=== PATIENT | female | born 1935 | race Caucasian/White ===

== ENCOUNTER → 2021-06-15 | Outpatient (REF) | payer MEDICARE, MEDICAID, SELFPAY ==
[2021-06-15 08:28] LABS: Absolute Lymphocyte Count 2.11 X10^3/uL (0.83-4.51); Absolute Neutrophil Count 3.4 X10^3/uL (2.0-7.7); Basophil# 0.05 X10^3/uL; Basophil% 0.8 % (0-1); Eosinophil# 0.24 X10^3/uL; Eosinophils% 3.7 % (0-5); Hematocrit 39.2 % (37-47); Hemoglobin 12.1 g/dL (12.0-15.0); Lymphocyte # 2.11 X10^3/ul (0.83-4.51); Lymphocyte % 32.8 % (19-41); Mean Corp Hgb Conc 30.9 g/dL (32-36); Mean Corpuscular Hgb 28.3 pg (27.0-32.0); Mean Corpuscular Volume 91.6 fL (81-99); Mean Platelet Vol. 11.2 fl (6.2-12.0); Monocyte# 0.65 X10^3/uL; Monocyte% 10.1 % (0-10); NRBC Flagged by Analyzer 0 % (0-5); Neutrophil # 3.37 X10^3/uL (2.7-7.7); Neutrophil % 52.3 % (47-70); Platelet Count 278 K/mm3 (150-450); RBC Distribution Width CV 16.3 % (11.6-14.6); Red Blood Count 4.28 M/mm3 (4.2-5.4); White Blood Count 6.4 K/mm3 (4.4-11.0)
[2021-06-15 08:46] LABS: ALB/GLOB Ratio 0.8 RATIO (0.9-2.4); AST(SGOT) 15 U/L (15-37); Alanine Aminotransfer ALT/SGPT 15 U/L (13-56); Albumin, Serum 2.9 g/dL (3.2-5.0); Alkaline Phosphatase 69 U/L (45-117); Anion Gap 7 (5-15); BUN 17 mg/dL (7-18); BUN/Creat Ratio 17.1 RATIO (10-20); Calcium,Total 9.3 mg/dL (8.5-10.1); Chloride 107 mmol/L (98-107); Cholesterol 134 mg/dL (200); EST Glomerular Filtration Rate 56 mL/min (>60); Est Glom Filt Rate - Afr Amer 68 mL/min (>60); Globulin 3.8 g/dL (2.2-4.2); Glucose 69 mg/dL (74-106); High Density Lipoprotein 59 mg/dL; Potassium 4.1 mmol/L (3.5-5.1); Protein, Total 6.7 g/dL (6.4-8.2); Sodium Level 141 mmol/L (136-145); Thyroid Stim Hormone (TSH) 0.33 uIU/mL (0.358-3.74); Triglycerides 80 mg/dL; Very Low Density Lipoprotein 16 mg/dL (5-40)
[2021-06-15 08:49] LABS: Vitamin D,25 Hydroxy 27.2 ng/mL
[2021-06-15 09:23] LABS: Hemoglobin A1c 6.9 % (3.8-5.6)
== END | disposition home or self-care (01) ==
LOC: OLS.SWAL 04:00
PROVIDERS: Visit Provider Internal Medicine
DX: E11.69 Type 2 diabetes mellitus with other specified complication (principal); E11.22 Type 2 diabetes mellitus with diabetic chronic kidney disease; N18.9 Chronic kidney disease, unspecified; E07.9 Disorder of thyroid, unspecified; E55.9 Vitamin D deficiency, unspecified
CPT/HCPCS: 36415; 80053; 80061; 82306; 83036; 83735; 84443; 85025

== ENCOUNTER 2021-08-22 09:51 | Emergency (ER) | payer MEDICARE, MEDICAID, SELFPAY ==
[2021-08-22 09:52] VITALS: BP 230/82; PULSE 59; RESP 14; TEMP 36.2; O2SAT 96; BMI 32.0
[2021-08-22 09:56] VITALS: BP 230/82; PULSE 59; RESP 14; TEMP 36.2; O2SAT 96
[2021-08-22 10:05] VITALS: BP 197/90; PULSE 55; RESP 15; O2SAT 97
--- NOTE | 2021-08-22 10:09 | CT_ITS ---
STUDY: CT BRAIN WITHOUT CONTRAST REASON FOR EXAM: Female, 86 years old. Dizziness. RADIATION DOSAGE (If Supplied By Facility): CTDIvol = ( 44.99 ) mGy, DLP = ( 745.49 ) mGycm TECHNIQUE: Transaxial CT imaging of the brain was performed without administration of intravenous contrast material. Individualized dose optimization techniques were used for this CT. COMPARISON: No relevant priors. FINDINGS: Normal soft tissue structures. Normal calvarium. There is moderate cerebral atrophy with widening of the extra-axial spaces and ventricular dilatation. There are areas of decreased attenuation within the white matter tracts of the supratentorial brain, consistent with microvascular disease changes. Right posterior parietal subcortical low-density lesion without associated mass effect or shift of the midline likely representing old infarct. Small bilateral old lacunar infarcts. Normal brainstem. Normal cerebellum. There is no intracranial hemorrhage. Atherosclerotic calcifications of the cavernous internal carotid arteries. Normal visualized paranasal sinuses. CT/Brain/Head without Contrast IMPRESSION: 1. Chronic involutional changes of the brain. 2. Right posterior parietal low-density lesion without mass effect or shift of midline likely due to old infarct. Correlation with MRI of the brain is recommended to exclude subacute changes or underlying mass. 3. Small bilateral lacunar infarcts in basal ganglia. 4. Otherwise no acute intracranial process. Electronically Signed: David Girard MD at 11:05 EDT ,
--- NOTE | 2021-08-22 10:09 | EKG12_ITS ---
Test Reason : DIZZINESS Blood Pressure : / mmHG Vent. Rate : 047 BPM Atrial Rate : 047 BPM P-R Int : 162 ms QRS Dur : 084 ms QT Int : 484 ms P-R-T Axes : 029 063 009 degrees QTc Int : 428 ms Sinus bradycardia with sinus arrhythmia Otherwise normal ECG Confirmed by SHANNAN FLOYD, RIAN ([id number]), newspaper copy editor PABLO MYLES ([id number]) on 08/25/2021 11:13:03 AM Referred By: NORBERTO Confirmed By:RIAN CAMPBELL MD
--- NOTE | 2021-08-22 10:10 | ED.VIS.STROK ---
HPI History of Present Illness Chief Complaint: Dizziness Informant: patient Onset/Context/Timing Onset: Weeks Context: Gradual Onset Timing: Intermittent Quality and Location: Negative for Right Facial Droop, Left Facial Droop, Right Face Paresthesia, Left Face Parasthesia, Right Arm Parasthesia, Right Leg Parasthesia, Left Leg Parasthesia, Right Arm Weakness, Left Arm Weakness, Right Leg Weakness, Left Leg Weakness, Slurred Speech, Expressive Aphasia and Receptive Aphasia Current Severity: Mild Maximum Severity: Moderate Associated Symptoms Associated Symptoms: Positive for Nausea and Vomiting; Negative for Headache and Chest Pain Narrative Narrative: 86-year-old female from an extended care facility. Has an extensive past medical history of stroke, COPD, diabetes and mild dementia. Reportedly brought in today for dizziness worse with head movement. She had nausea and vomiting today. This may have been going on for several days to significantly longer. Patient states she basically has not felt well since her son of lung cancer 3 months ago. She denies any headache or fall. She denies any chest pain or shortness of breath. She denies any abdominal pain or any fever. Prior similar symptoms: No Recent Illness/Hospitalization: No PFSH PFSH Medical History Carotid artery occlusion Cerebral infarct COPD (chronic obstructive pulmonary disease) Dementia Depression Diabetes GERD (gastroesophageal reflux disease) Hearing loss Kidney disease Obesity Thyroid disease UTI (urinary tract infection) Weakness Home Medications meclizine 25 mg PO TID PRN #20 tab 08/22/21 [Rx Last Taken Unknown] ondansetron 4 mg PO Q8H PRN 3 Days tab 08/22/21 [Rx Last Taken Unknown] Allergy/AdvReac Type Severity Reaction Status Date / Time banana Allergy Hives Verified 08/22/21 09:57 peanut butter Allergy Hives Uncoded 08/22/21 09:57 Social History Smoking Status: Never smoker ROS ROS ED ROS Narrative Room spinning dizziness. Nausea and vomiting. Review of Systems ROS Unobtainable: Denies due to encephalopathy Constitutional Constitutional ED: Denies fever(s) Eyes Eyes: Denies change in vision ENT ENT ED: Denies ear pain Cardiovascular Cardiovascular: Denies chest pain Respiratory/Chest Respiratory/Chest: Denies dyspnea Gastrointestinal Gastrointestinal: Reports nausea and vomiting; Denies abdominal pain or diarrhea Genitourinary Genitourinary ED: Denies dysuria Musculoskeletal Musculoskeletal: Denies myalgias Integumentary Denies rash Neurologic Neurologic: Denies headache(s) Psychiatric Psychiatric: Denies depression Endocrine Endocrinology: Denies polyuria Hematologic/Lymphatic Hematologic/Lymphatic: Denies easy bruising Allergic/Immunologic Allergic/Immunologic ED: Denies urticaria EXAM Physical Exam Narrative Exam Narrative: 86-year-old female no acute distress. Vital signs initially blood pressure 230/82 1 mm no evidence 187/90. She is in no distress. She is holding an emesis bag. H EENT exam pupils are round reactive light. No facial droop. Normal speech. No head trauma. Neck nontender. Lungs clear to auscultation. Heart regular rhythm no murmur. Abdomen soft nontender. Neurologically she is awake. She is alert. She knows she is at the hospital. She is moving all 4 extremities. 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 Dorsi plantarflexion intact. NIH score of 0. Hallpike maneuvers she states it does make her dizziness worse. Ear canals there is no significant wax. Const Vital Signs: 08/22/21 09:52 08/22/21 09:56 08/22/21 10:01 Temperature 97.2 F L 97.2 F L Temperature Source Temporal Temporal Pulse Rate 59 L 59 L Respiratory Rate 14 14 Respiratory Effort Normal Non-Labored Respiratory Pattern Normal Blood Pressure 230/82 H 230/82 H Blood Pressure Mean 131 131 Pulse Ox 96 96 Oxygen Delivery Method Room Air Room Air 08/22/21 10:05 08/22/21 11:03 Temperature 96.9 F L Temperature Source Temporal Pulse Rate 55 L 88 Respiratory Rate 15 17 Respiratory Effort Respiratory Pattern Blood Pressure 197/90 H 153/76 H Blood Pressure Mean 125 101 Pulse Ox 97 92 Oxygen Delivery Method Room Air Nasal Cannula Positive well nourished and well developed; Negative for cachectic, contractures or unkempt General Appearance ED: well developed and NAD; Negative for unkempt, cachectic or contractures Nutritional Appearance: Negative for cachectic HEENT Reports moist mucous membranes atraumatic; Negative for trauma Eyes PERRL and EOMs intact bilaterally General Eye ED: Negative for pale conjunctiva or scleral icterus Neck no lymphadenopathy, supple and no JVD General: Negative for tenderness Chest Wall inspection of chest normal and palpation of chest normal Resp normal respiratory effort and clear to auscultation bilaterally Auscultation: Negative for rales, rhonchi or wheezes Cardio no murmurs Rate: regular rate Rhythm: regular rhythm Heart Sounds: S1 normal and S2 normal GI normal to inspection, nondistended, normoactive bowel sounds, soft to palpation, non-tender, non-distended and no masses Inspection: Negative for abdominal distention Auscultation: normoactive bowel sounds Palpation: Negative for tender, guarding or rebound tenderness present Back/Spine no CVA tenderness General Back: Negative for CVA tenderness Cervical Spine: Negative for cervical spine tenderness Thoracic Spine / Upper Back: Negative for thoracic spinal tenderness Extremity normal to inspection General Extremety ED: Negative for deformity, edema or tenderness General Extremity: Negative for deformity or edema Neuro Sensorium / Orientation: alert, oriented to person and oriented to place Speech: speech normal Motor Exam: strength 5/5 throughout Psych mental status grossly normal Appearance: Negative for unkempt Attitude: No agitated Mood & Affect: depressed; Negative for tearful Skin no wounds Lesions: no lesions Rashes: no rashes STROKE Vital Signs/Narrative: Vital Signs Temp Pulse Resp BP Pulse Ox 08/22/21 11:03 96.9 F L 88 17 153/76 H 92 08/22/21 10:05 55 L 15 197/90 H 97 08/22/21 09:56 97.2 F L 59 L 14 230/82 H 96 08/22/21 09:52 97.2 F L 59 L 14 230/82 H 96 MDM MDM MDM Narrative Medical decision making narrative: 86-year-old female with dizziness may be vertigo. She also has acute on chronic hypertension. She will be treated with Zofran for her nausea. Liter of fluid. Screening labs and CAT scan to be obtained. She will be given Ativan for suspected vertigo. Repeat exams the patient is asleep after being giving the medications both for nausea Zofran and Ativan for the dizziness that we feel is most likely vertigo. She will be reassessed. Currently her pressure is much better 153/76. She is resting comfortably. She will be discharged back to the [facility] after a period of observation. Lab Data Attestation: I reviewed the patient's lab results. Lab results narrative: CBC normal white count 9. H&H 12 and 39. Electrolytes unremarkable gap of 5 normal BUN and creatinine of 12 and 1 glucose 190. Labs: Laboratory Results - last 24 hr 08/22/21 08/22/21 10:20 10:20 WBC 9.2 RBC 4.25 Hgb 12.3 Hct 39.6 MCV 93.2 MCH 28.9 MCHC 31.1 L RDW Std Deviation 48.3 H RDW Coeff of Suzy 14.1 Plt Count 230 MPV 10.7 Immature Gran % (Auto) 0.300 Neut % (Auto) 77.9 H Lymph % (Auto) 14.8 L [place] % (Auto) 5.5 Eos % (Auto) 1.0 Baso % (Auto) 0.5 Absolute Neuts (auto) 7.2 Absolute Lymphs (auto) 1.37 Nucleated RBC % 0 Sodium 142 Potassium 4.1 Chloride 108 H Carbon Dioxide 29.0 Anion Gap 5 BUN 12 Creatinine 1.08 H Estim Creat Clear Calc 30.67 Est GFR (MDRD) Af Amer 62 Est GFR (MDRD) Non-Af 51 L BUN/Creatinine Ratio 11.1 Glucose 190 H Calcium 9.1 Radiography Diagnostic Testing: Clinical Impression(s) from Imaging Studies Brain CT 08/22/21 10:09 IMPRESSION: 1. Chronic involutional changes of the brain. 2. Right posterior parietal low-density lesion without mass effect or shift of midline likely due to old infarct. Correlation with MRI of the brain is recommended to exclude subacute changes or underlying mass. 3. Small bilateral lacunar infarcts in basal ganglia. 4. Otherwise no acute intracranial process. Electronically Signed: David Girard MD at 11:05 EDT , CAT scan shows most likely an old right posterior infarct. Along with other chronic changes. Rhythm Strip Rhythm Strip: Sinus Rhythm Rate: 47 EKG Initial EKG: Attestation: I personally reviewed and interpreted this EKG as follows: Interpretation: Sinus Rhythm and Sinus Bradycardia Comments: Sinus bradycardia rate of 47 no acute signs of LA or ischemia. Stroke Documentation Questions Stroke Team Activated: No Discharge Plan Triage Chief Complaint: Dizziness ED Provider: Ady Prajapati Dx/Rx/DC Orders Clinical Impression: Dizziness, Vertigo, History of stroke, History of essential hypertension Instructions: ED BPV Vertigo Prescriptions: New meclizine 25 mg tablet 25 mg PO TID PRN (Reason: dizziness) Qty: 20 RF: 0 ondansetron 4 mg tablet,disintegrating 4 mg PO Q8H PRN (Reason: nausea and vomiting) 3 Days RF: 0 Primary Care Provider: Billie De Leon Referrals: Billie De Leon MD [Primary Care Provider] - 3-5 Days if not improving Activity Restrictions/Additional Instructions: Dizziness secondary to vertigo. Antivert for the vertigo. Follow-up if not improving. Zofran for nausea. Disposition Disposition: Home, Self Care
[2021-08-22] MEDS: Ondansetron 4 MG/2 ML Vial IV (10:21)
[2021-08-22] MEDS: 0.9% Normal Saline 1,000 ML 1000 ML IV (10:21)
[2021-08-22] MEDS: LORazepam 2 MG/ML Syringe 1 MG IV (10:22)
[2021-08-22 10:32] LABS: Absolute Lymphocyte Count 1.37 X10^3/uL (0.83-4.51); Absolute Neutrophil Count 7.2 X10^3/uL (2.0-7.7); Basophil# 0.05 X10^3/uL; Basophil% 0.5 % (0-1); Eosinophil# 0.09 X10^3/uL; Hematocrit 39.6 % (37-47); Hemoglobin 12.3 g/dL (12.0-15.0); Lymphocyte # 1.37 X10^3/ul (0.83-4.51); Lymphocyte % 14.8 % (19-41); Mean Corp Hgb Conc 31.1 g/dL (32-36); Mean Corpuscular Hgb 28.9 pg (27.0-32.0); Mean Corpuscular Volume 93.2 fL (81-99); Mean Platelet Vol. 10.7 fl (6.2-12.0); Monocyte# 0.51 X10^3/uL; Monocyte% 5.5 % (0-10); NRBC Flagged by Analyzer 0 % (0-5); Neutrophil # 7.19 X10^3/uL (2.7-7.7); Neutrophil % 77.9 % (47-70); Platelet Count 230 K/mm3 (150-450); RBC Distribution Width CV 14.1 % (11.6-14.6); RBC Distribution Width SD 48.3 fl (35.1-43.9); Red Blood Count 4.25 M/mm3 (4.2-5.4); White Blood Count 9.2 K/mm3 (4.4-11.0)
[2021-08-22 10:45] LABS: Anion Gap 5 (5-15); BUN 12 mg/dL (7-18); BUN/Creat Ratio 11.1 RATIO (10-20); Calcium,Total 9.1 mg/dL (8.5-10.1); Chloride 108 mmol/L (98-107); Creatinine, Serum 1.08 mg/dL (0.55-1.02); EST Glomerular Filtration Rate 51 mL/min (>60); Est Glom Filt Rate - Afr Amer 62 mL/min (>60); Estimated Creatinine Clearance 30.67 ml/min; Glucose 190 mg/dL (74-106); Potassium 4.1 mmol/L (3.5-5.1); Sodium Level 142 mmol/L (136-145)
[2021-08-22 11:03] VITALS: BP 153/76; PULSE 88; RESP 17; TEMP 36.1; O2SAT 92
[2021-08-22 12:58] VITALS: BP 145/52; PULSE 73; RESP 17; O2SAT 95
[2021-08-22 14:26] VITALS: PULSE 67; RESP 16
== END 2021-08-22 14:35 | disposition home or self-care (01) ==
PROVIDERS: Emergency Provider Emergency Medicine; PCP Internal Medicine; Visit Provider Emergency Medicine
DX: R42 Dizziness and giddiness (principal); F03.90 Unspecified dementia, unspecified severity, without behavioral disturbance, psychotic disturbance, mood disturbance, and anxiety; J44.9 Chronic obstructive pulmonary disease, unspecified; E11.9 Type 2 diabetes mellitus without complications; Z86.73 Personal history of transient ischemic attack (TIA), and cerebral infarction without residual deficits; K21.9 Gastro-esophageal reflux disease without esophagitis; Z87.440 Personal history of urinary (tract) infections; E66.9 Obesity, unspecified; I10 Essential (primary) hypertension; Z68.32 Body mass index [BMI] 32.0-32.9, adult
CPT/HCPCS: 70450; 80048; 85025; 93005; 96361; 96374; 96375; 99285; J7030; J2405

== ENCOUNTER 2021-10-24 13:27 | Inpatient (IN) | payer MEDICARE, MEDICAID, SELFPAY ==
[2021-10-24 13:28] VITALS: BP 159/53; PULSE 58; RESP 18; TEMP 36.8; O2SAT 94; BMI 34.9
--- NOTE | 2021-10-24 13:36 | ED.VIS.LOWEX ---
HPI History of Present Illness Chief Complaint: Lower Extremity Injury Informant: patient Occured/Mechanism Mechanism/Context: Yes fall Onset/Context/Timing Onset: Today Quality of Pain: Aching and Throbbing Current Severity: Mild Maximum Severity: Moderate Narrative Narrative: Patient presents from [facility] secondary to fall with left foot and ankle injury. She reportedly fell out of bed this morning. When she tried to get her self back up she fell again. She states she is unable to put any weight on her left foot and ankle. She denies any other injury from the fall. Injury occurred nearly 2 hours prior to arrival. [facility] Medical History Carotid artery occlusion Cerebral infarct COPD (chronic obstructive pulmonary disease) Dementia Depression Diabetes GERD (gastroesophageal reflux disease) Hearing loss Kidney disease Obesity Thyroid disease UTI (urinary tract infection) Weakness Home Medications clopidogrel 75 mg PO DAILY 08/22/21 [History Last Taken Unknown] glipizide 2.5 mg PO DAILY 08/22/21 [History Last Taken Unknown] meclizine 25 mg PO TID PRN #20 tab 08/22/21 [Rx Last Taken Unknown] ondansetron 4 mg PO Q8H PRN 3 Days tab 08/22/21 [Rx Last Taken Unknown] atorvastatin 20 mg PO QHS 10/24/21 [History Last Taken Unknown] bisacodyl 10 mg [place] DAILY PRN 10/24/21 [History Last Taken Unknown] ferrous sulfate 325 mg PO BID 10/24/21 [History Last Taken Unknown] fluoxetine 20 mg PO DAILY 10/24/21 [History Last Taken Unknown] insulin glargine 16 unit SUBCUT BREAKFAST 10/24/21 [History Last Taken Unknown] levothyroxine 88 mcg PO DAILY 10/24/21 [History Last Taken Unknown] magnesium hydroxide [Milk of Magnesia] 30 ml PO DAILY PRN 10/24/21 [History Last Taken Unknown] metformin 1,000 mg PO BID 10/24/21 [History Last Taken Unknown] metoclopramide HCl [Reglan] 5 mg PO BID 10/24/21 [History Last Taken Unknown] pantoprazole 40 mg PO DAILY 10/24/21 [History Last Taken Unknown] pioglitazone 30 mg PO DAILY 10/24/21 [History Last Taken Unknown] Allergy/AdvReac Type Severity Reaction Status Date / Time banana Allergy Hives Verified 10/24/21 13:31 peanut butter Allergy Hives Uncoded 10/24/21 13:31 Social History Smoking Status: Former smoker ROS ROS ED Constitutional Constitutional ED: Denies chills or fever(s) Eyes Eyes: Denies change in vision ENT ENT ED: Denies sore throat Cardiovascular Cardiovascular: Denies chest pain Respiratory/Chest Respiratory/Chest: Denies cough or dyspnea Gastrointestinal Gastrointestinal: Denies abdominal pain, nausea or vomiting Musculoskeletal Musculoskeletal: Reports arthralgias; Denies back pain or neck pain Integumentary Denies Abrasions or rash Neurologic Neurologic: Denies headache(s) or paresthesias Psychiatric Psychiatric: Denies anxiety or depression Allergic/Immunologic Allergic/Immunologic ED: Denies urticaria EXAM Physical Exam Const Vital Signs: 10/24/21 13:28 Temperature 98.2 F Temperature Source Oral Pulse Rate 58 L Respiratory Rate 18 Blood Pressure 159/53 H Blood Pressure Mean 88 Pulse Ox 94 Oxygen Delivery Method Room Air Positive well nourished and well developed General Appearance ED: well developed HEENT Reports moist mucous membranes Eyes PERRL Neck full ROM and supple Chest Wall inspection of chest normal and palpation of chest normal Resp normal respiratory effort and clear to auscultation bilaterally Cardio regular rate and regular rhythm GI non-tender Palpation: soft Extremity Extremity Narrative: Tenderness palpation with mild edema over the lateral malleolus of the left ankle. No tenderness at the knee or hip. Strong distal pulses. No abrasions or ecchymoses. Neuro oriented x3 Sensorium / Orientation: alert Psych mental status grossly normal Skin Lesions: no lesions Rashes: no rashes MDM MDM MDM Narrative Medical decision making narrative: Patient sent for x-rays of the left foot and ankle. Lab Data Labs: Laboratory Results - last 24 hr 10/24/21 10/24/21 14:15 14:15 WBC 14.0 H RBC 4.41 Hgb 12.7 Hct 41.4 MCV 93.9 MCH 28.8 MCHC 30.7 L RDW Std Deviation 51.2 H RDW Coeff of Suzy 14.6 Plt Count 279 MPV 10.8 Immature Gran % (Auto) 0.400 Neut % (Auto) 78.6 H Lymph % (Auto) 14.0 L [place] % (Auto) 5.7 Eos % (Auto) 1.0 Baso % (Auto) 0.3 Absolute Neuts (auto) 11.0 H Absolute Lymphs (auto) 1.96 Nucleated RBC % 0 Sodium 139 Potassium 4.2 Chloride 105 Carbon Dioxide 26.0 Anion Gap 8 BUN 27 H Creatinine 1.22 H Estim Creat Clear Calc 27.15 Est GFR (MDRD) Af Amer 54 L Est GFR (MDRD) Non-Af 45 L BUN/Creatinine Ratio 22.1 H Glucose 113 H Calcium 9.3 Radiography Diagnostic Testing: Clinical Impression(s) from Imaging Studies Ankle X-Ray 10/24/21 13:42 IMPRESSION: Trimalleolar fractures with disruption of the tibiotalar joint. Electronically Signed: David Girard MD at 14:28 EDT , Foot X-Ray 10/24/21 13:42 IMPRESSION: Images of the distal tibia and fibula better visualized on the ankle views. No other fractures are seen. Electronically Signed: David Girard MD at 14:30 EDT , Treatment and Re-Evaluation Narrative: Left foot and ankle x-rays reveal a trimalleolar ankle fracture per my interpretation. At that time IV line is established and lab work obtained. Patient given a small dose of morphine for pain control. Ankle was placed in a posterior plus sugar-tong Ortho-Glass splint. Following splint application she has good cap refill in her toes. I spoke with Dr. Francisco for podiatry. He reviewed the patient's images and will see the patient in consult in the emergency room. EKG and chest x-ray will be obtained for preop clearance. In light of the patient's history of COPD, diabetes, reflux, dementia I will speak with hospitalist for admission. Discharge Plan Triage Chief Complaint: Lower Extremity Injury ED Provider: Margarita Jamison Dx/Rx/DC Orders Clinical Impression: Closed trimalleolar fracture of ankle Prescriptions: No Action meclizine 25 mg tablet 25 mg PO TID PRN (Reason: dizziness) Qty: 20 RF: 0 ondansetron 4 mg tablet,disintegrating 4 mg PO Q8H PRN (Reason: nausea and vomiting) 3 Days RF: 0 clopidogrel 75 mg tablet 75 mg PO DAILY RF: 0 glipizide 5 mg tablet 2.5 mg PO DAILY RF: 0 atorvastatin 20 mg Tablet 20 mg PO QHS RF: 0 metoclopramide HCl [Reglan] 5 mg Tablet 5 mg PO BID RF: 0 magnesium hydroxide [Milk of Magnesia] 400 mg/5 mL Suspension 30 ml PO DAILY PRN (Reason: Constipation) RF: 0 bisacodyl 10 mg Suppository 10 mg [place] DAILY PRN (Reason: Constipation) RF: 0 pantoprazole 40 mg Tablet,Delayed Release (Dr/Ec) 40 mg PO DAILY RF: 0 ferrous sulfate 325 mg (65 mg iron) Tablet 325 mg PO BID RF: 0 metformin 1,000 mg Tablet 1,000 mg PO BID RF: 0 pioglitazone 30 mg Tablet 30 mg PO DAILY RF: 0 fluoxetine 20 mg Capsule 20 mg PO DAILY RF: 0 insulin glargine 100 unit/mL Cartridge 16 unit SUBCUT BREAKFAST RF: 0 levothyroxine 88 mcg Capsule 88 mcg PO DAILY RF: 0 Primary Care Provider: Billie De Leon Referrals: Billie De Leon MD [Primary Care Provider] - Disposition Disposition: Acute Care Hospital [facility]
--- NOTE | 2021-10-24 13:42 | RAD_ITS ---
STUDY: X-RAY - LEFT ANKLE REASON FOR EXAM: Female, 86 years old. Injury TECHNIQUE: 3 view(s) of the ankle. COMPARISON: None. FINDINGS: Oblique displaced fracture of the distal fibula. Intra-articular fracture of the posterior distal tibia. Transverse displaced fracture of the medial malleolus. Normal medial and lateral malleoli. Widening and mild lateral subluxation of the tibiotalar joint. Plantar and posterior calcaneal spurs. The visualized subtalar, talonavicular, calcaneocuboid and tarsal articulations are normal. Soft tissue swelling. RAD/Ankle min 3 Views IMPRESSION: Trimalleolar fractures with disruption of the tibiotalar joint. Electronically Signed: David Girard MD at 14:28 EDT ,
--- NOTE | 2021-10-24 13:42 | RAD_ITS ---
STUDY: X-RAY - LEFT FOOT CLINICAL: Female, 86 years old. Injury TECHNIQUE: 3 view(s) of the foot. COMPARISON: None. FINDINGS: Plantar and posterior calcaneal spurs. Normal visualized subtalar, talonavicular, calcaneocuboid, tarsal and tarsometatarsal articulations. Normal metatarsi. Normal metatarsophalangeal joint of the great toe. Normal tibial and fibular sesamoid bones. Normal interphalangeal joint of the great toe. Normal phalanges of the great toe. Normal second through fifth metatarsophalangeal joints. Normal interphalangeal joints and phalanges of the lesser toes. Fractures of the distal tibia and fibula are again seen. Unremarkable soft tissues. RAD/Foot min 3 Views IMPRESSION: Images of the distal tibia and fibula better visualized on the ankle views. No other fractures are seen. Electronically Signed: David Girard MD at 14:30 EDT ,
[2021-10-24] MEDS: Ondansetron 4 MG/2 ML Vial IV (14:16)
[2021-10-24] MEDS: Morphine 2 MG/ML Syringe IV (14:16)
[2021-10-24 14:22] LABS: Absolute Lymphocyte Count 1.96 X10^3/uL (0.83-4.51); Basophil# 0.04 X10^3/uL; Basophil% 0.3 % (0-1); Eosinophil# 0.14 X10^3/uL; Hematocrit 41.4 % (37-47); Hemoglobin 12.7 g/dL (12.0-15.0); Lymphocyte # 1.96 X10^3/ul (0.83-4.51); Mean Corp Hgb Conc 30.7 g/dL (32-36); Mean Corpuscular Hgb 28.8 pg (27.0-32.0); Mean Corpuscular Volume 93.9 fL (81-99); Mean Platelet Vol. 10.8 fl (6.2-12.0); Monocyte% 5.7 % (0-10); NRBC Flagged by Analyzer 0 % (0-5); Neutrophil # 10.97 X10^3/uL (2.7-7.7); Neutrophil % 78.6 % (47-70); Platelet Count 279 K/mm3 (150-450); RBC Distribution Width CV 14.6 % (11.6-14.6); RBC Distribution Width SD 51.2 fl (35.1-43.9); Red Blood Count 4.41 M/mm3 (4.2-5.4)
[2021-10-24 14:36] LABS: Anion Gap 8 (5-15); BUN 27 mg/dL (7-18); BUN/Creat Ratio 22.1 RATIO (10-20); Calcium,Total 9.3 mg/dL (8.5-10.1); Chloride 105 mmol/L (98-107); Creatinine, Serum 1.22 mg/dL (0.55-1.02); EST Glomerular Filtration Rate 45 mL/min (>60); Est Glom Filt Rate - Afr Amer 54 mL/min (>60); Estimated Creatinine Clearance 27.15 ml/min; Glucose 113 mg/dL (74-106); Potassium 4.2 mmol/L (3.5-5.1); Sodium Level 139 mmol/L (136-145)
--- NOTE | 2021-10-24 15:08 | CT_ITS ---
STUDY: CT LEFT ANKLE WITHOUT CONTRAST REASON FOR EXAM: Female, 86 years old. Trimalleolar ankle fracture RADIATION DOSAGE (If Supplied By Facility): CTDIvol = ( 15.35 ) mGy, DLP = ( 395.98 ) mGycm TECHNIQUE: Thin section transaxial imaging of the ankle was obtained, with sagittal and coronal reconstructed images. Individualized dose optimization techniques were used for this CT. COMPARISON: Radiographs of the foot and ankle of the same day. FINDINGS: Displaced fracture of the distal fibula. Adjacent small intra-articular fracture of the anterior distal tibia. Intra-articular slightly displaced fracture of the posterior distal tibia. Comminuted displaced fracture of the medial malleolus. Normal tibiotalar articulation and talar dome. The remainder of the osseous structures appear intact. Plantar and posterior vertebral spurs. Widening of the medial aspect of the tibiotalar joint with minimal medial subluxation of the distal tibia. Mild widening of the medial aspect of the ankle mortise. Normal tarsometatarsal articulations and visualized metatarsi. Diffuse soft tissue swelling. CT/Extremity Lower without Contra IMPRESSION: Fractures of the distal tibia and fibula as described above with disruption of the tibiotalar joint. Electronically Signed: David Girard MD at 15:49 EDT ,
--- NOTE | 2021-10-24 15:11 | EKG12_ITS ---
Test Reason : DYSRYTHMIA Blood Pressure : / mmHG Vent. Rate : 061 BPM Atrial Rate : 061 BPM P-R Int : 158 ms QRS Dur : 080 ms QT Int : 436 ms P-R-T Axes : 058 065 026 degrees QTc Int : 438 ms Sinus rhythm with Premature atrial complexes Otherwise normal ECG Confirmed by LO FLOYD, RAUL ([id number]), science editor JESSIKA LINDSEY ([id number]) on 10/26/2021 12:43:13 PM Referred By: JAMES Confirmed By:RAUL BLANCHARD MD
--- NOTE | 2021-10-24 15:27 | RAD_ITS ---
STUDY: X-RAY CHEST REASON FOR EXAM: Female, 86 years old. Shortness of breath TECHNIQUE: Single AP portable view of the chest. COMPARISON: None. FINDINGS: No focal infiltrate is seen. There is no demonstrated pleural abnormality. There is mild cardiac enlargement. Normal mediastinum and toya. Normal visualized pulmonary arteries. Normal visualized aortic arch and descending thoracic aorta. The osseous structures are grossly intact. There is no demonstrated abnormality of the visualized soft tissue structures of the upper abdomen. RAD/Chest 1 View (Portable) IMPRESSION: 1. Borderline to mild cardiomegaly. 2. No active pulmonary disease. Electronically Signed: David Girard MD at 15:51 EDT ,
--- NOTE | 2021-10-24 15:38 | PCM.HP.STD ---
HPI - General General Date of Admission: 10/24/21 Date of Service: 10/24/21 Chief Complaint: Fall in residential resulting into left ankle injury today HPI Narrative FANG HERNDON, is a 86 F was brought to ED from [facility] after she fell with left foot and ankle injury. As per nursing note, Jose Armando from the bed was not able to get up and required 2 people assist. Complain of left ankle pain and swelling. Unable to put any weight on left foot. Ankle x-ray shows trimalleolar fracture with disruption of tibiotalar joint. Manufacturing Inspector Dr. Francisco is consulted. Chest x-ray shows no active pulmonary disease, mild cardiomegaly. CT lower extremity shows distal tibia fibular fracture with disruption of tibiotalar joint. Patient does not have any recent chest pain, anginal-like symptoms, shortness of breath on exertion, wheezing, dizziness, near-syncope or syncope. She fell down because of loss of balance denies any prodromal symptoms. No loss of consciousness. Denies recent UTI or burning micturition bleeding. No constipation. Had bowel movement today. [facility] Medical History Carotid artery occlusion Cerebral infarct COPD (chronic obstructive pulmonary disease) Dementia Depression Diabetes GERD (gastroesophageal reflux disease) Hearing loss Kidney disease Obesity Thyroid disease UTI (urinary tract infection) Weakness Home Medications clopidogrel 75 mg PO DAILY 08/22/21 [History Last Taken Unknown] glipizide 2.5 mg PO DAILY 08/22/21 [History Last Taken Unknown] meclizine 25 mg PO TID PRN #20 tab 08/22/21 [Rx Last Taken Unknown] ondansetron 4 mg PO Q8H PRN 3 Days tab 08/22/21 [Rx Last Taken Unknown] atorvastatin 20 mg PO QHS 10/24/21 [History Last Taken Unknown] bisacodyl 10 mg [place] DAILY PRN 10/24/21 [History Last Taken Unknown] ferrous sulfate 325 mg PO BID 10/24/21 [History Last Taken Unknown] fluoxetine 20 mg PO DAILY 10/24/21 [History Last Taken Unknown] insulin glargine 16 unit SUBCUT BREAKFAST 10/24/21 [History Last Taken Unknown] levothyroxine 88 mcg PO DAILY 10/24/21 [History Last Taken Unknown] magnesium hydroxide [Milk of Magnesia] 30 ml PO DAILY PRN 10/24/21 [History Last Taken Unknown] metformin 1,000 mg PO BID 10/24/21 [History Last Taken Unknown] metoclopramide HCl [Reglan] 5 mg PO BID 10/24/21 [History Last Taken Unknown] pantoprazole 40 mg PO DAILY 10/24/21 [History Last Taken Unknown] pioglitazone 30 mg PO DAILY 10/24/21 [History Last Taken Unknown] Allergy/AdvReac Type Severity Reaction Status Date / Time banana Allergy Hives Verified 10/24/21 13:31 peanut butter Allergy Hives Uncoded 10/24/21 13:31 Social History Smoking Status: Former smoker ROS ROS Narrative Constitutional: Mild chronic fatigue and weakness. No fever HEENT: Reports systems reviewed and no addt'l complaints, except as documented Respiratory/Chest: Denies chest pain, shortness of breath at rest or with mild exertion Gastrointestinal: Denies coffee ground emesis, hematemesis or vomiting Genitourinary: Denies burning urination or new urinary tract symptoms Musculoskeletal: Ambulates on a walker. Rest as mentioned in HPI Neurologic: Denies seizure-like activity skin: No ulcer. No rash Endocrinology: Hypothyroidism, diabetes mellitus type 2. Blood sugar controlled. Reports systems reviewed and no addt'l complaints, except as documented Hematologic/Lymphatic: Reports systems reviewed and no addt'l complaints, except as documented Psychiatric: Dementia, depression Rest 14 ROS are incomplete/unobtainable because of history of dementia and depression Vital Signs Vital Signs Vital Signs: 10/24/21 13:28 Temperature 98.2 F Temperature Source Oral Pulse Rate 58 L Respiratory Rate 18 Blood Pressure 159/53 H Blood Pressure Mean 88 Pulse Ox 94 Oxygen Delivery Method Room Air Weight Weight: 190 lb 14.725 oz Body Mass Index (BMI) 34.9 Physical Exam Narrative Physical exam General: Alert, Oriented x3, Cooperative HEENT: Atraumatic, PERRLA, EOMI, Normocephalic Oral: Oral mucosa dry. No Gingival or Mucosal Lesions/ Ulcerations Neck: Supple, No JVD, Negative Carotid Bruits Lungs: Air entry diminished in bilateral lung bases. No crepitation/rhonchi Cardiovascular: Regular rate, Regular Rhythm, Normal S1, Normal S2, No murmurs Abdomen: Bowel Sounds Present, Soft, Non Tender, Non-Distended : No renal angle tenderness. No suprapubic tenderness. Extremities: No edema, Capillary Refill Less than 3 Seconds Skin: No rashes, No breakdown Musculoskeletal: Left ankle is Marlon wrapped. Swelling and tenderness over left ankle. Bilateral knee arthritis. Osteoporosis Neurological: Cranial nerves II-XII grossly intact, DTR 2+/4 and Symmetrical, Neuro grossly intact Psych/Mental Status: Normal Affect, Appropriate. Results Lab / Micro Data Result Diagrams: 10/24/21 14:15 10/24/21 14:15 Labs: Laboratory Results - last 24 hr 10/24/21 14:15: WBC 14.0 H, RBC 4.41, Hgb 12.7, Hct 41.4, MCV 93.9, MCH 28.8, MCHC 30.7 L, RDW Std Deviation 51.2 H, RDW Coeff of Suzy 14.6, Plt Count 279, MPV 10.8, Immature Gran % (Auto) 0.400, Neut % (Auto) 78.6 H, Lymph % (Auto) 14.0 L, [place] % (Auto) 5.7, Eos % (Auto) 1.0, Baso % (Auto) 0.3, Absolute Neuts (auto) 11.0 H, Absolute Lymphs (auto) 1.96, Nucleated RBC % 0 10/24/21 14:15: Sodium 139, Potassium 4.2, Chloride 105, Carbon Dioxide 26.0, Anion Gap 8, BUN 27 H, Creatinine 1.22 H, Estim Creat Clear Calc 27.15, Est GFR (MDRD) Af Amer 54 L, Est GFR (MDRD) Non-Af 45 L, BUN/Creatinine Ratio 22.1 H, Glucose 113 H, Calcium 9.3 Radiology Impression Ankle X-Ray 10/24/21 13:42 IMPRESSION: Trimalleolar fractures with disruption of the tibiotalar joint. Electronically Signed: David Girard MD at 14:28 EDT , Foot X-Ray 10/24/21 13:42 IMPRESSION: Images of the distal tibia and fibula better visualized on the ankle views. No other fractures are seen. Electronically Signed: David Girard MD at 14:30 EDT , Assessment & Plan Assessment/Plan (1) Closed trimalleolar fracture of ankle: PLAN: 1. Closed left trimalleolar fracture: CT left ankle individually reviewed and shows closed, comminuted displaced fracture of medial malleolus, displaced fracture of distal fibula, small intra-articular fracture of anterior distal tibia. Disruption of tibiotalar joint. Patient is being admitted on [facility] floor. Plavix is held. Patient is moderate perioperative risk for ankle surgery. Plan for surgery tomorrow by online marketing manager Dr. Francisco. 2. Hypertension: Blood pressure is elevated. Started on lisinopril 5 mg daily. Monitor blood pressure and adjust antihypertensive medications accordingly. Magnesium 1.7. 3. Diabetes mellitus type 2: Glucose in BMP is 113, seems controlled. Accu-Chek insulin is covered with Humalog sliding scale. Hold oral hypoglycemic agents. 4. CKD stage IV: Creatinine is 1.22, BUN 77. Estimated creatinine clearance 77 mill per hour. Monitor BMP daily. 5. History of cerebral infarct, carotid artery occlusion, depression and dementia: Patient lost his son about 6 months ago. He does not have good memory. Continue antidepression medication. 6. Other comorbidities include GERD, hypothyroidism and dyslipidemia: Home medication reconciliation done. On Dulcolax suppository as needed, continued. Continue fluoxetine VTE prophylaxis Heparin 5000 Units twice daily. Hold the night dose before surgery Charges/Coding Visit Charges Inpatient E&M: 62738 Init Hosp L3 Procedures Hospitalists Procedures: 35366 Advncd Care Plan 30 Min
[2021-10-24 15:44] VITALS: BP 177/61; PULSE 62; RESP 18; TEMP 36.8; O2SAT 95
--- NOTE | 2021-10-24 15:50 | ED.RN ---
ATTEMPTED TO TRY TO CALL [facility] ON ADMISSION OF PT. WENT TO [facility]
[2021-10-24 15:59] LABS: Magnesium 1.7 mg/dL (1.6-2.6)
--- NOTE | 2021-10-24 16:29 | CON.PCM_ITS ---
Assessment & Plan Assessment/Plan (1) Closed trimalleolar fracture of ankle: QUALIFIERS: Encounter type: initial encounter Laterality: left Qualified Code(s): S82.852A - Displaced trimalleolar fracture of left lower leg, initial encounter for closed fracture PLAN: Patient examined evaluated, all findings discussed patient detail. Radiographs demonstrate a unstable pronation abduction type ankle fracture to left lower extremity with moderate displacement. CT scan to left lower extremity ordered. Demonstrates displaced trimalleolar ankle fracture with large posterior malleolus fragment. In order to regain function and restore ambulation this patient will require open reduction internal fixation. Skin appears to be intact, edema is well managed, there is mild concerns of for some peripheral arterial disease as patient has history of stroke possible coronary artery disease uncertain. Upon detailed neurovascular examination there are intact pulses, in order to restore function of the limb we will plan for operative management of the fracture on Tuesday of this week. The procedure inherent risks benefits alternative treatments discussed with patient in detail. Due to patient's advanced age and severity of the fracture operative management is required to restore function and prevent any functional decline of the patient due to prolonged nonweightbearing. Patient will be admitted due to unstable gait issue will likely require recovery in the halfway facility. Clopidogrel placed on hold until postprocedure. Patient remain nonweightbearing in her posterior splint until time of operative management. Recommend physical therapy consultation. Recommend case management consultation. Patient receiving oxycodone and morphine as needed for pain control. Patient comfortable at this time no evidence of compartment syndrome or intractable pain. Will continue to follow the patient closely. Surgical management planned for Tuesday of this week. Time is to be determined. HPI Consult Data Date of Consult: 10/24/21 HPI Narrative HPI Narrative: FANG HERNDON, is a 86 F who presents to the ED with a left ankle fracture after falling out of bed at her assisted living facility this morning. Patient noted immediate pain and swelling with inability to bear weight. Patient states that she typically ambulates assisted by a walker, but notes that this is minimal and limited to transfer to the bathroom and kitchen. Patient reports a history of stroke and takes Plavix daily. Patient notes that her pain is well controlled at this time. Patient denies any chest pain calf pain shortness of breath has no other complaints or musculoskeletal pain at this time. Patient denies any neuropraxia or loss in sensation. [facility] Medical History Carotid artery occlusion Cerebral infarct COPD (chronic obstructive pulmonary disease) Dementia Depression Diabetes GERD (gastroesophageal reflux disease) Hearing loss Kidney disease Obesity Thyroid disease UTI (urinary tract infection) Weakness Home Medications clopidogrel 75 mg PO DAILY 08/22/21 [History Last Taken Unknown] glipizide 2.5 mg PO DAILY 08/22/21 [History Last Taken Unknown] meclizine 25 mg PO TID PRN #20 tab 08/22/21 [Rx Last Taken Unknown] ondansetron 4 mg PO Q8H PRN 3 Days tab 08/22/21 [Rx Last Taken Unknown] atorvastatin 20 mg PO QHS 10/24/21 [History Last Taken Unknown] bisacodyl 10 mg [place] DAILY PRN 10/24/21 [History Last Taken Unknown] ferrous sulfate 325 mg PO BID 10/24/21 [History Last Taken Unknown] fluoxetine 20 mg PO DAILY 10/24/21 [History Last Taken Unknown] insulin glargine 16 unit SUBCUT BREAKFAST 10/24/21 [History Last Taken Unknown] levothyroxine 88 mcg PO DAILY 10/24/21 [History Last Taken Unknown] magnesium hydroxide [Milk of Magnesia] 30 ml PO DAILY PRN 10/24/21 [History Last Taken Unknown] metformin 1,000 mg PO BID 10/24/21 [History Last Taken Unknown] metoclopramide HCl [Reglan] 5 mg PO BID 10/24/21 [History Last Taken Unknown] pantoprazole 40 mg PO DAILY 10/24/21 [History Last Taken Unknown] pioglitazone 30 mg PO DAILY 10/24/21 [History Last Taken Unknown] Allergy/AdvReac Type Severity Reaction Status Date / Time banana Allergy Hives Verified 10/24/21 13:31 peanut butter Allergy Hives Uncoded 10/24/21 13:31 Social History Smoking Status: Former smoker ROS Constitutional Constitutional: Denies anorexia, body ache(s) or change in weight Eyes Eyes: Denies blind spots, bloody eye or decreased night vision ENT HEENT: Denies dental pain, foreign body in nose or mouth pain Cardiovascular Cardiovascular: Denies abdominal edema, abdominal pain or chest pain with activity Respiratory/Chest Respiratory/Chest: Denies change in phlegm color, chest congestion or dyspnea on exertion Gastrointestinal Gastrointestinal: Denies belching, bloating or change in bowel habits Physical Exam Narrative Patient is alert oriented to person place and time. Patient seen in bed with intact posterior splint along with sugar-tong. This was removed to eat further evaluate patient's neurovascular status. Vascular: Dorsalis pedis posterior tibial and perforating peroneal pulses biphasic on Doppler examination to left lower extremity. There are some trophic changes to the skin with diminished digital hair growth. Capillary fill time is brisk to lesser digits. +1 pitting edema to left lower extremity perimalleolar region. Neurologic: Light touch protective sensation intact. Patient able to wiggle her digits. Dermatologic: Some ecchymosis to the medial and lateral ankle with associated edema. No evidence of skin tenting or impending skin breakdown. Musculoskeletal: Slight posterior lateral dislocation of left ankle. Left lower extremity strength and range of motion testing deferred due to unstable trimalleolar ankle fracture. Pain limited to ankle, but diffuse in nature. No other musculoskeletal pain at this time. Lab / Micro Data Result Diagrams: 10/24/21 14:15 10/24/21 14:15 Labs: Laboratory Results - last 24 hr 10/24/21 14:15: WBC 14.0 H, RBC 4.41, Hgb 12.7, Hct 41.4, MCV 93.9, MCH 28.8, MCHC 30.7 L, RDW Std Deviation 51.2 H, RDW Coeff of Suzy 14.6, Plt Count 279, MPV 10.8, Immature Gran % (Auto) 0.400, Neut % (Auto) 78.6 H, Lymph % (Auto) 14.0 L, [place] % (Auto) 5.7, Eos % (Auto) 1.0, Baso % (Auto) 0.3, Absolute Neuts (auto) 11.0 H, Absolute Lymphs (auto) 1.96, Nucleated RBC % 0 10/24/21 14:15: Sodium 139, Potassium 4.2, Chloride 105, Carbon Dioxide 26.0, Anion Gap 8, BUN 27 H, Creatinine 1.22 H, Estim Creat Clear Calc 27.15, Est GFR (MDRD) Af Amer 54 L, Est GFR (MDRD) Non-Af 45 L, BUN/Creatinine Ratio 22.1 H, Glucose 113 H, Calcium 9.3 10/24/21 14:15: Magnesium 1.7 Radiology Impression Ankle X-Ray 10/24/21 13:42 IMPRESSION: Trimalleolar fractures with disruption of the tibiotalar joint. Electronically Signed: David Girard MD at 14:28 EDT Reading Location ID and State: [facility] / [place] Tel , Service support , Foot X-Ray 10/24/21 13:42 IMPRESSION: Images of the distal tibia and fibula better visualized on the ankle views. No other fractures are seen. Electronically Signed: David Girard MD at 14:30 EDT Reading Location ID and State: [facility] / [place] Tel , Service support , Lower Extremity CT 10/24/21 15:08 IMPRESSION: Fractures of the distal tibia and fibula as described above with disruption of the tibiotalar joint. Electronically Signed: David Girard MD at 15:49 EDT Reading Location ID and State: [facility] / [place] Tel , Service support , Chest X-Ray 10/24/21 15:27 IMPRESSION: 1. Borderline to mild cardiomegaly. 2. No active pulmonary disease. Electronically Signed: David Girard MD at 15:51 EDT Reading Location ID and State: [facility] / [place] Tel , Service support ,
--- NOTE | 2021-10-24 16:38 | CM.ED ---
FATOU Case Management Note Admitting Diagnosis: Trimallolar Fracture Information Source: Patient Patient currently resides at [facility]. She reports that she has been at [facility] for four months.. since April. Patient said that prior to living at [facility] she resides in an apartment. Patient said that she and her son had lived together but he had of stomach cancer. Next of Kin: Patient said that she has no LNOK as I have outlived them. Patient said that her only child, son, has . Patient said that she has relatives in [place]. Living will and HCPOA- Patient reports she has the Advanced Directives. However, SW did not seen them scanned into the chart. PCP: Patient said that she has no idea who her PCP is. Patient's chart noted that Dr. Billie De Leon is patient's PCP. Specialist: Patient reports she has no specialist Insurance : Patient reports she has [employer]. Patient's chart notes that patient has [employer] and [employer]. RX Insurance: Patient reports [employer] [facility] Lives with: Self Living Arrangements: 1 floor Steps: Patient reports 4 steps ADL's: Patient said that she is independent in her ADL's. Employed: Patient is retired. 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 Alcohol use: Denied Smoking: Denied currently but stated she had smoked when she was younger Safe at Home: Patient said that she felt safe at home until today when she fell. Transportation: Patient reports she does not drive. Patient said that she used to drive. Patient has a shower chair, walker, rails/grab bars. Patient reports no previous SNF or Home Health Care. Patient said that she came to the in 1956 and then her . Patient said that she had one son. DME Needs at Discharge: Unknown Discharge Plan: Undetermined Jess CLEMENTE
[2021-10-24 16:59] VITALS: PULSE 59; BMI 35.1
[2021-10-24 17:50] VITALS: O2SAT 95
[2021-10-24] MEDS: Lactated Ringers 1,000 ML 75 ML IV (20:30)
[2021-10-24] MEDS: Acetaminophen 325 MG Tablet 650 MG PO (20:30)
[2021-10-24] MEDS: Atorvastatin Calcium 20 MG Tablet PO (20:31)
[2021-10-24] MEDS: Lisinopril 5 MG Tablet PO (20:31)
[2021-10-24] MEDS: Heparin Injection (Vial) 5,000 UNIT/ML VIAL 5000 UNIT SC (20:32)
[2021-10-24] MEDS: Insulin Lispro 100 UNIT/ML INSULN.PEN SC (20:48)
[2021-10-24 21:00] VITALS: BP 126/38; PULSE 63; RESP 16; TEMP 37; O2SAT 95
[2021-10-24 21:01] LABS: Bedside Glucose 325 mg/dL (74-106)
[2021-10-25] MEDS: oxyCODONE 5 MG Tablet PO ×4 (00:59→20:15)
[2021-10-25] MEDS: Acetaminophen 325 MG Tablet 650 MG PO ×2 (05:07→20:14)
[2021-10-25] MEDS: Levothyroxine 88 MCG Tablet PO (05:08)
[2021-10-25 05:18] VITALS: BP 135/44; PULSE 61; RESP 16; TEMP 36.6; O2SAT 94
[2021-10-25 05:55] LABS: Absolute Lymphocyte Count 1.75 X10^3/uL (0.83-4.51); Absolute Neutrophil Count 7.2 X10^3/uL (2.0-7.7); Basophil# 0.05 X10^3/uL; Basophil% 0.5 % (0-1); Eosinophil# 0.08 X10^3/uL; Eosinophils% 0.8 % (0-5); Hematocrit 34.7 % (37-47); Hemoglobin 10.9 g/dL (12.0-15.0); Lymphocyte # 1.75 X10^3/ul (0.83-4.51); Lymphocyte % 17.5 % (19-41); Mean Corp Hgb Conc 31.4 g/dL (32-36); Mean Corpuscular Hgb 28.8 pg (27.0-32.0); Mean Corpuscular Volume 91.6 fL (81-99); Mean Platelet Vol. 10.6 fl (6.2-12.0); Monocyte# 0.94 X10^3/uL; Monocyte% 9.4 % (0-10); NRBC Flagged by Analyzer 0 % (0-5); Neutrophil # 7.16 X10^3/uL (2.7-7.7); Neutrophil % 71.5 % (47-70); Platelet Count 227 K/mm3 (150-450); RBC Distribution Width SD 50.4 fl (35.1-43.9); Red Blood Count 3.79 M/mm3 (4.2-5.4)
[2021-10-25 06:55] LABS: Anion Gap 5 (5-15); BUN 31 mg/dL (7-18); BUN/Creat Ratio 31.1 RATIO (10-20); Calcium,Total 8.7 mg/dL (8.5-10.1); Chloride 104 mmol/L (98-107); EST Glomerular Filtration Rate 56 mL/min (>60); Est Glom Filt Rate - Afr Amer 68 mL/min (>60); Glucose 205 mg/dL (74-106); Potassium 4.3 mmol/L (3.5-5.1); Sodium Level 137 mmol/L (136-145); Thyroid Stim Hormone (TSH) 1.17 uIU/mL (0.358-3.74)
[2021-10-25] MEDS: Insulin Lispro 100 UNIT/ML INSULN.PEN SC ×4 (08:05→21:27)
[2021-10-25] MEDS: Insulin Glargine-YFGN 100 UNIT/ML Pen 16 UNIT SC (08:05)
[2021-10-25 09:23] LABS: Hemoglobin A1c 6.9 % (3.8-5.6)
[2021-10-25 10:08] VITALS: BP 106/43; PULSE 56; RESP 16; TEMP 36.1; O2SAT 95
[2021-10-25] MEDS: Pantoprazole Sodium 40 MG Tablet PO (10:11)
[2021-10-25] MEDS: FLUoxetine 20 MG Capsule PO (10:11)
[2021-10-25] MEDS: Heparin Injection (Vial) 5,000 UNIT/ML VIAL 5000 UNIT SC ×2 (10:11→21:27)
[2021-10-25] MEDS: Lisinopril 5 MG Tablet PO (10:11)
[2021-10-25 10:18] LABS: Bedside Glucose 174 mg/dL (74-106)
--- NOTE | 2021-10-25 11:34 | PCM.PN.HOSP ---
Subjective Subjective Follow-up for trimalleolar fracture Complaint of left ankle pain same as yesterday. Objective Data Objective Data Vital Signs: Vital Signs Temp Pulse Resp BP Pulse Ox 97.0 F L 56 L 16 106/43 L 95 10/25/21 10:08 10/25/21 10:08 10/25/21 10:08 10/25/21 10:08 10/25/21 10:08 Oxygen Delivery Method Room Air Weight: 190 lb 14.725 oz Body Mass Index (BMI) 35.1 Intake & Output: Intake and Output for Last 24 Hours 10/23/21 10/24/21 10/25/21 23:59 23:59 23:59 Intake Total 1000 / 1000 Output Total 400 / 400 Balance 600 / 600 Lab / Micro Data Result Diagrams: 10/25/21 05:41 10/25/21 05:41 Labs: Laboratory Results - last 24 hr 10/24/21 14:15: WBC 14.0 H, RBC 4.41, Hgb 12.7, Hct 41.4, MCV 93.9, MCH 28.8, MCHC 30.7 L, RDW Std Deviation 51.2 H, RDW Coeff of Suzy 14.6, Plt Count 279, MPV 10.8, Immature Gran % (Auto) 0.400, Neut % (Auto) 78.6 H, Lymph % (Auto) 14.0 L, [place] % (Auto) 5.7, Eos % (Auto) 1.0, Baso % (Auto) 0.3, Absolute Neuts (auto) 11.0 H, Absolute Lymphs (auto) 1.96, Nucleated RBC % 0 10/24/21 14:15: Sodium 139, Potassium 4.2, Chloride 105, Carbon Dioxide 26.0, Anion Gap 8, BUN 27 H, Creatinine 1.22 H, Estim Creat Clear Calc 27.15, Est GFR (MDRD) Af Amer 54 L, Est GFR (MDRD) Non-Af 45 L, BUN/Creatinine Ratio 22.1 H, Glucose 113 H, Calcium 9.3 10/24/21 14:15: Magnesium 1.7 10/24/21 20:42: POC Glucose 325 H 10/25/21 05:41: WBC 10.0, RBC 3.79 L, Hgb 10.9 L, Hct 34.7 L, MCV 91.6, MCH 28.8, MCHC 31.4 L, RDW Std Deviation 50.4 H, RDW Coeff of Suzy 15.0 H, Plt Count 227, MPV 10.6, Immature Gran % (Auto) 0.300, Neut % (Auto) 71.5 H, Lymph % (Auto) 17.5 L, [place] % (Auto) 9.4, Eos % (Auto) 0.8, Baso % (Auto) 0.5, Absolute Neuts (auto) 7.2, Absolute Lymphs (auto) 1.75, Nucleated RBC % 0 10/25/21 05:41: Sodium 137, Potassium 4.3, Chloride 104, Carbon Dioxide 28.0, Anion Gap 5, BUN 31 H, Creatinine 1.00, Estim Creat Clear Calc 31.60, Est GFR (MDRD) Af Amer 68, Est GFR (MDRD) Non-Af 56 L, BUN/Creatinine Ratio 31.1 H, Glucose 205 H, Calcium 8.7, TSH 1.17 10/25/21 05:41: Hemoglobin A1c 6.9 H 10/25/21 08:01: POC Glucose 174 H Radiography Diagnostic Testing: Radiology Impression Ankle X-Ray 10/24/21 13:42 IMPRESSION: Trimalleolar fractures with disruption of the tibiotalar joint. Electronically Signed: David Girard MD at 14:28 EDT Reading Location ID and State: [facility] / [place] Tel , Service support , Foot X-Ray 10/24/21 13:42 IMPRESSION: Images of the distal tibia and fibula better visualized on the ankle views. No other fractures are seen. Electronically Signed: David Girard MD at 14:30 EDT , Lower Extremity CT 10/24/21 15:08 IMPRESSION: Fractures of the distal tibia and fibula as described above with disruption of the tibiotalar joint. Electronically Signed: David Girard MD at 15:49 EDT , Chest X-Ray 10/24/21 15:27 IMPRESSION: 1. Borderline to mild cardiomegaly. 2. No active pulmonary disease. Electronically Signed: David Girard MD at 15:51 EDT , Physical Exam Narrative Physical exam General: Alert, Oriented x3, Cooperative HEENT: Atraumatic, PERRLA, EOMI, Normocephalic Oral: Oral mucosa dry. No Gingival or Mucosal Lesions/ Ulcerations Neck: Supple, No JVD, Negative Carotid Bruits Lungs: Air entry diminished in bilateral lung bases. No crepitation/rhonchi Cardiovascular: Regular rate, Regular Rhythm, Normal S1, Normal S2, No murmurs Abdomen: Bowel Sounds Present, Soft, Non Tender, Non-Distended : No renal angle tenderness. No suprapubic tenderness. Extremities: No edema, Capillary Refill Less than 3 Seconds Skin: No rashes, No breakdown Musculoskeletal: Left ankle is Marlon wrapped. Swelling and tenderness over left ankle. Bilateral knee arthritis. Osteoporosis Neurological: Cranial nerves II-XII grossly intact, DTR 2+/4 and Symmetrical, Neuro grossly intact Psych/Mental Status: Normal Affect, Appropriate. Dementia Assessment & Plan Assessment/Plan (1) Closed trimalleolar fracture of ankle: QUALIFIERS: Encounter type: initial encounter Laterality: left Qualified Code(s): S82.852A - Displaced trimalleolar fracture of left lower leg, initial encounter for closed fracture PLAN: 1. Closed left trimalleolar fracture: CT left ankle individually reviewed and shows closed, comminuted displaced fracture of medial malleolus, displaced fracture of distal fibula, small intra-articular fracture of anterior distal tibia. Disruption of tibiotalar joint. Patient is being admitted on [facility] floor. Plavix is held. Patient is moderate perioperative risk for ankle surgery. 10/25: CT left lower extremity shows the same. Twelve-lead EKG Plan for surgery tomorrow by caramel cutter machine Dr. Francisco. 2. Hypertension: Blood pressure is elevated. Started on lisinopril 5 mg daily. Monitor blood pressure and adjust antihypertensive medications accordingly. Magnesium 1.7. continue antihypertensive medication with holding parameters. 3. Diabetes mellitus type 2: Glucose in BMP is 113, seems controlled. Accu-Chek insulin is covered with Humalog sliding scale. Hold oral hypoglycemic agents. 10/25: A1c 6.9. Glucose is reasonably well controlled for her age. 4. CKD stage IV: Creatinine is 1.22, BUN 77. Estimated creatinine clearance 77 mill per hour. Monitor BMP daily. 5. History of cerebral infarct, carotid artery occlusion, depression and dementia: Patient lost his son about 6 months ago. He does not have good memory. Continue antidepression medication. 6. Other comorbidities include GERD, hypothyroidism and dyslipidemia: Home medication reconciliation done. On Dulcolax suppository as needed, continued. Continue fluoxetine VTE prophylaxis Heparin 5000 Units twice daily. Hold the night dose before surgery Charges/Coding Visit Charges Inpatient E&M: 77866 Subs Hosp L2
[2021-10-25 11:45] LABS: Bedside Glucose 278 mg/dL (74-106)
--- NOTE | 2021-10-25 12:00 | EKG12_ITS ---
Test Reason : PREOP Blood Pressure : / mmHG Vent. Rate : 060 BPM Atrial Rate : 060 BPM P-R Int : 122 ms QRS Dur : 082 ms QT Int : 416 ms P-R-T Axes : 000 038 011 degrees QTc Int : 416 ms Normal sinus rhythm Normal ECG When compared with ECG of 24-OCT-2021 15:40, MANUAL COMPARISON REQUIRED, DATA IS UNCONFIRMED Confirmed by LO FLOYD, RAUL ([id number]), continuity editor JESSIKA LINDSEY ([id number]) on 10/27/2021 1:13:56 PM Referred By: RENÉ Confirmed By:RAUL BLANCHARD MD
--- NOTE | 2021-10-25 12:20 | ART_ITS ---
Reason For Study: Decreased pedal pulses Procedure A bilateral lower extremity continuous wave Doppler with analog waveform analysis,segmental pressures,and ankle brachial indexes without exercise. Limited exam due to doctor order. Left Segmental Pressures Left brachial= 176mmHg. Left digit = 68 mmHg. The left dorsalis pedis waveforms are monophasic. The left posterior tibial artery waveforms are biphasic. Right Segmental Pressures Right digit = 118 mmHg. The right dorsalis pedis waveforms are biphasic. The right posterior tibial artery waveforms are biphasic. Indices The right digital-brachial index is 0.67. The left digital-brachial index is 0.39. VL/Lower Ext Art Exam w/o Exercis Interpretation Summary Technically limited examination. Patient not able to tolerate calf pressures an d ABIs. Right posterior tibial and dorsalis pedis Doppler waveforms consistent with bip hasic waveforms and moderately severe disease. The right digital brachial index is abnormal at 0.67 Left lower extremity posterior tibial Doppler waveform is biphasic while the do rsal pedis is more severe at monophasic. The left digital brachial index is 0.39 which is abnormal and suggested of a more severe level of occlusive disease. Ordering Physician: Pal Francisco Referring Physician: Billie De Leon Performed By: Yee Tavarez RVT
[2021-10-25 13:33] VITALS: O2SAT 93
--- NOTE | 2021-10-25 15:55 | PCM.PROGNOTE ---
Subjective Subjective This 86-year-old female was seen bedside 1 day status post left ankle fracture when getting out of bed at his assisted living facility. Patient notes that her pain is well controlled and only worsens when she moves or the site is manipulated. Patient denies any fever chills nausea vomiting chest pain calf pain shortness of breath. Patient denies any other issues overnight. Objective Data Objective Data Vital Signs: Vital Signs Temp Pulse Resp BP Pulse Ox 97.0 F L 56 L 16 106/43 L 93 10/25/21 10:08 10/25/21 10:08 10/25/21 10:08 10/25/21 10:08 10/25/21 13:33 Oxygen Delivery Method Room Air Weight: 86.6 kg Body Mass Index (BMI) 35.1 Intake & Output: Intake and Output for Last 24 Hours 10/23/21 10/24/21 10/25/21 23:59 23:59 23:59 Intake Total 1350 / 1350 Output Total 650 / 650 Balance 700 / 700 Lab / Micro Data Result Diagrams: 10/25/21 05:41 10/25/21 05:41 Labs: Laboratory Results - last 24 hr 10/24/21 14:15: Magnesium 1.7 10/24/21 20:42: POC Glucose 325 H 10/25/21 05:41: WBC 10.0, RBC 3.79 L, Hgb 10.9 L, Hct 34.7 L, MCV 91.6, MCH 28.8, MCHC 31.4 L, RDW Std Deviation 50.4 H, RDW Coeff of Suzy 15.0 H, Plt Count 227, MPV 10.6, Immature Gran % (Auto) 0.300, Neut % (Auto) 71.5 H, Lymph % (Auto) 17.5 L, [place] % (Auto) 9.4, Eos % (Auto) 0.8, Baso % (Auto) 0.5, Absolute Neuts (auto) 7.2, Absolute Lymphs (auto) 1.75, Nucleated RBC % 0 10/25/21 05:41: Sodium 137, Potassium 4.3, Chloride 104, Carbon Dioxide 28.0, Anion Gap 5, BUN 31 H, Creatinine 1.00, Estim Creat Clear Calc 31.60, Est GFR (MDRD) Af Amer 68, Est GFR (MDRD) Non-Af 56 L, BUN/Creatinine Ratio 31.1 H, Glucose 205 H, Calcium 8.7, TSH 1.17 10/25/21 05:41: Hemoglobin A1c 6.9 H 10/25/21 08:01: POC Glucose 174 H 10/25/21 11:33: POC Glucose 278 H Physical Exam Narrative Patient is alert oriented to person place and time. Patient seen in bed with intact posterior splint along with sugar-tong. This was removed to eat further evaluate patient's neurovascular status. Vascular: Dorsalis pedis, posterior tibial and perforating peroneal pulses biphasic on Doppler examination to left lower extremity. There are some trophic changes to the skin with diminished digital hair growth. Capillary fill time is brisk to lesser digits. +1 pitting edema to left lower extremity perimalleolar region, this is well controlled. Neurologic: Light touch protective sensation intact. Patient able to wiggle her digits. Dermatologic: Some increased ecchymosis to the medial and lateral ankle with associated edema. No evidence of skin tenting or impending skin breakdown. Musculoskeletal: Slight posterior lateral dislocation of left ankle. Left lower extremity strength and range of motion testing deferred due to unstable trimalleolar ankle fracture. Pain limited to ankle, but diffuse in nature. No other musculoskeletal pain at this time. Assessment & Plan Assessment/Plan (1) Closed trimalleolar fracture of ankle: QUALIFIERS: Encounter type: initial encounter Laterality: left Qualified Code(s): S82.852A - Displaced trimalleolar fracture of left lower leg, initial encounter for closed fracture PLAN: Patient examined evaluated, all findings discussed patient detail. Radiographs demonstrate a unstable pronation abduction type ankle fracture to left lower extremity with moderate displacement. CT scan to left lower extremity ordered. Demonstrates displaced trimalleolar ankle fracture with large posterior malleolus fragment. In order to regain function and restore ambulation this patient will require open reduction internal fixation. Skin appears to be intact, edema is well managed, there is mild concerns of for some peripheral arterial disease as patient has history of stroke possible coronary artery disease uncertain. Upon repeat neurovascular exam today. Pulses remain intact we will plan for surgery tomorrow. The procedure, inherent risks, benefits alternative treatments discussed with patient in detail. Due to patient's advanced age and severity of the fracture operative management is required to restore function and prevent any functional decline of the patient due to prolonged nonweightbearing. Patient will be admitted due to unstable gait issue will likely require recovery in the correction facility. Clopidogrel placed on hold until postprocedure. Patient remain nonweightbearing in her posterior splint until time of operative management. Recommend physical therapy consultation. Recommend case management consultation. Patient receiving oxycodone and morphine as needed for pain control. Patient comfortable at this time no evidence of compartment syndrome or intractable pain. Will continue to follow the patient closely. Surgical management planned for Tuesday of this week. Time is to be determined.
[2021-10-25 16:11] LABS: Bedside Glucose 160 mg/dL (74-106)
[2021-10-25 17:32] VITALS: BP 139/50; PULSE 57; RESP 16; TEMP 37; O2SAT 96
[2021-10-25 20:29] VITALS: BP 162/60; PULSE 65; RESP 16; TEMP 37.3; O2SAT 94
[2021-10-25] MEDS: Atorvastatin Calcium 20 MG Tablet PO (21:27)
--- NOTE | 2021-10-25 21:47 | NURSING ---
pt has hx of dementia and ask the date and year, she was right with the year but states it may, reoriented pt. asked if she knows Seble Smith which is listed as her emergency contact. pt states she is not friends with Seble and haven't seen and spoke to her since she went in the [facility] home and took all her money in her checking account. pt states it was $1200. asked pt if she knows the Dr. who will do Sx on her tomorrow states she forgot his name but understood what kind of sx she will have. RN concern if pt is able to sign consent for sx. pt states she does not have family or other friends.
[2021-10-25 21:51] LABS: Bedside Glucose 224 mg/dL (74-106)
[2021-10-25] MEDS: 0.9% Saline Lock 10 ML Syringe IV (23:42)
[2021-10-25] MEDS: 0.9% Normal Saline 1,000 ML 100 ML IV (23:42)
[2021-10-26] VITALS (11 sets, daily range): BP systolic 136–174; BP diastolic 44–84; PULSE 56–94; RESP 16–18; TEMP 36.5–37.1; O2SAT 84–100; BMI 35.1
[2021-10-26 06:35] LABS: Bedside Glucose 147 mg/dL (74-106)
--- NOTE | 2021-10-26 08:26 | PCM.PN.HOSP ---
Subjective Subjective Pain fairly well controlled. Objective Data Objective Data Vital Signs: Vital Signs Temp Pulse Resp BP Pulse Ox 36.9 C 59 L 18 143/64 H 91 10/26/21 08:12 10/26/21 08:12 10/26/21 08:12 10/26/21 08:12 10/26/21 08:12 Oxygen Delivery Method Room Air Weight: 86.5 kg Body Mass Index (BMI) 35.1 Intake & Output: Intake and Output for Last 24 Hours 10/24/21 10/25/21 10/26/21 23:59 23:59 23:59 Intake Total 1350 / 1350 Output Total 2049 1150 / 1150 Balance -700 / -700 -1150 / -1150 Lab / Micro Data Result Diagrams: 10/25/21 05:41 10/25/21 05:41 Labs: Laboratory Results - last 24 hr 10/25/21 05:41: Hemoglobin A1c 6.9 H 10/25/21 08:01: POC Glucose 174 H 10/25/21 11:33: POC Glucose 278 H 10/25/21 16:02: POC Glucose 160 H 10/25/21 21:23: POC Glucose 224 H 10/26/21 06:32: POC Glucose 147 H Physical Exam Const alert and no apparent distress Resp normal respiratory effort, no retractions, no use of accessory muscles and clear to auscultation bilaterally Cardio regular rate, regular rhythm, S1 normal heart sound and S2 normal heart sound GI normal to inspection, nondistended, normoactive bowel sounds, soft to palpation, non-tender and non-distended Extremity normal to inspection Assessment & Plan Assessment/Plan (1) Closed trimalleolar fracture of ankle: QUALIFIERS: Encounter type: initial encounter Laterality: left Qualified Code(s): S82.852A - Displaced trimalleolar fracture of left lower leg, initial encounter for closed fracture PLAN: 1. Closed left trimalleolar fracture: CT left ankle individually reviewed and shows closed, comminuted displaced fracture of medial malleolus, displaced fracture of distal fibula, small intra-articular fracture of anterior distal tibia. Disruption of tibiotalar joint. Patient is being admitted on [facility] floor. Plavix is held. Patient is moderate perioperative risk for ankle surgery. 10/25: CT left lower extremity shows the same. Twelve-lead EKG Plan for surgery tomorrow by sandblaster paint sprayer Dr. Francisco. 2. Hypertension: Blood pressure is elevated. Started on lisinopril 5 mg daily. Monitor blood pressure and adjust antihypertensive medications accordingly. continue antihypertensive medication with holding parameters. 3. Diabetes mellitus type 2: Glucose in BMP is 113, seems controlled. Accu-Chek insulin is covered with Humalog sliding scale. Hold oral hypoglycemic agents. 10/25: A1c 6.9. Glucose is reasonably well controlled for her age. 10/26: Give 1/2 dose of glargine this AM (8 units) since NPO for surgery. 4. CKD stage IV: stable 5. History of cerebral infarct, carotid artery occlusion, depression and dementia: Patient lost his son about 6 months ago. He does not have good memory. Continue antidepression medication. 6. Other comorbidities include GERD, hypothyroidism and dyslipidemia: Home medication reconciliation done. On Dulcolax suppository as needed, continued. Continue fluoxetine 7. VTE prophylaxis Heparin 5000 Units twice daily. Hold the night dose before surgery Charges/Coding Visit Charges Inpatient E&M: 72722 Subs Hosp L2
[2021-10-26] MEDS: Morphine 2 MG/ML Syringe IV (08:28)
[2021-10-26] MEDS: 0.9% Saline Lock 10 ML Syringe IV (08:30)
--- NOTE | 2021-10-26 08:40 | NURSING ---
in to see pt, inquired as to if pt has POA or guardian, pt states i did until about 3 days ago then i revoked it. It was Ramila, but not anymore. pt A&O x3. Consent obtained.
--- NOTE | 2021-10-26 08:51 | NURSING ---
Yee Valdez CM updated of pt above comments regarding POA
[2021-10-26] MEDS: 0.9% Normal Saline 1,000 ML 100 ML IV ×2 (09:43→15:00)
--- NOTE | 2021-10-26 09:58 | CASEMGMT ---
Social Work Note SW placed a call to Preston at [facility] and left message updating him on pt's admission to [facility]. SW also asked if they had HCPOA/LW documents on file for pt. SW waiting for call back. SW in to speak with pt. Pt is alert and orientated x3. Pt knew she was at the Hospital but couldn't tell this worker the name of the Hospital. SW asked pt about HCPOA/LW. Pt states she has none. Pt states she has never had any HCPOA/LW, states not that she knows of. SW asked pt about a Seble Luis listed on demographics. Pt states she is someone that she wants to not be on her contact list. Pt states that about 6 months ago, she stole everything out of banking account. SW asked pt if she filed a police report and pt states she didn't. SW asked pt if she has had any contact with Seble and pt states she can't get a hold of her. SW asked pt who she would want to be her HCPOA if she cannot make her own decisions and pt states I don't know, I will have to think about that. SW encouraged pt to think about it and this worker will follow up with her after surgery. Pt states understanding. SW also began the conversation of SNF placement as pt will likely need SNF. Patient was provided a list of SNF providers including quality and resource use data and consistent with the patient?s preferred geographic region, medical needs, and insurance network. SW informed pt that this worker will follow up with her after surgery to see how she is doing. Pt states understanding. Plan: TBD. Yee Ceja SUPERSONIC ENGINEER, SURVEYOR
--- NOTE | 2021-10-26 10:34 | NURSING ---
Nurse Diane from [facility] phoned in- states no information on POA/Medical POA for pt and that person named Seble listed on ECF paperwork is only a neighbor who brought pt to ECF facility but not a electronic engineering draftsperson as there is some legal matters between with Seble and pt/pt finances and should not be contacted regarding any of patients information. Yee myers. in to talk with pt and pt states she does NOT want any information given to Seble at all and wants her removed from her demographics. Registration informed of pt request, no contact/next of kin information is listed on demographic sheet.
--- NOTE | 2021-10-26 10:50 | CASEMGMT ---
Addendum entered by Yee Ceja 10/26/21 11:43: FATOU spoke with Raymond DICKENS. If this worker receives HCPOA documents, then pt can write a letter/statement revoking the HCPOA. FATOU placed a call to Preston at [facility]. Preston states he does have POA documents and can fax them to this worker. FATOU informed Preston that pt can write a letter revoking the HCPOA. Original Note: Social Work Note FATOU received call back from Preston at [facility]. Preston states that pt does have POA and it is Seble Luis but Preston states pt gave Seble POA as pt's son and pt had no one else. Preston states he and pt went to the bank the other day and revoked Seble as having access to pt's financial. Preston states that Seble is not involved, [facility] has reached out at least 20 times) and Seble doesn't return phone call and the voicemail is full. Preston states again that pt revoked Seble as POA for the bank and Preston is reaching out to his cooperate office to determine legally how pt can revoke Seble. FATOU updated Preston that pt is going for surgery today and this worker already spoke to pt about likely need SNF at discharge. Preston states if pt wants to go to [facility] pt can. Plan: TBD Yee Ceja CAPPER MACHINE OPERATOR, PHONE BANKER
[2021-10-26 11:36] LABS: Bedside Glucose 151 mg/dL (74-106)
[2021-10-26] MEDS: Insulin Glargine-YFGN 100 UNIT/ML Pen 8 UNIT SC (12:44)
--- NOTE | 2021-10-26 12:47 | CHAPLAIN ---
Type of Pastoral Visit _x__ Initial Visit ___ Follow-up Visit ___ On-call Visit ___ General Patient Visit ___ Spiritual Assessment ___ Family Conference ___ Bereavement ___ Rapid Response ___ Code Blue ___ Other (describe below) Pastoral Care Referral From _x__ Patient ___ Family ___ Nurse ___ Physician ___ Band Sawing Machine Operator ___ Pulley Maintainer ___ Other (describe below) Sacrament/Intervention _x__ Active listening ___ Anointing ___ Taoist ___ Bereavement ___ Communion ___ Monae exploration ___ _x__ Life review _x__ Prayer ___ Reconciliation ___ Sacrament of Sick _x__ Supportive presence ___ Wedding ___ Other (describe below) Pastoral Comments patient to have surgery soon; pt speaks of of her only son just six months ago; pt does not have family support and will rely on strangers for her care; pt concerned about her future; pt welcomes prayer and presence of this global climate change analyst for support today
[2021-10-26] MEDS: Cefazolin 2 GM in 0.9% Normal Saline 100 ML IV (14:20)
--- NOTE | 2021-10-26 14:23 | CASEMGMT ---
Social Work Note SW received documents from Preston at [facility]. However, the documents state that this document does not authorize anyone to make medical and other healthcare decisions for you. Yee Ceja GARMENT FITTER, TECHNICAL SUPPORT MANAGER
--- NOTE | 2021-10-26 14:35 | RAD_ITS ---
CLINICAL HISTORY: ORIF Date: 10/26/2021 2:39 PM Date of : 1935 Images assigned to this order were provided in conjunction with a surgical procedure performed in the operating room/procedural suite. Please see operative report for details. Fluoroscopic images: 17 Fluoroscopic time: 159.5 seconds Cumulative dose: NA, mGym2; 4.56; mGy Postoperative changes of ORIF of the LEFT ankle with lateral plate and screw fixation cannulated screws at the level of the medial malleolus. Refer to procedural note for complete description. Impressions: 1. Fluoroscopic guidance for surgical planning and confirmation Electronically Signed: Carlos Lee MD at 1:29 EDT , RAD/Ankle 2 Views IMPRESSION: undefined
[2021-10-26] MEDS: BACITRACIN/POLYMYXIN B 15 GM Tube 1 APPLIC (16:51)
--- NOTE | 2021-10-26 17:18 | OP.PCM_ITS ---
Problems Associated Problem List Diagnoses (1) Closed trimalleolar fracture of ankle: Report of Operation Date of Procedure: 10/26/21 Pre-Operative Diagnosis: closed trimalleolar ankle fracture, left - displaced Post-Operative Diagnosis: Same Surgery/Procedure Performed:: Open Reduction w/ Internal Fixation Left Trimalleolar ankle fracture Description of Surgical Findings:: Patient suffered trimalleolar ankle fracture on Tuesday10/24/21. PAtient seen in ED. CT/Radiographs confirm displaced fracture. Plan for ORIF to restore funcitn and promote early weightbearing in this [facility] patient made and discussed with patient, patient agreed. Swelling preoperatively well controlled. No skin breakdown. Neurovascular status intact. Patient brought back into operating room and placed comofortably in the supine position with all osseous prominences offloaded to prevent compression neuropraxia. PAtient received a preoperative popliteal block in PACU prior to procedure. PAtient induced under general anesthesia. Well padded left thight tourniquet applied to left lower extremity. Left lower extremity bumped to knock out any external rotation. Left lower extremity scrubbed, prepped and draped using aseptic technique. Once cleared by anesthesia, left lower extremity was elevated and tourniquet was inflated to 275mmHG. TQ was let down prior to incisional closure and was noted to be 77 minutes. The distal fibula was palpated and marked out. A linear incsion was drawn directly over the distal fibula and made from the tip of the fibula down to the level of bone from distal to proximal. All bleeders cauterized, important neurovascular structures protected with blunt retraction. The periosteum was dissected of the fibula, the fracture was identified and cleaned out using a curette. Reduction was performed using lobster clamp with manipulation of foot. Reduction confirm on AP/MORTISE/LATERAL fluoroscopy. Interfragmentary screw unable to be placed due to diminished bone density. An anatomic distal fibular plate was selected (8-hole) and applied to distal fibula, placement confirmed fluoroscopically on multiple planes. Distal fibular locking screws placed x4 using manufacturers guidelines. 3 non-locking 3.0 cortical screws placed to allow conformatio of the plate to distal fibula. An additional 3-[address] along the proximal aspect of the plate. An interfragmentatary cortical screws was placed from the distal portion of the plate across the fracture site acting as an interfragmentary screw. Attention was taken to the medial malleolus which was reduced using a guide pin, ankle manipulation and fluoroscopic imaging, it was pinned in placed, reduction confirmed on multiple views. Attention taken back laterally where the distal fibular syndesmosis was stressed and a tight rope was placed. Upon additional stressing of syndesmosis, it was noted to be stable post tight rope application. Final radiographs taken (AP/MORTISE/LAT), hardware noted to be intact, reduction noted and confirmed. Tourniquet let down, incisional sites flushed. Deep fascia closed laterally with 2-0 vicryl buried interupted. Subcutaneous with 2-0 vicryl buried interupted. Skin closure with hansa performed. foot cleansed and dressed with bacitracin, adaptec, 4x4s, kerlix and well padded posterior splint. Patient tolerated procedure and anesthesia well in apparent satisfactory conditon. PAtient transported to pacu with vital signs stable and vascular status intact to all digits for further monitoring prior to D/C. PAtient well b e transported back to floor. Patient will require SNF for recovery. healthy bleeding noted to incisional sites suggestive of good healing potential. Adequate reduction of fracture noted clinically and radiographically. no complications Posterior malleolus not fixed due to adequate reduction and small size along with stabilized tibiofibular syndesmosis. Surgeon: Pal Francisco machine rough rounder: None (Dalila Ramirez DPM PGYIII) Type of Anesthesia: General Special Medications: popliteal block Specimen's removed: none Drains: none Estimated Blood Loss (mL): <20cc Grafts/Implants Used: 1 anatomic distal fibular plate w/ tight rope and two 4-0 screws medially Complications none Admit VTE Documentation VTE Present on Admission: Yes VTE Mechan Device Prophylaxis: SCD's VTE Pharm Prophylaxis ordered?: Yes
[2021-10-26 17:31] LABS: Bedside Glucose 153 mg/dL (74-106)
[2021-10-26] MEDS: Insulin Lispro 100 UNIT/ML INSULN.PEN SC (21:29)
[2021-10-26] MEDS: Heparin Injection (Vial) 5,000 UNIT/ML VIAL 5000 UNIT SC (21:29)
[2021-10-26] MEDS: Atorvastatin Calcium 20 MG Tablet PO (21:30)
[2021-10-26 21:41] LABS: Bedside Glucose 183 mg/dL (74-106)
[2021-10-27] VITALS (11 sets, daily range): BP systolic 138–209; BP diastolic 61–110; PULSE 73–105; RESP 16–20; TEMP 36.8–37.9; O2SAT 79–98
[2021-10-27] MEDS: 0.9% Normal Saline 1,000 ML 100 ML IV ×3 (01:04→19:26)
[2021-10-27] MEDS: oxyCODONE 5 MG Tablet 10 MG PO ×2 (06:44→13:01)
[2021-10-27] MEDS: Levothyroxine 88 MCG Tablet PO (06:45)
[2021-10-27] MEDS: Insulin Lispro 100 UNIT/ML INSULN.PEN SC ×4 (06:45→22:37)
[2021-10-27 06:56] LABS: Bedside Glucose 230 mg/dL (74-106)
--- NOTE | 2021-10-27 07:10 | PN.HOSP_ITS ---
Subjective Subjective Upset with staff because her ankle was very painful when she was moved, before surgery. Since surgery, feeling much better. Objective Data Objective Data Vital Signs: Vital Signs Temp Pulse Resp BP Pulse Ox 37.2 C 74 18 148/84 H 98 10/27/21 06:31 10/27/21 06:31 10/27/21 06:31 10/27/21 06:31 10/27/21 06:31 Oxygen Flow Rate (L/min) 2 Oxygen Delivery Method Nasal Cannula Weight: 84.8 kg Body Mass Index (BMI) 35.1 Intake & Output: Intake and Output for Last 24 Hours 10/25/21 10/26/21 10/27/21 23:59 23:59 23:59 Intake Total 1350 / 1350 2110 / 2110 1000 / 1000 Output Total 2050 / 0 2350 / 2600 1050 / 1050 Balance -700 / -700 -240 / -490 -50 / -50 Lab / Micro Data Result Diagrams: 10/25/21 05:41 10/25/21 05:41 Labs: Laboratory Results - last 24 hr 10/26/21 11:30: POC Glucose 151 H 10/26/21 17:26: POC Glucose 153 H 10/26/21 21:27: POC Glucose 183 H 10/27/21 06:43: POC Glucose 230 H Radiography Diagnostic Testing: Radiology Impression Extremity Arterial Study 10/25/21 12:20 Interpretation Summary Technically limited examination. Patient not able to tolerate calf pressures and ABIs. Right posterior tibial and dorsalis pedis Doppler waveforms consistent with biphasic waveforms and moderately severe disease. The right digital brachial index is abnormal at 0.67 Left lower extremity posterior tibial Doppler waveform is biphasic while the d orsal pedis is more severe at monophasic. The left digital brachial index is 0.39 which is abnormal and suggested of a more severe level of occlusive disease. Ordering Physician: Pal Francisco Referring Physician: Billie De Leon Performed By: Yee Tvaarez RVT Ankle X-Ray 10/26/21 14:35 IMPRESSION: undefined Physical Exam Const alert and no apparent distress Cardio regular rate, regular rhythm, S1 normal heart sound and S2 normal heart sound GI normal to inspection, nondistended, normoactive bowel sounds, soft to palpation, non-tender and non-distended Extremity Extremity Narrative: left foot and ankle in cast. Assessment & Plan Assessment/Plan (1) Closed trimalleolar fracture of ankle: QUALIFIERS: Encounter type: initial encounter Laterality: left Qualified Code(s): S82.852A - Displaced trimalleolar fracture of left lower leg, initial encounter for closed fracture PLAN: 1. Closed left trimalleolar fracture: * CT left ankle individually reviewed and shows closed, comminuted displaced fracture of medial malleolus, displaced fracture of distal fibula, small intra-articular fracture of anterior distal tibia. Disruption of tibiotalar joint. [facility]. Plavix is held. Patient is moderate perioperative risk for ankle surgery. * 10/25: CT left lower extremity shows the same. Twelve-lead EKG Plan for surgery tomorrow by sales development manager Dr. Francisco. * 10/26: ORIF 2. Hypertension: * Blood pressure is elevated. * Started on lisinopril 5 mg daily. Monitor blood pressure and adjust antihypertensive medications accordingly. continue antihypertensive medication with holding parameters. 3. Diabetes mellitus type 2: * Glucose in BMP is 113, seems controlled. * Accu-Chek insulin is covered with Humalog sliding scale. * Hold oral hypoglycemic agents. * 6/: A1c 6.9. Glucose is reasonably well controlled for her age. * 10/26: Give 1/2 dose of glargine this AM (8 units) since NPO for surgery. 4. CKD stage IV: * stable 5. History of cerebral infarct, carotid artery occlusion, depression and de mentia: Patient lost his son about 6 months ago. He does not have good memory. Continue antidepression medication. 6. Other comorbidities include GERD, hypothyroidism and dyslipidemia: Home medication reconciliation done. On Dulcolax suppository as needed, continued. Continue fluoxetine 7. VTE prophylaxis Heparin 5000 Units twice daily. 8. Disposition: eventually to SNF Charges/Coding Visit Charges Inpatient E&M: 65597 Subs Hosp L2
[2021-10-27] MEDS: FLUoxetine 20 MG Capsule PO (08:23)
[2021-10-27] MEDS: Insulin Glargine-YFGN 100 UNIT/ML Pen 16 UNIT SC (08:23)
[2021-10-27] MEDS: Pantoprazole Sodium 40 MG Tablet PO (08:23)
[2021-10-27] MEDS: Heparin Injection (Vial) 5,000 UNIT/ML VIAL 5000 UNIT SC ×2 (09:58→22:41)
[2021-10-27] MEDS: Lisinopril 5 MG Tablet PO (09:58)
[2021-10-27 11:55] LABS: Bedside Glucose 276 mg/dL (74-106)
--- NOTE | 2021-10-27 12:14 | PN_ITS ---
Subjective Subjective This 86-year-old female was seen bedside 1 day postop from left trimalleolar ankle fracture. Patient notes pain is well controlled at this time. Patient denies any chest pain calf pain shortness of breath. Patient denies any constitutional symptoms. Patient has been voiding urine and passing gas since surgery. No other complaints at this time. Objective Data Objective Data Vital Signs: Vital Signs Temp Pulse Resp BP Pulse Ox 99.1 F 101 H 18 202/82 H 93 10/27/21 09:55 10/27/21 12:02 10/27/21 09:55 10/27/21 12:02 10/27/21 09:55 Oxygen Flow Rate (L/min) 2 Oxygen Delivery Method Room Air Weight: 84.8 kg Body Mass Index (BMI) 35.1 Intake & Output: Intake and Output for Last 24 Hours 10/25/21 10/26/21 10/27/21 23:59 23:59 23:59 Intake Total 1350 / 1350 2110 / 2110 1891.67 / 1891.67 Output Total 0 / 0 2350 / 2600 1050 / 1050 Balance -700 / -700 -240 / -490 841.67 / 841.67 Lab / Micro Data Result Diagrams: 10/25/21 05:41 10/25/21 05:41 Labs: Laboratory Results - last 24 hr 10/26/21 17:26: POC Glucose 153 H 10/26/21 21:27: POC Glucose 183 H 10/27/21 06:43: POC Glucose 230 H 10/27/21 11:42: POC Glucose 276 H Radiography Diagnostic Testing: Radiology Impression Extremity Arterial Study 10/25/21 12:20 Interpretation Summary Technically limited examination. Patient not able to tolerate calf pressures and ABIs. Right posterior tibial and dorsalis pedis Doppler waveforms consistent with biphasic waveforms and moderately severe disease. The right digital brachial index is abnormal at 0.67 Left lower extremity posterior tibial Doppler waveform is biphasic while the dorsal pedis is more severe at monophasic. The left digital brachial index is 0.39 which is abnormal and suggested of a more severe level of occlusive disease. Ordering Physician: Pal Francisco Referring Physician: Billie De Leon Performed By: Yee Tavarez RVT Ankle X-Ray 10/26/21 14:35 IMPRESSION: undefined Physical Exam Narrative Posterior splint left intact to left lower extremity. Actively move her digits on the left lower extremity. Apply fill time is brisk to all digits 1 through 5. Patient able to feel me touch digits 1 through 5. No pain with calf squeeze or palpation of popliteal fossa. Const alert and oriented x3 Assessment & Plan Assessment/Plan (1) Closed trimalleolar fracture of ankle: QUALIFIERS: Encounter type: initial encounter Laterality: left Qualified Code(s): S82.852A - Displaced trimalleolar fracture of left lower leg, initial encounter for closed fracture PLAN: Patient examined and evaluated, all findings cussed with patient in detail. Patient tolerated procedure well yesterday. Recommend recovery in SNF due to nonweightbearing. Patient will remain nonweightbearing posterior splint until follow-up in 1 to 2 weeks at which time we will likely remove hansa and transition her into a Cam walking boot with a walker to expedite functional recovery. Will require DVT prophylaxis but is already taking clopidogrel which may suffice. Will DC once nursing facility has been coordinated.
[2021-10-27] MEDS: amLODIPine 5 MG Tablet PO (13:02)
--- NOTE | 2021-10-27 13:34 | CASEMGMT ---
Social Work Note SW updated that pt will need SNF at discharge. SW in to speak with pt. SW reviewed SNF options with pt. Pt agreeable to [facility]. SW informed pt that this worker will make the referral. FATOU placed a call to Raysa with TCU who will review referral. Plan: SNF pending acceptance and pre-cert Yee Ceja THERMAL CUTTER HAND, DIESEL POWER MECHANIC
[2021-10-27 16:41] LABS: Bedside Glucose 232 mg/dL (74-106)
--- NOTE | 2021-10-27 16:55 | CASEMGMT ---
Addendum entered by Yee Ceja 10/27/21 17:17: Preston at [facility] is aware pt wants TCU and is pending approval. Original Note: Social Work Note FATOU received call from Raysa with TCU stating TCU is able to accept pt and pre-cert will be submitted once PT/OT notes are in from today. FATOU placed a call to Preston at [facility] and updated him that the POA that he faxed to this worker was not the HCPOA so this worker is not able to have pt revoke the POA and that Preston will need to go through is cooperate to see legally how pt can revoke the POA. FATOU updated Preston that pt did have surgery yesterday and pt is going to TCU pending pre-cert. Preston states understanding. Plan: TCU pending pre-cert Yee Ceja SOCIAL SERVICE TECHNICIAN, COSMETOLOGY TEACHER
[2021-10-27] MEDS: Acetaminophen 325 MG Tablet 650 MG PO (18:10)
[2021-10-27] MEDS: hydrALAZINE 20 MG/ML Vial 10 MG IV (20:01)
[2021-10-27] MEDS: Atorvastatin Calcium 20 MG Tablet PO (22:39)
[2021-10-27 22:51] LABS: Bedside Glucose 279 mg/dL (74-106)
[2021-10-28 03:24] VITALS: BP 163/74; PULSE 98; RESP 18; TEMP 36.9; O2SAT 95
[2021-10-28] MEDS: 0.9% Normal Saline 1,000 ML 100 ML IV (05:34)
[2021-10-28] MEDS: Levothyroxine 88 MCG Tablet PO (05:34)
[2021-10-28] MEDS: Insulin Lispro 100 UNIT/ML INSULN.PEN SC ×2 (06:23→11:14)
[2021-10-28 06:30] LABS: Bedside Glucose 207 mg/dL (74-106)
--- NOTE | 2021-10-28 07:42 | PN.HOSP_ITS ---
Subjective Subjective Still with ankle pain. Objective Data Objective Data Vital Signs: Vital Signs Temp Pulse Resp BP Pulse Ox 36.9 C 98 18 163/74 H 95 10/28/21 03:24 10/28/21 03:24 10/28/21 03:24 10/28/21 03:24 10/28/21 03:24 Oxygen Flow Rate (L/min) 3 Oxygen Delivery Method Nasal Cannula Weight: 89.4 kg Body Mass Index (BMI) 35.1 Intake & Output: Intake and Output for Last 24 Hours 10/26/21 10/27/21 10/28/21 23:59 23:59 23:59 Intake Total 2110 / 2110 3236.67 / 3236.67 1000 / 1000 Output Total 2350 / 2600 2950 / 2950 600 / 600 Balance -240 / -490 286.67 / 286.67 400 / 400 Lab / Micro Data Result Diagrams: 10/25/21 05:41 10/25/21 05:41 Labs: Laboratory Results - last 24 hr 10/27/21 11:42: POC Glucose 276 H 10/27/21 16:34: POC Glucose 232 H 10/27/21 22:36: POC Glucose 279 H 10/28/21 06:21: POC Glucose 207 H Physical Exam Const alert and no apparent distress Resp normal respiratory effort, no retractions, no use of accessory muscles and clear to auscultation bilaterally Cardio regular rate, regular rhythm, S1 normal heart sound and S2 normal heart sound GI normal to inspection, nondistended, normoactive bowel sounds, soft to palpation, non-tender and non-distended Extremity Extremity Narrative: left ankle casted. moves digit on LLE. Assessment & Plan Assessment/Plan (1) Closed trimalleolar fracture of ankle: QUALIFIERS: Encounter type: initial encounter Laterality: left Qualified Code(s): S82.852A - Displaced trimalleolar fracture of left lower leg, initial encounter for closed fracture PLAN: 1. Closed left trimalleolar fracture: * CT left ankle individually reviewed and shows closed, comminuted displaced fracture of medial malleolus, displaced fracture of distal fibula, small intra-articular fracture of anterior distal tibia. Disruption of tibiotalar joint. Patient is being admitted on [facility] floor. Plavix is held. Patient is moderate perioperative risk for ankle surgery. * 10/25: CT left lower extremity shows the same. Twelve-lead EKG Plan for surgery tomorrow by quarry supervisor Dr. Francisco. * 10/26: ORIF 2. Hypertension: * Blood pressure is elevated. * Improved * Lisinopril 5 and amlodipine 5. 3. Diabetes mellitus type 2: * Glucose in BMP is 113, seems controlled. * Accu-Chek insulin is covered with Humalog sliding scale. * Hold oral hypoglycemic agents. * 10/25: A1c 6.9. Glucose is reasonably well controlled for her age. * 10/26: Give 1/2 dose of glargine this AM (8 units) since NPO for surgery. 4. CKD stage IV: * stable 5. History of cerebral infarct, carotid artery occlusion, depression and dementia: Patient lost his son about 6 months ago. He does not have good memory. Continue antidepression medication. 6. Other comorbidities include GERD, hypothyroidism and dyslipidemia: Home medication reconciliation done. On Dulcolax suppository as needed, continued. Continue fluoxetine 7. VTE prophylaxis Heparin 5000 Units twice daily. 8. Disposition: to TCU
[2021-10-28 07:56] VITALS: BP 170/56; PULSE 94; RESP 18; TEMP 37.3; O2SAT 96
--- NOTE | 2021-10-28 07:56 | NURSING ---
BP noted, scheduled home BP meds given early.
[2021-10-28] MEDS: Lisinopril 5 MG Tablet PO (08:06)
[2021-10-28] MEDS: Heparin Injection (Vial) 5,000 UNIT/ML VIAL 5000 UNIT SC (08:06)
[2021-10-28] MEDS: Ferrous Sulfate 325 MG Tablet PO (08:06)
[2021-10-28] MEDS: Senna/Docusate Sodium 1 Tablet 2 TABLET PO (08:06)
[2021-10-28] MEDS: amLODIPine 5 MG Tablet PO (08:06)
[2021-10-28] MEDS: Insulin Glargine-YFGN 100 UNIT/ML Pen 16 UNIT SC (08:07)
[2021-10-28 08:29] VITALS: O2SAT 2
--- NOTE | 2021-10-28 08:30 | CASEMGMT ---
Social Work Telephone call from Jessica, Raysa. Patient has been accepted to TCU and is able to admit today. This social media strategist updated medical team on above. Medical team confirms that patient is medically cleared for discharge. Met with patient in room. This social media strategist updated patient on above information. Patient agreeable to plan for patient to discharge to TCU with plan for patient to return to [facility] after strengthening. This social media strategist inquired who this social media strategist should contact in regards to patient discharge plan. Patient request for foundation coordinatorPreston to be contacted. Patient declines for this social media strategist to call any family members. Telephone call to Preston Gant. This social media strategist updated Preston on patient discharge plan and goal to return to [facility]. Telephone call to U, THUAN Duran, SPEEDER HAND. This social media strategist provided handoff of patient goal for discharge. PLAN: TCU, nicole LAROSE, RUN BOAT OPERATOR-S
[2021-10-28 08:57] VITALS: O2SAT 95
--- NOTE | 2021-10-28 09:31 | TREXTCAR_ITS ---
Diet 10/26/21 17:13 Diet: Carbohydrate Controlled Dietary Modifications:: Cardiac / Heart Healthy Is pt able to select menu?: Yes Diet Comments: add yadi with meals Routine Orders/Code Status Code Status: DNRCC-A (no intubation) Wound(s) L FOOT: Wound Type: Surgical Incision Therapies Weight Bearing: Non weight bearing Extremity Affected:: Right Lower Physical Therapy: Eval and Treat Occupational Therapy: Eval and Treat Problem/Diagnosis (1) Closed trimalleolar fracture of ankle: Status: Acute Allergies/Procedures Done in Hospital Allergies banana Allergy (Verified 10/24/21 13:31) Hives peanut butter Allergy (Uncoded 10/24/21 13:31) Hives Type of Care/Length of Stay Estimated LOS: Convalescent Care Less Than 30 days Type of Care Needed: Skilled Rehab Potential: Fair Prognosis: Good Additional Orders/Day of Discharge Day of Discharge: 10/28/21 Dietary and Speech Recommendations Dietitian Recommendations/Changes: Will change diet to 1800 daly Consistent CHO / Cardiac diet Discharge Plan Admission Admit Date/Time: 10/24/21 15:17 Primary Reason for Your Visit: left ankle fracture Attending Provider: Jeremy Aldrich Primary Care Provider: Billie De Leon Consulting Providers: Sulaiman Early ; Pal Francisco Discharge Orders/Prescriptions Prescriptions: New amlodipine 5 mg Tablet 5 mg PO DAILY Qty: 0 RF: 0 insulin lispro [Humalog KwikPen Insulin] 100 unit/mL Insulin Pen See Protocol unit subcut ACHS Qty: 0 RF: 0 lisinopril 5 mg Tablet 5 mg PO DAILY Qty: 0 RF: 0 oxycodone 5 mg Tablet 5 mg PO Q4H PRN PRN (Reason: pain (scale score 7-10)) 3 Days Qty: 12 RF: 0 acetaminophen [Tylenol] 325 mg Tablet 650 mg PO Q6H PRN PRN (Reason: Pain Score 1-10/Temp > 100.7 F) Qty: 0 RF: 0 enoxaparin 40 mg/0.4 mL syringe 40 mg subcut DAILY Qty: 4 RF: 0 Continued meclizine 25 mg tablet 25 mg PO TID PRN (Reason: dizziness) Qty: 20 RF: 0 ondansetron 4 mg tablet,disintegrating 4 mg PO Q8H PRN (Reason: nausea and vomiting) 3 Days RF: 0 clopidogrel 75 mg tablet 75 mg PO DAILY RF: 0 glipizide 5 mg tablet 2.5 mg PO DAILY RF: 0 atorvastatin 20 mg Tablet 20 mg PO QHS RF: 0 metoclopramide HCl [Reglan] 5 mg Tablet 5 mg PO BID RF: 0 magnesium hydroxide [Milk of Magnesia] 400 mg/5 mL Suspension 30 ml PO DAILY PRN (Reason: Constipation) RF: 0 bisacodyl 10 mg Suppository 10 mg [place] DAILY PRN (Reason: Constipation) RF: 0 pantoprazole 40 mg Tablet,Delayed Release (Dr/Ec) 40 mg PO DAILY RF: 0 ferrous sulfate 325 mg (65 mg iron) Tablet 325 mg PO BID RF: 0 metformin 1,000 mg Tablet 1,000 mg PO BID RF: 0 pioglitazone 30 mg Tablet 30 mg PO DAILY RF: 0 fluoxetine 20 mg Capsule 20 mg PO DAILY RF: 0 insulin glargine 100 unit/mL Cartridge 16 unit SUBCUT BREAKFAST RF: 0 levothyroxine 88 mcg Capsule 88 mcg PO DAILY RF: 0 Referrals / Follow Up: Pal Francisco DPM [STAFF PHYSICIAN] - Within 2 Weeks Billie De Leon MD [Primary Care Provider] - Within 1 Month Disposition Disposition (needs filled in before D/C Order can be placed): Group Home Facility
--- NOTE | 2021-10-28 09:39 | DS.PCM_ITS ---
Providers Date of Admission: 10/24/21 Primary Care Physician: Dr. Billie De Leon MD Consultations 10/24/21 16:47 Consult: Podiatry Routine Consulting Provider: Pal Francisco Reason for Consult: LEFT ANKLE FRACTURE EMERGENT Consult: No MD Notified: Yes Date Notified: 10/24/21 Time Notified: 16:47 Method of Notification: ED Physician Initiated Reason For Visit: LEFT FOOT ANKLE INJURY, TRIMALLOLAR FRACTURE Diagnosis Discharge Diagnosis (1) Closed trimalleolar fracture of ankle: Status: Acute Code(s): S82.853A - Displaced trimalleolar fracture of unspecified lower leg, initial encounter for closed fracture Qualifiers: Encounter type: initial encounter Laterality: left Qualified Code(s): S82.852A - Displaced trimalleolar fracture of left lower leg, initial encounter for closed fracture Medications at Discharge Home Medications clopidogrel 75 mg PO DAILY 08/22/21 glipizide 2.5 mg PO DAILY 08/22/21 meclizine 25 mg PO TID PRN #20 tab 08/22/21 ondansetron 4 mg PO Q8H PRN 3 Days tab 08/22/21 atorvastatin 20 mg PO QHS 10/24/21 bisacodyl 10 mg [place] DAILY PRN 10/24/21 ferrous sulfate 325 mg PO BID 10/24/21 fluoxetine 20 mg PO DAILY 10/24/21 insulin glargine 16 unit SUBCUT BREAKFAST 10/24/21 levothyroxine 88 mcg PO DAILY 10/24/21 magnesium hydroxide [Milk of Magnesia] 30 ml PO DAILY PRN 10/24/21 metformin 1,000 mg PO BID 10/24/21 metoclopramide HCl [Reglan] 5 mg PO BID 10/24/21 pantoprazole 40 mg PO DAILY 10/24/21 pioglitazone 30 mg PO DAILY 10/24/21 acetaminophen [Tylenol] 650 mg PO Q6H PRN PRN #0 tab 10/28/21 amlodipine 5 mg PO DAILY #0 tab 10/28/21 enoxaparin 40 mg SUBCUT DAILY #4 ml 10/28/21 insulin lispro [Humalog KwikPen Insulin] See Protocol SUBCUT ACHS #0 ml 10/28/21 lisinopril 5 mg PO DAILY #0 tab 10/28/21 oxycodone 5 mg PO Q4H PRN PRN 3 Days #12 tab 10/28/21 Hospital Course Operations - ( Open Reduction w/ Internal Fixation Left Trimalleolar ankle fracture) Procedures None Summary of Care Provided Minutes Spent on Discharge: 32 Hospital Course: 1. Closed left trimalleolar fracture: CT left ankle individually reviewed and shows closed, comminuted displaced fracture of medial malleolus, displaced fracture of distal fibula, small intra- articular fracture of anterior distal tibia. Disruption of tibiotalar joint. Patient is being admitted on Medr floor. Plavix is held. Patient is moderate perioperative risk for ankle surgery. 10/25: CT left lower extremity shows the same. Twelve-lead EKG Plan for s urgery tomorrow by net web application developer Dr. Francisco. 10/26: ORIF 2. Hypertension: Blood pressure is elevated. Improved Lisinopril 5 and amlodipine 5. 3. Diabetes mellitus type 2: Glucose in BMP is 113, seems controlled. Accu-Chek insulin is covered with Humalog sliding scale. Hold oral hypoglycemic agents. 10/25: A1c 6.9. Glucose is reasonably well controlled for her age. 10/26: Give 1/2 dose of glargine this AM (8 units) since NPO for surgery. 4. CKD stage IV: stable 5. History of cerebral infarct, carotid artery occlusion, depression and dementia: Patient lost his son about 6 months ago. He does not have good memory. Continue antidepression medication. 6. Other comorbidities include GERD, hypothyroidism and dyslipidemia: Home medication reconciliation done. On Dulcolax suppository as needed, continued. Continue fluoxetine 7. VTE prophylaxis lovenox for 4 weeks.. Weight / BMI Weight Weight: 89.4 kg Body Mass Index (BMI) 35.1 ABG / Lab / Microbiology Data Result Diagrams: 10/25/21 05:41 10/25/21 05:41 Laboratory: Laboratory Results - last 24 hr 10/27/21 11:42: POC Glucose 276 H 10/27/21 16:34: POC Glucose 232 H 10/27/21 22:36: POC Glucose 279 H 10/28/21 06:21: POC Glucose 207 H Meaningful Use Info Meaningful Use Diagnoses (Choose all that apply): None applicable Discharge Plan Admission Admit Date/Time: 10/24/21 15:17 Primary Reason for Your Visit: left ankle fracture Attending Provider: Jeremy Aldrich Primary Care Provider: Billie De Leon Consulting Providers: Sulaiman Early ; Pal Francisco Discharge Orders/Prescriptions Prescriptions: New amlodipine 5 mg Tablet 5 mg PO DAILY Qty: 0 RF: 0 insulin lispro [Humalog KwikPen Insulin] 100 unit/mL Insulin Pen See Protocol unit subcut ACHS Qty: 0 RF: 0 lisinopril 5 mg Tablet 5 mg PO DAILY Qty: 0 RF: 0 oxycodone 5 mg Tablet 5 mg PO Q4H PRN PRN (Reason: pain (scale score 7-10)) 3 Days Qty: 12 RF: 0 acetaminophen [Tylenol] 325 mg Tablet 650 mg PO Q6H PRN PRN (Reason: Pain Score 1-10/Temp > 100.7 F) Qty: 0 RF: 0 enoxaparin 40 mg/0.4 mL syringe 40 mg subcut DAILY Qty: 4 RF: 0 Continued meclizine 25 mg tablet 25 mg PO TID PRN (Reason: dizziness) Qty: 20 RF: 0 ondansetron 4 mg tablet,disintegrating 4 mg PO Q8H PRN (Reason: nausea and vomiting) 3 Days RF: 0 clopidogrel 75 mg tablet 75 mg PO DAILY RF: 0 glipizide 5 mg tablet 2.5 mg PO DAILY RF: 0 atorvastatin 20 mg Tablet 20 mg PO QHS RF: 0 metoclopramide HCl [Reglan] 5 mg Tablet 5 mg PO BID RF: 0 magnesium hydroxide [Milk of Magnesia] 400 mg/5 mL Suspension 30 ml PO DAILY PRN (Reason: Constipation) RF: 0 bisacodyl 10 mg Suppository 10 mg AR DAILY PRN (Reason: Constipation) RF: 0 pantoprazole 40 mg Tablet,Delayed Release (Dr/Ec) 40 mg PO DAILY RF: 0 ferrous sulfate 325 mg (65 mg iron) Tablet 325 mg PO BID RF: 0 metformin 1,000 mg Tablet 1,000 mg PO BID RF: 0 pioglitazone 30 mg Tablet 30 mg PO DAILY RF: 0 fluoxetine 20 mg Capsule 20 mg PO DAILY RF: 0 insulin glargine 100 unit/mL Cartridge 16 unit SUBCUT BREAKFAST RF: 0 levothyroxine 88 mcg Capsule 88 mcg PO DAILY RF: 0 Referrals / Follow Up: Tujunga,Pal, DPM [STAFF PHYSICIAN] - Within 2 Weeks Billie De Leon MD [Primary Care Provider] - Within 1 Month Disposition Disposition (needs filled in before D/C Order can be placed): [facility] Facility Charges/Coding Visit Charges Inpatient E&M: 15083 Disch Hosp
[2021-10-28] MEDS: FLUoxetine 20 MG Capsule PO (09:45)
[2021-10-28] MEDS: Pantoprazole Sodium 40 MG Tablet PO (09:45)
--- NOTE | 2021-10-28 10:05 | PHA.DC.MR ---
Pharmacy Service has performed discharge medication reconciliation for this patient. The patient's discharge medication list was reviewed for discrepancies and discrepancies were resolved. Home Medications clopidogrel 75 mg PO DAILY 08/22/21 glipizide 2.5 mg PO DAILY 08/22/21 meclizine 25 mg PO TID PRN #20 tab 08/22/21 ondansetron 4 mg PO Q8H PRN 3 Days tab 08/22/21 atorvastatin 20 mg PO QHS 10/24/21 bisacodyl 10 mg [place] DAILY PRN 10/24/21 ferrous sulfate 325 mg PO BID 10/24/21 fluoxetine 20 mg PO DAILY 10/24/21 insulin glargine 16 unit SUBCUT BREAKFAST 10/24/21 levothyroxine 88 mcg PO DAILY 10/24/21 magnesium hydroxide [Milk of Magnesia] 30 ml PO DAILY PRN 10/24/21 metformin 1,000 mg PO BID 10/24/21 metoclopramide HCl [Reglan] 5 mg PO BID 10/24/21 pantoprazole 40 mg PO DAILY 10/24/21 pioglitazone 30 mg PO DAILY 10/24/21 acetaminophen [Tylenol] 650 mg PO Q6H PRN PRN #0 tab 10/28/21 amlodipine 5 mg PO DAILY #0 tab 10/28/21 enoxaparin 40 mg SUBCUT DAILY #4 ml 10/28/21 insulin lispro [Humalog KwikPen Insulin] See Protocol SUBCUT ACHS #0 ml 10/28/21 lisinopril 5 mg PO DAILY #0 tab 10/28/21 oxycodone 5 mg PO Q4H PRN PRN 3 Days #12 tab 10/28/21
[2021-10-28 11:20] LABS: Bedside Glucose 292 mg/dL (74-106)
--- NOTE | 2021-10-28 12:55 | NURSING ---
dietary called and requested they send up a nonselect tray as patient is a diabetic patient.
[2021-10-28 14:05] VITALS: BP 146/48; PULSE 95; RESP 18; TEMP 37.2; O2SAT 98
--- NOTE | 2021-10-28 14:27 | NURSING ---
attempted to call report to TCU, they will call back
--- NOTE | 2021-10-28 14:55 | NURSING ---
report called to Brice VANESSA on TCU.
--- NOTE | 2021-10-28 15:03 | CHAPLAIN ---
Type of Pastoral Visit ___ Initial Visit _x__ Follow-up Visit ___ On-call Visit ___ General Patient Visit ___ Spiritual Assessment ___ Family Conference ___ Bereavement ___ Rapid Response ___ Code Blue ___ Other (describe below) Pastoral Care Referral From _x__ Patient ___ Family ___ Nurse ___ Physician ___ Senior Librarian ___ International Account Representative ___ Other (describe below) Sacrament/Intervention _x__ Active listening ___ Anointing ___ Taoist ___ Bereavement ___ Communion ___ Monae exploration ___ ___ Life review _x__ Prayer ___ Reconciliation ___ Sacrament of Sick _x__ Supportive presence ___ Wedding ___ Other (describe below) Pastoral Comments patient was eating lunch; pt previously invited this restaurant operations manager for a return visit; pt has no family; pt expresses thankfulness that she can stay in this hospital in the rehab until I can go back to the [place]; casual conversation to give patient support and presence
== END 2021-10-28 15:12 | disposition skilled nursing facility (03) | DRG 493 ==
LOC: ED 15:28 → MS3 15:31
PROVIDERS: Podiatrist; Admitting Provider Internal Medicine; Emergency Provider Emergency Medicine; PCP Internal Medicine
PROC: 0QSH04Z Reposition Left Tibia with Internal Fixation Device, Open Approach (ICD-10-PCS; principal; 2021-10-26 13:10)
DX: S82.852A Displaced trimalleolar fracture of left lower leg, initial encounter for closed fracture (principal); N18.4 Chronic kidney disease, stage 4 (severe); E03.9 Hypothyroidism, unspecified; E11.22 Type 2 diabetes mellitus with diabetic chronic kidney disease; E11.51 Type 2 diabetes mellitus with diabetic peripheral angiopathy without gangrene; J44.9 Chronic obstructive pulmonary disease, unspecified; F03.90 Unspecified dementia, unspecified severity, without behavioral disturbance, psychotic disturbance, mood disturbance, and anxiety; Z79.4 Long term (current) use of insulin; E78.5 Hyperlipidemia, unspecified; I12.9 Hypertensive chronic kidney disease with stage 1 through stage 4 chronic kidney disease, or unspecified chronic kidney disease; W06.XXXA Fall from bed, initial encounter; K21.9 Gastro-esophageal reflux disease without esophagitis; I65.29 Occlusion and stenosis of unspecified carotid artery; Z86.73 Personal history of transient ischemic attack (TIA), and cerebral infarction without residual deficits; Z79.02 Long term (current) use of antithrombotics/antiplatelets; Z87.891 Personal history of nicotine dependence; Z66 Do not resuscitate; F32.A Depression, unspecified; Y92.129 Unspecified place in nursing home as the place of occurrence of the external cause; Z87.440 Personal history of urinary (tract) infections; E66.9 Obesity, unspecified; Z79.899 Other long term (current) drug therapy; Z68.35 Body mass index [BMI] 35.0-35.9, adult
CPT/HCPCS: 36415; 71045; 73600; 73610; 73630; 73700; 76000; 80048; 82962; 83036; 83735; 84443; 85025; 87426; 93005; 93923; 97162; 97166; 97530; 99251; 99285; C1713; J7030; J7120; A4216; G0463; J2405

== ENCOUNTER 2021-10-28 15:20 | Inpatient (IN) | payer MEDICARE, MEDICAID, SELFPAY ==
[2021-10-28 15:28] VITALS: BP 137/65; PULSE 81; RESP 18; TEMP 36.1; O2SAT 98; BMI 33.7
[2021-10-28 16:00] VITALS: BP 137/65; PULSE 81; RESP 18; TEMP 36.1; O2SAT 98
[2021-10-28 16:41] LABS: Bedside Glucose 253 mg/dL (74-106)
[2021-10-28] MEDS: metFORMIN HCl 1,000 MG Tablet 1000 MG PO (18:40)
[2021-10-28] MEDS: Ferrous Sulfate 325 MG Tablet PO (18:41)
--- NOTE | 2021-10-28 21:17 | PCM.HP.STD ---
HPI - General General Date of Admission: 10/28/21 HPI Narrative 10/24/2021 FANG HERNDON, is a 86 Female who presents to [facility] with lower extremity injury. Fall at [facility], fell out of bed, left foot, left ankle injury. Unable to bear weight, left foot, left ankle. X-ray shows left trimalleolar fracture. Morphine given. Left ankle posterior plus sugar tong splint applied. 10/24/2021 Admit to Hospital. Consult Dr. Francisco. Lisinopril 5mg daily for hypertension. 10/25/2021 Left ankle pain. 10/26/2021 Dr. Francisco performed open reduction internal fixation left trimalleolar ankle fracture. 10/27/2021 Left ankle pain better. A1c 6.9 for Diabetes Mellitus II. 10/27/2021 Left ankle pain. Blood pressure improved with lisinopril 5mg daily, Amlodipine 5mg daily. 10/28/2021 Admit to TCU with debility, here for rehabilitation, strengthening, prior to discharge home to [facility]. [facility] Medical History (Updated 10/28/21 @ 21:[address] Hemant Ward MD) Carotid artery occlusion Cerebral infarct COPD (chronic obstructive pulmonary disease) Dementia Depression Diabetes GERD (gastroesophageal reflux disease) Hearing loss Kidney disease Obesity Thyroid disease UTI (urinary tract infection) Weakness Home Medications clopidogrel 75 mg PO DAILY 08/22/21 [History Last Taken Unknown] glipizide 2.5 mg PO DAILY 08/22/21 [History Last Taken Unknown] meclizine 25 mg PO TID PRN #20 tab 08/22/21 [Rx Last Taken Unknown] ondansetron 4 mg PO Q8H PRN 3 Days tab 08/22/21 [Rx Last Taken Unknown] atorvastatin 20 mg PO QHS 10/24/21 [History Last Taken Unknown] bisacodyl 10 mg [place] DAILY PRN 10/24/21 [History Last Taken Unknown] ferrous sulfate 325 mg PO BID 10/24/21 [History Last Taken Unknown] fluoxetine 20 mg PO DAILY 10/24/21 [History Last Taken Unknown] insulin glargine 16 unit SUBCUT BREAKFAST 10/24/21 [History Last Taken Unknown] levothyroxine 88 mcg PO DAILY 10/24/21 [History Last Taken Unknown] magnesium hydroxide [Milk of Magnesia] 30 ml PO DAILY PRN 10/24/21 [History Last Taken Unknown] metformin 1,000 mg PO BID 10/24/21 [History Last Taken Unknown] metoclopramide HCl [Reglan] 5 mg PO BID 10/24/21 [History Last Taken Unknown] pantoprazole 40 mg PO DAILY 10/24/21 [History Last Taken Unknown] pioglitazone 30 mg PO DAILY 10/24/21 [History Last Taken Unknown] acetaminophen [Tylenol] 650 mg PO Q6H PRN PRN #0 tab 10/28/21 [Rx Last Taken Unknown] amlodipine 5 mg PO DAILY 10/28/21 [History Last Taken Unknown] enoxaparin 40 mg SUBCUT DAILY 10/28/21 [History Last Taken Unknown] insulin lispro [Humalog KwikPen Insulin] See Protocol SUBCUT ACHS 10/28/21 [History Last Taken Unknown] lisinopril 5 mg PO DAILY 10/28/21 [History Last Taken Unknown] oxycodone 5 mg PO Q4H PRN PRN 3 Days #12 tab 10/28/21 [Rx Last Taken Unknown] Allergy/AdvReac Type Severity Reaction Status Date / Time banana Allergy Hives Verified 10/24/21 13:31 peanut butter Allergy Hives Uncoded 10/24/21 13:31 Surgical History (Updated 10/28/21 @ 21:[address] Hemant Ward MD) Status post open reduction with internal fixation (ORIF) of fracture of ankle Social History (Updated 10/28/21 @ 21:[address] Hemant Ward MD) household members: none housing: assisted living facility Smoking Status: Former smoker alcohol intake: never substance use type: does not use ROS Constitutional Constitutional: Denies chills, fever(s) or weight gain ENT HEENT: Denies headache(s), nasal congestion or nasal discharge Cardiovascular Cardiovascular: Denies chest pain or palpitations Respiratory/Chest Respiratory/Chest: Denies cough, excessive phlegm production or shortness of breath with exertion Gastrointestinal Gastrointestinal: Denies abdominal pain, nausea or vomiting Genitourinary Genitourinary: Denies dysuria Musculoskeletal Musculoskeletal: Denies joint pain or joint swelling Integumentary Integumentary: Denies rash or wounds Neurologic Neurologic: Denies focal weakness, numbness or tingling Psychiatric Psychiatric: Denies anxiety, auditory hallucinations, depression, homicidal ideation or suicidal ideation Vital Signs Vital Signs Vital Signs: 10/28/21 15:28 10/28/21 16:00 Temperature 96.9 F L 96.9 F L Temperature Source Oral Oral Pulse Rate 81 81 Pulse Rhythm Regular Pulse Strength Normal (2+) Respiratory Rate 18 18 Respiratory Effort Normal Non-Labored Respiratory Depth Normal Respiratory Pattern Normal Blood Pressure 137/65 H 137/65 H Blood Pressure Mean 89 89 Blood Pressure Source Monitor Monitor Blood Pressure Position Supine Semi-Fowlers Blood Pressure Location Right Arm Right Arm Pulse Ox 98 98 Oxygen Delivery Method Nasal Cannula Nasal Cannula Oxygen Flow Rate (L/min) 3 3 Weight Weight: 86.9 kg Body Mass Index (BMI) 33.7 Physical Exam Const alert General Appearance: cooperative HEENT normocephalic Eyes PERRL and EOMs intact bilaterally Neck supple, no JVD and no carotid bruits Resp normal respiratory effort, normal air movement and clear to auscultation bilaterally Cardio regular rate and regular rhythm GI normal to inspection, nondistended, normoactive bowel sounds, non-tender and non-distended Extremity normal capillary refill Extremity Narrative: Left lower extremity splint. General Extremity: Negative for edema Skin no rashes or lesions noted General Skin Exam: no breakdown Psych affect normal Appearance: appropriate Results Lab / Micro Data Labs: Laboratory Results - last 24 hr 10/28/21 16:36: POC Glucose 253 H Assessment & Plan Assessment/Plan (1) Debility: (2) Closed trimalleolar fracture of ankle: QUALIFIERS: Encounter type: initial encounter Laterality: left Qualified Code(s): S82.852A - Displaced trimalleolar fracture of left lower leg, initial encounter for closed fracture (3) Stroke: (4) Diabetes mellitus: (5) Dizziness: (6) Nausea: (7) Hyperlipidemia: (8) Iron deficiency anemia: (9) Depression: (10) Hypothyroidism: (11) Gastroesophageal reflux disease: (12) Chronic obstructive pulmonary disease: (13) Vascular dementia: PLAN: 86 year old female with below past medical history hospitalized for left closed trimalleolar fracture, under ORIF 10/26/[address] Francisco, admitted to TCU with debility, here for rehabilitation, strengthening, prior to discharge home to [facility]. Debility - PT/OT. Cognition - ST. Pain - Tylenol 1000mg q6h prn pain (1-3), Oxycodone 5mg q4h prn pain (4-10). Bowel - senna/colace 1 tablet bid, Dulcolax 10mg pr daily prn. Adult immunization - Administer pneumonia vaccine, covid19 vaccine, flu vaccine as appropriate. DVT prophylaxis - Lovenox 40mg sc daily. Left ankle fracture status post ORIF - Consult Dr. Francisco. Hypertension - Lisinopril 5mg daily, Amlodipine 5mg daily. Hyperlipidemia - Atorvastatin 20mg qhs. Stroke - Plavix 75mg daily. Iron deficiency anemia - Ferrex 150mg daily. Diabetes Mellitus II - Metformin 1000mg bid, Glipizide 2.5mg daily. Hypothyroidism - Levothyroxine 88mcg daily. GERD - Pantoprazole 40mg daily.
[2021-10-28] MEDS: Atorvastatin Calcium 20 MG Tablet PO (21:52)
[2021-10-28] MEDS: Senna/Docusate Sodium 1 Tablet PO (21:55)
[2021-10-28 21:56] LABS: Bedside Glucose 204 mg/dL (74-106)
[2021-10-29 05:29] VITALS: BP 149/65; PULSE 89
[2021-10-29] MEDS: Pantoprazole Sodium 40 MG Tablet PO (05:32)
[2021-10-29] MEDS: amLODIPine 5 MG Tablet PO (05:32)
[2021-10-29] MEDS: Enoxaparin 40 MG/0.4 ML Syringe SC (05:32)
[2021-10-29] MEDS: Lisinopril 5 MG Tablet PO (05:33)
[2021-10-29] MEDS: Senna/Docusate Sodium 1 Tablet PO ×2 (05:35→16:13)
[2021-10-29] MEDS: Clopidogrel Bisulfate 75 MG Tablet PO (05:35)
[2021-10-29] MEDS: Levothyroxine 88 MCG Tablet PO (05:35)
[2021-10-29 05:49] LABS: Absolute Lymphocyte Count 1.35 X10^3/uL (0.83-4.51); Absolute Neutrophil Count 5.7 X10^3/uL (2.0-7.7); Basophil# 0.05 X10^3/uL; Basophil% 0.6 % (0-1); Eosinophil# 0.25 X10^3/uL; Hemoglobin 10.2 g/dL (12.0-15.0); Lymphocyte # 1.35 X10^3/ul (0.83-4.51); Lymphocyte % 16.1 % (19-41); Mean Corp Hgb Conc 31.9 g/dL (32-36); Mean Corpuscular Hgb 28.8 pg (27.0-32.0); Mean Corpuscular Volume 90.4 fL (81-99); Mean Platelet Vol. 10.3 fl (6.2-12.0); Monocyte# 0.98 X10^3/uL; Monocyte% 11.7 % (0-10); NRBC Flagged by Analyzer 0 % (0-5); Neutrophil # 5.71 X10^3/uL (2.7-7.7); Neutrophil % 68.1 % (47-70); Platelet Count 227 K/mm3 (150-450); RBC Distribution Width CV 14.3 % (11.6-14.6); RBC Distribution Width SD 47.7 fl (35.1-43.9); Red Blood Count 3.54 M/mm3 (4.2-5.4); White Blood Count 8.4 K/mm3 (4.4-11.0)
[2021-10-29 06:23] LABS: Anion Gap 3 (5-15); BUN 14 mg/dL (7-18); BUN/Creat Ratio 18.1 RATIO (10-20); Calcium,Total 9.4 mg/dL (8.5-10.1); Chloride 105 mmol/L (98-107); Creatinine, Serum 0.78 mg/dL (0.55-1.02); EST Glomerular Filtration Rate 75 mL/min (>60); Est Glom Filt Rate - Afr Amer 91 mL/min (>60); Estimated Creatinine Clearance 34.64 ml/min; Glucose 214 mg/dL (74-106); Sodium Level 138 mmol/L (136-145)
[2021-10-29 06:26] LABS: Bedside Glucose 225 mg/dL (74-106)
[2021-10-29 06:48] VITALS: O2SAT 93
[2021-10-29] MEDS: Potassium Chloride Oral Tablet 20 MEQ 40 MEQ PO (08:42)
[2021-10-29] MEDS: glipiZIDE 5 MG Tablet 2.5 MG PO (08:42)
[2021-10-29] MEDS: metFORMIN HCl 1,000 MG Tablet 1000 MG PO ×2 (08:43→16:13)
[2021-10-29] MEDS: Iron Polysaccharide Complex 150 MG CAPSULE PO (08:43)
[2021-10-29] MEDS: Tuberculin,Purif.prot.deriv. 50 TU/ML Vial 0.1 ML ID (10:14)
[2021-10-29 10:16] LABS: Bedside Glucose 374 mg/dL (74-106)
[2021-10-29 14:22] VITALS: RESP 16; O2SAT 93
[2021-10-29 16:00] VITALS: BP 114/56; PULSE 68; RESP 16; TEMP 36.8; O2SAT 94
[2021-10-29 16:35] LABS: Bedside Glucose 154 mg/dL (74-106)
--- NOTE | 2021-10-29 16:52 | CASEMGMT ---
Social Work See attached assessment for complete social work assessment. Met with patient in room. Introduced self and administrator social welfare role. Patient agreeable to speak with this administrator social welfare. Patient completed MOLST form with this administrator social welfare and wishes to be a DNRCC. Patient reports to have no family support and reports [facility] Patient plans to return to [facility] and if unable to return to assisted living admit to half-way at [facility]. Social work to continue to follow. Ronald Oliver MSW, CHRISSIE
[2021-10-29] MEDS: Atorvastatin Calcium 20 MG Tablet PO (20:47)
[2021-10-29 21:40] LABS: Bedside Glucose 309 mg/dL (74-106)
[2021-10-30] MEDS: Pantoprazole Sodium 40 MG Tablet PO (05:05)
[2021-10-30] MEDS: amLODIPine 5 MG Tablet PO (05:05)
[2021-10-30] MEDS: Clopidogrel Bisulfate 75 MG Tablet PO (05:05)
[2021-10-30] MEDS: Levothyroxine 88 MCG Tablet PO (05:05)
[2021-10-30] MEDS: Lisinopril 5 MG Tablet PO (05:05)
[2021-10-30] MEDS: Enoxaparin 40 MG/0.4 ML Syringe SC (05:06)
[2021-10-30] MEDS: Senna/Docusate Sodium 1 Tablet PO ×2 (05:06→17:15)
[2021-10-30 06:30] LABS: Bedside Glucose 196 mg/dL (74-106)
[2021-10-30 06:44] VITALS: O2SAT 90
[2021-10-30] MEDS: glipiZIDE 5 MG Tablet 2.5 MG PO (07:58)
[2021-10-30] MEDS: metFORMIN HCl 1,000 MG Tablet 1000 MG PO ×2 (07:58→17:15)
[2021-10-30] MEDS: Potassium Chloride Oral Tablet 20 MEQ PO (07:59)
[2021-10-30] MEDS: Iron Polysaccharide Complex 150 MG CAPSULE PO (08:00)
[2021-10-30 11:06] LABS: Bedside Glucose 263 mg/dL (74-106)
--- NOTE | 2021-10-30 12:22 | CON.PCM_ITS ---
Assessment & Plan Assessment/Plan (1) Status post open reduction with internal fixation (ORIF) of fracture of ankle: PLAN: Patient examined evaluated, all fine discussed with patient in detail Patient is 4 days postop. She is doing well with regards to pain neurovascular status to her digits. Splint was left intact today to avoid any contamination of the surgical site. We will plan to remove the splint and reevaluate the site as well as order radiographs on her next evaluation in 1 week. At that time we may consider early ambulation in a Cam walking boot assisted by a walker due to the patient's geriatric status to prevent any functional decompensation. Continue Lovenox and Plavix for DVT prophylaxis. Will follow up with the patient in 1 week. HPI Consult Data Date of Consult: 10/30/21 HPI Narrative HPI Narrative: FANG HERNDON, is a 86 F who presents to the TCU to 4 days postop from left ankle fracture ORIF. Patient has been nonweightbearing since that time patient denies any constitutional symptoms.. Pain is well controlled and limited to when the patient moves or the site is manipulated. Pain patient denies any chest pain calf pain shortness of breath. Patient has been nonweightbearing with clopidogrel and Lovenox for DVT prophylaxis. No other complaints at this time. [facility] Medical History (Updated 10/28/21 @ 21:[address] Hemant Ward MD) Carotid artery occlusion Cerebral infarct COPD (chronic obstructive pulmonary disease) Dementia Depression Diabetes GERD (gastroesophageal reflux disease) Hearing loss Kidney disease Obesity Thyroid disease UTI (urinary tract infection) Weakness Home Medications clopidogrel 75 mg PO DAILY 08/22/21 [History Last Taken Unknown] glipizide 2.5 mg PO DAILY 08/22/21 [History Last Taken Unknown] meclizine 25 mg PO TID PRN #20 tab 08/22/21 [Rx Last Taken Unknown] ondansetron 4 mg PO Q8H PRN 3 Days tab 08/22/21 [Rx Last Taken Unknown] atorvastatin 20 mg PO QHS 10/24/21 [History Last Taken Unknown] bisacodyl 10 mg [place] DAILY PRN 10/24/21 [History Last Taken Unknown] ferrous sulfate 325 mg PO BID 10/24/21 [History Last Taken Unknown] fluoxetine 20 mg PO DAILY 10/24/21 [History Last Taken Unknown] insulin glargine 16 unit SUBCUT BREAKFAST 10/24/21 [History Last Taken Unknown] levothyroxine 88 mcg PO DAILY 10/24/21 [History Last Taken Unknown] magnesium hydroxide [Milk of Magnesia] 30 ml PO DAILY PRN 10/24/21 [History Last Taken Unknown] metformin 1,000 mg PO BID 10/24/21 [History Last Taken Unknown] metoclopramide HCl [Reglan] 5 mg PO BID 10/24/21 [History Last Taken Unknown] pantoprazole 40 mg PO DAILY 10/24/21 [History Last Taken Unknown] pioglitazone 30 mg PO DAILY 10/24/21 [History Last Taken Unknown] acetaminophen [Tylenol] 650 mg PO Q6H PRN PRN #0 tab 10/28/21 [Rx Last Taken Un known] amlodipine 5 mg PO DAILY 10/28/21 [History Last Taken Unknown] enoxaparin 40 mg SUBCUT DAILY 10/28/21 [History Last Taken Unknown] insulin lispro [Humalog KwikPen Insulin] See Protocol SUBCUT ACHS 10/28/21 [History Last Taken Unknown] lisinopril 5 mg PO DAILY 10/28/21 [History Last Taken Unknown] oxycodone 5 mg PO Q4H PRN PRN 3 Days #12 tab 10/28/21 [Rx Last Taken Unknown] Allergy/AdvReac Type Severity Reaction Status Date / Time banana Allergy Hives Verified 10/24/21 13:31 peanut butter Allergy Hives Uncoded 10/24/21 13:31 Surgical History (Updated 10/28/21 @ 21:[address] Hemant Ward MD) Status post open reduction with internal fixation (ORIF) of fracture of ankle Social History (Updated 10/28/21 @ 21:[address] Hemant Ward MD) household members: none housing: assisted living facility Smoking Status: Former smoker alcohol intake: never substance use type: does not use Physical Exam Narrative Patient AAOx3. Maintaining nonweightbearing status to left lower extremity with intact splint. Splint not removed today. Neurovascular status intact to lesser digits to left lower extremity. Patient able to wiggle her digits without pain or discomfort. No pain with calf squeeze to left lower extremity or palpation of popliteal fossa. Lab / Micro Data Result Diagrams: 10/29/21 05:10 10/29/21 05:10 Labs: Laboratory Results - last 24 hr 10/29/21 16:23: POC Glucose 154 H 10/29/21 21:29: POC Glucose 309 H 10/30/21 06:22: POC Glucose 196 H 10/30/21 10:56: POC Glucose 263 H
[2021-10-30 15:50] VITALS: BP 107/62; PULSE 92; RESP 16; TEMP 36.4; O2SAT 95
[2021-10-30 16:50] LABS: Bedside Glucose 180 mg/dL (74-106)
[2021-10-30] MEDS: Juven (unflavored) Packet 1 PACKET PO (17:15)
[2021-10-30] MEDS: Atorvastatin Calcium 20 MG Tablet PO (19:45)
[2021-10-30 21:51] LABS: Bedside Glucose 261 mg/dL (74-106)
[2021-10-30 23:31] VITALS: PULSE 86; RESP 16; O2SAT 96
--- NOTE | 2021-10-31 02:40 | PCA ---
patient called at 230am stating she fell out of bed. It Consulting Manager and nurses went back and she was standing against her bed. when asked what happened she said she needed to pee and was trying to walk to bathroom
[2021-10-31 03:45] VITALS: BP 150/78; PULSE 90; RESP 20; TEMP 36.6; O2SAT 93
[2021-10-31] MEDS: Enoxaparin 40 MG/0.4 ML Syringe SC (05:18)
[2021-10-31] MEDS: amLODIPine 5 MG Tablet PO (05:19)
[2021-10-31] MEDS: Iron Polysaccharide Complex 150 MG CAPSULE PO (05:19)
[2021-10-31] MEDS: Clopidogrel Bisulfate 75 MG Tablet PO (05:19)
[2021-10-31] MEDS: Pantoprazole Sodium 40 MG Tablet PO (05:19)
[2021-10-31] MEDS: Lisinopril 5 MG Tablet PO (05:19)
[2021-10-31] MEDS: Levothyroxine 88 MCG Tablet PO (05:19)
[2021-10-31 06:20] LABS: Bedside Glucose 286 mg/dL (74-106)
[2021-10-31 07:05] LABS: Anion Gap 6 (5-15); BUN 25 mg/dL (7-18); BUN/Creat Ratio 27.5 RATIO (10-20); Calcium,Total 9.5 mg/dL (8.5-10.1); Chloride 100 mmol/L (98-107); Creatinine, Serum 0.91 mg/dL (0.55-1.02); EST Glomerular Filtration Rate 63 mL/min (>60); Est Glom Filt Rate - Afr Amer 76 mL/min (>60); Estimated Creatinine Clearance 38.07 ml/min; Glucose 300 mg/dL (74-106); Potassium 3.6 mmol/L (3.5-5.1); Sodium Level 135 mmol/L (136-145)
[2021-10-31] MEDS: glipiZIDE 5 MG Tablet 2.5 MG PO (08:52)
[2021-10-31] MEDS: Potassium Chloride Oral Tablet 20 MEQ PO (08:53)
[2021-10-31] MEDS: metFORMIN HCl 1,000 MG Tablet 1000 MG PO ×2 (08:53→16:17)
[2021-10-31] MEDS: Juven (unflavored) Packet 1 PACKET PO ×2 (08:53→16:17)
[2021-10-31 11:01] LABS: Bedside Glucose 330 mg/dL (74-106)
[2021-10-31 15:56] LABS: Bedside Glucose 208 mg/dL (74-106)
[2021-10-31 16:15] VITALS: BP 128/56; PULSE 85; RESP 16; TEMP 36.4; O2SAT 95
[2021-10-31 21:16] LABS: Bedside Glucose 237 mg/dL (74-106)
[2021-10-31] MEDS: Atorvastatin Calcium 20 MG Tablet PO (21:20)
--- NOTE | 2021-11-01 03:45 | NURSING ---
Pt found on floor while completing rounds. Laying on rt side near rt side of bed. Denies any pain or discomfort. Denies hitting head. Vitals obtained and recorded. Pt acknowledges she attempted to get oob without any assistance. Incontinent of loose, brown stool. Tubing to purewick disconnected. Brief wet. Assisted back to bed per 4 staff. Maintained NWB status to E during transfer. magazine grinder loader provided am care. Call light w/ in reach. Will report to oncoming nurse. Call light w/ in reach. Pt instructed to to complete unassisted transfers.
[2021-11-01] MEDS: Iron Polysaccharide Complex 150 MG CAPSULE PO (06:09)
[2021-11-01] MEDS: Lisinopril 5 MG Tablet PO (06:10)
[2021-11-01] MEDS: Levothyroxine 88 MCG Tablet PO (06:10)
[2021-11-01] MEDS: amLODIPine 5 MG Tablet PO (06:10)
[2021-11-01] MEDS: Clopidogrel Bisulfate 75 MG Tablet PO (06:10)
[2021-11-01] MEDS: Pantoprazole Sodium 40 MG Tablet PO (06:10)
[2021-11-01] MEDS: Enoxaparin 40 MG/0.4 ML Syringe SC (06:11)
[2021-11-01 06:16] VITALS: BP 153/61; PULSE 90
[2021-11-01 06:31] LABS: Bedside Glucose 300 mg/dL (74-106)
[2021-11-01] MEDS: Potassium Chloride Oral Tablet 20 MEQ PO (07:59)
[2021-11-01] MEDS: glipiZIDE 5 MG Tablet 2.5 MG PO (08:00)
[2021-11-01] MEDS: metFORMIN HCl 1,000 MG Tablet 1000 MG PO ×2 (08:01→16:41)
[2021-11-01] MEDS: Juven (unflavored) Packet 1 PACKET PO ×2 (08:02→16:42)
[2021-11-01 10:31] VITALS: O2SAT 95
[2021-11-01 11:01] LABS: Bedside Glucose 282 mg/dL (74-106)
[2021-11-01 15:05] VITALS: BP 166/77; PULSE 71; RESP 16; TEMP 36.6; O2SAT 93
[2021-11-01] MEDS: Senna/Docusate Sodium 1 Tablet PO (16:41)
[2021-11-01 16:45] LABS: Bedside Glucose 164 mg/dL (74-106)
[2021-11-01] MEDS: Atorvastatin Calcium 20 MG Tablet PO (20:25)
[2021-11-01 20:30] VITALS: O2SAT 93
--- NOTE | 2021-11-01 21:03 | NURSING ---
Paged Dr. Ward w/ return phone call w/ almost immediate return call. Updated on fall this am. This nurse completed assessment this shift and continues to deny any c/o. Pt without any injuries. No new orders received.
[2021-11-01 22:00] LABS: Bedside Glucose 208 mg/dL (74-106)
[2021-11-02] MEDS: Senna/Docusate Sodium 1 Tablet PO (05:54)
[2021-11-02] MEDS: Levothyroxine 88 MCG Tablet PO (05:54)
[2021-11-02] MEDS: Lisinopril 5 MG Tablet PO (05:54)
[2021-11-02] MEDS: Pantoprazole Sodium 40 MG Tablet PO (05:54)
[2021-11-02] MEDS: Clopidogrel Bisulfate 75 MG Tablet PO (05:54)
[2021-11-02] MEDS: Enoxaparin 40 MG/0.4 ML Syringe SC (05:55)
[2021-11-02] MEDS: Iron Polysaccharide Complex 150 MG CAPSULE PO (05:55)
[2021-11-02] MEDS: amLODIPine 5 MG Tablet PO (05:56)
[2021-11-02 06:00] VITALS: BP 126/72; PULSE 82; O2SAT 97
[2021-11-02 06:30] LABS: Bedside Glucose 226 mg/dL (74-106)
--- NOTE | 2021-11-02 07:38 | NURSING ---
0700Pt found on floor next to bed. Pt states she needed to use bathroom. Purewick still in place.Urine on the floor. Pt stated she hit her head and pointed to back of her head.No lumps noted at that time Neurochecks unchanged. Good hip movement. No distress. BP 187/[address] Ward notified
--- NOTE | 2021-11-02 08:10 | NURSING ---
Addendum entered by Yanely Rosas 11/02/21 10:12: Pt returned from ED at this time. Nurse to Nurse report received from ED nurse and stated they took images of her head, abdomen and pelvis with negative findings, pt medicated with 5mg of oxy IR for pain but pt immediately vomited back up the medication so zofran was administered for nausea, nurse stated that she may need oxy regiven after the zofran calms her nausea. Original Note: Report called to ED, pt transported to ED.
[2021-11-02 10:51] LABS: Bedside Glucose 304 mg/dL (74-106)
--- NOTE | 2021-11-02 11:53 | PCM.PN.DRR ---
TCU RX Drug Regimen Review Subjective: TCU Admission. 86 YOF presented to ER with a lower extremity injury. Admitted to the hospital where ORIF was preformed. Medications added for hypertension. Admitted to TCU with debility for rehabilitation and strengthening. Objective: Allergies banana Allergy (Verified 11/02/21 08:15) Hives peanut butter Allergy (Uncoded 11/02/21 08:15) Hives Current Medications Generic Name Dose Route Start Last Admin Trade Name Freq PRN Reason Stop Dose Admin Acetaminophen 1,000 mg 10/28/21 21:33 Acetaminophen 500 Mg Tablet PO Q6H PRN PRN Pain Score 1-3 Amlodipine Besylate 5 mg 10/29/21 06:00 11/02/21 05:56 Amlodipine 5 Mg Tablet PO 5 mg DAILY ANIYAH Administration Atorvastatin Calcium 20 mg 10/28/21 22:00 11/01/21 20:25 Atorvastatin Calcium 20 Mg Tablet PO 20 mg QHS ANIYAH Administration Bisacodyl 10 mg 10/28/21 15:48 Bisacodyl 10 Mg Suppository RC DAILY PRN Constipation Clopidogrel Bisulfate 75 mg 10/29/21 06:00 11/02/21 05:54 Clopidogrel Bisulfate 75 Mg Tablet PO 75 mg DAILY ANIYAH Administration Enoxaparin Sodium 40 mg 10/29/21 06:00 11/02/21 05:55 Enoxaparin 40 Mg/0.4 Ml Syringe SC 40 mg DAILY ANIYAH Administration Glipizide 2.5 mg 10/29/21 08:00 11/01/21 08:00 Glipizide 5 Mg Tablet PO 2.5 mg DAILYCM ANIYAH Administration L-Arginine/L-Glutamine/Calcium HMB 1 packet 10/30/21 17:00 11/01/21 16:42 Moris (Unflavored) Packet PO 1 packet BIDCM ANIYAH Administration Levothyroxine Sodium 88 mcg 10/29/21 06:00 11/02/21 05:54 Levothyroxine 88 Mcg Tablet PO 88 mcg DAILY ANIYAH Administration Lisinopril 5 mg 10/29/21 06:00 11/02/21 05:54 Lisinopril 5 Mg Tablet PO 5 mg DAILY ANIYAH Administration Metformin HCl 1,000 mg 10/28/21 17:00 11/01/21 16:41 Metformin Hcl 1,000 Mg Tablet PO 1,000 mg BIDCM ANIYAH Administration Oxycodone HCl 5 mg 10/28/21 21:33 Oxycodone 5 Mg Tablet PO Q4H PRN PRN Pain Score 4-10 Pantoprazole Sodium 40 mg 10/29/21 06:00 11/02/21 05:54 Pantoprazole Sodium 40 Mg Tablet PO 40 mg DAILY ANIYAH Administration Polysaccharide Iron Complex 150 mg 10/29/21 06:00 11/02/21 05:55 Iron Polysaccharide Complex 150 Mg Capsule PO 150 mg DAILY ANIYAH Administration Potassium Chloride 20 meq 10/30/21 08:00 11/01/21 07:59 Potassium Chloride Oral Tablet 20 Meq PO 20 meq DAILYCM ANIYAH Administration Senna/Docusate Sodium 1 tablet 10/28/21 21:45 11/02/21 05:54 Senna/Docusate Sodium 1 Tablet PO 1 tablet BID ANIYAH Administration Tuberculin PPD 0.1 ml 11/05/21 10:00 Tuberculin,Purif.Prot.Deriv. 50 Tu/Ml Vial ID 11/05/21 10:01 X1 ONE Problem List (Last Reviewed 11/02/21 @ 08:[address] Margarita Jamison MD) Vascular dementia (Acute) Chronic obstructive pulmonary disease (Chronic) Gastroesophageal reflux disease (Acute) Hypothyroidism (Acute) Depression (Acute) Iron deficiency anemia (Acute) Hyperlipidemia (Acute) Nausea (Acute) Dizziness (Acute) Diabetes mellitus (Acute) Stroke (Acute) Debility (Acute) Status post open reduction with internal fixation (ORIF) of fracture of ankle (Acute) Closed trimalleolar fracture of ankle (Acute) Vital Signs Temp Pulse Resp BP Pulse Ox 97.9 F 82 16 126/72 H 97 11/01/21 15:05 11/02/21 06:00 11/01/21 15:05 11/02/21 06:00 11/02/21 06:00 Oxygen Flow Rate (L/min) 2 Oxygen Delivery Method Room Air Weight: 86.9 kg Body Mass Index (BMI) 33.7 Sodium 135 mmol/L (136-145) L 10/31/21 06:25 Potassium 3.6 mmol/L (3.5-5.1) 10/31/21 06:25 Chloride 100 mmol/L (98-107) 10/31/21 06:25 Carbon Dioxide 29.0 mmol/L (21.0-32.0) 10/31/21 06:25 Anion Gap 6 (5-15) 10/31/21 06:25 BUN 25 mg/dL (7-18) H 10/31/21 06:25 Creatinine 0.91 mg/dL (0.55-1.02) 10/31/21 06:25 Est GFR (MDRD) Af Amer 76 mL/min (>60) 10/31/21 06:25 Est GFR (MDRD) Non-Af 63 mL/min (>60) 10/31/21 06:25 BUN/Creatinine Ratio 27.5 RATIO (10-20) H 10/31/21 06:25 Glucose 300 mg/dL (74-106) H 10/31/21 06:25 Assessment/Plan: 1. Pain: acetaminophen 1000mg PO Q6H PRN pain 1-3 and oxycodone 5mg PO Q4H PRN pain 4-10. Resident has not required any doses. Please continue to monitor for increased pain and PRN usage. 2. Bowel: senna/docusate 1T PO BID and bisacodyl 10mg RC daily PRN constipation. Please continue to monitor for constipation and PRN usage. Resident has not required and bisacodyl doses yet. 3. DVT prophylaxis: enoxaparin 40mg SC daily. Please continue to monitor for S/S of bleeding/DVT, hemoglobin (last 10.2g/dL), platelets (last 227,000) and renal function. 4. Hypertension: lisinopril 5mg PO daily and amlodipine 5mg PO daily. Please continue to monitor BP (last 126/72), potassium (last 3.6mmol/L), renal function, cough and swelling. 5. Hyperlipidemia: atorvastatin 20mg PO QHS. Please continue to monitor lipid panel (last 06/15/21) at least annually and muscle pain. 6. Stroke: clopidogrel 75mg PO daily. Please continue to monitor for S/S of bleeding and stroke. 7. Iron deficiency anemia: Ferrex 150mg PO daily. Please continue to monitor hemoglobin, dark stools and constipation. 8. Diabetes mellitus II: metformin 1000mg PO BIDCM and glipizide 2.5mg PO DAILYCM. Please continue to monitor renal function, hemoglobin A1c (last 6.9% ), glucose (last 304mg/dL), S/S of hypoglycemia and weight gain. 9. Hypothyroidism: levothyroxine 88mcg PO daily. Please continue to monitor for S/S of hypo/hyperthyroidism and TSH (last 10/25/21). 10. GERD: pantoprazole 40mg PO daily. Please continue to monitor for S/S of GERD and diarrhea. 11. Hypokalemia: potassium chloride 20mEq PO DAILYCM. Please continue to monitor potassium levels. Assessment/Plan for indications treated with psychotropic medications: None Medical chart and medication regimen reviewed. The following medication irregularities or issues were identified: None Date of Note:: 11/02/21
[2021-11-02] MEDS: Acetaminophen 500 MG Tablet 1000 MG PO (12:26)
[2021-11-02] MEDS: Potassium Chloride Oral Tablet 20 MEQ PO (12:27)
[2021-11-02] MEDS: glipiZIDE 5 MG Tablet 2.5 MG PO (12:28)
[2021-11-02] MEDS: metFORMIN HCl 1,000 MG Tablet 1000 MG PO ×2 (12:28→18:31)
--- NOTE | 2021-11-02 13:44 | NURSING ---
resident educated on the COVID 19 Vaccine and does not want to receive it.
[2021-11-02] MEDS: Ondansetron ODT 4 MG Tablet PO (15:21)
[2021-11-02 15:52] VITALS: PULSE 83; RESP 20; TEMP 36.2; O2SAT 93
[2021-11-02 16:45] LABS: Bedside Glucose 379 mg/dL (74-106)
[2021-11-02] MEDS: Insulin Lispro 100 UNIT/ML INSULN.PEN SC (18:31)
[2021-11-02] MEDS: Atorvastatin Calcium 20 MG Tablet PO (21:19)
[2021-11-02 22:01] LABS: Bedside Glucose 315 mg/dL (74-106)
[2021-11-02] MEDS: Insulin Lispro 100 UNIT/ML INSULN.PEN 10 UNIT SC (22:36)
--- NOTE | 2021-11-02 23:08 | NURSING ---
Dr. Ed gutierrez d/t blood glucose 315 mg/dL. New order received: 10 units Humalog x1 dose.
[2021-11-03 02:10] VITALS: BP 151/79; PULSE 96; RESP 16; O2SAT 96
--- NOTE | 2021-11-03 02:15 | NURSING ---
While rounding, patient found with yellow-jocelyn color emesis on blankets and gowns. Patient changed and cleaned up. Vitals obtained as noted. Blood glucose 233 mg/dL. Patient able to answer name, , year and place. Patient refuses to take any zofran at this time.
[2021-11-03 02:16] LABS: Bedside Glucose 233 mg/dL (74-106)
[2021-11-03] MEDS: Ondansetron ODT 4 MG Tablet PO ×2 (06:37→18:06)
[2021-11-03] MEDS: Enoxaparin 40 MG/0.4 ML Syringe SC (06:38)
--- NOTE | 2021-11-03 06:40 | NURSING ---
Patient continues to be nauseated. PRN Zofran given per order. Will hold AM meds at this time.
[2021-11-03 06:46] LABS: Bedside Glucose 230 mg/dL (74-106)
[2021-11-03] MEDS: metFORMIN HCl 1,000 MG Tablet 1000 MG PO ×2 (08:01→18:03)
[2021-11-03] MEDS: Pantoprazole Sodium 40 MG Tablet PO (08:01)
[2021-11-03] MEDS: Iron Polysaccharide Complex 150 MG CAPSULE PO (08:01)
[2021-11-03] MEDS: Lisinopril 5 MG Tablet PO (08:01)
[2021-11-03] MEDS: Levothyroxine 88 MCG Tablet PO (08:01)
[2021-11-03] MEDS: Potassium Chloride Oral Tablet 20 MEQ PO (08:01)
[2021-11-03] MEDS: amLODIPine 5 MG Tablet PO (08:01)
[2021-11-03] MEDS: Clopidogrel Bisulfate 75 MG Tablet PO (08:01)
[2021-11-03] MEDS: Senna/Docusate Sodium 1 Tablet PO ×2 (08:01→16:44)
[2021-11-03] MEDS: Juven (unflavored) Packet 1 PACKET PO (08:02)
[2021-11-03] MEDS: glipiZIDE 5 MG Tablet 2.5 MG PO (08:02)
[2021-11-03 08:10] VITALS: BP 161/56; PULSE 97
--- NOTE | 2021-11-03 10:30 | NURSING ---
Pt continuing to have Emesis awaiting Insurance Authorization for CT. Dr. Ward updated on pt's Blood pressure 186/69 and chest pain non-radiating. N.O. for EKG Urinalysis CBC and BMP.
--- NOTE | 2021-11-03 10:34 | EKG12_ITS ---
Test Reason : CP Blood Pressure : / mmHG Vent. Rate : 096 BPM Atrial Rate : 096 BPM P-R Int : 166 ms QRS Dur : 086 ms QT Int : 356 ms P-R-T Axes : 069 050 033 degrees QTc Int : 449 ms Sinus rhythm with Premature atrial complexes Otherwise normal ECG When compared with ECG of 25-OCT-2021 13:17, Premature atrial complexes are now Present Vent. rate has increased BY 36 BPM Confirmed by LO FLOYD, RAUL ([id number]), film editor supervisor JESSIKA LINDSEY ([id number]) on 11/05/2021 12:52:53 PM Referred By: Hemant Ward Confirmed By:RAUL BLANCHARD MD
--- NOTE | 2021-11-03 10:52 | PT ---
Pt very lethargic and delayed when answering questions asked. Pt agreeable to supine LE exercises. When doing exercises she needed frequent cueing to continue with exercises and was very lethargic. Pt c/o chest pain. RN and WASH HOUSE SUPERVISOR called to pt's room. Pt denied any radiating pain in her arms. She stated she just has pain in her chest. Pt's SPO2 was 97% and temp was 97.1. Her BP was 189/67. Pt then became nauseated and had an emesis. Per nursing, pt will have another CT scan today. requested pt also have urine tested due to change in mental status.
--- NOTE | 2021-11-03 11:00 | NURSING ---
Straight Cath completed using sterile technique pt tolerated well. Pt had 500cc of yellow, cloudy, and had odor. Urine Sent to Lab.
[2021-11-03 11:16] LABS: Bedside Glucose 299 mg/dL (74-106)
[2021-11-03 11:52] LABS: Absolute Lymphocyte Count 1.35 X10^3/uL (0.83-4.51); Basophil# 0.04 X10^3/uL; Basophil% 0.2 % (0-1); Eosinophil# 0.01 X10^3/uL; Eosinophils% 0.1 % (0-5); Hematocrit 39.2 % (37-47); Hemoglobin 12.7 g/dL (12.0-15.0); Lymphocyte # 1.35 X10^3/ul (0.83-4.51); Lymphocyte % 8.1 % (19-41); Mean Corp Hgb Conc 32.4 g/dL (32-36); Mean Corpuscular Hgb 28.9 pg (27.0-32.0); Mean Corpuscular Volume 89.3 fL (81-99); Mean Platelet Vol. 10.8 fl (6.2-12.0); Monocyte# 1.06 X10^3/uL; Monocyte% 6.4 % (0-10); NRBC Flagged by Analyzer 0 % (0-5); Neutrophil # 14.04 X10^3/uL (2.7-7.7); Neutrophil % 84.2 % (47-70); Platelet Count 376 K/mm3 (150-450); RBC Distribution Width CV 14.4 % (11.6-14.6); RBC Distribution Width SD 46.6 fl (35.1-43.9); Red Blood Count 4.39 M/mm3 (4.2-5.4); White Blood Count 16.7 K/mm3 (4.4-11.0)
[2021-11-03 12:16] VITALS: BP 167/80; PULSE 94; TEMP 36.1; O2SAT 96
[2021-11-03 12:31] LABS: Anion Gap 7 (5-15); BUN 39 mg/dL (7-18); BUN/Creat Ratio 32.2 RATIO (10-20); Calcium,Total 9.6 mg/dL (8.5-10.1); Chloride 98 mmol/L (98-107); Creatinine, Serum 1.21 mg/dL (0.55-1.02); EST Glomerular Filtration Rate 45 mL/min (>60); Est Glom Filt Rate - Afr Amer 54 mL/min (>60); Estimated Creatinine Clearance 28.63 ml/min; Glucose 343 mg/dL (74-106); Potassium 3.6 mmol/L (3.5-5.1); Sodium Level 134 mmol/L (136-145)
[2021-11-03 12:46] LABS: Mucous, Urine 0 SEEN /hpf (<or=2+)
[2021-11-03 12:48] LABS: Color, Urine Yellow (Yellow); Glucose, Dipstick 1000 mg/dl (Normal); Ketone-Dipstick 15 mg/dl (Negative); Leukocyte Esterase-Dipstick 500 /ul (Negative); Nitrite-Dipstick Negative (Negative); Occult Blood-Urine 50 /ul (Negative); Protein-Dipstick 30 mg/dl (Negative); Specific Gravity, Urine 1.015 (1.002-1.030); Urine Bilirubin Dipstick Negative (Negative); Urine Clarity Cloudy (Clear); Urine Urobilinogen Normal (Normal)
[2021-11-03 12:59] LABS: Bacteria 4+ /hpf (None Seen); Red Blood Cells-Urine 0-5 SEEN /hpf (0-5); Squamous Epithelial Cells - UA 0-5 SEEN /hpf (5-10); White Blood Cells >100 SEEN /hpf (0-5)
--- NOTE | 2021-11-03 13:00 | NURSING ---
Dr. Ward updated on pt's urinalysis. N.O. for Cipro BID for 7 days.
[2021-11-03] MEDS: Insulin Lispro 100 UNIT/ML INSULN.PEN 7 UNIT SC (13:55)
[2021-11-03 14:45] VITALS: BP 148/73; PULSE 99; RESP 16; TEMP 36.3; O2SAT 92
[2021-11-03] MEDS: Ciprofloxacin 250 MG Tablet PO (16:44)
--- NOTE | 2021-11-03 16:50 | CASEMGMT ---
Social Work BIMS and PHQ-9 completed for MDS assessment. Shavon Ballesteros, COMPOUND COATING MACHINE OFFBEARER FORM BLOCK MAKER
[2021-11-03 17:11] LABS: Bedside Glucose 372 mg/dL (74-106)
[2021-11-03] MEDS: Insulin Lispro 100 UNIT/ML INSULN.PEN 10 UNIT SC ×2 (18:02)
[2021-11-03 20:49] VITALS: PULSE 77; RESP 14; O2SAT 94
[2021-11-03] MEDS: Atorvastatin Calcium 20 MG Tablet PO (21:04)
[2021-11-03] MEDS: oxyCODONE 5 MG Tablet PO (21:04)
[2021-11-03 21:45] LABS: Bedside Glucose 196 mg/dL (74-106)
[2021-11-03 23:30] VITALS: BP 152/68; PULSE 99; RESP 16; TEMP 36.2; O2SAT 94
[2021-11-04] VITALS (14 sets, daily range): BP systolic 153–197; BP diastolic 58–76; PULSE 70–99; RESP 17; TEMP 36.2–36.6; O2SAT 95–96
[2021-11-04] MEDS: Enoxaparin 40 MG/0.4 ML Syringe SC (06:29)
[2021-11-04] MEDS: Pantoprazole Sodium 40 MG Tablet PO (06:30)
[2021-11-04] MEDS: Clopidogrel Bisulfate 75 MG Tablet PO (06:30)
[2021-11-04] MEDS: Lisinopril 5 MG Tablet PO (06:30)
[2021-11-04] MEDS: amLODIPine 5 MG Tablet PO (06:30)
[2021-11-04] MEDS: Iron Polysaccharide Complex 150 MG CAPSULE PO (06:30)
[2021-11-04] MEDS: Levothyroxine 88 MCG Tablet PO (06:30)
[2021-11-04] MEDS: Senna/Docusate Sodium 1 Tablet PO ×2 (06:30→17:16)
[2021-11-04 06:31] LABS: Bedside Glucose 248 mg/dL (74-106)
[2021-11-04] MEDS: Ciprofloxacin 250 MG Tablet PO ×2 (06:32→17:16)
--- NOTE | 2021-11-04 07:53 | RAD_ITS ---
STUDY: X-RAY - LUMBAR SPINE REASON FOR EXAM: Female, 86 years old. Low back pain TECHNIQUE: 5 view(s) of the lumbar spine were obtained including oblique views. COMPARISON: None FINDINGS: There is an exaggerated lumbar lordosis. There is no substantial scoliosis. There is a normal alignment of the vertebrae. Mild loss of right of the superior endplate of the L2 vertebrae. There is multi-level degenerative disc disease with multi-level disc space narrowing. Facet joint osteoarthritis. There is atherosclerotic calcification of the abdominal aorta without a demonstrated aneurysm. RAD/L/S Spine Min 4 Views IMPRESSION: Degenerative changes of the spine, as detailed above. Mild loss of height of the superior endplate of the L2 vertebra. Electronically Signed: Ton Rod MD at 10:53 EDT ,
--- NOTE | 2021-11-04 08:45 | NURSING ---
Paged Dr. Francisco to assess surgical wound under dressing per Dr. Lynn nursing communication. Dr. Francisco will be in at noon.
[2021-11-04] MEDS: Insulin Lispro 100 UNIT/ML INSULN.PEN 10 UNIT SC ×3 (08:54→22:02)
[2021-11-04] MEDS: hydrALAZINE 10 MG Tablet PO (08:54)
[2021-11-04] MEDS: metFORMIN HCl 1,000 MG Tablet 1000 MG PO ×2 (08:55→17:15)
[2021-11-04] MEDS: Potassium Chloride Oral Tablet 20 MEQ PO (08:55)
[2021-11-04] MEDS: glipiZIDE 5 MG Tablet 2.5 MG PO (08:55)
[2021-11-04] MEDS: Metoprolol Tartrate 25 MG Tablet 12.5 MG PO ×2 (08:57→17:16)
[2021-11-04] MEDS: 0.9% Normal Saline 1,000 ML 75 ML IV ×2 (09:48→23:27)
[2021-11-04 10:51] LABS: Bedside Glucose 311 mg/dL (74-106)
[2021-11-04] MEDS: oxyCODONE 5 MG Tablet PO (11:13)
--- NOTE | 2021-11-04 12:01 | NURSING ---
Pt Blood pressure 197/74 Pulse 84 SpO2 96% RA. Pt's bladder assessed and pt stated it feels full. Pt Bladder scanned for >999 got pt up to bed side commode and voided a small amount. Pt was incontinent of urine prior to bladder scanning. Dr. Ward updated and N.O. to place indwelling Murry cath. Hydralazine 25mg TID first dose now and IV Rocephin.
--- NOTE | 2021-11-04 12:18 | PN_ITS ---
Subjective Subjective Patient seen then 10 days postop. Patient's pain is well controlled. Patient able to actively move digits without pain. Patient notes only pain with manipulation of the site. No other complaints. Denies constitutional symptoms. Denies chest pain calf pain shortness of breath. Objective Data Objective Data Vital Signs: Vital Signs Temp Pulse Resp BP Pulse Ox 97.1 F L 84 16 197/74 H 96 11/04/21 11:40 11/04/21 11:40 11/03/21 23:30 11/04/21 11:40 11/04/21 11:40 Oxygen Flow Rate (L/min) 2 Oxygen Delivery Method Room Air Weight: 86.9 kg Body Mass Index (BMI) 33.7 Intake & Output: Intake and Output for Last 24 Hours 11/02/21 11/03/21 11/04/21 23:59 23:59 23:59 Intake Total 240 / 240 600 / 600 120 / 120 Output Total 600 / 600 400 / 400 500 / 500 Balance -360 / -360 200 / 200 -380 / -380 Lab / Micro Data Result Diagrams: 11/03/21 11:40 11/03/21 11:40 Labs: Laboratory Results - last 24 hr 11/03/21 11:40: Sodium 134 L, Potassium 3.6, Chloride 98, Carbon Dioxide 29.0, Anion Gap 7, BUN 39 H, Creatinine 1.21 H, Estim Creat Clear Calc 28.63, Est GFR (MDRD) Af Amer 54 L, Est GFR (MDRD) Non-Af 45 L, BUN/Creatinine Ratio 32.2 H, Glucose 343 H, Calcium 9.6 11/03/21 12:36: Urine Color Yellow, Urine Clarity Cloudy, Urine pH 6.0, Ur Specific [place] 1.015, Urine Protein 30 H, Urine Glucose (UA) 1000 H, Urine Ketones 15 H, Urine Occult Blood 50 H, Urine Nitrite Negative, Urine Bilirubin Negative, Urine Urobilinogen Normal, Ur Leukocyte Esterase 500 H, Urine RBC 0-5 SEEN, Urine WBC >100 SEEN, Ur Squamous Epith Cells 0-5 SEEN, Urine Bacteria 4+, Urine Mucus 0 SEEN 11/03/21 16:50: POC Glucose 372 H 11/03/21 21:40: POC Glucose 196 H 11/04/21 06:12: POC Glucose 248 H 11/04/21 10:36: POC Glucose 311 H Micro: Microbiology 11/03/21 12:36 Urine, Catheterized Urine Culture - Preliminary Presumptive E. coli 11/04/21 06:45 Nasal Secretion SARS-CoV-2 Antigen (Rapid) - Final Radiography Diagnostic Testing: Radiology Impression Lumbar Spine X-Ray 11/04/21 07:53 IMPRESSION: Degenerative changes of the spine, as detailed above. Mild loss of height of the superior endplate of the L2 vertebra. Electronically Signed: Ton Rod MD at 10:53 EDT , Physical Exam Narrative Patient AAOx3. Maintaining nonweightbearing status to left lower extremity with intact splint. Splint removed today. Incisional sites to medial lateral ankle are well approximated with intact hansa. No acute signs of infection. Mild ecchymosis noted to the periincisional areas. Edema well controlled, no pain with calf squeeze or palpation of popliteal fossa. This is noted to be bilateral. Neurovascular status intact to lesser digits to left lower extremity. Patient able to wiggle her digits without pain or discomfort. No pain with calf squeeze to left lower extremity or palpation of popliteal fossa. Assessment & Plan Assessment/Plan (1) Status post open reduction with internal fixation (ORIF) of fracture of a nkle: PLAN: Patient examined evaluated, all fine discussed with patient in detail Patient is 10 days postop. She is doing well with regards to pain neurovascular status to her digits. There was some concern for some leukocytosis possibly related to a UTI, but the surgical site was inspected. Upon removal of the dressing there is noted to be some bruising to the periwound incisional areas but no signs of infection or incisional breakdown at this time. Patient has no signs of DVT. Patient will continue nonweightbearing in splint I will follow-up with patient on Tuesday or Tuesday of next week to remove the splint and dressing 1 more time remove the hansa and transition the patient into a Cam walking boot. We will order x- rays for early next week to ensure maintained intraoperative positioning and healing of the fractures. At this time there is no concern for infection at the surgical site or deep venous thrombosis postoperatively. Well-padded posterior splint was applied to left lower extremity.
--- NOTE | 2021-11-04 12:52 | NURSING ---
Billet Inspector Note: Interview and Section F of MDS complete.
[2021-11-04] MEDS: Ceftriaxone 1 GM/50 ML BAG IV (13:03)
[2021-11-04] MEDS: hydrALAZINE 25 MG Tablet PO ×2 (13:06→19:32)
--- NOTE | 2021-11-04 13:42 | CASEMGMT ---
Social Work IDT met with patient for care plan meeting. Discussed patient's progress in PT/OT/ST. Pt has shown a recent overall decline. Pt is NWBS on RLE but Dr simms order a boot for foot. Explained [facility] insurance with [facility] 11/05 and continued stay is not guaranteed. Explained and provided insurance care plan with [facility] 11/11. Pt resides at [facility] and needs to return to [place] to [place]. Inquired about alternative DC plan. Pt agreeable to DC to [facility] if needed. Pt does have [employer] insurance - precert will need obtained. SW to continue to follow for DC planning. Shavon Ballesteros, INSPECTION MACHINE TENDER FLUX MIXER
--- NOTE | 2021-11-04 15:37 | CHAPLAIN ---
Type of Pastoral Visit ___ Initial Visit ___ Follow-up Visit ___ On-call Visit ___ General Patient Visit ___ Spiritual Assessment ___ Family Conference ___ Bereavement ___ Rapid Response ___ Code Blue ___ Other (describe below) Pastoral Care Referral From ___ Patient ___ Family ___ Nurse ___ Physician ___ Peoplesoft Crm Developer ___ Nut Sheller ___ Other (describe below) Sacrament/Intervention ___ Active listening ___ Anointing ___ Yarsanism ___ Bereavement ___ Communion ___ Monae exploration ___ ___ Life review ___ Prayer ___ Reconciliation ___ Sacrament of Sick ___ Supportive presence ___ Wedding ___ Other (describe below) Pastoral Comments two attempts to see patient today; pt was sleeping and later pt was receiving personal care;
[2021-11-04 16:11] LABS: Bedside Glucose 168 mg/dL (74-106)
[2021-11-04] MEDS: Juven (unflavored) Packet 1 PACKET PO (17:16)
--- NOTE | 2021-11-04 17:30 | NURSING ---
Addendum entered by Joaquina Jacques 11/04/21 19:24: Pt's blood pressure rechecked 188/[address] Ward updated N.O. to give 2200 dose of Norvasc and Apresoline now and recheck blood pressure in 1 hour. Original Note: Dr. Ward updated on pt's blood pressure N.O. for Catapres 01mg x1 dose and recheck Blood pressure in 1 hour. Call light within reach.
[2021-11-04] MEDS: cloNIDine HCl 0.1 MG Tablet PO (17:58)
[2021-11-04] MEDS: Bisacodyl 10 MG Suppository RC (19:20)
[2021-11-04] MEDS: amLODIPine 10 MG Tablet PO (19:32)
[2021-11-04] MEDS: Atorvastatin Calcium 20 MG Tablet PO (19:33)
--- NOTE | 2021-11-04 19:37 | NURSING ---
Per Dr. Ward, 2200 medications administered at this time.
[2021-11-04 20:51] LABS: Bedside Glucose 383 mg/dL (74-106)
--- NOTE | 2021-11-04 20:53 | NURSING ---
VS assessed at 2029. BP was 111/45, taken manually. Heart rate was 74. Blood glucose was 383. Dr. Ward updated. One time only additional dose of insulin lispro ordered.
[2021-11-04] MEDS: Insulin Glargine-YFGN 100 UNIT/ML Pen 20 UNIT SC (22:03)
[2021-11-05] VITALS (10 sets, daily range): BP systolic 110–202; BP diastolic 54–86; PULSE 64–90; RESP 16–18; TEMP 35.5; O2SAT 97
[2021-11-05] MEDS: oxyCODONE 5 MG Tablet PO ×2 (04:13→12:56)
[2021-11-05] MEDS: hydrALAZINE 25 MG Tablet PO ×3 (04:55→15:07)
[2021-11-05] MEDS: Metoprolol Tartrate 25 MG Tablet 12.5 MG PO ×2 (04:56→15:05)
[2021-11-05] MEDS: Levothyroxine 88 MCG Tablet PO (04:57)
[2021-11-05] MEDS: Clopidogrel Bisulfate 75 MG Tablet PO (04:57)
[2021-11-05] MEDS: Pantoprazole Sodium 40 MG Tablet PO (04:57)
[2021-11-05] MEDS: Lisinopril 5 MG Tablet PO (04:58)
[2021-11-05] MEDS: Iron Polysaccharide Complex 150 MG CAPSULE PO (04:58)
[2021-11-05] MEDS: Enoxaparin 30 MG/0.3 ML Syringe SC (04:59)
[2021-11-05] MEDS: Ciprofloxacin 250 MG Tablet PO ×2 (04:59→17:38)
[2021-11-05 06:00] LABS: Absolute Lymphocyte Count 2.84 X10^3/uL (0.83-4.51); Absolute Neutrophil Count 6.8 X10^3/uL (2.0-7.7); Basophil# 0.05 X10^3/uL; Basophil% 0.4 % (0-1); Eosinophil# 0.13 X10^3/uL; Eosinophils% 1.1 % (0-5); Hematocrit 32.1 % (37-47); Hemoglobin 10.2 g/dL (12.0-15.0); Lymphocyte # 2.84 X10^3/ul (0.83-4.51); Lymphocyte % 25.1 % (19-41); Mean Corp Hgb Conc 31.8 g/dL (32-36); Mean Corpuscular Hgb 28.7 pg (27.0-32.0); Mean Corpuscular Volume 90.4 fL (81-99); Mean Platelet Vol. 10.4 fl (6.2-12.0); Monocyte# 1.28 X10^3/uL; Monocyte% 11.3 % (0-10); NRBC Flagged by Analyzer 0 % (0-5); Neutrophil % 60.2 % (47-70); Platelet Count 286 K/mm3 (150-450); RBC Distribution Width CV 14.1 % (11.6-14.6); Red Blood Count 3.55 M/mm3 (4.2-5.4); White Blood Count 11.3 K/mm3 (4.4-11.0)
[2021-11-05 06:20] LABS: Bedside Glucose 126 mg/dL (74-106)
[2021-11-05 06:48] LABS: Anion Gap 7 (5-15); BUN 34 mg/dL (7-18); BUN/Creat Ratio 42.4 RATIO (10-20); Calcium,Total 8.1 mg/dL (8.5-10.1); Chloride 104 mmol/L (98-107); EST Glomerular Filtration Rate 72 mL/min (>60); Est Glom Filt Rate - Afr Amer 88 mL/min (>60); Glucose 119 mg/dL (74-106); Potassium 3.3 mmol/L (3.5-5.1); Sodium Level 136 mmol/L (136-145)
[2021-11-05] MEDS: Insulin Lispro 100 UNIT/ML INSULN.PEN 7 UNIT SC ×3 (08:04→17:39)
[2021-11-05] MEDS: Potassium Chloride Oral Tablet 20 MEQ 40 MEQ PO (08:05)
[2021-11-05] MEDS: glipiZIDE 5 MG Tablet 2.5 MG PO (08:05)
[2021-11-05] MEDS: Potassium Chloride Oral Tablet 20 MEQ PO (08:05)
[2021-11-05] MEDS: metFORMIN HCl 1,000 MG Tablet 1000 MG PO ×2 (08:05→17:38)
[2021-11-05] MEDS: Juven (unflavored) Packet 1 PACKET PO ×2 (08:08→17:38)
[2021-11-05 11:15] LABS: Bedside Glucose 231 mg/dL (74-106)
[2021-11-05] MEDS: Tuberculin,Purif.prot.deriv. 50 TU/ML Vial 0.1 ML ID (13:40)
--- NOTE | 2021-11-05 15:01 | NURSING ---
Notified Dr. Ward of patient's current BP, received order to administer Lopressor 12.5mg, Hydralizine 25mg, and Clonidine 0.1mg now, order repeated back, will add order.
[2021-11-05] MEDS: cloNIDine HCl 0.1 MG Tablet PO (15:07)
--- NOTE | 2021-11-05 15:12 | PCA ---
appt. on 11/09, I called to see if she was still required to go to this appt. since the came to see her in the hospital the other day. Left a voicemail, waiting for a return call
--- NOTE | 2021-11-05 15:20 | NURSING ---
Notified patient's person to contact of covid positive employee.
--- NOTE | 2021-11-05 15:44 | CHAPLAIN ---
Type of Pastoral Visit ___ Initial Visit _x__ Follow-up Visit ___ On-call Visit ___ General Patient Visit ___ Spiritual Assessment ___ Family Conference ___ Bereavement ___ Rapid Response ___ Code Blue ___ Other (describe below) Pastoral Care Referral From _x__ Patient ___ Family ___ Nurse ___ Physician ___ Admitting Representative ___ Land Development Project Manager ___ Other (describe below) Sacrament/Intervention _x__ Active listening ___ Anointing ___ Mormon ___ Bereavement ___ Communion ___ Monae exploration ___ ___ Life review _x__ Prayer ___ Reconciliation ___ Sacrament of Sick _x__ Supportive presence ___ Wedding ___ Other (describe below) Pastoral Comments this patient was previously seen in [facility]; pt is lying down in bed with eyes closed; RN enters room at same time to give meds; pt becomes somewhat more alert but keeps eyes closed mostly; reminded pt of presence and she acknowledges it; pt says she would like a prayer; small talk and inquiry about needs or wants; pt says she has no needs but expresses thanks for the visit and time given
[2021-11-05 16:41] LABS: Bedside Glucose 148 mg/dL (74-106)
[2021-11-05] MEDS: Senna/Docusate Sodium 1 Tablet PO (17:38)
[2021-11-05] MEDS: amLODIPine 5 MG Tablet PO (17:39)
[2021-11-05] MEDS: Losartan Potassium 50 MG Tablet PO (17:41)
[2021-11-05 21:16] LABS: Bedside Glucose 316 mg/dL (74-106)
[2021-11-05] MEDS: Atorvastatin Calcium 20 MG Tablet PO (21:53)
[2021-11-05] MEDS: Insulin Glargine-YFGN 100 UNIT/ML Pen 20 UNIT SC (21:53)
[2021-11-05] MEDS: hydrALAZINE 25 MG Tablet 75 MG PO (22:02)
[2021-11-06] MEDS: 0.9% Normal Saline 1,000 ML 75 ML IV (04:07)
[2021-11-06 05:29] VITALS: BP 123/46; PULSE 70
[2021-11-06 05:31] VITALS: BP 123/46; PULSE 70
[2021-11-06] MEDS: Metoprolol Tartrate 25 MG Tablet PO ×3 (05:31→21:45)
[2021-11-06] MEDS: Iron Polysaccharide Complex 150 MG CAPSULE PO (05:31)
[2021-11-06] MEDS: Enoxaparin 40 MG/0.4 ML Syringe SC (05:31)
[2021-11-06] MEDS: amLODIPine 5 MG Tablet PO ×2 (05:31→17:27)
[2021-11-06] MEDS: hydrALAZINE 25 MG Tablet 75 MG PO ×3 (05:31→21:45)
[2021-11-06] MEDS: Losartan Potassium 50 MG Tablet PO ×2 (05:31→17:28)
[2021-11-06] MEDS: Ciprofloxacin 250 MG Tablet PO ×2 (05:31→17:27)
[2021-11-06] MEDS: Senna/Docusate Sodium 1 Tablet PO (05:32)
[2021-11-06] MEDS: Pantoprazole Sodium 40 MG Tablet PO (05:32)
[2021-11-06] MEDS: Clopidogrel Bisulfate 75 MG Tablet PO (05:32)
[2021-11-06] MEDS: Levothyroxine 88 MCG Tablet PO (05:32)
[2021-11-06 06:16] LABS: Bedside Glucose 167 mg/dL (74-106)
[2021-11-06 06:38] LABS: Anion Gap 6 (5-15); BUN 39 mg/dL (7-18); BUN/Creat Ratio 39.4 RATIO (10-20); Calcium,Total 8.7 mg/dL (8.5-10.1); Chloride 104 mmol/L (98-107); Creatinine, Serum 0.99 mg/dL (0.55-1.02); EST Glomerular Filtration Rate 57 mL/min (>60); Est Glom Filt Rate - Afr Amer 69 mL/min (>60); Estimated Creatinine Clearance 34.99 ml/min; Glucose 165 mg/dL (74-106); Potassium 4.1 mmol/L (3.5-5.1); Sodium Level 134 mmol/L (136-145)
[2021-11-06] MEDS: Insulin Lispro 100 UNIT/ML INSULN.PEN 7 UNIT SC ×3 (08:16→17:32)
[2021-11-06] MEDS: metFORMIN HCl 1,000 MG Tablet 1000 MG PO ×2 (08:18→17:29)
[2021-11-06] MEDS: glipiZIDE 5 MG Tablet 2.5 MG PO (08:18)
[2021-11-06] MEDS: Potassium Chloride Oral Tablet 20 MEQ PO (08:18)
[2021-11-06] MEDS: Juven (unflavored) Packet 1 PACKET PO ×2 (08:19→17:26)
[2021-11-06] MEDS: oxyCODONE 5 MG Tablet PO ×2 (10:37→14:38)
[2021-11-06 10:51] VITALS: PULSE 71; RESP 18; O2SAT 99
[2021-11-06 10:55] LABS: Bedside Glucose 176 mg/dL (74-106)
[2021-11-06] MEDS: Insulin Lispro 100 UNIT/ML INSULN.PEN 9 UNIT SC (11:56)
[2021-11-06 13:32] VITALS: BP 136/59; PULSE 74
[2021-11-06 13:44] VITALS: BP 136/59; PULSE 74; RESP 16; TEMP 36.1; O2SAT 96
--- NOTE | 2021-11-06 13:49 | NURSING ---
Addendum entered by Martha Danielson 11/06/21 14:22: lab blood glucose 64. glucagon 1mg given per MD order. pt less lethargic and answering questions approp. c/o LT foot/ankle pain. will administer oxyir. Addendum entered by Martha Danielson 11/06/21 13:58: 1358 rechecked BS via fingerstick 55, will administer glucagon. Original Note: entered room approx 1340 and noted pt diaphoretic and lethargic. blood sugar 41, 8 oz of OJ given. lab notified for blood glucose draw. dr angel updated, new order for glucagon if needed.
[2021-11-06] MEDS: Acetaminophen 500 MG Tablet 1000 MG PO ×2 (14:01→21:42)
[2021-11-06] MEDS: Glucagon 1 MG/ML Syringe IM (14:06)
[2021-11-06 14:14] LABS: Glucose 64 mg/dL (74-106)
[2021-11-06 14:21] LABS: Bedside Glucose 41 mg/dL (74-106)
[2021-11-06 14:21] LABS: Bedside Glucose 55 mg/dL (74-106)
[2021-11-06 14:47] LABS: Bedside Glucose 170 mg/dL (74-106)
--- NOTE | 2021-11-06 15:53 | NURSING ---
pt c/o nausea after oxyir administration. dr angel notified, new order PRN ultram instead and DC oxyir.
[2021-11-06 16:05] LABS: Bedside Glucose 212 mg/dL (74-106)
--- NOTE | 2021-11-06 17:40 | NURSING ---
pt attempted to take 1800 meds and became sick and vomited small amt of liquid yellow fluid. trying to eat pears at this time. will continue to monitor.
--- NOTE | 2021-11-06 18:54 | NURSING ---
During rounding this nurse entered room and found pt standing over bed, RT knee in bed and LT foot up in air. this nurse assisted pt into bed by rolling her onto to bed. pt had pulled peñaloza tubing apart during her self transfer to the bed from chair. urine on floor, cleaned up urine. pt HS care provided in bed by [employer] ACCOUNTS MANAGER. attends changed. incont care provided. alarm in place on bed, call light in reach.
[2021-11-06 19:01] LABS: Bedside Glucose 183 mg/dL (74-106)
[2021-11-06 21:35] LABS: Bedside Glucose 141 mg/dL (74-106)
[2021-11-06 21:45] VITALS: BP 160/54; PULSE 92
[2021-11-06] MEDS: Atorvastatin Calcium 20 MG Tablet PO (21:45)
[2021-11-06] MEDS: Insulin Glargine-YFGN 100 UNIT/ML Pen 20 UNIT SC (21:47)
[2021-11-07] VITALS (9 sets, daily range): BP systolic 119–147; BP diastolic 43–60; PULSE 60–81; RESP 16; TEMP 36.7; O2SAT 98
[2021-11-07] MEDS: Acetaminophen 500 MG Tablet 1000 MG PO (05:36)
[2021-11-07] MEDS: 0.9% Saline Lock 10 ML Syringe IV ×2 (05:36→18:17)
[2021-11-07] MEDS: Enoxaparin 40 MG/0.4 ML Syringe SC (05:37)
[2021-11-07] MEDS: hydrALAZINE 25 MG Tablet 75 MG PO (05:37)
[2021-11-07] MEDS: Ciprofloxacin 250 MG Tablet PO ×2 (05:38→16:35)
[2021-11-07] MEDS: Levothyroxine 88 MCG Tablet PO (05:38)
[2021-11-07] MEDS: amLODIPine 5 MG Tablet PO ×2 (05:38→18:16)
[2021-11-07] MEDS: Pantoprazole Sodium 40 MG Tablet PO (05:38)
[2021-11-07] MEDS: Clopidogrel Bisulfate 75 MG Tablet PO (05:38)
[2021-11-07] MEDS: Losartan Potassium 50 MG Tablet PO ×2 (05:39→18:16)
[2021-11-07] MEDS: Metoprolol Tartrate 25 MG Tablet PO ×3 (05:39→21:21)
[2021-11-07] MEDS: Iron Polysaccharide Complex 150 MG CAPSULE PO (05:39)
[2021-11-07 06:30] LABS: Bedside Glucose 141 mg/dL (74-106)
[2021-11-07] MEDS: Insulin Lispro 100 UNIT/ML INSULN.PEN 7 UNIT SC ×2 (08:10→12:01)
[2021-11-07] MEDS: Juven (unflavored) Packet 1 PACKET PO ×2 (08:10→16:35)
[2021-11-07] MEDS: Potassium Chloride Oral Tablet 20 MEQ PO (08:10)
[2021-11-07] MEDS: metFORMIN HCl 1,000 MG Tablet 1000 MG PO (08:10)
[2021-11-07] MEDS: glipiZIDE 5 MG Tablet 2.5 MG PO (08:10)
[2021-11-07 09:36] LABS: Bedside Glucose 259 mg/dL (74-106)
[2021-11-07 11:16] LABS: Bedside Glucose 244 mg/dL (74-106)
--- NOTE | 2021-11-07 11:57 | NURSING ---
Pt very sleepy this shift easily aroused Dr. Ward updated N.O. to decreased Apresoline to 50 mg tid.
[2021-11-07] MEDS: hydrALAZINE 50 MG Tablet PO (13:46)
[2021-11-07 16:36] LABS: Bedside Glucose 69 mg/dL (74-106)
[2021-11-07] MEDS: Insulin Glargine-YFGN 100 UNIT/ML Pen 20 UNIT SC (21:20)
[2021-11-07] MEDS: Atorvastatin Calcium 20 MG Tablet PO (21:21)
[2021-11-07 21:31] LABS: Bedside Glucose 323 mg/dL (74-106)
[2021-11-08] VITALS (8 sets, daily range): BP systolic 117–157; BP diastolic 41–59; PULSE 47–76; RESP 18; TEMP 35.8; O2SAT 95–100
[2021-11-08 02:01] LABS: Bedside Glucose 102 mg/dL (74-106)
[2021-11-08] MEDS: traMADol 50 MG Tablet PO ×2 (04:30→10:37)
[2021-11-08] MEDS: Enoxaparin 40 MG/0.4 ML Syringe SC (04:31)
[2021-11-08] MEDS: Clopidogrel Bisulfate 75 MG Tablet PO (04:32)
[2021-11-08] MEDS: Iron Polysaccharide Complex 150 MG CAPSULE PO (04:32)
[2021-11-08] MEDS: Ciprofloxacin 250 MG Tablet PO ×2 (04:32→17:15)
[2021-11-08] MEDS: Levothyroxine 88 MCG Tablet PO (04:32)
[2021-11-08] MEDS: Pantoprazole Sodium 40 MG Tablet PO (04:32)
[2021-11-08] MEDS: Metoprolol Tartrate 25 MG Tablet PO ×3 (04:32→21:45)
[2021-11-08] MEDS: amLODIPine 5 MG Tablet PO ×2 (04:32→18:07)
[2021-11-08] MEDS: Losartan Potassium 50 MG Tablet PO ×2 (04:33→18:07)
[2021-11-08] MEDS: hydrALAZINE 50 MG Tablet PO (04:33)
[2021-11-08] MEDS: Nystatin Powder 15gm Bottle 1 APPLIC TOPICAL ×2 (04:43→18:07)
[2021-11-08] MEDS: Menthol/Lanolin/Calamine/Znox 113 GM Tube 1 APPLIC TOPICAL ×2 (04:43→18:07)
[2021-11-08 06:31] LABS: Bedside Glucose 98 mg/dL (74-106)
[2021-11-08] MEDS: metFORMIN HCl 1,000 MG Tablet 1000 MG PO ×2 (07:47→18:07)
[2021-11-08] MEDS: Potassium Chloride Oral Tablet 20 MEQ PO (07:47)
[2021-11-08] MEDS: glipiZIDE 5 MG Tablet 2.5 MG PO (07:47)
[2021-11-08] MEDS: Juven (unflavored) Packet 1 PACKET PO ×2 (07:47→17:15)
[2021-11-08 11:16] LABS: Bedside Glucose 199 mg/dL (74-106)
[2021-11-08] MEDS: Insulin Lispro 100 UNIT/ML INSULN.PEN 7 UNIT SC (12:21)
[2021-11-08] MEDS: hydrALAZINE 50 MG Tablet 75 MG PO (14:34)
[2021-11-08] MEDS: Acetaminophen 500 MG Tablet 1000 MG PO (15:17)
[2021-11-08 16:35] LABS: Bedside Glucose 92 mg/dL (74-106)
--- NOTE | 2021-11-08 17:43 | NURSING ---
Pt Blood Pressure 117/[address] Ward updated and would like Juanita and Jose Armando given and hold Apresoline @2200.
[2021-11-08] MEDS: 0.9% Saline Lock 10 ML Syringe IV (19:18)
[2021-11-08] MEDS: Atorvastatin Calcium 20 MG Tablet PO (21:45)
[2021-11-08 21:46] LABS: Bedside Glucose 213 mg/dL (74-106)
[2021-11-08] MEDS: Insulin Glargine-YFGN 100 UNIT/ML Pen 15 UNIT SC (21:46)
[2021-11-09] VITALS (8 sets, daily range): BP systolic 109–147; BP diastolic 35–51; PULSE 65–76; RESP 14–18; TEMP 36.4; O2SAT 97–98
[2021-11-09] MEDS: Enoxaparin 40 MG/0.4 ML Syringe SC (05:06)
[2021-11-09] MEDS: Clopidogrel Bisulfate 75 MG Tablet PO (05:06)
[2021-11-09] MEDS: Pantoprazole Sodium 40 MG Tablet PO (05:06)
[2021-11-09] MEDS: amLODIPine 5 MG Tablet PO ×2 (05:06→17:31)
[2021-11-09] MEDS: Ciprofloxacin 250 MG Tablet PO ×2 (05:06→17:31)
[2021-11-09] MEDS: Metoprolol Tartrate 25 MG Tablet PO (05:06)
[2021-11-09] MEDS: Losartan Potassium 50 MG Tablet PO ×2 (05:07→17:33)
[2021-11-09] MEDS: Iron Polysaccharide Complex 150 MG CAPSULE PO (05:07)
[2021-11-09] MEDS: hydrALAZINE 50 MG Tablet 75 MG PO (05:07)
[2021-11-09] MEDS: Levothyroxine 88 MCG Tablet PO (05:09)
[2021-11-09] MEDS: 0.9% Saline Lock 10 ML Syringe IV ×2 (05:13→14:52)
[2021-11-09] MEDS: Menthol/Lanolin/Calamine/Znox 113 GM Tube 1 APPLIC TOPICAL ×2 (05:16→17:31)
[2021-11-09] MEDS: Nystatin Powder 15gm Bottle 1 APPLIC TOPICAL ×2 (05:16→17:31)
[2021-11-09 06:21] LABS: Bedside Glucose 159 mg/dL (74-106)
--- NOTE | 2021-11-09 08:00 | NURSING ---
pt off unit for appt
[2021-11-09] MEDS: metFORMIN HCl 1,000 MG Tablet 1000 MG PO ×2 (10:11→17:31)
[2021-11-09] MEDS: Potassium Chloride Oral Tablet 20 MEQ PO (10:11)
[2021-11-09] MEDS: glipiZIDE 5 MG Tablet 2.5 MG PO (10:11)
[2021-11-09] MEDS: Juven (unflavored) Packet 1 PACKET PO ×2 (10:12→17:30)
--- NOTE | 2021-11-09 10:20 | NURSING ---
Pt returned from appt with Dr. Francisco. Per order, hansa were removed to left side of foot/ankle. Xrays will be ordered at hospital. Incisions healed, pressure injury to left heel, offload heels in bed. patient can ambulate with walker and cam boot for transfer purposes. Follow up in 2 weeks.
--- NOTE | 2021-11-09 10:40 | RAD_ITS ---
STUDY: X-RAY - LEFT ANKLE REASON FOR EXAM: Female, 86 years old. left ankle fracture repair TECHNIQUE: 3 view(s) of the ankle. COMPARISON: 10/24/2021 FINDINGS: Healing fracture of the distal fibula after open reduction internal fixation with a lateral plate and screws. Healing fracture of the medial malleolus and tibia after open reduction internal fixation with 2 screws. Evidence of cysts distal syndesmosis stabilization with anchors. Normal tibiotalar articulation and ankle mortise. Normal visualized talus and calcaneus. Small plantar and posterior calcaneal enthesophytes. The visualized subtalar, talonavicular, calcaneocuboid and tarsal articulations are normal. The soft tissue structures are unremarkable. RAD/Ankle min 3 Views IMPRESSION: Healing fractures of the distal fibula and medial malleolus with distal syndesmosis stabilization. Electronically Signed: Carlos Price MD at 11:08 EDT ,
[2021-11-09 11:05] LABS: Bedside Glucose 269 mg/dL (74-106)
[2021-11-09] MEDS: Insulin Lispro 100 UNIT/ML INSULN.PEN 7 UNIT SC ×2 (11:50→17:30)
[2021-11-09 16:10] LABS: Bedside Glucose 144 mg/dL (74-106)
[2021-11-09] MEDS: traMADol 50 MG Tablet PO (20:58)
[2021-11-09] MEDS: Atorvastatin Calcium 20 MG Tablet PO (21:01)
[2021-11-09 21:25] LABS: Bedside Glucose 81 mg/dL (74-106)
[2021-11-09] MEDS: Insulin Glargine-YFGN 100 UNIT/ML Pen 15 UNIT SC (22:07)
[2021-11-09 22:11] LABS: Bedside Glucose 110 mg/dL (74-106)
[2021-11-10] MEDS: 0.9% Saline Lock 10 ML Syringe IV ×3 (05:45→22:51)
[2021-11-10] MEDS: Menthol/Lanolin/Calamine/Znox 113 GM Tube 1 APPLIC TOPICAL ×2 (05:47→17:50)
[2021-11-10] MEDS: Acetaminophen 500 MG Tablet 1000 MG PO (05:47)
[2021-11-10] MEDS: Enoxaparin 40 MG/0.4 ML Syringe SC (05:48)
[2021-11-10 05:49] VITALS: BP 125/42; PULSE 92
[2021-11-10 05:50] VITALS: BP 125/42; PULSE 92
[2021-11-10] MEDS: Levothyroxine 88 MCG Tablet PO (05:50)
[2021-11-10] MEDS: Clopidogrel Bisulfate 75 MG Tablet PO (05:50)
[2021-11-10] MEDS: Pantoprazole Sodium 40 MG Tablet PO (05:50)
[2021-11-10] MEDS: Iron Polysaccharide Complex 150 MG CAPSULE PO (05:50)
[2021-11-10] MEDS: Ciprofloxacin 250 MG Tablet PO ×2 (05:50→17:48)
[2021-11-10] MEDS: Nystatin Powder 15gm Bottle 1 APPLIC TOPICAL ×2 (05:51→17:49)
[2021-11-10 06:46] LABS: Bedside Glucose 190 mg/dL (74-106)
--- NOTE | 2021-11-10 07:43 | NURSING ---
dr angel updated on CT scan showing adrenal adenoma & pts s/sx recently with elevated BP's and sugars. Hydralazine decreased.
[2021-11-10] MEDS: Potassium Chloride Oral Tablet 20 MEQ PO (07:56)
[2021-11-10] MEDS: metFORMIN HCl 1,000 MG Tablet 1000 MG PO ×2 (07:56→17:48)
[2021-11-10] MEDS: glipiZIDE 5 MG Tablet 2.5 MG PO (07:56)
[2021-11-10] MEDS: Juven (unflavored) Packet 1 PACKET PO ×2 (07:56→17:47)
[2021-11-10] MEDS: Insulin Lispro 100 UNIT/ML INSULN.PEN 7 UNIT SC ×2 (07:56→11:37)
--- NOTE | 2021-11-10 10:39 | MDS.RN ---
Information for the mds was obtained from review of the clinical record, interview of resident, staff, and direct observation of residnent's care.
[2021-11-10 10:51] LABS: Bedside Glucose 203 mg/dL (74-106)
[2021-11-10 11:42] VITALS: PULSE 91; RESP 18; O2SAT 97
--- NOTE | 2021-11-10 12:05 | CASEMGMT ---
Addendum entered by Shavon Ballesteros 11/11/21 14:17: [facility] can accept pt when ready for DC. Updated pt. Original Note: Social Work Pt's insurance NRD 11/12. Referred to [facility] for DC plan. Shavon Ballesteros, THUAN BULLARDW
[2021-11-10 13:33] VITALS: BP 123/80; PULSE 88; RESP 18; TEMP 36.6; O2SAT 97
[2021-11-10 14:29] VITALS: PULSE 88
[2021-11-10] MEDS: hydrALAZINE 50 MG Tablet PO (14:29)
[2021-11-10] MEDS: Metoprolol Tartrate 25 MG Tablet PO (14:29)
[2021-11-10 16:41] LABS: Bedside Glucose 88 mg/dL (74-106)
[2021-11-10] MEDS: amLODIPine 5 MG Tablet PO (17:49)
[2021-11-10] MEDS: Losartan Potassium 50 MG Tablet PO (17:49)
[2021-11-10 21:31] LABS: Bedside Glucose 122 mg/dL (74-106)
[2021-11-10 21:35] VITALS: BP 117/41; PULSE 59
[2021-11-10] MEDS: Atorvastatin Calcium 20 MG Tablet PO (21:37)
[2021-11-10] MEDS: Insulin Glargine-YFGN 100 UNIT/ML Pen 15 UNIT SC (21:38)
[2021-11-11] VITALS (8 sets, daily range): BP systolic 126–142; BP diastolic 42–55; PULSE 59–100; RESP 14–16; TEMP 36.3–37; O2SAT 95–96
[2021-11-11] MEDS: Enoxaparin 40 MG/0.4 ML Syringe SC (05:02)
[2021-11-11] MEDS: Senna/Docusate Sodium 1 Tablet PO ×2 (05:02→17:53)
[2021-11-11] MEDS: Levothyroxine 88 MCG Tablet PO (05:02)
[2021-11-11] MEDS: Clopidogrel Bisulfate 75 MG Tablet PO (05:02)
[2021-11-11] MEDS: Iron Polysaccharide Complex 150 MG CAPSULE PO (05:02)
[2021-11-11] MEDS: Pantoprazole Sodium 40 MG Tablet PO (05:02)
[2021-11-11] MEDS: Menthol/Lanolin/Calamine/Znox 113 GM Tube 1 APPLIC TOPICAL ×2 (05:03→17:53)
[2021-11-11] MEDS: Nystatin Powder 15gm Bottle 1 APPLIC TOPICAL ×2 (05:05→17:53)
[2021-11-11 06:25] LABS: Bedside Glucose 266 mg/dL (74-106)
[2021-11-11] MEDS: glipiZIDE 5 MG Tablet 2.5 MG PO (08:14)
[2021-11-11] MEDS: Potassium Chloride Oral Tablet 20 MEQ PO (08:15)
[2021-11-11] MEDS: Juven (unflavored) Packet 1 PACKET PO ×2 (08:15→17:52)
[2021-11-11] MEDS: metFORMIN HCl 1,000 MG Tablet 1000 MG PO ×2 (08:15→17:52)
[2021-11-11] MEDS: Insulin Lispro 100 UNIT/ML INSULN.PEN 7 UNIT SC ×2 (08:15→12:25)
[2021-11-11 10:10] LABS: Bedside Glucose 292 mg/dL (74-106)
[2021-11-11] MEDS: Acetaminophen 500 MG Tablet 1000 MG PO (10:42)
[2021-11-11 11:31] LABS: Bedside Glucose 147 mg/dL (74-106)
--- NOTE | 2021-11-11 14:13 | NURSING ---
Pt updated on Positive Staff member at this time.
--- NOTE | 2021-11-11 14:21 | WOUNDNOTE ---
wound photo: left lateral ankle
--- NOTE | 2021-11-11 14:23 | NURSING ---
Pt very lethargic checked Blood glucose and was 46 pt given orange juice and cookies. Once awoken pt able to drink and eat will recheck BS.
--- NOTE | 2021-11-11 14:23 | WOUNDNOTE ---
wound photo: left heel
[2021-11-11 14:30] LABS: Bedside Glucose 46 mg/dL (74-106)
[2021-11-11] MEDS: hydrALAZINE 50 MG Tablet PO (14:32)
[2021-11-11] MEDS: Metoprolol Tartrate 25 MG Tablet PO (14:32)
[2021-11-11 14:46] LABS: Bedside Glucose 77 mg/dL (74-106)
[2021-11-11 16:46] LABS: Bedside Glucose 137 mg/dL (74-106)
--- NOTE | 2021-11-11 17:10 | NURSING ---
Pt noted to have non-productive cough, fine crackles to bilateral bases of lungs, Temp 99.3 BP 167/68 Pulse still very lethargic. Dr. Ward updated N.O. for Resp. Panel, Covid Swab, Chest X-ray CBC and BMP. Dr. Ward updated on pt's Blood sugar this after noon per Dr. Ward Discontinue Humalog. Orders read back.
[2021-11-11 17:23] LABS: Absolute Lymphocyte Count 2.64 X10^3/uL (0.83-4.51); Absolute Neutrophil Count 8.6 X10^3/uL (2.0-7.7); Basophil# 0.05 X10^3/uL; Basophil% 0.4 % (0-1); Eosinophil# 0.11 X10^3/uL; Eosinophils% 0.9 % (0-5); Hematocrit 34.6 % (37-47); Hemoglobin 10.9 g/dL (12.0-15.0); Lymphocyte # 2.64 X10^3/ul (0.83-4.51); Lymphocyte % 21.5 % (19-41); Mean Corp Hgb Conc 31.5 g/dL (32-36); Mean Corpuscular Hgb 28.6 pg (27.0-32.0); Mean Corpuscular Volume 90.8 fL (81-99); Mean Platelet Vol. 11.2 fl (6.2-12.0); Monocyte# 0.78 X10^3/uL; Monocyte% 6.4 % (0-10); NRBC Flagged by Analyzer 0 % (0-5); Platelet Count 387 K/mm3 (150-450); RBC Distribution Width CV 14.7 % (11.6-14.6); RBC Distribution Width SD 49.5 fl (35.1-43.9); Red Blood Count 3.81 M/mm3 (4.2-5.4); White Blood Count 12.3 K/mm3 (4.4-11.0)
--- NOTE | 2021-11-11 17:25 | RAD_ITS ---
STUDY: X-RAY CHEST REASON FOR EXAM: Female, 86 years old. Cough TECHNIQUE: 2 views COMPARISON: 10/24/2021 FINDINGS: Cardiomediastinal silhouette is unremarkable. Costophrenic angles are sharp. Linear opacities are noted in the left lower lung. Lungs are hyperinflated but otherwise clear The trachea is midline. There is no pneumothorax. The bones are osteopenic. Multilevel thoracic spondylosis is seen.. RAD/Chest PA and Lateral IMPRESSION: Platelike atelectasis versus linear scars in the left lung base. COPD. Electronically Signed: Roberto Simmons MD at 18:01 EDT ,
[2021-11-11] MEDS: Losartan Potassium 50 MG Tablet PO (17:52)
[2021-11-11] MEDS: amLODIPine 5 MG Tablet PO (17:52)
[2021-11-11] MEDS: 0.9% Saline Lock 10 ML Syringe IV (17:56)
[2021-11-11 18:41] LABS: Anion Gap 9 (5-15); BUN 28 mg/dL (7-18); BUN/Creat Ratio 26.7 RATIO (10-20); Calcium,Total 9.4 mg/dL (8.5-10.1); Chloride 104 mmol/L (98-107); Creatinine, Serum 1.05 mg/dL (0.55-1.02); EST Glomerular Filtration Rate 53 mL/min (>60); Est Glom Filt Rate - Afr Amer 64 mL/min (>60); Estimated Creatinine Clearance 32.99 ml/min; Glucose 240 mg/dL (74-106); Potassium 4.6 mmol/L (3.5-5.1); Sodium Level 138 mmol/L (136-145)
[2021-11-11 21:25] LABS: Bedside Glucose 310 mg/dL (74-106)
[2021-11-11] MEDS: Atorvastatin Calcium 20 MG Tablet PO (21:43)
[2021-11-11] MEDS: Insulin Glargine-YFGN 100 UNIT/ML Pen 15 UNIT SC (21:44)
--- NOTE | 2021-11-11 21:51 | NURSING ---
Dr. Ward notified via telephone of chest xray results, negative covid test, and pending respiratory panel. New order received for incentive spirometer.
[2021-11-11] MEDS: traMADol 50 MG Tablet PO (22:09)
[2021-11-12] VITALS (7 sets, daily range): BP systolic 114–141; BP diastolic 42–53; PULSE 60–75; RESP 16; TEMP 36.5; O2SAT 99
[2021-11-12] MEDS: 0.9% Saline Lock 10 ML Syringe IV (05:19)
[2021-11-12] MEDS: Enoxaparin 40 MG/0.4 ML Syringe SC (05:20)
[2021-11-12] MEDS: Clopidogrel Bisulfate 75 MG Tablet PO (05:20)
[2021-11-12] MEDS: Iron Polysaccharide Complex 150 MG CAPSULE PO (05:20)
[2021-11-12] MEDS: Pantoprazole Sodium 40 MG Tablet PO (05:20)
[2021-11-12] MEDS: Levothyroxine 88 MCG Tablet PO (05:20)
[2021-11-12] MEDS: Senna/Docusate Sodium 1 Tablet PO (05:20)
[2021-11-12] MEDS: Metoprolol Tartrate 25 MG Tablet PO (05:26)
[2021-11-12] MEDS: hydrALAZINE 50 MG Tablet PO (05:27)
[2021-11-12] MEDS: Losartan Potassium 50 MG Tablet PO ×2 (05:27→17:34)
[2021-11-12] MEDS: Menthol/Lanolin/Calamine/Znox 113 GM Tube 1 APPLIC TOPICAL ×2 (05:27→17:34)
[2021-11-12] MEDS: Nystatin Powder 15gm Bottle 1 APPLIC TOPICAL ×2 (05:28→17:35)
[2021-11-12] MEDS: amLODIPine 5 MG Tablet PO ×2 (05:28→17:34)
[2021-11-12 05:39] LABS: Absolute Lymphocyte Count 2.98 X10^3/uL (0.83-4.51); Absolute Neutrophil Count 5.6 X10^3/uL (2.0-7.7); Basophil# 0.07 X10^3/uL; Basophil% 0.7 % (0-1); Eosinophil# 0.42 X10^3/uL; Eosinophils% 4.1 % (0-5); Hematocrit 34.7 % (37-47); Hemoglobin 10.8 g/dL (12.0-15.0); Lymphocyte # 2.98 X10^3/ul (0.83-4.51); Lymphocyte % 28.9 % (19-41); Mean Corp Hgb Conc 31.1 g/dL (32-36); Mean Corpuscular Hgb 28.1 pg (27.0-32.0); Mean Corpuscular Volume 90.1 fL (81-99); Mean Platelet Vol. 10.5 fl (6.2-12.0); Monocyte# 1.07 X10^3/uL; Monocyte% 10.4 % (0-10); NRBC Flagged by Analyzer 0 % (0-5); Neutrophil # 5.61 X10^3/uL (2.7-7.7); Neutrophil % 54.4 % (47-70); Platelet Count 387 K/mm3 (150-450); RBC Distribution Width CV 14.8 % (11.6-14.6); RBC Distribution Width SD 48.9 fl (35.1-43.9); Red Blood Count 3.85 M/mm3 (4.2-5.4); White Blood Count 10.3 K/mm3 (4.4-11.0)
[2021-11-12 06:11] LABS: Anion Gap 7 (5-15); BUN 32 mg/dL (7-18); BUN/Creat Ratio 33.6 RATIO (10-20); Calcium,Total 9.3 mg/dL (8.5-10.1); Chloride 103 mmol/L (98-107); Creatinine, Serum 0.95 mg/dL (0.55-1.02); EST Glomerular Filtration Rate 59 mL/min (>60); Est Glom Filt Rate - Afr Amer 72 mL/min (>60); Estimated Creatinine Clearance 36.47 ml/min; Glucose 172 mg/dL (74-106); Potassium 4.2 mmol/L (3.5-5.1); Sodium Level 138 mmol/L (136-145)
[2021-11-12 06:21] LABS: Bedside Glucose 184 mg/dL (74-106)
[2021-11-12] MEDS: metFORMIN HCl 1,000 MG Tablet 1000 MG PO ×2 (08:00→17:34)
[2021-11-12] MEDS: Potassium Chloride Oral Tablet 20 MEQ PO (08:00)
[2021-11-12] MEDS: glipiZIDE 5 MG Tablet 2.5 MG PO (08:01)
[2021-11-12] MEDS: Juven (unflavored) Packet 1 PACKET PO ×2 (08:01→17:34)
[2021-11-12 11:41] LABS: Bedside Glucose 239 mg/dL (74-106)
--- NOTE | 2021-11-12 11:48 | CASEMGMT ---
Social Work Insurance issued LCD 11/14, DC 11/15. Spoke with pt and confirmed DC plans to [facility] under [facility] for usp care. Pt confirmed. Left message with Preston at [facility]. Updated Rosaura at [facility]. PASRR completed. W/C transport scheduled through [facility] for 1300. Plan: DC to [facility], nonskilled, 11/15 THUAN IrahetaW
[2021-11-12] MEDS: Acetaminophen 500 MG Tablet 1000 MG PO (13:23)
[2021-11-12 16:01] LABS: Bedside Glucose 116 mg/dL (74-106)
--- NOTE | 2021-11-12 19:51 | PCM.DC.SUM ---
Providers Date of Admission: 10/28/21 Consultations 10/28/21 17:28 Consult: Podiatry Routine Consulting Provider: Pal Francisco Reason for Consult: s/p ORIF left ankle fracture. EMERGENT Consult: No MD Notified: Yes Date Notified: 10/29/21 Time Notified: 12:57 Method of Notification: Verbal Comments:: Dr. Tran quality control inspector heading for Dr. Francisco 11/10/21 08:16 Consult: Onc/Wound/reconsignment clerk Routine Comment: Reason For Visit: L FOOT & ANKLE INJURY/TRIMALLOLAR FRACTURE Diagnosis Discharge Diagnosis (1) Status post open reduction with internal fixation (ORIF) of fracture of ankle: Status: Acute Code(s): Z98.890 - Other specified postprocedural states; Z87.81 - Personal history of (healed) traumatic fracture Plan 86 year old female with below past medical history hospitalized for left closed trimalleolar fracture, under ORIF 10/26/[address] Francisco, admitted to TCU with debility, here for rehabilitation, strengthening, prior to discharge home to [facility]. Debility - PT/OT. Cognition - ST. Pain - Tylenol 1000mg q6h prn pain (1-3), Oxycodone 5mg q4h prn pain (4-10). Bowel - senna/colace 1 tablet bid, Dulcolax 10mg pr daily prn. Adult immunization - Administer pneumonia vaccine, covid19 vaccine, flu vaccine as appropriate. DVT prophylaxis - Lovenox 40mg sc daily. Left ankle fracture status post ORIF - Consult Dr. Francisco. Hypertension - Lisinopril 5mg daily, Amlodipine 5mg daily. Hyperlipidemia - Atorvastatin 20mg qhs. Stroke - Plavix 75mg daily. Iron deficiency anemia - Ferrex 150mg daily. Diabetes Mellitus II - Metformin 1000mg bid, Glipizide 2.5mg daily. Hypothyroidism - Levothyroxine 88mcg daily. GERD - Pantoprazole 40mg daily. Medications at Discharge Home Medications clopidogrel 75 mg tablet 75 mg PO DAILY Check with primary doctor 08/22/21 glipizide 5 mg tablet 2.5 mg PO DAILY Diabetes 08/22/21 atorvastatin 20 mg tablet 20 mg PO QHS Cholesterol 10/24/21 bisacodyl 10 mg rectal suppository 10 mg CA DAILY PRN Constipation 10/24/21 levothyroxine 88 mcg capsule 88 mcg PO DAILY Thyroid 10/24/21 metformin 1,000 mg tablet 1,000 mg PO BID Diabetes 10/24/21 pantoprazole 40 mg tablet,delayed release 40 mg PO DAILY GERD 10/24/21 lisinopril 5 mg tablet 5 mg PO DAILY BP 10/28/21 acetaminophen 500 mg tablet 1,000 mg PO Q6H PRN PRN Pain Score 1-3 #0 tabs 11/12/21 amlodipine 5 mg tablet 5 mg PO BID #0 tabs 11/12/21 arginine 7 gram-glutam 7 gram-CaHMB 1.5 [id number]-cg-min oral pwd pkt (Moris (with collagen)) 1 packet PO BIDCM #0 ea 11/12/21 hydralazine 50 mg tablet 50 mg PO TID #0 tabs 11/12/21 insulin glargine-yfgn 100 unit/mL (3 mL) subcutaneous pen 15 unit (0.15 mL) subcut QHS #0 mL 11/12/21 losartan 50 mg tablet 50 mg PO BID #0 tabs 11/12/21 menthol 0.44 %-zinc oxide 20.6 % topical ointment (Calmoseptine) 1 applic topical BID #0 grams 11/12/21 metoprolol tartrate 25 mg tablet 25 mg PO TID #0 tabs 11/12/21 nystatin 100,000 unit/gram topical powder (Nyamyc) 1 applic topical BID #0 grams 11/12/21 polysaccharide iron complex 150 mg iron capsule (Ferrex) 150 mg PO DAILY #0 caps 11/12/21 potassium chloride 20 mEq tablet,extended release(part/cryst) (Klor-Con M) 20 meq PO DAILYCM #0 tabs 11/12/21 sennosides 8.6 mg-docusate sodium 50 mg tablet (Stool Softener-Stimulant Laxative) 1 tab PO BID #0 tabs 11/12/21 tramadol 50 mg tablet 50 mg PO Q6H PRN PRN Pain Score 6-10 3 days #12 tabs 11/12/21 Hospital Course Operations - (ORIF left ankle fracture.) Procedures None Summary of Care Provided Minutes Spent on Discharge: 35 Hospital Course: ?86 year old female with below past medical history hospitalized for left closed trimalleolar fracture, under ORIF 10/26/[address] Francisco, admitted to TCU with debility, here for rehabilitation, strengthening, prior to discharge home to [facility]. Resident had difficult to control blood pressure, and glucose. CT abdomen/pelvis showed left adrenal adenoma. Dexamethasone suppression test positive with cortisol level 3.5. Consider repeating DST. 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 Consider treatment with Korlym or referral to Endocrine. Discharge to [facility] 11/15/2021, non-skilled. Physical Exam Const alert General Appearance: cooperative HEENT normocephalic Eyes PERRL and EOMs intact bilaterally Neck supple, no JVD and no carotid bruits Resp normal respiratory effort, normal air movement and clear to auscultation bilaterally Cardio regular rate and regular rhythm GI normal to inspection, nondistended, normoactive bowel sounds, non-tender and non-distended Extremity normal capillary refill General Extremity: Negative for edema Skin no rashes or lesions noted General Skin Exam: no breakdown Psych affect normal Appearance: appropriate Medical Records Data Medical Nutrition Assessment Dietitian: Malnutrition Criteria Met Start: 11/11/21 16:24 Freq: Status: Active Protocol: Document 11/11/21 16:[address] [facility] (Rec: 11/11/21 16:[address] [facility] [id number]) Nutrition Malnutrition Evidence of Malnutrition Exists Yes Malnutrition (moderate): Acute Illness/Injury Evidenced By Suboptimal Energy Intake ( Moderate),Weight Loss (Severe) Intake Problem Inadequate Oral Intake Status Inactive Problem Increased Nutrient Needs (specify) Etiology PROTEIN r/t skin status Signs/Symptoms as evidenced by surgical incision to L ankle and need for Moris bid Status Active Problem Clinical Problem Acute Disease or Injury Related Malnutrition Etiology related to dementia and recent issues w/ UTI and intermittent nausea/vomiting requiring IV fluids making it difficult to consume adequate nutrition to meet est nutritional needs Signs/Symptoms as evidenced by now R-<49% po intake at meals, need for IV fluids until November 06 and 9% wt loss since adm. Currently PO intake appears to be improving at meals. Status Active Problem Altered Nutrient-Related Laboratory Values Etiology related to diabetes Signs/Symptoms as evidenced by fluctuating gluc 64- >300 Status Active Problem Recommendation Dietitian Recommendations/Changes Will continue Consistent CHO/ 1600 daly/ Cardiac w/ 4 oz glucerna shake at meals Will continue Moris to bid w/ medpass and rec discontinue once surgical incision healed. Monitor need for adjustment in diet/supplements pending continued po intake/wt changes Weight / BMI Weight Weight: 79.152 kg Body Mass Index (BMI) 33.7 ABG / Lab / Microbiology Data Result Diagrams: 11/12/21 05:21 11/12/21 05:21 Laboratory: Laboratory Results - last 24 hr 11/11/21 21:16: POC Glucose 310 H 11/12/21 05:21: WBC 10.3, RBC 3.85 L, Hgb 10.8 L, Hct 34.7 L, MCV 90.1, MCH 28.1, MCHC 31.1 L, RDW Std Deviation 48.9 H, RDW Coeff of Suzy 14.8 H, Plt Count 387, MPV 10.5, Immature Gran % (Auto) 1.500 H, Neut % (Auto) 54.4, Lymph % (Auto) 28.9, [place] % (Auto) 10.4 H, Eos % (Auto) 4.1, Baso % (Auto) 0.7, Absolute Neuts (auto) 5.6, Absolute Lymphs (auto) 2.98, Nucleated RBC % 0 11/12/21 05:21: Sodium 138, Potassium 4.2, Chloride 103, Carbon Dioxide 28.0, Anion Gap 7, BUN 32 H, Creatinine 0.95, Estim Creat Clear Calc 36.47, Est GFR (MDRD) Af Amer 72, Est GFR (MDRD) Non-Af 59 L, BUN/Creatinine Ratio 33.6 H, Glucose 172 H, Calcium 9.3 11/12/21 06:12: POC Glucose 184 H 11/12/21 11:21: POC Glucose 239 H 11/12/21 15:51: POC Glucose 116 H Microbiology: Microbiology 11/11/21 18:37 Mucosa - Nasopharyngeal Respiratory Panel (PCR) - Final 11/11/21 18:00 Nasal Secretion SARS-CoV-2 Antigen (Rapid) - Final 11/09/21 10:14 Nasal Secretion SARS-CoV-2 Antigen (Rapid) - Final 11/07/21 18:39 Stool C. difficile DNA Amplification - Final 11/03/21 12:36 Urine, Catheterized Urine Culture - Final Presumptive E. coli 11/04/21 06:45 Nasal Secretion SARS-CoV-2 Antigen (Rapid) - Final D/C Instructions Discharge Diet: No restrictions Discharge Activity: Return to Normal Activity, May Shower and Use Walker Weight Bearing Status: Weight bearing as tolerated Call your doctor if you observe: Fever of 101 or Higher, Inability to urinate, Inability to have a bowel movement, Shortness of breath, Dizziness, Fainting spells, Swelling in the ankles, Chest pain and Uncontrolled pain Additional Instructions: Discharge to [facility] 11/15/2021, non-skilled. Please Follow Up With: Pal Francisco MD When: As scheduled. Meaningful Use Info Meaningful Use Diagnoses (Choose all that apply): None applicable Discharge Plan Admission Admit Date/Time: 10/28/21 15:20 Primary Reason for Your Visit: Debility. Attending Provider: Hemant Ward Chi Consulting Providers: Pal Francisco Instructions Additional Instructions / Restrictions: Discharge to [facility] 11/15/2021, non-skilled. Discharge Orders/Prescriptions Prescriptions: New acetaminophen 500 mg Tablet 1,000 mg PO Q6H PRN PRN (Reason: Pain Score 1-3) Qty: 0 0RF amlodipine 5 mg Tablet 5 mg PO BID Qty: 0 0RF hydralazine 50 mg Tablet 50 mg PO TID Qty: 0 0RF insulin glargine-yfgn 100 unit/mL (3 mL) Insulin Pen 15 unit subcut QHS Qty: 0 0RF polysaccharide iron complex [Ferrex 150] 150 mg iron Capsule 150 mg PO DAILY Qty: 0 0RF losartan 50 mg Tablet 50 mg PO BID Qty: 0 0RF menthol-zinc oxide [Calmoseptine] 0.44-20.6 % Ointment 1 applic topical BID Qty: 0 0RF Protocol: *Topical Application Instructions APPLICATION INSTRUCTIONS: Bilateral Buttock Moris (with collagen) 7-7-1.5 gram Powder In Packet 1 packet PO BIDCM Qty: 0 0RF sennosides-docusate sodium [Stool Softener-Stimulant Laxat] 8.6-50 mg Tablet 1 tab PO BID Qty: 0 0RF potassium chloride [Klor-Con M20] 20 mEq Tablet,Er Particles/Crystals 20 meq PO DAILYCM Qty: 0 0RF nystatin [Nyamyc] 100,000 unit/gram Powder 1 applic topical BID Qty: 0 0RF Protocol: *Topical Application Instructions APPLICATION INSTRUCTIONS: Apply to Groin and under breast metoprolol tartrate 25 mg Tablet 25 mg PO TID Qty: 0 0RF tramadol 50 mg Tablet 50 mg PO Q6H PRN PRN (Reason: Pain Score 6-10) 3 Days Qty: 12 0RF Continued clopidogrel 75 mg tablet 75 mg PO DAILY glipizide 5 mg tablet 2.5 mg PO DAILY atorvastatin 20 mg Tablet 20 mg PO QHS bisacodyl 10 mg Suppository 10 mg CA DAILY PRN (Reason: Constipation) pantoprazole 40 mg Tablet,Delayed Release (Dr/Ec) 40 mg PO DAILY metformin 1,000 mg Tablet 1,000 mg PO BID levothyroxine 88 mcg Capsule 88 mcg PO DAILY lisinopril 5 mg tablet 5 mg PO DAILY Discontinued meclizine 25 mg tablet 25 mg PO TID PRN (Reason: dizziness) Qty: 20 0RF ondansetron 4 mg tablet,disintegrating 4 mg PO Q8H PRN (Reason: nausea and vomiting) 3 Days 0RF metoclopramide HCl [Reglan] 5 mg Tablet 5 mg PO BID magnesium hydroxide [Milk of Magnesia] 400 mg/5 mL Suspension 30 ml PO DAILY PRN (Reason: Constipation) ferrous sulfate 325 mg (65 mg iron) Tablet 325 mg PO BID pioglitazone 30 mg Tablet 30 mg PO DAILY fluoxetine 20 mg Capsule 20 mg PO DAILY insulin glargine 100 unit/mL Cartridge 16 unit SUBCUT BREAKFAST oxycodone 5 mg Tablet 5 mg PO Q4H PRN PRN (Reason: pain (scale score 7-10)) 3 Days Qty: 12 0RF acetaminophen [Tylenol] 325 mg Tablet 650 mg PO Q6H PRN PRN (Reason: Pain Score 1-10/Temp > 100.7 F) Qty: 0 0RF amlodipine 5 mg tablet 5 mg PO DAILY enoxaparin 40 mg/0.4 mL syringe 40 mg subcut DAILY insulin lispro [Humalog KwikPen Insulin] 100 unit/mL insulin pen See Protocol subcut ACHS Protocol: 4. Sliding Scale Insulin High-Med Dosing Condition: 150-199 mg/dl = 2 units Condition: 200-259 mg/dl = 4 units Condition: 260-324 mg/dl = 6 units Condition: 325-374 mg/dl = 8 units Condition: 375-409 mg/dl = 10 units Condition: 410-449 mg/dl = 11 units Condition: Greater than 449 call physician Protocol Text: - Use for Total Daily Dose of Insulin 56-80 units - Patient who are insulin resistant or septic HIGH MEDIUM DOSING ALGORITHM Disposition Disposition (needs filled in before D/C Order can be placed): NonSkilled NH/Intermed Care
--- NOTE | 2021-11-12 20:03 | TREXTCAR_ITS ---
Diet Diet Order/Speech Therapy: 10/28/21 16:00 Diet: Consistent Carb - Calorie Controlled Food consistency:: Regular Liquid Consistency:: Regular/Thin Dietary Modifications:: Cardiac / Heart Healthy Type of Dietary Supplement:: Glucerna Shake Is pt able to select menu?: No Diet Comments: 4 oz w/ meals; ok to puree soups so 'no chunks' per res request How many daily calories?: 1600 calorie Routine Orders/Code Status Code Status: DNRCC Wound(s) Left Ankle: Wound Type: Surgical Incision LEFT HEEL: Wound Type: Pressure Injury Dressing Change: well padded dressing Therapies Weight Bearing: Weight bearing as tolerated Extremity Affected:: Bilateral Lower Physical Therapy: Eval and Treat Occupational Therapy: Eval and Treat Problem/Diagnosis (1) Status post open reduction with internal fixation (ORIF) of fracture of ankle: Status: Acute Code(s): Z98.890 - Other specified postprocedural states; Z87.81 - Personal history of (healed) traumatic fracture Plan 86 year old female with below past medical history hospitalized for left closed trimalleolar fracture, under ORIF 10/26/[address] Francisco, admitted to TCU with debility, here for rehabilitation, strengthening, prior to discharge home to [facility]. * Debility - PT/OT. * Cognition - ST. * Pain - Tylenol 1000mg q6h prn pain (1-3), Oxycodone 5mg q4h prn pain (4-10). * Bowel - senna/colace 1 tablet bid, Dulcolax 10mg pr daily prn. * Adult immunization - Administer pneumonia vaccine, covid19 vaccine, flu vaccine as appropriate. * DVT prophylaxis - Lovenox 40mg sc daily. * Left ankle fracture status post ORIF - Consult Dr. Francisco. * Hypertension - Lisinopril 5mg daily, Amlodipine 5mg daily. * Hyperlipidemia - Atorvastatin 20mg qhs. * Stroke - Plavix 75mg daily. * Iron deficiency anemia - Ferrex 150mg daily. * Diabetes Mellitus II - Metformin 1000mg bid, Glipizide 2.5mg daily. * Hypothyroidism - Levothyroxine 88mcg daily. * GERD - Pantoprazole 40mg daily. Allergies/Procedures Done in Hospital Allergies banana Allergy (Verified 11/02/21 08:15) Hives peanut butter Allergy (Uncoded 11/02/21 08:15) Hives Procedures: - (ORIF left ankle fracture.) Type of Care/Length of Stay Estimated LOS: More Than 30 Days Type of Care Needed: Intermediate Rehab Potential: Poor Prognosis: Poor Additional Orders/Day of Discharge Additional Orders: part B therapies Day of Discharge: 11/15/21 Dietary and Speech Recommendations Dietitian Recommendations/Changes: Will continue Consistent CHO/ 1600 daly/ Cardiac w/ 4 oz glucerna shake at meals Will continue Moris to bid w/ medpass and rec discontinue once surgical incision healed. Monitor need for adjustment in diet/supplements pending continued po intake/wt changes Follow Up Care Please Follow Up With: Pal Francisco MD Discharge Plan Admission Admit Date/Time: 10/28/21 15:20 Primary Reason for Your Visit: Debility. Attending Provider: Hemant Ward [employer] Providers: Pal Francisco Instructions Additional Instructions / Restrictions: Discharge to [facility] 11/15/2021, non-skilled. Discharge Orders/Prescriptions Prescriptions: New acetaminophen 500 mg Tablet 1,000 mg PO Q6H PRN PRN (Reason: Pain Score 1-3) Qty: 0 0RF amlodipine 5 mg Tablet 5 mg PO BID Qty: 0 0RF hydralazine 50 mg Tablet 50 mg PO TID Qty: 0 0RF insulin glargine-yfgn 100 unit/mL (3 mL) Insulin Pen 15 unit subcut QHS Qty: 0 0RF polysaccharide iron complex [Ferrex 150] 150 mg iron Capsule 150 mg PO DAILY Qty: 0 0RF losartan 50 mg Tablet 50 mg PO BID Qty: 0 0RF menthol-zinc oxide [Calmoseptine] 0.44-20.6 % Ointment 1 applic topical BID Qty: 0 0RF Protocol: *Topical Application Instructions APPLICATION INSTRUCTIONS: Bilateral Buttock Moris (with collagen) 7-7-1.5 gram Powder In Packet 1 packet PO BIDCM Qty: 0 0RF sennosides-docusate sodium [Stool Softener-Stimulant Laxat] 8.6-50 mg Tablet 1 tab PO BID Qty: 0 0RF potassium chloride [Klor-Con M20] 20 mEq Tablet,Er Particles/Crystals 20 meq PO DAILYCM Qty: 0 0RF nystatin [Nyamyc] 100,000 unit/gram Powder 1 applic topical BID Qty: 0 0RF Protocol: *Topical Application Instructions APPLICATION INSTRUCTIONS: Apply to Groin and under breast metoprolol tartrate 25 mg Tablet 25 mg PO TID Qty: 0 0RF tramadol 50 mg Tablet 50 mg PO Q6H PRN PRN (Reason: Pain Score 6-10) 3 Days Qty: 12 0RF Continued clopidogrel 75 mg tablet 75 mg PO DAILY glipizide 5 mg tablet 2.5 mg PO DAILY atorvastatin 20 mg Tablet 20 mg PO QHS bisacodyl 10 mg Suppository 10 mg VT DAILY PRN (Reason: Constipation) pantoprazole 40 mg Tablet,Delayed Release (Dr/Ec) 40 mg PO DAILY metformin 1,000 mg Tablet 1,000 mg PO BID levothyroxine 88 mcg Capsule 88 mcg PO DAILY lisinopril 5 mg tablet 5 mg PO DAILY Discontinued meclizine 25 mg tablet 25 mg PO TID PRN (Reason: dizziness) Qty: 20 0RF ondansetron 4 mg tablet,disintegrating 4 mg PO Q8H PRN (Reason: nausea and vomiting) 3 Days 0RF metoclopramide HCl [Reglan] 5 mg Tablet 5 mg PO BID magnesium hydroxide [Milk of Magnesia] 400 mg/5 mL Suspension 30 ml PO DAILY PRN (Reason: Constipation) ferrous sulfate 325 mg (65 mg iron) Tablet 325 mg PO BID pioglitazone 30 mg Tablet 30 mg PO DAILY fluoxetine 20 mg Capsule 20 mg PO DAILY insulin glargine 100 unit/mL Cartridge 16 unit SUBCUT BREAKFAST oxycodone 5 mg Tablet 5 mg PO Q4H PRN PRN (Reason: pain (scale score 7-10)) 3 Days Qty: 12 0RF acetaminophen [Tylenol] 325 mg Tablet 650 mg PO Q6H PRN PRN (Reason: Pain Score 1-10/Temp > 100.7 F) Qty: 0 0RF amlodipine 5 mg tablet 5 mg PO DAILY enoxaparin 40 mg/0.4 mL syringe 40 mg subcut DAILY insulin lispro [Humalog KwikPen Insulin] 100 unit/mL insulin pen See Protocol subcut ACHS Protocol: 4. Sliding Scale Insulin High-Med Dosing Condition: 150-199 mg/dl = 2 units Condition: 200-259 mg/dl = 4 units Condition: 260-324 mg/dl = 6 units Condition: 325-374 mg/dl = 8 units Condition: 375-409 mg/dl = 10 units Condition: 410-449 mg/dl = 11 units Condition: Greater than 449 call physician Protocol Text: - Use for Total Daily Dose of Insulin 56-80 units - Patient who are insulin resistant or septic HIGH MEDIUM DOSING ALGORITHM Disposition Disposition (needs filled in before D/C Order can be placed): NonSkilled NH/Intermed [facility]
[2021-11-12 21:06] LABS: Bedside Glucose 286 mg/dL (74-106)
[2021-11-12] MEDS: Insulin Glargine-YFGN 100 UNIT/ML Pen 15 UNIT SC (21:25)
[2021-11-12] MEDS: Atorvastatin Calcium 20 MG Tablet PO (21:25)
[2021-11-13] VITALS (8 sets, daily range): BP systolic 103–140; BP diastolic 34–59; PULSE 51–76; RESP 16–18; TEMP 36.2; O2SAT 98–99
[2021-11-13] MEDS: Menthol/Lanolin/Calamine/Znox 113 GM Tube 1 APPLIC TOPICAL ×2 (06:11→17:14)
[2021-11-13] MEDS: Nystatin Powder 15gm Bottle 1 APPLIC TOPICAL ×2 (06:11→17:14)
[2021-11-13] MEDS: Levothyroxine 88 MCG Tablet PO (06:12)
[2021-11-13] MEDS: Metoprolol Tartrate 25 MG Tablet PO ×2 (06:12→13:21)
[2021-11-13] MEDS: Enoxaparin 40 MG/0.4 ML Syringe SC (06:12)
[2021-11-13] MEDS: Pantoprazole Sodium 40 MG Tablet PO (06:12)
[2021-11-13] MEDS: Clopidogrel Bisulfate 75 MG Tablet PO (06:12)
[2021-11-13] MEDS: hydrALAZINE 50 MG Tablet PO ×2 (06:12→13:20)
[2021-11-13] MEDS: Iron Polysaccharide Complex 150 MG CAPSULE PO (06:12)
[2021-11-13] MEDS: Senna/Docusate Sodium 1 Tablet PO (06:13)
[2021-11-13] MEDS: 0.9% Saline Lock 10 ML Syringe IV ×2 (06:16→17:16)
[2021-11-13 06:20] LABS: Bedside Glucose 152 mg/dL (74-106)
[2021-11-13] MEDS: metFORMIN HCl 1,000 MG Tablet 1000 MG PO ×2 (08:12→17:13)
[2021-11-13] MEDS: glipiZIDE 5 MG Tablet 2.5 MG PO (08:12)
[2021-11-13] MEDS: Juven (unflavored) Packet 1 PACKET PO ×2 (08:12→17:13)
[2021-11-13] MEDS: Potassium Chloride Oral Tablet 20 MEQ PO (08:12)
[2021-11-13 10:35] LABS: Bedside Glucose 287 mg/dL (74-106)
[2021-11-13] MEDS: Acetaminophen 500 MG Tablet 1000 MG PO (15:25)
[2021-11-13 15:51] LABS: Bedside Glucose 95 mg/dL (74-106)
--- NOTE | 2021-11-13 16:27 | CASEMGMT ---
Social Work Note BIMS and PHQ9 completed for MDS assessment. Yee Ceja SENIOR PRODUCT ANALYST, NETWORKS COMPUTER CONSULTANT
[2021-11-13] MEDS: Insulin Glargine-YFGN 100 UNIT/ML Pen 15 UNIT SC (21:25)
[2021-11-13] MEDS: Atorvastatin Calcium 20 MG Tablet PO (21:26)
[2021-11-13 21:41] LABS: Bedside Glucose 244 mg/dL (74-106)
[2021-11-14] VITALS (8 sets, daily range): BP systolic 132–138; BP diastolic 50–64; PULSE 62–76; RESP 16; TEMP 36.8; O2SAT 96
[2021-11-14] MEDS: Nystatin Powder 15gm Bottle 1 APPLIC TOPICAL ×2 (06:11→18:21)
[2021-11-14] MEDS: Menthol/Lanolin/Calamine/Znox 113 GM Tube 1 APPLIC TOPICAL ×2 (06:11→18:20)
[2021-11-14] MEDS: 0.9% Saline Lock 10 ML Syringe IV (06:12)
[2021-11-14] MEDS: Enoxaparin 40 MG/0.4 ML Syringe SC (06:12)
[2021-11-14] MEDS: Pantoprazole Sodium 40 MG Tablet PO (06:13)
[2021-11-14] MEDS: Levothyroxine 88 MCG Tablet PO (06:13)
[2021-11-14] MEDS: Metoprolol Tartrate 25 MG Tablet PO ×3 (06:13→21:29)
[2021-11-14] MEDS: Clopidogrel Bisulfate 75 MG Tablet PO (06:14)
[2021-11-14] MEDS: hydrALAZINE 50 MG Tablet PO ×3 (06:14→21:26)
[2021-11-14] MEDS: Iron Polysaccharide Complex 150 MG CAPSULE PO (06:14)
[2021-11-14 06:20] LABS: Bedside Glucose 165 mg/dL (74-106)
[2021-11-14] MEDS: metFORMIN HCl 1,000 MG Tablet 1000 MG PO ×2 (08:32→18:22)
[2021-11-14] MEDS: Juven (unflavored) Packet 1 PACKET PO ×2 (08:32→18:20)
[2021-11-14] MEDS: Potassium Chloride Oral Tablet 20 MEQ PO (08:32)
[2021-11-14] MEDS: glipiZIDE 5 MG Tablet 2.5 MG PO (08:32)
[2021-11-14] MEDS: traMADol 50 MG Tablet PO (09:29)
[2021-11-14 10:46] LABS: Bedside Glucose 309 mg/dL (74-106)
[2021-11-14 16:41] LABS: Bedside Glucose 132 mg/dL (74-106)
[2021-11-14 21:11] LABS: Bedside Glucose 358 mg/dL (74-106)
[2021-11-14] MEDS: Atorvastatin Calcium 20 MG Tablet PO (21:26)
[2021-11-14] MEDS: Insulin Glargine-YFGN 100 UNIT/ML Pen 15 UNIT SC (21:30)
[2021-11-15 06:16] LABS: Bedside Glucose 131 mg/dL (74-106)
[2021-11-15 06:24] VITALS: BP 123/62; PULSE 55
[2021-11-15] MEDS: Menthol/Lanolin/Calamine/Znox 113 GM Tube 1 APPLIC TOPICAL (06:24)
[2021-11-15] MEDS: hydrALAZINE 50 MG Tablet PO (06:24)
[2021-11-15] MEDS: Iron Polysaccharide Complex 150 MG CAPSULE PO (06:25)
[2021-11-15 06:26] VITALS: BP 123/62; PULSE 55
[2021-11-15] MEDS: Enoxaparin 40 MG/0.4 ML Syringe SC (06:26)
[2021-11-15] MEDS: Metoprolol Tartrate 25 MG Tablet PO (06:26)
[2021-11-15] MEDS: Senna/Docusate Sodium 1 Tablet PO (06:27)
[2021-11-15] MEDS: Levothyroxine 88 MCG Tablet PO (06:27)
[2021-11-15] MEDS: Pantoprazole Sodium 40 MG Tablet PO (06:27)
[2021-11-15] MEDS: Clopidogrel Bisulfate 75 MG Tablet PO (06:28)
[2021-11-15] MEDS: Nystatin Powder 15gm Bottle 1 APPLIC TOPICAL (06:32)
[2021-11-15 06:35] VITALS: BP 123/62; PULSE 55; RESP 16; TEMP 36.6; O2SAT 95
[2021-11-15 06:36] VITALS: RESP 16; O2SAT 95
[2021-11-15] MEDS: Juven (unflavored) Packet 1 PACKET PO (09:38)
[2021-11-15] MEDS: metFORMIN HCl 1,000 MG Tablet 1000 MG PO (09:38)
[2021-11-15] MEDS: glipiZIDE 5 MG Tablet 2.5 MG PO (09:40)
[2021-11-15] MEDS: amLODIPine 5 MG Tablet PO (09:41)
[2021-11-15] MEDS: Losartan Potassium 50 MG Tablet PO (09:41)
[2021-11-15] MEDS: Potassium Chloride Oral Tablet 20 MEQ PO (09:41)
[2021-11-15 10:50] LABS: Bedside Glucose 253 mg/dL (74-106)
--- NOTE | 2021-11-15 12:58 | NURSING ---
Report called to [facility], spoke with Ivette
[2021-11-15 13:30] VITALS: BP 107/43; PULSE 50; RESP 18; TEMP 36.3; O2SAT 95
== END 2021-11-15 14:30 | disposition intermediate care facility (04) | DRG 560 ==
PROVIDERS: Admitting Provider Family Medicine Geriatric Medicine; Visit Provider Family Medicine Geriatric Medicine
DX: S82.852E Displaced trimalleolar fracture of left lower leg, subsequent encounter for open fracture type I or II with routine healing (principal); E24.9 Cushing's syndrome, unspecified; E11.649 Type 2 diabetes mellitus with hypoglycemia without coma; E11.9 Type 2 diabetes mellitus without complications; D50.9 Iron deficiency anemia, unspecified; D35.02 Benign neoplasm of left adrenal gland; F01.50 Vascular dementia, unspecified severity, without behavioral disturbance, psychotic disturbance, mood disturbance, and anxiety; J44.9 Chronic obstructive pulmonary disease, unspecified; Z79.4 Long term (current) use of insulin; E03.9 Hypothyroidism, unspecified; E78.5 Hyperlipidemia, unspecified; K21.9 Gastro-esophageal reflux disease without esophagitis; I10 Essential (primary) hypertension; W06.XXXD Fall from bed, subsequent encounter; E87.6 Hypokalemia; E66.9 Obesity, unspecified; Z87.891 Personal history of nicotine dependence; Z79.02 Long term (current) use of antithrombotics/antiplatelets; Z79.899 Other long term (current) drug therapy; Z79.890 Hormone replacement therapy; Z68.33 Body mass index [BMI] 33.0-33.9, adult; Z79.01 Long term (current) use of anticoagulants; F32.A Depression, unspecified; Z23 Encounter for immunization
CPT/HCPCS: 36415; 71046; 72110; 73610; 80048; 81001; 82533; 82947; 82962; 85025; 87086; 87088; 87186; 87426; 87493; 87633; 87811; 90732; 92507; 92523; 93005; 97110; 97116; 97162; 97166; 97530; 97535; 97802; G0009; J7030; A4216; J1610

== ENCOUNTER 2021-11-02 08:11 | Emergency (ER) | payer MEDICARE, MEDICAID, SELFPAY ==
[2021-11-02 08:12] VITALS: BP 129/77; PULSE 97; RESP 16; TEMP 36.6; O2SAT 99; BMI 31.8
--- NOTE | 2021-11-02 08:35 | CT_ITS ---
STUDY: CT ABDOMEN AND PELVIS WITHOUT CONTRAST REASON FOR EXAM: Female, 86 years old. Fall, back pain RADIATION DOSAGE (If Supplied By Facility): CTDIvol = ( 10.80 ) mGy, DLP = ( 571.79 ) mGycm TECHNIQUE: Transaxial images were obtained from the dome of the diaphragm to the symphysis pubis without oral contrast, and without intravenous contrast. Sagittal and coronal images were reconstructed. Individualized dose optimization techniques were used for this CT. COMPARISON: None. FINDINGS: Increased linear markings in the lung bases as well as the right middle lobe suggestive of scarring. Coronary artery calcification. Normal liver. Normal gallbladder and extrahepatic biliary system. Normal spleen. Normal pancreas. There is a small, circumscribed, smooth, low attenuation left adrenal mass, consistent with an adrenal adenoma. This measures 1.6 cm. Normal right adrenal gland. Normal right kidney. Normal left kidney. Normal visualized stomach. Normal small intestine. There are multiple colonic diverticula consistent with diverticulosis. The appendix is visualized and appears normal. There is diffuse atherosclerotic calcification of the abdominal aorta and major visceral branches, without a demonstrated aneurysm. Normal inferior vena cava. Normal retroperitoneum. Normal urinary bladder. There is absence of the uterus consistent with a prior hysterectomy. Normal abdominal wall. There are degenerative changes of the visualized lumbar spine. This is worse at the L5-S1 level with central disc herniation. 20% loss of height of the superior endplate of the L2 vertebrae. CT/Abdomen/Pelvis without Cont IMPRESSION: Small left adrenal adenoma. Sigmoid diverticulosis. Electronically Signed: Ton Rod MD at 9:20 EDT ,
--- NOTE | 2021-11-02 08:35 | CT_ITS ---
STUDY: CT BRAIN WITHOUT CONTRAST REASON FOR EXAM: Female, 86 years old. History of fall. Patient on blood thinners. RADIATION DOSAGE (If Supplied By Facility): CTDIvol = ( 44.99 ) mGy, DLP = ( 745.49 ) mGycm TECHNIQUE: Transaxial CT imaging of the brain was performed without administration of intravenous contrast material. Individualized dose optimization techniques were used for this CT. COMPARISON: Comparison is made with prior study dated 08/22/2021. FINDINGS: Normal soft tissue structures. Normal calvarium. There is moderate cerebral atrophy with widening of the extra-axial spaces and ventricular dilatation. There are areas of decreased attenuation within the white matter tracts of the supratentorial brain, consistent with microvascular disease changes. Stable encephalomalacia in the right posterior parietal region in keeping with prior ischemic insult. Stable small bilateral basal ganglia lacunar infarcts. Normal brainstem. Normal cerebellum. There is no intracranial hemorrhage. There are no findings of an acute ischemic infarction. Atherosclerotic calcification of the vertebral arteries and cavernous portions of the internal carotid arteries bilaterally. Normal visualized paranasal sinuses. CT/Brain/Head without Contrast IMPRESSION: Chronic involutional changes of the brain. Stable examination. Electronically Signed: Ton Rod MD at 9:14 EDT ,
--- NOTE | 2021-11-02 08:48 | EDS_ITS ---
HPI History of Present Illness Chief Complaint: Fall Informant: patient and other Onset/Context/Timing Onset: Today Narrative Narrative: Patient fell on the floor this morning in TCU. Patient states that she fell and immediately started calling for help. She denies loss of consciousness. She did reportedly have 1 episode of emesis. She is on Lovenox. She is currently in TCU for rehab following a trimalleolar left ankle fracture. She does have a history of dementia and a history of frequent falls. [facility] Medical History Carotid artery occlusion Cerebral infarct COPD (chronic obstructive pulmonary disease) Dementia Depression Diabetes GERD (gastroesophageal reflux disease) Hearing loss Kidney disease Obesity Thyroid disease UTI (urinary tract infection) Weakness Home Medications clopidogrel 75 mg PO DAILY 08/22/21 [History Last Taken Unknown] glipizide 2.5 mg PO DAILY 08/22/21 [History Last Taken Unknown] meclizine 25 mg PO TID PRN #20 tab 08/22/21 [Rx Last Taken Unknown] ondansetron 4 mg PO Q8H PRN 3 Days tab 08/22/21 [Rx Last Taken Unknown] atorvastatin 20 mg PO QHS 10/24/21 [History Last Taken Unknown] bisacodyl 10 mg NE DAILY PRN 10/24/21 [History Last Taken Unknown] ferrous sulfate 325 mg PO BID 10/24/21 [History Last Taken Unknown] fluoxetine 20 mg PO DAILY 10/24/21 [History Last Taken Unknown] insulin glargine 16 unit SUBCUT BREAKFAST 10/24/21 [History Last Taken Unknown] levothyroxine 88 mcg PO DAILY 10/24/21 [History Last Taken Unknown] magnesium hydroxide [Milk of Magnesia] 30 ml PO DAILY PRN 10/24/21 [History Last Taken Unknown] metformin 1,000 mg PO BID 10/24/21 [History Last Taken Unknown] metoclopramide HCl [Reglan] 5 mg PO BID 10/24/21 [History Last Taken Unknown] pantoprazole 40 mg PO DAILY 10/24/21 [History Last Taken Unknown] pioglitazone 30 mg PO DAILY 10/24/21 [History Last Taken Unknown] acetaminophen [Tylenol] 650 mg PO Q6H PRN PRN #0 tab 10/28/21 [Rx Last Taken Unknown] amlodipine 5 mg PO DAILY 10/28/21 [History Last Taken Unknown] enoxaparin 40 mg SUBCUT DAILY 10/28/21 [History Last Taken Unknown] insulin lispro [Humalog KwikPen Insulin] See Protocol SUBCUT ACHS 10/28/21 [History Last Taken Unknown] lisinopril 5 mg PO DAILY 10/28/21 [History Last Taken Unknown] oxycodone 5 mg PO Q4H PRN PRN 3 Days #12 tab 10/28/21 [Rx Last Taken Unknown] Allergy/AdvReac Type Severity Reaction Status Date / Time banana Allergy Hives Verified 11/02/21 08:15 peanut butter Allergy Hives Uncoded 11/02/21 08:15 Surgical History Status post open reduction with internal fixation (ORIF) of fracture of ankle Social History household members: none housing: assisted living facility Smoking Status: Former smoker alcohol intake: never substance use type: does not use ROS ROS ED Constitutional Constitutional ED: Denies chills or fever(s) Eyes Eyes: Denies change in vision ENT ENT ED: Denies sore throat Cardiovascular Cardiovascular: Denies chest pain Respiratory/Chest Respiratory/Chest: Denies cough or dyspnea Gastrointestinal Gastrointestinal: Reports nausea and vomiting; Denies abdominal pain Genitourinary Genitourinary ED: Denies dysuria Musculoskeletal Musculoskeletal: Reports back pain Integumentary Denies rash Neurologic Neurologic: Denies headache(s) or weakness Allergic/Immunologic Allergic/Immunologic ED: Denies urticaria EXAM Physical Exam Const Vital Signs: 11/02/21 08:12 11/02/21 08:27 Temperature 97.8 F Temperature Source Temporal Pulse Rate 97 Respiratory Rate 16 Respiratory Effort Normal Non-Labored Respiratory Depth Normal Respiratory Pattern Normal Blood Pressure 129/77 H Blood Pressure Mean 94 Pulse Ox 99 Oxygen Delivery Method Room Air Room Air Positive well nourished and well developed General Appearance ED: well developed HEENT Reports moist mucous membranes Eyes EOMs intact bilaterally Neck supple Neck Narrative: No C-spine tenderness Chest Wall inspection of chest normal and palpation of chest normal Resp normal respiratory effort and clear to auscultation bilaterally Cardio regular rate and regular rhythm GI normal to inspection, nondistended, normoactive bowel sounds and non-tender Palpation: soft Back/Spine Back/Spine Narrative: Tenderness in the lumbar paraspinal muscles bilaterally. No ecchymosis or abrasions. Extremity Extremity Narrative: Large bulky splint in place of the left lower extremity. Patient can wiggle toes and has good sensation distally. Neuro Neuro Narrative: No focal neurologic deficits noted. Sensorium / Orientation: alert Skin no rashes or lesions noted MDM MDM MDM Narrative Medical decision making narrative: Patient sent for CT scan of the head and flank. Radiography Diagnostic Testing: Clinical Impression(s) from Imaging Studies Abdomen/Pelvis CT 11/02/21 08:35 IMPRESSION: Small left adrenal adenoma. Sigmoid diverticulosis. Electronically Signed: Ton Rod MD at 9:20 EDT , Brain CT 11/02/21 08:35 IMPRESSION: Chronic involutional changes of the brain. Stable examination. Electronically Signed: Ton Rod MD at 9:14 EDT , Treatment and Re-Evaluation Narrative: CT scan of the head shows chronic involutional changes. CT of the flank reveals some chronic changes. Chronic arthritic changes are noted in the spine. No acute findings noted. Patient will be given a dose of oxycodone here for pain and discharged back to TCU for continued treatment. Discharge Plan Triage Chief Complaint: Fall ED Provider: Margarita Jamison Dx/Rx/DC Orders Clinical Impression: Fall, Closed head injury, Back contusion Instructions: ED Back Contusion, ED Head Injury (Adult) Prescriptions: No Action meclizine 25 mg tablet 25 mg PO TID PRN (Reason: dizziness) Qty: 20 RF: 0 ondansetron 4 mg tablet,disintegrating 4 mg PO Q8H PRN (Reason: nausea and vomiting) 3 Days RF: 0 clopidogrel 75 mg tablet 75 mg PO DAILY RF: 0 glipizide 5 mg tablet 2.5 mg PO DAILY RF: 0 atorvastatin 20 mg Tablet 20 mg PO QHS RF: 0 metoclopramide HCl [Reglan] 5 mg Tablet 5 mg PO BID RF: 0 magnesium hydroxide [Milk of Magnesia] 400 mg/5 mL Suspension 30 ml PO DAILY PRN (Reason: Constipation) RF: 0 bisacodyl 10 mg Suppository 10 mg NE DAILY PRN (Reason: Constipation) RF: 0 pantoprazole 40 mg Tablet,Delayed Release (Dr/Ec) 40 mg PO DAILY RF: 0 ferrous sulfate 325 mg (65 mg iron) Tablet 325 mg PO BID RF: 0 metformin 1,000 mg Tablet 1,000 mg PO BID RF: 0 pioglitazone 30 mg Tablet 30 mg PO DAILY RF: 0 fluoxetine 20 mg Capsule 20 mg PO DAILY RF: 0 insulin glargine 100 unit/mL Cartridge 16 unit SUBCUT BREAKFAST RF: 0 levothyroxine 88 mcg Capsule 88 mcg PO DAILY RF: 0 oxycodone 5 mg Tablet 5 mg PO Q4H PRN PRN (Reason: pain (scale score 7-10)) 3 Days Qty: 12 RF: 0 acetaminophen [Tylenol] 325 mg Tablet 650 mg PO Q6H PRN PRN (Reason: Pain Score 1-10/Temp > 100.7 F) Qty: 0 RF: 0 amlodipine 5 mg tablet 5 mg PO DAILY RF: 0 lisinopril 5 mg tablet 5 mg PO DAILY RF: 0 enoxaparin 40 mg/0.4 mL syringe 40 mg subcut DAILY RF: 0 insulin lispro [Humalog KwikPen Insulin] 100 unit/mL insulin pen See Protocol unit subcut ACHS RF: 0 Primary Care Provider: Care Physician,No Primary Referrals: Care Physician,No Primary [Primary Care Provider] - Disposition Disposition: Home, Self Care
[2021-11-02] MEDS: oxyCODONE 5 MG Tablet PO (09:56)
--- NOTE | 2021-11-02 10:04 | ED.RN ---
Pt given OxyIR pill. Swallowed without difficulty. When leaving the room to go back to TCU pt asked for emesis and vomited. Dr Jamison aware- new order for Zofran placed.
[2021-11-02] MEDS: Ondansetron ODT 4 MG Tablet PO (10:07)
--- NOTE | 2021-11-02 10:11 | ED.RN ---
report called to tcu
== END 2021-11-02 10:12 | disposition home or self-care (01) ==
PROVIDERS: Emergency Provider Emergency Medicine; Visit Provider Emergency Medicine
DX: S09.90XA Unspecified injury of head, initial encounter (principal); F03.90 Unspecified dementia, unspecified severity, without behavioral disturbance, psychotic disturbance, mood disturbance, and anxiety; J44.9 Chronic obstructive pulmonary disease, unspecified; E11.9 Type 2 diabetes mellitus without complications; Z79.4 Long term (current) use of insulin; W19.XXXA Unspecified fall, initial encounter; Y92.230 Patient room in hospital as the place of occurrence of the external cause; S30.0XXA Contusion of lower back and pelvis, initial encounter; Z86.73 Personal history of transient ischemic attack (TIA), and cerebral infarction without residual deficits; K21.9 Gastro-esophageal reflux disease without esophagitis; E66.9 Obesity, unspecified; Z87.440 Personal history of urinary (tract) infections; Z79.899 Other long term (current) drug therapy; S82.852D Displaced trimalleolar fracture of left lower leg, subsequent encounter for closed fracture with routine healing; Z91.81 History of falling; E07.9 Disorder of thyroid, unspecified; Z87.891 Personal history of nicotine dependence; Z68.31 Body mass index [BMI] 31.0-31.9, adult
CPT/HCPCS: 70450; 74176; 99283

== ENCOUNTER → 2021-11-03 | Outpatient (CLI) | payer MEDICARE, MEDICAID, SELFPAY ==
--- NOTE | 2021-11-03 10:36 | CT_ITS ---
STUDY: CT BRAIN WITHOUT CONTRAST REASON FOR EXAM: Female, 86 years old. HEAD INJURY. Nausea and vomiting. RADIATION DOSAGE (If Supplied By Facility): CTDIvol = ( 44.99 ) mGy, DLP = ( 745.49 ) mGycm TECHNIQUE: Transaxial CT imaging of the brain was performed without administration of intravenous contrast material. Individualized dose optimization techniques were used for this CT. COMPARISON: Comparison is made with prior examination dated 11/02/2021. FINDINGS: Normal soft tissue structures. Normal calvarium. There is moderate cerebral atrophy with widening of the extra-axial spaces and ventricular dilatation. There are areas of decreased attenuation within the white matter tracts of the supratentorial brain, consistent with microvascular disease changes. Stable ANCEF malacia in the right posterior parietal lobe. Stable small bilateral lacunar infarcts. Normal basal ganglia and thalami. Normal brainstem. Normal cerebellum. There is no intracranial hemorrhage. There are no findings of an acute ischemic infarction. Atherosclerotic calcification of the vertebral arteries and cavernous portions of the internal carotid arteries bilaterally. Normal visualized paranasal sinuses. CT/Brain/Head without Contrast IMPRESSION: Chronic involutional changes of the brain. Electronically Signed: Ton Rod MD at 12:09 EDT ,
== END | disposition home or self-care (01) ==
LOC: CT 10:33
PROVIDERS: Referring Provider Family Medicine Geriatric Medicine; Visit Provider Family Medicine Geriatric Medicine
DX: R11.2 Nausea with vomiting, unspecified (principal)
CPT/HCPCS: 70450

== ENCOUNTER → 2021-11-16 05:00 | Outpatient (REF) | payer MEDICARE, MEDICAID, SELFPAY ==
[2021-11-16 08:45] LABS: Absolute Lymphocyte Count 2.77 X10^3/uL (0.83-4.51); Absolute Neutrophil Count 6.8 X10^3/uL (2.0-7.7); Basophil# 0.06 X10^3/uL; Basophil% 0.5 % (0-1); Eosinophil# 0.32 X10^3/uL; Eosinophils% 2.9 % (0-5); Hematocrit 33.4 % (37-47); Hemoglobin 10.4 g/dL (12.0-15.0); Lymphocyte # 2.77 X10^3/ul (0.83-4.51); Mean Corp Hgb Conc 31.1 g/dL (32-36); Mean Corpuscular Hgb 28.7 pg (27.0-32.0); Mean Platelet Vol. 11.6 fl (6.2-12.0); Monocyte# 1.01 X10^3/uL; Monocyte% 9.1 % (0-10); NRBC Flagged by Analyzer 0 % (0-5); Neutrophil # 6.84 X10^3/uL (2.7-7.7); Neutrophil % 61.8 % (47-70); Platelet Count 371 K/mm3 (150-450); RBC Distribution Width CV 14.7 % (11.6-14.6); RBC Distribution Width SD 49.8 fl (35.1-43.9); Red Blood Count 3.63 M/mm3 (4.2-5.4); White Blood Count 11.1 K/mm3 (4.4-11.0)
[2021-11-16 08:56] LABS: Vitamin B12 258 pg/mL (211-911); Vitamin D,25 Hydroxy 26.9 ng/mL
[2021-11-16 09:10] LABS: Anion Gap 9 (5-15); BUN 36 mg/dL (7-18); Calcium,Total 9.2 mg/dL (8.5-10.1); Chloride 105 mmol/L (98-107); Creatinine, Serum 0.92 mg/dL (0.55-1.02); EST Glomerular Filtration Rate 62 mL/min (>60); Est Glom Filt Rate - Afr Amer 74 mL/min (>60); Glucose 140 mg/dL (74-106); Magnesium 1.9 mg/dL (1.6-2.6); Potassium 4.1 mmol/L (3.5-5.1); Sodium Level 139 mmol/L (136-145); Thyroid Stim Hormone (TSH) 1.66 uIU/mL (0.358-3.74)
[2021-11-16 09:25] LABS: Hemoglobin A1c 7.5 % (3.8-5.6)
== END ==
LOC: OLS.SW1020 05:00
PROVIDERS: PCP Internal Medicine; Visit Provider Internal Medicine
DX: E11.9 Type 2 diabetes mellitus without complications (principal); E55.9 Vitamin D deficiency, unspecified; R68.89 Other general symptoms and signs
CPT/HCPCS: 36415; 80048; 82306; 82607; 83036; 83735; 84443; 85025

== ENCOUNTER → 2021-11-18 04:00 | Outpatient (REF) | payer MEDICARE, MEDICAID, SELFPAY ==
[2021-11-18 08:10] LABS: Absolute Lymphocyte Count 2.52 X10^3/uL (0.83-4.51); Absolute Neutrophil Count 6.2 X10^3/uL (2.0-7.7); Basophil# 0.05 X10^3/uL; Basophil% 0.5 % (0-1); Eosinophil# 0.36 X10^3/uL; Eosinophils% 3.5 % (0-5); Hematocrit 32.7 % (37-47); Hemoglobin 10.2 g/dL (12.0-15.0); Lymphocyte # 2.52 X10^3/ul (0.83-4.51); Lymphocyte % 24.8 % (19-41); Mean Corp Hgb Conc 31.2 g/dL (32-36); Mean Corpuscular Hgb 28.4 pg (27.0-32.0); Mean Corpuscular Volume 91.1 fL (81-99); Mean Platelet Vol. 11.6 fl (6.2-12.0); Monocyte# 0.95 X10^3/uL; Monocyte% 9.4 % (0-10); NRBC Flagged by Analyzer 0 % (0-5); Neutrophil # 6.19 X10^3/uL (2.7-7.7); Neutrophil % 60.9 % (47-70); Platelet Count 338 K/mm3 (150-450); RBC Distribution Width CV 14.7 % (11.6-14.6); Red Blood Count 3.59 M/mm3 (4.2-5.4); White Blood Count 10.2 K/mm3 (4.4-11.0)
[2021-11-18 08:30] LABS: Anion Gap 8 (5-15); BUN 39 mg/dL (7-18); BUN/Creat Ratio 37.9 RATIO (10-20); Calcium,Total 9.1 mg/dL (8.5-10.1); Chloride 109 mmol/L (98-107); Creatinine, Serum 1.03 mg/dL (0.55-1.02); EST Glomerular Filtration Rate 54 mL/min (>60); Est Glom Filt Rate - Afr Amer 66 mL/min (>60); Glucose 126 mg/dL (74-106); Potassium 4.5 mmol/L (3.5-5.1); Sodium Level 141 mmol/L (136-145)
== END ==
LOC: OLS.SW1020 04:00
PROVIDERS: PCP Internal Medicine; Visit Provider Internal Medicine
DX: D64.9 Anemia, unspecified (principal); E11.9 Type 2 diabetes mellitus without complications; E78.5 Hyperlipidemia, unspecified; E03.9 Hypothyroidism, unspecified; R68.89 Other general symptoms and signs
CPT/HCPCS: 36415; 80048; 85025

== ENCOUNTER → 2021-11-25 05:00 | Outpatient (REF) | payer MEDICARE, MEDICAID, SELFPAY ==
[2021-11-25 08:29] LABS: Absolute Lymphocyte Count 1.63 X10^3/uL (0.83-4.51); Absolute Neutrophil Count 6.5 X10^3/uL (2.0-7.7); Basophil# 0.03 X10^3/uL; Basophil% 0.3 % (0-1); Eosinophils% 4.2 % (0-5); Hematocrit 31.2 % (37-47); Lymphocyte # 1.63 X10^3/ul (0.83-4.51); Lymphocyte % 17.1 % (19-41); Mean Corp Hgb Conc 32.1 g/dL (32-36); Mean Corpuscular Hgb 28.9 pg (27.0-32.0); Mean Corpuscular Volume 90.2 fL (81-99); Monocyte# 0.97 X10^3/uL; Monocyte% 10.2 % (0-10); NRBC Flagged by Analyzer 0 % (0-5); Neutrophil # 6.47 X10^3/uL (2.7-7.7); Neutrophil % 67.7 % (47-70); Platelet Count 261 K/mm3 (150-450); RBC Distribution Width CV 14.2 % (11.6-14.6); RBC Distribution Width SD 46.6 fl (35.1-43.9); Red Blood Count 3.46 M/mm3 (4.2-5.4); White Blood Count 9.6 K/mm3 (4.4-11.0)
[2021-11-25 08:44] LABS: Vitamin D,25 Hydroxy 18.4 ng/mL
[2021-11-25 08:46] LABS: Anion Gap 7 (5-15); BUN 30 mg/dL (7-18); BUN/Creat Ratio 28.6 RATIO (10-20); Calcium,Total 9.2 mg/dL (8.5-10.1); Chloride 108 mmol/L (98-107); Cholesterol 116 mg/dL (200); Creatinine, Serum 1.05 mg/dL (0.55-1.02); EST Glomerular Filtration Rate 53 mL/min (>60); Est Glom Filt Rate - Afr Amer 64 mL/min (>60); Glucose 178 mg/dL (74-106); High Density Lipoprotein 46 mg/dL; Potassium 4.4 mmol/L (3.5-5.1); Sodium Level 137 mmol/L (136-145); Triglycerides 73 mg/dL; Very Low Density Lipoprotein 15 mg/dL (5-40)
== END ==
LOC: OLS.SW1020 05:00
PROVIDERS: PCP Internal Medicine; Visit Provider Internal Medicine
DX: J44.9 Chronic obstructive pulmonary disease, unspecified (principal); E11.9 Type 2 diabetes mellitus without complications; E03.9 Hypothyroidism, unspecified; R68.89 Other general symptoms and signs; E55.9 Vitamin D deficiency, unspecified
CPT/HCPCS: 36415; 80048; 80061; 82306; 85025

== ENCOUNTER → 2021-12-02 | Outpatient (REF) | payer MEDICARE, MEDICAID, SELFPAY ==
[2021-12-02 09:25] LABS: Absolute Lymphocyte Count 2.46 X10^3/uL (0.83-4.51); Absolute Neutrophil Count 7.7 X10^3/uL (2.0-7.7); Basophil# 0.09 X10^3/uL; Basophil% 0.7 % (0-1); Eosinophil# 0.52 X10^3/uL; Eosinophils% 4.2 % (0-5); Hematocrit 32.6 % (37-47); Hemoglobin 10.3 g/dL (12.0-15.0); Lymphocyte # 2.46 X10^3/ul (0.83-4.51); Mean Corp Hgb Conc 31.6 g/dL (32-36); Mean Corpuscular Hgb 28.5 pg (27.0-32.0); Mean Corpuscular Volume 90.1 fL (81-99); Monocyte# 1.12 X10^3/uL; Monocyte% 9.1 % (0-10); NRBC Flagged by Analyzer 0 % (0-5); Neutrophil # 7.74 X10^3/uL (2.7-7.7); Neutrophil % 63.1 % (47-70); Platelet Count 351 K/mm3 (150-450); RBC Distribution Width CV 13.8 % (11.6-14.6); RBC Distribution Width SD 45.3 fl (35.1-43.9); Red Blood Count 3.62 M/mm3 (4.2-5.4); White Blood Count 12.3 K/mm3 (4.4-11.0)
[2021-12-02 09:38] LABS: Anion Gap 5 (5-15); BUN 20 mg/dL (7-18); Calcium,Total 9.9 mg/dL (8.5-10.1); Chloride 110 mmol/L (98-107); Creatinine, Serum 1.05 mg/dL (0.55-1.02); EST Glomerular Filtration Rate 53 mL/min (>60); Est Glom Filt Rate - Afr Amer 64 mL/min (>60); Glucose 236 mg/dL (74-106); Potassium 5.6 mmol/L (3.5-5.1); Sodium Level 137 mmol/L (136-145)
== END ==
LOC: OLS.SW500 07:15
PROVIDERS: PCP Internal Medicine; Visit Provider Internal Medicine
DX: R68.89 Other general symptoms and signs (principal); Z79.899 Other long term (current) drug therapy
CPT/HCPCS: 36415; 80048; 85025

== ENCOUNTER 2021-12-08 09:02 | Outpatient (RCR) | payer MEDICARE, MEDICAID, SELFPAY ==
[2021-12-08 09:29] VITALS: BP 97/41; PULSE 54; TEMP 35.3
--- NOTE | 2021-12-08 09:44 | HP.PCM_ITS ---
History of Present Illness Date of Service: 12/08/21 Progress of Wound: This 86-year old female seen with a left lateral ankle wound and left heel pressure wound 6 weeks out from left ankle ORIF. Patient denies any constitutional symptoms. Patient denies any chest pain calf pain shortness of breath. Patient resides in a senior living facility. Patient notes that she occasionally is ambulating in a cam boot with a walker with physical therapy. Patient notes pain to the wound site denies any new complaints. Patient has a DNR CC CODE STATUS. FORMERLY [facility], [facility]–1983 Medical History Carotid artery occlusion Cerebral infarct COPD (chronic obstructive pulmonary disease) Dementia Depression Diabetes GERD (gastroesophageal reflux disease) Hearing loss Kidney disease Obesity Thyroid disease UTI (urinary tract infection) Weakness Home Medications clopidogrel 75 mg tablet 75 mg PO DAILY Check with primary doctor 08/22/21 [History Last Taken Unknown] glipizide 5 mg tablet 2.5 mg PO DAILY Diabetes 08/22/21 [History Last Taken Unknown] atorvastatin 20 mg tablet 20 mg PO QHS Cholesterol 10/24/21 [History Last Taken Unknown] bisacodyl 10 mg rectal suppository 10 mg AL DAILY PRN Constipation 10/24/21 [History Last Taken Unknown] levothyroxine 88 mcg capsule 88 mcg PO DAILY Thyroid 10/24/21 [History Last Taken Unknown] metformin 1,000 mg tablet 1,000 mg PO BID Diabetes 10/24/21 [History Last Taken Unknown] pantoprazole 40 mg tablet,delayed release 40 mg PO DAILY GERD 10/24/21 [History Last Taken Unknown] lisinopril 5 mg tablet 5 mg PO DAILY BP 10/28/21 [History Last Taken Unknown] acetaminophen 500 mg tablet 1,000 mg PO Q6H PRN PRN Pain Score 1-3 #0 tabs 11/12/21 [Rx Last Taken Unknown] amlodipine 5 mg tablet 5 mg PO BID #0 tabs 11/12/21 [Rx Last Taken Unknown] arginine 7 gram-glutam 7 gram-CaHMB 1.5 [id number]-kfqrq-vj-min oral pwd pkt (Moris (with collagen)) 1 packet PO BIDCM #0 ea 11/12/21 [Rx Last Taken Unknown] hydralazine 50 mg tablet 50 mg PO TID #0 tabs 11/12/21 [Rx Last Taken Unknown] insulin glargine-yfgn 100 unit/mL (3 mL) subcutaneous pen 15 unit (0.15 mL) subcut QHS #0 mL 11/12/21 [Rx Last Taken Unknown] losartan 50 mg tablet 50 mg PO BID #0 tabs 11/12/21 [Rx Last Taken Unknown] menthol 0.44 %-zinc oxide 20.6 % topical ointment (Calmoseptine) 1 applic topical BID #0 grams 11/12/21 [Rx Last Taken Unknown] metoprolol tartrate 25 mg tablet 25 mg PO TID #0 tabs 11/12/21 [Rx Last Taken Unknown] nystatin 100,000 unit/gram topical powder (Nyamyc) 1 applic topical BID #0 grams 11/12/21 [Rx Last Taken Unknown] polysaccharide iron complex 150 mg iron capsule (Ferrex) 150 mg PO DAILY #0 caps 11/12/21 [Rx Last Taken Unknown] potassium chloride 20 mEq tablet,extended release(part/cryst) (Klor-Con M) 20 meq PO DAILYCM #0 tabs 11/12/21 [Rx Last Taken Unknown] sennosides 8.6 mg-docusate sodium 50 mg tablet (Stool Softener-Stimulant Laxative) 1 tab PO BID #0 tabs 11/12/21 [Rx Last Taken Unknown] tramadol 50 mg tablet 50 mg PO Q6H PRN PRN Pain Score 6-10 3 days #12 tabs 11/12/21 [Rx Last Taken Unknown] Allergy/AdvReac Type Severity Reaction Status Date / Time banana Allergy Hives Verified 11/02/21 08:15 peanut butter Allergy Hives Uncoded 11/02/21 08:15 Surgical History Status post open reduction with internal fixation (ORIF) of fracture of ankle Social History household members: none housing: assisted living facility Smoking Status: Former smoker alcohol intake: never substance use type: does not use ROS Constitutional Constitutional: Denies change in weight, chills or headache(s) Eyes Eyes: Denies change in vision, discongugate gaze or double vision ENT HEENT: Denies change in voice, epistaxis or facial pain Cardiovascular Cardiovascular: Denies abdominal edema, abdominal pain or chest pain at rest Respiratory/Chest Respiratory/Chest: Denies change in phlegm color, chest congestion or dyspnea on exertion Gastrointestinal Gastrointestinal: Reports belching; Denies bloating or cramping Vital Signs Vital Signs Vital Signs: 12/08/21 09:29 Temperature 95.5 F L Temperature Source Temporal Pulse Rate 54 L Blood Pressure 97/41 L Blood Pressure Mean 59 Blood Pressure Source Monitor Blood Pressure Position Semi-Fowlers Blood Pressure Location Left Arm Physical Exam Narrative Patient is alert oriented person place and time. Patient was transferred to the bed using two-person lift. Patient was nonambulatory upon examination today. Vascular: Dorsalis pedis posterior tibial pulses monophasic to left lower extremity. Digital hair growth absent. Atrophic skin changes noted. No gross edema. Neurologic: Light touch protective sensation intact to bilateral feet. Dermatologic: Full-thickness ulceration noted to the lateral ankle extending down to the level of hardware this is approximately 2 x 0.5 cm and probes directly to the lateral plate. Mild erythema to this area atrophic skin edges. No other signs of infection no evidence of purulence. Demarcating plantar heel ulceration noted. Musculoskeletal: No gross deformity noted no pain with calf squeeze muscular strength full. Debridement Note Debridement Note Post-Debridement Measurements and Additional Note: Post-Debridement Measurements/Treatment - Nurse 1 - General Ulcer Assessment Start: 12/08/21 09:12 Freq: Status: Active Protocol: .LOWEXT Activity Type Activity Date Activity User E-sign Co-sign Detail Recorded Client Recorded Date Recorded By Document 12/08/21 09:29 KR [id number] 12/08/21 09:31 FILIPE 12/08/21 09:29 - Today's Visit Information Type of service Initial Visit Arrival Mode Wheelchair Patient Identification Verified (Name & Yes ) Vital Signs Temperature (97.8 F-99.1 F) 95.5 F L Temperature Source Temporal Pulse Rate (60-100) 54 L Pulse Location Monitor Blood Pressure (90/60-120/80) 97/41 L Blood Pressure Mean 59 Source Monitor Position Semi-Fowlers Blood Pressure Location Left Arm History Since Last Visit- (Skip if this is Patient's initial visit) Have you changed medications since your No last visit? Any new allergies or adverse reactions No Had a fall/change in ADL's that may No increase risk of falls Signs or symptoms of abuse and/or No neglect since last visit Have you been in the hospital since your No last visit? Has dressing in place as prescribed No Has compression in place as prescribed N/A Has offloadiing in place as prescribed N/A Experienced any changes in pain level or No management Pain Scale: 0-10 Numeric Is Patient Pain Free? Yes WC - Nurse 1 - General Ulcer Measurement Start: 12/08/21 09:12 Freq: Status: Active Protocol: Activity Type Activity Date Activity User E-sign Co-sign Detail Recorded Client Recorded Date Recorded By Document 12/08/21 09:29 FILIPE [id number] 12/08/21 09:31 FILIPE 12/08/21 09:29 Wound Center Nurse 1 #1 Left lateral ankle -Current Size (cm) - Length 1 -Current Size (cm) - Width 0.5 -Current Size (cm) - Depth 0.3 -Total Square Cm 0.5 -Exudate Amt Small -Exudate Type Serosanguineous -Wound Margin Distinct, Outline Attached -Granulation Amt Small (1-33%) -Granulation Quality [place] -Structure Exposed Bone -Texture ([place]-wound Skin Appearance) Assessed, Scarring -Moisture ([place]-wound Skin Appearance) Assessed,Dry/ Scaly -Color ([place]-wound Skin Appearance) Assessed, Erythema -Temperature ([place]-wound Skin No Abnormality Appearance) (Pt Warm) -Tenderness on Palpation ([place]-wound No Skin Appearance) -Ulcer Cleansing Rinsed/ Irrigated with Saline -Foul Odor after Cleansing No -Anesthetic Used 5% Lidocaine Gel Assessment/Plan Assessment/Plan (1) Peripheral vascular disease, unspecified: CODE(S): I73.9 - Peripheral vascular disease, unspecified (2) 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 Radiographs were ordered to evaluate functionality of hardware as well as maintained reduction of the left ankle fracture. Recent vascular studies demonstrated a TBI of 0.39 on the left side with monophasic pulses. I have ordered vascular consult for additional work-up. Patient does have a DNR CC status at this time and her wounds appear to be noninfected infected. At this time her plan will likely be to prevent any infection and keep the patient comfortable and is functional as possible. Left ankle wound was excisionally debrided down to including level of subcutaneous tissue of all nonviable tissue using a 15 blade and pickups. Patient tolerated procedure well. Hemostasis obtained with light compression. Topical anesthesia used. Pre and postdebridement measurements document nursing notes. This wound does extend down the level plates of the wound was cultured at this time. I recommend daily dressing changes to the lateral ankle with antibiotic ointment consisting of Bactroban application and 4 x 4 with paper tape No dressing required to plantar heel wound. Patient's weightbearing status is as follows protected weightbearing in Cam walking boot to left lower extremity assisted by crutches with observation. P atient should continue physical therapy. While patient is not supine in her bed I recommend offloading the left heel wound with a Prevalon or PRAFO boot to prevent any additional deep tissue damage from pressure. Will continue to follow the patient weekly.
== END 2021-12-20 23:59 | disposition home or self-care (01) ==
LOC: WC 09:02
PROVIDERS: PCP Internal Medicine; Referring Provider Podiatrist; Visit Provider Podiatrist
DX: E11.622 Type 2 diabetes mellitus with other skin ulcer (principal); E11.51 Type 2 diabetes mellitus with diabetic peripheral angiopathy without gangrene; L97.324 Non-pressure chronic ulcer of left ankle with necrosis of bone; J44.9 Chronic obstructive pulmonary disease, unspecified; E07.9 Disorder of thyroid, unspecified; F32.A Depression, unspecified; E66.9 Obesity, unspecified; Z79.02 Long term (current) use of antithrombotics/antiplatelets; Z79.4 Long term (current) use of insulin; Z79.899 Other long term (current) drug therapy; Z87.891 Personal history of nicotine dependence; Z86.73 Personal history of transient ischemic attack (TIA), and cerebral infarction without residual deficits
CPT/HCPCS: 11042; 87070; 87075; 87205; 99213; G0463

== ENCOUNTER → 2021-12-15 | Outpatient (REF) | payer MEDICARE, MEDICAID, SELFPAY ==
[2021-12-15 09:03] LABS: Hemoglobin 10.5 g/dL (12.0-15.0); Mean Corp Hgb Conc 31.8 g/dL (32-36); Mean Corpuscular Hgb 28.7 pg (27.0-32.0); Mean Corpuscular Volume 90.2 fL (81-99); Mean Platelet Vol. 10.9 fl (6.2-12.0); Platelet Count 393 K/mm3 (150-450); RBC Distribution Width CV 13.7 % (11.6-14.6); RBC Distribution Width SD 45.1 fl (35.1-43.9); Red Blood Count 3.66 M/mm3 (4.2-5.4); White Blood Count 11.2 K/mm3 (4.4-11.0)
[2021-12-15 09:26] LABS: Anion Gap 7 (5-15); BUN 21 mg/dL (7-18); BUN/Creat Ratio 21.6 RATIO (10-20); Calcium,Total 9.7 mg/dL (8.5-10.1); Chloride 105 mmol/L (98-107); Creatinine, Serum 0.97 mg/dL (0.55-1.02); EST Glomerular Filtration Rate 58 mL/min (>60); Est Glom Filt Rate - Afr Amer 70 mL/min (>60); Glucose 158 mg/dL (74-106); Potassium 4.5 mmol/L (3.5-5.1); Sodium Level 139 mmol/L (136-145)
== END ==
LOC: OLS.SW500 05:00
PROVIDERS: PCP Internal Medicine; Visit Provider Internal Medicine
DX: E11.9 Type 2 diabetes mellitus without complications (principal); I10 Essential (primary) hypertension
CPT/HCPCS: 36415; 80048; 85027

== ENCOUNTER → 2021-12-22 | Outpatient (REF) | payer MEDICARE, MEDICAID, SELFPAY ==
[2021-12-22 09:33] LABS: Absolute Lymphocyte Count 2.73 X10^3/uL (0.83-4.51); Absolute Neutrophil Count 8.2 X10^3/uL (2.0-7.7); Basophil# 0.04 X10^3/uL; Basophil% 0.3 % (0-1); Eosinophil# 0.17 X10^3/uL; Eosinophils% 1.4 % (0-5); Hematocrit 33.1 % (37-47); Lymphocyte # 2.73 X10^3/ul (0.83-4.51); Lymphocyte % 22.6 % (19-41); Mean Corp Hgb Conc 30.2 g/dL (32-36); Mean Corpuscular Hgb 27.9 pg (27.0-32.0); Mean Corpuscular Volume 92.5 fL (81-99); Mean Platelet Vol. 11.1 fl (6.2-12.0); Monocyte# 0.81 X10^3/uL; Monocyte% 6.7 % (0-10); NRBC Flagged by Analyzer 0 % (0-5); Neutrophil # 8.23 X10^3/uL (2.7-7.7); Neutrophil % 68.3 % (47-70); Platelet Count 362 K/mm3 (150-450); RBC Distribution Width CV 14.3 % (11.6-14.6); RBC Distribution Width SD 48.1 fl (35.1-43.9); Red Blood Count 3.58 M/mm3 (4.2-5.4); White Blood Count 12.1 K/mm3 (4.4-11.0)
[2021-12-22 09:58] LABS: Anion Gap 9 (5-15); BUN 31 mg/dL (7-18); BUN/Creat Ratio 18.6 RATIO (10-20); Calcium,Total 9.8 mg/dL (8.5-10.1); Chloride 107 mmol/L (98-107); Creatinine, Serum 1.67 mg/dL (0.55-1.02); EST Glomerular Filtration Rate 31 mL/min (>60); Est Glom Filt Rate - Afr Amer 38 mL/min (>60); Glucose 182 mg/dL (74-106); Potassium 4.9 mmol/L (3.5-5.1); Sodium Level 139 mmol/L (136-145)
== END ==
LOC: OLS.SW500 04:00
PROVIDERS: PCP Internal Medicine; Visit Provider Internal Medicine
DX: I10 Essential (primary) hypertension (principal)
CPT/HCPCS: 36415; 80048; 85025

== ENCOUNTER 2021-12-27 08:46 | Emergency (ER) | payer MEDICARE, MEDICAID, SELFPAY ==
[2021-12-27 08:47] VITALS: BP 106/60; PULSE 74; RESP 18; TEMP 36.6; O2SAT 95; BMI 31.4
--- NOTE | 2021-12-27 09:04 | CT_ITS ---
STUDY: CT CERVICAL SPINE WITHOUT CONTRAST REASON FOR EXAM: Female, 86 years old. unwitnessed fall, contusion to right eye, no LOC. RADIATION DOSAGE (If Supplied By Facility): CTDIvol = ( 17.68 ) mGy, DLP = ( 307.88 ) mGycm TECHNIQUE: High resolution transaxial imaging was performed without contrast material. Sagittal and coronal images were reconstructed. Individualized dose optimization techniques were used for this CT. COMPARISON: None FINDINGS: Normal craniovertebral junction. Normal anterior atlantoaxial articulation. Normal odontoid process. Normal cervical lordosis. The bony structures are demineralized. No visualized acute fracture or compression deformity. No visualized significant central canal stenosis. Multilevel degenerative changes are present. Normal visualized soft tissue structures. CT/Spine Cervical without Contras IMPRESSION: Multilevel degenerative changes, as described above. Electronically Signed: Renzo Cruz MD at 10:35 EDT ,
--- NOTE | 2021-12-27 09:04 | CT_ITS ---
STUDY: CT BRAIN WITHOUT CONTRAST REASON FOR EXAM: Female, 86 years old. Fall injury RADIATION DOSAGE (If Supplied By Facility): CTDIvol = ( 44.99 ) mGy, DLP = ( 711.75 ) mGycm TECHNIQUE: Transaxial CT imaging of the brain was performed without administration of intravenous contrast material. Individualized dose optimization techniques were used for this CT. COMPARISON: NOVEMBER 03, 2021 FINDINGS: Mild to moderate right periorbital and frontal soft tissue swelling is present. No visualized skull fracture or hemorrhagic contusions of the brain parenchyma. Normal calvarium. There is moderate cerebral atrophy with widening of the extra-axial spaces and ventricular dilatation. There are areas of decreased attenuation within the white matter tracts of the supratentorial brain, consistent with microvascular disease changes. Moderate parenchymal loss in the superior aspect of the right parietal lobe is most likely due to an old infarct. Multiple old lacunar infarcts are present in the right basal ganglia. Normal brainstem. Normal cerebellum. There is no intracranial hemorrhage. There are no findings of an acute ischemic infarction. Normal visualized paranasal sinuses. CT/Brain/Head without Contrast IMPRESSION: 1. Mild to moderate right periorbital and frontal soft tissue swelling is present. No visualized skull fracture or hemorrhagic contusions of the brain parenchyma. Electronically Signed: Renzo Cruz MD at 10:49 EDT ,
--- NOTE | 2021-12-27 09:07 | EDS_ITS ---
HPI HPI - Fall History of Present Illness Chief Complaint: Fall Narrative Narrative: Patient presents for an ECF she was try to go the restroom, she tripped and hit her head she has a periorbital contusion on the right. No loss consciousness no neck pain she has no other injury. She is lucid and coherent, she arrives via EMS. [facility] Medical History Carotid artery occlusion Cerebral infarct COPD (chronic obstructive pulmonary disease) Dementia Depression Diabetes GERD (gastroesophageal reflux disease) Hearing loss Hyperlipemia Kidney disease Obesity Thyroid disease UTI (urinary tract infection) Weakness Home Medications clopidogrel 75 mg tablet 75 mg PO DAILY Check with primary doctor 08/22/21 [History Last Taken Unknown] glipizide 5 mg tablet 2.5 mg PO DAILY Diabetes 08/22/21 [History Last Taken Unknown] atorvastatin 20 mg tablet 20 mg PO QHS Cholesterol 10/24/21 [History Last Taken Unknown] bisacodyl 10 mg rectal suppository 10 mg SD DAILY PRN Constipation 10/24/21 [History Last Taken Unknown] levothyroxine 88 mcg capsule 88 mcg PO DAILY Thyroid 10/24/21 [History Last Taken Unknown] metformin 1,000 mg tablet 1,000 mg PO BID Diabetes 10/24/21 [History Last Taken Unknown] pantoprazole 40 mg tablet,delayed release 40 mg PO DAILY GERD 10/24/21 [History Last Taken Unknown] acetaminophen 500 mg tablet 1,000 mg PO Q6H PRN PRN Pain Score 1-3 #0 tabs 11/12/21 [Rx Last Taken Unknown] amlodipine 5 mg tablet 5 mg PO BID #0 tabs 11/12/21 [Rx Last Taken Unknown] hydralazine 50 mg tablet 50 mg PO TID #0 tabs 11/12/21 [Rx Last Taken Unknown] insulin glargine-yfgn 100 unit/mL (3 mL) subcutaneous pen 15 unit (0.15 mL) subcut QHS #0 mL 11/12/21 [Rx Last Taken Unknown] losartan 50 mg tablet 50 mg PO BID #0 tabs 11/12/21 [Rx Last Taken Unknown] metoprolol tartrate 25 mg tablet 25 mg PO TID #0 tabs 11/12/21 [Rx Last Taken Unknown] polysaccharide iron complex 150 mg iron capsule (Ferrex) 150 mg PO DAILY #0 caps 11/12/21 [Rx Last Taken Unknown] sennosides 8.6 mg-docusate sodium 50 mg tablet (Stool Softener-Stimulant Laxative) 1 tab PO BID #0 tabs 11/12/21 [Rx Last Taken Unknown] tramadol 50 mg tablet 50 mg PO Q6H PRN PRN Pain Score 6-10 3 days #12 tabs 11/12/21 [Rx Last Taken Unknown] ascorbic acid (vitamin C) 500 mg tablet (Vitamin C) 500 mg PO DAILY 12/08/21 [History Last Taken Unknown] dextrose 40 % oral gel (Glucose Gel) g PO PRN Hypoglycemia 12/08/21 [History Last Taken Unknown] guaifenesin 50 mg/5 mL oral liquid 100 mg PO Q4H PRN Cough 12/08/21 [History Last Taken Unknown] multivitamin,tx-minerals 1 tab PO DAILY 12/08/21 [History Last Taken Unknown] nystatin 100,000 unit/gram topical powder (Nyamyc) 1 applic topical TID 12/08/21 [History Last Taken Unknown] sodium phosphates 19 gram-7 gram/118 mL enema (Fleet Enema) 118 ml SD DAILY PRN constipation 12/08/21 [History Last Taken Unknown] Allergy/AdvReac Type Severity Reaction Status Date / Time banana Allergy Hives Verified 12/08/21 09:51 peanut Allergy Hives Verified 12/08/21 16:03 Penicillins Allergy Other Verified 12/27/21 08:54 Sulfa (Sulfonamide Allergy Swelling Verified 12/27/21 08:54 Antibiotics) Surgical History Status post open reduction with internal fixation (ORIF) of fracture of ankle Social History household members: none housing: assisted living facility Smoking Status: Former smoker alcohol intake: never substance use type: does not use ROS ROS ED ROS Narrative Social: Lives in [facility], usually uses a cane. Medications: Reviewed and the F paperwork Past medical history: Reviewed in the ECF paperwork she is on Plavix Review of systems General: Head injury but no loss of consciousness HEENT: Supra and periorbital contusion Neck: No neck pain Cardiovascular: Patient denies any chest pain or palpitations Chest wall: No chest wall contusions Respiratory: There is no shortness of breath GI: There is no nausea vomiting diarrhea or abdominal pain, no abdominal wall contusions Skin: No lacerations or abrasions Neurological: Patient has no memory loss, confusion, or any focal weakness Psychiatric: No recent behavioral changes Back: No back pain, no problems with ambulation Musculoskeletal: No extremity injury All other systems are reviewed and normal EXAM Physical Exam Narrative Exam Narrative: Physical exam General: Well nourished, Well developed, No Acute Distress Head: Normocephalic, periorbital contusion Eyes: Conjunctiva not pale, no conjunctivitis, full range of motion of the eyes without any pain ENT: There is a periorbital contusion, full range of motion of the eyes without any pain. Neck: Supple, Nontender, No lymphadenopathy, no C-spine tenderness Cardiovascular: Regular rate, Regular rhythm Respiratory: No distress, CTA bilaterally Abdomen: Soft, Nontender, Nondistended Back: Nontender, Normal Inspection. Negative for: CVA tenderness Extremities: Nontender, No edema, she has a chronic wound left ankle there is no obvious signs of infection Skin: Normal color, No rash Neurological: Alert, Normal Strength, Normal Sensation Psychological: Normal affect Const Vital Signs: 12/27/21 08:47 12/27/21 08:55 12/27/21 11:03 Temperature 97.9 F Temperature Source Oral Pulse Rate 74 64 Respiratory Rate 18 Respiratory Effort Normal Respiratory Depth Normal Respiratory Pattern Normal Blood Pressure 106/60 161/64 H Blood Pressure Mean 75 96 Pulse Ox 95 93 Oxygen Delivery Method Room Air Room Air MDM MDM Radiography Diagnostic Testing: Clinical Impression(s) from Imaging Studies Brain CT 12/27/21 09:04 IMPRESSION: 1. Mild to moderate right periorbital and frontal soft tissue swelling is present. No visualized skull fracture or hemorrhagic contusions of the brain parenchyma. Electronically Signed: Renzo Cruz MD at 10:49 EDT , Cervical Spine CT 12/27/21 09:04 IMPRESSION: Multilevel degenerative changes, as described above. Electronically Signed: Renzo Cruz MD at 10:35 EDT , Treatment and Re-Evaluation Narrative: Patient has a normal work-up. She will be discharged in stable condition back to her [facility] Discharge Plan Triage Chief Complaint: Fall ED Provider: Talha Johnson Dx/Rx/DC Orders Clinical Impression: Fall, Contusion of face, Concussion without loss of consciousness Instructions: After a Concussion, Bruises (Contusions) Prescriptions: No Action clopidogrel 75 mg tablet 75 mg PO DAILY glipizide 5 mg tablet 2.5 mg PO DAILY atorvastatin 20 mg Tablet 20 mg PO QHS bisacodyl 10 mg Suppository 10 mg SD DAILY PRN (Reason: Constipation) pantoprazole 40 mg Tablet,Delayed Release (Dr/Ec) 40 mg PO DAILY metformin 1,000 mg Tablet 1,000 mg PO BID levothyroxine 88 mcg Capsule 88 mcg PO DAILY acetaminophen 500 mg Tablet 1,000 mg PO Q6H PRN PRN (Reason: Pain Score 1-3) Qty: 0 0RF amlodipine 5 mg Tablet 5 mg PO BID Qty: 0 0RF hydralazine 50 mg Tablet 50 mg PO TID Qty: 0 0RF insulin glargine-yfgn 100 unit/mL (3 mL) Insulin Pen 15 unit subcut QHS Qty: 0 0RF polysaccharide iron complex [Ferrex 150] 150 mg iron Capsule 150 mg PO DAILY Qty: 0 0RF losartan 50 mg Tablet 50 mg PO BID Qty: 0 0RF sennosides-docusate sodium [Stool Softener-Stimulant Laxat] 8.6-50 mg Tablet 1 tab PO BID Qty: 0 0RF metoprolol tartrate 25 mg Tablet 25 mg PO TID Qty: 0 0RF tramadol 50 mg Tablet 50 mg PO Q6H PRN PRN (Reason: Pain Score 6-10) 3 Days Qty: 12 0RF dextrose [Glucose Gel] 40 % Gel PO PRN (Reason: Hypoglycemia) Rx Instructions: until symptoms of low blood sugar are controlled ascorbic acid (vitamin C) [Vitamin C] 500 mg Tablet 500 mg PO DAILY Fleet Enema 19-7 gram/118 mL Enema 118 ml SD DAILY PRN (Reason: constipation ) Theragran-M Tablet 1 tab PO DAILY guaifenesin 50 mg/5 mL Liquid 100 mg PO Q4H PRN (Reason: Cough) nystatin [Nyamyc] 100,000 unit/gram powder 1 applic topical TID Protocol: *Topical Application Instructions APPLICATION INSTRUCTIONS: Apply to Groin and under breast Primary Care Provider: Billie De Leon Referrals: Billie De Leon MD [Primary Care Provider] - 2 Days Disposition Disposition: Home, Self Care
[2021-12-27 11:03] VITALS: BP 161/64; PULSE 64; O2SAT 93
== END 2021-12-27 12:41 | disposition home or self-care (01) ==
PROVIDERS: Emergency Provider Emergency Medicine; PCP Internal Medicine; Visit Provider Emergency Medicine
DX: S00.11XA Contusion of right eyelid and periocular area, initial encounter (principal); F03.90 Unspecified dementia, unspecified severity, without behavioral disturbance, psychotic disturbance, mood disturbance, and anxiety; J44.9 Chronic obstructive pulmonary disease, unspecified; E11.9 Type 2 diabetes mellitus without complications; Z79.4 Long term (current) use of insulin; F32.A Depression, unspecified; K21.9 Gastro-esophageal reflux disease without esophagitis; E78.5 Hyperlipidemia, unspecified; Z87.440 Personal history of urinary (tract) infections; E07.9 Disorder of thyroid, unspecified; Z86.73 Personal history of transient ischemic attack (TIA), and cerebral infarction without residual deficits; W01.10XA Fall on same level from slipping, tripping and stumbling with subsequent striking against unspecified object, initial encounter; Z79.899 Other long term (current) drug therapy; Z79.02 Long term (current) use of antithrombotics/antiplatelets; Z87.891 Personal history of nicotine dependence; S06.0X0A Concussion without loss of consciousness, initial encounter
CPT/HCPCS: 70450; 72125; 99285

== ENCOUNTER → 2022-01-11 | Outpatient (REF) | payer MEDICARE, MEDICAID, SELFPAY ==
[2022-01-11 08:47] LABS: Absolute Neutrophil Count 6.5 X10^3/uL (2.0-7.7); Basophil# 0.09 X10^3/uL; Basophil% 0.8 % (0-1); Eosinophil# 0.37 X10^3/uL; Eosinophils% 3.3 % (0-5); Hemoglobin 10.6 g/dL (12.0-15.0); Mean Corp Hgb Conc 31.2 g/dL (32-36); Mean Corpuscular Hgb 27.6 pg (27.0-32.0); Mean Corpuscular Volume 88.5 fL (81-99); Mean Platelet Vol. 10.4 fl (6.2-12.0); Monocyte# 1.02 X10^3/uL; Monocyte% 9.2 % (0-10); NRBC Flagged by Analyzer 0 % (0-5); Neutrophil # 6.51 X10^3/uL (2.7-7.7); Neutrophil % 58.5 % (47-70); Platelet Count 406 K/mm3 (150-450); RBC Distribution Width CV 14.3 % (11.6-14.6); RBC Distribution Width SD 46.2 fl (35.1-43.9); Red Blood Count 3.84 M/mm3 (4.2-5.4); White Blood Count 11.1 K/mm3 (4.4-11.0)
[2022-01-11 09:07] LABS: Anion Gap 6 (5-15); BUN 12 mg/dL (7-18); BUN/Creat Ratio 11.4 RATIO (10-20); Calcium,Total 9.8 mg/dL (8.5-10.1); Chloride 103 mmol/L (98-107); Creatinine, Serum 1.05 mg/dL (0.55-1.02); EST Glomerular Filtration Rate 53 mL/min (>60); Est Glom Filt Rate - Afr Amer 64 mL/min (>60); Glucose 111 mg/dL (74-106); Potassium 3.9 mmol/L (3.5-5.1); Sodium Level 137 mmol/L (136-145)
== END ==
LOC: OLS.SW500 05:00
PROVIDERS: PCP Internal Medicine; Visit Provider Internal Medicine
DX: J44.9 Chronic obstructive pulmonary disease, unspecified (principal); I10 Essential (primary) hypertension
CPT/HCPCS: 36415; 80048; 85025

== ENCOUNTER 2022-01-13 15:19 | Inpatient (IN) | payer MEDICARE, MEDICAID, SELFPAY ==
--- NOTE | 2022-01-13 11:41 | NURSING ---
[address] DR DOYLE DIRECT ADMIT
[2022-01-13 11:58] VITALS: BMI 29.9
[2022-01-13 11:59] VITALS: BP 110/47; PULSE 51; RESP 18; TEMP 36.4; O2SAT 99
--- NOTE | 2022-01-13 12:53 | PCM.HP.STD ---
HPI - General General Date of Admission: 01/13/22 HPI Narrative FANG HERNDON, is a 86 F who presents with a wound and lateral left ankle infection. Patient underwent left ankle fracture ORIF on 11/11/2021. Initially close follow-up was performed and her incision had healed primarily. Patient did develop a pressure ulceration to her left plantar heel during the healing process. Patient was referred to the wound care center and seen on 12/08/2021. It was noted that at that time patient had developed an ulceration to her skin incision site with some drainage and redness to the site. Vascular studies were reviewed and demonstrated poor blood flow. Patient was placed on oral antibiotics referred to vascular surgery for further work-up and patient was to follow-up on a weekly basis. Patient has not been seen since 12/08/2021 by me due to lack of follow-up from her [facility] facility. It was noted that they were having transport issues. Patient was seen in my clinic today and was vomiting in the clinic and per the aid that came with the patient at that time the patient has been vomiting for the past 2-1/2 weeks. Patient was sent over to the hospital upon evaluation of the wound site with increased redness drainage, radiographic changes of bony erosions to the lateral fibula and systemic nausea and vomiting. [facility] Medical History Carotid artery occlusion Cerebral infarct COPD (chronic obstructive pulmonary disease) Dementia Depression Diabetes GERD (gastroesophageal reflux disease) Hearing loss Hyperlipemia Kidney disease Obesity Thyroid disease UTI (urinary tract infection) Weakness Home Medications clopidogrel 75 mg tablet 75 mg PO DAILY Check with primary doctor 08/22/21 [History Last Taken Unknown] atorvastatin 20 mg tablet 20 mg PO QHS Cholesterol 10/24/21 [History Last Taken Unknown] bisacodyl 10 mg rectal suppository 10 mg NM DAILY PRN Constipation 10/24/21 [History Last Taken Unknown] levothyroxine 88 mcg capsule 88 mcg PO DAILY Thyroid 10/24/21 [History Last Taken Unknown] pantoprazole 40 mg tablet,delayed release 40 mg PO DAILY GERD 10/24/21 [History Last Taken Unknown] acetaminophen 500 mg tablet 1,000 mg PO Q6H PRN PRN Pain Score 1-3 #0 tabs 11/12/21 [Rx Last Taken Unknown] amlodipine 5 mg tablet 5 mg PO BID #0 tabs 11/12/21 [Rx Last Taken Unknown] losartan 50 mg tablet 50 mg PO BID #0 tabs 11/12/21 [Rx Last Taken Unknown] polysaccharide iron complex 150 mg iron capsule (Ferrex) 150 mg PO DAILY #0 caps 11/12/21 [Rx Last Taken Unknown] ascorbic acid (vitamin C) 500 mg tablet (Vitamin C) 500 mg PO DAILY 12/08/21 [History Last Taken Unknown] guaifenesin 50 mg/5 mL oral liquid 100 mg PO Q4H PRN Cough 12/08/21 [History Last Taken Unknown] nystatin 100,000 unit/gram topical powder (Nyamyc) 1 applic topical TID 12/08/21 [History Last Taken Unknown] doxycycline monohydrate 100 mg capsule 100 mg PO BID 01/13/22 [History Last Taken Unknown] hydralazine 50 mg tablet 25 mg PO BID 01/13/22 [History Last Taken Unknown] insulin glargine-yfgn 100 unit/mL (3 mL) subcutaneous pen 18 unit subcut QHS 01/13/22 [History Last Taken Unknown] insulin lispro 100 unit/mL subcutaneous pen 5 unit subcut DAILY Check with primary doctor 01/13/22 [History Last Taken Unknown] insulin lispro 100 unit/mL subcutaneous pen See Protocol subcut ACHS 01/13/22 [History Last Taken Unknown] metoprolol tartrate 25 mg tablet 12.5 mg PO BID 01/13/22 [History Last Taken Unknown] sennosides 8.6 mg-docusate sodium 50 mg tablet (Stool Softener-Stimulant Laxative) 1 tab PO Q6H PRN PRN Constipation 01/13/22 [History Last Taken Unknown] tramadol 50 mg tablet 50 mg PO Q8H PRN PRN Pain Score 1-10 01/13/22 [History Last Taken Unknown] Allergy/AdvReac Type Severity Reaction Status Date / Time banana Allergy Hives Verified 12/08/21 09:51 peanut Allergy Hives Verified 12/08/21 16:03 Penicillins Allergy Other Verified 12/27/21 08:54 Sulfa (Sulfonamide Allergy Swelling Verified 12/27/21 08:54 Antibiotics) Surgical History Status post open reduction with internal fixation (ORIF) of fracture of ankle Social History household members: none housing: assisted living facility Smoking Status: Former smoker alcohol intake: never substance use type: does not use ROS Constitutional Constitutional: Denies daytime sleepiness, difficulty sleeping or night sweats Eyes Eyes: Denies blind spots, bloody eye or blurry vision ENT HEENT: Denies dental pain, disequillibrium or halitosis Cardiovascular Cardiovascular: Reports abdominal pain, nausea and pedal edema; Denies claudication Respiratory/Chest Respiratory/Chest: Reports dyspnea on exertion; Denies chest congestion or chest tightness Vital Signs Vital Signs Vital Signs: 01/13/22 11:59 01/13/22 11:58 Temperature 97.6 F L Temperature Source Temporal Pulse Rate 51 L Respiratory Rate 18 Respiratory Effort Normal Respiratory Depth Normal Respiratory Pattern Normal Blood Pressure 110/47 L Blood Pressure Mean 68 Blood Pressure Source Monitor Blood Pressure Position Semi-Fowlers Blood Pressure Location Right Arm Pulse Ox 99 Oxygen Delivery Method Room Air Room Air Weight Weight: 76.657 kg Body Mass Index (BMI) 29.9 Physical Exam Narrative Patient is confused, responsive to verbal and physical stimuli. Patient oriented to person and place. Vascular: Atrophic skin changes noted bilaterally diminished dorsalis pedis posterior tibial pulses. Bitting edema noted to the lateral left ankle. Focal increase in warmth to lateral left ankle. Neurologic: Light touch protective sensation absent to bilateral feet. No evidence of clonus or hyperreflexia. Dermatologic: Full-thickness wound noted to the inferior aspect of the incision down to the level of fibular plate second proximal wound noted along the proximal aspect of the incision this is new. These wounds communicate. Mild purulent drainage from site. Periwound erythema edema and warmth noted. No evidence of fluctuance or crepitus. Dry stable eschar noted to the plantar heel on the left lower extremity. No underlying bogginess fluctuance crepitus, Musculoskeletal: Diffuse pain to left ankle focused over the lateral ankle with guarding to ankle joint range of motion. No pain with calf squeeze or palpation of popliteal fossa. Assessment & Plan Assessment/Plan (1) Non-pressure chronic ulcer of left ankle with fat layer exposed: PLAN: Patient was evaluated in my office. Radiographs were taken hardware was noted to be intact however there is concern for possible Nacho's abscess formation into the fibula at the site of wound formation. No evidence of soft tissue emphysema or abscess. Vital signs reviewed, inflammatory labs basic lab work ordered. Including urinalysis and chest x-ray to rule out any other possible source of infection. Consulted internal medicine for medical management with regards to diabetes. Consulted infectious disease due to left ankle infection. Consulted vascular surgery due to poor healing of the left lateral ankle wound in setting of peripheral arterial disease. Patient was evaluated by them on 12/21/2021 at which time the plan to pursue conservative treatment due to her poor health status and wound improvement noted at that time. Patient was lost to follow-up due to transportation issues from the [facility] facility. This complicated treatment as patient has had a delayed healing wound down to the level of her hardware to the lateral ankle on the left side which is developed infection that is possibly causing systemic illness. Patient was sent to the hospital to receive IV antibiotics and additional work-up to rule out any other sources of possible infection. Wound to the lateral ankle was cultured with a swab cultures. Patient was started on IV vancomycin and clindamycin due to penicillin allergy will defer antibiotic management to infectious disease. Patient will maintain a nonweightbearing status to her left lower extremity. Patient receiving 5000 units of heparin twice daily for DVT prophylaxis. Patient will have SCDs on the right lower extremity. Plan at this time does not include any hardware removal, but goal is to clear any infection with IV antibiotics, then DC back to her nursing facility. Wound currently is dressed with antibiotic ointment DSD and Kerlix. Patient should have heel offloading pads to bilateral heels. (2) Other specified peripheral vascular diseases: (3) Cellulitis and abscess of left lower extremity: (4) Osteomyelitis of left ankle:
[2022-01-13] MEDS: 0.9% Normal Saline 1,000 ML 100 ML IV (13:17)
[2022-01-13] MEDS: 0.9% Saline Lock 10 ML Syringe IV (13:17)
[2022-01-13 13:31] LABS: Absolute Lymphocyte Count 2.38 X10^3/uL (0.83-4.51); Absolute Neutrophil Count 13.4 X10^3/uL (2.0-7.7); Basophil# 0.11 X10^3/uL; Basophil% 0.6 % (0-1); Eosinophil# 0.13 X10^3/uL; Eosinophils% 0.8 % (0-5); Hematocrit 34.7 % (37-47); Hemoglobin 10.8 g/dL (12.0-15.0); Lymphocyte # 2.38 X10^3/ul (0.83-4.51); Lymphocyte % 13.8 % (19-41); Mean Corp Hgb Conc 31.1 g/dL (32-36); Mean Corpuscular Hgb 27.7 pg (27.0-32.0); Mean Platelet Vol. 10.3 fl (6.2-12.0); Monocyte# 0.65 X10^3/uL; Monocyte% 3.8 % (0-10); NRBC Flagged by Analyzer 0 % (0-5); Neutrophil # 13.44 X10^3/uL (2.7-7.7); Platelet Count 474 K/mm3 (150-450); RBC Distribution Width CV 14.5 % (11.6-14.6); RBC Distribution Width SD 46.3 fl (35.1-43.9); White Blood Count 17.2 K/mm3 (4.4-11.0)
[2022-01-13 13:34] LABS: Erythrocyte Sedimentation Rate 98 mm/hr (0-30)
--- NOTE | 2022-01-13 13:37 | WOUNDNOTE ---
wound photo: left lateral ankle
--- NOTE | 2022-01-13 13:38 | WOUNDNOTE ---
wound photo: left heel
--- NOTE | 2022-01-13 13:40 | PCM.PN.HOSP ---
Subjective Subjective Patient is an 86 y/o female with a PMh as outlined who was admitted to the service of podiatry for a wound and left lateral ankle infection. She had had left ankle fracture open reduction and internal fixation on 11/11/2021 and subsequently developed a pressure ulcer on the left plantar heel during the healing process. She had been following up at the wound care when he returns noted that she also had an ulceration to the skin incision site with some drainage and redness. Vascular studies done on outpatient basis showed poor blood flow. She was started on oral antibiotics and was due to follow-up but defaulted as her senior living was having transport issues. She went to see podiatry on 01/13/2022 when she complained of vomiting which have been going on for about 2 and half weeks. Was also noticed that the right side had increased redness and drainage and imaging done showed radiographic changes of bony erosion to the lateral fibula. She was therefore admitted to the podiatry service and hospitalist service consulted for medical management. Objective Data Objective Data Vital Signs: Vital Signs Temp Pulse Resp BP Pulse Ox O2 Del Method 97.6 F L 51 L 18 110/47 L 99 Room Air 01/13/22 11:59 01/13/22 11:59 01/13/22 11:59 01/13/22 11:59 01/13/22 11:59 01/13/22 11:59 Oxygen Delivery Method Room Air Weight: 169 lb Body Mass Index (BMI) 29.9 Lab / Micro Data Result Diagrams: 01/14/22 05:00 01/14/22 05:00 Labs: Laboratory Results - last 24 hr 01/13/22 13:05: WBC 17.2 H, RBC 3.90 L, Hgb 10.8 L, Hct 34.7 L, MCV 89.0, MCH 27.7, MCHC 31.1 L, RDW Std Deviation 46.3 H, RDW Coeff of Suzy 14.5, Plt Count 474 H, MPV 10.3, Immature Gran % (Auto) 3.000 H, Neut % (Auto) 78.0 H, Lymph % (Auto) 13.8 L, [place] % (Auto) 3.8, Eos % (Auto) 0.8, Baso % (Auto) 0.6, Absolute Neuts (auto) 13.4 H, Absolute Lymphs (auto) 2.38, Nucleated RBC % 0, ESR 98 H Physical Exam Const alert and no apparent distress Constitutional Narrative: confused Orientation / Consciousness: confused HEENT head/scalp atraumatic and moist oral mucous membranes Head and Scalp: normocephalic Mouth: oral and palatal mucosa normal Eyes PERRL, EOMs intact bilaterally and conjunctivae normal Neck no lymphadenopathy and supple Resp normal respiratory effort, no retractions, no use of accessory muscles and clear to auscultation bilaterally Cardio regular rate, regular rhythm, S1 normal heart sound, S2 normal heart sound and no murmurs GI normal to inspection, nondistended, normoactive bowel sounds, soft to palpation, non-tender and non-distended Skin Skin Narrative: left foot and ankle bandaged Neuro CN's II-XII intact bilaterally and moves all extremities Neuro Narrative: confused Sensorium / Orientation: awake Psych Psych Narrative: confused Assessment & Plan Assessment/Plan (1) Cellulitis and abscess of left lower extremity: PLAN: Plan #CEllulitis of hte left ankle with chronic ulceration admitted to the service of podiatry management as per podiatry on IV vancomycin and IV cefepime as well as IV clindamycin ID consulted #JARRETT: Cr is 1.54, with baseline being 0.91. Likely pre-renal due to her nausea and vomiting. Hydrate gently with IVF and trend Cr. #Type 2 diabetes mellitus: on lantus 18 units qhs. ISS. Accuchecks ACHS #Hypothyroidism: Synthroid #Hyperlipidemia: On statin #Hypertension: On amlodipine, losartan as well as metoprolol #History of stroke: On Plavix and statin #History of medications anemia: On oral iron supplements. #GERD: on PPI DVT prophylaxis: as per primary team; on heparin Thank you for the courtesy of the consult. Please consult hospitalist team with any questions. Charges/Coding Visit Charges Inpatient E&M: 04866 Subs Hosp L2
[2022-01-13 13:59] LABS: ALB/GLOB Ratio 0.5 RATIO (0.9-2.4); AST(SGOT) 29 U/L (15-37); Alanine Aminotransfer ALT/SGPT 42 U/L (13-56); Albumin, Serum 2.5 g/dL (3.2-5.0); Alkaline Phosphatase 101 U/L (45-117); Anion Gap 5 (5-15); BUN 19 mg/dL (7-18); BUN/Creat Ratio 12.3 RATIO (10-20); Calcium,Total 9.1 mg/dL (8.5-10.1); Chloride 106 mmol/L (98-107); Creatinine, Serum 1.54 mg/dL (0.55-1.02); EST Glomerular Filtration Rate 34 mL/min (>60); Est Glom Filt Rate - Afr Amer 41 mL/min (>60); Estimated Creatinine Clearance 22.49 ml/min; Globulin 5.1 g/dL (2.2-4.2); Glucose 180 mg/dL (74-106); Potassium 4.3 mmol/L (3.5-5.1); Protein, Total 7.6 g/dL (6.4-8.2); Sodium Level 136 mmol/L (136-145)
--- NOTE | 2022-01-13 14:23 | PCM.CONS.GEN ---
Assessment & Plan Assessment/Plan (1) Osteomyelitis of left ankle: PLAN: L ankle osteo with hardware involvement s.p ORIF 10/2021. Cxs of ankle being sent. Pt tolerated cefazolin during OR 10/2021. Will cover empirically with vanc/cefepime. Will follow, thank you (2) Diabetes mellitus: (3) Status post open reduction with internal fixation (ORIF) of fracture of ankle: HPI Consult Data Date of Consult: 01/13/22 HPI Narrative Reason for Consultation: hardware infection HPI Narrative: FANG HERNDON, is a 86 F who had L ankle ORIF 11/11/21 after fracture. Developed ulcer, seen in wound clinic 12/08. Lives at [facility] and was unable followup until this AM, was having n/v, pain in ankle, worsening redness/drainage with purulence. Sent to hospital, admitted by Dr. Francisco. Denies fever or chills. Full ROS performed and neg except as noted above. [facility] Medical History Carotid artery occlusion Cerebral infarct COPD (chronic obstructive pulmonary disease) Dementia Depression Diabetes GERD (gastroesophageal reflux disease) Hearing loss Hyperlipemia Kidney disease Obesity Thyroid disease UTI (urinary tract infection) Weakness Home Medications clopidogrel 75 mg tablet 75 mg PO DAILY Check with primary doctor 08/22/21 [History Last Taken Unknown] atorvastatin 20 mg tablet 20 mg PO QHS Cholesterol 10/24/21 [History Last Taken Unknown] bisacodyl 10 mg rectal suppository 10 mg MT DAILY PRN Constipation 10/24/21 [History Last Taken Unknown] levothyroxine 88 mcg capsule 88 mcg PO DAILY Thyroid 10/24/21 [History Last Taken Unknown] pantoprazole 40 mg tablet,delayed release 40 mg PO DAILY GERD 10/24/21 [History Last Taken Unknown] acetaminophen 500 mg tablet 1,000 mg PO Q6H PRN PRN Pain Score 1-3 #0 tabs 11/12/21 [Rx Last Taken Unknown] amlodipine 5 mg tablet 5 mg PO BID #0 tabs 11/12/21 [Rx Last Taken Unknown] losartan 50 mg tablet 50 mg PO BID #0 tabs 11/12/21 [Rx Last Taken Unknown] polysaccharide iron complex 150 mg iron capsule (Ferrex) 150 mg PO DAILY #0 caps 11/12/21 [Rx Last Taken Unknown] ascorbic acid (vitamin C) 500 mg tablet (Vitamin C) 500 mg PO DAILY 12/08/21 [History Last Taken Unknown] guaifenesin 50 mg/5 mL oral liquid 100 mg PO Q4H PRN Cough 12/08/21 [History Last Taken Unknown] nystatin 100,000 unit/gram topical powder (Nyamyc) 1 applic topical TID 12/08/21 [History Last Taken Unknown] doxycycline monohydrate 100 mg capsule 100 mg PO BID 01/13/22 [History Last Taken Unknown] hydralazine 50 mg tablet 25 mg PO BID 01/13/22 [History Last Taken Unknown] insulin glargine-yfgn 100 unit/mL (3 mL) subcutaneous pen 18 unit subcut QHS 01/13/22 [History Last Taken Unknown] insulin lispro 100 unit/mL subcutaneous pen 5 unit subcut DAILY Check with primary doctor 01/13/22 [History Last Taken Unknown] insulin lispro 100 unit/mL subcutaneous pen See Protocol subcut ACHS 01/13/22 [History Last Taken Unknown] metoprolol tartrate 25 mg tablet 12.5 mg PO BID 01/13/22 [History Last Taken Unknown] sennosides 8.6 mg-docusate sodium 50 mg tablet (Stool Softener-Stimulant Laxative) 1 tab PO Q6H PRN PRN Constipation 01/13/22 [History Last Taken Unknown] tramadol 50 mg tablet 50 mg PO Q8H PRN PRN Pain Score 1-10 01/13/22 [History Last Taken Unknown] Allergy/AdvReac Type Severity Reaction Status Date / Time banana Allergy Hives Verified 12/08/21 09:51 peanut Allergy Hives Verified 12/08/21 16:03 Penicillins Allergy Other Verified 12/27/21 08:54 Sulfa (Sulfonamide Allergy Swelling Verified 12/27/21 08:54 Antibiotics) Surgical History Status post open reduction with internal fixation (ORIF) of fracture of ankle Social History household members: none housing: assisted living facility Smoking Status: Former smoker alcohol intake: never substance use type: does not use Physical Exam Const alert and no apparent distress General Appearance: cooperative HEENT normocephalic and head/scalp atraumatic Eyes PERRL and EOMs intact bilaterally Neck supple and No nodes Resp normal air movement and clear to auscultation bilaterally Cardio regular rate and regular rhythm GI soft to palpation, non-tender and non-distended Extremity General Extremity: edema Skin Skin Narrative: reviewed photos, L lateral ankle exposed hardware Neuro CN's II-XII intact bilaterally Lab / Micro Data Attestation: I reviewed the patient's lab results. Result Diagrams: 01/13/22 13:05 01/13/22 13:05 Labs: Laboratory Results - last 24 hr 01/13/22 13:05: C-React Prot Ext Range Cancelled 01/13/22 13:05: WBC 17.2 H, RBC 3.90 L, Hgb 10.8 L, Hct 34.7 L, MCV 89.0, MCH 27.7, MCHC 31.1 L, RDW Std Deviation 46.3 H, RDW Coeff of Suzy 14.5, Plt Count 474 H, MPV 10.3, Immature Gran % (Auto) 3.000 H, Neut % (Auto) 78.0 H, Lymph % (Auto) 13.8 L, [place] % (Auto) 3.8, Eos % (Auto) 0.8, Baso % (Auto) 0.6, Absolute Neuts (auto) 13.4 H, Absolute Lymphs (auto) 2.38, Nucleated RBC % 0, ESR 98 H 01/13/22 13:05: Sodium 136, Potassium 4.3, Chloride 106, Carbon Dioxide 25.0, Anion Gap 5, BUN 19 H, Creatinine 1.54 H, Estim Creat Clear Calc 22.49, Est GFR (MDRD) Af Amer 41 L, Est GFR (MDRD) Non-Af 34 L, BUN/Creatinine Ratio 12.3, Glucose 180 H, Calcium 9.1, Total Bilirubin 0.30, AST 29, ALT 42, Alkaline Phosphatase 101, C-React Prot Ext Range 28.80 H, Total Protein 7.6, Albumin 2.5 L, Globulin 5.1 H, Albumin/Globulin Ratio 0.5 L
[2022-01-13 15:17] LABS: M R Staph aureus DNA By PCR POSITIVE (Negative); Probe Check PASS; Staph aureus DNA By PCR POSITIVE (Negative)
--- NOTE | 2022-01-13 15:35 | PCM.RX.CS ---
<Ashley Croft - Last Filed: 01/13/22 15:45> Consult Pharmacy has been consulted to manage selected antiobiotic: Vancomycin Suspected Infection: Skin/Soft tissue, Other Labs: Sodium 136 mmol/L (136-145) 01/13/22 13:05 Potassium 4.3 mmol/L (3.5-5.1) 01/13/22 13:05 Chloride 106 mmol/L (98-107) 01/13/22 13:05 Carbon Dioxide 25.0 mmol/L (21.0-32.0) 01/13/22 13:05 Anion Gap 5 (5-15) 01/13/22 13:05 BUN 19 mg/dL (7-18) H 01/13/22 13:05 Creatinine 1.54 mg/dL (0.55-1.02) H 01/13/22 13:05 Est GFR (MDRD) Af Amer 41 mL/min (>60) L 01/13/22 13:05 Est GFR (MDRD) Non-Af 34 mL/min (>60) L 01/13/22 13:05 BUN/Creatinine Ratio 12.3 RATIO (10-20) 01/13/22 13:05 Glucose 180 mg/dL (74-106) H 01/13/22 13:05 Weight used for dosin.657 kg Goal Trough: 10-15 mcg/mL Pharmacy Plan for Drug Dosing: Vancomycin 1250 mg IV x 1 for first dose on 01/13/22 then Vancomycin 500 mg IV q24H per pharmacy dosing protocol. A Vancomycin Trough ordered for 01/14/22 prior to second dose to monitor and adjust dose as needed for patient. Pharmacy Service will continue to monitor and adjust dosing as required. Follow-Up Labs: Trough Vancomycin Labs to be done on [date and time ordered]: 01/14/22 Vancomycin trough 1300 <Lin Alejandro - Last Filed: 01/14/22 08:15> Consult Labs: Sodium 139 mmol/L (136-145) 01/14/22 05:00 Potassium 4.0 mmol/L (3.5-5.1) 01/14/22 05:00 Chloride 109 mmol/L (98-107) H 01/14/22 05:00 Carbon Dioxide 25.0 mmol/L (21.0-32.0) 01/14/22 05:00 Anion Gap 5 (5-15) 01/14/22 05:00 BUN 21 mg/dL (7-18) H 01/14/22 05:00 Creatinine 1.10 mg/dL (0.55-1.02) H 01/14/22 05:00 Est GFR (MDRD) Af Amer 61 mL/min (>60) 01/14/22 05:00 Est GFR (MDRD) Non-Af 50 mL/min (>60) L 01/14/22 05:00 BUN/Creatinine Ratio 19.1 RATIO (10-20) 01/14/22 05:00 Glucose 145 mg/dL (74-106) H 01/14/22 05:00 Pharmacy Plan for Drug Dosing: Continuing current vancomycin dose of 500mg IV Q24hrs. Adjusted trough to 01/15/22 @1300 prior to 3rd total dose per protocol. Pharmacy Service will continue to monitor and adjust dosing as required.
[2022-01-13 16:02] VITALS: BP 125/42; PULSE 52; RESP 18; TEMP 36.7; O2SAT 94
[2022-01-13] MEDS: Insulin Lispro 100 UNIT/ML INSULN.PEN SC ×2 (16:09→21:23)
[2022-01-13 16:55] LABS: Bedside Glucose 392 mg/dL (74-106)
--- NOTE | 2022-01-13 17:48 | RAD_ITS ---
STUDY: X-RAY CHEST REASON FOR EXAM: Female, 86 years old. cough TECHNIQUE: PA and lateral views of the chest. COMPARISON: None. FINDINGS: The lungs are clear and expanded. There is no demonstrated pleural abnormality. Normal size heart. Normal mediastinum and toya. Normal visualized pulmonary arteries. Normal visualized aortic arch and descending thoracic aorta. There are diffuse degenerative changes of the visualized thoracic spine. Normal visualized ribs, clavicles, and shoulders. There is no demonstrated abnormality of the visualized soft tissue structures of the upper abdomen. RAD/Chest PA and Lateral IMPRESSION: Normal x-ray examination of the chest. Electronically Signed: Derrick Coello DO at 23:21 EDT ,
[2022-01-13] MEDS: traMADol 50 MG Tablet PO (18:20)
[2022-01-13 20:04] VITALS: BP 124/67; PULSE 62; RESP 18; TEMP 37.6; O2SAT 96
[2022-01-13 21:22] VITALS: BP 124/67; PULSE 62
[2022-01-13] MEDS: hydrALAZINE 25 MG Tablet PO (21:22)
[2022-01-13] MEDS: Heparin Injection (Vial) 5,000 UNIT/ML VIAL 5000 UNIT SC (21:23)
[2022-01-13] MEDS: Losartan Potassium 50 MG Tablet PO (21:23)
[2022-01-13 21:24] VITALS: BP 124/67; PULSE 62
[2022-01-13] MEDS: Insulin Glargine-YFGN 100 UNIT/ML Pen 18 UNIT SC (21:24)
[2022-01-13] MEDS: Metoprolol Tartrate 25 MG Tablet 12.5 MG PO (21:24)
[2022-01-13] MEDS: Atorvastatin Calcium 20 MG Tablet PO (21:24)
[2022-01-13] MEDS: amLODIPine 5 MG Tablet PO (21:25)
[2022-01-13 22:10] LABS: Bacteria 0 SEEN /hpf (None Seen); Mucous, Urine 0 SEEN /hpf (<or=2+); Red Blood Cells-Urine 0 SEEN /hpf (0-5)
[2022-01-13 22:13] LABS: Color, Urine Yellow (Yellow); Glucose, Dipstick 1000 mg/dl (Normal); Ketone-Dipstick Negative (Negative); Leukocyte Esterase-Dipstick Negative /ul (Negative); Nitrite-Dipstick Negative (Negative); Occult Blood-Urine Negative /ul (Negative); Protein-Dipstick Negative (Negative); Urine Bilirubin Dipstick Negative (Negative); Urine Clarity Clear (Clear); Urine Urobilinogen Normal (Normal)
[2022-01-13 22:23] LABS: Squamous Epithelial Cells - UA 0-5 SEEN /hpf (5-10); White Blood Cells 0-5 SEEN /hpf (0-5)
[2022-01-13 22:45] LABS: Bedside Glucose 311 mg/dL (74-106)
[2022-01-13] MEDS: Acetaminophen 500 MG Tablet 1000 MG PO (23:23)
[2022-01-14] VITALS (7 sets, daily range): BP systolic 98–142; BP diastolic 35–53; PULSE 56–74; RESP 13–16; TEMP 36.6–37.2; O2SAT 94–100
[2022-01-14] MEDS: 0.9% Normal Saline 1,000 ML 100 ML IV (04:31)
[2022-01-14 05:31] LABS: Absolute Lymphocyte Count 3.36 X10^3/uL (0.83-4.51); Absolute Neutrophil Count 5.5 X10^3/uL (2.0-7.7); Basophil# 0.07 X10^3/uL; Basophil% 0.7 % (0-1); Eosinophil# 0.28 X10^3/uL; Eosinophils% 2.8 % (0-5); Hematocrit 27.8 % (37-47); Hemoglobin 8.7 g/dL (12.0-15.0); Lymphocyte # 3.36 X10^3/ul (0.83-4.51); Lymphocyte % 33.2 % (19-41); Mean Corp Hgb Conc 31.3 g/dL (32-36); Mean Corpuscular Hgb 27.7 pg (27.0-32.0); Mean Corpuscular Volume 88.5 fL (81-99); Mean Platelet Vol. 10.4 fl (6.2-12.0); Monocyte# 0.78 X10^3/uL; Monocyte% 7.7 % (0-10); NRBC Flagged by Analyzer 0 % (0-5); Neutrophil # 5.51 X10^3/uL (2.7-7.7); Neutrophil % 54.3 % (47-70); Platelet Count 375 K/mm3 (150-450); RBC Distribution Width CV 14.4 % (11.6-14.6); RBC Distribution Width SD 46.4 fl (35.1-43.9); Red Blood Count 3.14 M/mm3 (4.2-5.4); White Blood Count 10.1 K/mm3 (4.4-11.0)
[2022-01-14 05:56] LABS: Anion Gap 5 (5-15); BUN 21 mg/dL (7-18); BUN/Creat Ratio 19.1 RATIO (10-20); Calcium,Total 8.4 mg/dL (8.5-10.1); Chloride 109 mmol/L (98-107); EST Glomerular Filtration Rate 50 mL/min (>60); Est Glom Filt Rate - Afr Amer 61 mL/min (>60); Estimated Creatinine Clearance 31.49 ml/min; Glucose 145 mg/dL (74-106); Sodium Level 139 mmol/L (136-145)
[2022-01-14] MEDS: Insulin Lispro 100 UNIT/ML INSULN.PEN SC ×5 (06:41→21:46)
[2022-01-14 07:05] LABS: Bedside Glucose 166 mg/dL (74-106)
--- NOTE | 2022-01-14 07:47 | PN_ITS ---
Subjective Subjective Patient was seen this morning for follow up on left ankle. She is resting in bed. No fever, WBC is normal. Objective Data Objective Data Vital Signs: Vital Signs Temp Pulse Resp BP Pulse Ox O2 Del Method 98.9 F 60 13 123/47 H 96 Room Air 01/14/22 02:15 01/14/22 02:15 01/14/22 02:15 01/14/22 02:15 01/14/22 02:15 01/14/22 02:15 Oxygen Delivery Method Room Air Weight: 76.657 kg Body Mass Index (BMI) 29.9 Intake & Output: Intake and Output for Last 24 Hours 01/12/22 01/13/22 01/14/22 23:59 23:59 23:59 Intake Total 1625 / 1825 550 / 550 Output Total 350 / 700 350 / 350 Balance 1275 / 1125 200 / 200 Lab / Micro Data Result Diagrams: 01/14/22 05:00 01/14/22 05:00 Labs: Laboratory Results - last 24 hr 01/13/22 13:00: S.aureus Protein A PCR POSITIVE H, MRSA (PCR) POSITIVE H 01/13/22 13:05: C-React Prot Ext Range Cancelled 01/13/22 13:05: WBC 17.2 H, RBC 3.90 L, Hgb 10.8 L, Hct 34.7 L, MCV 89.0, MCH 27.7, MCHC 31.1 L, RDW Std Deviation 46.3 H, RDW Coeff of Suzy 14.5, Plt Count 474 H, MPV 10.3, Immature Gran % (Auto) 3.000 H, Neut % (Auto) 78.0 H, Lymph % (Auto) 13.8 L, [place] % (Auto) 3.8, Eos % (Auto) 0.8, Baso % (Auto) 0.6, Absolute Neuts (auto) 13.4 H, Absolute Lymphs (auto) 2.38, Nucleated RBC % 0, ESR 98 H 01/13/22 13:05: Sodium 136, Potassium 4.3, Chloride 106, Carbon Dioxide 25.0, Anion Gap 5, BUN 19 H, Creatinine 1.54 H, Estim Creat Clear Calc 22.49, Est GFR (MDRD) Af Amer 41 L, Est GFR (MDRD) Non-Af 34 L, BUN/Creatinine Ratio 12.3, Glucose 180 H, Calcium 9.1, Total Bilirubin 0.30, AST 29, ALT 42, Alkaline Phosphatase 101, C-React Prot Ext Range 28.80 H, Total Protein 7.6, Albumin 2.5 L, Globulin 5.1 H, Albumin/Globulin Ratio 0.5 L 01/13/22 16:06: POC Glucose 392 H 01/13/22 21:18: POC Glucose 311 H 01/13/22 21:52: Urine Color Yellow, Urine Clarity Clear, Urine pH 6.0, Ur Specific [place] 1.020, Urine Protein Negative, Urine Glucose (UA) 1000 H, Urine Ketones Negative, Urine Occult Blood Negative, Urine Nitrite Negative, Urine Bilirubin Negative, Urine Urobilinogen Normal, Ur Leukocyte Esterase Negative, Urine RBC 0 SEEN, Urine WBC 0-5 SEEN, Ur Squamous Epith Cells 0-5 SEEN, Urine Bacteria 0 SEEN, Urine Mucus 0 SEEN 01/14/22 05:00: WBC 10.1, RBC 3.14 L, Hgb 8.7 L, Hct 27.8 L, MCV 88.5, MCH 27.7, MCHC 31.3 L, RDW Std Deviation 46.4 H, RDW Coeff of Suzy 14.4, Plt Count 375, MPV 10.4, Immature Gran % (Auto) 1.300 H, Neut % (Auto) 54.3, Lymph % (Auto) 33.2, [place] % (Auto) 7.7, Eos % (Auto) 2.8, Baso % (Auto) 0.7, Absolute Neuts (auto) 5.5, Absolute Lymphs (auto) 3.36, Nucleated RBC % 0 01/14/22 05:00: Sodium 139, Potassium 4.0, Chloride 109 H, Carbon Dioxide 25.0, Anion Gap 5, BUN 21 H, Creatinine 1.10 H, Estim Creat Clear Calc 31.49, Est GFR (MDRD) Af Amer 61, Est GFR (MDRD) Non-Af 50 L, BUN/Creatinine Ratio 19.1, Glucose 145 H, Calcium 8.4 L 01/14/22 06:40: POC Glucose 166 H Radiography Diagnostic Testing: Radiology Impression Chest X-Ray 01/13/22 17:48 IMPRESSION: Normal x-ray examination of the chest. Electronically Signed: Derrick Coello DO at 23:21 EDT , Physical Exam Const alert and no apparent distress Extremity Extremity Narrative: Lateral left ankle with wound down to plate over the lateral malleolus - there is some surrounding localized cellulitis which is improved, there is no visible abscess, no maloder, no fluctuance, no crepitus - there is a dry heel eschar with no evidence of infection - no evidence of acute ischemia to the left foot or ankle, no evidence of compartment syndrome either, no evidence of dvt. Assessment & Plan Assessment/Plan (1) Osteomyelitis of left ankle: (2) Cellulitis and abscess of left lower extremity: (3) Other specified peripheral vascular diseases: (4) Status post open reduction with internal fixation (ORIF) of fracture of ankle: PLAN: Plan Re-evaluated today. Radiographs were taken yesterday in office - hardware was noted to be intact - will order CT scan for further evaluation.? No evidence of soft tissue emphysema or abscess. Clinically the cellulitis does appear better this morning. The hardware is exposed left ankle. Culture has been obtained - results pending. ID/Dr. Cherry has been consulted - appreciate assistance with case - continue with antibiotic therapy. Consulted vascular surgery due to poor healing of the left lateral ankle wound in setting of peripheral arterial disease.? Patient was evaluated by Dr. Russo on 12/21/2021 at which time the plan to pursue conservative treatment due to her poor health status and wound improvement noted at that time - re-consulted Dr. Russo - however he will not be able to see patient until next week - there is no evidence of acute ischemia at this time. Patient to maintain a nonweightbearing status to her left lower extremity.? Patient receiving 5000 units of heparin twice daily for DVT prophylaxis.? Patient will have SCDs on the right lower extremity. Plan at this time does not include any hardware removal, would like vascular evaluation first, and also attempt antibiotic therapy and more dilligent wound care and offloading (patient failed to follow up as outpatient to receive proper wound care). Wound care left ankle - Luzmaria, gauze, kerlix daily dressing changes. There is a dry eschar to left heel with will be covered with dry gauze. Keep left lateral ankle offloaded at all times. Keep heels offloaded at all times - she has offloaded foam boots to wear.
--- NOTE | 2022-01-14 07:53 | CT_ITS ---
STUDY: CT LEFT ANKLE WITHOUT CONTRAST REASON FOR EXAM: Female, 86 years old. Left ankle pain. Prior ORIF of the trimalleolar fracture. RADIATION DOSAGE (If Supplied By Facility): CTDIvol = ( 15.35 ) mGy, DLP = ( 999.19 ) mGycm TECHNIQUE: Thin section transaxial imaging of the ankle was obtained, with sagittal and coronal reconstructed images. Individualized dose optimization techniques were used for this CT. COMPARISON: Comparison is made with prior study dated 10/24/2021. FINDINGS: The patient is status post open reduction and fixation of the medial malleolar fracture utilizing screw fixation device. There is healing of the fracture. The patient is also status post open reduction and internal fixation of the distal fibular fracture with screw and plate fixation device. Healing fracture of the posterior tibial mild fracture. Normal tibiotalar articulation and talar dome. Normal talus, calcaneus, navicular and cuboid tarsal bones. Normal subtalar, talonavicular and calcaneocuboid articulations. Normal navicular-cuneiform, cuneiform tarsal bones and intercuneiform articulations. Normal tarsometatarsal articulations and visualized metatarsi. Soft tissue swelling. CT/Extremity Lower without Contra IMPRESSION: Status post open reduction internal fixation of the medial malleolar fracture as well as the distal fibular fracture. There is evidence of healing. Soft tissue swelling. Electronically Signed: Ton Rod MD at 8:56 EDT ,
--- NOTE | 2022-01-14 08:22 | NURSING ---
pt to ct scan
[2022-01-14] MEDS: traMADol 50 MG Tablet PO ×2 (08:32→18:20)
[2022-01-14] MEDS: Heparin Injection (Vial) 5,000 UNIT/ML VIAL 5000 UNIT SC ×2 (08:33→21:45)
[2022-01-14] MEDS: Clopidogrel Bisulfate 75 MG Tablet PO (08:33)
[2022-01-14] MEDS: Levothyroxine 88 MCG Tablet PO (08:33)
[2022-01-14] MEDS: Pantoprazole Sodium 40 MG Tablet PO (08:33)
[2022-01-14] MEDS: Iron Polysaccharide Complex 150 MG CAPSULE PO (08:33)
--- NOTE | 2022-01-14 09:06 | CASEMGMT ---
Addendum entered by Virginia Lira 01/14/22 12:13: SW in to met with pt. Introduced self and role at the hospital. Confirmed with pt that she wants to return to the facility she came from. Pt was offered a list of?SNF?providers including quality and resource use data that is consistent with the patient?s preferred geographic region, medical needs, and insurance network but declined.?Pt was unsure of the name of the facility she was at previous to her hospital admittance but she stated she enjoyed the place she was at and does not want to go to a different SNF. LYDIA Snider Addendum entered by Virginia Lira 01/14/22 09:46: Received pc from Rosaura at [facility]. Rosaura apologized and reported that she had given this SW the wrong information. PT is from [facility], senior care. Rosaura stated no precert is needed unless PT/OT and the doctors recommend she return under a skilled level of care. 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 LYDIA Snider Original Note: Social Work SW reached out to Rosaura at [facility] to inform of pt's admit. FATOU shared pt was listed as [facility] and Rosaura shared this was the [place] part of the facility. Rosaura stated not at the office yet and would touch based with Delfino, who runs the [place] part of [facility] to discuss pt admitting to hospital. Rosaura stated I do not not see any reason pt should not be able to return. Plan: Return to [facility], if pt agreeable. LYDIA Snider
--- NOTE | 2022-01-14 10:15 | PCM.PN.ID ---
Physical Exam Narrative Ankle feels about the same, still sore. No fever, no n/v/d. Const alert and no apparent distress Resp normal air movement and clear to auscultation bilaterally Cardio regular rate and regular rhythm GI soft to palpation, non-tender and non-distended Skin Skin Narrative: ankle wrapped ID ID: Route of nutrition/ use of supplements: [] Nutritional Intake: [] IV Site: [] Murry Catheter: [] Assessment & Plan Assessment/Plan (1) Osteomyelitis of left ankle: PLAN: L ankle osteo with hardware involvement s.p ORIF 10/2021. Cxs of ankle pending. Pt tolerated cefazolin during OR 10/2021. Will cont to cover empirically with vanc/cefepime. Will follow (2) Diabetes mellitus: (3) Status post open reduction with internal fixation (ORIF) of fracture of ankle:
[2022-01-14 11:15] LABS: Bedside Glucose 234 mg/dL (74-106)
--- NOTE | 2022-01-14 13:14 | CHAPLAIN ---
Type of Pastoral Visit _x__ Initial Visit ___ Follow-up Visit ___ On-call Visit ___ General Patient Visit ___ Spiritual Assessment ___ Family Conference ___ Bereavement ___ Rapid Response ___ Code Blue ___ Other (describe below) Pastoral Care Referral From _x__ Patient ___ Family ___ Nurse ___ Physician ___ Latin American Studies Professor ___ Director Airport Operations ___ Other (describe below) Sacrament/Intervention _x__ Active listening ___ Anointing ___ Samaritan ___ Bereavement ___ Communion _x__ Monae exploration ___ _x__ Life review _x__ Prayer ___ Reconciliation ___ Sacrament of Sick _x__ Supportive presence ___ Wedding ___ Other (describe below) Pastoral Comments this patient has been seen by this ict customer support officer in previous admissions; pt has no living family; pt is from a SNF and expects to return; pt says that someone has moved all her possessions from her home and has no idea where they have put them but she is okay because 'why do I need those things now, I have nothing in this world'; pt states that she still has God with her and she has no needs except if I could get a watch that would be good; prayer and presence readily welcomed
[2022-01-14] MEDS: Vancomycin IV 500 MG/100 ML BAG 100 MG IV (13:46)
--- NOTE | 2022-01-14 14:35 | PN.HOSP_ITS ---
Subjective Subjective Patient denies any complaints other than left ankle pain that has been ongoing since admission. She denies any chest pain or shortness of breath. She states pain medication is helping take the edge off her pain. She is willing to go back to [facility] at discharge as she is happy there prior to coming to the hospital. Objective Data Objective Data Vital Signs: Vital Signs Temp Pulse Resp BP Pulse Ox O2 Del Method 98.8 F 60 16 134/40 H 100 Room Air 01/14/22 13:54 01/14/22 13:54 01/14/22 13:54 01/14/22 13:54 01/14/22 13:54 01/14/22 13:54 Oxygen Delivery Method Room Air Weight: 76.657 kg Body Mass Index (BMI) 29.9 Intake & Output: Intake and Output for Last 24 Hours 01/12/22 01/13/22 01/14/22 23:59 23:59 23:59 Intake Total 1625 / 1825 1702.49 / 1702.49 Output Total 350 / 700 500 / 500 Balance 1275 / 1125 1202.49 / 1202.49 Medical Nutrition Assessment Dietitian: Malnutrition Criteria Met Start: 01/14/22 14:01 Freq: Status: Active Protocol: Document 01/14/22 14:01 (Rec: 01/14/22 14:01 [id number]) Nutrition Malnutrition Evidence of Malnutrition Exists Yes Malnutrition (severe): Acute Illness/Injury Evidenced By Suboptimal Energy Intake ( Severe),Weight Loss (Severe) Clinical Problem Acute Disease or Injury Related Malnutrition Etiology severe, acute malnutrition related to inadequate energy intake d/t recent surgery, nausea/emesis Signs/Symptoms as evidenced by unintentional wt loss of 28.1#/14% wt loss x 2.5 months; estimated PO intake meeting <50% of estimated energy needs x 2.5 weeks [employer]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 Problem Recommendation Dietitian Recommendations/Changes continue regular diet- will order easy to chew textures, pureed soups per pt request; ensure enlive 120mL 4x/day and Moris BID for additional calories/protein if consumed given malnutrition, delayed wound healing Lab / Micro Data Result Diagrams: 01/14/22 05:00 01/14/22 05:00 Labs: Laboratory Results - last 24 hr 01/13/22 13:00: S.aureus Protein A PCR POSITIVE H, MRSA (PCR) POSITIVE H 01/13/22 16:06: POC Glucose 392 H 01/13/22 21:18: POC Glucose 311 H 01/13/22 21:52: Urine Color Yellow, Urine Clarity Clear, Urine pH 6.0, Ur Specific [place] 1.020, Urine Protein Negative, Urine Glucose (UA) 1000 H, Urine Ketones Negative, Urine Occult Blood Negative, Urine Nitrite Negative, Urine Bilirubin Negative, Urine Urobilinogen Normal, Ur Leukocyte Esterase Negative, Urine RBC 0 SEEN, Urine WBC 0-5 SEEN, Ur Squamous Epith Cells 0-5 SEEN, Urine Bacteria 0 SEEN, Urine Mucus 0 SEEN 01/14/22 05:00: WBC 10.1, RBC 3.14 L, Hgb 8.7 L, Hct 27.8 L, MCV 88.5, MCH 27.7, MCHC 31.3 L, RDW Std Deviation 46.4 H, RDW Coeff of Suzy 14.4, Plt Count 375, MPV 10.4, Immature Gran % (Auto) 1.300 H, Neut % (Auto) 54.3, Lymph % (Auto) 33.2, [place] % (Auto) 7.7, Eos % (Auto) 2.8, Baso % (Auto) 0.7, Absolute Neuts (auto) 5.5, Absolute Lymphs (auto) 3.36, Nucleated RBC % 0 01/14/22 05:00: Sodium 139, Potassium 4.0, Chloride 109 H, Carbon Dioxide 25.0, Anion Gap 5, BUN 21 H, Creatinine 1.10 H, Estim Creat Clear Calc 31.49, Est GFR (MDRD) Af Amer 61, Est GFR (MDRD) Non-Af 50 L, BUN/Creatinine Ratio 19.1, Glucose 145 H, Calcium 8.4 L 01/14/22 06:40: POC Glucose 166 H 01/14/22 10:58: POC Glucose 234 H Micro: Microbiology 01/13/22 Unknown Wound - Ankle Gram Stain - Final 01/13/22 Unknown Wound - Ankle Wound Culture - Preliminary Staphylococcus aureus 01/13/22 13:00 Wound - Ankle Gram Stain - Final 01/13/22 13:00 Wound - Ankle Wound Culture - Preliminary Streptococcus pyogenes Radiography Diagnostic Testing: Radiology Impression Chest X-Ray 01/13/22 17:48 IMPRESSION: Normal x-ray examination of the chest. Electronically Signed: Derrick Coello DO at 23:21 EDT , Lower Extremity CT 01/14/22 07:53 IMPRESSION: Status post open reduction internal fixation of the medial malleolar fracture as well as the distal fibular fracture. There is evidence of healing. Soft tissue swelling. Electronically Signed: Ton Rod MD at 8:56 EDT , Physical Exam Const alert, no apparent distress and well nourished Constitutional Narrative: Elderly white female sitting up in bed eating breakfast watching television, appears comfortable, nontoxic was unable to tell me what hospital she was in but was oriented otherwise HEENT head/scalp atraumatic and moist oral mucous membranes HEENT Narrative: Mallampati 3, no thrush, dentition poor Head and Scalp: normocephalic Resp normal respiratory effort, no retractions, no use of accessory muscles and clear to auscultation bilaterally Auscultation: Negative for crackles, rales, rhonchi or wheezes Cardio regular rate, regular rhythm, S1 normal heart sound, S2 normal heart sound, no murmurs, no rub, no gallops, no clicks and no JVD GI normal to inspection, nondistended, normoactive bowel sounds, soft to palpation and non-tender Extremity no clubbing, cyanosis or edema Extremity Narrative: Left lower extremity with dressing in place, hardware is visible on exam, cultures are pending Neuro oriented x3 Neuro Narrative: Decreased movement left lower extremity secondary to wound but no focal deficits Sensorium / Orientation: awake, alert, oriented to person and oriented to time Speech: speech normal Assessment & Plan Assessment/Plan (1) Osteomyelitis of left ankle: (2) Cellulitis and abscess of left lower extremity: (3) JARRETT (acute kidney injury): PLAN: Plan Osteomyelitis of the left ankle -Cultures are pending -Recent ORIF 2021 -Continue empiric vancomycin and cefepime for now until can narrow antibiotics based on cultures -Wound management per podiatry -CT of the foot and ankle shows no subcu emphysema or abscess present -We will need vascular follow-up -Continue nonweightbearing status -Plan is for vascular evaluation before any surgical decisions are made -Do not anticipate discharge until after vascular is able to see the patient -Wound care is following JARRETT on CKD stage II -Serum creatinine on presentation is greater than 0.3 than baseline -1.54 on admission -Baseline 0.9-1.05 -Trending down -We will continue fluids at a decreased rate for the next 24 hours and likely discontinue tomorrow and follow DM-2 Hemoglobin A1c in October was 7.5 -Continue home Levemir -Restart home lispro -Continue sliding scale as ordered -Continue Accu-Cheks Hypothyroidism -Continue levothyroxine -TSH was 1.66 in October Hypertension -Blood pressure was a bit soft this morning therefore antihypertensives were held -On losartan 50 mg p.o. be ID/hydralazine 25 mg p.o. twice daily the/and amlodipine 5 mg p.o. twice daily at home -Monitor blood pressures and reinitiate as able Hyperlipidemia -Continue atorvastatin Peripheral vascular disease -Continue Plavix GERD -Continue PPI Debility -PT/OT consultation Dementia -Mild memory loss noted on exam Carotid artery disease -Management per vascular surgery DVT prophylaxis -Heparin is ordered CODE STATUS -DNR CCA Charges/Coding Visit Charges Inpatient E&M: 70007 Subs Hosp L2
[2022-01-14] MEDS: Juven (unflavored) Packet 1 PACKET PO (15:59)
[2022-01-14 16:30] LABS: Bedside Glucose 204 mg/dL (74-106)
[2022-01-14] MEDS: 0.9% Normal Saline 1,000 ML 70 ML IV (17:53)
[2022-01-14] MEDS: Acetaminophen 500 MG Tablet 1000 MG PO (21:42)
[2022-01-14] MEDS: hydrALAZINE 25 MG Tablet PO (21:44)
[2022-01-14] MEDS: Atorvastatin Calcium 20 MG Tablet PO (21:44)
[2022-01-14] MEDS: Losartan Potassium 50 MG Tablet PO (21:44)
[2022-01-14] MEDS: Metoprolol Tartrate 25 MG Tablet 12.5 MG PO (21:45)
[2022-01-14] MEDS: amLODIPine 5 MG Tablet PO (21:45)
[2022-01-14] MEDS: Insulin Glargine-YFGN 100 UNIT/ML Pen 18 UNIT SC (21:46)
[2022-01-14 22:15] LABS: Bedside Glucose 207 mg/dL (74-106)
[2022-01-15 02:30] VITALS: BP 144/54; PULSE 57; RESP 14; TEMP 36.8; O2SAT 96
[2022-01-15] MEDS: Levothyroxine 88 MCG Tablet PO (05:18)
[2022-01-15 07:47] LABS: Anion Gap 6 (5-15); BUN 18 mg/dL (7-18); BUN/Creat Ratio 18.7 RATIO (10-20); Calcium,Total 8.8 mg/dL (8.5-10.1); Chloride 107 mmol/L (98-107); Creatinine, Serum 0.96 mg/dL (0.55-1.02); EST Glomerular Filtration Rate 58 mL/min (>60); Est Glom Filt Rate - Afr Amer 71 mL/min (>60); Estimated Creatinine Clearance 36.09 ml/min; Glucose 207 mg/dL (74-106); Potassium 4.3 mmol/L (3.5-5.1); Sodium Level 139 mmol/L (136-145)
[2022-01-15] MEDS: 0.9% Normal Saline 1,000 ML 70 ML IV (07:47)
[2022-01-15] MEDS: Insulin Lispro 100 UNIT/ML INSULN.PEN SC ×6 (07:47→17:16)
[2022-01-15] MEDS: Juven (unflavored) Packet 1 PACKET PO ×2 (07:49→17:16)
[2022-01-15 07:52] VITALS: PULSE 55
[2022-01-15] MEDS: amLODIPine 5 MG Tablet PO (07:52)
[2022-01-15] MEDS: hydrALAZINE 25 MG Tablet PO (07:52)
[2022-01-15] MEDS: Pantoprazole Sodium 40 MG Tablet PO (07:52)
[2022-01-15 07:53] VITALS: PULSE 55
[2022-01-15] MEDS: Metoprolol Tartrate 25 MG Tablet 12.5 MG PO (07:53)
[2022-01-15] MEDS: Losartan Potassium 50 MG Tablet PO (07:53)
[2022-01-15 07:55] LABS: Bedside Glucose 242 mg/dL (74-106)
[2022-01-15] MEDS: Clopidogrel Bisulfate 75 MG Tablet PO (07:57)
[2022-01-15] MEDS: Iron Polysaccharide Complex 150 MG CAPSULE PO (07:57)
[2022-01-15] MEDS: Heparin Injection (Vial) 5,000 UNIT/ML VIAL 5000 UNIT SC (08:01)
[2022-01-15] MEDS: traMADol 50 MG Tablet PO ×2 (08:05→18:43)
[2022-01-15 08:08] VITALS: BP 142/53; PULSE 55; RESP 16; TEMP 37.1; O2SAT 96
--- NOTE | 2022-01-15 09:19 | PCM.PROGNOTE ---
Subjective Subjective Patient was seen this morning for follow up on left ankle. She has no new complaints. She had CT scan yesterday. No fever. Objective Data Objective Data Vital Signs: Vital Signs Temp Pulse Resp BP Pulse Ox O2 Del Method 98.7 F 55 L 16 142/53 H 96 Room Air 01/15/22 08:08 01/15/22 08:08 01/15/22 08:08 01/15/22 08:08 01/15/22 08:08 01/15/22 08:08 Oxygen Delivery Method Room Air Weight: 76.657 kg Body Mass Index (BMI) 29.9 Intake & Output: Intake and Output for Last 24 Hours 01/13/22 01/14/22 01/15/22 23:59 23:59 23:59 Intake Total 1625 / 1825 2715.99 / 3615.99 2223 / 2223 Output Total 350 / 700 1000 / 2250 1950 / 1950 Balance 1275 / 1125 1715.99 / 1365.99 273 / 273 Medical Nutrition Assessment Dietitian: Malnutrition Criteria Met Start: 01/14/22 14:01 Freq: Status: Active Protocol: Document 01/14/22 14:01 (Rec: 01/14/22 14:01 [id number]) Nutrition Malnutrition Evidence of Malnutrition Exists Yes Malnutrition (severe): Acute Illness/Injury Evidenced By Suboptimal Energy Intake ( Severe),Weight Loss (Severe) Clinical Problem Acute Disease or Injury Related Malnutrition Etiology severe, acute malnutrition related to inadequate energy intake d/t recent surgery, nausea/emesis Signs/Symptoms as evidenced by unintentional wt loss of 28.1#/14% wt loss x 2.5 months; estimated PO intake meeting <50% of estimated energy needs x 2.5 weeks 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 Problem Recommendation Dietitian Recommendations/Changes continue regular diet- will order easy to chew textures, pureed soups per pt request; ensure enlive 120mL 4x/day and Moris BID for additional calories/protein if consumed given malnutrition, delayed wound healing Lab / Micro Data Result Diagrams: 01/14/22 05:00 01/15/22 06:10 Labs: Laboratory Results - last 24 hr 01/13/22 13:00: S.aureus Protein A PCR POSITIVE H, MRSA (PCR) POSITIVE H 01/14/22 10:58: POC Glucose 234 H 01/14/22 15:54: POC Glucose 204 H 01/14/22 21:41: POC Glucose 207 H 01/15/22 06:10: Sodium 139, Potassium 4.3, Chloride 107, Carbon Dioxide 26.0, Anion Gap 6, BUN 18, Creatinine 0.96, Estim Creat Clear Calc 36.09, Est GFR (MDRD) Af Amer 71, Est GFR (MDRD) Non-Af 58 L, BUN/Creatinine Ratio 18.7, Glucose 207 H, Calcium 8.8 01/15/22 07:31: POC Glucose 242 H Micro: Microbiology 01/13/22 Unknown Wound - Ankle Gram Stain - Final 01/13/22 Unknown Wound - Ankle Wound Culture - Preliminary Staphylococcus aureus 01/13/22 13:00 Wound - Ankle Gram Stain - Final 01/13/22 13:00 Wound - Ankle Wound Culture - Preliminary Streptococcus pyogenes Physical Exam Narrative Patient is confused, responsive to verbal and physical stimuli. Patient oriented to person and place. There is no evidence of acute ischemia to the left foot or ankle. There is a full-thickness wound noted to the inferior aspect of the incision down to the level of left fibular with less periwound erythema, minimal edema, there is no evidence of fluctuance or crepitus, there is dry stable eschar noted to the plantar heel on the left lower extremity. No underlying bogginess fluctuance crepitus. Musculoskeletal: Diffuse pain to left ankle focused over the lateral ankle with guarding to ankle joint range of motion. No calf pain. Const alert and no apparent distress Assessment & Plan Assessment/Plan (1) Osteomyelitis of left ankle: (2) Cellulitis and abscess of left lower extremity: (3) Other specified peripheral vascular diseases: (4) Status post open reduction with internal fixation (ORIF) of fracture of ankle: PLAN: Plan Re-evaluated today. Radiographs were taken yesterday in office - hardware was noted to be intact - reviewed CT scan results - hardware intact, fractures healing, no evidence of soft tissue emphysema or abscess. Clinically the cellulitis continues to improved. The hardware is exposed left ankle. Culture has been obtained - results pending but so far growing staph aureus and strep. ID/Dr. Cherry has been consulted - appreciate assistance with case - continue with antibiotic therapy. Consulted vascular surgery due to poor healing of the left lateral ankle wound in setting of peripheral arterial disease.? Patient was evaluated by Dr. Russo on 12/21/2021 at which time the plan to pursue conservative treatment due to her poor health status and wound improvement noted at that time - re-consulted Dr. Russo - however he will not be able to see patient until next week - there is no evidence of acute ischemia at this time. Patient to maintain a nonweightbearing status to her left lower extremity.? Patient receiving heparin twice daily for DVT prophylaxis.? Patient will have SCDs on the right lower extremity. Plan at this time does not include any hardware removal, would like vascular evaluation first, and also attempt antibiotic therapy and more diligent wound care and offloading (patient failed to follow up as outpatient to receive proper wound care). Wound care left ankle - Luzmaria, gauze, kerlix daily dressing changes. There is a dry eschar to left heel with will be covered with dry gauze. Keep left lateral ankle offloaded at all times. Keep heels offloaded at all times - she has offloaded foam boots to wear.
--- NOTE | 2022-01-15 10:55 | PN.HOSP_ITS ---
Subjective Subjective No issues overnight. Patient denies any significant pain at this time. She is just finished eating her breakfast without any difficulty. Objective Data Objective Data Vital Signs: Vital Signs Temp Pulse Resp BP Pulse Ox O2 Del Method 98.7 F 55 L 16 142/53 H 96 Room Air 01/15/22 08:08 01/15/22 08:08 01/15/22 08:08 01/15/22 08:08 01/15/22 08:08 01/15/22 08:08 Oxygen Delivery Method Room Air Weight: 76.657 kg Body Mass Index (BMI) 29.9 Intake & Output: Intake and Output for Last 24 Hours 01/13/22 01/14/22 01/15/22 23:59 23:59 23:59 Intake Total 1625 / 1825 2715.99 / 3615.99 2475.83 / 2475.83 Output Total 350 / 700 1000 / 2250 1950 / 1950 Balance 1275 / 1125 1715.99 / 1365.99 525.83 / 525.83 Medical Nutrition Assessment Dietitian: Malnutrition Criteria Met Start: 01/14/22 14:01 Freq: Status: Active Protocol: Document 01/14/22 14:01 (Rec: 01/14/22 14:01 [id number]) Nutrition Malnutrition Evidence of Malnutrition Exists Yes Malnutrition (severe): Acute Illness/Injury Evidenced By Suboptimal Energy Intake ( Severe),Weight Loss (Severe) Clinical Problem Acute Disease or Injury Related Malnutrition Etiology severe, acute malnutrition related to inadequate energy intake d/t recent surgery, nausea/emesis Signs/Symptoms as evidenced by unintentional wt loss of 28.1#/14% wt loss x 2.5 months; estimated PO intake meeting <50% of estimated energy needs x 2.5 weeks 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 Problem Recommendation Dietitian Recommendations/Changes continue regular diet- will order easy to chew textures, pureed soups per pt request; ensure enlive 120mL 4x/day and Moris BID for additional calories/protein if consumed given malnutrition, delayed wound healing Lab / Micro Data Result Diagrams: 01/14/22 05:00 01/15/22 06:10 Labs: Laboratory Results - last 24 hr 01/13/22 13:00: S.aureus Protein A PCR POSITIVE H, MRSA (PCR) POSITIVE H 01/14/22 10:58: POC Glucose 234 H 01/14/22 15:54: POC Glucose 204 H 01/14/22 21:41: POC Glucose 207 H 01/15/22 06:10: Sodium 139, Potassium 4.3, Chloride 107, Carbon Dioxide 26.0, Anion Gap 6, BUN 18, Creatinine 0.96, Estim Creat Clear Calc 36.09, Est GFR (MDRD) Af Amer 71, Est GFR (MDRD) Non-Af 58 L, BUN/Creatinine Ratio 18.7, Glucose 207 H, Calcium 8.8 01/15/22 07:31: POC Glucose 242 H Micro: Microbiology 01/13/22 13:00 Wound - Ankle Gram Stain - Final 01/13/22 13:00 Wound - Ankle Wound Culture - Preliminary Streptococcus pyogenes Staphylococcus aureus 01/13/22 Unknown Wound - Ankle Gram Stain - Final 01/13/22 Unknown Wound - Ankle Wound Culture - Preliminary Staphylococcus aureus Physical Exam Const alert, no apparent distress and well nourished Constitutional Narrative: Elderly white female sitting up in bed eating breakfast watching television, appears comfortable, nontoxic was unable to tell me what hospital she was in but was oriented otherwise Orientation / Consciousness: confused HEENT head/scalp atraumatic and moist oral mucous membranes HEENT Narrative: Mallampati 2, dentition is poor, no thrush Resp normal respiratory effort, no retractions, no use of accessory muscles and clear to auscultation bilaterally Auscultation: Negative for crackles, rales, rhonchi or wheezes Cardio regular rate, regular rhythm, S1 normal heart sound, S2 normal heart sound, no murmurs, no rub, no gallops, no clicks and no JVD GI normal to inspection, nondistended, normoactive bowel sounds, soft to palpation, non-tender and non-distended Extremity no clubbing, cyanosis or edema Extremity Narrative: Pedal pulses are somewhat diminished Neuro oriented x3 and moves all extremities Neuro Narrative: Decreased movement left lower extremity secondary to wound but no focal deficits Sensorium / Orientation: awake, alert, oriented to person and oriented to time Speech: speech normal Psych Psych Narrative: confused Assessment & Plan Assessment/Plan (1) Cellulitis and abscess of left lower extremity: PLAN: Plan Osteomyelitis of the left ankle -Cultures are pending -Recent ORIF 10/2021 -Cultures show staph aureus/group A strep/strep pyogenes -Continue cefepime and vancomycin per ID -Wound care is following -CT of the foot and ankle shows no subcu emphysema or abscess present -We will need vascular follow-up after discharge -Continue nonweightbearing status -Plan is for vascular evaluation before any surgical decisions are made -Likely okay for discharge if infectious disease/podiatry is agreeable -Okay from my standpoint for discharge if the above are amenable -Wound care is following JARRETT on CKD stage II -Serum creatinine on presentation is greater than 0.3 than baseline -1.54 on admission--> normalized at 0.96 today -Baseline 0.9-1.05 -Discontinue IV fluids DM-2 -Hemoglobin A1c in October was 7.5 -Continue home Levemir basal insulin -Continue home lispro bolus insulin -Continue sliding scale as ordered -Continue Accu-Cheks Hypothyroidism -Continue levothyroxine -TSH was 1.66 in October Hypertension -On losartan 50 mg p.o. be ID/hydralazine 25 mg p.o. twice daily the/and amlodipine 5 mg p.o. twice daily at home -Blood pressures up and medicines given Hyperlipidemia -Continue atorvastatin Peripheral vascular disease -Continue Plavix GERD -Continue PPI Debility -PT/OT consultation Dementia -Mild memory loss noted on exam Carotid artery disease -Management per vascular surgery DVT prophylaxis -Heparin is ordered CODE STATUS -DNR CCA Charges/Coding Visit Charges Inpatient E&M: 59479 Subs Hosp L2
[2022-01-15 11:30] LABS: Bedside Glucose 208 mg/dL (74-106)
--- NOTE | 2022-01-15 13:23 | CASEMGMT ---
Social Work It is anticipated pt will return to [facility] on the weekend, pt is from there, snf, intermediate level of care. SW notified d/c shoe lay out planner, she will send updates. Green sheet w/COVID form and transport forms on chart in anticipation of weekend discharge. CHRISSIE Garcia
[2022-01-15] MEDS: Vancomycin IV 500 MG/100 ML BAG 100 MG IV ×2 (13:27→17:21)
--- NOTE | 2022-01-15 13:34 | CASEMGMT ---
Discharge Vending Machine Attendant Leora esqueda assistant teacher primary sent updates via Care Port to [facility]. Leora Mckeon Discharge Vending Machine Attendant
[2022-01-15 13:35] LABS: Vancomycin, Trough Level 8.5 ug/mL (5.0-15.0)
[2022-01-15 13:48] VITALS: BP 127/46; PULSE 49; RESP 16; TEMP 37; O2SAT 98
--- NOTE | 2022-01-15 13:57 | PN.ID_ITS ---
Physical Exam Narrative Feeling better, no fever, no n/v/d. Const alert and no apparent distress Resp normal air movement and clear to auscultation bilaterally Cardio regular rate and regular rhythm GI soft to palpation, non-tender and non-distended Skin Skin Narrative: LLE wrapped ID ID: Route of nutrition/ use of supplements: [] Nutritional Intake: [] IV Site: [] Murry Catheter: [] Assessment & Plan Assessment/Plan (1) Osteomyelitis of left ankle: PLAN: L ankle osteo with hardware involvement s.p ORIF 10/2021. Cxs of ankle with staph aureus and GAS. Pt tolerated cefazolin during OR 10/2021. Will cont to cover empirically with vanc. Will order picc, 6 weeks iv vanc, stop date 02/24 and weekly labs. Plan will be for long course of po suppressive abx once iv is complete. ID followup in 2 weeks. D/w assistant case manager. Will follow (2) Diabetes mellitus: (3) Status post open reduction with internal fixation (ORIF) of fracture of ankle:
--- NOTE | 2022-01-15 13:59 | CASEMGMT ---
Addendum entered by Jacki Sanford 01/15/22 16:08: Pt may be able to return to [facility] today. SW called Rosaura with [facility], she states that pt can return today if she is discharged. CHRISSIE Garcia Original Note: Social Work All information was sent via Care Port to [facility] to update on pt's progress. SW did also send over information regarding IV antibiotics and reviewed w/Rosaura at [facility] on the phone, they are able to manage the IVs as prescribed. SW placed green sheet along w/COVID form and transport forms on the chart in anticipation of weekend discharge. CHRISSIE Garcia
[2022-01-15 16:25] LABS: Bedside Glucose 177 mg/dL (74-106)
--- NOTE | 2022-01-15 17:07 | RAD_ITS ---
INDICATION: picc line placement EXAMINATION/TECHNIQUE: X-RAY - XR Chest 1 View COMPARISON: 01/13/2022 chest x-ray. FINDINGS: LINES/DEVICES: Right-sided PICC line with the tip at the cavoatrial junction. There is no pneumothorax. LUNGS: Symmetric normal lung volumes. No airspace opacity or abnormal interstitial pattern. No nodule or mass. No pleural effusion or pneumothorax. MEDIASTINUM AND CARDIOVASCULAR STRUCTURES: Normal size and contour of the cardiomediastinal silhouette. No evidence of pulmonary vascular congestion. BONES AND SOFT TISSUES: No fracture or focal osseous lesion. Significant bilateral facet arthropathy and cervical spine. Calcifications in the region of the carotid bulbs. RAD/Chest 1 View (Portable) IMPRESSION: 1. No radiographic evidence of acute cardiopulmonary disease. Electronically Signed: Delfino Tim DO at 20:03 EDT ,
--- NOTE | 2022-01-15 17:20 | PCM.TXEXTCAR ---
Diet Diet Order/Speech Therapy: 01/13/22 12:35 Diet: Regular - General Food consistency:: Easy to Chew Liquid Consistency:: Regular/Thin Is pt able to select menu?: Yes Diet Comments: pureed soups per pt request- no teeth or dentures Wound(s) left ankle: Wound Type: Open Surgical Wound Dressing Change: Dry Sterile Dressing (Left ankle - cleanse with normal saline solution, apply narinder with overlying gauze and kerlix - change daily. Keep offloaded at all times.) left heel: Wound Type: Pressure Injury Dressing Change: well padded dressing (Cleanse with normal saline solution. Cover with dry gauze. Keep offloaded at all times.) Suggestions for Active Care Positions to Avoid: Avoid pressure to heels. Keep offloaded at all times with foam boots. Therapies Weight Bearing: Non weight bearing (No weight to left foot.) Problem/Diagnosis (1) Osteomyelitis of left ankle: Status: Acute Code(s): M86.9 - Osteomyelitis, unspecified (2) Diabetes mellitus: Status: Acute Code(s): E11.9 - Type 2 diabetes mellitus without complications (3) Status post open reduction with internal fixation (ORIF) of fracture of ankle: Status: Acute Code(s): Z98.890 - Other specified postprocedural states; Z87.81 - Personal history of (healed) traumatic fracture Plan Re-evaluated today. Radiographs were taken yesterday in office - hardware was noted to be intact - reviewed CT scan results - hardware intact, fractures healing, no evidence of soft tissue emphysema or abscess. Clinically the cellulitis continues to improved. The hardware is exposed left ankle. Culture has been obtained - results pending but so far growing staph aureus and strep. ID/Dr. Cherry has been consulted - appreciate assistance with case - continue with antibiotic therapy. Consulted vascular surgery due to poor healing of the left lateral ankle wound in setting of peripheral arterial disease.? Patient was evaluated by Dr. Russo on 12/21/2021 at which time the plan to pursue conservative treatment due to her poor health status and wound improvement noted at that time - re-consulted Dr. Russo - however he will not be able to see patient until next week - there is no evidence of acute ischemia at this time. Patient to maintain a nonweightbearing status to her left lower extremity.? Patient receiving heparin twice daily for DVT prophylaxis.? Patient will have SCDs on the right lower extremity. Plan at this time does not include any hardware removal, would like vascular evaluation first, and also attempt antibiotic therapy and more diligent wound care and offloading (patient failed to follow up as outpatient to receive proper wound care). Wound care left ankle - Narinder, gauze, kerlix daily dressing changes. There is a dry eschar to left heel with will be covered with dry gauze. Keep left lateral ankle offloaded at all times. Keep heels offloaded at all times - she has offloaded foam boots to wear. Allergies/Procedures Done in Hospital Allergies banana Allergy (Verified 12/08/21 09:51) Hives peanut Allergy (Verified 12/08/21 16:03) Hives PEANUT BUTTER Penicillins Allergy (Verified 12/27/21 08:54) Other Sulfa (Sulfonamide Antibiotics) Allergy (Verified 12/27/21 08:54) Swelling Type of Care/Length of Stay Estimated LOS: More Than 30 Days Type of Care Needed: Intermediate Rehab Potential: Fair Prognosis: Fair Additional Orders/Day of Discharge Day of Discharge: 01/15/22 Dietary and Speech Recommendations Dietitian Recommendations/Changes: continue regular diet- will order easy to chew textures, pureed soups per pt request; ensure enlive 120mL 4x/day and Moris BID for additional calories/protein if consumed given malnutrition, delayed wound healing Follow Up Care Please follow up with your Primary Care Physician in: 1 week, sooner if needed Please Follow Up With: Jeremy Russo MD When: 1 week Please Follow Up With: Mart Barrera DPM When: 1 week, sooner if needed Discharge Plan Admission Admit Date/Time: 01/13/22 15:19 Attending Provider: Pal Francisco Primary Care Provider: Billie De Leon Consulting Providers: Frederic Cherry ; Bertha Langley ; Roula Chavez Discharge Orders/Prescriptions Prescriptions: New vancomycin in dextrose 5 % 500 mg/100 mL Piggyback 500 mg IV Q24H 40 Days Qty: 4000 0RF Rx Instructions: stop date 02/24/22 dx: ankle osteo weekly bmp, cbc, esr, vanc trough. Fax to [phone] Continued clopidogrel 75 mg tablet 75 mg PO DAILY atorvastatin 20 mg Tablet 20 mg PO QHS bisacodyl 10 mg Suppository 10 mg NC DAILY PRN (Reason: Constipation) pantoprazole 40 mg Tablet,Delayed Release (Dr/Ec) 40 mg PO DAILY levothyroxine 88 mcg Capsule 88 mcg PO DAILY acetaminophen 500 mg Tablet 1,000 mg PO Q6H PRN PRN (Reason: Pain Score 1-3) Qty: 0 0RF amlodipine 5 mg Tablet 5 mg PO BID Qty: 0 0RF polysaccharide iron complex [Ferrex 150] 150 mg iron Capsule 150 mg PO DAILY Qty: 0 0RF losartan 50 mg Tablet 50 mg PO BID Qty: 0 0RF ascorbic acid (vitamin C) [Vitamin C] 500 mg Tablet 500 mg PO DAILY guaifenesin 50 mg/5 mL Liquid 100 mg PO Q4H PRN (Reason: Cough) nystatin [Nyamyc] 100,000 unit/gram powder 1 applic topical TID Protocol: *Topical Application Instructions APPLICATION INSTRUCTIONS: Apply to Groin and under breast insulin lispro 100 unit/mL Insulin Pen 5 unit SUBCUT DAILY insulin lispro 100 unit/mL Insulin Pen See Protocol SUBCUT ACHS Protocol: 6. Sliding Scale Insulin Custom Condition: 180-200 Dose/Route: 2 Condition: 201-250 Dose/Route: 3 Condition: 251-300 Dose/Route: 4 Condition: 301-350 Dose/Route: 5 Condition: 351-400 Dose/Route: 6 Condition: 401-450 Dose/Route: 7 Protocol Text: Custom Sliding Scale sennosides-docusate sodium [Stool Softener-Stimulant Laxat] 8.6-50 mg tablet 1 tab PO Q6H PRN PRN (Reason: Constipation) tramadol 50 mg tablet 50 mg PO Q8H PRN PRN (Reason: Pain Score 1-10) hydralazine 50 mg tablet 25 mg PO BID metoprolol tartrate 25 mg tablet 12.5 mg PO BID insulin glargine-yfgn 100 unit/mL (3 mL) insulin pen 18 unit subcut QHS Discontinued doxycycline monohydrate 100 mg Capsule 100 mg PO BID Referrals / Follow Up: Billie De Leon MD [Primary Care Provider] -
--- NOTE | 2022-01-15 17:24 | PCM.DC.SUM ---
Providers Date of Admission: 01/13/22 Date of Discharge: 01/15/22 Primary Care Physician: Dr. Billie De Leon MD Consultations 01/13/22 12:38 Consult: Hospitalist Routine Consulting Provider: Bertha Langley Reason for Consult: Medical management of diabetes EMERGENT Consult: No Notified: Yes Date Notified: 01/13/22 Time Notified: 14:38 Method of Notification: Text Consult: Infectious Disease Routine Consulting Provider: Frederic Cherry Reason for Consult: Left ankle osteomyelitis EMERGENT Consult: No Notified: Yes Date Notified: 01/13/22 Time Notified: 13:02 Method of Notification: Text Consult: Onc/Wound/transplanter orchid Routine Comment: Reason for Consult:: left lateral ankle wound Reason For Visit: OSTEOMYELITIS LEFT ANKLE Diagnosis Discharge Diagnosis (1) Osteomyelitis of left ankle: Status: Acute Code(s): M86.9 - Osteomyelitis, unspecified (2) Diabetes mellitus: Status: Acute Code(s): E11.9 - Type 2 diabetes mellitus without complications (3) Status post open reduction with internal fixation (ORIF) of fracture of ankle: Status: Acute Code(s): Z98.890 - Other specified postprocedural states; Z87.81 - Personal history of (healed) traumatic fracture Plan Re-evaluated today. Radiographs were taken yesterday in office - hardware was noted to be intact - reviewed CT scan results - hardware intact, fractures healing, no evidence of soft tissue emphysema or abscess. Clinically the cellulitis continues to improved. The hardware is exposed left ankle. Culture has been obtained - results pending but so far growing staph aureus and strep. ID/Dr. Cherry has been consulted - appreciate assistance with case - continue with antibiotic therapy. Consulted vascular surgery due to poor healing of the left lateral ankle wound in setting of peripheral arterial disease.? Patient was evaluated by Dr. Russo on 12/21/2021 at which time the plan to pursue conservative treatment due to her poor health status and wound improvement noted at that time - re-consulted Dr. Russo - however he will not be able to see patient until next week - there is no evidence of acute ischemia at this time. Patient to maintain a nonweightbearing status to her left lower extremity.? Patient receiving heparin twice daily for DVT prophylaxis.? Patient will have SCDs on the right lower extremity. Plan at this time does not include any hardware removal, would like vascular evaluation first, and also attempt antibiotic therapy and more diligent wound care and offloading (patient failed to follow up as outpatient to receive proper wound care). Wound care left ankle - Luzmaria, gauze, kerlix daily dressing changes. There is a dry eschar to left heel with will be covered with dry gauze. Keep left lateral ankle offloaded at all times. Keep heels offloaded at all times - she has offloaded foam boots to wear. Medications at Discharge Home Medications clopidogrel 75 mg tablet 75 mg PO DAILY Check with primary doctor 08/22/21 atorvastatin 20 mg tablet 20 mg PO QHS Cholesterol 10/24/21 bisacodyl 10 mg rectal suppository 10 mg [place] DAILY PRN Constipation 10/24/21 levothyroxine 88 mcg capsule 88 mcg PO DAILY Thyroid 10/24/21 pantoprazole 40 mg tablet,delayed release 40 mg PO DAILY GERD 10/24/21 acetaminophen 500 mg tablet 1,000 mg PO Q6H PRN PRN Pain Score 1-3 #0 tabs 11/12/21 amlodipine 5 mg tablet 5 mg PO BID #0 tabs 11/12/21 losartan 50 mg tablet 50 mg PO BID #0 tabs 11/12/21 polysaccharide iron complex 150 mg iron capsule (Ferrex) 150 mg PO DAILY #0 caps 11/12/21 ascorbic acid (vitamin C) 500 mg tablet (Vitamin C) 500 mg PO DAILY 12/08/21 guaifenesin 50 mg/5 mL oral liquid 100 mg PO Q4H PRN Cough 12/08/21 nystatin 100,000 unit/gram topical powder (Nyamyc) 1 applic topical TID 12/08/21 hydralazine 50 mg tablet 25 mg PO BID 01/13/22 insulin glargine-yfgn 100 unit/mL (3 mL) subcutaneous pen 18 unit subcut QHS 01/13/22 insulin lispro 100 unit/mL subcutaneous pen 5 unit subcut DAILY Check with primary doctor 01/13/22 insulin lispro 100 unit/mL subcutaneous pen See Protocol subcut ACHS 01/13/22 metoprolol tartrate 25 mg tablet 12.5 mg PO BID 01/13/22 sennosides 8.6 mg-docusate sodium 50 mg tablet (Stool Softener-Stimulant Laxative) 1 tab PO Q6H PRN PRN Constipation 01/13/22 tramadol 50 mg tablet 50 mg PO Q8H PRN PRN Pain Score 1-10 01/13/22 vancomycin 500 mg/100 mL in dextrose 5 % intravenous piggyback 500 mg IV Q24H 40 days #4,000 mL 01/15/22 Hospital Course Summary of Care Provided Hospital Course: Left ankle infection. CT scan negative for gas or abscess. Patient received IV antibiotics for left ankle hardware infection, along with wound care and significant improvement noted. Patient seen by Dr. Cherry from [place], and patient will need to follow up with vascular, Dr. Russo for further evaluation as outpatient. Medical Records Data Medical Nutrition Assessment Dietitian: Malnutrition Criteria Met Start: 01/14/22 14:01 Freq: Status: Active Protocol: Document 01/14/22 14:01 (Rec: 01/14/22 14:01 [id number]) Nutrition Malnutrition Evidence of Malnutrition Exists Yes Malnutrition (severe): Acute Illness/Injury Evidenced By Suboptimal Energy Intake ( Severe),Weight Loss (Severe) Clinical Problem Acute Disease or Injury Related Malnutrition Etiology severe, acute malnutrition related to inadequate energy intake d/t recent surgery, nausea/emesis Signs/Symptoms as evidenced by unintentional wt loss of 28.1#/14% wt loss x 2.5 months; estimated PO intake meeting <50% of estimated energy needs x 2.5 weeks [employer] Status Active Problem Recommendation Dietitian Recommendations/Changes continue regular diet- will order easy to chew textures, pureed soups per pt request; ensure enlive 120mL 4x/day and Moris BID for additional calories/protein if consumed given malnutrition, delayed wound healing Weight / BMI Weight Weight: 76.657 kg Body Mass Index (BMI) 29.9 ABG / Lab / Microbiology Data Result Diagrams: 01/14/22 05:00 01/15/22 06:10 Laboratory: Laboratory Results - last 24 hr 01/14/22 21:41: POC Glucose 207 H 01/15/22 06:10: Sodium 139, Potassium 4.3, Chloride 107, Carbon Dioxide 26.0, Anion Gap 6, BUN 18, Creatinine 0.96, Estim Creat Clear Calc 36.09, Est GFR (MDRD) Af Amer 71, Est GFR (MDRD) Non-Af 58 L, BUN/Creatinine Ratio 18.7, Glucose 207 H, Calcium 8.8 01/15/22 07:31: POC Glucose 242 H 01/15/22 11:08: POC Glucose 208 H 01/15/22 13:02: Vancomycin Trough 8.5 01/15/22 16:05: POC Glucose 177 H Microbiology: Microbiology 01/13/22 13:00 Wound - Ankle Gram Stain - Final 01/13/22 13:00 Wound - Ankle Wound Culture - Preliminary Streptococcus pyogenes Staphylococcus aureus 01/13/22 13:00 Wound - Ankle Anaerobic Culture - Preliminary No anaerobic bacteria isolated. 01/13/22 Unknown Wound - Ankle Gram Stain - Final 01/13/22 Unknown Wound - Ankle Wound Culture - Preliminary Staphylococcus aureus Streptococcus group A D/C Instructions Please Follow Up With: Jeremy Russo MD Meaningful Use Info Meaningful Use Diagnoses (Choose all that apply): None applicable Discharge Plan Admission Admit Date/Time: 01/13/22 15:19 Attending Provider: Pal Francisco Primary Care Provider: Billie De Leon Consulting Providers: Frederic Cherry ; Bertha Langley ; Roula Chavez Discharge Orders/Prescriptions Prescriptions: New vancomycin in dextrose 5 % 500 mg/100 mL Piggyback 500 mg IV Q24H 40 Days Qty: 4000 0RF Rx Instructions: stop date 02/24/22 dx: ankle osteo weekly bmp, cbc, esr, vanc trough. Fax to [phone] Continued clopidogrel 75 mg tablet 75 mg PO DAILY atorvastatin 20 mg Tablet 20 mg PO QHS bisacodyl 10 mg Suppository 10 mg NE DAILY PRN (Reason: Constipation) pantoprazole 40 mg Tablet,Delayed Release (Dr/Ec) 40 mg PO DAILY levothyroxine 88 mcg Capsule 88 mcg PO DAILY acetaminophen 500 mg Tablet 1,000 mg PO Q6H PRN PRN (Reason: Pain Score 1-3) Qty: 0 0RF amlodipine 5 mg Tablet 5 mg PO BID Qty: 0 0RF polysaccharide iron complex [Ferrex 150] 150 mg iron Capsule 150 mg PO DAILY Qty: 0 0RF losartan 50 mg Tablet 50 mg PO BID Qty: 0 0RF ascorbic acid (vitamin C) [Vitamin C] 500 mg Tablet 500 mg PO DAILY guaifenesin 50 mg/5 mL Liquid 100 mg PO Q4H PRN (Reason: Cough) nystatin [Nyamyc] 100,000 unit/gram powder 1 applic topical TID Protocol: *Topical Application Instructions APPLICATION INSTRUCTIONS: Apply to Groin and under breast insulin lispro 100 unit/mL Insulin Pen 5 unit SUBCUT DAILY insulin lispro 100 unit/mL Insulin Pen See Protocol SUBCUT ACHS Protocol: 6. Sliding Scale Insulin Custom Condition: 180-200 Dose/Route: 2 Condition: 201-250 Dose/Route: 3 Condition: 251-300 Dose/Route: 4 Condition: 301-350 Dose/Route: 5 Condition: 351-400 Dose/Route: 6 Condition: 401-450 Dose/Route: 7 Protocol Text: Custom Sliding Scale sennosides-docusate sodium [Stool Softener-Stimulant Laxat] 8.6-50 mg tablet 1 tab PO Q6H PRN PRN (Reason: Constipation) tramadol 50 mg tablet 50 mg PO Q8H PRN PRN (Reason: Pain Score 1-10) hydralazine 50 mg tablet 25 mg PO BID metoprolol tartrate 25 mg tablet 12.5 mg PO BID insulin glargine-yfgn 100 unit/mL (3 mL) insulin pen 18 unit subcut QHS Discontinued doxycycline monohydrate 100 mg Capsule 100 mg PO BID Referrals / Follow Up: Billie De Leon MD [Primary Care Provider] -
== END 2022-01-15 20:30 | disposition skilled nursing facility (03) | DRG 559 ==
PROVIDERS: Internal Medicine; Admitting Provider Podiatrist; PCP Internal Medicine; Visit Provider Podiatrist
DX: T84.69XA Infection and inflammatory reaction due to internal fixation device of other site, initial encounter (principal); E43 Unspecified severe protein-calorie malnutrition; M86.172 Other acute osteomyelitis, left ankle and foot; L97.322 Non-pressure chronic ulcer of left ankle with fat layer exposed; L02.416 Cutaneous abscess of left lower limb; N17.9 Acute kidney failure, unspecified; L03.116 Cellulitis of left lower limb; E11.22 Type 2 diabetes mellitus with diabetic chronic kidney disease; D64.9 Anemia, unspecified; E11.69 Type 2 diabetes mellitus with other specified complication; E11.51 Type 2 diabetes mellitus with diabetic peripheral angiopathy without gangrene; F03.90 Unspecified dementia, unspecified severity, without behavioral disturbance, psychotic disturbance, mood disturbance, and anxiety; J44.9 Chronic obstructive pulmonary disease, unspecified; Z79.4 Long term (current) use of insulin; E03.9 Hypothyroidism, unspecified; E78.5 Hyperlipidemia, unspecified; K21.9 Gastro-esophageal reflux disease without esophagitis; N18.2 Chronic kidney disease, stage 2 (mild); I12.9 Hypertensive chronic kidney disease with stage 1 through stage 4 chronic kidney disease, or unspecified chronic kidney disease; I65.29 Occlusion and stenosis of unspecified carotid artery; Z86.73 Personal history of transient ischemic attack (TIA), and cerebral infarction without residual deficits; F32.A Depression, unspecified; Z87.440 Personal history of urinary (tract) infections; Z79.899 Other long term (current) drug therapy; Z87.891 Personal history of nicotine dependence; Y83.1 Surgical operation with implant of artificial internal device as the cause of abnormal reaction of the patient, or of later complication, without mention of misadventure at the time of the procedure; Z66 Do not resuscitate; Z68.29 Body mass index [BMI] 29.0-29.9, adult
CPT/HCPCS: 36415; 36569; 71045; 71046; 73700; 80048; 80053; 80202; 81001; 82962; 85025; 85652; 86140; 87070; 87075; 87077; 87186; 87205; 87426; 87640; 97802; J7030; J7050; A4216

== ENCOUNTER → 2022-01-18 | Outpatient (REF) | payer MEDICARE, MEDICAID, SELFPAY ==
[2022-01-18 09:06] LABS: Absolute Lymphocyte Count 2.65 X10^3/uL (0.83-4.51); Absolute Neutrophil Count 5.2 X10^3/uL (2.0-7.7); Basophil# 0.05 X10^3/uL; Basophil% 0.5 % (0-1); Eosinophil# 0.36 X10^3/uL; Eosinophils% 3.9 % (0-5); Hematocrit 33.3 % (37-47); Hemoglobin 10.2 g/dL (12.0-15.0); Lymphocyte # 2.65 X10^3/ul (0.83-4.51); Lymphocyte % 28.6 % (19-41); Mean Corp Hgb Conc 30.6 g/dL (32-36); Mean Corpuscular Hgb 27.4 pg (27.0-32.0); Mean Corpuscular Volume 89.5 fL (81-99); Mean Platelet Vol. 10.6 fl (6.2-12.0); Monocyte# 0.88 X10^3/uL; Monocyte% 9.5 % (0-10); NRBC Flagged by Analyzer 0 % (0-5); Neutrophil # 5.22 X10^3/uL (2.7-7.7); Neutrophil % 56.2 % (47-70); Platelet Count 411 K/mm3 (150-450); RBC Distribution Width CV 14.7 % (11.6-14.6); RBC Distribution Width SD 46.9 fl (35.1-43.9); Red Blood Count 3.72 M/mm3 (4.2-5.4); White Blood Count 9.3 K/mm3 (4.4-11.0)
[2022-01-18 09:19] LABS: Anion Gap 6 (5-15); BUN 12 mg/dL (7-18); BUN/Creat Ratio 12.8 RATIO (10-20); CRP 8.39 mg/L (0.0-3.0); Calcium,Total 9.3 mg/dL (8.5-10.1); Chloride 103 mmol/L (98-107); Creatinine, Serum 0.94 mg/dL (0.55-1.02); EST Glomerular Filtration Rate 61 mL/min (>60); Est Glom Filt Rate - Afr Amer 73 mL/min (>60); Glucose 216 mg/dL (74-106); Potassium 3.7 mmol/L (3.5-5.1); Sodium Level 139 mmol/L (136-145)
[2022-01-18 09:25] LABS: Vancomycin, Trough Level 8.5 ug/mL (5.0-15.0)
[2022-01-18 09:42] LABS: Erythrocyte Sedimentation Rate 52 mm/hr (0-30)
== END ==
LOC: OLS.SW500 05:00
PROVIDERS: PCP Internal Medicine; Visit Provider Internal Medicine
DX: M86.9 Osteomyelitis, unspecified (principal)
CPT/HCPCS: 80048; 80202; 85025; 85652; 86140

== ENCOUNTER → 2022-01-20 | Outpatient (REF) | payer MEDICARE, MEDICAID, SELFPAY ==
[2022-01-20 13:30] LABS: Hematocrit 32.1 % (37-47); Hemoglobin 9.8 g/dL (12.0-15.0); Mean Corp Hgb Conc 30.5 g/dL (32-36); Mean Corpuscular Hgb 27.6 pg (27.0-32.0); Mean Corpuscular Volume 90.4 fL (81-99); Mean Platelet Vol. 10.8 fl (6.2-12.0); Platelet Count 402 K/mm3 (150-450); RBC Distribution Width CV 15.1 % (11.6-14.6); RBC Distribution Width SD 49.8 fl (35.1-43.9); Red Blood Count 3.55 M/mm3 (4.2-5.4); White Blood Count 14.9 K/mm3 (4.4-11.0)
== END ==
LOC: OLS.SW500 13:00
PROVIDERS: PCP Internal Medicine; Visit Provider Internal Medicine
DX: N93.9 Abnormal uterine and vaginal bleeding, unspecified (principal)
CPT/HCPCS: 36415; 85027

== ENCOUNTER 2022-02-10 06:55 | Day surgery (SDC) | payer MEDICARE, MEDICAID, SELFPAY ==
--- NOTE | 2022-02-10 08:07 | HP.PCM_ITS ---
History and Physical Chief Complaint: left ANKLE pain Is patient in pain?: Yes Allergies banana Allergy (Verified 01/26/22 14:32) Hivespeanut Allergy (Verified 01/26/22 14:32) HivesPenicillins Allergy (Verified 01/26/22 14:32) OtherSulfa (Sulfonamide Antibiotics) Allergy (Verified 01/26/22 14:32) Swelling Medications clopidogrel 75 mg tablet 75 mg PO DAILY Check with primary doctor 08/22/21 [History Confirmed 01/26/22] atorvastatin 20 mg tablet 20 mg PO QHS Cholesterol 10/24/21 [History Confirmed 01/26/22] bisacodyl 10 mg rectal suppository 10 mg [place] DAILY PRN Constipation 10/24/21 [History Confirmed 01/26/22] levothyroxine 88 mcg capsule 88 mcg PO DAILY Thyroid 10/24/21 [History Confirmed 01/26/22] pantoprazole 40 mg tablet,delayed release 40 mg PO DAILY GERD 10/24/21 [History Confirmed 01/26/22] acetaminophen 500 mg tablet 1,000 mg PO Q6H PRN PRN Pain Score 1-3 #0 tabs 11/12/21 [Rx Confirmed 01/26/22] amlodipine 5 mg tablet 5 mg PO BID #0 tabs 11/12/21 [Rx Confirmed 01/26/22] losartan 50 mg tablet 50 mg PO BID #0 tabs 11/12/21 [Rx Confirmed 01/26/22] polysaccharide iron complex 150 mg iron capsule (Ferrex) 150 mg PO DAILY #0 caps 11/12/21 [Rx Confirmed 01/26/22] ascorbic acid (vitamin C) 500 mg tablet (Vitamin C) 500 mg PO DAILY 12/08/21 [History Confirmed 01/26/22] guaifenesin 50 mg/5 mL oral liquid 100 mg PO Q4H PRN Cough 12/08/21 [History Confirmed 01/26/22] nystatin 100,000 unit/gram topical powder (Nyamyc) 1 applic topical TID 12/08/21 [History Confirmed 01/26/22] hydralazine 50 mg tablet 25 mg PO BID 01/13/22 [History Confirmed 01/26/22] insulin glargine-yfgn 100 unit/mL (3 mL) subcutaneous pen 18 unit subcut QHS 01/13/22 [History Confirmed 01/26/22] insulin lispro 100 unit/mL subcutaneous pen See Protocol subcut ACHS 01/13/22 [History Confirmed 01/26/22] metoprolol tartrate 25 mg tablet 12.5 mg PO BID 01/13/22 [History Confirmed 01/26/22] sennosides 8.6 mg-docusate sodium 50 mg tablet (Stool Softener-Stimulant Laxative) 1 tab PO Q6H PRN PRN Constipation 01/13/22 [History Confirmed 01/26/22] tramadol 50 mg tablet 50 mg PO Q8H PRN PRN Pain Score 1-10 01/13/22 [History Confirmed 01/26/22] insulin lispro 100 unit/mL subcutaneous pen (Humalog KwikPen (U-100) Insulin) 5 unit (0.05 mL) subcut TIDAC #0 mL 01/15/22 [Rx Confirmed 01/26/22] vancomycin 500 mg/100 mL in dextrose 5 % intravenous piggyback 500 mg IV Q24H 40 days #4,000 mL 01/15/22 [Rx Confirmed 01/26/22] PFSH Medical History? Carotid artery occlusion Cerebral infarct COPD (chronic obstructive pulmonary disease) Dementia Depression Diabetes GERD (gastroesophageal reflux disease) Hearing loss Hyperlipemia Kidney disease Normocytic anemia Obesity Thyroid disease UTI (urinary tract infection) Weakness Surgical History? Status post open reduction with internal fixation (ORIF) of fracture of ankle Social History? household members:? none housing:? assisted living facility Smoking Status:? Former smoker alcohol intake:? never substance use type:? does not use ROS General General: Yes weakness; No weight change, appetite, fatigue, colon cancer or breast cancer HEENT HEENT: No difficulty swallowing, eye injury, eye surgery, swollen glands or hoarseness Endo Endocrine: Yes thyroid disease and diabetes mellitus; No thyroid cancer, Hair loss, heat intolerance or cold intolerance Skin Skin: No rash or changing moles Breast Breast: No left breast lump, right breast lump, nipple discharge, breast pain, abnormal mammogram, abnormal US or breast enlargement Musc Musculoskeletal: No back problems, arthritis, rheumatoid arthritis, gout or joint pain Cardio Cardiovascular: Yes high blood pressure; No murmur, pacemaker, heart disease, atrial fibrillation, heart attack, heart stent, palpitations, shortness of breat with exertion or chest pain Psych Psychiatric: Yes depression; No anxiety or hearing voices Resp Respiratory: No shortness of breath, No sleep apnea, No cough, Yes COPD, No asthma, No emphysema and No wheezing Gastro Gastrointestinal: No abdominal pain, No nausea or vomiting, No diarrhea, No constipation, No blood in stool, Yes acid reflux, No hemorrhoids, No ulcers, No gallbladder problem and No black,tarry stools Conner Hematologic: No blood thinners, No blood disorders, No bleeding, Yes anemia and No blood clots Neuro Neurologic: No system reviewed and no additional complaints, except as documented, No as per HPI, No abnormal gait, No abnormal hearing, No abnormal movements, No abnormal speech, No behavioral changes, No burning sensations, No confusion, No convulsions, No disequilibrium, Yes dizziness, No localized weakness, No frequent falls, No headache(s), No lack of coordination, No loss of vision, Yes memory loss, No numbness, No other visual disturbances, No radicular pain, No restless legs, No sensory deficit, No syncope, No tingling, No tremor(s), Yes weakness and No other Assessment and Plan Assessment and Plan (1) Peripheral vascular disease, unspecified: ?Status:?Chronic ?Plan: -wound worsened with interval infection -will plan angio, possible intervention; may be able to improve regional flow to lateral lower leg/foot Coding Level of Care Code Off vis,est,level 2 Diagnoses Peripheral vascular disease, unspecified? I73.9 Exam Const General: cooperative, healthy appearing, comfortable, no acute distress and well developed Nutritional Appearance: well nourished Orientation: alert, awake and oriented x3 HENMT Head: normocephalic and atraumatic Ears: hearing grossly normal bilaterally Nose: external nose normal Eyes General: appearance normal, both eyes and all related structures EOM: EOM intact bilaterally Neck Neck: normal visual inspection, full ROM and trachea midline Resp Effort & Inspection: normal respiratory effort, able to speak in complete sent ences, symmetric chest movement, no audible wheezes, not labored, no stridor and no use of accessory muscles Auscultation: clear to auscultation bilaterally Cardio Rate: regular rate Rhythm: regular rhythm Heart Sounds: no murmurs Skin General: no rashes or lesions noted and no erythema Wounds: wounds noted (Lateral lower leg- ~ 1cm, fibrinous base) Neuro Cranial Nerves: CN's II-XI intact bilaterally and EOM intact bilaterally Speech: speech normal Extremities Pulses: Absent: Left Dorsalis Pedis Pulse (monophasic doppler) and Left Posterior Tibial Pulse (biphasic doppler) Lower Extremity Edema: None: Bilateral Psych Appearance: grossly normal and well kempt Mental Status: mental status grossly normal Mood: congruent mood Speech and Movement: speech and movement normal Thought Content: normal Judgment: judgment good HPI HPI HPI: FANG HERNDON, is a 86 F who presents to the office today for follow up of LLE wounds. Since last being seen there is a new opening superior to initial wound with cloudy drainage. Initial wound now with less favorable appearance, and interval was admitted to hospital with wound infection. Currently on antibiotics. -plan angio, possible intervention
--- NOTE | 2022-02-10 11:43 | PCM.OPRPT ---
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 Resolved after intervention with no residual stenosis. 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 Surgeon: Jeremy Russo Type of Anesthesia: Sedation,Conscious Estimated Blood Loss (mL): 5 cc Description of Procedure: HPI: Patient is an 86-year-old female with a previous left ankle fracture with hardware placed with delayed healing of the surgical wound and wound infection. She had noninvasive vascular labs which revealed noncompressible vessels and mild to moderate disease to the ankle and then more significant pedal disease. Given her failure to heal her wound and recent infection she is taken now for angiogram with possible intervention to optimize perfusion to aid in wound healing. Description of procedure: Upon obtaining informed consent and verification of correct patient procedure site patient was taken to the [facility] where she was positioned prepped and draped in usual sterile fashion. Timeout was then performed and conscious sedation administered with intermittent Versed and fentanyl. Under ultrasound guidance the right common femoral artery was accessed in a retrograde fashion using micropuncture needle and wire. Through the micropuncture sheath injection femoral angiogram was performed which revealed satisfactory placement no extravasation or dissection. Through the micropuncture sheath Magic wire was advanced abdominal aorta and the micropuncture exchanged out for a short 5 [place] sheath. Omni Flush catheter was then advanced abdominal aorta and a digital subtraction aortogram pelvic angiogram was performed. We then used the Omni Flush catheter and a glide advantage wire to navigate into the contralateral iliac system advancing a catheter into the distal external iliac artery. This position sequential hand-injection subtraction angiography left lower extremity was performed which revealed disease in the SFA popliteal segment. Patient was then heparinized and lasted for 3 minutes and the glide advantage wire was readvanced and selectively navigated into the SFA popliteal artery. A glide catheter was then advanced over the glide advantage wire and a glide advantage exchanged out for an Amplatz wire. The 5 [place] sheath then exchanged out for a 6 [place] Ansell 55 sheath was advanced over the Amplatz wire ultimately advanced into the distal external iliac artery. The glide catheter was then readvanced and the Amplatz exchanged for a glide advantage which was then used to traverse the lesion. Once a glide catheter was brought in the lesion the wire was withdrawn and tissue traction angiography performed via the catheter in the distal popliteal artery confirmed satisfactory placement within the true lumen. The glide advantage was readvanced and the glide catheter withdrawn. So that the lesion was amenable to drug-coated balloon angioplasty so it was predilated with a 4 mm x 80 length angioplasty balloon that was inflated to nominal across the length of the lesion for 3 minutes per inflation. Next a [employer]2 Lutonix paclitaxel coated angioplasty balloon 5 mm x 150 was brought on the field and prepped for manufactures instructions. Is then advanced over the wire in position of the entirety of the length of the lesion and inflated to nominal for 3 minutes then deflated withdrawn. Completion angiography confirmed satisfactory resolution of the lesion with no residual stenosis no extravasation or dissection. Distal runoff was evaluated and preserved three-vessel runoff through the lower leg was observed. This point further no further invention was required so the 6 [place] sheath was exchanged for short 6 [place] sheath and a minx closure device was attempted to be deployed however the balloon ruptured so the sheath and closure device were withdrawn and then a pressure held for 20 minutes. Patient is satisfactory with hemostasis after manual pressure so she was taken the recovery room with anticipated return to her facility after 6 hours of bedrest. Radiographic interpretation: Abdominal aorta normal caliber with moderate diffuse calcified atherosclerosis. Right common iliac artery patent with moderate diffuse calcified atherosclerosis but no stenosis, right external iliac artery patent with moderate diffuse calcified atherosclerosis but no focal stenosis. Left common iliac artery patent with moderate diffuse calcified atherosclerosis but no stenosis, left external iliac artery patent with moderate diffuse calcified atherosclerosis with 1 focal area or significant though less than 50%. Left common femoral artery patent with moderate calcified atherosclerosis but no focal stenosis, left SFA moderate to severe diffuse atherosclerosis with no focal area of stenosis until the distal SFA popliteal transition with is approximately 15 cm long segment of more severe focal disease. Distal aspect of the lesion was near occlusive with greater than 90% stenosis. Mild calcification within the area of severe disease. Mid popliteal artery had minimal diffuse atherosclerosis but no focal stenosis in the tibial vessels were all patent with no focal area of stenosis. The posterior tibial artery was a dominant runoff to the foot and larger caliber. The pedal vasculature appeared to have severe disease with poor visualization of the pedal arch or any the digit vessels. Satisfactory resolution of the SFA popliteal stenosis after intervention. Complications None
== END 2022-02-10 15:06 | disposition skilled nursing facility (03) ==
LOC: CLSP 06:57
PROVIDERS: PCP Internal Medicine; Referring Provider Surgery Trauma Surgery; Visit Provider Surgery Trauma Surgery
DX: E11.51 Type 2 diabetes mellitus with diabetic peripheral angiopathy without gangrene (principal); F03.90 Unspecified dementia, unspecified severity, without behavioral disturbance, psychotic disturbance, mood disturbance, and anxiety; J44.9 Chronic obstructive pulmonary disease, unspecified; I70.212 Atherosclerosis of native arteries of extremities with intermittent claudication, left leg; Z79.4 Long term (current) use of insulin; Z86.73 Personal history of transient ischemic attack (TIA), and cerebral infarction without residual deficits; F32.A Depression, unspecified; K21.9 Gastro-esophageal reflux disease without esophagitis; E78.5 Hyperlipidemia, unspecified; Z87.440 Personal history of urinary (tract) infections; E07.9 Disorder of thyroid, unspecified; Z79.899 Other long term (current) drug therapy; Z87.891 Personal history of nicotine dependence
CPT/HCPCS: 36200; 36245; 37224; 75625; 75710; 76937; 99152; 99153; C1760; C2623; J7040; Q9967; A4216; C1725; C1769; C1887

== ENCOUNTER → 2022-02-15 | Outpatient (REF) | payer MEDICARE, MEDICAID, SELFPAY ==
[2022-02-15 09:06] LABS: Erythrocyte Sedimentation Rate 49 mm/hr (0-30)
[2022-02-15 09:10] LABS: Absolute Lymphocyte Count 2.41 X10^3/uL (0.83-4.51); Absolute Neutrophil Count 4.6 X10^3/uL (2.0-7.7); Basophil# 0.02 X10^3/uL; Basophil% 0.2 % (0-1); Eosinophil# 0.47 X10^3/uL; Eosinophils% 5.6 % (0-5); Hematocrit 32.4 % (37-47); Hemoglobin 10.1 g/dL (12.0-15.0); Lymphocyte # 2.41 X10^3/ul (0.83-4.51); Lymphocyte % 28.6 % (19-41); Mean Corp Hgb Conc 31.2 g/dL (32-36); Mean Corpuscular Volume 89.8 fL (81-99); Mean Platelet Vol. 11.5 fl (6.2-12.0); Monocyte# 0.88 X10^3/uL; Monocyte% 10.4 % (0-10); NRBC Flagged by Analyzer 0 % (0-5); Neutrophil # 4.63 X10^3/uL (2.7-7.7); Neutrophil % 54.8 % (47-70); Platelet Count 272 K/mm3 (150-450); RBC Distribution Width CV 14.6 % (11.6-14.6); Red Blood Count 3.61 M/mm3 (4.2-5.4); White Blood Count 8.4 K/mm3 (4.4-11.0)
[2022-02-15 09:15] LABS: Anion Gap 8 (5-15); BUN 32 mg/dL (7-18); BUN/Creat Ratio 20.6 RATIO (10-20); Calcium,Total 9.3 mg/dL (8.5-10.1); Chloride 102 mmol/L (98-107); Creatinine, Serum 1.55 mg/dL (0.55-1.02); EST Glomerular Filtration Rate 34 mL/min (>60); Est Glom Filt Rate - Afr Amer 41 mL/min (>60); Glucose 172 mg/dL (74-106); Potassium 3.8 mmol/L (3.5-5.1); Sodium Level 139 mmol/L (136-145)
== END ==
LOC: OLS.SW500 04:00
PROVIDERS: PCP Internal Medicine; Referring Provider Internal Medicine; Visit Provider Internal Medicine
DX: M86.9 Osteomyelitis, unspecified (principal); Z79.899 Other long term (current) drug therapy
CPT/HCPCS: 36415; 80048; 85025; 85652; 86140

== ENCOUNTER 2022-02-16 09:42 | Outpatient (RCR) | payer MEDICARE, MEDICAID, SELFPAY ==
[2021-12-21 00:38] VITALS: BP 97/41; PULSE 54; TEMP 35.3
[2022-02-16 09:53] VITALS: BP 122/53; PULSE 64; RESP 16; TEMP 36.2
--- NOTE | 2022-02-16 11:29 | PCM.WC.PN ---
History of Present Illness Date of Service: 02/16/22 Progress of Wound: 87-year-old female seen for follow-up on left lateral ankle ulceration and plantar heel pressure ulceration. Patient denies constitutional symptoms at this time she is receiving IV vancomycin due to a infection to her lateral ankle hardware. Patient has significant arterial disease and was revascularized by Dr. Russo on 02/10/2022. She had significant SFA disease which was opened up and he noted three-vessel runoff to the foot at that time. Patient notes pain limited to the ulceration sites has no other complaints at this time is residing in [facility]. Objective Data Objective Data Vital Signs: Vital Signs Temp Pulse Resp BP O2 Del Method 97.1 F L 64 16 122/53 H Room Air 02/16/22 09:53 02/16/22 09:53 02/16/22 09:53 02/16/22 09:53 02/16/22 09:53 Oxygen Delivery Method Room Air Physical Exam Narrative Neurovascular status unchanged from previous visit. Dermatologic: Full-thickness ulceration noted to the distal lateral left ankle incisional site with exposed hardware. Resolving erythema no evidence of purulent drainage resolving edema no other signs of infection at this time. Full-thickness wound noted to plantar heel with fibronecrotic base. No debridement performed no deep probing undermining or signs of infection to the site. Musculoskeletal rest rectus alignment of the left ankle. Full ankle joint range of motion however painful and guarded. No pain with calf squeeze or palpation of popliteal fossa. Debridement Note Debridement Note Post-Debridement Measurements and Additional Note: Post-Debridement Measurements/Treatment - Nurse 1 - General Ulcer Assessment Start: 02/16/22 09:53 Freq: Status: Active Protocol: TASNEEM Activity Type Activity Date Activity User E-sign Co-sign Detail Recorded Client Recorded Date Recorded By Document 02/16/22 09:53 [id number] 02/16/22 10:04 02/16/22 09:53 - Today's Visit Information Type of service Follow-up Visit (Physician/TRANSMISSION TESTER ) Arrival Mode Wheelchair Transfer Assistance Other Transfer Assist (Other) 2 Patient Identification Verified (Name & Yes ) Patient Requires Transmission-Based No Precautions Vital Signs Temperature (97.8 F-99.1 F) 97.1 F L Temperature Source Temporal Pulse Rate (60-100) 64 Pulse Location Monitor Respiratory Rate (12-18) 16 Respiratory rate source Observation Oxygen Delivery Method Room Air Blood Pressure (90/60-120/80) 122/53 H Blood Pressure Mean (mm Hg) 76 Source Monitor Position Sitting Blood Pressure Location Left Arm History Since Last Visit- (Skip if this is Patient's initial visit) Any new allergies or adverse reactions No Had a fall/change in ADL's that may No increase risk of falls Signs or symptoms of abuse and/or No neglect since last visit Have you been in the hospital since your No last visit? Has dressing in place as prescribed No Has compression in place as prescribed N/A Has offloadiing in place as prescribed No Experienced any changes in pain level or No management Left Footwear Other Footwear (Comment) Right Footwear Other Footwear (Comment) Other Footwear non skid socks Pain Scale: 0-10 Numeric Is Patient Pain Free? Yes WC - Nurse 1 - General Ulcer Measurement Start: 02/16/22 09:53 Freq: Status: Active Protocol: Activity Type Activity Date Activity User E-sign Co-sign Detail Recorded Client Recorded Date Recorded By Document 02/16/22 09:53 MW [id number] 02/16/22 10:04 MW 02/16/22 09:53 Wound Center Nurse 1 #2- L HEEL -Combined with other wound No -Current Size (cm) - Length 1.8 -Current Size (cm) - Width 1.7 -Current Size (cm) - Depth 0.2 -Total Square Cm 3.06 -Date of Last Picture (Recall this 02/16/22 field) -Photo Taken Yes -Epithelialization None Present -Tunneling No -Undermining/Tunneling No -Circular Undermining No -Exudate Amt Medium -Exudate Type Serosanguineous -Wound Margin Distinct, Outline Attached -Granulation Amt None Present (0 %) -Slough/Fibrin Yes -Necrosis Amt Large (67-100%) -Necrotic Tissue Type Eschar -Texture ([place]-wound Skin Appearance) Assessed, Scarring -Moisture ([place]-wound Skin Appearance) Assessed -Color ([place]-wound Skin Appearance) Assessed, Erythema -Temperature ([place]-wound Skin No Abnormality Appearance) (Pt Warm) -Tenderness on Palpation ([place]-wound Yes Skin Appearance) -Ulcer Cleansing Soap and Water -Foul Odor after Cleansing No -Anesthetic Used 5% Lidocaine Gel #1 Left lateral ankle -Combined with other wound No -Current Size (cm) - Length 0.9 -Current Size (cm) - Width 0.5 -Current Size (cm) - Depth 0.3 -Total Square Cm 0.45 -Date of Last Picture (Recall this 02/16/22 field) -Photo Taken Yes -Epithelialization None Present -Tunneling No -Undermining/Tunneling No -Circular Undermining No -Exudate Amt None Present -Wound Margin Distinct, Outline Attached -Granulation Amt None Present (0 %) -Slough/Fibrin No -Texture ([place]-wound Skin Appearance) Assessed -Moisture ([place]-wound Skin Appearance) Assessed -Color ([place]-wound Skin Appearance) Assessed, Erythema -Temperature ([place]-wound Skin No Abnormality Appearance) (Pt Warm) -Tenderness on Palpation ([place]-wound Yes Skin Appearance) -Ulcer Cleansing Soap and Water -Foul Odor after Cleansing No -Anesthetic Used 5% Lidocaine Gel -Wound Comment(s) wound bed is all exposed hardware Lower Limb Edema Present Yes Left Calf (cm) 31.6 Left Ankle (cm) 19.5 - Nurse 2 - General Ulcer CM Notes Start: 02/16/22 09:53 Freq: Status: Active Protocol: Activity Type Activity Date Activity User E-sign Co-sign Detail Recorded Client Recorded Date Recorded By Document 02/16/22 10:18 [id number] 02/16/22 10:22 02/16/22 10:18 Wound Center Nurse 2 #2- L HEEL -Correct Patient No -Correct Side, Site, Position No -Correct Procedure No -Procedure Performed No -Wound/Ulcer Outcome Not Healed #1 Left lateral ankle -Correct Patient No -Correct Side, Site, Position No -Correct Procedure No -Procedure Performed No -Wound/Ulcer Outcome Not Healed Pain Scale: 0-10 Numeric Is Patient Pain Free? Yes - Nurse 3 - General Ulcer D/C NN Start: 02/16/22 09:53 Freq: Status: Active Protocol: Activity Type Activity Date Activity User E-sign Co-sign Detail Recorded Client Recorded Date Recorded By Document 02/16/22 10:36 [facility] [id number] 02/16/22 10:36 [facility] 02/16/22 10:36 Wound Care Nurse 3 #2- L HEEL -Ulcer Cleansing Rinsed/ Irrigated with Saline -Foul Odor after Cleansing No -Primary Dressing Applied Other -Other Dressing HYDROGEL -Primary Dressing Covered/Secured with Dry Gauze & Roll Gauze, Secured with Tape -Other Covering HEEL HAT #1 Left lateral ankle -Ulcer Cleansing Rinsed/ Irrigated with Saline -Foul Odor after Cleansing No -Primary Dressing Applied Promogran Luzmaria Matter -Primary Dressing Covered/Secured with Dry Gauze & Roll Gauze, Secured with Tape -Promogran Luzmaria Matter 1 Treatment Response Procedure Tolerated Well Pain Scale: 0-10 Numeric Is Patient Pain Free? 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 Wounds appear to be improving at this time. Infection resolving. Patient receiving IV vancomycin per infectious disease. Patient can weight-bear in her cam walking boot assisted by walker for transfer purposes. Patient should use PRAFO offloading boot to her left heel to offload the heel while in bed. Patient receiving twice daily dressing changes. We will transition to dressing changes with Luzmaria and Santyl to plantar heel. Along with DSD. Will patient received arterial intervention with three-vessel runoff. Significant improvement in the wounds noted at this time as the superior incisional wound has completely healed and the distal incisional wound has decreased in size. Will progress to with more aggressive debridement as patient tolerates it. Patient will follow up in 1 week.
== END 2022-02-19 23:59 | disposition home or self-care (01) ==
LOC: WC 09:42
PROVIDERS: PCP Internal Medicine; Referring Provider Podiatrist; Visit Provider Podiatrist
DX: L97.324 Non-pressure chronic ulcer of left ankle with necrosis of bone (principal); I73.9 Peripheral vascular disease, unspecified
CPT/HCPCS: 99213; G0463

== ENCOUNTER 2022-02-16 17:22 | Emergency (ER) | payer MEDICARE, MEDICAID, SELFPAY ==
[2022-02-16 17:24] VITALS: BP 131/59; PULSE 86; RESP 16; TEMP 36.3; O2SAT 94; BMI 26.5
--- NOTE | 2022-02-16 18:04 | CT_ITS ---
STUDY: CT BRAIN WITHOUT CONTRAST REASON FOR EXAM: Female, 87 years old. facial droop RADIATION DOSAGE (If Supplied By Facility): CTDIvol = ( 44.99 ) mGy, DLP = ( 796.11 ) mGycm TECHNIQUE: Transaxial CT imaging of the brain was performed without administration of intravenous contrast material. Individualized dose optimization techniques were used for this CT. COMPARISON: No relevant priors. FINDINGS: Normal soft tissue structures. Normal calvarium. Calcific plaquing of cavernous carotids. Moderate atrophy and periventricular white matter ischemic changes. 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 . Normal basal ganglia and thalami. Normal brainstem. Normal cerebellum. There is no intracranial hemorrhage. There are no findings of an acute ischemic infarction. Postsurgical changes of the orbits Normal visualized paranasal sinuses. CT/Brain/Head without Contrast IMPRESSION: Moderate atrophy and periventricular white matter ischemic changes with old right parietal lobe infarct. No acute bleed. If concern for acute infarct MRI recommended Electronically Signed: Mart Blackmon MD at 18:52 EDT ,
--- NOTE | 2022-02-16 18:05 | EX.ED.DYSGE1 ---
HPI History of Present Illness Chief Complaint: General Illness Informant: EMS and SNF Narrative Narrative: EMS reportedly called for low blood sugar and possible stroke. ECF staff states that her blood sugar was 74 which is quite low for her. They felt that she had a right facial droop. They gave her a dose of glucagon and called EMS. On squad arrival they reported no focal stroke findings. Blood sugar on squad report is 109. Patient has baseline dementia and is not able to provide history. When asked if she has any pain she shakes her head no. PFSH PFSH Medical History Carotid artery occlusion Cerebral infarct COPD (chronic obstructive pulmonary disease) Dementia Depression Diabetes GERD (gastroesophageal reflux disease) Hearing loss Hyperlipemia Kidney disease Normocytic anemia Obesity Thyroid disease UTI (urinary tract infection) Weakness Home Medications clopidogrel 75 mg tablet 75 mg PO DAILY Check with primary doctor 08/22/21 [History Last Taken Unknown] atorvastatin 20 mg tablet 20 mg PO QHS Cholesterol 10/24/21 [History Last Taken Unknown] bisacodyl 10 mg rectal suppository 10 mg CO DAILY PRN Constipation 10/24/21 [History Last Taken Unknown] levothyroxine 88 mcg capsule 88 mcg PO DAILY Thyroid 10/24/21 [History Last Taken Unknown] pantoprazole 40 mg tablet,delayed release 40 mg PO DAILY GERD 10/24/21 [History Last Taken Unknown] acetaminophen 500 mg tablet 1,000 mg PO Q6H PRN PRN Pain Score 1-3 #0 tabs 11/12/21 [Rx Last Taken Unknown] losartan 50 mg tablet 50 mg PO BID #0 tabs 11/12/21 [Rx Last Taken Unknown] polysaccharide iron complex 150 mg iron capsule (Ferrex) 150 mg PO DAILY #0 caps 11/12/21 [Rx Last Taken Unknown] ascorbic acid (vitamin C) 500 mg tablet (Vitamin C) 500 mg PO DAILY 12/08/21 [History Last Taken Unknown] guaifenesin 50 mg/5 mL oral liquid 100 mg PO Q4H PRN Cough 12/08/21 [History Last Taken Unknown] nystatin 100,000 unit/gram topical powder (Nyamyc) 1 applic topical TID 12/08/21 [History Last Taken Unknown] hydralazine 50 mg tablet 25 mg PO QHS 01/13/22 [History Last Taken Unknown] insulin glargine-yfgn 100 unit/mL (3 mL) subcutaneous pen 26 unit subcut QHS 01/13/22 [History Last Taken Unknown] insulin lispro 100 unit/mL subcutaneous pen See Protocol subcut ACHS 01/13/22 [History Last Taken Unknown] metoprolol tartrate 25 mg tablet 12.5 mg PO BID 01/13/22 [History Last Taken Unknown] sennosides 8.6 mg-docusate sodium 50 mg tablet (Stool Softener-Stimulant Laxative) 1 tab PO BID 01/13/22 [History Last Taken Unknown] tramadol 50 mg tablet 50 mg PO Q8H PRN PRN Pain Score 1-10 01/13/22 [History Last Taken Unknown] furosemide 20 mg tablet (Lasix) 20 mg PO DAILY 02/16/22 [History Last Taken Unknown] insulin lispro 100 unit/mL subcutaneous pen (Humalog KwikPen (U-100) Insulin) 12 unit subcut TIDAC 02/16/22 [History Last Taken Unknown] vancomycin 500 mg/100 mL in dextrose 5 % intravenous piggyback 750 mg IV Q24H 02/16/22 [History Last Taken Unknown] Allergy/AdvReac Type Severity Reaction Status Date / Time banana Allergy Hives Verified 02/09/22 07:57 peanut Allergy Hives Verified 02/09/22 07:57 Penicillins Allergy Other Verified 02/09/22 07:57 Sulfa (Sulfonamide Allergy Swelling Verified 02/09/22 07:57 Antibiotics) Surgical History Status post open reduction with internal fixation (ORIF) of fracture of ankle Social History household members: none housing: assisted living facility Smoking Status: Former smoker alcohol intake: never substance use type: does not use ROS ROS ED ROS Narrative Patient unable to provide secondary to baseline dementia. EXAM Physical Exam Const Vital Signs: 02/16/22 17:24 02/16/22 17:31 02/16/22 19:38 Temperature 97.3 F L Temperature Source Oral Pulse Rate 86 59 L Respiratory Rate 16 16 Respiratory Pattern Normal Blood Pressure 131/59 H Blood Pressure Mean 83 Pulse Ox 94 99 Oxygen Delivery Method Room Air Room Air 02/16/22 20:41 Temperature Temperature Source Pulse Rate 56 L Respiratory Rate 17 Respiratory Pattern Blood Pressure 153/61 H Blood Pressure Mean 91 Pulse Ox 96 Oxygen Delivery Method Room Air Positive well nourished and well developed General Appearance ED: well developed HEENT Reports normocephalic and head/scalp atraumatic Eyes PERRL and EOMs intact bilaterally Neck supple Chest Wall inspection of chest normal and palpation of chest normal Resp normal respiratory effort and clear to auscultation bilaterally Cardio regular rate and regular rhythm GI normal to inspection, nondistended, normoactive bowel sounds Palpation: soft Extremity Extremity Narrative: Left foot wound wrapped with Kerlix. Neuro Neuro Narrative: Patient able to follow commands such as smiling and raising her eyebrows. Equal hand grasp bilaterally. Sensorium / Orientation: alert MDM MDM MDM Narrative Medical decision making narrative: Lab work obtained along with chest x-ray and head CT. Repeat blood sugar the time my exam reveals a BDT of 200. Lab Data Attestation: I reviewed the patient's lab results. Labs: Laboratory Results - last 24 hr 02/16/22 02/16/22 02/16/22 18:00 18:25 18:25 WBC 22.8 H RBC 4.00 L Hgb 11.2 L Hct 35.9 L MCV 89.8 MCH 28.0 MCHC 31.2 L RDW Std Deviation 47.4 H RDW Coeff of Suzy 14.4 Plt Count 306 MPV 11.2 Immature Gran % (Auto) 0.900 Neut % (Auto) 87.9 H Lymph % (Auto) 5.8 L Hyde % (Auto) 4.6 Eos % (Auto) 0.6 Baso % (Auto) 0.2 Absolute Neuts (auto) 20.0 H Absolute Lymphs (auto) 1.32 Nucleated RBC % 0 Differential Comment SCANNED Sodium 136 Potassium 4.0 Chloride 99 Carbon Dioxide 28.0 Anion Gap 9 BUN 31 H Creatinine 1.55 H Estim Creat Clear Calc 26.77 Est GFR (MDRD) Af Amer 41 L Est GFR (MDRD) Non-Af 34 L BUN/Creatinine Ratio 20.0 Glucose 215 H Calcium 10.0 Urine Color Urine Clarity Urine pH Ur Specific [place] Urine Protein Urine Glucose (UA) Urine Ketones Urine Occult Blood Urine Nitrite Urine Bilirubin Urine Urobilinogen Ur Leukocyte Esterase Urine RBC Urine WBC Ur Squamous Epith Cells Urine Bacteria Urine Mucus POC Glucose 200 H 02/16/22 19:16 WBC RBC Hgb Hct MCV MCH MCHC RDW Std Deviation RDW Coeff of Suzy Plt Count MPV Immature Gran % (Auto) Neut % (Auto) Lymph % (Auto) Hyde % (Auto) Eos % (Auto) Baso % (Auto) Absolute Neuts (auto) Absolute Lymphs (auto) Nucleated RBC % Differential Comment Sodium Potassium Chloride Carbon Dioxide Anion Gap BUN Creatinine Estim Creat Clear Calc Est GFR (MDRD) Af Amer Est GFR (MDRD) Non-Af BUN/Creatinine Ratio Glucose Calcium Urine Color Yellow Urine Clarity Clear Urine pH 5.0 Ur Specific [place] 1.010 Urine Protein Negative Urine Glucose (UA) Normal Urine Ketones Negative Urine Occult Blood Negative Urine Nitrite Negative Urine Bilirubin Negative Urine Urobilinogen Normal Ur Leukocyte Esterase Negative Urine RBC 0 SEEN Urine WBC 0 SEEN Ur Squamous Epith Cells 0 SEEN Urine Bacteria 0 SEEN Urine Mucus 0 SEEN POC Glucose Radiography Chest X-Ray - ED: 1 View, Read by ED Physician, Chronic Changes and No Infiltrates Diagnostic Testing: Clinical Impression(s) from Imaging Studies Brain CT 02/16/22 18:04 IMPRESSION: Moderate atrophy and periventricular white matter ischemic changes with old right parietal lobe infarct. No acute bleed. If concern for acute infarct MRI recommended Electronically Signed: Mart Blackmon MD at 18:52 EDT , Chest X-Ray 02/16/22 18:35 IMPRESSION: No acute cardiopulmonary pathology Electronically Signed: Mart Blackmon MD at 19:00 EDT , Treatment and Re-Evaluation Narrative: CBC reveals a white count of 22.8 with 88% neutrophils. Hemoglobin is 11.2. Chemistry studies reveal a BUN of 31 and a creatinine 1.55. Glucose is 215. Urinalysis obtained in light of the leukocytosis. This reveals no evidence of acute infection. Portable chest x-ray per my interpretation reveals no focal infiltrate. Radiology interpretation is reviewed. Head CT shows chronic changes only. Blood cultures were ordered and patient will be called back if these are positive. long term staff will be advised to have repeat labs drawn to closely watch for leukocytosis. Patient does have a DNR comfort care order signed. At this time I see no evidence of an acute stroke. She will be discharged back to [facility]. Discharge Plan Triage Chief Complaint: General Illness ED Provider: Margarita Jamison Dx/Rx/DC Orders Clinical Impression: Leukocytosis Prescriptions: No Action clopidogrel 75 mg tablet 75 mg PO DAILY atorvastatin 20 mg Tablet 20 mg PO QHS bisacodyl 10 mg Suppository 10 mg CO DAILY PRN (Reason: Constipation) pantoprazole 40 mg Tablet,Delayed Release (Dr/Ec) 40 mg PO DAILY levothyroxine 88 mcg Capsule 88 mcg PO DAILY acetaminophen 500 mg Tablet 1,000 mg PO Q6H PRN PRN (Reason: Pain Score 1-3) Qty: 0 0RF polysaccharide iron complex [Ferrex 150] 150 mg iron Capsule 150 mg PO DAILY Qty: 0 0RF losartan 50 mg Tablet 50 mg PO BID Qty: 0 0RF ascorbic acid (vitamin C) [Vitamin C] 500 mg Tablet 500 mg PO DAILY guaifenesin 50 mg/5 mL Liquid 100 mg PO Q4H PRN (Reason: Cough) nystatin [Nyamyc] 100,000 unit/gram powder 1 applic topical TID Protocol: *Topical Application Instructions APPLICATION INSTRUCTIONS: Apply to Groin and under breast insulin lispro 100 unit/mL Insulin Pen See Protocol SUBCUT ACHS Protocol: 6. Sliding Scale Insulin Custom Condition: 180-200 Dose/Route: 2 Condition: 201-250 Dose/Route: 3 Condition: 251-300 Dose/Route: 4 Condition: 301-350 Dose/Route: 5 Condition: 351-400 Dose/Route: 6 Condition: 401-450 Dose/Route: 7 Protocol Text: Custom Sliding Scale sennosides-docusate sodium [Stool Softener-Stimulant Laxat] 8.6-50 mg tablet 1 tab PO BID tramadol 50 mg tablet 50 mg PO Q8H PRN PRN (Reason: Pain Score 1-10) hydralazine 50 mg tablet 25 mg PO QHS metoprolol tartrate 25 mg tablet 12.5 mg PO BID insulin glargine-yfgn 100 unit/mL (3 mL) insulin pen 26 unit subcut QHS furosemide [Lasix] 20 mg Tablet 20 mg PO DAILY vancomycin in dextrose 5 % 500 mg/100 mL piggyback 750 mg IV Q24H Rx Instructions: stop date 02/24/22 dx: ankle osteo weekly bmp, cbc, esr, vanc trough. Fax to [phone] insulin lispro [Humalog KwikPen Insulin] 100 unit/mL insulin pen 12 unit subcut TIDAC Primary Care Provider: Billie De Leon Referrals: Billie De Leon MD [Primary Care Provider] - 2 Days Activity Restrictions/Additional Instructions: Mrs. Blair white blood cell count is elevated tonight. I do not find a source of infection on her work-up. Her head CT shows no acute changes. Blood cultures have been sent. If these turn positive the facility will receive a call to have patient get for further treatment. Disposition Disposition: [facility] Discharge Location: [facility]
[2022-02-16 18:20] LABS: Bedside Glucose 200 mg/dL (74-106)
--- NOTE | 2022-02-16 18:35 | RAD_ITS ---
STUDY: X-RAY CHEST REASON FOR EXAM: Female, 87 years old. sob TECHNIQUE: AP portable COMPARISON: 01/15/2022 FINDINGS: The lungs are clear and expanded. There is no demonstrated pleural abnormality. Normal size heart. Normal mediastinum and toya. Normal visualized pulmonary arteries. Mildly calcified aortic arch and descending thoracic aorta. PICC line noted on the right with tip in distal superior vena cava Dorsal spine demonstrates degenerative changes. Normal visualized ribs, clavicles, and shoulders. There is no demonstrated abnormality of the visualized soft tissue structures of the upper abdomen. RAD/Chest 1 View (Portable) IMPRESSION: No acute cardiopulmonary pathology Electronically Signed: Mart Blackmon MD at 19:00 EDT ,
[2022-02-16 18:37] LABS: Absolute Lymphocyte Count 1.32 X10^3/uL (0.83-4.51); Basophil# 0.04 X10^3/uL; Basophil% 0.2 % (0-1); Eosinophil# 0.13 X10^3/uL; Eosinophils% 0.6 % (0-5); Hematocrit 35.9 % (37-47); Hemoglobin 11.2 g/dL (12.0-15.0); Lymphocyte # 1.32 X10^3/ul (0.83-4.51); Lymphocyte % 5.8 % (19-41); Mean Corp Hgb Conc 31.2 g/dL (32-36); Mean Corpuscular Volume 89.8 fL (81-99); Mean Platelet Vol. 11.2 fl (6.2-12.0); Monocyte# 1.05 X10^3/uL; Monocyte% 4.6 % (0-10); NRBC Flagged by Analyzer 0 % (0-5); Neutrophil # 20.02 X10^3/uL (2.7-7.7); Neutrophil % 87.9 % (47-70); POSITIVE DIFFERENTIAL YES; Platelet Count 306 K/mm3 (150-450); RBC Distribution Width CV 14.4 % (11.6-14.6); RBC Distribution Width SD 47.4 fl (35.1-43.9); White Blood Count 22.8 K/mm3 (4.4-11.0)
[2022-02-16 18:40] LABS: Differential Indicated SCAN CRITERIA MET
[2022-02-16 18:46] LABS: Anion Gap 9 (5-15); BUN 31 mg/dL (7-18); Chloride 99 mmol/L (98-107); Creatinine, Serum 1.55 mg/dL (0.55-1.02); EST Glomerular Filtration Rate 34 mL/min (>60); Est Glom Filt Rate - Afr Amer 41 mL/min (>60); Estimated Creatinine Clearance 26.77 ml/min; Glucose 215 mg/dL (74-106); Sodium Level 136 mmol/L (136-145)
[2022-02-16 19:20] LABS: Bacteria 0 SEEN /hpf (None Seen); Mucous, Urine 0 SEEN /hpf (<or=2+); Red Blood Cells-Urine 0 SEEN /hpf (0-5); Squamous Epithelial Cells - UA 0 SEEN /hpf (5-10); White Blood Cells 0 SEEN /hpf (0-5)
[2022-02-16 19:25] LABS: Color, Urine Yellow (Yellow); Glucose, Dipstick Normal (Normal); Ketone-Dipstick Negative (Negative); Leukocyte Esterase-Dipstick Negative /ul (Negative); Nitrite-Dipstick Negative (Negative); Occult Blood-Urine Negative /ul (Negative); Protein-Dipstick Negative (Negative); Urine Bilirubin Dipstick Negative (Negative); Urine Clarity Clear (Clear); Urine Urobilinogen Normal (Normal)
[2022-02-16 19:30] LABS: Differential Comment SCANNED
[2022-02-16 19:38] VITALS: PULSE 59; RESP 16; O2SAT 99
[2022-02-16 20:41] VITALS: BP 153/61; PULSE 56; RESP 17; O2SAT 96
[2022-02-16 20:59] VITALS: BP 182/73; PULSE 70; RESP 19; O2SAT 95
--- NOTE | 2022-02-16 21:05 | NURSING ---
report called rocio
[2022-02-16 22:00] VITALS: BP 111/56; PULSE 101; RESP 17; O2SAT 95
[2022-02-16 22:58] VITALS: BP 100/54; PULSE 67; RESP 18; O2SAT 95
== END 2022-02-16 23:07 | disposition skilled nursing facility (03) ==
PROVIDERS: Emergency Provider Emergency Medicine; PCP Internal Medicine; Visit Provider Emergency Medicine
DX: D72.829 Elevated white blood cell count, unspecified (principal); F03.90 Unspecified dementia, unspecified severity, without behavioral disturbance, psychotic disturbance, mood disturbance, and anxiety; J44.9 Chronic obstructive pulmonary disease, unspecified; E11.9 Type 2 diabetes mellitus without complications; Z79.4 Long term (current) use of insulin; Z86.73 Personal history of transient ischemic attack (TIA), and cerebral infarction without residual deficits; F32.A Depression, unspecified; K21.9 Gastro-esophageal reflux disease without esophagitis; E78.5 Hyperlipidemia, unspecified; E07.9 Disorder of thyroid, unspecified; Z87.440 Personal history of urinary (tract) infections; Z79.02 Long term (current) use of antithrombotics/antiplatelets; Z79.899 Other long term (current) drug therapy; Z87.891 Personal history of nicotine dependence; Z66 Do not resuscitate
CPT/HCPCS: 70450; 71045; 80048; 81001; 82962; 85025; 87040; 99213; 99285; G0463

== ENCOUNTER 2022-02-23 10:01 | Emergency (ER) | payer MEDICARE, MEDICAID, SELFPAY ==
[2022-02-23] VITALS (10 sets, daily range): BP systolic 63–139; BP diastolic 44–94; PULSE 60–88; RESP 14–22; TEMP 36.1–36.7; O2SAT 96–100; BMI 28.7
--- NOTE | 2022-02-23 11:35 | RAD_ITS ---
STUDY: X-RAY CHEST REASON FOR EXAM: Female, 87 years old. HYPOTENSION TECHNIQUE: AP and lateral views of the chest. COMPARISON: Comparison is made with prior study dated 02/16/2022. FINDINGS: A right-sided PICC line catheter is in situ. The tip is at the junction of the superior vena cava region. EKG electrodes are seen. The lungs are clear and expanded. There is no demonstrated pleural abnormality. Normal size heart. Normal mediastinum and toya. Normal visualized pulmonary arteries. There is atherosclerotic calcification of the aortic arch with tortuosity. There are diffuse degenerative changes of the visualized thoracic spine. Normal visualized ribs, clavicles, and shoulders. There is no demonstrated abnormality of the visualized soft tissue structures of the upper abdomen. RAD/Chest PA and Lateral IMPRESSION: No acute abnormality is seen. Electronically Signed: Ton Rod MD at 12:06 EDT ,
[2022-02-23 11:44] LABS: Lactic Acid 2.9 mmol/L (0.4-1.9)
--- NOTE | 2022-02-23 11:47 | EKG12_ITS ---
Test Reason : WOUND Blood Pressure : / mmHG Vent. Rate : 060 BPM Atrial Rate : 060 BPM P-R Int : 170 ms QRS Dur : 080 ms QT Int : 420 ms P-R-T Axes : 051 029 021 degrees QTc Int : 420 ms Normal sinus rhythm Normal ECG Confirmed by LO FLOYD, RAUL ([id number]), rewrite editor JESSIKA LINDSEY ([id number]) on 02/25/2022 7:59:32 AM Referred By: RIGOBERTO Confirmed By:RAUL BLANCHARD MD
--- NOTE | 2022-02-23 11:55 | CT_ITS ---
STUDY: CT BRAIN WITHOUT CONTRAST REASON FOR EXAM: Female, 87 years old. Confusion RADIATION DOSAGE (If Supplied By Facility): CTDIvol = ( 44.99 ) mGy, DLP = ( 745.49 ) mGycm TECHNIQUE: Transaxial CT imaging of the brain was performed without administration of intravenous contrast material. Individualized dose optimization techniques were used for this CT. COMPARISON: Comparison is made with prior study dated 02/16/2022. FINDINGS: Normal soft tissue structures. Normal calvarium. There is moderate cerebral atrophy with widening of the extra-axial spaces and ventricular dilatation. There are areas of decreased attenuation within the white matter tracts of the supratentorial brain, consistent with microvascular disease changes. Stable bilateral lacunar infarcts in the basal ganglia. Stable encephalomalacia in the right posterior parietal lobe. Normal brainstem. Normal cerebellum. There is no intracranial hemorrhage. There are no findings of an acute ischemic infarction. Normal visualized paranasal sinuses. CT/Brain/Head without Contrast IMPRESSION: Chronic involutional changes of the brain. Electronically Signed: Ton Rod MD at 12:46 EDT ,
--- NOTE | 2022-02-23 11:55 | EX.ED.DYSGE1 ---
HPI History of Present Illness Chief Complaint: Wound Informant: EMS Narrative Narrative: Limited information at this time. Sent from [facility], no current paperwork. Apparently been dealing with a wound left ankle. This is being managed in outpatient reported possible fever and low blood pressure was sent here. Unclear if she is on any current antibiotics. She is confused with no clear dementia history seen. She does not know why she was sent here. She states been coughing for 4 days. Initial pressure noted to be 63/49 however rechecked without fluids is 113/52. [facility] Medical History (Updated 02/23/22 @ 14:[address] Hai Mendoza, DO) Carotid artery occlusion Cerebral infarct COPD (chronic obstructive pulmonary disease) Dementia Depression Diabetes GERD (gastroesophageal reflux disease) Hearing loss Hyperlipemia Kidney disease Normocytic anemia Obesity Osteomyelitis Osteomyelitis Thyroid disease UTI (urinary tract infection) Weakness Wound of left ankle Home Medications clopidogrel 75 mg tablet 75 mg PO DAILY 08/22/21 [History Last Taken 02/23/22] atorvastatin 20 mg tablet 20 mg PO QHS Cholesterol 10/24/21 [History Last Taken 02/22/22] pantoprazole 40 mg tablet,delayed release 40 mg PO QHS GERD 10/24/21 [History Last Taken 02/22/22] acetaminophen 500 mg tablet 1,000 mg PO Q6H PRN PRN Pain Score 1-3 #0 tabs 11/12/21 [Rx Last Taken 02/20/22] ascorbic acid (vitamin C) 500 mg tablet (Vitamin C) 500 mg PO DAILY 12/08/21 [History Last Taken 02/23/22] nystatin 100,000 unit/gram topical powder (Nyamyc) 1 applic topical TID 12/08/21 [History Last Taken 02/23/22] insulin glargine-yfgn 100 unit/mL (3 mL) subcutaneous pen 26 unit subcut QHS 01/13/22 [History Last Taken 02/22/22] insulin lispro 100 unit/mL subcutaneous pen See Protocol subcut ACHS 01/13/22 [History Last Taken 02/23/22] sennosides 8.6 mg-docusate sodium 50 mg tablet (Stool Softener-Stimulant Laxative) 1 tab PO BID CONSTIPATION 01/13/22 [History Last Taken 02/23/22] tramadol 50 mg tablet 50 mg PO Q8H PRN PRN Pain Score 1-10 01/13/22 [History Last Taken 02/22/22] furosemide 20 mg tablet (Lasix) 20 mg PO DAILY 02/16/22 [History Last Taken 02/23/22] insulin lispro 100 unit/mL subcutaneous pen (Humalog KwikPen (U-100) Insulin) 12 unit subcut TIDAC DM 02/16/22 [History Last Taken 02/23/22] vancomycin 500 mg/100 mL in dextrose 5 % intravenous piggyback 750 mg IV Q24H 02/16/22 [History Last Taken 02/23/22] collagenase clostridium histo. 250 unit/gram topical ointment (Santyl) 1 applic topical QHS LEFT HEEL WOUND 02/23/22 [History Last Taken 02/22/22] dulaglutide 1.5 mg/0.5 mL subcutaneous pen injector (Trulicity) 1.5 mg subcut WE DM 02/23/22 [History Last Taken Unknown] hydralazine 25 mg tablet 25 mg PO BID BP 02/23/22 [History Last Taken 02/20/22] levothyroxine 88 mcg tablet 88 mcg PO DAILY THYROID 02/23/22 [History Last Taken 02/23/22] losartan 50 mg tablet 50 mg PO BID BP 02/23/22 [History Last Taken 02/23/22] multivitamin 1 tab PO DAILY HEALTH MAINTENANCE 02/23/22 [History Last Taken 02/23/22] nutrition tx glu intol,lac-free,soy-fiber 0.06 gram-1.1 kcal/mL liquid (Boost Glucose Control) 237 ml PO BID SUPPLEMENT 02/23/22 [History Last Taken 02/23/22] polysaccharide iron complex 150 mg iron capsule (Ferrex) 150 mg PO DAILY ANEMIA 02/23/22 [History Last Taken 02/23/22] Allergy/AdvReac Type Severity Reaction Status Date / Time banana Allergy Hives Verified 02/23/22 10:03 peanut Allergy Hives Verified 02/23/22 10:03 Penicillins Allergy Other Verified 02/23/22 10:03 Sulfa (Sulfonamide Allergy Swelling Verified 02/23/22 10:03 Antibiotics) Surgical History Status post open reduction with internal fixation (ORIF) of fracture of ankle Social History household members: none housing: assisted living facility Smoking Status: Former smoker alcohol intake: never substance use type: does not use ROS ROS ED Review of Systems ROS Unobtainable: due to mental status Respiratory/Chest Respiratory/Chest: Reports cough EXAM Physical Exam Const Vital Signs: 02/23/22 10:13 02/23/22 10:16 02/23/22 11:52 Temperature 96.9 F L 96.9 F L Temperature Source Temporal Temporal Pulse Rate 75 75 60 Respiratory Rate 16 16 16 Blood Pressure 63/49 L 63/49 L 113/52 L Blood Pressure Mean 53 53 72 Pulse Ox 100 100 98 Oxygen Delivery Method Room Air Room Air 02/23/22 12:06 02/23/22 12:06 02/23/22 12:07 Temperature 98.1 F Temperature Source Oral Pulse Rate 61 Respiratory Rate 14 14 Blood Pressure 104/44 L Blood Pressure Mean 64 Pulse Ox 98 98 97 Oxygen Delivery Method Room Air Room Air Room Air 02/23/22 12:07 02/23/22 12:15 02/23/22 13:01 Temperature 97.8 F Temperature Source Oral Pulse Rate 88 61 Respiratory Rate 19 H 22 H Blood Pressure 108/45 L 134/59 H Blood Pressure Mean 66 84 Pulse Ox 98 96 97 Oxygen Delivery Method Room Air Room Air Room Air 02/23/22 13:54 02/23/22 15:30 Temperature Temperature Source Pulse Rate 81 72 Respiratory Rate 18 20 H Blood Pressure 139/66 H 132/74 H Blood Pressure Mean 90 93 Pulse Ox 97 98 Oxygen Delivery Method Room Air Room Air Positive well nourished and well developed General Appearance ED: well developed and NAD HEENT Reports moist mucous membranes normocephalic and atraumatic Eyes PERRL, EOMs intact bilaterally and conjunctivae normal General Eye ED: Yes normal appearance of both eyes Neck no lymphadenopathy and supple General: Negative for tenderness Chest Wall Chest: Negative for tenderness Resp normal respiratory effort and normal air movement Effort and Inspection: symmetric chest movement; Negative for respiratory distress Cardio regular rate, regular rhythm and no murmurs Peripheral Pulses: pulses 2+ throughout GI normal to inspection, nondistended, normoactive bowel sounds and non-tender Palpation: Negative for guarding or rebound tenderness present Back/Spine no CVA tenderness and no thoracic nor lumbar tenderness Extremity Extremity Narrative: Left lower extremity: Dressing removed from ankle a 1 cm wound lateral malleolus that is open, there is malodorous drainage, noted hardware from a previous ORIF. General Extremety ED: Negative for edema or tenderness General Extremity: Negative for edema Neuro no sensory deficits noted Neuro Narrative: Alert to person and reporting his hospital. Cannot tell me the year. Sensorium / Orientation: awake and alert Skin Skin Narrative: See above MDM MDM MDM Narrative Medical decision making narrative: No clear history on patient from facility and patient unable to tell me anything. With odor to the left ankle wound with drainage. Sepsis work-up was initiated. There is protocol for the lactic acid returned at 2.9. She is given a liter of fluids. Labs White count 9.8 hemoglobin 11.3. Creatinine 1.94. Normal electrolytes. With her cough 2 view chest x-ray reviewed by myself and read by radiology shows no acute process. 3 view left ankle reviewed by myself hardware is intact with no acute findings. CT brain obtained with her possible confusion which returned negative. Nursing evaluation records noting there is dementia in her history from the nursing side. Is likely her baseline. She was given Tylenol. I obtain wound cultures from the site. During work-up I evaluated records noting she had a fracture back in October of this year. Apparently being treated for osteomyelitis of the left ankle seen ID Dr. Morrison as an outpatient. Parent wound cultures and of December was MRSA and strep. Plans for 6 weeks of IV vancomycin through her PICC line. Patient's blood pressure cuff was covering the PICC line right arm which clean dry and intact. Her last dose would be for tomorrow and there is plan for transition to an oral antibiotic for treatment. Her white count at that time was 17 she was actually seen on February 16 white count of 22 for concerns for outpatient strokes which appear to be negative and sent back to facility. She had a leukocytosis unknown origin, however no additional antibiotics, her white count is down to 9.8 today. Clinically stable plan for repeat lactic acid. With patient's history and findings from infectious disease note, I was able to speak with Dr. Cherry, who knows the patient, discussed the initial blood pressure that resolved without treatment, discussed patient's history presentation with sepsis work-up with new swabs and blood cultures. Of note her blood cultures were negative in December. Feels a clinically stable lactic acid improved she can be discharged back to the facility, he he will take care of the oral antibiotic transition at her facility. He discussed long-term care would be constant antibiotics versus hardware removal in the future. From records also note she is a DNR comfort care. Therefore at this time plan will be to [facility] to [facility] to finish her antibiotics and oral antibiotics per infectious disease. 1607: Repeat lactic acid down to 2.1. Is trending down. Blood pressure remained stable. She will be discharged back to her nursing facility for continued outpatient management. Lab Data Attestation: I reviewed the patient's lab results. Labs: Laboratory Results - last 24 hr 02/23/22 02/23/22 02/23/22 10:30 10:30 10:30 WBC 9.8 RBC 4.01 L Hgb 11.3 L Hct 36.4 L MCV 90.8 MCH 28.2 MCHC 31.0 L RDW Std Deviation 48.9 H RDW Coeff of Suzy 14.6 Plt Count 366 MPV 11.1 Immature Gran % (Auto) 0.500 Neut % (Auto) 65.5 Lymph % (Auto) 23.4 [place] % (Auto) 7.5 Eos % (Auto) 2.9 Baso % (Auto) 0.2 Absolute Neuts (auto) 6.4 Absolute Lymphs (auto) 2.30 Nucleated RBC % 0 PT 13.8 INR 1.1 APTT 27.3 Sodium Potassium Chloride Carbon Dioxide Anion Gap BUN Creatinine Estim Creat Clear Calc Est GFR (MDRD) Af Amer Est GFR (MDRD) Non-Af BUN/Creatinine Ratio Glucose Lactic Acid 2.9 H* Calcium Total Bilirubin AST ALT Alkaline Phosphatase Total Protein Albumin Globulin Albumin/Globulin Ratio Urine Color Urine Clarity Urine pH Ur Specific [place] Urine Protein Urine Glucose (UA) Urine Ketones Urine Occult Blood Urine Nitrite Urine Bilirubin Urine Urobilinogen Ur Leukocyte Esterase Urine RBC Urine WBC Ur Squamous Epith Cells Urine Bacteria Urine Mucus 02/23/22 02/23/22 02/23/22 10:30 13:05 15:30 WBC RBC Hgb Hct MCV MCH MCHC RDW Std Deviation RDW Coeff of Suzy Plt Count MPV Immature Gran % (Auto) Neut % (Auto) Lymph % (Auto) [place] % (Auto) Eos % (Auto) Baso % (Auto) Absolute Neuts (auto) Absolute Lymphs (auto) Nucleated RBC % PT INR APTT Sodium 139 Potassium 4.0 Chloride 105 Carbon Dioxide 26.0 Anion Gap 8 BUN 31 H Creatinine 1.94 H Estim Creat Clear Calc 16.77 Est GFR (MDRD) Af Amer 32 L Est GFR (MDRD) Non-Af 26 L BUN/Creatinine Ratio 16.0 Glucose 379 H Lactic Acid 2.1 H* Calcium 9.5 Total Bilirubin 0.30 AST 15 ALT 18 Alkaline Phosphatase 86 Total Protein 7.4 Albumin 3.0 L Globulin 4.4 H Albumin/Globulin Ratio 0.7 L Urine Color Yellow Urine Clarity Sl. Cloudy Urine pH 6.0 Ur Specific [place] 1.010 Urine Protein 15 H Urine Glucose (UA) 100 H Urine Ketones Negative Urine Occult Blood Negative Urine Nitrite Negative Urine Bilirubin Negative Urine Urobilinogen Normal Ur Leukocyte Esterase Negative Urine RBC 0 SEEN Urine WBC 0 SEEN Ur Squamous Epith Cells 0 SEEN Urine Bacteria 0 SEEN Urine Mucus 0 SEEN Radiography Diagnostic Testing: Clinical Impression(s) from Imaging Studies Chest X-Ray 02/23/22 11:35 IMPRESSION: No acute abnormality is seen. Electronically Signed: Ton Rod MD at 12:06 EDT , Brain CT 02/23/22 11:55 IMPRESSION: Chronic involutional changes of the brain. Electronically Signed: Ton Rod MD at 12:46 EDT , Ankle X-Ray 02/23/22 12:45 IMPRESSION: Status post ORIF of the medial malleolus of the distal tibia and distal fibula. The fractures are healed. No significant soft tissue swelling is seen. Electronically Signed: Ton Rod MD at 13:15 EDT , EKG Initial EKG: Attestation: I personally reviewed and interpreted this EKG as follows: Comments: Sinus rate of 60, no ST changes, T wave version leads III and aVF. Discharge Plan Triage Chief Complaint: Wound Other Complaint: General Illness ED Provider: Hai Mendoza Dx/Rx/DC Orders Clinical Impression: Acute on chronic renal insufficiency, Osteomyelitis of left ankle, Dementia, Transient hypotension Instructions: CKD Dc, Osteomyelitis Dc Prescriptions: No Action clopidogrel 75 mg tablet 75 mg PO DAILY atorvastatin 20 mg Tablet 20 mg PO QHS pantoprazole 40 mg Tablet,Delayed Release (Dr/Ec) 40 mg PO QHS acetaminophen 500 mg Tablet 1,000 mg PO Q6H PRN PRN (Reason: Pain Score 1-3) Qty: 0 0RF ascorbic acid (vitamin C) [Vitamin C] 500 mg Tablet 500 mg PO DAILY nystatin [Nyamyc] 100,000 unit/gram powder 1 applic topical TID Protocol: *Topical Application Instructions APPLICATION INSTRUCTIONS: Apply to Groin and under breast insulin lispro 100 unit/mL Insulin Pen See Protocol SUBCUT ACHS Protocol: 6. Sliding Scale Insulin Custom Condition: 180-200 Dose/Route: 2 Condition: 201-250 Dose/Route: 3 Condition: 251-300 Dose/Route: 4 Condition: 301-350 Dose/Route: 5 Condition: 351-400 Dose/Route: 6 Condition: 401-450 Dose/Route: 7 Protocol Text: Custom Sliding Scale sennosides-docusate sodium [Stool Softener-Stimulant Laxat] 8.6-50 mg tablet 1 tab PO BID tramadol 50 mg tablet 50 mg PO Q8H PRN PRN (Reason: Pain Score 1-10) insulin glargine-yfgn 100 unit/mL (3 mL) insulin pen 26 unit subcut QHS furosemide [Lasix] 20 mg Tablet 20 mg PO DAILY vancomycin in dextrose 5 % 500 mg/100 mL piggyback 750 mg IV Q24H Rx Instructions: stop date 02/24/22 dx: ankle osteo weekly bmp, cbc, esr, vanc trough. Fax to [phone] insulin lispro [Humalog KwikPen Insulin] 100 unit/mL insulin pen 12 unit subcut TIDAC multivitamin Tablet 1 tab PO DAILY hydralazine 25 mg tablet 25 mg PO BID levothyroxine 88 mcg tablet 88 mcg PO DAILY Santyl 250 unit/gram Ointment 1 applic TOPICAL QHS Trulicity 1.5 mg/0.5 mL pen injector 1.5 mg SUBCUT WE Boost Glucose Control 0.06-1.1 gram-kcal/mL Liquid 237 ml PO BID losartan 50 mg tablet 50 mg PO BID polysaccharide iron complex [Ferrex 150] 150 mg iron capsule 150 mg PO DAILY Primary Care Provider: Billie De Leon Referrals: Billie De Leon MD [Primary Care Provider] - Frederic Cherry MD [Med Staff - Active Staff] - 3-5 Days Activity Restrictions/Additional Instructions: Current treatment for osteomyelitis of left ankle. You have 1 more day of IV vancomycin. Per Dr. Cherry, he will transition you to oral antibiotics after finishing IV dosing. Creatinine 1.9 up from 1.7 previously. Fluids were given in the ED. Blood pressure stable. You will be managed as an outpatient. Disposition Disposition: Home, Self Care
[2022-02-23 12:06] LABS: Absolute Neutrophil Count 6.4 X10^3/uL (2.0-7.7); Basophil# 0.02 X10^3/uL; Basophil% 0.2 % (0-1); Eosinophil# 0.28 X10^3/uL; Eosinophils% 2.9 % (0-5); Hematocrit 36.4 % (37-47); Hemoglobin 11.3 g/dL (12.0-15.0); Lymphocyte % 23.4 % (19-41); Mean Corpuscular Hgb 28.2 pg (27.0-32.0); Mean Corpuscular Volume 90.8 fL (81-99); Mean Platelet Vol. 11.1 fl (6.2-12.0); Monocyte# 0.74 X10^3/uL; Monocyte% 7.5 % (0-10); NRBC Flagged by Analyzer 0 % (0-5); Neutrophil # 6.42 X10^3/uL (2.7-7.7); Neutrophil % 65.5 % (47-70); Platelet Count 366 K/mm3 (150-450); RBC Distribution Width CV 14.6 % (11.6-14.6); RBC Distribution Width SD 48.9 fl (35.1-43.9); Red Blood Count 4.01 M/mm3 (4.2-5.4); White Blood Count 9.8 K/mm3 (4.4-11.0)
[2022-02-23] MEDS: 0.9% Normal Saline 1,000 ML 50 ML IV (12:08)
[2022-02-23] MEDS: 0.9% Normal Saline 1,000 ML 999 ML IV (12:09)
[2022-02-23] MEDS: Acetaminophen 500 MG Tablet 1000 MG PO (12:11)
[2022-02-23 12:21] LABS: International Normalized Ratio 1.1; Prothrombin Time (Protime)PT. 13.8 SECONDS (11.7-14.9)
[2022-02-23 12:22] LABS: Partial Thromboplast Time 27.3 Seconds (24.1-36.2)
--- NOTE | 2022-02-23 12:45 | RAD_ITS ---
STUDY: X-RAY - LEFT ANKLE REASON FOR EXAM: Female, 87 years old. Possible infection. TECHNIQUE: 3 view(s) of the ankle. COMPARISON: Comparison is made with prior study dated 11/09/2021. FINDINGS: The patient is status post ORIF of the distal fibula utilizing screw and sideplate fixation device. There is also evidence of 2 metallic screws in the medial malleolus. There is good alignment. Normal medial and lateral malleoli. Normal tibiotalar articulation and ankle mortise. Calcaneal spurs. The visualized subtalar, talonavicular, calcaneocuboid and tarsal articulations are normal. Vascular calcification. No significant soft tissue swelling is seen. RAD/Ankle min 3 Views IMPRESSION: Status post ORIF of the medial malleolus of the distal tibia and distal fibula. The fractures are healed. No significant soft tissue swelling is seen. Electronically Signed: Ton Rod MD at 13:15 EDT ,
[2022-02-23 13:08] LABS: ALB/GLOB Ratio 0.7 RATIO (0.9-2.4); AST(SGOT) 15 U/L (15-37); Alanine Aminotransfer ALT/SGPT 18 U/L (13-56); Alkaline Phosphatase 86 U/L (45-117); Anion Gap 8 (5-15); BUN 31 mg/dL (7-18); Calcium,Total 9.5 mg/dL (8.5-10.1); Chloride 105 mmol/L (98-107); Creatinine, Serum 1.94 mg/dL (0.55-1.02); EST Glomerular Filtration Rate 26 mL/min (>60); Est Glom Filt Rate - Afr Amer 32 mL/min (>60); Estimated Creatinine Clearance 16.77 ml/min; Globulin 4.4 g/dL (2.2-4.2); Glucose 379 mg/dL (74-106); Protein, Total 7.4 g/dL (6.4-8.2); Sodium Level 139 mmol/L (136-145)
[2022-02-23 13:12] LABS: Bacteria 0 SEEN /hpf (None Seen); Mucous, Urine 0 SEEN /hpf (<or=2+); Red Blood Cells-Urine 0 SEEN /hpf (0-5); Squamous Epithelial Cells - UA 0 SEEN /hpf (5-10); White Blood Cells 0 SEEN /hpf (0-5)
[2022-02-23 13:19] LABS: Color, Urine Yellow (Yellow); Glucose, Dipstick 100 mg/dl (Normal); Ketone-Dipstick Negative (Negative); Leukocyte Esterase-Dipstick Negative /ul (Negative); Nitrite-Dipstick Negative (Negative); Occult Blood-Urine Negative /ul (Negative); Protein-Dipstick 15 mg/dl (Negative); Urine Bilirubin Dipstick Negative (Negative); Urine Clarity Sl. Cloudy (Clear); Urine Urobilinogen Normal (Normal)
[2022-02-23 14:36] LABS: Reflex Lactate? Y
[2022-02-23 16:06] LABS: Lactic Acid 2.1 mmol/L (0.4-1.9)
--- NOTE | 2022-02-23 16:23 | NURSING ---
SPOKE WITH LISSA FROM [facility] ETA OF 20 MINUTES AT THIS TIME TO GET PT BACK TO [facility]
[2022-02-23 19:31] LABS: Reflex Lactate? Y
== END 2022-02-23 17:26 | disposition home or self-care (01) ==
PROVIDERS: Emergency Provider Emergency Medicine; PCP Internal Medicine; Visit Provider Emergency Medicine
DX: E11.69 Type 2 diabetes mellitus with other specified complication (principal); L97.324 Non-pressure chronic ulcer of left ankle with necrosis of bone; M86.8X7 Other osteomyelitis, ankle and foot; M86.9 Osteomyelitis, unspecified; F03.90 Unspecified dementia, unspecified severity, without behavioral disturbance, psychotic disturbance, mood disturbance, and anxiety; J44.9 Chronic obstructive pulmonary disease, unspecified; E11.22 Type 2 diabetes mellitus with diabetic chronic kidney disease; I73.9 Peripheral vascular disease, unspecified; Z79.4 Long term (current) use of insulin; N28.9 Disorder of kidney and ureter, unspecified; B95.62 Methicillin resistant Staphylococcus aureus infection as the cause of diseases classified elsewhere; E78.5 Hyperlipidemia, unspecified; Z87.891 Personal history of nicotine dependence; R03.1 Nonspecific low blood-pressure reading; S91.002A Unspecified open wound, left ankle, initial encounter; X58.XXXA Exposure to other specified factors, initial encounter; Z79.899 Other long term (current) drug therapy; Z79.02 Long term (current) use of antithrombotics/antiplatelets; Z79.85 Long-term (current) use of injectable non-insulin antidiabetic drugs; E07.9 Disorder of thyroid, unspecified; Z79.890 Hormone replacement therapy; N18.9 Chronic kidney disease, unspecified; B95.5 Unspecified streptococcus as the cause of diseases classified elsewhere; Z66 Do not resuscitate
CPT/HCPCS: 36415; 70450; 71046; 73610; 80053; 81001; 82962; 83605; 85025; 85610; 85730; 87040; 87070; 87075; 87077; 87086; 87088; 87186; 87205; 93005; 94760; 96360; 96361; 99284; A4216

== ENCOUNTER → 2022-02-26 | Outpatient (REF) | payer MEDICARE, MEDICAID, SELFPAY ==
[2022-02-26 10:54] LABS: Absolute Lymphocyte Count 1.95 X10^3/uL (0.83-4.51); Absolute Neutrophil Count 6.2 X10^3/uL (2.0-7.7); Basophil# 0.02 X10^3/uL; Basophil% 0.2 % (0-1); Eosinophil# 0.24 X10^3/uL; Eosinophils% 2.6 % (0-5); Hematocrit 38.6 % (37-47); Hemoglobin 11.5 g/dL (12.0-15.0); Lymphocyte # 1.95 X10^3/ul (0.83-4.51); Lymphocyte % 21.5 % (19-41); Mean Corp Hgb Conc 29.8 g/dL (32-36); Mean Corpuscular Volume 94.1 fL (81-99); Monocyte# 0.61 X10^3/uL; Monocyte% 6.7 % (0-10); NRBC Flagged by Analyzer 0 % (0-5); Neutrophil # 6.22 X10^3/uL (2.7-7.7); Neutrophil % 68.4 % (47-70); Platelet Count 337 K/mm3 (150-450); RBC Distribution Width CV 14.5 % (11.6-14.6); RBC Distribution Width SD 50.4 fl (35.1-43.9); White Blood Count 9.1 K/mm3 (4.4-11.0)
[2022-02-26 11:18] LABS: Anion Gap 9 (5-15); BUN 20 mg/dL (7-18); BUN/Creat Ratio 12.3 RATIO (10-20); Calcium,Total 9.9 mg/dL (8.5-10.1); Chloride 106 mmol/L (98-107); Creatinine, Serum 1.62 mg/dL (0.55-1.02); EST Glomerular Filtration Rate 32 mL/min (>60); Est Glom Filt Rate - Afr Amer 39 mL/min (>60); Glucose 192 mg/dL (74-106); Sodium Level 140 mmol/L (136-145)
== END ==
LOC: OLS.SW500 09:00
PROVIDERS: PCP Internal Medicine; Visit Provider Internal Medicine
DX: M86.172 Other acute osteomyelitis, left ankle and foot (principal)
CPT/HCPCS: 36415; 80048; 85025

== ENCOUNTER 2022-03-16 09:45 | Outpatient (RCR) | payer MEDICARE, MEDICAID, SELFPAY ==
[2022-02-20 00:23] VITALS: BP 122/53; PULSE 64; RESP 16; TEMP 36.2
--- NOTE | 2022-02-23 09:50 | WOUNDNOTE ---
pt came into the wound center extremely lethargic. The pt stated she is too weak to get out of her wheelchair. The pt BP was 76/34 with HR 90. We checked a manual BP as well it and it was 70/42. The pt also stated she was SOB. The pt has three wounds located on her left ankle and heel. The pt also has a picc line in her right upper arm. The pt was sent to the ER.
--- NOTE | 2022-02-23 09:52 | PCM.WC.PN ---
History of Present Illness Date of Service: 02/23/22 Progress of Wound: 87-year-old female presents from group home facility today feeling not well. Patient notes lethargy nausea inability to eat. 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 Patient was recently revascularized per Dr. Russo. She has been on IV antibiotics Ancef for 5 weeks with a stop date of 02/24/2022. She has significant pain to her plantar heel as well as her left lateral ankle. Patient was recently evaluated in the emergency room on 02/16/2022. She had a white count of 22 at that time. Objective Data Objective Data Vital Signs: Vital Signs Temp Pulse Resp BP 97.1 F L 64 16 122/53 H 02/20/22 00:23 02/20/22 00:23 02/20/22 00:23 02/20/22 00:23 Physical Exam Narrative Neurovascular status unchanged from previous visit. Dermatologic: Full-thickness ulceration noted to the distal lateral left ankle incisional site with exposed hardware. Worsened erythema no evidence of purulent drainage resolving edema no other signs of infection at this time. Full-thickness wound noted to plantar heel with fibronecrotic base. No debridement performed no deep probing undermining or signs of infection to the site. Musculoskeletal rest rectus alignment of the left ankle. Full ankle joint range of motion however painful and guarded. No pain with calf squeeze or palpation of popliteal fossa. 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 Blood sugar was taken was noted to be 369. Recent leukocytosis in the emergency room was 22 on 02/16/2022. No other source of infection at that time. Including in the work-up there was a brain CT, chest x-ray, urinalysis all negative for any concerning resolved. Blood cultures were taken and had negative growth after 5 days. Patient has been taking IV antibiotics for PICC line with infectious disease secondary to possible bone infection to the left lateral ankle. Her stop date is noted to be 02/24/2022. Due to concern for sepsis I recommend presentation to the emergency room due to possible worsening of infection to her left ankle. Patient will likely require hospital admission with IV antibiotics. Since the patient had recently underwent revascularization per Dr. Russo we will likely proceed with hardware removal to the left lateral ankle as well as debridement of any nonviable tissue and bone along with tissue cultures to clear any deep infection to prevent any recurrent systemic response. Will follow patient closely during hospital stay. (2) Peripheral vascular disease, unspecified: CODE(S): I73.9 - Peripheral vascular disease, unspecified (3) Osteomyelitis of left ankle: CODE(S): M86.9 - Osteomyelitis, unspecified
[2022-02-23 09:55] LABS: Bedside Glucose 369 mg/dL (74-106)
--- NOTE | 2022-02-23 13:06 | WC ---
Patient arrived via wheelchair to room 6 at the [facility]. She states she doesn't feel well at all. Her BP on arrival was hypotensive. Rechecked BP several time with manual and machine to both side of her arms with readings 70's/30's. Blood sugar was 369. Due to extremely lower BP reading, patient was advised to go to the ER. Spoke to Karlie at [facility] who stated her BP reading this am was 90/50's. Patient didn't eat breakfast so no insulin was given.
[2022-03-09 09:37] VITALS: BP 100/46; PULSE 73; RESP 16; TEMP 35.3
--- NOTE | 2022-03-09 10:00 | PN.PCM_ITS ---
History of Present Illness Date of Service: 03/09/22 Progress of Wound: 87-year-old female presents from [facility] facility today feeling not well. Patient notes lethargy nausea inability to eat. 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 Patient was recently revascularized per Dr. Russo. She has been on IV antibiotics Ancef for 5 weeks with a stop date of 02/24/2022. She has significant pain to her plantar heel as well as her left lateral ankle. Patient was recently evaluated in the emergency room on 02/16/2022. She had a white count of 22 at that time. Objective Data Objective Data Vital Signs: Vital Signs Temp Pulse Resp BP O2 Del Method 95.5 F L 73 16 100/46 L Room Air 03/09/22 09:37 03/09/22 09:37 03/09/22 09:37 03/09/22 09:37 03/09/22 09:37 Oxygen Delivery Method Room Air Physical Exam Narrative Neurovascular status unchanged from previous visit. Dermatologic: Full-thickness ulceration noted to the distal lateral left ankle incisional site with exposed hardware. Worsened erythema no evidence of purulent drainage resolving edema no other signs of infection at this time. Full-thickness wound noted to plantar heel with fibronecrotic base. No debridement performed no deep probing undermining or signs of infection to the site. Musculoskeletal rest rectus alignment of the left ankle. Full ankle joint range of motion however painful and guarded. No pain with calf squeeze or palpation of popliteal fossa. 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 ) Arrival Mode Wheelchair Transfer Assistance Manual Accompanied by caregiver Patient Identification Verified (Name & Yes ) Patient Requires Transmission-Based No Precautions Safety Precautions Fall Prevention Vital Signs Temperature (97.8 F-99.1 F) 95.5 F L Temperature Source Temporal Pulse Rate (60-100) 73 Pulse Location Monitor Respiratory Rate (12-18) 16 Respiratory rate source Observation Oxygen Delivery Method Room Air Blood Pressure (90/60-120/80) 100/46 L Blood Pressure Mean (mm Hg) 64 Source Monitor Position Sitting Blood Pressure Location Right Forearm History Since Last Visit- (Skip if this is Patient's initial visit) Have you changed medications since your No last visit? Any new allergies or adverse reactions No Had a fall/change in ADL's that may No increase risk of falls Signs or symptoms of abuse and/or No neglect since last visit Have you been in the hospital since your No last visit? Has dressing in place as prescribed Yes Has compression in place as prescribed N/A Has offloadiing in place as prescribed Yes Experienced any changes in pain level or No management Left Footwear Removable Cast Walker/Walking Boot Right Footwear Slipper Pain Scale: 0-10 Numeric Is Patient Pain Free? Yes WC - Nurse 1 - General Ulcer Measurement Start: 02/23/22 09:49 Freq: Status: Active Protocol: Activity Type Activity Date Activity User E-sign Co-sign Detail Recorded Client Recorded Date Recorded By Document 03/09/22 09:37 MW [id number] 03/09/22 09:43 MW 03/09/22 09:37 Wound Center Nurse 1 #2- L HEEL -Current Size (cm) - Length 1.0 -Current Size (cm) - Width 1.2 -Current Size (cm) - Depth 0.1 -Total Square Cm 1.20 -Date of Last Picture (Recall this 03/09/22 field) -Photo Taken Yes -Epithelialization None Present -Tunneling No -Undermining/Tunneling No -Circular Undermining No -Exudate Amt Medium -Exudate Type Serosanguineous -Wound Margin Flat & Intact -Granulation Amt Small (1-33%) -Granulation Quality Malin -Slough/Fibrin Yes -Necrosis Amt Medium (34-66%) -Necrotic Tissue Type Adherent Slough -Structure Exposed N/A -Texture ([place]-wound Skin Appearance) Assessed,Callus -Moisture ([place]-wound Skin Appearance) Assessed, Maceration -Color ([place]-wound Skin Appearance) No Abnormality, Assessed -Temperature ([place]-wound Skin No Abnormality Appearance) (Pt Warm) -Tenderness on Palpation ([place]-wound No Skin Appearance) -Ulcer Cleansing Rinsed/ Irrigated with Saline -Foul Odor after Cleansing No -Anesthetic Used 5% Lidocaine Gel #1 Left lateral ankle -Combined with other wound No -Current Size (cm) - Length 1.0 -Current Size (cm) - Width 0.5 -Current Size (cm) - Depth 0.2 -Total Square Cm 0.50 -Date of Last Picture (Recall this 03/09/22 field) -Photo Taken Yes -Epithelialization None Present -Tunneling No -Undermining/Tunneling No -Circular Undermining No -Exudate Amt Medium -Exudate Type Serosanguineous -Wound Margin Distinct, Outline Attached -Granulation Amt None Present (0 %) -Granulation Quality N/A -Slough/Fibrin Yes -Necrosis Amt Large (67-100%) -Necrotic Tissue Type Adherent Slough -Structure Exposed N/A -Texture ([place]-wound Skin Appearance) No Abnormality, Assessed -Moisture ([place]-wound Skin Appearance) Assessed, Maceration -Color ([place]-wound Skin Appearance) No Abnormality, Assessed -Temperature ([place]-wound Skin No Abnormality Appearance) (Pt Warm) -Tenderness on Palpation ([place]-wound Yes Skin Appearance) -Ulcer Cleansing Rinsed/ Irrigated with Saline -Foul Odor after Cleansing No -Anesthetic Used 5% Lidocaine Gel Lower Limb Edema Present No WC - Nurse 2 - General Ulcer CM Notes Start: 02/23/22 09:49 Freq: Status: Active Protocol: Activity Type Activity Date Activity User E-sign Co-sign Detail Recorded Client Recorded Date Recorded By Document 02/24/22 07:38 [id number] 02/24/22 07:38 02/24/22 07:38 Wound Center Nurse 2 #2- L HEEL -Correct Patient No -Correct Side, Site, Position No -Correct Procedure No -Procedure Performed No Pain Scale: 0-10 Numeric Is Patient Pain Free? Yes - Nurse 3 - General Ulcer D/C NN Start: 02/23/22 09:49 Freq: Status: Active Protocol: Activity Type Activity Date Activity User E-sign Co-sign Detail Recorded Client Recorded Date Recorded By Document 02/24/22 07:38 [id number] 02/24/22 07:41 02/24/22 07:38 Is Patient Pain Free? Yes WC - Visit Discharge Discharge Condition Unstable Transportation Private Auto Notes: Patient complained of not feeling well and is very hypotensive BP 70's over 30's. Blood sugar 369. Spoke to a Karlie at [facility] regarding sending patient to the ER due to low BP and patient complaining of not feeling well.
--- NOTE | 2022-03-09 10:57 | PN.PCM_ITS ---
History of Present Illness Date of Service: 03/09/22 Progress of Wound: 87-year-old female [facility] feeling much better today. Denies any constitutional symptoms. Has pain to her plantar left heel and lateral left ankle which is limited to manipulation of the sites. 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 Patient was recently revascularized per Dr. Russo. She has been on IV antibiotics Ancef for 5 weeks with a stop date of 02/24/2022. Objective Data Objective Data Vital Signs: Vital Signs Temp Pulse Resp BP O2 Del Method 95.5 F L 73 16 100/46 L Room Air 03/09/22 09:37 03/09/22 09:37 03/09/22 09:37 03/09/22 09:37 03/09/22 09:37 Oxygen Delivery Method Room Air Physical Exam Narrative Neurovascular status unchanged from previous visit. Dermatologic: Full-thickness ulceration noted to the distal lateral left ankle incisional site with exposed hardware. No purulent drainage slightly resolved erythema edema no other signs of infection. Plantar heel demonstrates mixed fiber granular base. Musculoskeletal rest rectus alignment of the left ankle. Full ankle joint range of motion however painful and guarded. No pain with calf squeeze or palpation of popliteal fossa. Debridement Note Debridement Note Post-Debridement Measurements and Additional Note: Post-Debridement Measurements/Treatment - Nurse 1 - General Ulcer Assessment Start: 02/23/22 09:49 Freq: Status: Active Protocol: .LOWEXT Activity Type Activity Date Activity User E-sign Co-sign Detail Recorded Client Recorded Date Recorded By Document 03/09/22 09:37 [id number] 03/09/22 09:43 03/09/22 09:37 - Today's Visit Information Type of service Follow-up Visit (Physician/[employer] ) Arrival Mode Wheelchair Transfer Assistance Manual Accompanied by caregiver Patient Identification Verified (Name & Yes ) Patient Requires Transmission-Based No Precautions Safety Precautions Fall Prevention Vital Signs Temperature (97.8 F-99.1 F) 95.5 F L Temperature Source Temporal Pulse Rate (60-100) 73 Pulse Location Monitor Respiratory Rate (12-18) 16 Respiratory rate source Observation Oxygen Delivery Method Room Air Blood Pressure (90/60-120/80) 100/46 L Blood Pressure Mean (mm Hg) 64 Source Monitor Position Sitting Blood Pressure Location Right Forearm History Since Last Visit- (Skip if this is Patient's initial visit) Have you changed medications since your No last visit? Any new allergies or adverse reactions No Had a fall/change in ADL's that may No increase risk of falls Signs or symptoms of abuse and/or No neglect since last visit Have you been in the hospital since your No last visit? Has dressing in place as prescribed Yes Has compression in place as prescribed N/A Has offloadiing in place as prescribed Yes Experienced any changes in pain level or No management Left Footwear Removable Cast Walker/Walking Boot Right Footwear Slipper Pain Scale: 0-10 Numeric Is Patient Pain Free? Yes WC - Nurse 1 - General Ulcer Measurement Start: 02/23/22 09:49 Freq: Status: Active Protocol: Activity Type Activity Date Activity User E-sign Co-sign Detail Recorded Client Recorded Date Recorded By Document 03/09/22 09:37 MW [id number] 03/09/22 09:43 MW 03/09/22 09:37 Wound Center Nurse 1 #2- L HEEL -Current Size (cm) - Length 1.0 -Current Size (cm) - Width 1.2 -Current Size (cm) - Depth 0.1 -Total Square Cm 1.20 -Date of Last Picture (Recall this 03/09/22 field) -Photo Taken Yes -Epithelialization None Present -Tunneling No -Undermining/Tunneling No -Circular Undermining No -Exudate Amt Medium -Exudate Type Serosanguineous -Wound Margin Flat & Intact -Granulation Amt Small (1-33%) -Granulation Quality [place] -Slough/Fibrin Yes -Necrosis Amt Medium (34-66%) -Necrotic Tissue Type Adherent Slough -Structure Exposed N/A -Texture ([place]-wound Skin Appearance) Assessed,Callus -Moisture ([place]-wound Skin Appearance) Assessed, Maceration -Color ([place]-wound Skin Appearance) No Abnormality, Assessed -Temperature ([place]-wound Skin No Abnormality Appearance) (Pt Warm) -Tenderness on Palpation ([place]-wound No Skin Appearance) -Ulcer Cleansing Rinsed/ Irrigated with Saline -Foul Odor after Cleansing No -Anesthetic Used 5% Lidocaine Gel #1 Left lateral ankle -Combined with other wound No -Current Size (cm) - Length 1.0 -Current Size (cm) - Width 0.5 -Current Size (cm) - Depth 0.2 -Total Square Cm 0.50 -Date of Last Picture (Recall this 03/09/22 field) -Photo Taken Yes -Epithelialization None Present -Tunneling No -Undermining/Tunneling No -Circular Undermining No -Exudate Amt Medium -Exudate Type Serosanguineous -Wound Margin Distinct, Outline Attached -Granulation Amt None Present (0 %) -Granulation Quality N/A -Slough/Fibrin Yes -Necrosis Amt Large (67-100%) -Necrotic Tissue Type Adherent Slough -Structure Exposed N/A -Texture ([place]-wound Skin Appearance) No Abnormality, Assessed -Moisture ([place]-wound Skin Appearance) Assessed, Maceration -Color ([place]-wound Skin Appearance) No Abnormality, Assessed -Temperature ([place]-wound Skin No Abnormality Appearance) (Pt Warm) -Tenderness on Palpation ([place]-wound Yes Skin Appearance) -Ulcer Cleansing Rinsed/ Irrigated with Saline -Foul Odor after Cleansing No -Anesthetic Used 5% Lidocaine Gel Lower Limb Edema Present No WC - Nurse 2 - General Ulcer CM Notes Start: 02/23/22 09:49 Freq: Status: Active Protocol: Activity Type Activity Date Activity User E-sign Co-sign Detail Recorded Client Recorded Date Recorded By Document 02/24/22 07:38 WILLIAM [id number] 02/24/22 07:38 Document 03/09/22 10:08 [id number] 03/09/22 10:11 02/24/22 03/09/22 07:38 10:08 Wound Center Nurse 2 #2- L HEEL -Time 10:08 -Correct Patient No No -Correct Side, Site, Position No No -Correct Procedure No No -Procedure Performed No No -Offloading Yes -Type of Offloading Surgical Shoe -Debridement - Subq, 1st 20sq cm No #1 Left lateral ankle -Time 10:10 -Correct Patient Yes -Correct Side, Site, Position Yes -Correct Procedure Yes -Procedure Performed Yes -Type of Procedure Debridement -Clinical Debridement Subcutaneous -Tissue Removed Subcutaneous -Post Debridement (cm) - Length 1.1 -Post Debridement (cm) - Width 0.6 -Post Debridement (cm) - Depth 0.3 -Total Square (Post) (cm) 0.66 -Area of Debridement (cm) - Length 1.1 -Area of Debridement (cm) - Width 0.6 -Total Square (Area) (cm) 0.66 -Tunneling No -Undermining/Tunneling No -Circular Undermining No -Wound/Ulcer Outcome Not Healed -Ulcer Cleansing Rinsed/ Irrigated with Saline -Foul Odor after Cleansing No -Bioengineered Tissue No -Bleeding Controlled with Pressure -Treatment Response Procedure Tolerated Well -Offloading No -Debridement - Subq, 1st 20sq cm Yes Pain Scale: 0-10 Numeric Is Patient Pain Free? Yes Yes - Nurse 3 - General Ulcer D/C NN Start: 02/23/22 09:49 Freq: Status: Active Protocol: Activity Type Activity Date Activity User E-sign Co-sign Detail Recorded Client Recorded Date Recorded By Document 02/24/22 07:38 [id number] 02/24/22 07:41 Document 03/09/22 10:17 MW [id number] 03/09/22 10:18 MW 02/24/22 03/09/22 07:38 10:17 Wound Care Nurse 3 #2- L HEEL -Ulcer Cleansing Rinsed/ Irrigated with Saline -Foul Odor after Cleansing No -Negative Pressure Wound Therapy N/A -Other Dressing c.hydrogel -Primary Dressing Covered/Secured with Dry Gauze & Roll Gauze, Secured with Tape -Other Covering abd pad #1 Left lateral ankle -Ulcer Cleansing Rinsed/ Irrigated with Saline -Foul Odor after Cleansing No -Negative Pressure Wound Therapy N/A -Other Dressing c.hydrogel -Primary Dressing Covered/Secured with Dry Gauze & Roll Gauze, Secured with Tape Treatment Response Procedure Tolerated Well Pain Scale: 0-10 Numeric Is Patient Pain Free? Yes Yes Teaching: Wound Center Dressing Your Wound -Person Taught Patient,Primary Caregiver -Teaching Method Discussion -Response to teaching Verbalize understanding WC - Visit Discharge Discharge Condition Unstable Stable Ambulatory Status Wheelchair Transportation [facility] Accompanied by caregiver Medication Reconcilliation completed & No provided to patient/care provider Clinical Summary of Care Provided Yes Notes: Patient complained of not feeling well and is very hypotensive BP 70's over 30's. Blood sugar 369. Spoke to a Karlie at [facility] regarding sending patient to the ER due to low BP and patient complaining of not feeling well. 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 Wound infection to left ankle improved since previous visit. Patient receiving p.o. doxycycline indefinitely. Patient underwent revascularized station surgery mid January [address] Macho braden. We will plan for hardware removal. Today the lateral ankle wound was debrided down to including level of subcutaneous tissue tissue excisionally of all nonviable tissue without incident. Patient tolerated procedure well hemostasis obtained with light compression. Topical anesthesia used. Pre and postdebridement measurements document nursing notes. Due to recurrent infection to the left lateral ankle we will plan for hardware removal. Patient was seen by infectious disease and placed on doxycycline indefinitely. At this time the wound likely will not heal unless source of infection is removed which is the lateral left ankle hardware. We will plan to do this on an outpatient basis with extended recovery. I recommend advanced wound care products such as epi fix for the plantar left heel wound. Patient will be continued to follow weekly in the wound care center. (2) Peripheral vascular disease, unspecified: CODE(S): I73.9 - Peripheral vascular disease, unspecified (3) Osteomyelitis of left ankle: CODE(S): M86.9 - Osteomyelitis, unspecified
[2022-03-16 09:43] VITALS: BP 86/42; PULSE 67; TEMP 35.8
--- NOTE | 2022-03-16 10:13 | PN.PCM_ITS ---
History of Present Illness Date of Service: 03/09/22 Progress of Wound: 87-year-old female [facility] today feeling much better today. Denies any constitutional symptoms. Has pain to her plantar left heel and lateral left ankle which is limited to manipulation of the sites. 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 Patient was recently revascularized per Dr. Russo. She has been on IV antibiotics Ancef for 5 weeks with a stop date of 02/24/2022. Objective Data Objective Data Vital Signs: Vital Signs Temp Pulse Resp BP O2 Del Method 96.5 F L 67 16 86/42 L Room Air 03/16/22 09:43 03/16/22 09:43 03/09/22 09:37 03/16/22 09:43 03/09/22 09:37 Oxygen Delivery Method Room Air Physical Exam Narrative Neurovascular status unchanged from previous visit. Dermatologic: Full-thickness ulceration noted to the distal lateral left ankle incisional site with exposed hardware. No purulent drainage slightly resolved erythema edema no other signs of infection. Plantar heel demonstrates mixed fiber granular base. These wounds appear to be improving this week. Musculoskeletal rest rectus alignment of the left ankle. Full ankle joint range of motion however painful and guarded. No pain with calf squeeze or palpation of popliteal fossa. Debridement Note Debridement Note Post-Debridement Measurements and Additional Note: Post-Debridement Measurements/Treatment - Nurse 1 - General Ulcer Assessment Start: 02/23/22 09:49 Freq: Status: Active Protocol: WC.LOWEXT Activity Type Activity Date Activity User E-sign Co-sign Detail Recorded Client Recorded Date Recorded By Document 03/09/22 09:37 [id number] 03/09/22 09:43 MW Document 03/16/22 09:43 AK [id number] 03/16/22 09:55 AK 03/09/22 03/16/22 09:37 09:43 - Today's Visit Information Type of service Follow-up Visit Follow-up Visit (Physician/CERTIFIED NURSE OPERATING ROOM (Physician/CERTIFIED NURSE OPERATING ROOM ) ) Arrival Mode Wheelchair Ambulatory Transfer Assistance Manual Accompanied by caregiver Patient Identification Verified (Name & Yes Yes ) Patient Requires Transmission-Based No No Precautions Safety Precautions Fall Prevention Vital Signs Temperature (97.8 F-99.1 F) 95.5 F L 96.5 F L Temperature Source Temporal Temporal Pulse Rate (60-100) 73 67 Pulse Location Monitor Monitor Respiratory Rate (12-18) 16 Respiratory rate source Observation Oxygen Delivery Method Room Air Blood Pressure (90/60-120/80) 100/46 L 86/42 L Blood Pressure Mean (mm Hg) 64 56 Source Monitor Monitor Position Sitting Blood Pressure Location Right Forearm History Since Last Visit- (Skip if this is Patient's initial visit) Have you changed medications since your No No last visit? Any new allergies or adverse reactions No No Had a fall/change in ADL's that may No No increase risk of falls Signs or symptoms of abuse and/or No No neglect since last visit Have you been in the hospital since your No No last visit? Has dressing in place as prescribed Yes Yes Has compression in place as prescribed N/A N/A Has offloadiing in place as prescribed Yes N/A Experienced any changes in pain level or No No management Left Footwear Removable Cast Slipper Walker/Walking Boot Right Footwear Slipper Slipper Pain Scale: 0-10 Numeric Is Patient Pain Free? Yes No WC - Nurse 1 - General Ulcer Measurement Start: 02/23/22 09:49 Freq: Status: Active Protocol: Activity Type Activity Date Activity User E-sign Co-sign Detail Recorded Client Recorded Date Recorded By Document 03/09/22 09:37 MW [id number] 03/09/22 09:43 MW Document 03/16/22 09:43 AK [id number] 03/16/22 09:55 AK 03/09/22 03/16/22 09:37 09:43 Wound Center Nurse 1 #2- L HEEL -Combined with other wound No -Current Size (cm) - Length 1.0 0.5 -Current Size (cm) - Width 1.2 0.5 -Current Size (cm) - Depth 0.1 0.1 -Total Square Cm 1.20 0.25 -Date of Last Picture (Recall this 03/09/22 03/16/22 field) -Photo Taken Yes Yes -Epithelialization None Present -Tunneling No No -Undermining/Tunneling No No -Circular Undermining No No -Change in Wound Grade/Stage No -Exudate Amt Medium Small -Exudate Type Serosanguineous Serosanguineous -Wound Margin Flat & Intact Distinct, Outline Attached -Granulation Amt Small (1-33%) None Present (0 %) -Granulation Quality [place] N/A -Slough/Fibrin Yes Yes -Necrosis Amt Medium (34-66%) Large (67-100%) -Necrotic Tissue Type Adherent Slough Adherent Slough -Structure Exposed N/A N/A -Texture ([place]-wound Skin Appearance) Assessed,Callus No Abnormality, Assessed -Moisture ([place]-wound Skin Appearance) Assessed, No Abnormality, Maceration Assessed -Color ([place]-wound Skin Appearance) No Abnormality, No Abnormality, Assessed Assessed -Temperature ([place]-wound Skin No Abnormality No Abnormality Appearance) (Pt Warm) (Pt Warm) -Tenderness on Palpation ([place]-wound No No Skin Appearance) -Ulcer Cleansing Rinsed/ Rinsed/ Irrigated with Irrigated with Saline Saline -Foul Odor after Cleansing No No -Anesthetic Used 5% Lidocaine 5% Lidocaine Gel Gel #1 Left lateral ankle -Combined with other wound No No -Current Size (cm) - Length 1.0 0.5 -Current Size (cm) - Width 0.5 0.8 -Current Size (cm) - Depth 0.2 0.1 -Total Square Cm 0.50 0.40 -Date of Last Picture (Recall this 03/09/22 03/16/22 field) -Photo Taken Yes Yes -Epithelialization None Present -Tunneling No No -Undermining/Tunneling No No -Circular Undermining No No -Change in Wound Grade/Stage No -Exudate Amt Medium None Present -Exudate Type Serosanguineous Serosanguineous -Wound Margin Distinct, Distinct, Outline Outline Attached Attached -Granulation Amt None Present (0 None Present (0 %) %) -Granulation Quality N/A N/A -Slough/Fibrin Yes Yes -Necrosis Amt Large (67-100%) Large (67-100%) -Necrotic Tissue Type Adherent Slough Eschar -Structure Exposed N/A N/A -Texture ([place]-wound Skin Appearance) No Abnormality, No Abnormality, Assessed Assessed -Moisture ([place]-wound Skin Appearance) Assessed, No Abnormality, Maceration Assessed -Color ([place]-wound Skin Appearance) No Abnormality, No Abnormality, Assessed Assessed -Temperature ([place]-wound Skin No Abnormality No Abnormality Appearance) (Pt Warm) (Pt Warm) -Tenderness on Palpation ([place]-wound Yes No Skin Appearance) -Ulcer Cleansing Rinsed/ Rinsed/ Irrigated with Irrigated with Saline Saline -Foul Odor after Cleansing No No -Anesthetic Used 5% Lidocaine 5% Lidocaine Gel Gel Lower Limb Edema Present No WC - Nurse 2 - General Ulcer CM Notes Start: 02/23/22 09:49 Freq: Status: Active Protocol: Activity Type Activity Date Activity User E-sign Co-sign Detail Recorded Client Recorded Date Recorded By Document 02/24/22 07:38 WILLIAM [id number] 02/24/22 07:38 Document 03/09/22 10:08 [id number] 03/09/22 10:11 02/24/22 03/09/22 07:38 10:08 Wound Center Nurse 2 #2- L HEEL -Time 10:08 -Correct Patient No No -Correct Side, Site, Position No No -Correct Procedure No No -Procedure Performed No No -Offloading Yes -Type of Offloading Surgical Shoe -Debridement - Subq, 1st 20sq cm No #1 Left lateral ankle -Time 10:10 -Correct Patient Yes -Correct Side, Site, Position Yes -Correct Procedure Yes -Procedure Performed Yes -Type of Procedure Debridement -Clinical Debridement Subcutaneous -Tissue Removed Subcutaneous -Post Debridement (cm) - Length 1.1 -Post Debridement (cm) - Width 0.6 -Post Debridement (cm) - Depth 0.3 -Total Square (Post) (cm) 0.66 -Area of Debridement (cm) - Length 1.1 -Area of Debridement (cm) - Width 0.6 -Total Square (Area) (cm) 0.66 -Tunneling No -Undermining/Tunneling No -Circular Undermining No -Wound/Ulcer Outcome Not Healed -Ulcer Cleansing Rinsed/ Irrigated with Saline -Foul Odor after Cleansing No -Bioengineered Tissue No -Bleeding Controlled with Pressure -Treatment Response Procedure Tolerated Well -Offloading No -Debridement - Subq, 1st 20sq cm Yes Pain Scale: 0-10 Numeric Is Patient Pain Free? Yes Yes WC - Nurse 3 - General Ulcer D/C NN Start: 02/23/22 09:49 Freq: Status: Active Protocol: Activity Type Activity Date Activity User E-sign Co-sign Detail Recorded Client Recorded Date Recorded By Document 02/24/22 07:38 JF [id number] 02/24/22 07:41 Document 03/09/22 10:17 MW [id number] 03/09/22 10:18 MW 02/24/22 03/09/22 07:38 10:17 Wound Care Nurse 3 #2- L HEEL -Ulcer Cleansing Rinsed/ Irrigated with Saline -Foul Odor after Cleansing No -Negative Pressure Wound Therapy N/A -Other Dressing c.hydrogel -Primary Dressing Covered/Secured with Dry Gauze & Roll Gauze, Secured with Tape -Other Covering abd pad #1 Left lateral ankle -Ulcer Cleansing Rinsed/ Irrigated with Saline -Foul Odor after Cleansing No -Negative Pressure Wound Therapy N/A -Other Dressing c.hydrogel -Primary Dressing Covered/Secured with Dry Gauze & Roll Gauze, Secured with Tape Treatment Response Procedure Tolerated Well Pain Scale: 0-10 Numeric Is Patient Pain Free? Yes Yes Teaching: Wound Center Dressing Your Wound -Person Taught Patient,Primary Caregiver -Teaching Method Discussion -Response to teaching Verbalize understanding WC - Visit Discharge Discharge Condition Unstable Stable Ambulatory Status Wheelchair Transportation [facility] Accompanied by caregiver Medication Reconcilliation completed & No provided to patient/care provider Clinical Summary of Care Provided Yes Notes: Patient complained of not feeling well and is very hypotensive BP 70's over 30's. Blood sugar 369. [facility] regarding sending patient to the ER due to low BP and patient complaining of not feeling well. 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 Any wound infection seems to be resolved at this time. Patient indefinitely on doxycycline p.o. per infectious disease. Patient underwent revascularized station surgery mid January [address] Russo. We have been planning for hardware removal but as the wound is healing we will c onsider discontinuing this. Today the lateral ankle wound was debrided down to including level of subcutaneous tissue tissue excisionally of all nonviable tissue without incident. Patient tolerated procedure well hemostasis obtained with light compression. Topical anesthesia used. Pre and postdebridement measurements document nursing notes. Due to recurrent infection to the left lateral ankle we will plan for hardware removal. Lateral ankle being dressed with hydrogel Adaptic DSD. Plantar heel being addressed just with Santyl DSD. Patient is allowed to bear weight for transfer purposes in her cam walking boot assisted by a walker under observation. We will apply for advanced wound care proximal to patient's plantar heel this is a chronic pressure ulceration which is failed conservative treatment at this point. Patient will be continued to follow weekly in the wound care center. (2) Peripheral vascular disease, unspecified: CODE(S): I73.9 - Peripheral vascular disease, unspecified (3) Osteomyelitis of left ankle: CODE(S): M86.9 - Osteomyelitis, unspecified
== END 2022-03-22 23:59 | disposition home or self-care (01) ==
LOC: WC 09:45
PROVIDERS: PCP Internal Medicine; Referring Provider Podiatrist; Visit Provider Podiatrist
DX: T84.89XA Other specified complication of internal orthopedic prosthetic devices, implants and grafts, initial encounter (principal); E11.51 Type 2 diabetes mellitus with diabetic peripheral angiopathy without gangrene; L97.324 Non-pressure chronic ulcer of left ankle with necrosis of bone; M86.8X7 Other osteomyelitis, ankle and foot; E11.69 Type 2 diabetes mellitus with other specified complication; Z79.4 Long term (current) use of insulin; Z79.02 Long term (current) use of antithrombotics/antiplatelets; Z79.890 Hormone replacement therapy; Z79.899 Other long term (current) drug therapy; Y83.8 Other surgical procedures as the cause of abnormal reaction of the patient, or of later complication, without mention of misadventure at the time of the procedure
CPT/HCPCS: 11042; 82962; 99213; G0463

== ENCOUNTER → 2022-03-24 | Outpatient (CLI) | payer MEDICARE, MEDICAID, SELFPAY ==
[2022-03-24 13:15] LABS: ALB/GLOB Ratio 0.7 RATIO (0.9-2.4); AST(SGOT) 13 U/L (15-37); Alanine Aminotransfer ALT/SGPT 19 U/L (13-56); Albumin, Serum 2.8 g/dL (3.2-5.0); Alkaline Phosphatase 74 U/L (45-117); Anion Gap 6 (5-15); BUN 44 mg/dL (7-18); BUN/Creat Ratio 18.7 RATIO (10-20); Calcium,Total 9.4 mg/dL (8.5-10.1); Chloride 103 mmol/L (98-107); Creatinine, Serum 2.35 mg/dL (0.55-1.02); EST Glomerular Filtration Rate 21 mL/min (>60); Est Glom Filt Rate - Afr Amer 25 mL/min (>60); Glucose 258 mg/dL (74-106); Potassium 4.7 mmol/L (3.5-5.1); Protein, Total 6.8 g/dL (6.4-8.2); Sodium Level 135 mmol/L (136-145)
[2022-03-24 13:22] LABS: Absolute Lymphocyte Count 3.07 X10^3/uL (0.83-4.51); Absolute Neutrophil Count 4.8 X10^3/uL (2.0-7.7); Basophil# 0.01 X10^3/uL; Basophil% 0.1 % (0-1); Eosinophil# 0.25 X10^3/uL; Eosinophils% 2.8 % (0-5); Hematocrit 38.1 % (37-47); Hemoglobin 11.7 g/dL (12.0-15.0); Lymphocyte # 3.07 X10^3/ul (0.83-4.51); Lymphocyte % 34.5 % (19-41); Mean Corp Hgb Conc 30.7 g/dL (32-36); Mean Corpuscular Hgb 28.1 pg (27.0-32.0); Mean Corpuscular Volume 91.4 fL (81-99); Mean Platelet Vol. 12.2 fl (6.2-12.0); Monocyte# 0.77 X10^3/uL; Monocyte% 8.7 % (0-10); NRBC Flagged by Analyzer 0 % (0-5); Neutrophil # 4.78 X10^3/uL (2.7-7.7); Neutrophil % 53.7 % (47-70); Platelet Count 252 K/mm3 (150-450); RBC Distribution Width CV 14.1 % (11.6-14.6); RBC Distribution Width SD 47.6 fl (35.1-43.9); Red Blood Count 4.17 M/mm3 (4.2-5.4); White Blood Count 8.9 K/mm3 (4.4-11.0)
== END | disposition home or self-care (01) ==
LOC: MFPLAB 10:09
PROVIDERS: PCP Internal Medicine; Visit Provider Family Medicine
DX: Z01.818 Encounter for other preprocedural examination (principal)
CPT/HCPCS: 36415; 80053; 85025

== ENCOUNTER 2022-04-06 09:45 | Outpatient (RCR) | payer MEDICARE, MEDICAID, SELFPAY ==
[2022-03-23 00:12] VITALS: BP 86/42; PULSE 67; RESP 16; TEMP 35.8
--- NOTE | 2022-03-23 10:30 | PCM.WC.PN ---
History of Present Illness Date of Service: 03/23/22 Progress of Wound: 87-year-old female presents from senior living facility today feeling much better today. Denies any constitutional symptoms. Has pain to her plantar left heel and lateral left ankle which is limited to manipulation of the sites. 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 Patient was recently revascularized per Dr. Russo. She has been on IV antibiotics Ancef for 5 weeks with a stop date of 02/24/2022. Objective Data Objective Data Vital Signs: Vital Signs Temp Pulse Resp BP 96.5 F L 67 16 86/42 L 03/23/22 00:12 03/23/22 00:12 03/23/22 00:12 03/23/22 00:12 Physical Exam Narrative Neurovascular status unchanged from previous visit. Dermatologic: Full-thickness ulceration noted to the distal lateral left ankle incisional site with exposed hardware. No purulent drainage slightly resolved erythema edema no other signs of infection. Plantar heel demonstrates mixed fiber granular base. These wounds appear to be improving this week. Musculoskeletal rest rectus alignment of the left ankle. Full ankle joint range of motion however painful and guarded. No pain with calf squeeze or palpation of popliteal fossa. 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 Any wound infection seems to be resolved at this time. Patient indefinitely on doxycycline p.o. per infectious disease. Patient underwent revascularized station surgery mid January [address] Russo. We have been planning for hardware removal but as the wound is healing we will consider discontinuing this. Today the lateral ankle wound was debrided down to including level of subcutaneous tissue tissue excisionally of all nonviable tissue without incident. Patient tolerated procedure well hemostasis obtained with light compression. Topical anesthesia used. Pre and postdebridement measurements document nursing notes. Due to recurrent infection to the left lateral ankle we will plan for hardware removal. Lateral ankle being dressed with hydrogel Adaptic DSD. Plantar heel being addressed just with Santyl DSD. Patient is allowed to bear weight for transfer purposes in her cam walking boot assisted by a walker under observation. We will apply for advanced wound care proximal to patient's plantar heel this is a chronic pressure ulceration which is failed conservative treatment at this point. Patient will be continued to follow weekly in the wound care center. Planning to proceed with hardware removal to left ankle. (2) Peripheral vascular disease, unspecified: CODE(S): I73.9 - Peripheral vascular disease, unspecified (3) Osteomyelitis of left ankle: CODE(S): M86.9 - Osteomyelitis, unspecified
[2022-03-23 11:32] VITALS: BP 139/69; PULSE 96; TEMP 36.2
[2022-04-06 09:57] VITALS: BP 98/40; PULSE 54; RESP 16; TEMP 36.1
--- NOTE | 2022-04-06 10:24 | PCM.WC.PN ---
History of Present Illness Date of Service: 04/06/22 Progress of Wound: 87-year-old female presents from care home facility today feeling much better today. Denies any constitutional symptoms. Has pain to her plantar left heel and lateral left ankle which is limited to manipulation of the sites. 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 Patient was recently revascularized per Dr. Russo. She has been on IV antibiotics Ancef for 5 weeks with a stop date of 02/24/2022. Subjective Subjective 87-year-old female presents to clinic for follow-up on left ankle ulceration plantar heel ulceration both improving at this time. Patient is on p.o. doxycycline permanently. Patient denies constitutional symptoms. Patient has wound pain to the wound sites when manipulated. No other complaints. Objective Data Objective Data Vital Signs: Vital Signs Temp Pulse Resp BP O2 Del Method 97 F L 54 L 16 98/40 L Room Air 04/06/22 09:57 04/06/22 09:57 04/06/22 09:57 04/06/22 09:57 04/06/22 09:57 Oxygen Delivery Method Room Air Physical Exam Narrative Neurovascular status unchanged from previous visit. Dermatologic: Full-thickness ulceration noted to the distal lateral left ankle incisional site with exposed hardware. No purulent drainage slightly resolved erythema edema no other signs of infection. Plantar heel demonstrates mixed fiber granular base. These wounds appear to be improving this week. Musculoskeletal rest rectus alignment of the left ankle. Full ankle joint range of motion however painful and guarded. No pain with calf squeeze or palpation of popliteal fossa. Debridement Note Debridement Note Post-Debridement Measurements and Additional Note: Post-Debridement Measurements/Treatment - Nurse 1 - General Ulcer Assessment Start: 03/23/22 10:27 Freq: Status: Active Protocol: LEXY.LOWEXPriti Activity Type Activity Date Activity User E-sign Co-sign Detail Recorded Client Recorded Date Recorded By Document 03/23/22 11:32 AK [id number] 03/23/22 11:35 AK Document 04/06/22 09:57 [facility] [id number] 04/06/22 10:04 BMF 03/23/22 04/06/22 11:32 09:57 - Today's Visit Information Type of service Follow-up Visit Follow-up Visit (Physician/MATHEMATICS INSTRUCTOR (Physician/MATHEMATICS INSTRUCTOR ) ) Arrival Mode Wheelchair Wheelchair Transfer Assistance Other Transfer Assist (Other) 1 stand by Patient Identification Verified (Name & Yes Yes ) Patient Requires Transmission-Based No Precautions Safety Precautions NA Vital Signs Temperature (97.8 F-99.1 F) 97.2 F L 97 F L Temperature Source Temporal Temporal Pulse Rate (60-100) 96 54 L Pulse Location Monitor Monitor Respiratory Rate (12-18) 16 Respiratory rate source Observation Oxygen Delivery Method Room Air Blood Pressure (90/60-120/80) 139/69 H 98/40 L Blood Pressure Mean (mm Hg) 92 59 Source Monitor Monitor Position Sitting Blood Pressure Location Left Forearm Comment per pt her bp is usually low. initial bp here was 98/36 History Since Last Visit- (Skip if this is Patient's initial visit) Have you changed medications since your No No last visit? Any new allergies or adverse reactions No No Had a fall/change in ADL's that may No No increase risk of falls Signs or symptoms of abuse and/or No No neglect since last visit Have you been in the hospital since your No last visit? Has dressing in place as prescribed Yes Yes Has compression in place as prescribed N/A N/A Has offloadiing in place as prescribed N/A N/A Experienced any changes in pain level or No No management Left Footwear Regular Shoe Right Footwear Regular Shoe Pain Scale: 0-10 Numeric Is Patient Pain Free? Yes Yes WC - Nurse 1 - General Ulcer Measurement Start: 03/23/22 10:27 Freq: Status: Active Protocol: Activity Type Activity Date Activity User E-sign Co-sign Detail Recorded Client Recorded Date Recorded By Document 03/23/22 11:32 MS [id number] 03/23/22 11:35 MS Document 04/06/22 09:57 [facility] [id number] 04/06/22 10:04 [facility] 03/23/22 04/06/22 11:32 09:57 Wound Center Nurse 1 #2- L HEEL -Combined with other wound No No -Current Size (cm) - Length 0.8 0.9 -Current Size (cm) - Width 0.8 0.5 -Current Size (cm) - Depth 0.2 0.3 -Total Square Cm 0.64 0.45 -Date of Last Picture (Recall this 03/23/22 04/06/22 field) -Photo Taken Yes Yes -Epithelialization None Present -Tunneling No No -Undermining/Tunneling No No -Circular Undermining No No -Change in Wound Grade/Stage No -Exudate Amt Medium Medium -Exudate Type Serosanguineous Serous -Wound Margin Distinct, Distinct, Outline Outline Attached Attached -Granulation Amt None Present (0 None Present (0 %) %) -Granulation Quality N/A -Slough/Fibrin Yes Yes -Necrosis Amt Small (1-33%) Large (67-100%) -Necrotic Tissue Type Adherent Slough Adherent Slough -Structure Exposed N/A -Texture ([place]-wound Skin Appearance) No Abnormality, Assessed, Assessed Scarring -Moisture ([place]-wound Skin Appearance) No Abnormality, Assessed Assessed -Color ([place]-wound Skin Appearance) No Abnormality, Assessed, Assessed Erythema -Temperature ([place]-wound Skin No Abnormality No Abnormality Appearance) (Pt Warm) (Pt Warm) -Tenderness on Palpation ([place]-wound No Yes Skin Appearance) -Ulcer Cleansing Rinsed/ Rinsed/ Irrigated with Irrigated with Saline Saline -Foul Odor after Cleansing No No -Anesthetic Used 5% Lidocaine 5% Lidocaine Gel Gel #1 Left lateral ankle -Combined with other wound No No -Current Size (cm) - Length 0.4 0.7 -Current Size (cm) - Width 1 0.5 -Current Size (cm) - Depth 0.2 0.2 -Total Square Cm 0.4 0.35 -Date of Last Picture (Recall this 04/06/22 field) -Photo Taken No Yes -Epithelialization None Present -Tunneling No No -Undermining/Tunneling No No -Circular Undermining No No -Change in Wound Grade/Stage No -Exudate Amt Small Medium -Exudate Type Serosanguineous Serosanguineous -Wound Margin Distinct, Distinct, Outline Outline Attached Attached -Granulation Amt Small (1-33%) None Present (0 %) -Granulation Quality N/A -Slough/Fibrin Yes Yes -Necrosis Amt Small (1-33%) Large (67-100%) -Necrotic Tissue Type Adherent Slough Adherent Slough -Structure Exposed N/A Joint -Texture ([place]-wound Skin Appearance) No Abnormality, Assessed, Assessed Scarring -Moisture ([place]-wound Skin Appearance) No Abnormality, Assessed,Dry/ Assessed Scaly -Color ([place]-wound Skin Appearance) No Abnormality, Assessed, Assessed Erythema -Temperature ([place]-wound Skin No Abnormality No Abnormality Appearance) (Pt Warm) (Pt Warm) -Tenderness on Palpation ([place]-wound No Yes Skin Appearance) -Ulcer Cleansing Rinsed/ Rinsed/ Irrigated with Irrigated with Saline Saline -Foul Odor after Cleansing No No -Anesthetic Used 5% Lidocaine 5% Lidocaine Gel Gel -Wound Comment(s) exposed exposed hardware hardware WC - Nurse 2 - General Ulcer CM Notes Start: 03/23/22 10:27 Freq: Status: Active Protocol: Activity Type Activity Date Activity User E-sign Co-sign Detail Recorded Client Recorded Date Recorded By Document 03/23/22 10:30 [id number] 03/23/22 10:33 Document 04/06/22 10:14 [id number] 04/06/22 10:21 03/23/22 04/06/22 10:30 10:14 Wound Center Nurse 2 #2- L HEEL -Time 10:31 10:20 -Correct Patient Yes Yes -Correct Side, Site, Position Yes Yes -Correct Procedure Yes Yes -Procedure Performed Yes Yes -Type of Procedure Debridement Debridement -Clinical Debridement Subcutaneous Subcutaneous -Tissue Removed Subcutaneous Subcutaneous -Post Debridement (cm) - Length 1.1 0.8 -Post Debridement (cm) - Width 1.1 0.5 -Post Debridement (cm) - Depth 0.1 0.2 -Total Square (Post) (cm) 1.21 0.40 -Area of Debridement (cm) - Length 1.1 0.8 -Area of Debridement (cm) - Width 1.1 0.5 -Total Square (Area) (cm) 1.21 0.40 -Tunneling No No -Undermining/Tunneling No No -Circular Undermining No No -Wound/Ulcer Outcome Not Healed Not Healed -Ulcer Cleansing Rinsed/ Rinsed/ Irrigated with Irrigated with Saline Saline -Foul Odor after Cleansing No No -Bioengineered Tissue No No -Bleeding Controlled with Pressure Pressure -Treatment Response Procedure Procedure Tolerated Well Tolerated Well -Offloading No Yes -Type of Offloading Surgical Shoe -Debridement - Subq, 1st 20sq cm Yes Yes #1 Left lateral ankle -Time 10:32 -Correct Patient Yes No -Correct Side, Site, Position Yes No -Correct Procedure Yes No -Procedure Performed Yes No -Type of Procedure Debridement -Clinical Debridement Subcutaneous -Tissue Removed Subcutaneous -Post Debridement (cm) - Length 0.8 -Post Debridement (cm) - Width 0.5 -Post Debridement (cm) - Depth 0.2 -Total Square (Post) (cm) 0.40 -Area of Debridement (cm) - Length 0.8 -Area of Debridement (cm) - Width 0.5 -Total Square (Area) (cm) 0.40 -Tunneling No -Undermining/Tunneling No -Circular Undermining No -Wound/Ulcer Outcome Not Healed Not Healed -Ulcer Cleansing Rinsed/ Irrigated with Saline -Foul Odor after Cleansing No -Bioengineered Tissue No -Bleeding Controlled with Pressure -Treatment Response Procedure Tolerated Well -Offloading No -Debridement - Subq, 1st 20sq cm No No Pain Scale: 0-10 Numeric Is Patient Pain Free? Yes Yes - Nurse 3 - General Ulcer D/C NN Start: 03/23/22 10:27 Freq: Status: Active Protocol: Activity Type Activity Date Activity User E-sign Co-sign Detail Recorded Client Recorded Date Recorded By Document 03/23/22 10:47 [facility] [id number] 03/23/22 10:47 [facility] 03/23/22 10:47 Wound Care Nurse 3 #2- L HEEL -Ulcer Cleansing Rinsed/ Irrigated with Saline -Foul Odor after Cleansing No -Other Dressing HYDROGEL -Primary Dressing Covered/Secured with Dry Gauze & Roll Gauze, Secured with Tape -Other Covering HEEL HAT #1 Left lateral ankle -Ulcer Cleansing Rinsed/ Irrigated with Saline -Foul Odor after Cleansing No -Other Dressing HYDROGEL -Primary Dressing Covered/Secured with Dry Gauze & Roll Gauze, Secured with Tape Treatment Response Procedure Tolerated Well Pain Scale: 0-10 Numeric Is Patient Pain Free? 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 Any wound infection seems to be resolved at this time. Patient indefinitely on doxycycline p.o. per infectious disease. Patient underwent revascularized station surgery mid January [address] Russo. We have been planning for hardware removal but as the wound is healing we will consider discontinuing this. Today the lateral ankle wound was debrided down to including level of subcutaneous tissue tissue excisionally of all nonviable tissue without incident. Patient tolerated procedure well hemostasis obtained with light compression. Topical anesthesia used. Pre and postdebridement measurements document nursing notes. Due to recurrent infection to the left lateral ankle we will plan for hardware removal. Lateral ankle being dressed with hydrogel Adaptic DSD. Plantar heel being addressed just with Santyl DSD. Patient is allowed to bear weight for transfer purposes in her cam walking boot assisted by a walker under observation. Patient will be continued to follow weekly in the wound care center. Planning to proceed with hardware removal to left ankle. Planning for surgical intervention on 04/23/2022 consisting of left ankle hardware removal with primary closure. Left plantar heel wound excisional debridement with application of epi cord graft. All inherent risks benefits and alternative treatments were discussed with patient in great detail. Patient signed consent at this time we will proceed. (2) Peripheral vascular disease, unspecified: CODE(S): I73.9 - Peripheral vascular disease, unspecified (3) Osteomyelitis of left ankle: CODE(S): M86.9 - Osteomyelitis, unspecified
== END 2022-04-21 23:59 | disposition home or self-care (01) ==
LOC: WC 09:45
PROVIDERS: PCP Internal Medicine; Referring Provider Podiatrist; Visit Provider Podiatrist
DX: T84.89XA Other specified complication of internal orthopedic prosthetic devices, implants and grafts, initial encounter (principal); L97.324 Non-pressure chronic ulcer of left ankle with necrosis of bone; L97.429 Non-pressure chronic ulcer of left heel and midfoot with unspecified severity; M86.9 Osteomyelitis, unspecified; I73.9 Peripheral vascular disease, unspecified; Z79.4 Long term (current) use of insulin; Y83.1 Surgical operation with implant of artificial internal device as the cause of abnormal reaction of the patient, or of later complication, without mention of misadventure at the time of the procedure; Z79.899 Other long term (current) drug therapy
CPT/HCPCS: 11042

== ENCOUNTER 2022-04-23 14:28 | Observation (INO) | payer MEDICARE, MEDICAID, SELFPAY ==
[2022-04-23] VITALS (12 sets, daily range): BP systolic 96–140; BP diastolic 35–53; PULSE 56–84; RESP 16–18; TEMP 36.4–37.5; O2SAT 93–100; BMI 29.8
[2022-04-23] MEDS: Lactated Ringers 1,000 ML 15 ML IV ×2 (11:40→14:00)
[2022-04-23] MEDS: Bupivacaine 0.25% 30 ML Vial (13:20)
--- NOTE | 2022-04-23 13:30 | RAD_ITS ---
INDICATION: INFECTION EXAMINATION/TECHNIQUE: X-RAY - LEFT XR Ankle 2 Views 3 VIEWS COMPARISON: None. FINDINGS: 2 intraoperative images obtained during screw fixation of the medial malleolus. RAD/Ankle 2 Views IMPRESSION: Intraoperative images obtained for hardware localization. Electronically Signed: Mendy Hernandez MD at 17:00 EST Reading Location ID and State: [id number] / Tel , Service support ,
[2022-04-23] MEDS: BACITRACIN/POLYMYXIN B 15 GM Tube 1 APPLIC (14:14)
[2022-04-23 14:15] LABS: Bedside Glucose 146 mg/dL (74-106)
--- NOTE | 2022-04-23 14:35 | PCM.OPRPT ---
Report of Operation Date of Procedure: 04/23/22 Pre-Operative Diagnosis: 1. painful retained hardware left ankle 2. Infected left ankle wound 3. Pressure ulceration left plantar heel full-thickness Post-Operative Diagnosis: SAME Surgery/Procedure Performed:: 1. Left ankle hardware removal 2. Left plantar heel wound excisional debridement with surgical graft site preparation 3. Application of skin substitute left plantar heel Description of Surgical Findings:: Patient been doing with a chronic wound to lateral ankle secondary to an infected incisional site with exposed hardware in setting of diabetes with peripheral arterial disease. Patient has been revascularized by vascular surgeon and has been seen by infectious disease and placed on long-term oral doxycycline to prevent any systemic issues with regards to infection. Despite failure of wound healing her underlying fractures did heal and decision was made to remove the potentially infected hardware to allow for lateral incisional healing and return to ambulation. Patient developed a pressure ulceration to the plantar heel during the postoperative course as well plan was for debridement of this today with application of a skin substitute graft. Surgeon: Pal Francisco coconut jelly roller: None (ELEUTERIO BEVERAGE) Type of Anesthesia: General Special Medications: 20 cc half percent Marcaine plain Specimen's removed: Left lateral ankle hardware including plate and screws and tight rope along with free lavage incisional cultures and post lavage incisional cultures of the left ankle Drains: None Estimated Blood Loss (mL): Less than Description of Procedure: Patient was brought back to the operating placed In supine position patient was induced under general anesthesia all osseous prominences were offloaded prevent any compression neuropraxia's. Once due to under general anesthesia left lower extremity was positioned. Well-padded thigh tourniquet was applied left lower extremity this was not used. Preoperatively ankle ring block was performed to the left lateral ankle with local infiltration technique used as well using 20 cc of half percent Marcaine plain. Left lower extremity was then scrubbed prepped draped using typical aseptic manner. Once cleared by anesthesia a lateral incision was made through the skin down to the level of the fibular plate using #15 blade any bleeders were identified cauterized at this time neurovascular structures in this area were protected with blunt retraction. The fibular plate was exposed no devitalized tissue was noted a fibular plate and screws were removed including the tight rope which required dissection along the medial ankle as well. This was confirmed all hardware was removed on fluoroscopic imaging using AP and lateral radiographs. Incisional site was flushed with low-pressure pulse lavage. This was performed using copious mami normal sterile saline prior to doing this. Vaginal cultures from the incisional site were taken. Post lavage swab cultures were taken as well. Plantar left heel wound was also excisionally debrided down to including level of subcutaneous tissue of all nonviable tissue using #15 blade without incident. Predebridement the wound was 1.0 x 1.0 x 0.3 cm. Postdebridement the wound was 1.2 x 1.2 x 0.3 cm with 100% granular base clean skin edges no deep probing or undermining. The surgical site was then carefully prepped for receipt of the skin graft substitute. Skin graft substitute was then applied to the plantar left heel this consisted of a 3 x 5 cm epi cord graft by [employer]. This was moistened with saline soaked 4 x 4's. The entire graft was used no waste. Overlying Adaptic Steri-Strips were applied to the site. The medial and lateral ankle incisions were then closed with simple interrupted buried deep 2-0 Vicryl. Followed by skin closure with hansa. This was dressed with bacitracin Adaptic 4 x 4's Kerlix and a well-padded Blackwell posterior splint. No tourniquet was used throughout the case. Patient tolerated procedure well. Patient was transferred to PACU vital stable and stable vascular status intact all digits for further monitoring prior to discharge. Patient demonstrated healthy bleeding throughout the case. Patient tolerated anesthesia procedure well in apparent satisfactory condition and will be monitored overnight to ensure adequate pain control and no issues. Patient will then be discharged back to her nursing facility and will likely require additional 2 to 4 weeks of nonweightbearing in order to allow for healing of her wounds and incisional sites.
[2022-04-23 16:16] LABS: Bedside Glucose 141 mg/dL (74-106)
[2022-04-23 16:56] LABS: Absolute Lymphocyte Count 2.16 X10^3/uL (0.83-4.51); Absolute Neutrophil Count 5.6 X10^3/uL (2.0-7.7); Basophil# 0.02 X10^3/uL; Basophil% 0.2 % (0-1); Eosinophil# 0.08 X10^3/uL; Eosinophils% 0.9 % (0-5); Hematocrit 33.5 % (37-47); Hemoglobin 10.5 g/dL (12.0-15.0); Lymphocyte # 2.16 X10^3/ul (0.83-4.51); Lymphocyte % 25.4 % (19-41); Mean Corp Hgb Conc 31.3 g/dL (32-36); Mean Corpuscular Hgb 27.7 pg (27.0-32.0); Mean Corpuscular Volume 88.4 fL (81-99); Mean Platelet Vol. 11.6 fl (6.2-12.0); Monocyte# 0.65 X10^3/uL; Monocyte% 7.6 % (0-10); NRBC Flagged by Analyzer 0 % (0-5); Neutrophil # 5.58 X10^3/uL (2.7-7.7); Neutrophil % 65.7 % (47-70); Platelet Count 258 K/mm3 (150-450); RBC Distribution Width CV 14.1 % (11.6-14.6); RBC Distribution Width SD 45.4 fl (35.1-43.9); Red Blood Count 3.79 M/mm3 (4.2-5.4); White Blood Count 8.5 K/mm3 (4.4-11.0)
[2022-04-23 17:33] LABS: ALB/GLOB Ratio 0.8 RATIO (0.9-2.4); AST(SGOT) 10 U/L (15-37); Alanine Aminotransfer ALT/SGPT 14 U/L (13-56); Albumin, Serum 2.7 g/dL (3.2-5.0); Alkaline Phosphatase 64 U/L (45-117); Anion Gap 4 (5-15); BUN 33 mg/dL (7-18); BUN/Creat Ratio 19.3 RATIO (10-20); Calcium,Total 9.6 mg/dL (8.5-10.1); Chloride 109 mmol/L (98-107); Creatinine, Serum 1.71 mg/dL (0.55-1.02); EST Glomerular Filtration Rate 30 mL/min (>60); Est Glom Filt Rate - Afr Amer 37 mL/min (>60); Estimated Creatinine Clearance 19.02 ml/min; Globulin 3.6 g/dL (2.2-4.2); Glucose 149 mg/dL (74-106); Potassium 4.2 mmol/L (3.5-5.1); Protein, Total 6.3 g/dL (6.4-8.2); Sodium Level 142 mmol/L (136-145)
[2022-04-23] MEDS: oxyCODONE 5 MG Tablet PO (18:22)
--- NOTE | 2022-04-23 18:46 | PN.HOSP_ITS ---
Subjective Subjective Patient notes ongoing throbbing aching to her foot currently rating it 3 out of 10 in severity and reports that she was just given a small pain medication otherwise no acute complaints at this time. Patient was originally going to be transition back to her skilled facility but given her underlying dementia and pain control necessity orthopedic surgery decision to admit instead. Patient denies fevers, chills, nausea, emesis, abdominal pain, chest pain or dyspnea. Objective Data Objective Data Vital Signs: Vital Signs Temp Pulse Resp BP Pulse Ox O2 Del Method O2 Flow Rate 98 F 67 18 140/50 H 100 Room Air 2 04/23/22 18:13 04/23/22 18:13 04/23/22 18:13 04/23/22 18:13 04/23/22 18:13 04/23/22 18:13 04/23/22 17:03 Oxygen Flow Rate (L/min) 2 Oxygen Delivery Method Room Air Weight: 163 lb 2.273 oz Body Mass Index (BMI) 29.8 Intake & Output: Intake and Output for Last 24 Hours 04/21/22 04/22/22 04/23/22 23:59 23:59 23:59 Intake Total 1050 / 1050 Balance 1050 / 1050 Lab / Micro Data Result Diagrams: 04/23/22 16:38 04/23/22 16:38 Labs: Laboratory Results - last 24 hr 04/23/22 12:16: POC Glucose 146 H 04/23/22 15:54: POC Glucose 141 H 04/23/22 16:38: WBC 8.5, RBC 3.79 L, Hgb 10.5 L, Hct 33.5 L, MCV 88.4, MCH 27.7, MCHC 31.3 L, RDW Std Deviation 45.4 H, RDW Coeff of Suzy 14.1, Plt Count 258, MPV 11.6, Immature Gran % (Auto) 0.200, Neut % (Auto) 65.7, Lymph % (Auto) 25.4, [place] % (Auto) 7.6, Eos % (Auto) 0.9, Baso % (Auto) 0.2, Absolute Neuts (auto) 5.6, Absolute Lymphs (auto) 2.16, Nucleated RBC % 0 04/23/22 16:38: Sodium 142, Potassium 4.2, Chloride 109 H, Carbon Dioxide 29.0, Anion Gap 4 L, BUN 33 H, Creatinine 1.71 H, Estim Creat Clear Calc 19.02, Est GFR (MDRD) Af Amer 37 L, Est GFR (MDRD) Non-Af 30 L, BUN/Creatinine Ratio 19.3, Glucose 149 H, Calcium 9.6, Total Bilirubin 0.30, AST 10 L, ALT 14, Alkaline Phosphatase 64, Total Protein 6.3 L, Albumin 2.7 L, Globulin 3.6, Albumin/Globulin Ratio 0.8 L Radiography Diagnostic Testing: Radiology Impression Ankle X-Ray 04/23/22 13:30 IMPRESSION: Intraoperative images obtained for hardware localization. Electronically Signed: Mendy Hernandez MD at 17:00 EST Reading Location ID and State: [id number] / Tel , Service support , Physical Exam Narrative Physical Examination: General: Awake, alert, oriented to self, place and some recent events, does have underlying dementia but currently calm and appropriately interactive, notes discomfort and throbbing to her foot status post recent OR. Skin: Normal color, normal turgor, no icterus, no cyanosis except for recent operative intervention left foot with large dressing in place, no drainage HEENT: AT/NC, EOMI, PERRLA, mildly dry MM. Lungs: Mildly diminished, greater bases, appropriate effort, no rales, ronchi or wheezing. Heart: Regular rate and rhythm; no gallop, rub audible. Abdomen: Soft, obese, NTTP, ND, distant BS Extremities: No cyanosis, no clubbing, left foot status post recent operative intervention with large dressing in place, no drainage. Neurological: Patient awake, alert, oriented as noted, cognitive function s uspect currently based intact with reportedly underlying dementia, pupils equally reactive to light and accommodation, cranial nerves grossly normal, moving all 4 extremities although expected limitation left lower extremity given recent MR, strength accordingly moderately to severely globally decreased. Psychiatric: Affect appears mildly fatigued otherwise normal, no acute evidence of depressive or anxiety feelings. 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 Francisco. #1. Infected left ankle wound with retained hardware with concurrent pressure ulceration of the left plantar heel, full-thickness: Failed conservative outpatient interventions, admitted per Podiatry Dr. Francisco, s/p 04/23/22 left ankle hardware removal, left plantar heel wound excisional debridement with surgical graft site preparation and application of skin substitute to the left plantar heel, post-operative pain management, bowel regimen, DVT Prophylaxis, PT/OT/CM per Orthopedic surgery discretion. Note currently surgical deep wound cultures obtained and pending per podiatry. Currently not on antibiotic therapy per review of their current list, we will do for any antibiotic therapy considerations to their service. #2. Chronic Kidney Disease Stage III, unclear subtype: Admission BUN/Cr 33/1.71, baseline renal function appears primarily more recently 1.3-1.5 starting 01/2022 however prior to this had been 0.9-1.0 primarily, repeat BMP in AM. If renal function increases further may need to consider holding nephrotoxic regimen temporarily with further evaluation. #3. Chronic anemia/iron deficiency anemia: Admission hemoglobin 10.8, baseline noted prior 10-11 range, stable, continue to trend, continue iron supplementation. #4. Hypertension complicated by concurrent orthostasis: Continue home regimen including Lasix, losartan, PRN hydralazine. Also on chronic twice daily midodrine which will also be continued. Maintained on fall precautions. #5. Hyperlipidemia: Continue home statin regimen. #6. History CVA with carotid disease: Recommend resumption of Plavix once allowed per orthopedic surgery, continue statin, hypertensive regimen, diabetic regimen with adjustments as noted. #7. Diabetes mellitus type II: Hold oral home regimen, continue home insulin regimen, ADA diet, accu checks w/ ISS. #8. Anxiety and depression: We will continue patient home mirtazapine regimen. #9. Chronic COPD: Not on chronic regimen per review of current list, will have PRN albuterol, HOB, IS parameters. #10. Hypothyroidism: We will continue patient on levothyroxine regimen #11. Obesity: Weight loss and lifestyle changes encouraged. #12. GERD: We will continue patient on PPI. #13. DVT prophylaxis: SCD recommended to at least right lower extremity, chemoprophylaxis per surgery discretion. Charges/Coding Visit Charges Inpatient E&M: 23431 [facility] L3
[2022-04-23] MEDS: 0.9% Normal Saline 1,000 ML 100 ML IV (19:09)
[2022-04-23] MEDS: Insulin Glargine-YFGN 100 UNIT/ML Pen 26 UNIT SC (23:03)
[2022-04-23] MEDS: Acetaminophen 500 MG Tablet PO (23:03)
[2022-04-23] MEDS: Pantoprazole Sodium 40 MG Tablet PO (23:04)
[2022-04-23] MEDS: Nystatin Powder 15gm Bottle 1 APPLIC TOPICAL (23:04)
[2022-04-23] MEDS: Mirtazapine 15 MG Tablet 7.5 MG PO (23:04)
[2022-04-23] MEDS: Midodrine HCl 5 MG Tablet PO (23:04)
[2022-04-23] MEDS: Atorvastatin Calcium 20 MG Tablet PO (23:07)
[2022-04-24 00:55] LABS: Bedside Glucose 176 mg/dL (74-106)
[2022-04-24] MEDS: oxyCODONE 5 MG Tablet PO ×2 (01:11→14:53)
[2022-04-24] MEDS: Levothyroxine 88 MCG Tablet PO (04:28)
[2022-04-24 04:32] VITALS: BP 117/58; PULSE 64; RESP 18; TEMP 36.6; O2SAT 95
[2022-04-24 04:36] VITALS: BP 117/58; PULSE 64; RESP 18; TEMP 36.6; O2SAT 95
[2022-04-24] MEDS: 0.9% Saline Lock 10 ML Syringe IV (04:41)
[2022-04-24] MEDS: Nystatin Powder 15gm Bottle 1 APPLIC TOPICAL ×2 (06:41→13:10)
[2022-04-24] MEDS: Acetaminophen 500 MG Tablet PO ×2 (06:44→14:53)
[2022-04-24 07:29] LABS: Absolute Lymphocyte Count 3.38 X10^3/uL (0.83-4.51); Absolute Neutrophil Count 4.4 X10^3/uL (2.0-7.7); Basophil# 0.02 X10^3/uL; Basophil% 0.2 % (0-1); Eosinophil# 0.19 X10^3/uL; Eosinophils% 2.1 % (0-5); Hematocrit 32.4 % (37-47); Hemoglobin 10.1 g/dL (12.0-15.0); Lymphocyte # 3.38 X10^3/ul (0.83-4.51); Lymphocyte % 37.8 % (19-41); Mean Corp Hgb Conc 31.2 g/dL (32-36); Mean Corpuscular Hgb 28.1 pg (27.0-32.0); Mean Corpuscular Volume 90.3 fL (81-99); Mean Platelet Vol. 11.7 fl (6.2-12.0); Monocyte# 0.91 X10^3/uL; Monocyte% 10.2 % (0-10); NRBC Flagged by Analyzer 0 % (0-5); Neutrophil % 49.4 % (47-70); Platelet Count 214 K/mm3 (150-450); RBC Distribution Width CV 14.1 % (11.6-14.6); RBC Distribution Width SD 46.4 fl (35.1-43.9); Red Blood Count 3.59 M/mm3 (4.2-5.4); White Blood Count 8.9 K/mm3 (4.4-11.0)
[2022-04-24 07:31] VITALS: O2SAT 95
[2022-04-24 08:07] LABS: ALB/GLOB Ratio 0.7 RATIO (0.9-2.4); AST(SGOT) 14 U/L (15-37); Alanine Aminotransfer ALT/SGPT 14 U/L (13-56); Albumin, Serum 2.6 g/dL (3.2-5.0); Alkaline Phosphatase 63 U/L (45-117); Anion Gap 5 (5-15); BUN 29 mg/dL (7-18); BUN/Creat Ratio 18.1 RATIO (10-20); Calcium,Total 9.4 mg/dL (8.5-10.1); Chloride 108 mmol/L (98-107); EST Glomerular Filtration Rate 33 mL/min (>60); Est Glom Filt Rate - Afr Amer 39 mL/min (>60); Estimated Creatinine Clearance 20.33 ml/min; Globulin 3.6 g/dL (2.2-4.2); Glucose 83 mg/dL (74-106); Potassium 4.3 mmol/L (3.5-5.1); Protein, Total 6.2 g/dL (6.4-8.2); Sodium Level 141 mmol/L (136-145)
[2022-04-24 08:23] VITALS: BP 104/38; BP 143/49; PULSE 53; PULSE 54; RESP 16; TEMP 36.6; TEMP 36.8; O2SAT 97; O2SAT 98
[2022-04-24] MEDS: Ascorbic Acid 500 MG Tablet PO (08:37)
[2022-04-24 08:41] LABS: Bedside Glucose 90 mg/dL (74-106)
--- NOTE | 2022-04-24 09:39 | CASEMGMT ---
Addendum entered by Jacki Sanford 04/24/22 10:08: Social Work SW did also speak w/admissions today, confirmed pt can return when ready. CHRISSIE Garcia Addendum entered by Jacki Sanford 04/24/22 10:00: SW sent updates via [facility] to [facility]. CHRISSIE Garcia Original Note: Social Work As per FATOU yesterday, [facility] called community relations director and said pt can return to [facility] today. called admissions person, message left. SW spoke w/pt, she is agreeable to return at discharge, declined list of SNFs in the area. Green sheet will be placed on chart. CHRISSIE Garcia
[2022-04-24] MEDS: Iron Polysaccharide Complex 150 MG CAPSULE PO (10:38)
[2022-04-24] MEDS: Furosemide 20 MG Tablet PO (10:39)
[2022-04-24] MEDS: Midodrine HCl 5 MG Tablet PO (10:39)
[2022-04-24] MEDS: Enoxaparin 40 MG/0.4 ML Syringe SC (10:41)
--- NOTE | 2022-04-24 11:02 | HP.PCM_ITS ---
HPI - General General Date of Admission: 04/23/22 HPI Narrative FANG HERNDON, is a 87 F who presents after a left hardware removal with wound debridement and graft application. Patient denies any constitutional symptoms. Pain is well controlled at [facility] today. Patient voiding urine. Patient passing gas. No other complaints. [facility] Medical History Carotid artery occlusion Cerebral infarct COPD (chronic obstructive pulmonary disease) Dementia Depression Diabetes Former smoker Gastric reflux GERD (gastroesophageal reflux disease) Hearing loss History of heart attack History of renal disease Hyperlipemia Hypertension Kidney disease Normocytic anemia Obesity Osteomyelitis Osteomyelitis Pressure ulcer Thyroid disease UTI (urinary tract infection) Weakness Wound of left ankle Home Medications clopidogrel 75 mg tablet 75 mg PO DAILY 08/22/21 [History Last Taken 02/23/22] atorvastatin 20 mg tablet 20 mg PO QHS Cholesterol 10/24/21 [History Last Taken 02/22/22] pantoprazole 40 mg tablet,delayed release 40 mg PO QHS GERD 10/24/21 [History Last Taken 02/22/22] acetaminophen 500 mg tablet 1,000 mg PO Q6H PRN PRN Pain Score 1-3 #0 tabs 11/12/21 [Rx Last Taken 02/20/22] ascorbic acid (vitamin C) 500 mg tablet (Vitamin C) 500 mg PO DAILY 12/08/21 [History Last Taken 02/23/22] nystatin 100,000 unit/gram topical powder (Nyamyc) 1 applic topical TID 12/08/21 [History Last Taken 02/23/22] insulin glargine-yfgn 100 unit/mL (3 mL) subcutaneous pen 26 unit subcut QHS 01/13/22 [History Last Taken 02/22/22] insulin lispro 100 unit/mL subcutaneous pen See Protocol subcut ACHS 01/13/22 [History Last Taken 02/23/22] sennosides 8.6 mg-docusate sodium 50 mg tablet (Stool Softener-Stimulant Laxative) 1 tab PO BID CONSTIPATION 01/13/22 [History Last Taken 02/23/22] tramadol 50 mg tablet 50 mg PO Q8H PRN PRN Pain Score 1-10 01/13/22 [History Last Taken 02/22/22] furosemide 20 mg tablet (Lasix) 20 mg PO DAILY 02/16/22 [History Last Taken 02/23/22] insulin lispro 100 unit/mL subcutaneous pen (Humalog KwikPen (U-100) Insulin) 10 unit subcut TIDAC DM 02/16/22 [History Last Taken 02/23/22] collagenase clostridium histo. 250 unit/gram topical ointment (Santyl) 1 applic topical QHS LEFT HEEL WOUND 02/23/22 [History Last Taken 02/22/22] levothyroxine 88 mcg tablet 88 mcg PO DAILY THYROID 02/23/22 [History Last Taken 02/23/22] multivitamin 1 tab PO DAILY HEALTH MAINTENANCE 02/23/22 [History Last Taken 02/23/22] polysaccharide iron complex 150 mg iron capsule (Ferrex) 150 mg PO DAILY ANEMIA 02/23/22 [History Last Taken 02/23/22] doxycycline hyclate 100 mg capsule 100 mg PO BID 04/06/22 [History Last Taken Unknown] dulaglutide 1.5 mg/0.5 mL subcutaneous pen injector (Trulicity) 3 mg subcut WE DM 04/06/22 [History Last Taken Unknown] losartan 50 mg tablet 25 mg PO DAILY BP 04/06/22 [History Last Taken Unknown] midodrine 5 mg tablet 5 mg PO BID 04/06/22 [History Last Taken Unknown] Lactobacillus rhamnosus GG 10 billion cell capsule (Culturelle) 1 cap PO DAILY 04/23/22 [History Last Taken Unknown] bisacodyl 10 mg rectal suppository 10 mg TN DAILY PRN Constipation 04/23/22 [History Last Taken Unknown] guaifenesin 100 mg/5 mL oral liquid 200 mg PO Q4H PRN PRN Cough 04/23/22 [History Last Taken Unknown] insulin lispro 100 unit/mL subcutaneous pen (Humalog KwikPen (U-100) Insulin) 5 unit subcut DAILY 04/23/22 [History Last Taken Unknown] mirtazapine 15 mg tablet 7.5 mg PO QHS 04/23/22 [History Last Taken Unknown] Allergy/AdvReac Type Severity Reaction Status Date / Time banana Allergy Hives Verified 04/23/22 12:06 peanut Allergy Hives Verified 04/23/22 12:06 Penicillins Allergy Other Verified 04/23/22 12:06 Sulfa (Sulfonamide Allergy Swelling Verified 12/02/22 12:06 Antibiotics) Surgical History Status post open reduction with internal fixation (ORIF) of fracture of ankle Social History household members: none housing: assisted living facility Smoking Status: Former smoker alcohol intake: never substance use type: does not use ROS Constitutional Constitutional: Denies change in weight, chills or headache(s) Eyes Eyes: Denies dry eyes, erythema or itchy eyes ENT HEENT: Denies bleeding gums, ear pain or lip swelling Cardiovascular Cardiovascular: Reports erythema on extremities; Denies abdominal edema or chest pain at rest Respiratory/Chest Respiratory/Chest: Denies change in phlegm color, dusky skin or inability to speak Gastrointestinal Gastrointestinal: Denies belching, constipation or fecal incontinence Genitourinary Genitourinary: Denies burning urination, difficulty with ejaculations or movement Musculoskeletal Musculoskeletal: Reports numbness; Denies neck pain or radiating pain into limb Integumentary Integumentary: Reports skin pain and skin ulcer; Denies jaundice Vital Signs Vital Signs Vital Signs: 04/23/22 12:07 04/23/22 12:07 04/23/22 14:34 Temperature 97.5 F L 98.2 F Temperature Source Temporal Temporal Pulse Rate 56 L 78 Respiratory Rate 18 18 Respiratory Effort Respiratory Depth Respiratory Pattern Normal Normal Blood Pressure 114/53 L 115/42 L Blood Pressure Mean 73 66 Blood Pressure Source Monitor Monitor Blood Pressure Position Semi-Fowlers Semi-Fowlers Blood Pressure Location Left Arm Left Forearm Baseline BP 114/53 Pulse Ox 97 93 Oxygen Delivery Method Room Air Room Air Oxygen Flow Rate (L/min) 04/23/22 14:45 04/23/22 15:00 04/23/22 15:15 Temperature Temperature Source Pulse Rate 80 75 78 Respiratory Rate 18 16 16 Respiratory Effort Respiratory Depth Respiratory Pattern Blood Pressure 121/49 H 113/49 L 100/46 L Blood Pressure Mean 73 70 64 Blood Pressure Source Monitor Monitor Monitor Blood Pressure Position Semi-Fowlers Semi-Fowlers Supine Blood Pressure Location Left Forearm Left Forearm Left Forearm Baseline BP 114/53 114/53 114/53 Pulse Ox 96 93 100 Oxygen Delivery Method Nasal Cannula Nasal Cannula Nasal Cannula Oxygen Flow Rate (L/min) 3 3 3 04/23/22 15:30 04/23/22 15:45 04/23/22 16:07 Temperature 99.5 F H Temperature Source Temporal Pulse Rate 75 81 84 Respiratory Rate 16 16 16 Respiratory Effort Respiratory Depth Respiratory Pattern Blood Pressure 96/39 L 98/41 L 109/40 L Blood Pressure Mean 58 60 63 Blood Pressure Source Monitor Monitor Monitor Blood Pressure Position Semi-Fowlers Supine Semi-Fowlers Blood Pressure Location Left Forearm Left Forearm Left Forearm Baseline BP 114/53 114/53 114/53 Pulse Ox 99 99 98 Oxygen Delivery Method Nasal Cannula Nasal Cannula Nasal Cannula Oxygen Flow Rate (L/min) 3 3 2 04/23/22 16:36 04/23/22 17:00 04/23/22 17:03 Temperature 97.5 F L 97.5 F L Temperature Source Oral Oral Pulse Rate 72 72 Respiratory Rate 18 18 Respiratory Effort Normal Non-Labored Respiratory Depth Normal Respiratory Pattern Normal Blood Pressure 99/42 L 99/42 L Blood Pressure Mean 61 61 Blood Pressure Source Monitor Blood Pressure Position Semi-Fowlers Blood Pressure Location Right Arm Baseline BP Pulse Ox 96 96 Oxygen Delivery Method Nasal Cannula Nasal Cannula Nasal Cannula Oxygen Flow Rate (L/min) 2 2 2 04/23/22 18:13 04/23/22 22:55 04/23/22 22:55 Temperature 98 F 97.7 F L 97.7 F L Temperature Source Oral Oral Oral Pulse Rate 67 75 75 Respiratory Rate 18 18 18 Respiratory Effort Respiratory Depth Respiratory Pattern Blood Pressure 140/50 H 128/35 H 128/35 H Blood Pressure Mean 80 66 66 Blood Pressure Source Monitor Monitor Blood Pressure Position Semi-Fowlers Semi-Fowlers Blood Pressure Location Left Arm Left Arm Baseline BP Pulse Ox 100 95 95 Oxygen Delivery Method Room Air Room Air Room Air Oxygen Flow Rate (L/min) 2 04/23/22 23:00 04/24/22 04:32 04/24/22 04:36 Temperature 97.9 F 97.9 F Temperature Source Oral Oral Pulse Rate 64 64 Respiratory Rate 18 18 Respiratory Effort Normal Non-Labored Respiratory Depth Respiratory Pattern Blood Pressure 117/58 L 117/58 L Blood Pressure Mean 77 77 Blood Pressure Source Monitor Blood Pressure Position Semi-Fowlers Blood Pressure Location Left Arm Baseline BP Pulse Ox 95 95 Oxygen Delivery Method Room Air Room Air Room Air Oxygen Flow Rate (L/min) 2 04/24/22 07:31 04/24/22 08:23 04/24/22 08:32 Temperature 98.3 F Temperature Source Oral Pulse Rate 53 L Respiratory Rate 16 Respiratory Effort Normal Non-Labored Respiratory Depth Normal Respiratory Pattern Normal Blood Pressure 104/38 L Blood Pressure Mean 60 Blood Pressure Source Monitor Blood Pressure Position Semi-Fowlers Blood Pressure Location Left Arm Baseline BP Pulse Ox 95 97 Oxygen Delivery Method Room Air Room Air Room Air Oxygen Flow Rate (L/min) Weight Weight: 74 kg Body Mass Index (BMI) 29.8 Physical Exam Narrative Patient AAOx3 today. Patient nonweightbearing to left lower extremity. Neurovascular status unchanged from previous visit. Large posterior splint noted to left foot and ankle this was left intact. Patient able to actively move digits no pain with calf squeeze or palpation popliteal fossa. No strikethrough drainage noted to the dressing. Results Lab / Micro Data Result Diagrams: 04/24/22 06:30 04/24/22 06:30 Labs: Laboratory Results - last 24 hr 04/23/22 12:16: POC Glucose 146 H 04/23/22 15:54: POC Glucose 141 H 04/23/22 16:38: WBC 8.5, RBC 3.79 L, Hgb 10.5 L, Hct 33.5 L, MCV 88.4, MCH 27.7, MCHC 31.3 L, RDW Std Deviation 45.4 H, RDW Coeff of Suzy 14.1, Plt Count 258, MPV 11.6, Immature Gran % (Auto) 0.200, Neut % (Auto) 65.7, Lymph % (Auto) 25.4, [place] % (Auto) 7.6, Eos % (Auto) 0.9, Baso % (Auto) 0.2, Absolute Neuts (auto) 5.6, Absolute Lymphs (auto) 2.16, Nucleated RBC % 0 04/23/22 16:38: Sodium 142, Potassium 4.2, Chloride 109 H, Carbon Dioxide 29.0, Anion Gap 4 L, BUN 33 H, Creatinine 1.71 H, Estim Creat Clear Calc 19.02, Est GFR (MDRD) Af Amer 37 L, Est GFR (MDRD) Non-Af 30 L, BUN/Creatinine Ratio 19.3, Glucose 149 H, Calcium 9.6, Total Bilirubin 0.30, AST 10 L, ALT 14, Alkaline Phosphatase 64, Total Protein 6.3 L, Albumin 2.7 L, Globulin 3.6, Albumin/Globulin Ratio 0.8 L 04/23/22 23:00: POC Glucose 176 H 04/24/22 06:30: WBC 8.9, RBC 3.59 L, Hgb 10.1 L, Hct 32.4 L, MCV 90.3, MCH 28.1, MCHC 31.2 L, RDW Std Deviation 46.4 H, RDW Coeff of Suzy 14.1, Plt Count 214, MPV 11.7, Immature Gran % (Auto) 0.300, Neut % (Auto) 49.4, Lymph % (Auto) 37.8, [place] % (Auto) 10.2 H, Eos % (Auto) 2.1, Baso % (Auto) 0.2, Absolute Neuts (auto) 4.4, Absolute Lymphs (auto) 3.38, Nucleated RBC % 0 04/24/22 06:30: Sodium 141, Potassium 4.3, Chloride 108 H, Carbon Dioxide 28.0, Anion Gap 5, BUN 29 H, Creatinine 1.60 H, Estim Creat Clear Calc 20.33, Est GFR (MDRD) Af Amer 39 L, Est GFR (MDRD) Non-Af 33 L, BUN/Creatinine Ratio 18.1, Glucose 83, Calcium 9.4, Total Bilirubin 0.40, AST 14 L, ALT 14, Alkaline Phosphatase 63, Total Protein 6.2 L, Albumin 2.6 L, Globulin 3.6, Albumin/Globulin Ratio 0.7 L 04/24/22 08:21: POC Glucose 90 Micro: Microbiology 04/23/22 13:54 Tissue - Ankle Wound Culture - Preliminary No growth-Final to follow 04/23/22 13:48 Tissue - Ankle Wound Culture - Preliminary Gram positive organism Radiology Impression Ankle X-Ray 04/23/22 13:30 IMPRESSION: Intraoperative images obtained for hardware localization. 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 Due to chronic wound and exposed hardware to left lateral ankle patient has been receiving p.o. doxycycline per infectious disease recommendation. Yesterday on 04/23/2022 removed any potentially infected hardware flush the site with copious amounts normal sterile saline pre and post lavage cultures and debrided the wounds to the plantar heel and left ankle closed the incision and applied an overlying skin substitute graft to assist wound healing. Today patient has a large posterior splint with sufficient heel cushioning to offload ulcer sites and stabilize the surgical site. She will keep this intact until follow-up in approximately 1 week. Patient will maintain nonweightbearing to the left lower extremity. Patient is taking clopidogrel we will continue this for DVT prophylaxis and observe closely for signs of DVT. Patient should take Tylenol for pain as her symptoms are minimal at this time. She should continue to elevate the left lower extremity, but avoid ice to left lower extremity Patient will discharge back to [facility]. Patient had some hypotension today we will defer. Will see patient in 1 week for redressing. 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
[2022-04-24 12:05] LABS: Bedside Glucose 176 mg/dL (74-106)
--- NOTE | 2022-04-24 13:22 | PN.HOSP_ITS ---
Subjective Subjective Follow-up for the infected wound with hardware Objective Data Objective Data Vital Signs: Vital Signs Temp Pulse Resp BP Pulse Ox O2 Del Method O2 Flow Rate 98.3 F 53 L 16 104/38 L 97 Room Air 2 04/24/22 08:23 04/24/22 08:23 04/24/22 08:23 04/24/22 08:23 04/24/22 08:23 04/24/22 08:32 04/24/22 04:36 Oxygen Flow Rate (L/min) 2 Oxygen Delivery Method Room Air Weight: 163 lb 2.273 oz Body Mass Index (BMI) 29.8 Intake & Output: Intake and Output for Last 24 Hours 04/22/22 04/23/22 04/24/22 23:59 23:59 23:59 Intake Total 1125.25 / 1125.25 1146.67 / 1146.67 Output Total 575 / 575 Balance 1125.25 / 950.25 571.67 / 571.67 Lab / Micro Data Result Diagrams: 04/24/22 06:30 04/24/22 06:30 Labs: Laboratory Results - last 24 hr 04/23/22 12:16: POC Glucose 146 H 04/23/22 15:54: POC Glucose 141 H 04/23/22 16:38: WBC 8.5, RBC 3.79 L, Hgb 10.5 L, Hct 33.5 L, MCV 88.4, MCH 27.7, MCHC 31.3 L, RDW Std Deviation 45.4 H, RDW Coeff of Suzy 14.1, Plt Count 258, MPV 11.6, Immature Gran % (Auto) 0.200, Neut % (Auto) 65.7, Lymph % (Auto) 25.4, [place] % (Auto) 7.6, Eos % (Auto) 0.9, Baso % (Auto) 0.2, Absolute Neuts (auto) 5.6, Absolute Lymphs (auto) 2.16, Nucleated RBC % 0 04/23/22 16:38: Sodium 142, Potassium 4.2, Chloride 109 H, Carbon Dioxide 29.0, Anion Gap 4 L, BUN 33 H, Creatinine 1.71 H, Estim Creat Clear Calc 19.02, Est GFR (MDRD) Af Amer 37 L, Est GFR (MDRD) Non-Af 30 L, BUN/Creatinine Ratio 19.3, Glucose 149 H, Calcium 9.6, Total Bilirubin 0.30, AST 10 L, ALT 14, Alkaline Phosphatase 64, Total Protein 6.3 L, Albumin 2.7 L, Globulin 3.6, Albumin/Globulin Ratio 0.8 L 04/23/22 23:00: POC Glucose 176 H 04/24/22 06:30: WBC 8.9, RBC 3.59 L, Hgb 10.1 L, Hct 32.4 L, MCV 90.3, MCH 28.1, MCHC 31.2 L, RDW Std Deviation 46.4 H, RDW Coeff of Suzy 14.1, Plt Count 214, MPV 11.7, Immature Gran % (Auto) 0.300, Neut % (Auto) 49.4, Lymph % (Auto) 37.8, [place] % (Auto) 10.2 H, Eos % (Auto) 2.1, Baso % (Auto) 0.2, Absolute Neuts (auto) 4.4, Absolute Lymphs (auto) 3.38, Nucleated RBC % 0 04/24/22 06:30: Sodium 141, Potassium 4.3, Chloride 108 H, Carbon Dioxide 28.0, Anion Gap 5, BUN 29 H, Creatinine 1.60 H, Estim Creat Clear Calc 20.33, Est GFR (MDRD) Af Amer 39 L, Est GFR (MDRD) Non-Af 33 L, BUN/Creatinine Ratio 18.1, Glucose 83, Calcium 9.4, Total Bilirubin 0.40, AST 14 L, ALT 14, Alkaline Phosphatase 63, Total Protein 6.2 L, Albumin 2.6 L, Globulin 3.6, Albumin/Globulin Ratio 0.7 L 04/24/22 08:21: POC Glucose 90 04/24/22 11:47: POC Glucose 176 H Micro: Microbiology 04/23/22 13:54 Tissue - Ankle Gram Stain - Final 04/23/22 13:54 Tissue - Ankle Wound Culture - Preliminary No growth-Final to follow 04/23/22 13:48 Tissue - Ankle Gram Stain - Final 04/23/22 13:48 Tissue - Ankle Wound Culture - Preliminary Gram positive organism Radiography Diagnostic Testing: Radiology Impression Ankle X-Ray 04/23/22 13:30 IMPRESSION: Intraoperative images obtained for hardware localization. Electronically Signed: Mendy Hernandez MD at 17:00 EST , Physical Exam Narrative Physical exam Patient denies any prior cardiac or lung disease. Has diabetes mellitus type 2. Pain is controlled. General: Alert, Oriented x3, Cooperative HEENT: Atraumatic, PERRLA, EOMI, Normocephalic Oral: No Gingival or Mucosal Lesions/ Ulcerations Neck: Supple, No JVD, Negative Carotid Bruits Lungs: Air entry equal in bilateral lung bases. No crepitation/rhonchi Cardiovascular: Regular rate, Regular Rhythm, Normal S1, Normal S2, No murmurs Abdomen: Bowel Sounds Present, Soft, Non Tender, Non-Distended : No renal angle tenderness. No suprapubic tenderness. Extremities: No edema, Capillary Refill Less than 3 Seconds Skin: Left lower leg is dressing with Marlon wrap bandage. Left posterior splint. Status post left leg hardware removal with wound debridement and graft application. Musculoskeletal: No Tenderness to Palpation of Joints or Extremities Neurological: Cranial nerves II-XII grossly intact, DTR 2+/4 and Symmetrical, Neuro grossly intact Psych/Mental Status: Normal Affect, Appropriate. 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 Francisco. #1. Infected left ankle wound with retained hardware with concurrent pressure ulceration of the left plantar heel, full-thickness: Failed conservative outpatient interventions, was admitted by Dr. Francisco after elective surgery. Patient had painful retained hardware left ankle, infected left ankle wound with pressure ulceration full-thickness. On 04/23/2022, left ankle hardware removal, left plantar heel wound excisional debridement of surgical graft and application of skin substitute left plantar heel was performed. Patient not on antibiotics. Prelim wound culture shows rare gram-positive organism. ID Consult. Patient having no fever or leukocytosis.Patient started on doxycycline 100 mg p.o. twice daily which she was taking before #2. Chronic Kidney Disease Stage IIIb, : Admission BUN/Cr 33/1.71, baseline renal function appears primarily more recently 1.3-1.5. Today 1.6. On baseline #3. Chronic anemia/iron deficiency anemia: Admission hemoglobin 10.8, baseline noted prior 10-11 range, stable, continue iron supplementation. #4. Hypertension complicated by concurrent orthostasis: Continue home regimen including Lasix, losartan, PRN hydralazine. Also on chronic twice daily midodrine which will also be continued. Maintained on fall precautions. #5. Hyperlipidemia: Continue home statin regimen. #6. History CVA with carotid disease: Recommend resumption of Plavix once allowed per orthopedic surgery, continue statin, hypertensive regimen, diabetic regimen with adjustments as noted. #7. Diabetes mellitus type II: Hold oral home regimen, continue home insulin regimen, ADA diet, accu checks w/ ISS. #8. Anxiety and depression: We will continue patient home mirtazapine regimen. #9. Chronic COPD: Not on chronic regimen per review of current list, will have PRN albuterol, HOB, IS parameters. #10. Hypothyroidism: We will continue patient on levothyroxine regimen #11. Obesity: Weight loss and lifestyle changes encouraged. #12. GERD: We will continue patient on PPI. #13. DVT prophylaxis: SCD on enoxaparin 30 mg daily adjusted to creatinine clearance Patient is DNR CC. Charges/Coding Visit Charges OBSV E&M: 95123 Subsequent observation care L2
[2022-04-24 15:02] VITALS: BP 143/49; PULSE 54; RESP 16; TEMP 36.6; O2SAT 98
--- NOTE | 2022-04-24 15:25 | NURSING ---
REPORT CALLED TO [facility]
== END 2022-04-24 15:35 | disposition skilled nursing facility (03) ==
LOC: MS3 04-24 08:30 → SDC 04-26 11:17
PROVIDERS: Family Medicine; Admitting Provider Podiatrist; PCP Internal Medicine; Referring Provider Podiatrist; Visit Provider Podiatrist
PROC: (CPT 20680; principal; 2022-04-23 12:45)
DX: T84.7XXA Infection and inflammatory reaction due to other internal orthopedic prosthetic devices, implants and grafts, initial encounter (principal); L89.524 Pressure ulcer of left ankle, stage 4; E11.51 Type 2 diabetes mellitus with diabetic peripheral angiopathy without gangrene; T84.84XA Pain due to internal orthopedic prosthetic devices, implants and grafts, initial encounter; F03.90 Unspecified dementia, unspecified severity, without behavioral disturbance, psychotic disturbance, mood disturbance, and anxiety; J44.9 Chronic obstructive pulmonary disease, unspecified; E11.22 Type 2 diabetes mellitus with diabetic chronic kidney disease; Z79.4 Long term (current) use of insulin; N18.32 Chronic kidney disease, stage 3b; Z87.891 Personal history of nicotine dependence; E78.5 Hyperlipidemia, unspecified; D50.9 Iron deficiency anemia, unspecified; Z79.02 Long term (current) use of antithrombotics/antiplatelets; I12.9 Hypertensive chronic kidney disease with stage 1 through stage 4 chronic kidney disease, or unspecified chronic kidney disease; Z79.899 Other long term (current) drug therapy; I25.10 Atherosclerotic heart disease of native coronary artery without angina pectoris; K21.9 Gastro-esophageal reflux disease without esophagitis; E03.9 Hypothyroidism, unspecified
CPT/HCPCS: 20680; 15002; 15271; 00400; 36415; 73600; 76000; 80053; 82962; 85025; 87070; 87075; 87077; 87205; 87426; 96360; 96361; 96372; 97162; 97165; 99218; J7030; J7120; A4216; G0378; J2405

== ENCOUNTER → 2022-04-26 | Outpatient (REF) | payer MEDICARE, MEDICAID, SELFPAY ==
[2022-04-26 08:39] LABS: Hematocrit 32.9 % (37-47); Hemoglobin 10.3 g/dL (12.0-15.0); Mean Corp Hgb Conc 31.3 g/dL (32-36); Mean Corpuscular Hgb 27.5 pg (27.0-32.0); Mean Corpuscular Volume 87.7 fL (81-99); Mean Platelet Vol. 12.1 fl (6.2-12.0); Platelet Count 251 K/mm3 (150-450); RBC Distribution Width CV 14.1 % (11.6-14.6); RBC Distribution Width SD 44.7 fl (35.1-43.9); Red Blood Count 3.75 M/mm3 (4.2-5.4); White Blood Count 7.4 K/mm3 (4.4-11.0)
[2022-04-26 08:59] LABS: Anion Gap 4 (5-15); BUN 25 mg/dL (7-18); BUN/Creat Ratio 19.2 RATIO (10-20); Calcium,Total 9.5 mg/dL (8.5-10.1); Chloride 107 mmol/L (98-107); EST Glomerular Filtration Rate 41 mL/min (>60); Est Glom Filt Rate - Afr Amer 50 mL/min (>60); Glucose 89 mg/dL (74-106); Potassium 3.9 mmol/L (3.5-5.1); Sodium Level 142 mmol/L (136-145)
== END ==
LOC: OLS.SW 04:00
PROVIDERS: PCP Internal Medicine; Referring Provider Internal Medicine; Visit Provider Internal Medicine
DX: M86.172 Other acute osteomyelitis, left ankle and foot (principal)
CPT/HCPCS: 36415; 80048; 85027

== ENCOUNTER 2022-05-18 11:00 | Outpatient (RCR) | payer MEDICARE, MEDICAID, SELFPAY ==
[2022-04-22 00:13] VITALS: BP 98/40; PULSE 54; RESP 16; TEMP 36.1
[2022-04-27 10:04] VITALS: BP 97/48; PULSE 82; RESP 20; TEMP 36.5
--- NOTE | 2022-04-27 10:28 | PN.PCM_ITS ---
History of Present Illness Date of Service: 04/27/22 Progress of Wound: 87-year-old female presents to clinic 4 days status post left ankle hardware removal with wound debridement and application of epi cord graft. Patient denies constitutional symptoms. Pain is well controlled. No signs of DVT. No other complaints. Objective Data Objective Data Vital Signs: Vital Signs Temp Pulse Resp BP 97.7 F L 82 20 H 97/48 L 04/27/22 10:04 04/27/22 10:04 04/27/22 10:04 04/27/22 10:04 Physical Exam Narrative Neurovascular status unchanged at this time. Well approximated skin incision the medial ankle with intact hansa. Well approximated lateral ankle incision with distal wound with noted intact stapled epi cord graft. Healed plantar heel wound. No signs of infection. Some breakdown along the distal incision 3 hansa were removed due to this issue. No pain with calf squeeze. Debridement Note Debridement Note Post-Debridement Measurements and Additional Note: Post-Debridement Measurements/Treatment - Nurse 1 - General Ulcer Assessment Start: 04/27/22 10:04 Freq: Status: Active Protocol: TASNEEM Activity Type Activity Date Activity User E-sign Co-sign Detail Recorded Client Recorded Date Recorded By Document 04/27/22 10:04 [id number] 04/27/22 10:13 DL 04/27/22 10:04 - Today's Visit Information Type of service Follow-up Visit (Physician/[employer] ) Arrival Mode Wheelchair Transfer Assistance Manual Transfer Assist (Other) x2 Patient Identification Verified (Name & Yes ) Patient Requires Transmission-Based No Precautions Finger Stick Blood Sugar(mg/dl) (if pt unsure indicated): Blood Sugar Stated by Patient Vital Signs Temperature (97.8 F-99.1 F) 97.7 F L Temperature Source Temporal Pulse Rate (60-100) 82 Pulse Location Monitor Respiratory Rate (12-18) 20 H Respiratory rate source Observation Blood Pressure (90/60-120/80) 97/48 L Blood Pressure Mean (mm Hg) 64 Source Monitor Comment Post op, hansa intact History Since Last Visit- (Skip if this is Patient's initial visit) Have you changed medications since your No last visit? Any new allergies or adverse reactions No Had a fall/change in ADL's that may No increase risk of falls Signs or symptoms of abuse and/or No neglect since last visit Have you been in the hospital since your Yes last visit? Has dressing in place as prescribed Yes Has compression in place as prescribed Yes Has offloadiing in place as prescribed Yes Experienced any changes in pain level or No management Left Footwear Removable Cast Walker/Walking Boot Pain Scale: 0-10 Numeric Is Patient Pain Free? Yes WC - Nurse 1 - General Ulcer Measurement Start: 04/27/22 10:04 Freq: Status: Active Protocol: Activity Type Activity Date Activity User E-sign Co-sign Detail Recorded Client Recorded Date Recorded By Document 04/27/22 10:04 DL [id number] 04/27/22 10:13 DL 04/27/22 10:04 Wound Center Nurse 1 #3 L Ant ankle/ post op -Current Size (cm) - Length 0.1 -Current Size (cm) - Width 0.1 -Current Size (cm) - Depth 0.1 -Total Square Cm 0.01 -Photo Taken Yes -Exudate Amt None Present -Wound Margin Flat & Intact -Granulation Amt Large (67-100%) -Granulation Quality [place] -Necrosis Amt None Present (0 %) -Structure Exposed Fat Layer Exposed -Texture ([place]-wound Skin Appearance) Localized Edema ,Scarring -Moisture ([place]-wound Skin Appearance) No Abnormality -Color ([place]-wound Skin Appearance) No Abnormality -Temperature ([place]-wound Skin No Abnormality Appearance) (Pt Warm) -Tenderness on Palpation ([place]-wound No Skin Appearance) -Ulcer Cleansing Soap and Water -Wound Comment(s) Post op incision, hansa intact #2- L HEEL - post op -Current Size (cm) - Length 0.1 -Current Size (cm) - Width 0.1 -Current Size (cm) - Depth 0.1 -Total Square Cm 0.01 -Photo Taken Yes -Exudate Amt Small -Exudate Type Serosanguineous -Wound Margin Distinct, Outline Attached -Granulation Amt Large (67-100%) -Granulation Quality [place] -Necrosis Amt None Present (0 %) -Structure Exposed N/A -Texture ([place]-wound Skin Appearance) Localized Edema ,Scarring -Moisture ([place]-wound Skin Appearance) No Abnormality -Color ([place]-wound Skin Appearance) No Abnormality -Temperature ([place]-wound Skin No Abnormality Appearance) (Pt Warm) -Tenderness on Palpation ([place]-wound No Skin Appearance) -Ulcer Cleansing Soap and Water -Foul Odor after Cleansing No #1 Left lateral ankle- post op -Current Size (cm) - Length 0.1 -Current Size (cm) - Width 0.1 -Current Size (cm) - Depth 0.1 -Total Square Cm 0.01 -Photo Taken Yes -Exudate Amt None Present -Wound Margin Flat & Intact -Granulation Amt Large (67-100%) -Granulation Quality [place] -Necrosis Amt None Present (0 %) -Structure Exposed N/A -Texture ([place]-wound Skin Appearance) Localized Edema ,Scarring -Moisture ([place]-wound Skin Appearance) No Abnormality -Color ([place]-wound Skin Appearance) No Abnormality -Temperature ([place]wound Skin No Abnormality Appearance) (Pt Warm) -Tenderness on Palpation ([place]-wound No Skin Appearance) -Ulcer Cleansing Soap and Water -Foul Odor after Cleansing No -Wound Comment(s) hansa intact Assessment/Plan Assessment/Plan (1) 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 Patient 4 days postop. Cultures growing corynebacterium, patient on long-term doxycycline. Radiographs reordered today. Incision medial ankle healing well. Incision lateral ankle demonstrates some breakdown distally. Plantar heel wound healed at this time. Both incisions dressed with Betadine paint and Adaptic as well as a dry sterile dressing without compression. Patient will remain nonweightbearing to left lower extremity. Patient taking clopidogrel for DVT prophylaxis. We will observe closely for signs of DVT. Patient will follow up in 1 week we will consider staple removal at that time. (2) Peripheral vascular disease, unspecified: CODE(S): I73.9 - Peripheral vascular disease, unspecified (3) Osteomyelitis of left ankle: CODE(S): M86.9 - Osteomyelitis, unspecified
[2022-05-04 09:40] VITALS: BP 92/45; PULSE 53; RESP 16; TEMP 35.5
--- NOTE | 2022-05-04 10:09 | PCM.WC.PN ---
History of Present Illness Date of Service: 05/04/22 Progress of Wound: 87-year-old female presents to clinic 4 days status post left ankle hardware removal with wound debridement and application of epi cord graft. Patient denies constitutional symptoms. Pain is well controlled. No signs of DVT. No other complaints. Objective Data Objective Data Vital Signs: Vital Signs Temp Pulse Resp BP O2 Del Method 96 F L 53 L 16 92/45 L Room Air 05/04/22 09:40 05/04/22 09:40 05/04/22 09:40 05/04/22 09:40 05/04/22 09:40 Oxygen Delivery Method Room Air Physical Exam Narrative Neurovascular status unchanged at this time. Well approximated skin incision the medial ankle with intact hansa. Well approximated lateral ankle incision with distal wound with noted intact stapled epi cord graft. Healed plantar heel wound. No signs of infection. Some breakdown along the distal incision 3 hansa were removed due to this issue. No pain with calf squeeze. Debridement Note Debridement Note Post-Debridement Measurements and Additional Note: Post-Debridement Measurements/Treatment - Nurse 1 - General Ulcer Assessment Start: 04/27/22 10:04 Freq: Status: Active Protocol: LEXY.LOWEXT Activity Type Activity Date Activity User E-sign Co-sign Detail Recorded Client Recorded Date Recorded By Document 04/27/22 10:04 [id number] 04/27/22 10:13 DL Document 05/04/22 09:40 [facility] [id number] 05/04/22 09:52 [facility] 04/27/22 05/04/22 10:04 09:40 - Today's Visit Information Type of service Follow-up Visit Follow-up Visit (Physician/INVESTMENT SALES ASSISTANT (Physician/INVESTMENT SALES ASSISTANT ) ) Arrival Mode Wheelchair Wheelchair Transfer Assistance Manual Other Transfer Assist (Other) x2 1 Patient Identification Verified (Name & Yes Yes ) Patient Requires Transmission-Based No No Precautions Finger Stick Blood Sugar(mg/dl) (if pt unsure indicated): Blood Sugar Stated by Patient Vital Signs Temperature (97.8 F-99.1 F) 97.7 F L 96 F L Temperature Source Temporal Temporal Pulse Rate (60-100) 82 53 L Pulse Location Monitor Monitor Respiratory Rate (12-18) 20 H 16 Respiratory rate source Observation Observation Oxygen Delivery Method Room Air Blood Pressure (90/60-120/80) 97/48 L 92/45 L Blood Pressure Mean (mm Hg) 64 60 Source Monitor Monitor Position Sitting Blood Pressure Location Left Forearm Comment Post op, PT BP OFTEN LOW hansa intact @ VISITS, WILL UPDATE MD AND CM History Since Last Visit- (Skip if this is Patient's initial visit) Have you changed medications since your No No last visit? Any new allergies or adverse reactions No No Had a fall/change in ADL's that may No No increase risk of falls Signs or symptoms of abuse and/or No No neglect since last visit Have you been in the hospital since your Yes No last visit? Has dressing in place as prescribed Yes Yes Has compression in place as prescribed Yes N/A Has offloadiing in place as prescribed Yes Yes Experienced any changes in pain level or No management Left Footwear Removable Cast Other Footwear Walker/Walking (Comment) Boot Right Footwear Regular Shoe Other Footwear DRSG TO LLE Pain Scale: 0-10 Numeric Is Patient Pain Free? Yes Yes WC - Nurse 1 - General Ulcer Measurement Start: 04/27/22 10:04 Freq: Status: Active Protocol: Activity Type Activity Date Activity User E-sign Co-sign Detail Recorded Client Recorded Date Recorded By Document 04/27/22 10:04 DL [id number] 04/27/22 10:13 DL Document 05/04/22 09:40 [facility] [id number] 05/04/22 09:52 [facility] 04/27/22 05/04/22 10:04 09:40 Wound Center Nurse 1 #2- L HEEL - post op -Current Size (cm) - Length 0.1 -Current Size (cm) - Width 0.1 -Current Size (cm) - Depth 0.1 -Total Square Cm 0.01 -Photo Taken Yes -Exudate Amt Small -Exudate Type Serosanguineous -Wound Margin Distinct, Outline Attached -Granulation Amt Large (67-100%) -Granulation Quality [place] -Necrosis Amt None Present (0 %) -Structure Exposed N/A -Texture ([place]-wound Skin Appearance) Localized Edema ,Scarring -Moisture ([place]-wound Skin Appearance) No Abnormality -Color ([place]-wound Skin Appearance) No Abnormality -Temperature ([place]-wound Skin No Abnormality Appearance) (Pt Warm) -Tenderness on Palpation ([place]-wound No Skin Appearance) -Ulcer Cleansing Soap and Water -Foul Odor after Cleansing No #3 L Ant ankle/ post op -Combined with other wound No -Current Size (cm) - Length 0.1 0.1 -Current Size (cm) - Width 0.1 0.1 -Current Size (cm) - Depth 0.1 0.1 -Total Square Cm 0.01 0.01 -Date of Last Picture (Recall this 05/04/22 field) -Photo Taken Yes Yes -Exudate Amt None Present Small -Exudate Type Sanguineous -Wound Margin Flat & Intact -Granulation Amt Large (67-100%) -Granulation Quality [place] -Necrosis Amt None Present (0 %) -Structure Exposed Fat Layer Exposed -Texture ([place]-wound Skin Appearance) Localized Edema Assessed ,Scarring -Moisture ([place]-wound Skin Appearance) No Abnormality Assessed -Color ([place]-wound Skin Appearance) No Abnormality Assessed -Temperature ([place]-wound Skin No Abnormality Appearance) (Pt Warm) -Tenderness on Palpation ([place]-wound No Skin Appearance) -Ulcer Cleansing Soap and Water -Wound Comment(s) Post op HANSA PRESENT incision, hansa intact #1 Left lateral ankle- post op -Combined with other wound No -Current Size (cm) - Length 0.1 0.1 -Current Size (cm) - Width 0.1 0.1 -Current Size (cm) - Depth 0.1 0.1 -Total Square Cm 0.01 0.01 -Date of Last Picture (Recall this 05/04/22 field) -Photo Taken Yes Yes -Tunneling No -Undermining/Tunneling No -Circular Undermining No -Exudate Amt None Present Small -Exudate Type Serosanguineous -Wound Margin Flat & Intact -Granulation Amt Large (67-100%) -Granulation Quality [place] -Necrosis Amt None Present (0 %) -Structure Exposed N/A -Texture ([place]-wound Skin Appearance) Localized Edema Assessed ,Scarring -Moisture ([place]-wound Skin Appearance) No Abnormality Assessed -Color ([place]-wound Skin Appearance) No Abnormality Assessed -Temperature ([place]-wound Skin No Abnormality No Abnormality Appearance) (Pt Warm) (Pt Warm) -Tenderness on Palpation ([place]-wound No Yes Skin Appearance) -Ulcer Cleansing Soap and Water Soap and Water -Foul Odor after Cleansing No No -Wound Comment(s) hansa intact HANSA PRESENT WC - Nurse 2 - General Ulcer CM Notes Start: 04/27/22 10:04 Freq: Status: Active Protocol: Activity Type Activity Date Activity User E-sign Co-sign Detail Recorded Client Recorded Date Recorded By Document 04/27/22 10:20 WILLIAM [id number] 04/27/22 10:44 WILLIAM 04/27/22 10:20 Wound Center Nurse 2 #2- L HEEL - post op -Correct Patient No -Correct Side, Site, Position No -Correct Procedure No -Procedure Performed No -Post Debridement (cm) - Length 0 -Post Debridement (cm) - Width 0 -Post Debridement (cm) - Depth 0 -Total Square (Post) (cm) 0 -Area of Debridement (cm) - Length 0 -Area of Debridement (cm) - Width 0 -Total Square (Area) (cm) 0 -Wound/Ulcer Outcome Healed- Epithelialized #3 L Ant ankle/ post op -Correct Patient No -Correct Side, Site, Position No -Correct Procedure No -Procedure Performed No -Wound/Ulcer Outcome Not Healed #1 Left lateral ankle- post op -Correct Patient No -Correct Side, Site, Position No -Correct Procedure No -Procedure Performed No -Wound/Ulcer Outcome Not Healed Pain Scale: 0-10 Numeric Is Patient Pain Free? 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 Patient 11 days post op. incisions and wounds healing well. Radiographs within normal limits Both incisions dressed with Betadine paint and Adaptic as well as a dry sterile dressing without compression. Patient will remain nonweightbearing to left lower extremity. Patient taking clopidogrel for DVT prophylaxis. Duplex ultrasound ordered to rule out DVT. Patient will follow up in 1 week we will consider staple removal at that time. (2) Peripheral vascular disease, unspecified: CODE(S): I73.9 - Peripheral vascular disease, unspecified (3) Osteomyelitis of left ankle: CODE(S): M86.9 - Osteomyelitis, unspecified
[2022-05-18 10:41] VITALS: BP 112/52; PULSE 52; RESP 16; TEMP 35.7
--- NOTE | 2022-05-18 11:34 | PN.PCM_ITS ---
History of Present Illness Date of Service: 05/18/22 Progress of Wound: 87-year-old female presents to clinic 2-1/2 weeks status post left ankle hardware removal with wound debridement and application of epi cord graft. Patient denies constitutional symptoms. Pain is well controlled. No signs of DVT. No other complaints. Objective Data Objective Data Vital Signs: Vital Signs Temp Pulse Resp BP O2 Del Method 96.3 F L 52 L 16 112/52 L Room Air 05/18/22 10:41 05/18/22 10:41 05/18/22 10:41 05/18/22 10:41 05/18/22 10:41 Oxygen Delivery Method Room Air Physical Exam Narrative Neurovascular status unchanged. Upon staple removal medial incision healed upon staple removal on the lateral incision the proximal portion is completely healed with significant improvement upon removal of epi cord. At the distal aspect of the incisional site where there was a wound previously that exposed hardware underneath. At this time there is a healthy granular base with a small focal ulceration to the site which was debrided pre and postdebridement measurements document nursing notes no signs of infection. Debridement Note Debridement Note Post-Debridement Measurements and Additional Note: Post-Debridement Measurements/Treatment - Nurse 1 - General Ulcer Assessment Start: 04/27/22 10:04 Freq: Status: Active Protocol: TASNEEM Activity Type Activity Date Activity User E-sign Co-sign Detail Recorded Client Recorded Date Recorded By Document 04/27/22 10:04 [id number] 04/27/22 10:13 DL Document 05/04/22 09:40 [facility] [id number] 05/04/22 09:52 [facility] Document 05/18/22 10:41 DL [id number] 05/18/22 10:45 DL 04/27/22 05/04/22 05/18/22 10:04 09:40 10:41 - Today's Visit Information Type of service Follow-up Visit Follow-up Visit Follow-up Visit (Physician/SUPERVISOR TELLERS (Physician/SUPERVISOR TELLERS (Physician/SUPERVISOR TELLERS ) ) ) Arrival Mode Wheelchair Wheelchair Wheelchair Transfer Assistance Manual Other Other Transfer Assist (Other) x2 1 stand by Patient Identification Verified (Name & Yes Yes Yes ) Patient Requires Transmission-Based No No No Precautions Finger Stick Blood Sugar(mg/dl) (if pt unsure indicated): Blood Sugar Stated by Patient Vital Signs Temperature (97.8 F-99.1 F) 97.7 F L 96 F L 96.3 F L Temperature Source Temporal Temporal Temporal Pulse Rate (60-100) 82 53 L 52 L Pulse Location Monitor Monitor Monitor Respiratory Rate (12-18) 20 H 16 16 Respiratory rate source Observation Observation Observation Oxygen Delivery Method Room Air Room Air Blood Pressure (90/60-120/80) 97/48 L 92/45 L 112/52 L Blood Pressure Mean (mm Hg) 64 60 72 Source Monitor Monitor Monitor Position Sitting Sitting Blood Pressure Location Left Forearm Left Forearm Comment Post op, PT BP OFTEN LOW leonela intact @ VISITS, WILL UPDATE MD AND CM History Since Last Visit- (Skip if this is Patient's initial visit) Have you changed medications since your No No No last visit? Any new allergies or adverse reactions No No No Had a fall/change in ADL's that may No No No increase risk of falls Signs or symptoms of abuse and/or No No No neglect since last visit Have you been in the hospital since your Yes No No last visit? Has dressing in place as prescribed Yes Yes Yes Has compression in place as prescribed Yes N/A N/A Has offloadiing in place as prescribed Yes Yes Yes Experienced any changes in pain level or No No management Left Footwear Removable Cast Other Footwear Slipper Walker/Walking (Comment) Boot Right Footwear Regular Shoe Slipper Other Footwear DRSG TO LLE Pain Scale: 0-10 Numeric Is Patient Pain Free? Yes Yes Yes WC - Nurse 1 - General Ulcer Measurement Start: 04/27/22 10:04 Freq: Status: Active Protocol: Activity Type Activity Date Activity User E-sign Co-sign Detail Recorded Client Recorded Date Recorded By Document 04/27/22 10:04 DL [id number] 04/27/22 10:13 DL Document 05/04/22 09:40 BM [id number] 05/04/22 09:52 BMF Document 05/18/22 10:41 DL [id number] 05/18/22 10:45 DL 04/27/22 05/04/22 05/18/22 10:04 09:40 10:41 Wound Center Nurse 1 #3 L Ant ankle/ post op -Combined with other wound No No -Current Size (cm) - Length 0.1 0.1 0.1 -Current Size (cm) - Width 0.1 0.1 0.1 -Current Size (cm) - Depth 0.1 0.1 0.1 -Total Square Cm 0.01 0.01 0.01 -Date of Last Picture (Recall this 05/04/22 05/18/22 field) -Photo Taken Yes Yes Yes -Exudate Amt None Present Small None Present -Exudate Type Sanguineous -Wound Margin Flat & Intact -Granulation Amt Large (67-100%) -Granulation Quality [place] -Necrosis Amt None Present (0 %) -Structure Exposed Fat Layer Exposed -Texture ([place]-wound Skin Appearance) Localized Edema Assessed Assessed ,Scarring -Moisture ([place]-wound Skin Appearance) No Abnormality Assessed Assessed -Color ([place]-wound Skin Appearance) No Abnormality Assessed Assessed -Temperature ([place]wound Skin No Abnormality No Abnormality Appearance) (Pt Warm) (Pt Warm) -Tenderness on Palpation ([place]-wound No No Skin Appearance) -Ulcer Cleansing Soap and Water Soap and Water -Foul Odor after Cleansing No -Wound Comment(s) Post op LEONELA PRESENT leonela intact incision, leonela intact #2- L HEEL - post op -Current Size (cm) - Length 0.1 -Current Size (cm) - Width 0.1 -Current Size (cm) - Depth 0.1 -Total Square Cm 0.01 -Photo Taken Yes -Exudate Amt Small -Exudate Type Serosanguineous -Wound Margin Distinct, Outline Attached -Granulation Amt Large (67-100%) -Granulation Quality [place] -Necrosis Amt None Present (0 %) -Structure Exposed N/A -Texture ([place]-wound Skin Appearance) Localized Edema ,Scarring -Moisture ([place]-wound Skin Appearance) No Abnormality -Color ([place]-wound Skin Appearance) No Abnormality -Temperature ([place]-wound Skin No Abnormality Appearance) (Pt Warm) -Tenderness on Palpation ([place]-wound No Skin Appearance) -Ulcer Cleansing Soap and Water -Foul Odor after Cleansing No #1 Left lateral ankle- post op -Combined with other wound No No -Current Size (cm) - Length 0.1 0.1 0.1 -Current Size (cm) - Width 0.1 0.1 0.1 -Current Size (cm) - Depth 0.1 0.1 0.1 -Total Square Cm 0.01 0.01 0.01 -Date of Last Picture (Recall this 05/04/22 05/18/22 field) -Photo Taken Yes Yes Yes -Tunneling No -Undermining/Tunneling No -Circular Undermining No -Exudate Amt None Present Small None Present -Exudate Type Serosanguineous -Wound Margin Flat & Intact -Granulation Amt Large (67-100%) -Granulation Quality [place] -Necrosis Amt None Present (0 %) -Structure Exposed N/A -Texture ([place]-wound Skin Appearance) Localized Edema Assessed Assessed ,Scarring -Moisture ([place]-wound Skin Appearance) No Abnormality Assessed Assessed -Color ([place]-wound Skin Appearance) No Abnormality Assessed Assessed -Temperature ([place]-wound Skin No Abnormality No Abnormality No Abnormality Appearance) (Pt Warm) (Pt Warm) (Pt Warm) -Tenderness on Palpation ([place]-wound No Yes No Skin Appearance) -Ulcer Cleansing Soap and Water Soap and Water Soap and Water -Foul Odor after Cleansing No No No -Wound Comment(s) leonela intact LEONELA PRESENT leonela intact WC - Nurse 2 - General Ulcer CM Notes Start: 04/27/22 10:04 Freq: Status: Active Protocol: Activity Type Activity Date Activity User E-sign Co-sign Detail Recorded Client Recorded Date Recorded By Document 04/27/22 10:20 [id number] 04/27/22 10:44 Document 05/18/22 11:24 [id number] 05/18/22 11:31 04/27/22 05/18/22 10:20 11:24 Wound Center Nurse 2 #3 L Ant ankle/ post op -Correct Patient No No -Correct Side, Site, Position No No -Correct Procedure No No -Procedure Performed No No -Post Debridement (cm) - Length 0 -Post Debridement (cm) - Width 0 -Post Debridement (cm) - Depth 0 -Total Square (Post) (cm) 0 -Area of Debridement (cm) - Length 0 -Area of Debridement (cm) - Width 0 -Total Square (Area) (cm) 0 -Wound/Ulcer Outcome Not Healed Healed- Epithelialized #2- L HEEL - post op -Correct Patient No -Correct Side, Site, Position No -Correct Procedure No -Procedure Performed No -Post Debridement (cm) - Length 0 -Post Debridement (cm) - Width 0 -Post Debridement (cm) - Depth 0 -Total Square (Post) (cm) 0 -Area of Debridement (cm) - Length 0 -Area of Debridement (cm) - Width 0 -Total Square (Area) (cm) 0 -Wound/Ulcer Outcome Healed- Epithelialized #1 Left lateral ankle- post op -Time 11:28 -Correct Patient No Yes -Correct Side, Site, Position No Yes -Correct Procedure No Yes -Procedure Performed No Yes -Type of Procedure Debridement -Clinical Debridement Subcutaneous -Tissue Removed Subcutaneous -Post Debridement (cm) - Length 0.9 -Post Debridement (cm) - Width 0.3 -Post Debridement (cm) - Depth 0.2 -Total Square (Post) (cm) 0.27 -Area of Debridement (cm) - Length 0.9 -Area of Debridement (cm) - Width 0.3 -Total Square (Area) (cm) 0.27 -Tunneling No -Undermining/Tunneling No -Circular Undermining No -Wound/Ulcer Outcome Not Healed Not Healed -Ulcer Cleansing Rinsed/ Irrigated with Saline -Foul Odor after Cleansing No -Bioengineered Tissue Yes -Type of Bioengineered Tissue Epifix 18mm Disc -Expiration Date 01/21/27 -Product Lot Number [id number] -Percent Used 100 -Lot number of Saline Used [id number] -Bleeding Controlled with Pressure -Treatment Response Procedure Tolerated Well -Offloading No -Assistive Device(s) Wheelchair -Debridement - Subq, 1st 20sq cm No -Apply Skin Sub - 1st 25 sq cm - Legs 1 -Epifix 18mm Disc 3 Pain Scale: 0-10 Numeric Is Patient Pain Free? Yes Yes WC - Nurse 3 - General Ulcer D/C NN Start: 04/27/22 10:04 Freq: Status: Active Protocol: Activity Type Activity Date Activity User E-sign Co-sign Detail Recorded Client Recorded Date Recorded By Document 05/04/22 10:16 MW [id number] 05/04/22 10:17 MW 05/04/22 10:16 Wound Care Nurse 3 #3 L Ant ankle/ post op -Primary Dressing Applied NonAdherent Contact Layer -Other Dressing betadine -Primary Dressing Covered/Secured with Dry Gauze & Roll Gauze, Secured with Tape #1 Left lateral ankle- post op -Ulcer Cleansing Rinsed/ Irrigated with Saline -Foul Odor after Cleansing No -Negative Pressure Wound Therapy N/A -Other Dressing betadine -Primary Dressing Covered/Secured with Dry Gauze & Roll Gauze, Secured with Tape Treatment Response Procedure Tolerated Well Pain Scale: 0-10 Numeric Is Patient Pain Free? 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 Patient 2.5 weeks post op. Medial incision healed. Proximal lateral incision healed. Focal ulceration noted to the distal aspect of the incisional site with a granular base. This was excisionally debrided down to including level of subcutaneous tissue using a dermal curette 3 mm of all nonviable tissue. Healthy bleeding noted hemostasis obtained with light compression. Topical anesthesia was used. Oral consent was obtained. Postdebridement measurements document nursing notes. An 18 mm epi fix graft was applied to the site the entire graft was used no waste. This was stabilized with overlying wound veil and quarter inch Steri- Strips. An overlying dry sterile dressing with single-layer Tubigrip was applied this can be kept intact until follow-up in 1 week. Patient should continue offloading her heel using either Prevalon boot or heel float while in the supine position in bed to prevent any pressure ulcerations to the heel. Patient can ambulate assisted by walker under supervision with a cam boot to left lower extremity. We are awaiting duplex ultrasound results from the alf facility. Follow-up in 1 week. (2) Peripheral vascular disease, unspecified: CODE(S): I73.9 - Peripheral vascular disease, unspecified (3) Osteomyelitis of left ankle: CODE(S): M86.9 - Osteomyelitis, unspecified
== END 2022-05-22 23:59 | disposition home or self-care (01) ==
LOC: WC 11:00
PROVIDERS: PCP Internal Medicine; Referring Provider Podiatrist; Visit Provider Podiatrist
DX: M86.9 Osteomyelitis, unspecified (principal); L97.324 Non-pressure chronic ulcer of left ankle with necrosis of bone; I73.9 Peripheral vascular disease, unspecified; Z79.4 Long term (current) use of insulin; Z79.02 Long term (current) use of antithrombotics/antiplatelets; Z79.890 Hormone replacement therapy; Z79.899 Other long term (current) drug therapy
CPT/HCPCS: 15271; 99213; Q4186; G0463

== ENCOUNTER → 2022-05-21 | Outpatient (REF) | payer MEDICARE, MEDICAID, SELFPAY ==
[2022-05-21 11:43] LABS: Absolute Lymphocyte Count 3.44 X10^3/uL (0.83-4.51); Absolute Neutrophil Count 4.6 X10^3/uL (2.0-7.7); Basophil# 0.01 X10^3/uL; Basophil% 0.1 % (0-1); Eosinophil# 0.34 X10^3/uL; Eosinophils% 3.7 % (0-5); Hematocrit 33.9 % (37-47); Hemoglobin 10.9 g/dL (12.0-15.0); Lymphocyte # 3.44 X10^3/ul (0.83-4.51); Mean Corp Hgb Conc 32.2 g/dL (32-36); Mean Corpuscular Hgb 28.8 pg (27.0-32.0); Mean Corpuscular Volume 89.4 fL (81-99); Mean Platelet Vol. 11.7 fl (6.2-12.0); Monocyte# 0.86 X10^3/uL; Monocyte% 9.3 % (0-10); NRBC Flagged by Analyzer 0 % (0-5); Neutrophil # 4.61 X10^3/uL (2.7-7.7); Neutrophil % 49.6 % (47-70); Platelet Count 230 K/mm3 (150-450); RBC Distribution Width CV 14.2 % (11.6-14.6); RBC Distribution Width SD 46.5 fl (35.1-43.9); Red Blood Count 3.79 M/mm3 (4.2-5.4); White Blood Count 9.3 K/mm3 (4.4-11.0)
[2022-05-21 12:02] LABS: Anion Gap 3 (5-15); BUN 30 mg/dL (7-18); BUN/Creat Ratio 23.4 RATIO (10-20); CRP < 2.90 mg/L (0.0-3.0); Calcium,Total 9.4 mg/dL (8.5-10.1); Chloride 106 mmol/L (98-107); Creatinine, Serum 1.28 mg/dL (0.55-1.02); EST Glomerular Filtration Rate 42 mL/min (>60); Est Glom Filt Rate - Afr Amer 51 mL/min (>60); Glucose 132 mg/dL (74-106); Potassium 3.7 mmol/L (3.5-5.1); Sodium Level 139 mmol/L (136-145)
== END ==
LOC: OLS.SW 11:00
PROVIDERS: PCP Internal Medicine; Visit Provider Internal Medicine
DX: M86.172 Other acute osteomyelitis, left ankle and foot (principal)
CPT/HCPCS: 36415; 80048; 85025; 86140

== ENCOUNTER → 2022-05-27 | Outpatient (REF) | payer MEDICARE, MEDICAID, SELFPAY ==
[2022-05-27 10:16] LABS: CRP < 2.90 mg/L (0.0-3.0)
== END ==
LOC: OLS.SW 05:00
PROVIDERS: PCP Internal Medicine; Visit Provider Internal Medicine
DX: M79.10 Myalgia, unspecified site
CPT/HCPCS: 36415; 84550; 86140

== ENCOUNTER → 2022-05-31 | Outpatient (REF) | payer MEDICARE, MEDICAID, SELFPAY ==
[2022-05-31 10:23] LABS: Absolute Lymphocyte Count 3.32 X10^3/uL (0.83-4.51); Absolute Neutrophil Count 4.1 X10^3/uL (2.0-7.7); Basophil# 0.02 X10^3/uL; Basophil% 0.2 % (0-1); Eosinophil# 0.28 X10^3/uL; Eosinophils% 3.3 % (0-5); Hematocrit 36.4 % (37-47); Hemoglobin 11.7 g/dL (12.0-15.0); Lymphocyte # 3.32 X10^3/ul (0.83-4.51); Lymphocyte % 39.3 % (19-41); Mean Corp Hgb Conc 32.1 g/dL (32-36); Mean Corpuscular Hgb 28.5 pg (27.0-32.0); Mean Corpuscular Volume 88.8 fL (81-99); Mean Platelet Vol. 12.1 fl (6.2-12.0); Monocyte# 0.74 X10^3/uL; Monocyte% 8.8 % (0-10); NRBC Flagged by Analyzer 0 % (0-5); Neutrophil # 4.07 X10^3/uL (2.7-7.7); Neutrophil % 48.2 % (47-70); Platelet Count 237 K/mm3 (150-450); RBC Distribution Width CV 14.4 % (11.6-14.6); RBC Distribution Width SD 46.5 fl (35.1-43.9); White Blood Count 8.5 K/mm3 (4.4-11.0)
[2022-05-31 10:53] LABS: Anion Gap 10 (5-15); BUN 31 mg/dL (7-18); BUN/Creat Ratio 21.4 RATIO (10-20); CRP < 2.90 mg/L (0.0-3.0); Calcium,Total 9.5 mg/dL (8.5-10.1); Chloride 103 mmol/L (98-107); Creatinine, Serum 1.45 mg/dL (0.55-1.02); EST Glomerular Filtration Rate 37 mL/min (>60); Est Glom Filt Rate - Afr Amer 44 mL/min (>60); Glucose 191 mg/dL (74-106); Potassium 4.1 mmol/L (3.5-5.1); Sodium Level 139 mmol/L (136-145)
== END ==
LOC: OLS.SW 05:00
PROVIDERS: PCP Internal Medicine; Visit Provider Internal Medicine
DX: I10 Essential (primary) hypertension (principal)
CPT/HCPCS: 36415; 80048; 85025; 86140

== ENCOUNTER 2022-06-01 10:20 | Outpatient (RCR) | payer MEDICARE, MEDICAID, SELFPAY ==
[2022-05-23 00:13] VITALS: BP 112/52; PULSE 52; RESP 16; TEMP 35.7
[2022-06-01 10:29] VITALS: BP 125/41; PULSE 56; RESP 22; TEMP 35.8
--- NOTE | 2022-06-01 11:16 | PN.PCM_ITS ---
History of Present Illness Date of Service: 06/01/22 Progress of Wound: 87-year-old female presents to clinic 1 month s/p left ankle hardware removal with wound debridement and application of graft. Denies pain/constitutionals today. No signs of DVT. Objective Data Objective Data Vital Signs: Vital Signs Temp Pulse Resp BP 96.4 F L 56 L 22 H 125/41 H 06/01/22 10:29 06/01/22 10:29 06/01/22 10:29 06/01/22 10:29 Physical Exam Narrative Patient AOx3. Neurovascular status unchanged. Wounds to left lateral incision healed as well as plantar heel. No signs of DVT. Debridement Note Debridement Note Post-Debridement Measurements and Additional Note: Post-Debridement Measurements/Treatment WC - Nurse 1 - General Ulcer Assessment Start: 06/01/22 10:24 Freq: Status: Active Protocol: LEXY.KOURTNEY Activity Type Activity Date Activity User E-sign Co-sign Detail Recorded Client Recorded Date Recorded By Document 06/01/22 10:29 DL [id number] 06/01/22 10:41 DL 06/01/22 10:29 WC - Today's Visit Information Type of service Follow-up Visit (Physician/GEOPHYSICS SCIENTIST ) Arrival Mode Wheelchair Transfer Assistance Manual Transfer Assist (Other) x1 Patient Identification Verified (Name & Yes ) Patient Requires Transmission-Based No Precautions Vital Signs Temperature (97.8 F-99.1 F) 96.4 F L Temperature Source Temporal Pulse Rate (60-100) 56 L Pulse Location Monitor Respiratory Rate (12-18) 22 H Respiratory rate source Observation Blood Pressure (90/60-120/80) 125/41 H Blood Pressure Mean (mm Hg) 69 Source Monitor History Since Last Visit- (Skip if this is Patient's initial visit) Have you changed medications since your No last visit? Any new allergies or adverse reactions No Had a fall/change in ADL's that may No increase risk of falls Signs or symptoms of abuse and/or No neglect since last visit Have you been in the hospital since your No last visit? Has dressing in place as prescribed Yes Has compression in place as prescribed No Has offloadiing in place as prescribed No Experienced any changes in pain level or No management Left Footwear Slipper Right Footwear Slipper Pain Scale: 0-10 Numeric Is Patient Pain Free? Yes - Nurse 1 - General Ulcer Measurement Start: 06/01/22 10:24 Freq: Status: Active Protocol: Activity Type Activity Date Activity User E-sign Co-sign Detail Recorded Client Recorded Date Recorded By Document 06/01/22 10:29 DL [id number] 06/01/22 10:41 DL 06/01/22 10:29 Wound Center Nurse 1 #2- L HEEL -Current Size (cm) - Length 0.1 -Current Size (cm) - Width 0.1 -Current Size (cm) - Depth 0.1 -Total Square Cm 0.01 -Photo Taken Yes -Exudate Amt None Present -Wound Margin Thickened -Granulation Amt Large (67-100%) -Granulation Quality [place] -Necrosis Amt None Present (0 %) -Structure Exposed Fat Layer Exposed -Texture ([place]-wound Skin Appearance) Scarring -Moisture ([place]-wound Skin Appearance) Dry/Scaly -Color ([place]-wound Skin Appearance) No Abnormality -Temperature ([place]-wound Skin No Abnormality Appearance) (Pt Warm) -Tenderness on Palpation ([place]-wound No Skin Appearance) -Ulcer Cleansing Soap and Water -Foul Odor after Cleansing No -Anesthetic Used 5% Lidocaine Gel #1 Left lateral ankle -Current Size (cm) - Length 0.1 -Current Size (cm) - Width 0.1 -Current Size (cm) - Depth 0.1 -Total Square Cm 0.01 -Photo Taken Yes -Exudate Amt None Present -Wound Margin Flat & Intact -Granulation Amt Large (67-100%) -Granulation Quality [place] -Necrosis Amt None Present (0 %) -Structure Exposed N/A -Texture ([place]-wound Skin Appearance) Scarring -Moisture ([place]-wound Skin Appearance) No Abnormality -Color ([place]-wound Skin Appearance) No Abnormality -Temperature ([place]-wound Skin No Abnormality Appearance) (Pt Warm) -Ulcer Cleansing Soap and Water -Foul Odor after Cleansing No Left Calf (cm) 28.1 Left Ankle (cm) 18.3 Assessment/Plan Assessment/Plan (1) 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 Wounds healed at this time. Patient able to ambulate in normal shoe gear assisted by walker under supervision. Continue physical therapy at nursing facility. Will follow up with patient in 1 month in my private office and reorder x-rays. Patient should continue offloading heel while laying supine in bed to prevent any additional pressure ulcerations. (2) Peripheral vascular disease, unspecified: CODE(S): I73.9 - Peripheral vascular disease, unspecified
== END 2022-06-01 15:52 | disposition home or self-care (01) ==
LOC: WC 10:20
PROVIDERS: PCP Internal Medicine; Referring Provider Podiatrist; Visit Provider Podiatrist
DX: Z09 Encounter for follow-up examination after completed treatment for conditions other than malignant neoplasm (principal); I73.9 Peripheral vascular disease, unspecified; Z79.4 Long term (current) use of insulin; Z79.02 Long term (current) use of antithrombotics/antiplatelets; Z79.890 Hormone replacement therapy; Z79.899 Other long term (current) drug therapy
CPT/HCPCS: 99213; G0463

== ENCOUNTER → 2022-06-02 | Outpatient (CLI) | payer MEDICARE, MEDICAID, SELFPAY ==
--- NOTE | 2022-06-02 13:09 | ADUL_ITS ---
Reason For Study: s/p Lt SFA/Popliteal angioplasty Left Velocities Ext Iliac Artery, dist = 83 cm./sec. Common Femoral Artery, mid = 142 cm./sec. Lt SFA prox pre stenosis: 82cm/s Lt SFA prox stenosis: 374cm/s Lt SFA prox post stenosis: 102cm/s. Supf. Femoral Artery, mid = 68 cm./sec. Supf. Femoral Artery, dist = 53 cm./sec. Profunda Femoral Artery = 100 cm./sec. Popliteal Artery, mid = 59 cm./sec. Ant.Tibial Artery, prox = 32 cm./sec. Ant Tibial Artery, mid = 27 cm./sec. Ant. Tibial Artery, distal = 27 cm./sec. Post. Tibial Artery, prox = 46 cm./sec. Post Tibial Artery, mid = 36 cm./sec. Post Tibial Artery, dist. = 52 cm./sec. Peroneal Artery,dist. = 14 cm./sec. No flow noted Lt PeroA prox/mid. Procedure Exam performed in department. VL/US Art Duplex Unilat Lower Ext Interpretation Summary Left superficial femoral artery with >50% stenosis within the proximal segment. Otherwise not focal stenosis identified Ordering Physician: Jeremy Russo Referring Physician: Billie De Leon Performed By: Lin Delacruz, VALDOCS, RVT
--- NOTE | 2022-06-02 13:09 | ART_ITS ---
Reason For Study: PAD, s/p Lt SFA/Eladio angioplasty Procedure A bilateral lower extremity continuous wave Doppler with analog waveform analysis and ankle brachial indexes. Left Segmental Pressures Left brachial= 142mmHg. Left posterior tibial artery = 118mmHg. Left dorsalis pedis artery = 81mmHg. Left digit = 29 mmHg. Right Segmental Pressures Right brachial= 134mmHg. Right posterior tibial artery = 84mmHg. Right dorsalis pedis artery = 66mmHg. Right digit = 44 mmHg. Indices The right ankle brachial index by the posterior tibial artery is 0.59. The right ankle brachial index by the dorsalis pedis is 0.46. The right digital-brachial index is 0.31. The left ankle brachial index by the posterior tibial artery is 0.83. The left ankle brachial index by the dorsalis pedis is 0.57. The left digital-brachial index is 0.20. VL/Ankle Brachial Index Interpretation Summary Right DAVION 0.59, severe arterial insufficiency. Doppler/PVR waveforms of the rig ht ankle moderately diminished. Left DAVION 0.83, moderate arterial insufficieny. Doppler/PVR waveforms of the lef t ankle moderately diminished Ordering Physician: Jolanta Morgan Referring Physician: Billie De Leon Performed By: Lin Delacruz RDCS/RVT
== END | disposition home or self-care (01) ==
LOC: CVS 13:08
PROVIDERS: PCP Internal Medicine; Visit Provider Internal Medicine
DX: Z48.812 Encounter for surgical aftercare following surgery on the circulatory system (principal); I73.9 Peripheral vascular disease, unspecified
CPT/HCPCS: 93922; 93926

== ENCOUNTER → 2022-06-07 | Outpatient (REF) | payer MEDICARE, MEDICAID, SELFPAY ==
[2022-06-07 09:22] LABS: Absolute Lymphocyte Count 3.87 X10^3/uL (0.83-4.51); Absolute Neutrophil Count 3.6 X10^3/uL (2.0-7.7); Basophil# 0.01 X10^3/uL; Basophil% 0.1 % (0-1); Eosinophil# 0.31 X10^3/uL; Eosinophils% 3.6 % (0-5); Hematocrit 36.2 % (37-47); Hemoglobin 11.2 g/dL (12.0-15.0); Lymphocyte # 3.87 X10^3/ul (0.83-4.51); Lymphocyte % 45.2 % (19-41); Mean Corp Hgb Conc 30.9 g/dL (32-36); Mean Corpuscular Hgb 27.8 pg (27.0-32.0); Mean Corpuscular Volume 89.8 fL (81-99); Mean Platelet Vol. 12.1 fl (6.2-12.0); Monocyte# 0.79 X10^3/uL; Monocyte% 9.2 % (0-10); NRBC Flagged by Analyzer 0 % (0-5); Neutrophil # 3.55 X10^3/uL (2.7-7.7); Neutrophil % 41.5 % (47-70); Platelet Count 226 K/mm3 (150-450); RBC Distribution Width CV 14.5 % (11.6-14.6); RBC Distribution Width SD 47.5 fl (35.1-43.9); Red Blood Count 4.03 M/mm3 (4.2-5.4); White Blood Count 8.6 K/mm3 (4.4-11.0)
[2022-06-07 10:13] LABS: Anion Gap 10 (5-15); BUN 44 mg/dL (7-18); BUN/Creat Ratio 28.8 RATIO (10-20); CRP < 2.90 mg/L (0.0-3.0); Calcium,Total 9.3 mg/dL (8.5-10.1); Chloride 104 mmol/L (98-107); Creatinine, Serum 1.53 mg/dL (0.55-1.02); EST Glomerular Filtration Rate 34 mL/min (>60); Est Glom Filt Rate - Afr Amer 42 mL/min (>60); Glucose 139 mg/dL (74-106); Sodium Level 141 mmol/L (136-145)
== END ==
LOC: OLS.SW 05:00
PROVIDERS: PCP Internal Medicine; Visit Provider Internal Medicine
DX: E11.9 Type 2 diabetes mellitus without complications (principal); I10 Essential (primary) hypertension
CPT/HCPCS: 36415; 80048; 85025; 86140

== ENCOUNTER → 2022-06-14 | Outpatient (REF) | payer MEDICARE, MEDICAID, SELFPAY ==
[2022-06-14 08:36] LABS: Absolute Lymphocyte Count 3.24 X10^3/uL (0.83-4.51); Absolute Neutrophil Count 3.8 X10^3/uL (2.0-7.7); Basophil# 0.02 X10^3/uL; Basophil% 0.2 % (0-1); Eosinophil# 0.32 X10^3/uL; Eosinophils% 3.9 % (0-5); Hematocrit 35.5 % (37-47); Hemoglobin 11.3 g/dL (12.0-15.0); Lymphocyte # 3.24 X10^3/ul (0.83-4.51); Lymphocyte % 39.4 % (19-41); Mean Corp Hgb Conc 31.8 g/dL (32-36); Mean Corpuscular Hgb 28.1 pg (27.0-32.0); Mean Corpuscular Volume 88.3 fL (81-99); Mean Platelet Vol. 12.2 fl (6.2-12.0); Monocyte% 9.7 % (0-10); NRBC Flagged by Analyzer 0 % (0-5); Neutrophil # 3.81 X10^3/uL (2.7-7.7); Neutrophil % 46.4 % (47-70); Platelet Count 225 K/mm3 (150-450); RBC Distribution Width CV 14.2 % (11.6-14.6); RBC Distribution Width SD 45.9 fl (35.1-43.9); Red Blood Count 4.02 M/mm3 (4.2-5.4); White Blood Count 8.2 K/mm3 (4.4-11.0)
[2022-06-14 09:09] LABS: Anion Gap 7 (5-15); BUN 24 mg/dL (7-18); BUN/Creat Ratio 19.4 RATIO (10-20); CRP 4.51 mg/L (0.0-3.0); Calcium,Total 9.6 mg/dL (8.5-10.1); Chloride 107 mmol/L (98-107); Creatinine, Serum 1.24 mg/dL (0.55-1.02); EST Glomerular Filtration Rate 44 mL/min (>60); Est Glom Filt Rate - Afr Amer 53 mL/min (>60); Glucose 119 mg/dL (74-106); Sodium Level 140 mmol/L (136-145)
== END ==
LOC: OLS.SW 05:00
PROVIDERS: PCP Internal Medicine; Visit Provider Internal Medicine
DX: I10 Essential (primary) hypertension (principal)
CPT/HCPCS: 36415; 80048; 85025; 86140

== ENCOUNTER → 2022-06-21 | Outpatient (REF) | payer MEDICARE, MEDICAID, SELFPAY ==
[2022-06-21 09:52] LABS: Absolute Lymphocyte Count 3.07 X10^3/uL (0.83-4.51); Absolute Neutrophil Count 3.5 X10^3/uL (2.0-7.7); Basophil# 0.01 X10^3/uL; Basophil% 0.1 % (0-1); Eosinophil# 0.27 X10^3/uL; Eosinophils% 3.6 % (0-5); Hematocrit 36.1 % (37-47); Hemoglobin 11.5 g/dL (12.0-15.0); Lymphocyte # 3.07 X10^3/ul (0.83-4.51); Lymphocyte % 40.6 % (19-41); Mean Corp Hgb Conc 31.9 g/dL (32-36); Mean Corpuscular Hgb 28.3 pg (27.0-32.0); Mean Corpuscular Volume 88.7 fL (81-99); Mean Platelet Vol. 12.1 fl (6.2-12.0); Monocyte# 0.74 X10^3/uL; Monocyte% 9.8 % (0-10); NRBC Flagged by Analyzer 0 % (0-5); Neutrophil # 3.45 X10^3/uL (2.7-7.7); Neutrophil % 45.5 % (47-70); Platelet Count 230 K/mm3 (150-450); RBC Distribution Width CV 14.4 % (11.6-14.6); RBC Distribution Width SD 46.6 fl (35.1-43.9); Red Blood Count 4.07 M/mm3 (4.2-5.4); White Blood Count 7.6 K/mm3 (4.4-11.0)
[2022-06-21 09:59] LABS: Anion Gap 7 (5-15); BUN 29 mg/dL (7-18); CRP 3.97 mg/L (0.0-3.0); Calcium,Total 9.2 mg/dL (8.5-10.1); Chloride 107 mmol/L (98-107); Creatinine, Serum 1.32 mg/dL (0.55-1.02); EST Glomerular Filtration Rate 41 mL/min (>60); Est Glom Filt Rate - Afr Amer 49 mL/min (>60); Glucose 243 mg/dL (74-106); Potassium 4.1 mmol/L (3.5-5.1); Sodium Level 140 mmol/L (136-145)
== END ==
LOC: OLS.SW 05:00
PROVIDERS: PCP Internal Medicine; Visit Provider Internal Medicine
DX: E11.9 Type 2 diabetes mellitus without complications (principal); I10 Essential (primary) hypertension
CPT/HCPCS: 36415; 80048; 85025; 86140

== ENCOUNTER → 2022-06-28 | Outpatient (REF) | payer MEDICARE, MEDICAID, SELFPAY ==
[2022-06-28 08:40] LABS: Absolute Lymphocyte Count 3.19 X10^3/uL (0.83-4.51); Basophil# 0.01 X10^3/uL; Basophil% 0.1 % (0-1); Eosinophil# 0.21 X10^3/uL; Eosinophils% 2.6 % (0-5); Hematocrit 37.8 % (37-47); Hemoglobin 12.1 g/dL (12.0-15.0); Lymphocyte # 3.19 X10^3/ul (0.83-4.51); Lymphocyte % 39.1 % (19-41); Mean Corpuscular Hgb 28.2 pg (27.0-32.0); Mean Corpuscular Volume 88.1 fL (81-99); Mean Platelet Vol. 11.9 fl (6.2-12.0); Monocyte# 0.76 X10^3/uL; Monocyte% 9.3 % (0-10); NRBC Flagged by Analyzer 0 % (0-5); Neutrophil # 3.96 X10^3/uL (2.7-7.7); Neutrophil % 48.5 % (47-70); Platelet Count 243 K/mm3 (150-450); RBC Distribution Width CV 14.3 % (11.6-14.6); RBC Distribution Width SD 46.2 fl (35.1-43.9); Red Blood Count 4.29 M/mm3 (4.2-5.4); White Blood Count 8.2 K/mm3 (4.4-11.0)
[2022-06-28 08:54] LABS: Hemoglobin A1c 6.4 % (3.8-5.6)
[2022-06-28 09:06] LABS: AST(SGOT) 24 U/L (15-37); Alanine Aminotransfer ALT/SGPT 25 U/L (13-56); Albumin, Serum 2.9 g/dL (3.2-5.0); Alkaline Phosphatase 75 U/L (45-117); Anion Gap 9 (5-15); BUN 21 mg/dL (7-18); BUN/Creat Ratio 18.8 RATIO (10-20); Bilirubin, Direct 0.09 mg/dL (0.00-0.30); CRP 6.17 mg/L (0.0-3.0); Calcium,Total 9.3 mg/dL (8.5-10.1); Chloride 110 mmol/L (98-107); Cholesterol 126 mg/dL (200); Creatinine, Serum 1.12 mg/dL (0.55-1.02); EST Glomerular Filtration Rate 49 mL/min (>60); Est Glom Filt Rate - Afr Amer 59 mL/min (>60); Globulin 3.9 g/dL (2.2-4.2); Glucose 132 mg/dL (74-106); High Density Lipoprotein 44 mg/dL; Potassium 3.5 mmol/L (3.5-5.1); Protein, Total 6.8 g/dL (6.4-8.2); Sodium Level 144 mmol/L (136-145); Triglycerides 126 mg/dL; Very Low Density Lipoprotein 25 mg/dL (5-40)
== END ==
LOC: OLS.SW 04:00
PROVIDERS: PCP Internal Medicine; Referring Provider Internal Medicine; Visit Provider Internal Medicine
DX: E11.9 Type 2 diabetes mellitus without complications (principal)
CPT/HCPCS: 36415; 80048; 80061; 80076; 83036; 85025; 86140

== ENCOUNTER → 2022-07-05 | Outpatient (REF) | payer MEDICARE, MEDICAID, SELFPAY ==
[2022-07-05 08:55] LABS: Absolute Lymphocyte Count 3.48 X10^3/uL (0.83-4.51); Absolute Neutrophil Count 4.2 X10^3/uL (2.0-7.7); Basophil# 0.02 X10^3/uL; Basophil% 0.2 % (0-1); Eosinophil# 0.31 X10^3/uL; Eosinophils% 3.5 % (0-5); Hematocrit 36.1 % (37-47); Hemoglobin 11.3 g/dL (12.0-15.0); Lymphocyte # 3.48 X10^3/ul (0.83-4.51); Lymphocyte % 39.4 % (19-41); Mean Corp Hgb Conc 31.3 g/dL (32-36); Mean Corpuscular Hgb 28.5 pg (27.0-32.0); Mean Corpuscular Volume 91.2 fL (81-99); Mean Platelet Vol. 11.5 fl (6.2-12.0); Monocyte# 0.82 X10^3/uL; Monocyte% 9.3 % (0-10); NRBC Flagged by Analyzer 0 % (0-5); Neutrophil # 4.17 X10^3/uL (2.7-7.7); Neutrophil % 47.3 % (47-70); Platelet Count 224 K/mm3 (150-450); Red Blood Count 3.96 M/mm3 (4.2-5.4); White Blood Count 8.8 K/mm3 (4.4-11.0)
[2022-07-05 09:11] LABS: Anion Gap 8 (5-15); BUN 27 mg/dL (7-18); BUN/Creat Ratio 22.7 RATIO (10-20); CRP < 2.90 mg/L (0.0-3.0); Calcium,Total 9.2 mg/dL (8.5-10.1); Chloride 105 mmol/L (98-107); Creatinine, Serum 1.19 mg/dL (0.55-1.02); EST Glomerular Filtration Rate 46 mL/min (>60); Est Glom Filt Rate - Afr Amer 55 mL/min (>60); Glucose 92 mg/dL (74-106); Potassium 3.7 mmol/L (3.5-5.1); Sodium Level 141 mmol/L (136-145)
== END ==
LOC: OLS.SW 04:00
PROVIDERS: PCP Internal Medicine; Referring Provider Internal Medicine; Visit Provider Internal Medicine
DX: E11.9 Type 2 diabetes mellitus without complications (principal); I10 Essential (primary) hypertension
CPT/HCPCS: 36415; 80048; 85025; 86140

== ENCOUNTER → 2022-07-12 | Outpatient (REF) | payer MEDICARE, MEDICAID, SELFPAY ==
[2022-07-12 08:17] LABS: Absolute Lymphocyte Count 2.94 X10^3/uL (0.83-4.51); Absolute Neutrophil Count 5.9 X10^3/uL (2.0-7.7); Basophil# 0.01 X10^3/uL; Basophil% 0.1 % (0-1); Eosinophil# 0.21 X10^3/uL; Eosinophils% 2.1 % (0-5); Hematocrit 36.2 % (37-47); Hemoglobin 11.5 g/dL (12.0-15.0); Lymphocyte # 2.94 X10^3/ul (0.83-4.51); Lymphocyte % 29.9 % (19-41); Mean Corp Hgb Conc 31.8 g/dL (32-36); Mean Corpuscular Hgb 28.6 pg (27.0-32.0); Mean Platelet Vol. 12.1 fl (6.2-12.0); Monocyte# 0.77 X10^3/uL; Monocyte% 7.8 % (0-10); NRBC Flagged by Analyzer 0 % (0-5); Neutrophil # 5.85 X10^3/uL (2.7-7.7); Neutrophil % 59.7 % (47-70); Platelet Count 258 K/mm3 (150-450); RBC Distribution Width SD 46.3 fl (35.1-43.9); Red Blood Count 4.02 M/mm3 (4.2-5.4); White Blood Count 9.8 K/mm3 (4.4-11.0)
[2022-07-12 09:19] LABS: Anion Gap 6 (5-15); BUN 18 mg/dL (7-18); BUN/Creat Ratio 17.8 RATIO (10-20); CRP 4.55 mg/L (0.0-3.0); Calcium,Total 9.3 mg/dL (8.5-10.1); Chloride 109 mmol/L (98-107); Creatinine, Serum 1.01 mg/dL (0.55-1.02); EST Glomerular Filtration Rate 55 mL/min (>60); Est Glom Filt Rate - Afr Amer 67 mL/min (>60); Glucose 139 mg/dL (74-106); Potassium 3.8 mmol/L (3.5-5.1); Sodium Level 143 mmol/L (136-145)
== END ==
LOC: OLS.SW 05:55
PROVIDERS: PCP Internal Medicine; Referring Provider Internal Medicine; Visit Provider Internal Medicine
DX: M86.172 Other acute osteomyelitis, left ankle and foot (principal); I10 Essential (primary) hypertension
CPT/HCPCS: 36415; 80048; 85025; 86140

== ENCOUNTER → 2022-07-19 | Outpatient (REF) | payer MEDICARE, MEDICAID, SELFPAY ==
[2022-07-19 07:24] LABS: Absolute Lymphocyte Count 3.39 X10^3/uL (0.83-4.51); Absolute Neutrophil Count 3.4 X10^3/uL (2.0-7.7); Basophil# 0.02 X10^3/uL; Basophil% 0.3 % (0-1); Eosinophils% 3.8 % (0-5); Hematocrit 36.2 % (37-47); Hemoglobin 11.3 g/dL (12.0-15.0); Lymphocyte # 3.39 X10^3/ul (0.83-4.51); Lymphocyte % 43.1 % (19-41); Mean Corp Hgb Conc 31.2 g/dL (32-36); Mean Corpuscular Hgb 28.7 pg (27.0-32.0); Mean Corpuscular Volume 91.9 fL (81-99); Mean Platelet Vol. 11.5 fl (6.2-12.0); Monocyte# 0.75 X10^3/uL; Monocyte% 9.5 % (0-10); NRBC Flagged by Analyzer 0 % (0-5); Neutrophil % 43.2 % (47-70); Platelet Count 248 K/mm3 (150-450); RBC Distribution Width CV 14.1 % (11.6-14.6); RBC Distribution Width SD 47.7 fl (35.1-43.9); Red Blood Count 3.94 M/mm3 (4.2-5.4); White Blood Count 7.9 K/mm3 (4.4-11.0)
[2022-07-19 08:07] LABS: Anion Gap 6 (5-15); BUN 20 mg/dL (7-18); BUN/Creat Ratio 18.2 RATIO (10-20); CRP < 2.90 mg/L (0.0-3.0); Chloride 107 mmol/L (98-107); EST Glomerular Filtration Rate 50 mL/min (>60); Est Glom Filt Rate - Afr Amer 61 mL/min (>60); Glucose 95 mg/dL (74-106); Potassium 3.9 mmol/L (3.5-5.1); Sodium Level 140 mmol/L (136-145)
== END ==
LOC: OLS.SW 05:00
PROVIDERS: PCP Internal Medicine; Referring Provider Internal Medicine; Visit Provider Internal Medicine
DX: E11.9 Type 2 diabetes mellitus without complications (principal); I10 Essential (primary) hypertension
CPT/HCPCS: 36415; 80048; 85025; 86140

== ENCOUNTER → 2022-07-26 | Outpatient (REF) | payer MEDICARE, MEDICAID, SELFPAY ==
[2022-07-26 08:57] LABS: Absolute Lymphocyte Count 3.01 X10^3/uL (0.83-4.51); Absolute Neutrophil Count 4.9 X10^3/uL (2.0-7.7); Basophil# 0.02 X10^3/uL; Basophil% 0.2 % (0-1); Eosinophil# 0.31 X10^3/uL; Eosinophils% 3.3 % (0-5); Hematocrit 37.4 % (37-47); Hemoglobin 11.6 g/dL (12.0-15.0); Lymphocyte # 3.01 X10^3/ul (0.83-4.51); Lymphocyte % 32.5 % (19-41); Mean Corpuscular Hgb 28.6 pg (27.0-32.0); Mean Corpuscular Volume 92.3 fL (81-99); Monocyte# 1.01 X10^3/uL; Monocyte% 10.9 % (0-10); NRBC Flagged by Analyzer 0 % (0-5); Neutrophil # 4.88 X10^3/uL (2.7-7.7); Neutrophil % 52.8 % (47-70); Platelet Count 228 K/mm3 (150-450); RBC Distribution Width CV 13.8 % (11.6-14.6); Red Blood Count 4.05 M/mm3 (4.2-5.4); White Blood Count 9.3 K/mm3 (4.4-11.0)
[2022-07-26 09:22] LABS: Anion Gap 8 (5-15); BUN 27 mg/dL (7-18); BUN/Creat Ratio 22.5 RATIO (10-20); Calcium,Total 9.5 mg/dL (8.5-10.1); Chloride 100 mmol/L (98-107); EST Glomerular Filtration Rate 45 mL/min (>60); Est Glom Filt Rate - Afr Amer 55 mL/min (>60); Glucose 111 mg/dL (74-106); Potassium 4.2 mmol/L (3.5-5.1); Sodium Level 136 mmol/L (136-145)
== END ==
LOC: OLS.SW 04:00
PROVIDERS: PCP Internal Medicine; Referring Provider Internal Medicine; Visit Provider Internal Medicine
DX: I10 Essential (primary) hypertension (principal)
CPT/HCPCS: 36415; 80048; 85025; 86140

== ENCOUNTER → 2022-08-02 | Outpatient (REF) | payer MEDICARE, MEDICAID, SELFPAY ==
[2022-08-02 07:59] LABS: Absolute Lymphocyte Count 2.79 X10^3/uL (0.83-4.51); Absolute Neutrophil Count 7.3 X10^3/uL (2.0-7.7); Basophil# 0.03 X10^3/uL; Basophil% 0.3 % (0-1); Eosinophils% 2.6 % (0-5); Hematocrit 34.2 % (37-47); Hemoglobin 10.7 g/dL (12.0-15.0); Lymphocyte # 2.79 X10^3/ul (0.83-4.51); Lymphocyte % 24.1 % (19-41); Mean Corp Hgb Conc 31.3 g/dL (32-36); Mean Corpuscular Hgb 28.7 pg (27.0-32.0); Mean Corpuscular Volume 91.7 fL (81-99); Monocyte# 1.06 X10^3/uL; Monocyte% 9.2 % (0-10); NRBC Flagged by Analyzer 0 % (0-5); Neutrophil # 7.33 X10^3/uL (2.7-7.7); Neutrophil % 63.4 % (47-70); Platelet Count 226 K/mm3 (150-450); RBC Distribution Width CV 13.4 % (11.6-14.6); RBC Distribution Width SD 45.5 fl (35.1-43.9); Red Blood Count 3.73 M/mm3 (4.2-5.4); White Blood Count 11.6 K/mm3 (4.4-11.0)
[2022-08-02 08:12] LABS: Anion Gap 7 (5-15); BUN 20 mg/dL (7-18); BUN/Creat Ratio 19.8 RATIO (10-20); Calcium,Total 8.9 mg/dL (8.5-10.1); Chloride 102 mmol/L (98-107); Creatinine, Serum 1.01 mg/dL (0.55-1.02); EST Glomerular Filtration Rate 55 mL/min (>60); Est Glom Filt Rate - Afr Amer 67 mL/min (>60); Glucose 190 mg/dL (74-106); Potassium 3.9 mmol/L (3.5-5.1); Sodium Level 136 mmol/L (136-145)
== END ==
LOC: OLS.SW 05:00
PROVIDERS: PCP Internal Medicine; Visit Provider Internal Medicine
DX: A49.9 Bacterial infection, unspecified (principal); I10 Essential (primary) hypertension
CPT/HCPCS: 36415; 80048; 85025; 86140

== ENCOUNTER → 2022-08-09 | Outpatient (REF) | payer MEDICARE, MEDICAID, SELFPAY ==
[2022-08-09 08:44] LABS: Absolute Lymphocyte Count 2.65 X10^3/uL (0.83-4.51); Basophil# 0.03 X10^3/uL; Basophil% 0.2 % (0-1); Eosinophil# 0.08 X10^3/uL; Eosinophils% 0.5 % (0-5); Hematocrit 36.4 % (37-47); Hemoglobin 11.9 g/dL (12.0-15.0); Lymphocyte # 2.65 X10^3/ul (0.83-4.51); Lymphocyte % 15.4 % (19-41); Mean Corp Hgb Conc 32.7 g/dL (32-36); Mean Corpuscular Volume 88.8 fL (81-99); Mean Platelet Vol. 11.2 fl (6.2-12.0); Monocyte# 1.42 X10^3/uL; Monocyte% 8.2 % (0-10); NRBC Flagged by Analyzer 0 % (0-5); Neutrophil # 12.98 X10^3/uL (2.7-7.7); Neutrophil % 75.1 % (47-70); Platelet Count 297 K/mm3 (150-450); RBC Distribution Width CV 13.3 % (11.6-14.6); RBC Distribution Width SD 43.5 fl (35.1-43.9); White Blood Count 17.3 K/mm3 (4.4-11.0)
[2022-08-09 08:45] LABS: Anion Gap 7 (5-15); BUN 23 mg/dL (7-18); BUN/Creat Ratio 20.7 RATIO (10-20); Calcium,Total 9.5 mg/dL (8.5-10.1); Chloride 103 mmol/L (98-107); Creatinine, Serum 1.11 mg/dL (0.55-1.02); EST Glomerular Filtration Rate 50 mL/min (>60); Est Glom Filt Rate - Afr Amer 60 mL/min (>60); Glucose 136 mg/dL (74-106); Potassium 3.6 mmol/L (3.5-5.1); Sodium Level 138 mmol/L (136-145)
== END ==
LOC: OLS.SW 05:00
PROVIDERS: PCP Internal Medicine; Visit Provider Internal Medicine
DX: M86.9 Osteomyelitis, unspecified (principal)
CPT/HCPCS: 36415; 80048; 85025; 86140

== ENCOUNTER → 2022-08-13 | Outpatient (REF) | payer MEDICARE, MEDICAID, SELFPAY ==
[2022-08-13 08:57] LABS: Color, Urine Yellow (Yellow); Glucose, Dipstick Normal (Normal); Ketone-Dipstick Negative (Negative); Leukocyte Esterase-Dipstick 500 /ul (Negative); Nitrite-Dipstick Negative (Negative); Occult Blood-Urine 10 /ul (Negative); Protein-Dipstick 15 mg/dl (Negative); Urine Bilirubin Dipstick Negative (Negative); Urine Clarity Cloudy (Clear); Urine Urobilinogen Normal (Normal)
== END ==
LOC: OLS.SW 06:05
PROVIDERS: PCP Internal Medicine; Visit Provider Internal Medicine
DX: D72.829 Elevated white blood cell count, unspecified (principal); J44.9 Chronic obstructive pulmonary disease, unspecified; Z79.899 Other long term (current) drug therapy
CPT/HCPCS: 36415; 81002; 87040; 87077; 87086; 87088; 87186

== ENCOUNTER → 2022-08-16 | Outpatient (REF) | payer MEDICARE, MEDICAID, SELFPAY ==
[2022-08-16 08:59] LABS: Absolute Lymphocyte Count 2.65 X10^3/uL (0.83-4.51); Absolute Neutrophil Count 7.5 X10^3/uL (2.0-7.7); Basophil# 0.02 X10^3/uL; Basophil% 0.2 % (0-1); Eosinophil# 0.31 X10^3/uL; Eosinophils% 2.7 % (0-5); Hematocrit 34.4 % (37-47); Hemoglobin 10.9 g/dL (12.0-15.0); Lymphocyte # 2.65 X10^3/ul (0.83-4.51); Mean Corp Hgb Conc 31.7 g/dL (32-36); Mean Corpuscular Hgb 28.6 pg (27.0-32.0); Mean Corpuscular Volume 90.3 fL (81-99); Mean Platelet Vol. 11.6 fl (6.2-12.0); Monocyte# 0.99 X10^3/uL; Monocyte% 8.6 % (0-10); NRBC Flagged by Analyzer 0 % (0-5); Neutrophil # 7.48 X10^3/uL (2.7-7.7); Platelet Count 314 K/mm3 (150-450); RBC Distribution Width CV 13.5 % (11.6-14.6); RBC Distribution Width SD 44.9 fl (35.1-43.9); Red Blood Count 3.81 M/mm3 (4.2-5.4); White Blood Count 11.5 K/mm3 (4.4-11.0)
[2022-08-16 09:20] LABS: Anion Gap 4 (5-15); BUN 22 mg/dL (7-18); BUN/Creat Ratio 21.2 RATIO (10-20); Calcium,Total 9.3 mg/dL (8.5-10.1); Chloride 102 mmol/L (98-107); Creatinine, Serum 1.04 mg/dL (0.55-1.02); EST Glomerular Filtration Rate 54 mL/min (>60); Est Glom Filt Rate - Afr Amer 65 mL/min (>60); Glucose 175 mg/dL (74-106); Sodium Level 135 mmol/L (136-145)
== END ==
LOC: OLS.SW 05:00
PROVIDERS: PCP Internal Medicine; Visit Provider Internal Medicine
DX: A49.9 Bacterial infection, unspecified (principal); I10 Essential (primary) hypertension
CPT/HCPCS: 36415; 80048; 85025; 86140

== ENCOUNTER → 2022-08-23 | Outpatient (REF) | payer MEDICARE, MEDICAID, SELFPAY ==
[2022-08-23 09:01] LABS: Absolute Lymphocyte Count 2.75 X10^3/uL (0.83-4.51); Absolute Neutrophil Count 4.7 X10^3/uL (2.0-7.7); Basophil# 0.02 X10^3/uL; Basophil% 0.2 % (0-1); Eosinophil# 0.32 X10^3/uL; Eosinophils% 3.7 % (0-5); Hematocrit 37.5 % (37-47); Hemoglobin 11.9 g/dL (12.0-15.0); Lymphocyte # 2.75 X10^3/ul (0.83-4.51); Lymphocyte % 31.8 % (19-41); Mean Corp Hgb Conc 31.7 g/dL (32-36); Mean Corpuscular Hgb 28.5 pg (27.0-32.0); Mean Corpuscular Volume 89.9 fL (81-99); Mean Platelet Vol. 11.4 fl (6.2-12.0); Monocyte# 0.87 X10^3/uL; Monocyte% 10.1 % (0-10); NRBC Flagged by Analyzer 0 % (0-5); Neutrophil # 4.65 X10^3/uL (2.7-7.7); Neutrophil % 53.7 % (47-70); Platelet Count 280 K/mm3 (150-450); RBC Distribution Width CV 13.5 % (11.6-14.6); RBC Distribution Width SD 44.3 fl (35.1-43.9); Red Blood Count 4.17 M/mm3 (4.2-5.4); White Blood Count 8.7 K/mm3 (4.4-11.0)
[2022-08-23 09:17] LABS: Anion Gap 4 (5-15); BUN 18 mg/dL (7-18); BUN/Creat Ratio 17.6 RATIO (10-20); CRP 6.72 mg/L (0.0-3.0); Calcium,Total 9.7 mg/dL (8.5-10.1); Chloride 104 mmol/L (98-107); Creatinine, Serum 1.02 mg/dL (0.55-1.02); EST Glomerular Filtration Rate 55 mL/min (>60); Est Glom Filt Rate - Afr Amer 66 mL/min (>60); Glucose 99 mg/dL (74-106); Potassium 4.2 mmol/L (3.5-5.1); Sodium Level 135 mmol/L (136-145)
== END | disposition home or self-care (01) ==
LOC: OLS.SW 05:00
PROVIDERS: PCP Internal Medicine; Visit Provider Internal Medicine
DX: I10 Essential (primary) hypertension (principal)
CPT/HCPCS: 36415; 80048; 85025; 86140

== ENCOUNTER → 2022-08-30 | Outpatient (REF) | payer MEDICARE, MEDICAID, SELFPAY ==
[2022-08-30 07:43] LABS: Absolute Neutrophil Count 4.1 X10^3/uL (2.0-7.7); Basophil# 0.01 X10^3/uL; Basophil% 0.1 % (0-1); Eosinophils% 3.7 % (0-5); Hematocrit 36.7 % (37-47); Hemoglobin 11.6 g/dL (12.0-15.0); Lymphocyte % 36.2 % (19-41); Mean Corp Hgb Conc 31.6 g/dL (32-36); Mean Corpuscular Hgb 28.2 pg (27.0-32.0); Mean Corpuscular Volume 89.3 fL (81-99); Mean Platelet Vol. 11.6 fl (6.2-12.0); Monocyte% 8.7 % (0-10); NRBC Flagged by Analyzer 0 % (0-5); Neutrophil # 4.08 X10^3/uL (2.7-7.7); Neutrophil % 51.1 % (47-70); Platelet Count 231 K/mm3 (150-450); RBC Distribution Width CV 13.4 % (11.6-14.6); Red Blood Count 4.11 M/mm3 (4.2-5.4)
[2022-08-30 07:54] LABS: Anion Gap 4 (5-15); BUN 21 mg/dL (7-18); CRP 3.77 mg/L (0.0-3.0); Calcium,Total 9.4 mg/dL (8.5-10.1); Chloride 104 mmol/L (98-107); EST Glomerular Filtration Rate 56 mL/min (>60); Est Glom Filt Rate - Afr Amer 68 mL/min (>60); Glucose 106 mg/dL (74-106); Sodium Level 137 mmol/L (136-145)
== END | disposition home or self-care (01) ==
LOC: OLS.SW 05:00
PROVIDERS: PCP Internal Medicine; Visit Provider Internal Medicine
DX: A49.9 Bacterial infection, unspecified (principal); I10 Essential (primary) hypertension
CPT/HCPCS: 36415; 80048; 85025; 86140

== ENCOUNTER → 2022-09-06 | Outpatient (REF) | payer MEDICARE, MEDICAID, SELFPAY ==
[2022-09-06 08:46] LABS: Absolute Lymphocyte Count 2.82 X10^3/uL (0.83-4.51); Absolute Neutrophil Count 4.4 X10^3/uL (2.0-7.7); Basophil# 0.02 X10^3/uL; Basophil% 0.2 % (0-1); Eosinophils% 3.6 % (0-5); Hematocrit 38.3 % (37-47); Lymphocyte # 2.82 X10^3/ul (0.83-4.51); Lymphocyte % 34.1 % (19-41); Mean Corp Hgb Conc 31.3 g/dL (32-36); Mean Corpuscular Volume 89.5 fL (81-99); Mean Platelet Vol. 11.7 fl (6.2-12.0); Monocyte# 0.71 X10^3/uL; Monocyte% 8.6 % (0-10); NRBC Flagged by Analyzer 0 % (0-5); Neutrophil # 4.39 X10^3/uL (2.7-7.7); Neutrophil % 53.1 % (47-70); Platelet Count 238 K/mm3 (150-450); RBC Distribution Width CV 13.6 % (11.6-14.6); RBC Distribution Width SD 44.3 fl (35.1-43.9); Red Blood Count 4.28 M/mm3 (4.2-5.4); White Blood Count 8.3 K/mm3 (4.4-11.0)
[2022-09-06 09:10] LABS: Anion Gap 5 (5-15); BUN 19 mg/dL (7-18); BUN/Creat Ratio 18.8 RATIO (10-20); Calcium,Total 9.7 mg/dL (8.5-10.1); Chloride 105 mmol/L (98-107); Creatinine, Serum 1.01 mg/dL (0.55-1.02); EST Glomerular Filtration Rate 55 mL/min (>60); Est Glom Filt Rate - Afr Amer 67 mL/min (>60); Glucose 135 mg/dL (74-106); Potassium 4.1 mmol/L (3.5-5.1); Sodium Level 137 mmol/L (136-145)
== END ==
LOC: OLS.SW 04:00
PROVIDERS: PCP Internal Medicine; Referring Provider Internal Medicine; Visit Provider Internal Medicine
DX: N18.30 Chronic kidney disease, stage 3 unspecified (principal)
CPT/HCPCS: 36415; 80048; 85025; 86140

== ENCOUNTER → 2022-09-13 | Outpatient (REF) | payer MEDICARE, MEDICAID, SELFPAY ==
[2022-09-13 08:55] LABS: Absolute Lymphocyte Count 3.14 X10^3/uL (0.83-4.51); Absolute Neutrophil Count 6.1 X10^3/uL (2.0-7.7); Basophil# 0.04 X10^3/uL; Basophil% 0.4 % (0-1); Eosinophil# 0.24 X10^3/uL; Eosinophils% 2.3 % (0-5); Hematocrit 37.4 % (37-47); Hemoglobin 11.6 g/dL (12.0-15.0); Lymphocyte # 3.14 X10^3/ul (0.83-4.51); Mean Corpuscular Hgb 26.7 pg (27.0-32.0); Mean Platelet Vol. 11.3 fl (6.2-12.0); Monocyte# 0.89 X10^3/uL; Monocyte% 8.5 % (0-10); NRBC Flagged by Analyzer 0 % (0-5); Neutrophil # 6.11 X10^3/uL (2.7-7.7); Neutrophil % 58.3 % (47-70); Platelet Count 280 K/mm3 (150-450); RBC Distribution Width CV 15.5 % (11.6-14.6); RBC Distribution Width SD 48.6 fl (35.1-43.9); Red Blood Count 4.35 M/mm3 (4.2-5.4); White Blood Count 10.5 K/mm3 (4.4-11.0)
[2022-09-13 09:25] LABS: Anion Gap 6 (5-15); BUN 18 mg/dL (7-18); BUN/Creat Ratio 18.1 RATIO (10-20); CRP 6.16 mg/L (0.0-3.0); Calcium,Total 9.4 mg/dL (8.5-10.1); Chloride 105 mmol/L (98-107); Creatinine, Serum 0.99 mg/dL (0.55-1.02); EST Glomerular Filtration Rate 56 mL/min (>60); Est Glom Filt Rate - Afr Amer 68 mL/min (>60); Glucose 86 mg/dL (74-106); Potassium 4.3 mmol/L (3.5-5.1); Sodium Level 132 mmol/L (136-145)
== END ==
LOC: OLS.SW 05:00
PROVIDERS: PCP Internal Medicine; Visit Provider Internal Medicine
DX: A49.9 Bacterial infection, unspecified (principal); I10 Essential (primary) hypertension
CPT/HCPCS: 36415; 80048; 85025; 86140

== ENCOUNTER → 2022-09-20 | Outpatient (REF) | payer MEDICARE, MEDICAID, SELFPAY ==
[2022-09-20 09:30] LABS: Absolute Lymphocyte Count 3.02 X10^3/uL (0.83-4.51); Absolute Neutrophil Count 5.5 X10^3/uL (2.0-7.7); Basophil# 0.02 X10^3/uL; Basophil% 0.2 % (0-1); Eosinophil# 0.35 X10^3/uL; Eosinophils% 3.6 % (0-5); Hematocrit 39.7 % (37-47); Hemoglobin 12.4 g/dL (12.0-15.0); Lymphocyte # 3.02 X10^3/ul (0.83-4.51); Lymphocyte % 31.1 % (19-41); Mean Corp Hgb Conc 31.2 g/dL (32-36); Mean Corpuscular Hgb 28.2 pg (27.0-32.0); Mean Corpuscular Volume 90.2 fL (81-99); Mean Platelet Vol. 11.3 fl (6.2-12.0); Monocyte# 0.84 X10^3/uL; Monocyte% 8.6 % (0-10); NRBC Flagged by Analyzer 0 % (0-5); Neutrophil # 5.45 X10^3/uL (2.7-7.7); Neutrophil % 56.1 % (47-70); Platelet Count 278 K/mm3 (150-450); RBC Distribution Width CV 13.3 % (11.6-14.6); RBC Distribution Width SD 44.2 fl (35.1-43.9); White Blood Count 9.7 K/mm3 (4.4-11.0)
[2022-09-20 09:47] LABS: Anion Gap 6 (5-15); BUN 20 mg/dL (7-18); BUN/Creat Ratio 19.4 RATIO (10-20); CRP 6.78 mg/L (0.0-3.0); Calcium,Total 9.5 mg/dL (8.5-10.1); Chloride 104 mmol/L (98-107); Creatinine, Serum 1.03 mg/dL (0.55-1.02); EST Glomerular Filtration Rate 54 mL/min (>60); Est Glom Filt Rate - Afr Amer 65 mL/min (>60); Glucose 118 mg/dL (74-106); Sodium Level 139 mmol/L (136-145)
== END ==
LOC: OLS.SW 04:00
PROVIDERS: PCP Internal Medicine; Referring Provider Internal Medicine; Visit Provider Internal Medicine
DX: I10 Essential (primary) hypertension (principal)
CPT/HCPCS: 36415; 80048; 85025; 86140

== ENCOUNTER → 2022-09-27 | Outpatient (REF) | payer MEDICARE, MEDICAID, SELFPAY ==
[2022-09-27 09:29] LABS: Absolute Lymphocyte Count 3.51 X10^3/uL (0.83-4.51); Absolute Neutrophil Count 5.3 X10^3/uL (2.0-7.7); Basophil# 0.03 X10^3/uL; Basophil% 0.3 % (0-1); Hematocrit 38.6 % (37-47); Hemoglobin 12.2 g/dL (12.0-15.0); Lymphocyte # 3.51 X10^3/ul (0.83-4.51); Lymphocyte % 34.6 % (19-41); Mean Corp Hgb Conc 31.6 g/dL (32-36); Mean Corpuscular Volume 88.7 fL (81-99); Mean Platelet Vol. 11.5 fl (6.2-12.0); Monocyte# 0.98 X10^3/uL; Monocyte% 9.7 % (0-10); NRBC Flagged by Analyzer 0 % (0-5); Neutrophil # 5.29 X10^3/uL (2.7-7.7); Neutrophil % 52.1 % (47-70); Platelet Count 284 K/mm3 (150-450); RBC Distribution Width CV 13.3 % (11.6-14.6); RBC Distribution Width SD 43.5 fl (35.1-43.9); Red Blood Count 4.35 M/mm3 (4.2-5.4); White Blood Count 10.1 K/mm3 (4.4-11.0)
[2022-09-27 09:41] LABS: Anion Gap 3 (5-15); BUN 16 mg/dL (7-18); BUN/Creat Ratio 17.7 RATIO (10-20); CRP 7.75 mg/L (0.0-3.0); Calcium,Total 9.5 mg/dL (8.5-10.1); Chloride 104 mmol/L (98-107); EST Glomerular Filtration Rate 63 mL/min (>60); Est Glom Filt Rate - Afr Amer 76 mL/min (>60); Glucose 74 mg/dL (74-106); Potassium 3.7 mmol/L (3.5-5.1); Sodium Level 136 mmol/L (136-145)
== END ==
LOC: OLS.SW 05:00
PROVIDERS: PCP Internal Medicine; Visit Provider Internal Medicine
DX: N17.9 Acute kidney failure, unspecified (principal); I10 Essential (primary) hypertension
CPT/HCPCS: 36415; 80048; 85025; 86140

== ENCOUNTER → 2022-10-04 | Outpatient (REF) | payer MEDICARE, MEDICAID, SELFPAY ==
[2022-10-04 09:28] LABS: Absolute Lymphocyte Count 2.72 X10^3/uL (0.83-4.51); Absolute Neutrophil Count 5.7 X10^3/uL (2.0-7.7); Basophil# 0.02 X10^3/uL; Basophil% 0.2 % (0-1); Eosinophil# 0.23 X10^3/uL; Eosinophils% 2.5 % (0-5); Hematocrit 38.3 % (37-47); Hemoglobin 12.3 g/dL (12.0-15.0); Lymphocyte # 2.72 X10^3/ul (0.83-4.51); Lymphocyte % 29.3 % (19-41); Mean Corp Hgb Conc 32.1 g/dL (32-36); Mean Corpuscular Hgb 28.3 pg (27.0-32.0); Mean Corpuscular Volume 88.2 fL (81-99); Mean Platelet Vol. 11.5 fl (6.2-12.0); Monocyte# 0.64 X10^3/uL; Monocyte% 6.9 % (0-10); NRBC Flagged by Analyzer 0 % (0-5); Neutrophil # 5.65 X10^3/uL (2.7-7.7); Neutrophil % 60.9 % (47-70); Platelet Count 250 K/mm3 (150-450); RBC Distribution Width CV 13.2 % (11.6-14.6); RBC Distribution Width SD 43.3 fl (35.1-43.9); Red Blood Count 4.34 M/mm3 (4.2-5.4); White Blood Count 9.3 K/mm3 (4.4-11.0)
[2022-10-04 09:31] LABS: Hemoglobin A1c 7.1 % (3.8-5.6)
[2022-10-04 09:40] LABS: Anion Gap 8 (5-15); BUN 15 mg/dL (7-18); BUN/Creat Ratio 16.9 RATIO (10-20); CRP 3.67 mg/L (0.0-3.0); Calcium,Total 9.3 mg/dL (8.5-10.1); Chloride 103 mmol/L (98-107); Creatinine, Serum 0.89 mg/dL (0.55-1.02); EST Glomerular Filtration Rate 64 mL/min (>60); Est Glom Filt Rate - Afr Amer 78 mL/min (>60); Glucose 154 mg/dL (74-106); Potassium 4.5 mmol/L (3.5-5.1); Sodium Level 140 mmol/L (136-145)
== END ==
LOC: OLS.SW 05:00
PROVIDERS: PCP Internal Medicine; Visit Provider Internal Medicine
DX: E11.9 Type 2 diabetes mellitus without complications (principal); I10 Essential (primary) hypertension
CPT/HCPCS: 36415; 80048; 83036; 85025; 86140

== ENCOUNTER → 2022-10-27 05:00 | Outpatient (REF) | payer MEDICARE, MEDICAID, SELFPAY ==
[2022-10-27 09:55] LABS: T4 Total, Thyroxin 14.5 ug/dL (4.8-13.9); Thyroid Stim Hormone (TSH) 1.73 uIU/mL (0.358-3.74)
== END ==
LOC: OLS.SW 05:00
PROVIDERS: PCP Internal Medicine; Visit Provider Internal Medicine
DX: E03.9 Hypothyroidism, unspecified (principal)
CPT/HCPCS: 36415; 84436; 84443

== ENCOUNTER → 2023-01-04 07:20 | Outpatient (REF) | payer MEDICARE, MEDICAID, SELFPAY ==
[2023-01-04 09:16] LABS: BNP,B-Type NATRIURETIC PEPTIDE 435.4 pg/mL (0-100)
[2023-01-04 12:25] LABS: Hematocrit 40.8 % (37-47); Hemoglobin 13.1 g/dL (12.0-15.0); Mean Corp Hgb Conc 32.1 g/dL (32-36); Mean Corpuscular Hgb 27.9 pg (27.0-32.0); Mean Platelet Vol. 12.1 fl (6.2-12.0); Platelet Count 292 K/mm3 (150-450); RBC Distribution Width CV 14.8 % (11.6-14.6); Red Blood Count 4.69 M/mm3 (4.2-5.4); White Blood Count 21.7 K/mm3 (4.4-11.0)
== END ==
LOC: OLS.SW 07:20
PROVIDERS: PCP Internal Medicine; Visit Provider Internal Medicine
DX: E11.9 Type 2 diabetes mellitus without complications (principal)
CPT/HCPCS: 36415; 83880; 85027

== ENCOUNTER → 2023-01-05 | Outpatient (CLI) | payer MEDICARE, MEDICAID, SELFPAY ==
--- NOTE | 2023-01-05 09:18 | ADUL_ITS ---
Reason For Study: HX LLE Angioplasty Left Velocities Ext Iliac Artery, dist = 67.8 cm./sec. Common Femoral Artery, mid = 94.8 cm./sec. Lt SFA Prox (bifurcation) = 173.4 cm/sec. Lt SFA prox pre stenosis: 49cm/s Lt SFA prox stenosis: 329.7cm/s Lt SFA prox post stenosis: 59.2cm/s. Supf. Femoral Artery, mid = 58.1 cm./sec. Supf. Femoral Artery, dist = 68 cm./sec. Profunda Femoral Artery = 67.4 cm./sec. Popliteal Artery, prox = 30.7 cm./sec. Popliteal Artery, dist = 39.5 cm./sec. Ant.Tibial Artery, prox = 28.4 cm./sec. Ant Tibial Artery, mid = 18.4 cm./sec. Ant. Tibial Artery, distal = 19.9 cm./sec. Post. Tibial Artery, prox = 30.7 cm./sec. Post Tibial Artery, mid = 30.5 cm./sec. Post Tibial Artery, dist. = 37.6 cm./sec. Peroneal Artery, prox = 22.7 cm/sec Peroneal Artery, mid = 15.6 cm/sec Peroneal Artery,dist. = 7.0 cm./sec. /US Art Duplex Unilat Lower Ext Interpretation Summary Left SFA with >50% stenosis. Dampened waveforms distal to stenosis. Ordering Physician: Jolanta Morgan Referring Physician: Billie De Leon Performed By: Preston Green RVT
--- NOTE | 2023-01-05 09:18 | ART_ITS ---
Reason For Study: HX LLE Angioplasty Procedure A bilateral lower extremity continuous wave Doppler with analog waveform analysis and ankle brachial indexes. Left Segmental Pressures Left brachial= 175mmHg. Left posterior tibial artery = 157mmHg. Left dorsalis pedis artery = 123mmHg. Left digit = 84 mmHg. The left posterior tibial artery waveforms are biphasic. The left dorsalis pedis waveforms are biphasic. Right Segmental Pressures Right brachial= 167mmHg. Right posterior tibial artery = 96mmHg. Right dorsalis pedis artery = 94mmHg. Right digit = 61 mmHg. The right posterior tibial artery waveforms are biphasic. The right dorsalis pedis waveforms are monophasic. Indices The right ankle brachial index by the posterior tibial artery is 0.55. The right ankle brachial index by the dorsalis pedis is 0.54. The right digital-brachial index is 0.35. The left ankle brachial index by the posterior tibial artery is 0.90. The left ankle brachial index by the dorsalis pedis is 0.70. The left digital-brachial index is 0.48. VL/Ankle Brachial Index Interpretation Summary Right DAVION 0.55, severe arterial insufficiency. Doppler/PVR waveforms of the rig ht ankle severely diminished at rest. Left DAVION 0.9, mild arterial insufficiency. Doppler/PVR waveforms of the left an kle mildly diminished at rest. Ordering Physician: Jolanta Morgan Referring Physician: Billie De Leon Performed By: Preston Green RVT
== END | disposition home or self-care (01) ==
LOC: CVS 09:16
PROVIDERS: PCP Internal Medicine; Referring Provider Physician Assistant; Visit Provider Physician Assistant
DX: Z48.812 Encounter for surgical aftercare following surgery on the circulatory system (principal); I70.25 Atherosclerosis of native arteries of other extremities with ulceration
CPT/HCPCS: 93922; 93926

== ENCOUNTER 2023-01-07 12:07 | Emergency (ER) | payer MEDICARE, MEDICAID, SELFPAY ==
[2023-01-07 12:08] VITALS: BP 182/74; PULSE 89; RESP 16; TEMP 36.4; O2SAT 96; BMI 29.2
--- NOTE | 2023-01-07 12:32 | EDS_ITS ---
HPI History of Present Illness Chief Complaint: Nausea/Vomiting Informant: patient Narrative Narrative: 87-year-old female from [facility] presenting to the emergency room with nausea vomiting right lower quadrant abdominal pain. Patient states that she has had nausea vomiting over the past couple days. She does not recall exactly when her abdominal pain started but points to the right lower quadrant. She states that she has been taking her medications but has not had anything to eat today. Per assisted paperwork she received IV fluids through a PICC line yesterday and today as well as IV Rocephin which presumably was for urine infection based on the UA from 05 January. The urine culture is not yet resulted. Prior UTI/urine culture earlier this year demonstrate E. coli. Sensitivities were reviewed. Yesterday she had blood work drawn that showed a white count of 13 and a potassium of 2.8. Patient states she has been [facility] for 1 month but is not exactly sure why she is there. Per nursing report, I was informed that the patient had a blood pressure today of 112 systolic and an elevated heart rate. PFSH PFSH Medical History Carotid artery occlusion Cerebral infarct COPD (chronic obstructive pulmonary disease) Dementia Depression Diabetes Former smoker Gastric reflux GERD (gastroesophageal reflux disease) Hearing loss History of heart attack History of renal disease Hyperlipemia Hypertension Kidney disease Normocytic anemia Obesity Osteomyelitis Osteomyelitis Pressure ulcer Thyroid disease UTI (urinary tract infection) Weakness Wound of left ankle Home Medications clopidogrel 75 mg tablet 75 mg PO DAILY 08/22/21 [History Last Taken 02/23/22] atorvastatin 20 mg tablet 20 mg PO QHS Cholesterol 10/24/21 [History Last Taken 02/22/22] pantoprazole 40 mg tablet,delayed release 40 mg PO QHS GERD 10/24/21 [History Last Taken 02/22/22] acetaminophen 500 mg tablet 1,000 mg (2 x 500 mg) PO Q6H PRN PRN Pain Score 1-3 #0 tabs 11/12/21 [Rx Last Taken 02/20/22] ascorbic acid (vitamin C) 500 mg tablet (Vitamin C) 500 mg PO DAILY 12/08/21 [History Last Taken 02/23/22] nystatin 100,000 unit/gram topical powder (Nyamyc) 1 applic topical TID 12/08/21 [History Last Taken 02/23/22] insulin glargine-yfgn 100 unit/mL (3 mL) subcutaneous pen 26 unit subcut QHS [History Last Taken 02/22/22] insulin lispro 100 unit/mL subcutaneous pen See Protocol subcut ACHS 01/13/22 [History Last Taken 02/23/22] sennosides 8.6 mg-docusate sodium 50 mg tablet (Stool Softener-Stimulant Laxative) 1 tab PO BID CONSTIPATION 01/13/22 [History Last Taken 02/23/22] tramadol 50 mg tablet 50 mg PO Q8H PRN PRN Pain Score 1-10 01/13/22 [History Last Taken 02/22/22] furosemide 20 mg tablet (Lasix) 20 mg PO DAILY 02/16/22 [History Last Taken 02/23/22] insulin lispro 100 unit/mL subcutaneous pen (Humalog KwikPen (U-100) Insulin) 10 unit subcut TIDAC DM 02/16/22 [History Last Taken 02/23/22] collagenase clostridium histo. 250 unit/gram topical ointment (Santyl) 1 applic topical QHS LEFT HEEL WOUND 02/23/22 [History Last Taken 02/22/22] levothyroxine 88 mcg tablet 88 mcg PO DAILY THYROID 02/23/22 [History Last Taken 02/23/22] multivitamin 1 tab PO DAILY HEALTH MAINTENANCE 02/23/22 [History Last Taken 02/23/22] polysaccharide iron complex 150 mg iron capsule (Ferrex) 150 mg PO DAILY ANEMIA 02/23/22 [History Last Taken 02/23/22] dulaglutide 1.5 mg/0.5 mL subcutaneous pen injector (Trulicity) 3 mg subcut WE DM 04/06/22 [History Last Taken Unknown] losartan 50 mg tablet 25 mg PO DAILY BP 04/06/22 [History Last Taken Unknown] midodrine 5 mg tablet 5 mg PO BID 04/06/22 [History Last Taken Unknown] bisacodyl 10 mg rectal suppository 10 mg ND DAILY PRN Constipation 04/23/22 [History Last Taken Unknown] guaifenesin 100 mg/5 mL oral liquid 200 mg PO Q4H PRN PRN Cough 04/23/22 [History Last Taken Unknown] insulin lispro 100 unit/mL subcutaneous pen (Humalog KwikPen (U-100) Insulin) 5 unit subcut DAILY 04/23/22 [History Last Taken Unknown] potassium chloride 40 mEq/15 mL oral liquid 40 meq (15 mL) PO DAILY 5 days #75 mL 01/07/23 [Rx Last Taken Unknown] Allergy/AdvReac Type Severity Reaction Status Date / Time banana Allergy Hives Verified 01/07/23 12:08 peanut Allergy Hives Verified 01/07/23 12:08 Penicillins Allergy Other Verified 01/07/23 12:08 Sulfa (Sulfonamide Allergy Swelling Verified 01/07/23 12:08 Antibiotics) Surgical History Status post open reduction with internal fixation (ORIF) of fracture of ankle Social History household members: none housing: assisted living facility Smoking Status: Former smoker alcohol intake: never substance use type: does not use ROS ROS ED Constitutional Constitutional ED: Reports other Details: Generalized weakness ; Denies chills or weight loss Eyes Eyes: Reports other; Denies change in vision or diplopia ENT ENT ED: Denies ear pain, rhinorrhea or sore throat Cardiovascular Cardiovascular: Denies chest pain, orthopnea, palpitations or racing heartbeat Respiratory/Chest Respiratory/Chest: Denies cough, dyspnea or orthopnea Gastrointestinal Gastrointestinal: Reports abdominal pain, nausea and vomiting; Denies diarrhea Genitourinary Genitourinary ED: Denies dysuria, hematuria or urinary frequency Musculoskeletal Musculoskeletal: Denies arthralgias or myalgias Integumentary Denies abscess or rash Neurologic Neurologic: Denies headache(s) or weakness Psychiatric Psychiatric: Denies anxiety, depression, suicidal ideation or suicidal thoughts Endocrine Endocrinology: Denies polydipsia, polyphagia or polyuria Allergic/Immunologic Allergic/Immunologic ED: Denies mouth swelling, tongue swelling or urticaria EXAM Physical Exam Const Vital Signs: 01/07/23 12:08 01/07/23 14:07 01/07/23 14:27 Temperature 97.6 F L Temperature Source Temporal Pulse Rate 89 95 93 Respiratory Rate 16 12 12 Blood Pressure 182/74 H 186/66 H 187/73 H Blood Pressure Mean 110 106 111 Pulse Ox 96 98 97 Oxygen Delivery Method Room Air Room Air 01/07/23 15:10 Temperature Temperature Source Pulse Rate 94 Respiratory Rate 16 Blood Pressure 146/68 H Blood Pressure Mean Pulse Ox 98 Oxygen Delivery Method Positive well nourished, well developed and obese General Appearance ED: well developed Nutritional Appearance: obese HEENT Reports normocephalic, head/scalp atraumatic and moist mucous membranes Eyes PERRL and EOMs intact bilaterally Neck no lymphadenopathy, supple and no JVD Resp normal respiratory effort and clear to auscultation bilaterally Cardio regular rate, regular rhythm and no murmurs GI non-distended Inspection: Negative for abdominal distention Auscultation: normoactive bowel sounds Palpation: soft and tender RLQ; Negative for guarding Back/Spine no CVA tenderness and normal ROM Extremity normal to inspection General Extremety ED: Negative for edema General Extremity: Negative for edema Neuro oriented x3 and CN's II-XII intact bilaterally Sensorium / Orientation: alert Motor Exam: strength 5/5 throughout Psych mental status grossly normal Mood & Affect: Negative for depressed or tearful Skin no rashes or lesions noted and no wounds MDM MDM MDM Narrative Medical decision making narrative: White count is elevated at 15.6. Potassium low at 3 BUN of 28 with creatinine 1.05. Urinalysis overtly infected now nitrate and leukocyte Estrace positive. Urine culture obtained again. Lactic acid is normal at 0.9. She is not tachycardic she is not hypotensive. She is alert and oriented x2. Which appears to be her baseline per assisted. CT abdomen pelvis demonstrates distended gallbladder however on my examination she has no right upper quadrant tenderness. I put the ultrasound on her abdomen and identified the gallbladder pushed on it and it is not tender. Her tenderness is in the right lower quadrant and is mild at best without any guarding or rebound. She has been vivek erating p.o. fluids and we administered oral potassium which she was able to keep down. We administered a dose of IV Rocephin. Patient was able to have a urination although she was incontinent. She did not appear to have a distended bladder after voiding. At this point patient I believe can be treated at the assisted. She has a PICC line and can receive artificial hydration as well as IV antibiotics. Oral potassium can be replaced. I am not seeing a definitive reason for the patient to require admission into the hospital. We are not yet at 24 hours of antibiotics. Patient may require repeat visits to the ED should she worsen. Lab Data Attestation: I reviewed the patient's lab results. Labs: Laboratory Results - last 24 hr 01/07/23 01/07/23 01/07/23 12:40 12:50 13:37 WBC 15.6 H RBC 4.82 Hgb 13.7 Hct 41.5 MCV 86.1 MCH 28.4 MCHC 33.0 RDW Std Deviation 44.6 H RDW Coeff of Suzy 14.1 Plt Count 295 MPV 11.2 Immature Gran % (Auto) 1.300 H Neut % (Auto) 77.5 H Lymph % (Auto) 15.2 L [place] % (Auto) 5.3 Eos % (Auto) 0.4 Baso % (Auto) 0.3 Absolute Neuts (auto) 12.1 H Absolute Lymphs (auto) 2.37 Nucleated RBC % 0 Sodium 132 L Potassium 3.0 L Chloride 95 L Carbon Dioxide 30.0 Anion Gap 7 BUN 28 H Creatinine 1.05 H Estim Creat Clear Calc 30.98 Est GFR (MDRD) Af Amer 64 Est GFR (MDRD) Non-Af 53 L BUN/Creatinine Ratio 26.7 H Glucose 127 H Lactic Acid 0.9 Calcium 9.1 Total Bilirubin 0.90 Direct Bilirubin 0.54 H AST 38 H ALT 116 H Alkaline Phosphatase 151 H Total Protein 6.9 Albumin 3.0 L Globulin 3.9 Lipase 28 Urine Color Yellow Urine Clarity Sl. Cloudy Urine pH 6.0 Ur Specific [place] 1.010 Urine Protein Negative Urine Glucose (UA) Normal Urine Ketones Negative Urine Occult Blood 50 H Urine Nitrite Positive H Urine Bilirubin Negative Urine Urobilinogen Normal Ur Leukocyte Esterase 500 H Urine RBC 0-5 SEEN Urine WBC 25-50 SEEN Ur Squamous Epith Cells 0-5 SEEN Urine Bacteria 2+ Urine Mucus 0 SEEN Radiography Diagnostic Testing: Clinical Impression(s) from Imaging Studies Abdomen/Pelvis CT 01/07/23 13:31 IMPRESSION: Distention of the gallbladder with dilatation of the common bile duct. No definite calculus is seen within the gallbladder lumen. Tiny amount of air in the anterior aspect of the urinary bladder. Sigmoid diverticulosis. Electronically Signed: Ton Rod MD at 14:17 EDT , Discharge Plan Triage Chief Complaint: Nausea/Vomiting ED Provider: Pal Knox Dx/Rx/DC Orders Clinical Impression: Acute UTI, Vomiting, Acute hypokalemia, Essential hypertension Instructions: Hypertension Dc, Hypokalemia Dc, ED Vomiting (Adult) Prescriptions: New potassium chloride 40 mEq/15 mL liquid 40 meq PO DAILY 5 Days Qty: 75 0RF No Action midodrine 5 mg tablet 5 mg PO BID Rx Instructions: one tab by mouth every morning and at bedtime for hypotension hold BP>130/90 clopidogrel 75 mg tablet 75 mg PO DAILY atorvastatin 20 mg Tablet 20 mg PO QHS pantoprazole 40 mg Tablet,Delayed Release (Dr/Ec) 40 mg PO QHS acetaminophen 500 mg Tablet 1,000 mg PO Q6H PRN PRN (Reason: Pain Score 1-3) Qty: 0 0RF ascorbic acid (vitamin C) [Vitamin C] 500 mg Tablet 500 mg PO DAILY nystatin [Nyamyc] 100,000 unit/gram powder 1 applic topical TID Protocol: *Topical Application Instructions APPLICATION INSTRUCTIONS: Apply to Groin and under breast insulin lispro 100 unit/mL Insulin Pen See Protocol SUBCUT ACHS Protocol: 6. Sliding Scale Insulin Custom Condition: 180-200 Dose/Route: 2 Condition: 201-250 Dose/Route: 3 Condition: 251-300 Dose/Route: 4 Condition: 301-350 Dose/Route: 5 Condition: 351-400 Dose/Route: 6 Condition: 401-450 Dose/Route: 7 Protocol Text: Custom Sliding Scale sennosides-docusate sodium [Stool Softener-Stimulant Laxat] 8.6-50 mg tablet 1 tab PO BID tramadol 50 mg tablet 50 mg PO Q8H PRN PRN (Reason: Pain Score 1-10) insulin glargine-yfgn 100 unit/mL (3 mL) insulin pen 26 unit subcut QHS furosemide [Lasix] 20 mg Tablet 20 mg PO DAILY insulin lispro [Humalog KwikPen Insulin] 100 unit/mL insulin pen 10 unit subcut TIDAC multivitamin Tablet 1 tab PO DAILY levothyroxine 88 mcg tablet 88 mcg PO DAILY Santyl 250 unit/gram Ointment 1 applic TOPICAL QHS polysaccharide iron complex [Ferrex 150] 150 mg iron capsule 150 mg PO DAILY Trulicity 1.5 mg/0.5 mL pen injector 3 mg SUBCUT WE Rx Instructions: EVERY TUESDAY losartan 50 mg tablet 25 mg PO DAILY guaifenesin 100 mg/5 mL Liquid 200 mg PO Q4H PRN PRN (Reason: Cough) bisacodyl 10 mg Suppository 10 mg ND DAILY PRN (Reason: Constipation) insulin lispro [Humalog KwikPen Insulin] 100 unit/mL insulin pen 5 unit SUBCUT DAILY Primary Care Provider: Billie De Leon Referrals: Billie De Leon MD [Primary Care Provider] - Activity Restrictions/Additional Instructions: Urine culture has not yet been returned. I would continue Rocephin antibiotics as previously prescribed Potassium supplementation as prescribed Continued IV hydration. At this time her gallbladder is nontender and does not appear acutely infected. She does not appear to have sepsis. She has been tolerating p.o. here in the department. Disposition Disposition: Home, Self Care
[2023-01-07] MEDS: Ondansetron 4 MG/2 ML Vial IV (12:41)
[2023-01-07 12:49] LABS: Absolute Lymphocyte Count 2.37 X10^3/uL (0.83-4.51); Absolute Neutrophil Count 12.1 X10^3/uL (2.0-7.7); Basophil# 0.05 X10^3/uL; Basophil% 0.3 % (0-1); Eosinophil# 0.06 X10^3/uL; Eosinophils% 0.4 % (0-5); Hematocrit 41.5 % (37-47); Hemoglobin 13.7 g/dL (12.0-15.0); Lymphocyte # 2.37 X10^3/ul (0.83-4.51); Lymphocyte % 15.2 % (19-41); Mean Corpuscular Hgb 28.4 pg (27.0-32.0); Mean Corpuscular Volume 86.1 fL (81-99); Mean Platelet Vol. 11.2 fl (6.2-12.0); Monocyte# 0.82 X10^3/uL; Monocyte% 5.3 % (0-10); NRBC Flagged by Analyzer 0 % (0-5); Neutrophil # 12.09 X10^3/uL (2.7-7.7); Neutrophil % 77.5 % (47-70); Platelet Count 295 K/mm3 (150-450); RBC Distribution Width CV 14.1 % (11.6-14.6); RBC Distribution Width SD 44.6 fl (35.1-43.9); Red Blood Count 4.82 M/mm3 (4.2-5.4); White Blood Count 15.6 K/mm3 (4.4-11.0)
[2023-01-07 12:55] LABS: Mucous, Urine 0 SEEN /hpf (<or=2+)
[2023-01-07 12:59] LABS: Color, Urine Yellow (Yellow); Glucose, Dipstick Normal (Normal); Ketone-Dipstick Negative (Negative); Leukocyte Esterase-Dipstick 500 /ul (Negative); Nitrite-Dipstick Positive (Negative); Occult Blood-Urine 50 /ul (Negative); Protein-Dipstick Negative (Negative); Urine Bilirubin Dipstick Negative (Negative); Urine Clarity Sl. Cloudy (Clear); Urine Urobilinogen Normal (Normal)
[2023-01-07 13:10] LABS: Bacteria 2+ /hpf (None Seen); Red Blood Cells-Urine 0-5 SEEN /hpf (0-5); Squamous Epithelial Cells - UA 0-5 SEEN /hpf (5-10); White Blood Cells 25-50 SEEN /hpf (0-5)
[2023-01-07 13:25] LABS: AST(SGOT) 38 U/L (15-37); Alanine Aminotransfer ALT/SGPT 116 U/L (13-56); Alkaline Phosphatase 151 U/L (45-117); Anion Gap 7 (5-15); BUN 28 mg/dL (7-18); BUN/Creat Ratio 26.7 RATIO (10-20); Bilirubin, Direct 0.54 mg/dL (0.00-0.30); Calcium,Total 9.1 mg/dL (8.5-10.1); Chloride 95 mmol/L (98-107); Creatinine, Serum 1.05 mg/dL (0.55-1.02); EST Glomerular Filtration Rate 53 mL/min (>60); Est Glom Filt Rate - Afr Amer 64 mL/min (>60); Estimated Creatinine Clearance 30.98 ml/min; Globulin 3.9 g/dL (2.2-4.2); Glucose 127 mg/dL (74-106); Lipase 28 U/L (13-75); Protein, Total 6.9 g/dL (6.4-8.2); Sodium Level 132 mmol/L (136-145)
--- NOTE | 2023-01-07 13:31 | CT_ITS ---
STUDY: CT ABDOMEN AND PELVIS WITH CONTRAST REASON FOR EXAM: Female, 87 years old. Abdominal pain RADIATION DOSAGE (If Supplied By Facility): CTDIvol = ( 11.55 ) mGy, DLP = ( 833.44 ) mGycm TECHNIQUE: Transaxial images were obtained from the dome of the diaphragm to the symphysis pubis without oral contrast. IV 75mL Isovue-300 was administered. Sagittal and coronal images were reconstructed. Individualized dose optimization techniques were used for this CT. COMPARISON: Comparison is made with prior study dated November 02, 2021. FINDINGS: Minimal right basilar atelectasis and/or infiltrate. Coronary artery calcification. There is decreased attenuation of the liver consistent with steatosis. There is distention of the gallbladder. The common bile duct is dilated measuring 1.1 cm in its distal portion. Normal spleen. There is diffuse atrophy of the pancreas. There is a small, circumscribed, smooth, low attenuation left adrenal mass, consistent with an adrenal adenoma. This is unchanged. Normal right adrenal gland. Normal right kidney. Normal left kidney. Normal visualized stomach. Normal small intestine. There are multiple colonic diverticula consistent with diverticulosis. There is non-visualization of the appendix. There is atherosclerotic calcification of the abdominal aorta and its major visceral branches, without a demonstrated aneurysm. Normal inferior vena cava. Normal retroperitoneum. A tiny amount of air is seen along the anterior aspect of the urinary bladder. This may represent recent manipulation with Murry catheter. If not, a colovesical fistula should be ruled out. There is absence of the uterus consistent with a prior hysterectomy. Normal abdominal wall. 50% loss of height of the L2 vertebrae. Spur formation at the L1-L2 and L5-S1 levels. CT/Abdomen/Pelvis W IV Cont ONLY IMPRESSION: Distention of the gallbladder with dilatation of the common bile duct. No definite calculus is seen within the gallbladder lumen. Tiny amount of air in the anterior aspect of the urinary bladder. Sigmoid diverticulosis. Electronically Signed: Ton Rod MD at 14:17 EDT ,
[2023-01-07 14:07] VITALS: BP 186/66; PULSE 95; RESP 12; O2SAT 98
[2023-01-07] MEDS: Potassium Chloride Oral Soln 20 MEQ/15 ML UDC 40 MEQ PO (14:07)
[2023-01-07] MEDS: Ceftriaxone 1 GM/50 ML BAG IV (14:08)
[2023-01-07 14:18] LABS: Lactic Acid 0.9 mmol/L (0.4-1.9)
[2023-01-07 14:27] VITALS: BP 187/73; PULSE 93; RESP 12; O2SAT 97
[2023-01-07] MEDS: hydrALAZINE 20 MG/ML Vial 10 MG IV (14:49)
[2023-01-07 15:10] VITALS: BP 146/68; PULSE 94; RESP 16; O2SAT 98
[2023-01-07 16:11] VITALS: BP 149/49
--- NOTE | 2023-01-07 16:13 | ED.RN ---
Eveline Grande called and report given.
== END 2023-01-07 16:30 | disposition home or self-care (01) ==
PROVIDERS: Emergency Provider Emergency Medicine; PCP Internal Medicine; Visit Provider Emergency Medicine
DX: N39.0 Urinary tract infection, site not specified (principal); J44.9 Chronic obstructive pulmonary disease, unspecified; E11.9 Type 2 diabetes mellitus without complications; Z79.4 Long term (current) use of insulin; R11.2 Nausea with vomiting, unspecified; E78.5 Hyperlipidemia, unspecified; E87.6 Hypokalemia; I10 Essential (primary) hypertension; Z87.891 Personal history of nicotine dependence; Z79.02 Long term (current) use of antithrombotics/antiplatelets; Z79.899 Other long term (current) drug therapy; K21.9 Gastro-esophageal reflux disease without esophagitis; E07.9 Disorder of thyroid, unspecified; Z79.85 Long-term (current) use of injectable non-insulin antidiabetic drugs
CPT/HCPCS: 74177; 80048; 80076; 81001; 83605; 83690; 85025; 87077; 87086; 87088; 87186; 96365; 96375; 99285; J7030; P9612; Q9967; A4216; J2405

== ENCOUNTER → 2023-02-07 | Outpatient (REF) | payer MEDICARE, MEDICAID, SELFPAY ==
[2023-02-07 07:41] LABS: Hemoglobin 11.9 g/dL (12.0-15.0); Mean Corp Hgb Conc 31.3 g/dL (32-36); Mean Corpuscular Hgb 28.9 pg (27.0-32.0); Mean Corpuscular Volume 92.2 fL (81-99); Mean Platelet Vol. 11.3 fl (6.2-12.0); Platelet Count 351 K/mm3 (150-450); RBC Distribution Width CV 14.4 % (11.6-14.6); RBC Distribution Width SD 48.8 fl (35.1-43.9); Red Blood Count 4.12 M/mm3 (4.2-5.4)
[2023-02-07 08:28] LABS: ALB/GLOB Ratio 0.8 RATIO (0.9-2.4); AST(SGOT) 11 U/L (15-37); Alanine Aminotransfer ALT/SGPT 17 U/L (13-56); Albumin, Serum 2.9 g/dL (3.2-5.0); Alkaline Phosphatase 68 U/L (45-117); Anion Gap 8 (5-15); BUN 17 mg/dL (7-18); BUN/Creat Ratio 15.3 RATIO (10-20); Calcium,Total 9.5 mg/dL (8.5-10.1); Chloride 103 mmol/L (98-107); Creatinine, Serum 1.11 mg/dL (0.55-1.02); EST Glomerular Filtration Rate 50 mL/min (>60); Est Glom Filt Rate - Afr Amer 60 mL/min (>60); Globulin 3.7 g/dL (2.2-4.2); Glucose 153 mg/dL (74-106); Potassium 3.7 mmol/L (3.5-5.1); Protein, Total 6.6 g/dL (6.4-8.2); Sodium Level 136 mmol/L (136-145)
== END ==
LOC: OLS.SW 05:00
PROVIDERS: PCP Internal Medicine; Visit Provider Internal Medicine
DX: E11.9 Type 2 diabetes mellitus without complications (principal); I10 Essential (primary) hypertension
CPT/HCPCS: 36415; 80053; 85027

== ENCOUNTER → 2023-03-10 | Outpatient (REF) | payer MEDICARE, MEDICAID, SELFPAY ==
[2023-03-10 10:48] LABS: T4 Total, Thyroxin 13.2 ug/dL (4.8-13.9); Thyroid Stim Hormone (TSH) 0.12 uIU/mL (0.358-3.74)
== END ==
LOC: OLS.SW 05:00
PROVIDERS: PCP Internal Medicine; Visit Provider Internal Medicine
DX: E03.9 Hypothyroidism, unspecified (principal)
CPT/HCPCS: 36415; 84436; 84443

== ENCOUNTER → 2023-04-06 | Outpatient (REF) | payer MEDICARE, MEDICAID, SELFPAY ==
[2023-04-06 10:40] LABS: Hematocrit 36.4 % (37-47); Hemoglobin 11.4 g/dL (12.0-15.0); Mean Corp Hgb Conc 31.3 g/dL (32-36); Mean Corpuscular Volume 92.6 fL (81-99); Mean Platelet Vol. 11.9 fl (6.2-12.0); Platelet Count 288 K/mm3 (150-450); RBC Distribution Width CV 13.1 % (11.6-14.6); RBC Distribution Width SD 44.5 fl (35.1-43.9); Red Blood Count 3.93 M/mm3 (4.2-5.4); White Blood Count 8.5 K/mm3 (4.4-11.0)
[2023-04-06 11:11] LABS: ALB/GLOB Ratio 0.8 RATIO (0.9-2.4); AST(SGOT) 20 U/L (15-37); Alanine Aminotransfer ALT/SGPT 24 U/L (13-56); Albumin, Serum 2.9 g/dL (3.2-5.0); Alkaline Phosphatase 60 U/L (45-117); Anion Gap 7 (5-15); BUN 26 mg/dL (7-18); Calcium,Total 9.1 mg/dL (8.5-10.1); Chloride 102 mmol/L (98-107); Creatinine, Serum 1.18 mg/dL (0.55-1.02); EST Glomerular Filtration Rate 46 mL/min (>60); Est Glom Filt Rate - Afr Amer 56 mL/min (>60); Globulin 3.7 g/dL (2.2-4.2); Glucose 68 mg/dL (74-106); Potassium 3.9 mmol/L (3.5-5.1); Protein, Total 6.6 g/dL (6.4-8.2); Sodium Level 140 mmol/L (136-145)
== END ==
LOC: OLS.SW 05:00
PROVIDERS: PCP Internal Medicine; Visit Provider Internal Medicine
DX: D64.9 Anemia, unspecified (principal); E11.22 Type 2 diabetes mellitus with diabetic chronic kidney disease; I12.9 Hypertensive chronic kidney disease with stage 1 through stage 4 chronic kidney disease, or unspecified chronic kidney disease; N18.9 Chronic kidney disease, unspecified
CPT/HCPCS: 36415; 80053; 84134; 85027

== ENCOUNTER 2023-04-08 10:25 | Emergency (ER) | payer MEDICARE, MEDICAID, SELFPAY ==
[2023-04-08 10:27] VITALS: BP 209/101; PULSE 94; RESP 21; TEMP 35.4; O2SAT 93; BMI 28.4
[2023-04-08 10:34] VITALS: BP 178/85; PULSE 68; RESP 21; O2SAT 95
--- NOTE | 2023-04-08 10:37 | CT_ITS ---
INDICATION: Mental Status Change EXAMINATION: CT BRAIN - CT Head or Brain W/O Contrast Injection TECHNIQUE: Multiple axial images were obtained of the head without intravenous contrast. A radiation dose optimization technique was used for this scan. IV Contrast dosage and agent: None. RADIATION DOSAGE (If Supplied By Facility): CTDIvol = ( 44.99 ) mGy, DLP = ( 745.49 ) mGycm COMPARISON: February 23, 2022 FINDINGS: BRAIN PARENCHYMA: No intra- or extra-axial hemorrhage. There is stable encephalomalacia within the right parietal lobe system with an old infarct. There are foci of low attenuation within the white matter of the cerebral hemispheres, a nonspecific finding most commonly reflecting small vessel ischemia. There are stable low-attenuation foci within the thalami suggestive of old lacunar infarcts. No evidence of acute infarct. No intracranial mass or mass effect. There is preservation of the kulkarni/white matter interface. Posterior fossa structures are unremarkable. CSF SPACES: Appropriate for age. No hydrocephalus. Basal cisterns are patent. CALVARIUM, SKULL BASE, PARANASAL SINUSES AND MASTOID AIR CELLS: Clear. No discrete lytic or blastic abnormalities. ORBITS: Both globes, extraocular muscles, optic nerves and retrobulbar fat appear unremarkable. ASPECTS Score for Acute Strokes: 10 CT/Brain/Head without Contrast IMPRESSION: Stable examination demonstrating no acute intracranial process. Electronically Signed: Mansi Martinez MD at 12:09 EST ,
--- NOTE | 2023-04-08 10:38 | CT_ITS ---
STUDY: CT ABDOMEN AND PELVIS WITH CONTRAST - URINARY TRACT REASON FOR EXAM: Female, 88 years old. Nausea and Vomiting RADIATION DOSAGE (If Supplied By Facility): CTDIvol = ( 18.27 ) mGy, DLP = ( 1013.12 ) mGycm TECHNIQUE: IV 100mL Isovue-300 was administered. Transaxial images were obtained from the dome of the diaphragm to the symphysis pubis subsequent to intravenous contrast administration. Multiplanar coronal and sagittal images were reformatted. Individualized Dose Optimization Techniques Were Used For This CT. COMPARISON: November 02, 2021 and January 07, 2023 FINDINGS: There is minimal dependent consolidation within the lower lobes. There are coronary artery calcifications. Normal liver. The gallbladder is within normal limits. There is mild dilatation of the common bile duct that is less pronounced than the prior examination. Normal spleen. Normal pancreas. Normal bilateral adrenal glands. Normal visualized stomach. Normal small intestine. There are multiple colonic diverticula consistent with diverticulosis. There is non-visualization of the appendix. There is diffuse atherosclerotic calcification of the abdominal aorta, without a demonstrated aneurysm. No retroperitoneal adenopathy. There is right-sided hydronephrosis secondary to a 2 mm calculus within the distal ureter. There is a 4.1 x 2.0 x 3.1 cm complex left renal cyst that contains a solid component. Normal urinary bladder. Normal abdominal wall. There are diffuse degenerative changes of the visualized lumbar spine. There is a stable L2 superior endplate compression deformity. CT/Abdomen/Pelvis W IV Cont ONLY IMPRESSION: Right-sided hydronephrosis secondary to a 2 mm calculus within the distal ureter. 4.1 x 2.0 x 3.17 mm complex left renal lesion recommend MRI with contrast for further characterization for cannot exclude a malignancy. Atherosclerosis. Colonic diverticulosis. Electronically Signed: Mansi Martinez MD at 12:23 EST ,
--- NOTE | 2023-04-08 10:38 | EKG12_ITS ---
Test Reason : UNRESPONSIVE Blood Pressure : / mmHG Vent. Rate : 091 BPM Atrial Rate : 100 BPM P-R Int : 000 ms QRS Dur : 088 ms QT Int : 392 ms P-R-T Axes : 088 053 005 degrees QTc Int : 482 ms Critical Test Result: AV Block Sinus rhythm with 2nd degree A-V block (Mobitz I) Possible Inferior infarct , age undetermined Abnormal ECG Confirmed by LO FLOYD, RAUL ([id number]), pictures editor JESSIKA LINDSEY ([id number]) on 04/13/2023 12:22:26 PM Referred By: MAI Confirmed By:RAUL BLANCHARD MD
--- NOTE | 2023-04-08 10:45 | EX.ED.DYSGE1 ---
HPI History of Present Illness Chief Complaint: Alt LOC Narrative Narrative: 88-year-old female presents from [facility] with altered level of consciousness. It was reported that she was having nausea and vomiting. Upon arrival to the ED, her history and physical is limited as she will only stare off into space, and is nonverbal. She will only respond to painful stimuli with moaning. However, she will blink to visual threat. [facility] reports that she experienced nausea and vomiting throughout the night. PFSH PFS Medical History Carotid artery occlusion Cerebral infarct COPD (chronic obstructive pulmonary disease) Dementia Depression Diabetes Former smoker Gastric reflux GERD (gastroesophageal reflux disease) Hearing loss History of heart attack History of renal disease Hyperlipemia Hypertension Kidney disease Normocytic anemia Obesity Osteomyelitis Osteomyelitis Pressure ulcer Thyroid disease UTI (urinary tract infection) Weakness Wound of left ankle Home Medications clopidogrel 75 mg tablet 75 mg PO DAILY 08/22/21 [History Last Taken 04/07/23] pantoprazole 40 mg tablet,delayed release 40 mg PO QHS GERD 10/24/21 [History Last Taken 04/07/23] acetaminophen 500 mg tablet 1,000 mg (2 x 500 mg) PO Q6H PRN PRN Pain Score 1-3 #0 tabs 11/12/21 [Rx Last Taken 02/20/22] ascorbic acid (vitamin C) 500 mg tablet (Vitamin C) 500 mg PO DAILY 12/08/21 [History Last Taken 04/07/23] nystatin 100,000 unit/gram topical powder (Nyamyc) 1 applic topical TID 12/08/21 [History Last Taken 04/08/23] insulin glargine-yfgn 100 unit/mL (3 mL) subcutaneous pen 15 unit subcut QHS 01/13/22 [History Last Taken 04/07/23] sennosides 8.6 mg-docusate sodium 50 mg tablet (Stool Softener-Stimulant Laxative) 1 tab PO BID CONSTIPATION 01/13/22 [History Last Taken 04/07/23] tramadol 50 mg tablet 50 mg PO Q12H PRN Pain Score 1-10 01/13/22 [History Last Taken 04/07/23] furosemide 20 mg tablet (Lasix) 20 mg PO MOWEFR 02/16/22 [History Last Taken 04/06/23] collagenase clostridium histo. 250 unit/gram topical ointment (Santyl) 1 applic topical QHS LEFT HEEL WOUND 02/23/22 [History Last Taken 02/22/22] levothyroxine 88 mcg tablet 75 mcg PO DAILY THYROID 02/23/22 [History Last Taken 04/08/23] multivitamin 1 tab PO DAILY HEALTH MAINTENANCE 02/23/22 [History Last Taken 04/07/23] polysaccharide iron complex 150 mg iron capsule (Ferrex) 150 mg PO DAILY ANEMIA 02/23/22 [History Last Taken 04/07/23] dulaglutide 1.5 mg/0.5 mL subcutaneous pen injector (Trulicity) 3 mg subcut WE DM 04/06/22 [History Last Taken 04/06/23] losartan 50 mg tablet 25 mg PO DAILY BP 04/06/22 [History Last Taken 04/07/23] midodrine 5 mg tablet 5 mg PO BID 04/06/22 [History Last Taken 04/07/23] bisacodyl 10 mg rectal suppository 10 mg TN DAILY PRN Constipation 04/23/22 [History Last Taken Unknown] guaifenesin 100 mg/5 mL oral liquid 200 mg PO Q4H PRN PRN Cough 04/23/22 [History Last Taken Unknown] metformin 500 mg tablet 500 mg PO BID 04/08/23 [History Last Taken 04/07/23] mirtazapine 7.5 mg tablet 7.5 mg PO QHS 04/08/23 [History Last Taken 04/07/23] Allergy/AdvReac Type Severity Reaction Status Date / Time banana Allergy Hives Verified 01/07/23 12:08 peanut Allergy Hives Verified 01/07/23 12:08 Penicillins Allergy Other Verified 01/07/23 12:08 Sulfa (Sulfonamide Allergy Swelling Verified 01/07/23 12:08 Antibiotics) Surgical History Status post open reduction with internal fixation (ORIF) of fracture of ankle Social History household members: none housing: assisted living facility Smoking Status: Former smoker alcohol intake: never substance use type: does not use ROS ROS ED Review of Systems ROS Unobtainable: due to mental status EXAM Physical Exam Narrative Exam Narrative: Afebrile. Vital signs noted. HEENT: Normocephalic. Atraumatic. PERRL, EOMI. Neck soft and supple. No point tenderness or step off. Cardiovascular: Regular rate and rhythm. No murmurs, rubs, or gallops appreciated. Respiratory: Intermittent tachypnea. Lungs clear to auscultation bilaterally. Gastrointestinal: Abdomen soft, nontender, with normoactive bowel sounds. No rebound or guarding. Neurological: Awake. Alert. 6 daring off into space. Blinks to visual threat bilaterally. Nonfocal, nonlateralizing. Skin: No rash. Normal color. No pallor. Musculoskeletal: No pedal edema. Full range of motion extremities. Const Vital Signs: 04/08/23 10:27 04/08/23 10:34 04/08/23 11:27 Temperature 95.7 F L 97.2 F L Temperature Source Temporal Temporal Pulse Rate 94 68 109 H Respiratory Rate 21 H 21 H 21 H Blood Pressure 209/101 H 178/85 H 173/82 H Blood Pressure Mean 137 116 112 Pulse Ox 93 95 99 Oxygen Delivery Method Nasal Cannula Nasal Cannula Oxygen Flow Rate (L/min) 4 4 MDM MDM MDM Narrative Medical decision making narrative: In the differential diagnosis is hypertensive intracranial hemorrhage versus encephalopathy. She may have an occult urinary tract infection and sepsis as well. However, she is afebrile here, and not tachycardic. Comprehensive work-up was pursued. She does have elevated white count of 11.5, hemoglobin normal at 12.8, hematocrit 40.6, platelet count 297, glucose is appropriately elevated to 47 with a normal anion gap of 9, BUN is slightly elevated at 23 with a normal creatinine of 1.0. Lipase is normal at 20, I do not suspect pancreatitis for her vomiting. Urinalysis is negative for infection but there are 50-100 RBCs. I do not feel antibiotics are indicated. Her lactic acid is elevated at 3.1 which I think is nonspecific. She is not meeting sepsis criteria as her white count is not above 12. CT of the brain was obtained and radiology report reviewed which shows no acute hemorrhage. Chest x-ray in 1 view interpreted by myself shows no evidence of pneumonia. No pneumothorax. I reviewed the radiology report which confirms my independent interpretation. It does comment on possible pulmonary nodule. CT of the abdomen pelvis shows a 2 mm ureteral stone with hydronephrosis on the right, with a renal mass on the left. Through further inspection of her halfway documentation, patient is a DO NOT RESUSCITATE Comfort Care only. She was medicated with morphine and ondansetron for her right ureteral stone. I did discuss the patient with her power of machine featheredger and reducer, Mrs. Yesica Smith, who agrees that her DNR comfort care only status should be kept intact and she should be returned to the long-term facility. Additionally, she is a hospice patient. She will be discharged in stable condition. History & Record Review Discussion w/independent historian: EMS personnel Additional record(s) reviewed:: Prior ED visit, Prior labs and Other ([facility] records.) Lab Data Attestation: I reviewed the patient's lab results. Labs: Laboratory Results - last 24 hr 04/08/23 04/08/23 04/08/23 10:10 10:57 12:14 WBC 11.5 H RBC 4.48 Hgb 12.8 Hct 40.6 MCV 90.6 MCH 28.6 MCHC 31.5 L RDW Std Deviation 42.9 RDW Coeff of Suzy 13.1 Plt Count 297 MPV 12.0 Immature Gran % (Auto) 0.500 Neut % (Auto) 62.3 Lymph % (Auto) 33.2 Johnson % (Auto) 3.4 Eos % (Auto) 0.3 Baso % (Auto) 0.3 Absolute Neuts (auto) 7.2 Absolute Lymphs (auto) 3.82 Nucleated RBC % 0 Sodium 140 Potassium 3.4 L Chloride 103 Carbon Dioxide 28.0 Anion Gap 9 BUN 23 H Creatinine 1.05 H Estim Creat Clear Calc 30.42 Est GFR (MDRD) Af Amer 64 Est GFR (MDRD) Non-Af 53 L BUN/Creatinine Ratio 21.9 H Glucose 247 H Lactic Acid Cancelled Calcium 10.1 Total Bilirubin 0.30 AST 15 ALT 23 Alkaline Phosphatase 72 Ammonia < 10.0 L Total Protein 7.5 Albumin 3.3 Globulin 4.2 Albumin/Globulin Ratio 0.8 L Lipase 20 Urine Color Yellow Urine Clarity Clear Urine pH 7.0 Ur Specific [place] 1.010 Urine Protein 15 H Urine Glucose (UA) 250 H Urine Ketones 5 H Urine Occult Blood 150 H Urine Nitrite Negative Urine Bilirubin Negative Urine Urobilinogen Normal Ur Leukocyte Esterase Negative Urine RBC 50-100 SEEN Urine WBC 0-5 SEEN Ur Squamous Epith Cells 0 SEEN Urine Bacteria 0 SEEN Urine Mucus 0 SEEN 04/08/23 12:33 WBC RBC Hgb Hct MCV MCH MCHC RDW Std Deviation RDW Coeff of Suzy Plt Count MPV Immature Gran % (Auto) Neut % (Auto) Lymph % (Auto) Johnson % (Auto) Eos % (Auto) Baso % (Auto) Absolute Neuts (auto) Absolute Lymphs (auto) Nucleated RBC % Sodium Potassium Chloride Carbon Dioxide Anion Gap BUN Creatinine Estim Creat Clear Calc Est GFR (MDRD) Af Amer Est GFR (MDRD) Non-Af BUN/Creatinine Ratio Glucose Lactic Acid 3.1 H* Calcium Total Bilirubin AST ALT Alkaline Phosphatase Ammonia Total Protein Albumin Globulin Albumin/Globulin Ratio Lipase Urine Color Urine Clarity Urine pH Ur Specific [place] Urine Protein Urine Glucose (UA) Urine Ketones Urine Occult Blood Urine Nitrite Urine Bilirubin Urine Urobilinogen Ur Leukocyte Esterase Urine RBC Urine WBC Ur Squamous Epith Cells Urine Bacteria Urine Mucus Radiography Diagnostic Testing: Clinical Impression(s) from Imaging Studies Brain CT 04/08/23 10:37 IMPRESSION: Stable examination demonstrating no acute intracranial process. Electronically Signed: Mansi Martinez MD at 12:09 EST , Abdomen/Pelvis CT 04/08/23 10:38 IMPRESSION: Right-sided hydronephrosis secondary to a 2 mm calculus within the distal ureter. 4.1 x 2.0 x 3.17 mm complex left renal lesion recommend MRI with contrast for further characterization for cannot exclude a malignancy. Atherosclerosis. Colonic diverticulosis. Electronically Signed: Mansi Martinez MD at 12:23 EST , Chest X-Ray 04/08/23 11:05 IMPRESSION: Indeterminate nodular opacity within the right infrahilar region which may be secondary to a confluence of shadows, consider PA and lateral images for further characterization. Electronically Signed: Mansi Martinez MD at 11:25 EST , Discharge Plan Triage Chief Complaint: Alt LOC Other Complaint: Nausea/Vomiting ED Provider: Jose A Amaya Dx/Rx/DC Orders Clinical Impression: Renal mass, Ureteral calculus, Change in mental status, Do not resuscitate, Lactic acidosis Prescriptions: No Action midodrine 5 mg tablet 5 mg PO BID Rx Instructions: one tab by mouth every morning and at bedtime for hypotension hold BP>130/90 clopidogrel 75 mg tablet 75 mg PO DAILY pantoprazole 40 mg Tablet,Delayed Release (Dr/Ec) 40 mg PO QHS acetaminophen 500 mg Tablet 1,000 mg PO Q6H PRN PRN (Reason: Pain Score 1-3) Qty: 0 0RF ascorbic acid (vitamin C) [Vitamin C] 500 mg Tablet 500 mg PO DAILY nystatin [Nyamyc] 100,000 unit/gram powder 1 applic topical TID Protocol: *Topical Application Instructions APPLICATION INSTRUCTIONS: Apply to Groin and under breast sennosides-docusate sodium [Stool Softener-Stimulant Laxat] 8.6-50 mg tablet 1 tab PO BID tramadol 50 mg tablet 50 mg PO Q12H PRN (Reason: Pain Score 1-10) insulin glargine-yfgn 100 unit/mL (3 mL) insulin pen 15 unit subcut QHS furosemide [Lasix] 20 mg Tablet 20 mg PO MOWEFR multivitamin Tablet 1 tab PO DAILY levothyroxine 88 mcg tablet 75 mcg PO DAILY Santyl 250 unit/gram Ointment 1 applic TOPICAL QHS polysaccharide iron complex [Ferrex 150] 150 mg iron capsule 150 mg PO DAILY Trulicity 1.5 mg/0.5 mL pen injector 3 mg SUBCUT WE Rx Instructions: EVERY TUESDAY losartan 50 mg tablet 25 mg PO DAILY guaifenesin 100 mg/5 mL Liquid 200 mg PO Q4H PRN PRN (Reason: Cough) bisacodyl 10 mg Suppository 10 mg TN DAILY PRN (Reason: Constipation) mirtazapine 7.5 mg tablet 7.5 mg PO QHS metformin 500 mg tablet 500 mg PO BID Primary Care Provider: Billie De Leon Referrals: Billie De Leon MD [Primary Care Provider] - As soon as possible Disposition Disposition: Long-Term Facility Discharge Location: [facility]
[2023-04-08] MEDS: Ondansetron 4 MG/2 ML Vial IV ×2 (11:01→13:10)
[2023-04-08] MEDS: 0.9% Normal Saline (1000mL) 1,000 ML 1000 ML IV (11:01)
--- NOTE | 2023-04-08 11:05 | RAD_ITS ---
INDICATION: Coronary artery disease EXAMINATION/TECHNIQUE: X-RAY - XR Chest 1 View COMPARISON: January 15February 16 and February 23, 2022 FINDINGS: LINES/DEVICES: None. LUNGS: No consolidation, edema or effusion. No pneumothorax. MEDIASTINUM AND CARDIOVASCULAR STRUCTURES: Cardiac silhouette not enlarged. There is a nodular opacity within the right infrahilar region. BONES AND SOFT TISSUES: Unremarkable. RAD/Chest 1 View (Portable) IMPRESSION: Indeterminate nodular opacity within the right infrahilar region which may be secondary to a confluence of shadows, consider PA and lateral images for further characterization. Electronically Signed: Mansi Martinez MD at 11:25 EST ,
[2023-04-08 11:06] LABS: Absolute Lymphocyte Count 3.82 X10^3/uL (0.83-4.51); Absolute Neutrophil Count 7.2 X10^3/uL (2.0-7.7); Basophil# 0.04 X10^3/uL; Basophil% 0.3 % (0-1); Eosinophil# 0.04 X10^3/uL; Eosinophils% 0.3 % (0-5); Hematocrit 40.6 % (37-47); Hemoglobin 12.8 g/dL (12.0-15.0); Lymphocyte # 3.82 X10^3/ul (0.83-4.51); Lymphocyte % 33.2 % (19-41); Mean Corp Hgb Conc 31.5 g/dL (32-36); Mean Corpuscular Hgb 28.6 pg (27.0-32.0); Mean Corpuscular Volume 90.6 fL (81-99); Monocyte# 0.39 X10^3/uL; Monocyte% 3.4 % (0-10); NRBC Flagged by Analyzer 0 % (0-5); Neutrophil # 7.15 X10^3/uL (2.7-7.7); Neutrophil % 62.3 % (47-70); Platelet Count 297 K/mm3 (150-450); RBC Distribution Width CV 13.1 % (11.6-14.6); RBC Distribution Width SD 42.9 fl (35.1-43.9); Red Blood Count 4.48 M/mm3 (4.2-5.4); White Blood Count 11.5 K/mm3 (4.4-11.0)
[2023-04-08 11:22] LABS: ALB/GLOB Ratio 0.8 RATIO (0.9-2.4); AST(SGOT) 15 U/L (15-37); Alanine Aminotransfer ALT/SGPT 23 U/L (13-56); Albumin, Serum 3.3 g/dL (3.2-5.0); Alkaline Phosphatase 72 U/L (45-117); Anion Gap 9 (5-15); BUN 23 mg/dL (7-18); BUN/Creat Ratio 21.9 RATIO (10-20); Calcium,Total 10.1 mg/dL (8.5-10.1); Chloride 103 mmol/L (98-107); Creatinine, Serum 1.05 mg/dL (0.55-1.02); EST Glomerular Filtration Rate 53 mL/min (>60); Est Glom Filt Rate - Afr Amer 64 mL/min (>60); Estimated Creatinine Clearance 30.42 ml/min; Globulin 4.2 g/dL (2.2-4.2); Glucose 247 mg/dL (74-106); Lipase 20 U/L (13-75); Potassium 3.4 mmol/L (3.5-5.1); Protein, Total 7.5 g/dL (6.4-8.2); Sodium Level 140 mmol/L (136-145)
[2023-04-08 11:27] VITALS: BP 173/82; PULSE 109; RESP 21; TEMP 36.2; O2SAT 99
--- NOTE | 2023-04-08 11:40 | NURSING ---
LACTIC ACID TOO SHORT. THEY ARE REPRINTING THE LAB
[2023-04-08 11:41] LABS: Ammonia < 10.0 umol/L (11-32)
[2023-04-08 12:22] LABS: Bacteria 0 SEEN /hpf (None Seen); Mucous, Urine 0 SEEN /hpf (<or=2+); Squamous Epithelial Cells - UA 0 SEEN /hpf (5-10)
[2023-04-08 12:43] LABS: Color, Urine Yellow (Yellow); Glucose, Dipstick 250 mg/dl (Normal); Ketone-Dipstick 5 mg/dl (Negative); Leukocyte Esterase-Dipstick Negative /ul (Negative); Nitrite-Dipstick Negative (Negative); Occult Blood-Urine 150 /ul (Negative); Protein-Dipstick 15 mg/dl (Negative); Urine Bilirubin Dipstick Negative (Negative); Urine Clarity Clear (Clear); Urine Urobilinogen Normal (Normal)
[2023-04-08 12:56] LABS: Red Blood Cells-Urine 50-100 SEEN /hpf (0-5); White Blood Cells 0-5 SEEN /hpf (0-5)
[2023-04-08] MEDS: Morphine 4 MG/ML Syringe IV (13:10)
== END 2023-04-08 14:24 ==
PROVIDERS: Emergency Provider Emergency Medicine; PCP Internal Medicine; Visit Provider Emergency Medicine
DX: N13.2 Hydronephrosis with renal and ureteral calculous obstruction (principal); J44.9 Chronic obstructive pulmonary disease, unspecified; E11.9 Type 2 diabetes mellitus without complications; Z79.4 Long term (current) use of insulin; Z87.891 Personal history of nicotine dependence; E78.5 Hyperlipidemia, unspecified; N28.89 Other specified disorders of kidney and ureter; I10 Essential (primary) hypertension; Z79.02 Long term (current) use of antithrombotics/antiplatelets; K21.9 Gastro-esophageal reflux disease without esophagitis; Z79.899 Other long term (current) drug therapy; Z79.85 Long-term (current) use of injectable non-insulin antidiabetic drugs; Z79.84 Long term (current) use of oral hypoglycemic drugs; R41.82 Altered mental status, unspecified; E87.20 Acidosis, unspecified
CPT/HCPCS: 51702; 70450; 71045; 74177; 80053; 81001; 82140; 83690; 85025; 93005; 96374; 96375; 96376; 99285; J7030; Q9967; A4216; J2405

== ENCOUNTER → 2023-04-18 | Outpatient (REF) | payer MEDICARE, MEDICAID, SELFPAY ==
[2023-04-18 08:28] LABS: Absolute Lymphocyte Count 1.92 X10^3/uL (0.83-4.51); Basophil# 0.02 X10^3/uL; Basophil% 0.3 % (0-1); Eosinophil# 0.26 X10^3/uL; Eosinophils% 3.6 % (0-5); Hematocrit 32.7 % (37-47); Hemoglobin 10.3 g/dL (12.0-15.0); Lymphocyte # 1.92 X10^3/ul (0.83-4.51); Lymphocyte % 26.8 % (19-41); Mean Corp Hgb Conc 31.5 g/dL (32-36); Mean Corpuscular Hgb 28.4 pg (27.0-32.0); Mean Corpuscular Volume 90.1 fL (81-99); Mean Platelet Vol. 10.6 fl (6.2-12.0); Monocyte# 0.82 X10^3/uL; Monocyte% 11.5 % (0-10); NRBC Flagged by Analyzer 0 % (0-5); Neutrophil # 3.99 X10^3/uL (2.7-7.7); Neutrophil % 55.7 % (47-70); Platelet Count 296 K/mm3 (150-450); RBC Distribution Width CV 13.2 % (11.6-14.6); RBC Distribution Width SD 44.1 fl (35.1-43.9); Red Blood Count 3.63 M/mm3 (4.2-5.4); White Blood Count 7.2 K/mm3 (4.4-11.0)
[2023-04-18 09:05] LABS: Anion Gap 7 (5-15); BUN 14 mg/dL (7-18); BUN/Creat Ratio 10.9 RATIO (10-20); Calcium,Total 8.9 mg/dL (8.5-10.1); Chloride 105 mmol/L (98-107); Creatinine, Serum 1.29 mg/dL (0.55-1.02); EST Glomerular Filtration Rate 42 mL/min (>60); Est Glom Filt Rate - Afr Amer 50 mL/min (>60); Glucose 96 mg/dL (74-106); Magnesium 1.6 mg/dL (1.6-2.6); Potassium 3.5 mmol/L (3.5-5.1); Sodium Level 138 mmol/L (136-145)
== END ==
LOC: OLS.SW 05:00
PROVIDERS: PCP Internal Medicine; Visit Provider Internal Medicine
DX: E11.9 Type 2 diabetes mellitus without complications (principal); I10 Essential (primary) hypertension
CPT/HCPCS: 36415; 80048; 83735; 85025

== ENCOUNTER 2023-04-21 12:25 | Inpatient (IN) | payer MEDICARE, MEDICAID, SELFPAY ==
[2023-04-21] VITALS (10 sets, daily range): BP systolic 94–174; BP diastolic 54–78; PULSE 64–100; RESP 14–20; TEMP 36.4–36.9; O2SAT 91–100; BMI 27.9; BMI 27.3
--- NOTE | 2023-04-21 12:32 | CT_ITS ---
STUDY: CT BRAIN WITHOUT CONTRAST REASON FOR EXAM: Female, 88 years old. Altered LOC RADIATION DOSAGE (If Supplied By Facility): CTDIvol = ( 44.99 ) mGy, DLP = ( 779.24 ) mGycm TECHNIQUE: Transaxial CT imaging of the brain was performed without administration of intravenous contrast material. Individualized dose optimization techniques were used for this CT. COMPARISON: Comparison is made with prior study April 08, 2023. FINDINGS: Normal soft tissue structures. Normal calvarium. There is moderate cerebral atrophy with widening of the extra-axial spaces and ventricular dilatation. There are areas of decreased attenuation within the white matter tracts of the supratentorial brain, consistent with microvascular disease changes. Stable encephalomalacia in the left posterior parietal occipital lobes. Old lacunar infarcts in the basal ganglia. Normal brainstem. Normal cerebellum. There is no intracranial hemorrhage. There are no findings of an acute ischemic infarction. Normal visualized paranasal sinuses. CT/Brain/Head without Contrast IMPRESSION: Chronic involutional changes of the brain. Electronically Signed: Ton Rdo MD at 14:10 EST ,
--- NOTE | 2023-04-21 12:32 | EKG12_ITS ---
Test Reason : Blood Pressure : / mmHG Vent. Rate : 094 BPM Atrial Rate : 094 BPM P-R Int : 208 ms QRS Dur : 084 ms QT Int : 370 ms P-R-T Axes : 079 077 036 degrees QTc Int : 462 ms Normal sinus rhythm with sinus arrhythmia Normal ECG Confirmed by LO FLOYD, RAUL ([id number]), editorial clerk PABLO MYLES ([id number]) on 04/22/2023 9:30:14 AM Referred By: ANDREAS Confirmed By:RAUL BLANCHARD MD
--- NOTE | 2023-04-21 12:34 | EX.ED.DYSGE1 ---
HPI History of Present Illness Chief Complaint: Alt LOC Informant: EMS Narrative Narrative: Patient presenting from [facility] by EMS for acute altered mental status. According to the report, she was at her baseline mental status 30 minutes prior to them seeing her this way, exact time is unknown. Patient cannot provide any history and there is no family here. Otherwise she recently was diagnosed with a urinary tract infection, timing of this is unknown and whether she is still on antibiotics is unknown. Patient is not able to provide any history since she is altered. According to accompanying paperwork, she is DNR comfort care only. [facility] Medical History (Updated 04/21/23 @ 14:[address] Dano Delarosa MD) Carotid artery occlusion Cerebral infarct COPD (chronic obstructive pulmonary disease) Depression Diabetes Former smoker Gastric reflux GERD (gastroesophageal reflux disease) Hearing loss History of heart attack History of renal disease Hyperlipemia Hypertension Hypothyroidism Kidney disease Normocytic anemia Obesity Osteomyelitis Osteomyelitis Peripheral vascular disease, unspecified Pressure ulcer Thyroid disease UTI (urinary tract infection) Vascular dementia Weakness Wound of left ankle Home Medications clopidogrel 75 mg tablet 75 mg PO DAILY 08/22/21 [History Last Taken 04/07/23] pantoprazole 40 mg tablet,delayed release 40 mg PO QHS GERD 10/24/21 [History Last Taken 04/07/23] acetaminophen 500 mg tablet 1,000 mg (2 x 500 mg) PO Q6H PRN PRN Pain Score 1-3 #0 tabs 11/12/21 [Rx Last Taken 02/20/22] ascorbic acid (vitamin C) 500 mg tablet (Vitamin C) 500 mg PO DAILY 12/08/21 [History Last Taken 04/07/23] nystatin 100,000 unit/gram topical powder (Nyamyc) 1 applic topical TID 12/08/21 [History Last Taken 04/08/23] insulin glargine-yfgn 100 unit/mL (3 mL) subcutaneous pen 15 unit subcut QHS 01/13/22 [History Last Taken 04/07/23] sennosides 8.6 mg-docusate sodium 50 mg tablet (Stool Softener-Stimulant Laxative) 1 tab PO BID CONSTIPATION 01/13/22 [History Last Taken 04/07/23] tramadol 50 mg tablet 50 mg PO Q12H PRN Pain Score 1-10 01/13/22 [History Last Taken 04/07/23] furosemide 20 mg tablet (Lasix) 20 mg PO MOWEFR 02/16/22 [History Last Taken 04/06/23] collagenase clostridium histo. 250 unit/gram topical ointment (Santyl) 1 applic topical QHS LEFT HEEL WOUND 02/23/22 [History Last Taken 02/22/22] levothyroxine 88 mcg tablet 75 mcg PO DAILY THYROID 02/23/22 [History Last Taken 04/08/23] multivitamin 1 tab PO DAILY HEALTH MAINTENANCE 02/23/22 [History Last Taken 04/07/23] polysaccharide iron complex 150 mg iron capsule (Ferrex) 150 mg PO DAILY ANEMIA 02/23/22 [History Last Taken 04/07/23] dulaglutide 1.5 mg/0.5 mL subcutaneous pen injector (Trulicity) 3 mg subcut WE DM 04/06/22 [History Last Taken 04/06/23] losartan 50 mg tablet 25 mg PO DAILY BP 04/06/22 [History Last Taken 04/07/23] midodrine 5 mg tablet 5 mg PO BID 04/06/22 [History Last Taken 04/07/23] bisacodyl 10 mg rectal suppository 10 mg ND DAILY PRN Constipation 04/23/22 [History Last Taken Unknown] guaifenesin 100 mg/5 mL oral liquid 200 mg PO Q4H PRN PRN Cough 04/23/22 [History Last Taken Unknown] metformin 500 mg tablet 500 mg PO BID 04/08/23 [History Last Taken 04/07/23] mirtazapine 7.5 mg tablet 7.5 mg PO QHS 04/08/23 [History Last Taken 04/07/23] Allergy/AdvReac Type Severity Reaction Status Date / Time banana Allergy Hives Verified 01/07/23 12:08 peanut Allergy Hives Verified 01/07/23 12:08 Penicillins Allergy Other Verified 01/07/23 12:08 Sulfa (Sulfonamide Allergy Swelling Verified 01/07/23 12:08 Antibiotics) Surgical History Status post open reduction with internal fixation (ORIF) of fracture of ankle Social History household members: none housing: assisted living facility Smoking Status: Former smoker alcohol intake: never substance use type: does not use ROS ROS ED Review of Systems ROS Unobtainable: due to mental status EXAM Physical Exam Const Vital Signs: 04/21/23 12:28 04/21/23 12:32 04/21/23 14:00 Temperature 97.7 F L 98.4 F Temperature Source Temporal Temporal Pulse Rate 75 89 Respiratory Rate 20 H 16 Blood Pressure 94/54 L 144/72 H Blood Pressure Mean 67 96 Pulse Ox 91 92 98 Oxygen Delivery Method Nasal Cannula Nasal Cannula Oxygen Flow Rate (L/min) 2 2 Positive well nourished and well developed General Appearance ED: well developed and NAD HEENT Reports moist mucous membranes normocephalic and atraumatic Eyes PERRL and EOMs intact bilaterally Neck full ROM and supple Resp normal respiratory effort and clear to auscultation bilaterally Cardio peripheral pulses 2+ throughout Rate: Negative for tachycardic Rhythm: abnormal rhythm irregularly irregular Heart Sounds: murmur systolic I/ soft Peripheral Pulses: pulses 2+ throughout GI non-tender and non-distended Auscultation: normoactive bowel sounds Palpation: soft Back/Spine no CVA tenderness General Back: other FROM Extremity normal to inspection General Extremety ED: Negative for edema, pulses abnormal or tenderness General Extremity: Negative for edema or pulses abnormal Neuro CN's II-XII intact bilaterally and no sensory deficits noted Neuro Narrative: Does not follow commands or respond to questions. Eyes are open. Moving all 4 extremities but not following commands to do so, localizing the pain. [place] Coma Scale: document GCS findings Spontaneous Localizes to Pain None 10 Sensorium / Orientation: awake, alert and orientation impaired Psych Attitude: agitated Skin no rashes or lesions noted and no wounds Sepsis Attestation Sepsis Alert: Yes Sepsis Attestation: Agree w/Sepsis Date exam was performed: 04/21/23 Time exam was performed: 12:40 Possible Source of Sepsis: Unknown Sepsis Organ Dysfunction Criteria Present: Lactic Acid > 2 mmol/L and New/Unexplained change in mental status Fluid Resuscitation Fluid resuscitation indicated?: Yes Fluid Resuscitation ordered: 30 ml/kg fluid bolus ordered Amount of fluid ordered: 2,000 Sepsis Note Date exam was performed: 04/21/23 Time exam was performed: 14:31 Sepsis Attestation: Sepsis re-evaluation was performed Response to fluids: Fluid responsive hypotension MDM MDM MDM Narrative Medical decision making narrative: EMS did not call stroke alert. I agree this looks less like an acute stroke, she is moving everything symmetrically and equally. She is a limited evaluation given that she is extremely altered, so certainly cerebral hemorrhage is in the differential diagnosis, and a CT of the head is still indicated. However, I do not see any signs of lateralizing neurologic deficits to suggest LVO or candidacy for thrombolytics if plain head CT is negative. For this reason, stroke team was not called. She did go to CT, indeed it is negative for acute hemorrhage/pathology, I reviewed the images and the report and I agree with it. 1 view chest x-ray appears to show some minor bibasilar infiltrates as confirmed by radiology, her urine appears to be grossly infected, culture was sent, blood cultures were sent, she has a leukocytosis, I reviewed the medication list that was sent with her from the residential and it does not include any antibiotics. Therefore she was started on sepsis antibiotics according to protocol, she was responding to the first liter of fluids, up to 94/54, and before giving her the second liter to complete the 30 cc/kg bolus, her blood pressure is 144/72 and her other vital signs are normal, she is on a nasal cannula and breathing well without hypoxemia. Her lactate is elevated. Consistent with sepsis. She is not in septic shock right now, she is DNR CC but will admit to the hospital for stabilization given all of this. History & Record Review Additional record(s) reviewed:: Other (residential records & medication list sent w/ pt) Lab Data Attestation: I reviewed the patient's lab results. Labs: Laboratory Results - last 24 hr 04/21/23 04/21/23 12:30 13:34 WBC 16.4 H RBC 4.12 L Hgb 11.4 L Hct 37.0 MCV 89.8 MCH 27.7 MCHC 30.8 L RDW Std Deviation 44.6 H RDW Coeff of Suzy 13.6 Plt Count 338 MPV 10.4 Immature Gran % (Auto) 0.900 Neut % (Auto) 69.4 Lymph % (Auto) 23.4 [place] % (Auto) 4.5 Eos % (Auto) 1.6 Baso % (Auto) 0.2 Absolute Neuts (auto) 11.4 H Absolute Lymphs (auto) 3.84 Nucleated RBC % 0 PT 12.4 INR 0.9 APTT 28.4 Sodium 141 Potassium 3.7 Chloride 106 Carbon Dioxide 29.0 Anion Gap 6 BUN 20 H Creatinine 1.20 H Estim Creat Clear Calc 25.39 Est GFR (MDRD) Af Amer 55 L Est GFR (MDRD) Non-Af 45 L BUN/Creatinine Ratio 16.7 Glucose 170 H Lactic Acid 2.5 H* Calcium 9.3 Total Bilirubin 0.30 AST 14 L ALT 11 L Alkaline Phosphatase 54 Troponin I High Sens 9 Total Protein 6.5 Albumin 2.5 L Globulin 4.0 Albumin/Globulin Ratio 0.6 L Urine Color Yellow Urine Clarity Cloudy Urine pH 5.0 Ur Specific [place] 1.015 Urine Protein 15 H Urine Glucose (UA) Normal Urine Ketones 5 H Urine Occult Blood 10 H Urine Nitrite Negative Urine Bilirubin Negative Urine Urobilinogen Normal Ur Leukocyte Esterase 500 H Urine RBC 0-5 SEEN Urine WBC 50-100 SEEN Ur Squamous Epith Cells 0-5 SEEN Urine Bacteria 3+ Urine Mucus RARE Radiography Diagnostic Testing: Clinical Impression(s) from Imaging Studies Brain CT 04/21/23 12:32 IMPRESSION: Chronic involutional changes of the brain. Electronically Signed: Ton Rod MD at 14:10 EST , Chest X-Ray 04/21/23 13:06 IMPRESSION: Patchy bibasilar infiltrates. Electronically Signed: Ton Rod MD at 13:27 EST , Rhythm Strip Rhythm Strip: Sinus Rhythm Rate: 90 Ectopy: PAC(s) EKG Initial EKG: Attestation: I personally reviewed and interpreted this EKG as follows: Interpretation: No Acute Injury Pattern and Sinus Arrythmia Management Discussion w/another healthcare provider: Hospitalist Critical Care Time Critical Care Time: Yes Critical care time (excluding procedures): 30-74 minutes (38 min), Including time spent:, Discussing w/Consultants, Arranging Admission or Transfer and Performing Direct Patient Care at Bedside Discharge Plan Dx/Rx/DC Orders Clinical Impression: Acute encephalopathy, Pneumonia of both lower lobes, Sepsis, Acute UTI Disposition Disposition: Acute Care Hospital [facility]
[2023-04-21] MEDS: 0.9% Normal Saline (1000mL) 1,000 ML 999 ML IV ×2 (12:58→14:53)
--- NOTE | 2023-04-21 13:06 | RAD_ITS ---
STUDY: X-RAY CHEST REASON FOR EXAM: Female, 88 years old. Weakness TECHNIQUE: Single AP portable view of the chest. COMPARISON: Comparison is made with prior study dated April 08, 2023. FINDINGS: EKG electrodes are seen. Patchy bibasilar infiltrates. There is no demonstrated pleural abnormality. Normal size heart. Normal mediastinum and toya. Normal visualized pulmonary arteries. There is atherosclerotic calcification of the aortic arch with tortuosity. There are degenerative changes of the visualized thoracic spine. Normal visualized ribs, clavicles, and shoulders. There is no demonstrated abnormality of the visualized soft tissue structures of the upper abdomen. RAD/Chest 1 View (Portable) IMPRESSION: Patchy bibasilar infiltrates. Electronically Signed: Ton Rod MD at 13:27 EST ,
[2023-04-21 13:07] LABS: Absolute Lymphocyte Count 3.84 X10^3/uL (0.83-4.51); Absolute Neutrophil Count 11.4 X10^3/uL (2.0-7.7); Basophil# 0.04 X10^3/uL; Basophil% 0.2 % (0-1); Eosinophil# 0.27 X10^3/uL; Eosinophils% 1.6 % (0-5); Hemoglobin 11.4 g/dL (12.0-15.0); Lymphocyte # 3.84 X10^3/ul (0.83-4.51); Lymphocyte % 23.4 % (19-41); Mean Corp Hgb Conc 30.8 g/dL (32-36); Mean Corpuscular Hgb 27.7 pg (27.0-32.0); Mean Corpuscular Volume 89.8 fL (81-99); Mean Platelet Vol. 10.4 fl (6.2-12.0); Monocyte# 0.74 X10^3/uL; Monocyte% 4.5 % (0-10); NRBC Flagged by Analyzer 0 % (0-5); Neutrophil # 11.36 X10^3/uL (2.7-7.7); Neutrophil % 69.4 % (47-70); Platelet Count 338 K/mm3 (150-450); RBC Distribution Width CV 13.6 % (11.6-14.6); RBC Distribution Width SD 44.6 fl (35.1-43.9); Red Blood Count 4.12 M/mm3 (4.2-5.4); White Blood Count 16.4 K/mm3 (4.4-11.0)
[2023-04-21 13:12] LABS: International Normalized Ratio 0.9; Prothrombin Time (Protime)PT. 12.4 SECONDS (11.7-14.9)
[2023-04-21 13:13] LABS: Partial Thromboplast Time 28.4 Seconds (24.1-36.2)
[2023-04-21 13:26] LABS: ALB/GLOB Ratio 0.6 RATIO (0.9-2.4); AST(SGOT) 14 U/L (15-37); Alanine Aminotransfer ALT/SGPT 11 U/L (13-56); Albumin, Serum 2.5 g/dL (3.2-5.0); Alkaline Phosphatase 54 U/L (45-117); Anion Gap 6 (5-15); BUN 20 mg/dL (7-18); BUN/Creat Ratio 16.7 RATIO (10-20); Calcium,Total 9.3 mg/dL (8.5-10.1); Chloride 106 mmol/L (98-107); EST Glomerular Filtration Rate 45 mL/min (>60); Est Glom Filt Rate - Afr Amer 55 mL/min (>60); Estimated Creatinine Clearance 25.39 ml/min; Glucose 170 mg/dL (74-106); Potassium 3.7 mmol/L (3.5-5.1); Protein, Total 6.5 g/dL (6.4-8.2); Sodium Level 141 mmol/L (136-145); Troponin-I HS 9 pg/mL (3.0-54.0)
[2023-04-21 13:32] LABS: Lactic Acid 2.5 mmol/L (0.4-1.9)
[2023-04-21 13:47] LABS: Color, Urine Yellow (Yellow); Glucose, Dipstick Normal (Normal); Ketone-Dipstick 5 mg/dl (Negative); Leukocyte Esterase-Dipstick 500 /ul (Negative); Nitrite-Dipstick Negative (Negative); Occult Blood-Urine 10 /ul (Negative); Protein-Dipstick 15 mg/dl (Negative); Specific Gravity, Urine 1.015 (1.002-1.030); Urine Bilirubin Dipstick Negative (Negative); Urine Clarity Cloudy (Clear); Urine Urobilinogen Normal (Normal)
[2023-04-21 13:53] LABS: Red Blood Cells-Urine 0-5 SEEN /hpf (0-5); Squamous Epithelial Cells - UA 0-5 SEEN /hpf (5-10); White Blood Cells 50-100 SEEN /hpf (0-5)
[2023-04-21 13:54] LABS: Bacteria 3+ /hpf (None Seen); Mucous, Urine RARE /hpf (<or=2+)
--- NOTE | 2023-04-21 14:42 | HP.PCM.HOS_ITS ---
HPI - General General Date of Admission: 04/21/23 Date of Service: 04/21/23 Chief Complaint: Altered mental status HPI Narrative FANG HERNDON, is a 88 F who presented to [facility] ED on 04/21/2023 from her skilled nursing via EMS for altered mental status. Patient seen at bedside in the ED. Patient was alert and appeared to be making appropriate eye contact with me. However, she was unable to verbalize at all, did not answer any questions for me. No family present at bedside to assist with history. On documentation from her skilled nursing, patient is a DNR CC CODE STATUS. Unclear what her baseline mentation is. Aside from her mental status, patient appears dry on exam but otherwise appears fairly comfortable laying in bed. No other acute concerns at this time. [facility] Medical History (Updated 04/21/23 @ 14:[address] Dano Delarosa MD) Carotid artery occlusion Cerebral infarct COPD (chronic obstructive pulmonary disease) Depression Diabetes Former smoker Gastric reflux GERD (gastroesophageal reflux disease) Hearing loss History of heart attack History of renal disease Hyperlipemia Hypertension Hypothyroidism Kidney disease Normocytic anemia Obesity Osteomyelitis Osteomyelitis Peripheral vascular disease, unspecified Pressure ulcer Thyroid disease UTI (urinary tract infection) Vascular dementia Weakness Wound of left ankle Medical History unable to obtain Home Medications clopidogrel 75 mg tablet 75 mg PO DAILY antiplatelet 08/22/21 [History Last Take n 04/07/23] pantoprazole 40 mg tablet,delayed release 40 mg PO QHS GERD 10/24/21 [History Last Taken 04/07/23] acetaminophen 500 mg tablet 1,000 mg (2 x 500 mg) PO Q6H PRN PRN Pain Score 1-3 #0 tabs 11/12/21 [Rx Last Taken 02/20/22] ascorbic acid (vitamin C) 500 mg tablet (Vitamin C) 500 mg PO DAILY health maintenance 12/08/21 [History Last Taken 04/07/23] nystatin 100,000 unit/gram topical powder (Nyamyc) 1 applic topical TID excoriation 12/08/21 [History Last Taken 04/08/23] insulin glargine-yfgn 100 unit/mL (3 mL) subcutaneous pen 10 unit subcut QHS diabetes 01/13/22 [History Last Taken 04/07/23] sennosides 8.6 mg-docusate sodium 50 mg tablet (Stool Softener-Stimulant Laxative) 1 tab PO BID CONSTIPATION 01/13/22 [History Last Taken 04/07/23] tramadol 50 mg tablet 50 mg PO Q12H Pain Score 1-10 01/13/22 [History Last Taken 04/07/23] furosemide 20 mg tablet (Lasix) 20 mg PO MOWEFR diuretic 02/16/22 [History Last Taken 04/06/23] levothyroxine 88 mcg tablet 75 mcg PO DAILY THYROID 02/23/22 [History Last Taken 04/08/23] multivitamin 1 tab PO DAILY HEALTH MAINTENANCE 02/23/22 [History Last Taken 04/07/23] polysaccharide iron complex 150 mg iron capsule (Ferrex) 150 mg PO DAILY ANEMIA 02/23/22 [History Last Taken 04/07/23] losartan 50 mg tablet 25 mg PO DAILY BP 04/06/22 [History Last Taken 04/07/23] midodrine 5 mg tablet 5 mg PO BID BP 04/06/22 [History Last Taken 04/07/23] bisacodyl 10 mg rectal suppository 10 mg HI DAILY PRN Constipation 04/23/22 [History Last Taken Unknown] guaifenesin 100 mg/5 mL oral liquid 200 mg PO Q4H PRN PRN Cough 04/23/22 [History Last Taken Unknown] metformin 500 mg tablet 500 mg PO BID diabetes 04/08/23 [History Last Taken 04/07/23] mirtazapine 7.5 mg tablet 7.5 mg PO QHS appetite 04/08/23 [History Last Taken 04/07/23] Allergy/AdvReac Type Severity Reaction Status Date / Time banana Allergy Hives Verified 01/07/23 12:08 peanut Allergy Hives Verified 01/07/23 12:08 Penicillins Allergy Other Verified 01/07/23 12:08 Sulfa (Sulfonamide Allergy Swelling Verified 01/07/23 12:08 Antibiotics) Family History unable to obtain Surgical History Status post open reduction with internal fixation (ORIF) of fracture of ankle Surgical History unable to obtain Social History household members: none housing: assisted living facility Smoking Status: Former smoker alcohol intake: never substance use type: does not use ROS Review of Systems ROS Unobtainable: due to encephalopathy Vital Signs Vital Signs Vital Signs: 04/21/23 12:28 04/21/23 12:32 04/21/23 14:00 Temperature 97.7 F L 98.4 F Temperature Source Temporal Temporal Pulse Rate 75 89 Respiratory Rate 20 H 16 Blood Pressure 94/54 L 144/72 H Blood Pressure Mean 67 96 Pulse Ox 91 92 98 Oxygen Delivery Method Nasal Cannula Nasal Cannula Oxygen Flow Rate (L/min) 2 2 Weight Weight: 68.901 kg Body Mass Index (BMI) 27.9 Physical Exam Const alert Constitutional Narrative: Elderly female, alert but not verbalizing at all, not answering any questions. Appears chronically ill but is lying comfortably in bed, does not appear to be in acute distress. General Appearance: comfortable HEENT normocephalic, head/scalp atraumatic, hearing grossly normal bilaterally, nasal mucous membranes and turbinates normal and moist oral mucous membranes Eyes PERRL, EOMs intact bilaterally and conjunctivae normal Neck full ROM, no lymphadenopathy and supple Lymph Lymphatic: no lymphadenopathy noted Chest inspection of chest normal Resp Resp Narrative: Mildly decreased breath sounds throughout bilaterally. No crackles or wheezing noted. Satting in mid 90s on 2 L nasal cannula, no increased work of breathing noted. Cardio regular rate, regular rhythm, no murmurs and peripheral pulses 2+ throughout GI normal to inspection, nondistended, normoactive bowel sounds, soft to palpation, non-tender and non-distended Back/Spine normal ROM Extremity normal to inspection, full ROM and no pedal edema Skin no rashes or lesions noted Results Lab / Micro Data 04/21/23 12:30 04/21/23 12:30 Labs: Laboratory Results - last 24 hr 04/21/23 12:30: WBC 16.4 H, RBC 4.12 L, Hgb 11.4 L, Hct 37.0, MCV 89.8, MCH 27.7, MCHC 30.8 L, RDW Std Deviation 44.6 H, RDW Coeff of Suzy 13.6, Plt Count 338, MPV 10.4, Immature Gran % (Auto) 0.900, Neut % (Auto) 69.4, Lymph % (Auto) 23.4, [place] % (Auto) 4.5, Eos % (Auto) 1.6, Baso % (Auto) 0.2, Absolute Neuts (auto) 11.4 H, Absolute Lymphs (auto) 3.84, Nucleated RBC % 0, PT 12.4, INR 0.9, APTT 28.4, Sodium 141, Potassium 3.7, Chloride 106, Carbon Dioxide 29.0, Anion Gap 6, BUN 20 H, Creatinine 1.20 H, Estim Creat Clear Calc 25.39, Est GFR (MDRD) Af Amer 55 L, Est GFR (MDRD) Non-Af 45 L, BUN/Creatinine Ratio 16.7, Glucose 170 H, Lactic Acid 2.5 H*, Calcium 9.3, Total Bilirubin 0.30, AST 14 L, ALT 11 L, Alkaline Phosphatase 54, Troponin I High Sens 9, Total Protein 6.5, Albumin 2.5 L, Globulin 4.0, Albumin/Globulin Ratio 0.6 L 04/21/23 13:34: Urine Color Yellow, Urine Clarity Cloudy, Urine pH 5.0, Ur Specific [place] 1.015, Urine Protein 15 H, Urine Glucose (UA) Normal, Urine Ketones 5 H, Urine Occult Blood 10 H, Urine Nitrite Negative, Urine Bilirubin Negative, Urine Urobilinogen Normal, Ur Leukocyte Esterase 500 H, Urine RBC 0-5 SEEN, Urine WBC 50-100 SEEN, Ur Squamous Epith Cells 0-5 SEEN, Urine Bacteria 3+, Urine Mucus RARE Micro: Microbiology 04/21/23 12:38 Nasal Secretion SARS-CoV-2 & FLU Antigen (Rapid) - Final Rhythm Strip Rhythm Strip: Sinus Rhythm Rate: 90 Ectopy: PAC(s) Imagaing Radiology Impression Brain CT 04/21/23 12:32 IMPRESSION: Chronic involutional changes of the brain. Electronically Signed: Ton Rod MD at 14:10 EST , Chest X-Ray 04/21/23 13:06 IMPRESSION: Patchy bibasilar infiltrates. Electronically Signed: Ton Rod MD at 13:27 EST , Assessment & Plan Assessment/Plan (1) Sepsis: (2) Acute encephalopathy: PLAN: Plan Patient is an 88-year-old female who presented [facility] ED on 04/21/2023 from skilled nursing for altered mental status. 1. Sepsis without shock, unclear source Hypotensive, WBC count 16, lactate 2.5 on admit. qSOFA score of 3 (altered mentation, increased respiratory rate, low systolic blood pressure). Source suspected to be either UTI or pneumonia. UA showed 500 leukocyte esterase, negative nitrates, 50-100 white blood cells, 3+ bacteria. Patient has history of multiple UTIs, last UTI was in 12/2022, urine culture grew E. coli sensitive to ceftriaxone. Also had UTI in 07/2022, urine culture grew E. coli with similar sensitivities at that time as well. Chest x-ray on admit showed mild patchy bibasilar infiltrates. CT head negative. Initial BP of 90s over 50s, BP significantly improved with 2 L of IV fluids in the ED. COVID and flu negative. ? Admit under inpatient status to PCU. Continue ceftriaxone and azithromycin that were initiated in the ED. Follow-up blood cultures, urine culture. Respir atory PCR panel, urine antigens, sputum culture ordered. Can consider further IV fluid administration as needed. Trend lactate. 2. Acute metabolic encephalopathy Presumed secondary to sepsis as noted above. Patient was alert but not answering any questions or following commands on my interview in the ED. Unclear on her baseline mental status. ? Treat sepsis as noted above. N.p.o. for now, will need bedside swallow screen by nursing staff at minimum prior to taking p.o. medications or initiating patient on a diet. Avoid sedating medications. 3. DNRCC status ? Per chart review and ED staff, patient presented from [facility] and her accompanying paperwork show that she is a DNR comfort care only CODE STATUS. Unable to contact any family to this point. Will treat patient's infection as noted above, hopefully be able to discharge patient back to her skilled nursing in the next few days. Chronic medical conditions: ? CKD stage III: Creatinine 1.20 on admit, at baseline. ? Chronic normocytic anemia: Hemoglobin 11.4 on admit, at baseline. ? Type 2 diabetes: Home regimen of glargine 15 units at night, dulaglutide 3 mg weekly, metformin 500 twice daily. BG 170 on admission. Given that patient is n.p.o., will initiate sliding scale insulin for now, adjust regimen as needed. ? Hypothyroidism: Continue home Synthroid. ? Insomnia: Continue home Remeron. ? GERD: Continue home PPI. ? Chronic pain: Continue home tramadol. DVT prophylaxis: SCDs CODE STATUS: DNR CC Expected disposition: Back to skilled nursing, TBD Total clinical time spent by myself addressing the patient's medical issues, reviewing all the data, and collaborating with patient's care team: 55 minutes.
[2023-04-21] MEDS: Ceftriaxone 1 GM/50 ML BAG IV (14:52)
[2023-04-21] MEDS: Azithromycin 500 MG in Dextrose 5%-Water (250mL Bag) 250 ML 250 MG IV (15:39)
[2023-04-21 16:48] LABS: Reflex Lactate? Y
[2023-04-21 18:40] LABS: Lactic Acid 1.7 mmol/L (0.4-1.9)
[2023-04-21 19:16] LABS: Bedside Glucose 119 mg/dL (74-106)
[2023-04-21 23:16] LABS: Bedside Glucose 97 mg/dL (74-106)
[2023-04-22 02:30] VITALS: BP 152/74; PULSE 99; RESP 18; TEMP 37.2; O2SAT 96
[2023-04-22 03:50] LABS: Bedside Glucose 95 mg/dL (74-106)
[2023-04-22 06:26] LABS: Hemoglobin 10.5 g/dL (12.0-15.0); Mean Corp Hgb Conc 31.8 g/dL (32-36); Mean Corpuscular Hgb 28.2 pg (27.0-32.0); Mean Corpuscular Volume 88.5 fL (81-99); Mean Platelet Vol. 10.4 fl (6.2-12.0); Platelet Count 318 K/mm3 (150-450); RBC Distribution Width CV 13.3 % (11.6-14.6); RBC Distribution Width SD 43.4 fl (35.1-43.9); Red Blood Count 3.73 M/mm3 (4.2-5.4); White Blood Count 12.2 K/mm3 (4.4-11.0)
[2023-04-22 07:20] LABS: Bedside Glucose 91 mg/dL (74-106)
[2023-04-22 07:24] LABS: Anion Gap 6 (5-15); BUN 13 mg/dL (7-18); BUN/Creat Ratio 14.8 RATIO (10-20); Calcium,Total 8.8 mg/dL (8.5-10.1); Chloride 107 mmol/L (98-107); Creatinine, Serum 0.88 mg/dL (0.55-1.02); EST Glomerular Filtration Rate 65 mL/min (>60); Est Glom Filt Rate - Afr Amer 78 mL/min (>60); Estimated Creatinine Clearance 34.63 ml/min; Glucose 89 mg/dL (74-106); Potassium 3.3 mmol/L (3.5-5.1); Sodium Level 140 mmol/L (136-145)
[2023-04-22 08:30] VITALS: BP 150/60; PULSE 83; RESP 18; TEMP 37.1; O2SAT 96
--- NOTE | 2023-04-22 08:38 | PCM.PN.HOSP ---
Reason for Visit Reason for Visit: Altered mental status Subjective Subjective Patient is an 88-year-old female who presents emergency department at [facility] from her local nursing facility at which she resides due to altered mental status. She is a resident at [facility]. Per report from nursing facility she was at her baseline mental status 30 minutes prior and then was found altered. The patient was unable to provide any history and no family was present on admission. She was recently diagnosed with a urinary tract infection but is unknown the timing of this and whether she was still on antibiotics. Documentation revealed that she was a DNR comfort care only. Vital signs on presentation showed a temperature of 97.4, heart rate 75, blood pressure was 94/54 with repeat of 144/72, respiratory rate was 20 and oxygen saturation was 91% on room air. CBC demonstrated leukocytosis with a white count of 16.4 but no left shift. Coags were not normal. Her chemistry panel showed mild serum creatinine elevation at 1.20 but her baseline appears to run between 0.9 and 1.15. She was found to have an elevated lactic acid at 2.5. Liver functions were normal. Her UA does appear to be consistent with infection showing leuk esterase, white cells, and 3+ bacteria. CT of the brain showed chronic involutional changes and chest x-ray demonstrated patchy bibasilar infiltrates. Rapid COVID and flu were negative. Urine culture is pending however preliminary blood cultures are demonstrating gram-positive cocci in clusters. Respiratory viral panel is unremarkable. Patient awake but does not interact appropriately. Per discussion with nursing staff family had evidently had a conversation with the nursing facility about potential hospice referral however this had not been executed prior to the patient, the hospital. Once we establish POA and have paperwork I will have further conversations with regards to goals of care. It sounds as if her overall quality of life prior to presentation was extremely poor. Patient is showing signs of aspiration and has been made n.p.o. except for p.o. meds as able. Objective Data Objective Data Vital Signs: Vital Signs Temp Pulse Resp BP Pulse Ox O2 Del Method O2 Flow Rate 98.8 F 83 18 150/60 H 96 Nasal Cannula 1 04/22/23 08:30 04/22/23 08:30 04/22/23 08:30 04/22/23 08:30 04/22/23 08:30 04/22/23 08:30 04/22/23 07:55 Oxygen Flow Rate (L/min) 1 Oxygen Delivery Method Nasal Cannula Weight: 67.404 kg Body Mass Index (BMI) 27.3 Intake & Output: Intake and Output for Last 24 Hours 04/20/23 04/21/23 04/22/23 23:59 23:59 23:59 Intake Total 2305 / 2305 0 / 0 Output Total 250 / 250 Balance 2305 / 2305 -250 / -250 Lab / Micro Data 04/22/23 05:35 04/22/23 05:35 Labs: Laboratory Results - last 24 hr 04/21/23 12:30: WBC 16.4 H, RBC 4.12 L, Hgb 11.4 L, Hct 37.0, MCV 89.8, MCH 27.7, MCHC 30.8 L, RDW Std Deviation 44.6 H, RDW Coeff of Suzy 13.6, Plt Count 338, MPV 10.4, Immature Gran % (Auto) 0.900, Neut % (Auto) 69.4, Lymph % (Auto) 23.4, [place] % (Auto) 4.5, Eos % (Auto) 1.6, Baso % (Auto) 0.2, Absolute Neuts (auto) 11.4 H, Absolute Lymphs (auto) 3.84, Nucleated RBC % 0, PT 12.4, INR 0.9, APTT 28.4, Sodium 141, Potassium 3.7, Chloride 106, Carbon Dioxide 29.0, Anion Gap 6, BUN 20 H, Creatinine 1.20 H, Estim Creat Clear Calc 25.39, Est GFR (MDRD) Af Amer 55 L, Est GFR (MDRD) Non-Af 45 L, BUN/Creatinine Ratio 16.7, Glucose 170 H, Lactic Acid 2.5 H*, Calcium 9.3, Total Bilirubin 0.30, AST 14 L, ALT 11 L, Alkaline Phosphatase 54, Troponin I High Sens 9, Total Protein 6.5, Albumin 2.5 L, Globulin 4.0, Albumin/Globulin Ratio 0.6 L 04/21/23 13:34: Urine Color Yellow, Urine Clarity Cloudy, Urine pH 5.0, Ur Specific [place] 1.015, Urine Protein 15 H, Urine Glucose (UA) Normal, Urine Ketones 5 H, Urine Occult Blood 10 H, Urine Nitrite Negative, Urine Bilirubin Negative, Urine Urobilinogen Normal, Ur Leukocyte Esterase 500 H, Urine RBC 0-5 SEEN, Urine WBC 50-100 SEEN, Ur Squamous Epith Cells 0-5 SEEN, Urine Bacteria 3+, Urine Mucus RARE 04/21/23 17:40: Lactic Acid 1.7 04/21/23 18:58: POC Glucose 119 H 04/21/23 22:30: POC Glucose 97 04/22/23 03:32: POC Glucose 95 04/22/23 05:35: WBC 12.2 H, RBC 3.73 L, Hgb 10.5 L, Hct 33.0 L, MCV 88.5, MCH 28.2, MCHC 31.8 L, RDW Std Deviation 43.4, RDW Coeff of Suzy 13.3, Plt Count 318, MPV 10.4, Sodium 140, Potassium 3.3 L, Chloride 107, Carbon Dioxide 27.0, Anion Gap 6, BUN 13, Creatinine 0.88, Estim Creat Clear Calc 34.63, Est GFR (MDRD) Af Amer 78, Est GFR (MDRD) Non-Af 65, BUN/Creatinine Ratio 14.8, Glucose 89, Calcium 8.8 04/22/23 07:01: POC Glucose 91 Micro: Microbiology 04/21/23 12:45 Blood Culture (Wb) - Anticubital Left Blood Culture - Preliminary 04/21/23 19:50 Mucosa - Nasopharyngeal Respiratory Panel (PCR) - Final 04/21/23 13:34 Urine, Clean Catch Legionella Antigen - Final 04/21/23 13:34 Urine, Clean Catch Streptococcus pneumoniae Antigen (M - Final 04/21/23 12:38 Nasal Secretion SARS-CoV-2 & FLU Antigen (Rapid) - Final Radiography Diagnostic Testing: Radiology Impression Brain CT 04/21/23 12:32 IMPRESSION: Chronic involutional changes of the brain. Electronically Signed: Ton Rod MD at 14:10 EST , Chest X-Ray 04/21/23 13:06 IMPRESSION: Patchy bibasilar infiltrates. Electronically Signed: Ton Rod MD at 13:27 EST , Rhythm Strip Rhythm Strip: Sinus Rhythm Rate: 90 Ectopy: PAC(s) Physical Exam Const alert, no apparent distress and average body habitus Constitutional Narrative: Elderly, white female, lying in bed, is alert but not interactive at this time, appears to be comfortable and not agitated Orientation / Consciousness: confused HEENT head/scalp atraumatic HEENT Narrative: Patient does have bilateral temporal wasting Head and Scalp: normocephalic Resp normal respiratory effort, no retractions, no use of accessory muscles and clear to auscultation bilaterally Resp Narrative: Crackles at bilateral bases Auscultation: Negative for rales, rhonchi or wheezes Cardio regular rate, regular rhythm, S1 normal heart sound, S2 normal heart sound, no murmurs, no rub, no gallops and no clicks GI normal to inspection, nondistended, normoactive bowel sounds, soft to palpation and non-tender Extremity no clubbing, cyanosis or edema Extremity Narrative: Pedal pulses are 2+, significant reduction in lean muscle mass Neuro Neuro Narrative: Patient is alert but not oriented and not currently interacting at all, spontaneously moves all extremities however does not follow commands or speak Psych Psych Narrative: Unable to assess Assessment & Plan Assessment/Plan (1) Acute UTI: (2) Gram-positive bacteremia: (3) Acute encephalopathy: (4) Severe malnutrition: (5) Dysphagia: PLAN: Plan Sepsis secondary to bacteremia/UTI -Hypotensive, WBC count 16, lactate 2.5 on admit. qSOFA score of 3 (altered mentation, increased respiratory rate, low systolic blood pressure) -Broad-spectrum antibiotics -Cultures pending Gram-positive cocci in clusters bacteremia -Pulmonary cultures are growing gram-positive cocci in clusters consistent with staph species -Will add vancomycin for MRSA coverage -Patient has been positive for MRSA previously -Continue ceftriaxone but increase to 2 g -Check MRSA PCR -Check echocardiogram -Repeat blood cultures in a.m. -Consult infectious disease Acute urinary tract infection -UA is consistent with infection -Previous cultures have grown mildly resistant E. coli -Previous culture was not resistant to ceftriaxone -Continue ceftriaxone but increase to 2 g daily -Await final cultures Dysphagia -Speech therapy is consulted and following -May need cookie swallow -Will leave n.p.o. for now Severe malnutrition -Patient currently requiring n.p.o. status due to mental status and concern for dysphagia -Will start supplements and oral diet as soon as appropriate Hypokalemia -40 mill equivalents p.o. potassium replacement -Recheck in a.m. -Check a.m. magnesium level Acute metabolic encephalopathy -Likely related to the above -Continue to monitor -Baseline is unclear Leukocytosis -Trending down about on antibiotics -Continue to monitor Lactic acidosis -Resolved -Likely related the above Abnormal chest x-ray -Chest x-ray showed bibasilar infiltrates -Etiology is unclear at this time -COVID-19 is negative -Respiratory viral panel is negative -Continue broad-spectrum antibiotics as ordered -Patient not able to produce a sputum culture -Speech therapy consultation Debility -PT/OT consultation Chronic anemia -Hemoglobin currently appears to be stable when compared to previous -Continue to monitor History of stroke/carotid artery occlusion/peripheral vascular disease -Continue home Plavix DM-2 -Restart home basal insulin once p.o. intake has been reinitiated -Hold home Trulicity -Hold home metformin -SSI -Accu-Cheks as ordered -Start cardiac/carb controlled diet once able Hypertension -Hold home Lasix for now -hold home losartan Hypothyroidism -Continue home Synthroid -Check TSH GERD -Continue home PPI Chronic pain -Continue home as needed tramadol once mental status is back to baseline Depression -Home mirtazapine Vascular dementia -Baseline mental status unclear -Continue home medications for vascular disease DVT prophylaxis -SCDs -Start Lovenox 40 daily CODE STATUS -DNR CC and evidently conversation with regards to hospice have been initiated at the nursing facility prior to presentation however hospice has not been initiated. Will have further discussion once POA has been clarified and paperwork is present. Current POA is reported to be a friend. Overall prognosis seems to be extremely poor. Charges/Coding Visit Charges Inpatient E&M: 92781 Subs Hosp L3
--- NOTE | 2023-04-22 08:44 | ECHOD_ITS ---
Reason For Study: BACTEREMIA Procedure This was a 2D Doppler, Color Flow transthoracic echocardiogram. Technically difficult study due to uncooperative and combative patient. Exam performed portable in patient room. Left Ventricle Normal LV size. Left ventricular systolic function is normal. The estimated ejection fraction is 70 %. Stage 1 diastolic dysfunction. No regional wall motion abnormalities noted. Right Ventricle Normal RV size. Normal systolic function. Aortic Valve Trisinus/trileaflet aortic valve. Mild focal aortic valve calcification. Pulmonic Valve The pulmonic valve is not well visualized. Great Vessels Normal aortic root. The pulmonary artery is normal size. Pericardium/Pleural No pericardial effusion. MMode/2D Measurements & Calculations LVOT diam: 1.5 cm LAV(MOD-bp): 45.7 ml LVAd ap4: 16.3 cm2 LVOT area: 1.7 cm2 LAV(MOD-bp) Indexed: 27.5 ml/m2 LVLd ap4: 6.5 cm LAV(MOD-sp2): 42.9 ml EDV(MOD-sp4): 33.8 ml LAV(MOD-sp4): 44.5 ml EDV(sp4-el): 35.0 ml LVAs ap4: 8.3 cm2 LVLs ap4: 5.8 cm ESV(MOD-sp4): 12.2 ml ESV(sp4-el): 10.0 ml EF(MOD-sp4): 63.8 % EF(sp4-el): 71.3 % SV(MOD-sp4): 21.6 ml SV(sp4-el): 24.9 ml LA A4 area: 16.8 cm2 LA dimension(2D): 3.5 cm TAPSE: 1.6 cm RA A4 area: 12.7 cm2 Time Measurements MV dec time: 0.23 sec Doppler Measurements & Calculations MV E max timothy: 91.6 cm/sec Lat Peak E' Timothy: 8.3 cm/sec Med Peak E' Timothy: 5.0 cm/sec MV A max timothy: 77.4 cm/sec E/E' lat: 11.0 E/E' med: 18.5 MV E/A: 1.2 MV V2 max: 96.2 cm/sec MV dec slope: 399.8 cm/sec2 Ao V2 max: 147.9 cm/sec MV max P.7 mmHg Ao max P.8 mmHg MV V2 mean: 53.8 cm/sec Ao V2 mean: 95.3 cm/sec MV mean P.4 mmHg Ao mean P.2 mmHg MV V2 VTI: 46.3 cm Ao V2 VTI: 31.9 cm MVA(VTI): 0.75 cm2 AV (velocity ratio): 0.65 JO ANN(I,D): 1.1 cm2 JO ANN(V,D): 1.3 cm2 LV V1 max: 114.1 cm/sec SV(LVOT): 34.6 ml PA V2 max: 128.6 cm/sec LV V1 max P.2 mmHg PA V2 mean: 84.9 cm/sec LV V1 mean P.4 mmHg LV V1 mean: 70.2 cm/sec LV V1 VTI: 20.7 cm ECHO/Echo Complete Interpretation Summary Normal LV size. Left ventricular systolic function is normal. The estimated ejection fraction is 70 %. Stage 1 diastolic dysfunction. Ordering Physician: Roula Chavez Referring Physician: LUIS BRUSH Performed By: Monik Ferreira RCS
--- NOTE | 2023-04-22 09:07 | CASEMGMT ---
Discharge Planning Updates sent via [employer] to [facility]. Asked if precert will be needed. Awaiting response. Rachael Grissom, Discharge Planning Asst.
[2023-04-22] MEDS: Ceftriaxone 2 GM in 0.9% Normal Saline (50mL MB+) 50 ML IV (09:51)
--- NOTE | 2023-04-22 10:10 | CASEMGMT ---
Social Work LW/POA not on file at [facility]. SW sent a message to [facility] via [employer] requesting they fax the documents to [facility] where pt is currently. CHRISSIE Garcia
--- NOTE | 2023-04-22 10:10 | WOUNDNOTE ---
wound photo: right buttock
[2023-04-22] MEDS: Vancomycin IV 1,000 MG/200 ML BAG 200 MG IV (10:47)
--- NOTE | 2023-04-22 11:04 | PCM.RX.CS ---
Consult Antibiotic Management Pharmacy has been consulted to manage selected antiobiotic: Vancomycin Type of Intervention Type of Consult: New start Suspected Infection Suspected Infection: Sepsis and Bacteremia Labs Labs: Sodium 140 mmol/L (136-145) 04/22/23 05:35 Potassium 3.3 mmol/L (3.5-5.1) L 04/22/23 05:35 Chloride 107 mmol/L (98-107) 04/22/23 05:35 Carbon Dioxide 27.0 mmol/L (21.0-32.0) 04/22/23 05:35 Anion Gap 6 (5-15) 04/22/23 05:35 BUN 13 mg/dL (7-18) 04/22/23 05:35 Creatinine 0.88 mg/dL (0.55-1.02) 04/22/23 05:35 Est GFR (MDRD) Af Amer 78 mL/min (>60) 04/22/23 05:35 Est GFR (MDRD) Non-Af 65 mL/min (>60) 04/22/23 05:35 BUN/Creatinine Ratio 14.8 RATIO (10-20) 04/22/23 05:35 Glucose 89 mg/dL (74-106) 04/22/23 05:35 Microbiology Microbiology: Microbiology 04/21/23 12:45 Blood Culture (Wb) - Anticubital Left Blood Culture - Preliminary 04/21/23 13:25 Blood Culture (Wb) - Anticubital Left Blood Culture - Preliminary 04/21/23 19:50 Mucosa - Nasopharyngeal Respiratory Panel (PCR) - Final 04/21/23 13:34 Urine, Clean Catch Legionella Antigen - Final 04/21/23 13:34 Urine, Clean Catch Streptococcus pneumoniae Antigen (M - Final 04/21/23 12:38 Nasal Secretion SARS-CoV-2 & FLU Antigen (Rapid) - Final Dosing Weight Weight used for dosin.4 kg Estimated Creatinine Clearance Estimated Creatinine Clearance: 41 ML/MIN Goal Trough Goal Trough: 15-20 mcg/mL Pharmacy Plan for Drug Dosing Pharmacy Plan for Drug Dosing: Give initial standard dose (15mg/kg) of 1000mg IV x1 as ordered, then continue with 1000mg q24h. Patient was on the borderline of 1000mg q24h or 500mg q12h so going with the 24 hour one since the patient is 88 years old. Will check a vanc trough before the 3rd dose per protocol. The patient's CrCl of 41 ml/min was calculated using an adjusted body weight. Pharmacy Service will continue to monitor and adjust dosing as required. Follow-Up Labs Follow-Up Labs: Trough: Vancomycin Date/Time Labs Ordered Labs to be done on [date and time ordered]: 04/24 10:30
[2023-04-22 11:57] LABS: Bedside Glucose 143 mg/dL (74-106)
[2023-04-22] MEDS: Enoxaparin 40 MG/0.4 ML Syringe SC (12:04)
[2023-04-22] MEDS: Azithromycin 500 MG in Dextrose 5%-Water (250mL Bag) 250 ML 250 MG IV (12:04)
[2023-04-22] MEDS: Potassium Chloride 10mEq/100mL 10 MEQ/100 ML IV.SOLN. 100 MEQ IV BOLUS ×4 (13:46→17:44)
--- NOTE | 2023-04-22 13:55 | CASEMGMT ---
[facility] sent POA papers, however they are not medical POA papers. Per [facility] patient does not have any family. notified physician. 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 Also, per [facility] patient is not normally confused. Plan: d/c back to [facility] under intermediate level of care. Fabiola Rg [employer]
--- NOTE | 2023-04-22 14:16 | CON.PCM.ID_ITS ---
Assessment & Plan Assessment/Plan (1) Gram-positive bacteremia: PLAN: staph seen on pcr. CXR with patchy infiltrates. Ucx with ecoli. On vanc/ceftriaxone. UAgs neg, will stop azithro. Will follow, thank you (2) Acute UTI: (3) Acute encephalopathy: HPI Consult Data Date of Consult: 04/22/23 HPI Narrative Reason for Consultation: bacteremia HPI Narrative: FANG HERNDON, is a 88 F who presented from [facility] 04/21 due to acute onset altered mental status. Pt unable to provide history or answer ROS due to mental status. Admitted from ED, now on vanc/azithro/ceftriaxone. [facility] Medical History Carotid artery occlusion Cerebral infarct COPD (chronic obstructive pulmonary disease) Depression Diabetes Former smoker Gastric reflux GERD (gastroesophageal reflux disease) Hearing loss History of heart attack History of renal disease Hyperlipemia Hypertension Hypothyroidism Kidney disease Normocytic anemia Obesity Osteomyelitis Osteomyelitis Peripheral vascular disease, unspecified Pressure ulcer Thyroid disease UTI (urinary tract infection) Vascular dementia Weakness Wound of left ankle Medical History unable to obtain Home Medications clopidogrel 75 mg tablet 75 mg PO DAILY antiplatelet 08/22/21 [History Last Taken 04/07/23] pantoprazole 40 mg tablet,delayed release 40 mg PO QHS GERD 10/24/21 [History Last Taken 04/07/23] acetaminophen 500 mg tablet 1,000 mg (2 x 500 mg) PO Q6H PRN PRN Pain Score 1-3 #0 tabs 11/12/21 [Rx Last Taken 02/20/22] ascorbic acid (vitamin C) 500 mg tablet (Vitamin C) 500 mg PO DAILY health maintenance 12/08/21 [History Last Taken 04/07/23] nystatin 100,000 unit/gram topical powder (Nyamyc) 1 applic topical TID excor iation 12/08/21 [History Last Taken 04/08/23] insulin glargine-yfgn 100 unit/mL (3 mL) subcutaneous pen 10 unit subcut QHS diabetes 01/13/22 [History Last Taken 04/07/23] sennosides 8.6 mg-docusate sodium 50 mg tablet (Stool Softener-Stimulant Laxative) 1 tab PO BID CONSTIPATION 01/13/22 [History Last Taken 04/07/23] tramadol 50 mg tablet 50 mg PO Q12H Pain Score 1-10 01/13/22 [History Last Taken 04/07/23] furosemide 20 mg tablet (Lasix) 20 mg PO MOWEFR diuretic 02/16/22 [History Last Taken 04/06/23] levothyroxine 88 mcg tablet 75 mcg PO DAILY THYROID 02/23/22 [History Last Taken 04/08/23] multivitamin 1 tab PO DAILY HEALTH MAINTENANCE 02/23/22 [History Last Taken 04/07/23] polysaccharide iron complex 150 mg iron capsule (Ferrex) 150 mg PO DAILY ANEMIA 02/23/22 [History Last Taken 04/07/23] losartan 50 mg tablet 25 mg PO DAILY BP 04/06/22 [History Last Taken 04/07/23] midodrine 5 mg tablet 5 mg PO BID BP 04/06/22 [History Last Taken 04/07/23] bisacodyl 10 mg rectal suppository 10 mg MO DAILY PRN Constipation 04/23/22 [History Last Taken Unknown] guaifenesin 100 mg/5 mL oral liquid 200 mg PO Q4H PRN PRN Cough 04/23/22 [History Last Taken Unknown] metformin 500 mg tablet 500 mg PO BID diabetes 04/08/23 [History Last Taken 04/07/23] mirtazapine 7.5 mg tablet 7.5 mg PO QHS appetite 04/08/23 [History Last Taken 04/07/23] Allergy/AdvReac Type Severity Reaction Status Date / Time banana Allergy Hives Verified 01/07/23 12:08 peanut Allergy Hives Verified 01/07/23 12:08 Penicillins Allergy Other Verified 01/07/23 12:08 Sulfa (Sulfonamide Allergy Swelling Verified 01/07/23 12:08 Antibiotics) Family History unable to obtain Surgical History Status post open reduction with internal fixation (ORIF) of fracture of ankle Surgical History unable to obtain Social History household members: none housing: assisted living facility Smoking Status: Former smoker alcohol intake: never substance use type: does not use Physical Exam Const no apparent distress General Appearance: lethargic HEENT normocephalic and head/scalp atraumatic Eyes PERRL Neck supple and No nodes Resp normal air movement and clear to auscultation bilaterally Cardio regular rate and regular rhythm GI soft to palpation, non-tender and non-distended Extremity General Extremity: Negative for edema Skin no rashes or lesions noted Neuro CN's II-XII intact bilaterally Lab / Micro Data Attestation: I reviewed the patient's lab results. 04/22/23 05:35 04/22/23 05:35 Labs: Laboratory Results - last 24 hr 04/21/23 17:40: Lactic Acid 1.7 04/21/23 18:58: POC Glucose 119 H 04/21/23 22:30: POC Glucose 97 04/22/23 03:32: POC Glucose 95 04/22/23 05:35: WBC 12.2 H, RBC 3.73 L, Hgb 10.5 L, Hct 33.0 L, MCV 88.5, MCH 28.2, MCHC 31.8 L, RDW Std Deviation 43.4, RDW Coeff of Suzy 13.3, Plt Count 318, MPV 10.4, Sodium 140, Potassium 3.3 L, Chloride 107, Carbon Dioxide 27.0, Anion Gap 6, BUN 13, Creatinine 0.88, Estim Creat Clear Calc 34.63, Est GFR (MDRD) Af Amer 78, Est GFR (MDRD) Non-Af 65, BUN/Creatinine Ratio 14.8, Glucose 89, Calcium 8.8 04/22/23 07:01: POC Glucose 91 04/22/23 11:39: POC Glucose 143 H Micro: Microbiology 04/21/23 13:34 Urine, Catheterized Urine Culture - Preliminary Presumptive E. coli 04/21/23 13:25 Blood Culture (Wb) - Anticubital Left Bacteria Detection (PCR) - Final 04/21/23 13:25 Blood Culture (Wb) - Anticubital Left Blood Culture - Preliminary 04/21/23 12:45 Blood Culture (Wb) - Anticubital Left Blood Culture - Preliminary 04/21/23 19:50 Mucosa - Nasopharyngeal Respiratory Panel (PCR) - Final 04/21/23 13:34 Urine, Clean Catch Legionella Antigen - Final 04/21/23 13:34 Urine, Clean Catch Streptococcus pneumoniae Antigen (M - Final 04/21/23 12:38 Nasal Secretion SARS-CoV-2 & FLU Antigen (Rapid) - Final Rhythm Strip Rhythm Strip: Sinus Rhythm Rate: 90 Ectopy: PAC(s) Imagaing Radiology Impression Brain CT 04/21/23 12:32 IMPRESSION: Chronic involutional changes of the brain. Electronically Signed: Ton Rod MD at 14:10 EST , Echocardiogram 04/22/23 08:44 Interpretation Summary Normal LV size. Left ventricular systolic function is normal. The estimated ejection fraction is 70 %. Stage 1 diastolic dysfunction. Ordering Physician: Roula Chavez Referring Physician: LUIS BRUSH Performed By: Monik Ferreira RCS
[2023-04-22 14:45] VITALS: BP 153/82; PULSE 85; RESP 18; TEMP 36.6; O2SAT 99
[2023-04-22 17:17] LABS: Bedside Glucose 98 mg/dL (74-106)
[2023-04-22 22:02] VITALS: BP 129/71; PULSE 94; RESP 16; TEMP 36.2; O2SAT 95
[2023-04-22 22:29] LABS: Bedside Glucose 111 mg/dL (74-106)
[2023-04-23 03:31] VITALS: BP 135/65; PULSE 90; RESP 16; TEMP 36.6; O2SAT 96
[2023-04-23 05:48] LABS: Absolute Lymphocyte Count 2.11 X10^3/uL (0.83-4.51); Basophil# 0.02 X10^3/uL; Basophil% 0.2 % (0-1); Eosinophil# 0.16 X10^3/uL; Eosinophils% 1.8 % (0-5); Hematocrit 33.5 % (37-47); Hemoglobin 10.6 g/dL (12.0-15.0); Lymphocyte # 2.11 X10^3/ul (0.83-4.51); Lymphocyte % 23.2 % (19-41); Mean Corp Hgb Conc 31.6 g/dL (32-36); Mean Corpuscular Hgb 28.3 pg (27.0-32.0); Mean Corpuscular Volume 89.3 fL (81-99); Mean Platelet Vol. 10.3 fl (6.2-12.0); Monocyte# 0.69 X10^3/uL; Monocyte% 7.6 % (0-10); NRBC Flagged by Analyzer 0 % (0-5); Neutrophil # 6.04 X10^3/uL (2.7-7.7); Neutrophil % 66.5 % (47-70); Platelet Count 333 K/mm3 (150-450); RBC Distribution Width CV 13.7 % (11.6-14.6); RBC Distribution Width SD 44.5 fl (35.1-43.9); Red Blood Count 3.75 M/mm3 (4.2-5.4); White Blood Count 9.1 K/mm3 (4.4-11.0)
[2023-04-23 06:16] LABS: ALB/GLOB Ratio 0.7 RATIO (0.9-2.4); AST(SGOT) 15 U/L (15-37); Alanine Aminotransfer ALT/SGPT 11 U/L (13-56); Albumin, Serum 2.7 g/dL (3.2-5.0); Alkaline Phosphatase 51 U/L (45-117); Anion Gap 7 (5-15); BUN 9 mg/dL (7-18); BUN/Creat Ratio 11.6 RATIO (10-20); Chloride 109 mmol/L (98-107); Creatinine, Serum 0.78 mg/dL (0.55-1.02); EST Glomerular Filtration Rate 75 mL/min (>60); Est Glom Filt Rate - Afr Amer 90 mL/min (>60); Estimated Creatinine Clearance 31.94 ml/min; Globulin 3.9 g/dL (2.2-4.2); Glucose 112 mg/dL (74-106); Magnesium 1.6 mg/dL (1.6-2.6); Phosphorus 3.1 mg/dL (2.5-4.9); Potassium 3.7 mmol/L (3.5-5.1); Protein, Total 6.6 g/dL (6.4-8.2); Sodium Level 141 mmol/L (136-145)
[2023-04-23 07:05] LABS: Bedside Glucose 111 mg/dL (74-106)
[2023-04-23 07:05] LABS: Bedside Glucose 105 mg/dL (74-106)
[2023-04-23 07:56] LABS: M R Staph aureus DNA By PCR Negative (Negative); Probe Check PASS; Specimen Processing Control PASS
[2023-04-23 07:57] VITALS: O2SAT 97
[2023-04-23 09:54] VITALS: BP 144/80; PULSE 93; RESP 14; TEMP 36.6; O2SAT 91
[2023-04-23] MEDS: Ceftriaxone 2 GM in 0.9% Normal Saline (50mL MB+) 50 ML IV (10:16)
[2023-04-23] MEDS: Enoxaparin 40 MG/0.4 ML Syringe SC (10:17)
[2023-04-23] MEDS: Senna/Docusate Sodium 1 Tablet PO ×2 (11:24→22:05)
[2023-04-23] MEDS: Clopidogrel Bisulfate 75 MG Tablet PO (11:24)
[2023-04-23 11:25] VITALS: BP 140/77; PULSE 100; RESP 14; TEMP 36.6; O2SAT 95
[2023-04-23] MEDS: Vancomycin IV 1,000 MG/200 ML BAG 200 MG IV (11:43)
[2023-04-23 11:50] LABS: Bedside Glucose 130 mg/dL (74-106)
--- NOTE | 2023-04-23 13:46 | PN.HOSP_ITS ---
Reason for Visit Reason for Visit: Altered mental status Subjective Subjective No issues overnight. Patient appears to be more interactive today however mental status is not what is reported her baseline has been previously. Is able to take medications orally now but is still n.p.o. awaiting speech therapy input. P.o. intake did bring paperwork and however she is not healthcare power of insurance attorney and patient was making decisions for herself so we will have to await patient's mental status to improve before we can further conversations with regards to hospice. Objective Data Objective Data Vital Signs: Vital Signs Temp Pulse Resp BP Pulse Ox O2 Del Method O2 Flow Rate 97.8 F 100 14 140/77 H 95 Room Air 2 04/23/23 11:25 04/23/23 11:25 04/23/23 11:25 04/23/23 11:25 04/23/23 11:25 04/23/23 11:25 04/23/23 07:57 Oxygen Flow Rate (L/min) 2 Oxygen Delivery Method Room Air Weight: 67.4 kg Body Mass Index (BMI) 27.3 Intake & Output: Intake and Output for Last 24 Hours 04/21/23 04/22/23 04/23/23 23:59 23:59 23:59 Intake Total 2305 / 2305 915 / 915 250 / 250 Output Total 1390 / 1690 900 / 900 Balance 2305 / 2305 -475 / -775 -650 / -650 Lab / Micro Data 04/23/23 05:10 04/23/23 05:10 Labs: Laboratory Results - last 24 hr 04/22/23 16:59: POC Glucose 98 04/22/23 22:07: POC Glucose 111 H 04/23/23 01:00: MRSA (PCR) Negative 04/23/23 05:10: WBC 9.1, RBC 3.75 L, Hgb 10.6 L, Hct 33.5 L, MCV 89.3, MCH 28.3, MCHC 31.6 L, RDW Std Deviation 44.5 H, RDW Coeff of Suzy 13.7, Plt Count 333, MPV 10.3, Immature Gran % (Auto) 0.700, Neut % (Auto) 66.5, Lymph % (Auto) 23.2, [place] % (Auto) 7.6, Eos % (Auto) 1.8, Baso % (Auto) 0.2, Absolute Neuts (auto) 6.0, Absolute Lymphs (auto) 2.11, Nucleated RBC % 0, Sodium 141, Potassium 3.7, Chloride 109 H, Carbon Dioxide 25.0, Anion Gap 7, BUN 9, Creatinine 0.78, Estim Creat Clear Calc 31.94, Est GFR (MDRD) Af Amer 90, Est GFR (MDRD) Non-Af 75, BUN/Creatinine Ratio 11.6, Glucose 112 H, Calcium 9.0, Phosphorus 3.1, Magnesium 1.6, Total Bilirubin 0.50, AST 15, ALT 11 L, Alkaline Phosphatase 51, Total Protein 6.6, Albumin 2.7 L, Globulin 3.9, Albumin/Globulin Ratio 0.7 L 04/23/23 05:11: POC Glucose 111 H 04/23/23 06:43: POC Glucose 105 04/23/23 11:21: POC Glucose 130 H Micro: Microbiology 04/21/23 13:34 Urine, Catheterized Urine Culture - Preliminary Presumptive E. coli 04/21/23 12:45 Blood Culture (Wb) - Anticubital Left Blood Culture - Preliminary 04/21/23 13:25 Blood Culture (Wb) - Anticubital Left Bacteria Detection (PCR) - Final 04/21/23 13:25 Blood Culture (Wb) - Anticubital Left Blood Culture - Preliminary Staphylococcus species 04/21/23 19:50 Mucosa - Nasopharyngeal Respiratory Panel (PCR) - Final 04/21/23 13:34 Urine, Clean Catch Legionella Antigen - Final 04/21/23 13:34 Urine, Clean Catch Streptococcus pneumoniae Antigen (M - Final 04/21/23 12:38 Nasal Secretion SARS-CoV-2 & FLU Antigen (Rapid) - Final Rhythm Strip Rhythm Strip: Sinus Rhythm Rate: 90 Ectopy: PAC(s) Physical Exam Const alert, no apparent distress and average body habitus Constitutional Narrative: Elderly, white female, lying in bed in left side-lying, is alert and interacts some which is improved from yesterday, appears to be comfortable and not agitated, nursing at bedside Orientation / Consciousness: confused and disoriented HEENT normocephalic, head/scalp atraumatic, hearing grossly normal bilaterally and moist oral mucous membranes HEENT Narrative: Hard of hearing, dentition is poor, Mallampati is 2, no thrush Resp normal respiratory effort, no retractions, no use of accessory muscles and clear to auscultation bilaterally Resp Narrative: Crackles at bilateral bases Auscultation: Negative for rales, rhonchi or wheezes Cardio regular rate, regular rhythm, S1 normal heart sound, S2 normal heart sound, no murmurs, no rub, no gallops and no clicks GI normal to inspection, nondistended, normoactive bowel sounds, soft to palpation and non-tender Extremity no clubbing, cyanosis or edema Extremity Narrative: Pedal pulses are 2+, significant reduction in lean muscle mass Neuro Neuro Narrative: Patient is alert but not oriented, more interaction today but still limited, spontaneously moves all extremities Psych Psych Narrative: Unable to assess Assessment & Plan Assessment/Plan (1) Acute UTI: (2) Gram-positive bacteremia: (3) Acute encephalopathy: (4) Severe malnutrition: (5) Dysphagia: PLAN: Plan Sepsis secondary to Streptococcus bacteremia/E. coli UTI -Hypotensive, WBC count 16, lactate 2.5 on admit. qSOFA score of 3 (altered mentation, increased respiratory rate, low systolic blood pressure) -Continue with broad-spectrum antibiotics -Finalized cultures and sensitivities are pending -ID is following Staph bacteremia -Continue vancomycin and ceftriaxone -Patient with previous MRSA infection however MRSA PCR is negative -Echocardiogram shows no vegetations -Repeat blood cultures from today are pending -Infectious diseases following-appreciate input Acute E. coli urinary tract infection -Previous culture was not resistant to ceftriaxone -Continue ceftriaxone but increase to 2 g daily with positive blood cultures -Await final cultures and sensitivities Dysphagia -Speech therapy is following and mental status is improving so this should allow for more interaction -May need cookie swallow -Will leave n.p.o. for now except for p.o. meds Severe malnutrition -Patient currently requiring n.p.o. status due to mental status and concern for dysphagia -Will start supplements and oral diet as soon as appropriate and cleared by speech therapy Hypokalemia - resolved Acute metabolic encephalopathy -Likely related to the above -Seems to be slowly improving -Continue to monitor -Baseline is now reported to be alert and oriented x 3 Leukocytosis -Resolved Abnormal chest x-ray -Chest x-ray showed bibasilar infiltrates -Etiology is unclear at this time -COVID-19 is negative -Respiratory viral panel is negative -Continue broad-spectrum antibiotics as ordered -Patient not able to produce a sputum culture -Speech therapy following Debility -PT/OT following Chronic anemia -Hemoglobin currently appears to be stable when compared to previous -Continue to monitor History of stroke/carotid artery occlusion/peripheral vascular disease -Continue home Plavix DM-2 -Restart home basal insulin once p.o. intake has been reinitiated -Hold home Trulicity -Hold home metformin -SSI -Accu-Cheks as ordered -Start cardiac/carb controlled diet once able Hypertension -Will give 1 dose of IV Lasix now -hold home losartan Hypothyroidism -Continue home Synthroid -Check TSH GERD -Continue home PPI Chronic pain -Continue home as needed tramadol once mental status is back to baseline Depression -Home mirtazapine Vascular dementia -Baseline mental status unclear -Continue home medications for vascular disease DVT prophylaxis -Continue subcu Lovenox CODE STATUS -Patient remains DNR CC but unfortunately POA is for finances only and not for healthcare. Will have to await until patient's mental status is improved and further conversation was with regards to hospice Charges/Coding Visit Charges Inpatient E&M: 75348 Subs Hosp L2
[2023-04-23] MEDS: Furosemide 40 MG/4 ML Vial IV (16:00)
[2023-04-23 16:01] VITALS: BP 166/73; PULSE 90; RESP 16; TEMP 36.6; O2SAT 95
[2023-04-23 16:44] LABS: Bedside Glucose 110 mg/dL (74-106)
[2023-04-23] MEDS: Pantoprazole Sodium 40 MG Tablet PO (22:05)
[2023-04-23] MEDS: Mirtazapine 15 MG Tablet 7.5 MG PO (22:05)
[2023-04-23] MEDS: MELATONIN 3 MG TABLET PO (22:14)
[2023-04-23 22:29] VITALS: BP 114/61; PULSE 120; RESP 16; TEMP 35.9; O2SAT 98
[2023-04-24 02:22] LABS: Bedside Glucose 137 mg/dL (74-106)
[2023-04-24 05:30] VITALS: BP 126/65; PULSE 100; RESP 16; TEMP 36.7; O2SAT 95
[2023-04-24 06:12] LABS: Bedside Glucose 108 mg/dL (74-106)
[2023-04-24 07:14] VITALS: O2SAT 91
[2023-04-24 07:16] LABS: Absolute Lymphocyte Count 2.71 X10^3/uL (0.83-4.51); Absolute Neutrophil Count 5.8 X10^3/uL (2.0-7.7); Basophil# 0.03 X10^3/uL; Basophil% 0.3 % (0-1); Eosinophil# 0.18 X10^3/uL; Eosinophils% 1.9 % (0-5); Hematocrit 38.5 % (37-47); Hemoglobin 12.3 g/dL (12.0-15.0); Lymphocyte # 2.71 X10^3/ul (0.83-4.51); Lymphocyte % 28.1 % (19-41); Mean Corp Hgb Conc 31.9 g/dL (32-36); Mean Corpuscular Hgb 28.1 pg (27.0-32.0); Mean Corpuscular Volume 87.9 fL (81-99); Mean Platelet Vol. 10.7 fl (6.2-12.0); Monocyte# 0.91 X10^3/uL; Monocyte% 9.4 % (0-10); NRBC Flagged by Analyzer 0 % (0-5); Platelet Count 380 K/mm3 (150-450); RBC Distribution Width CV 13.6 % (11.6-14.6); RBC Distribution Width SD 43.8 fl (35.1-43.9); Red Blood Count 4.38 M/mm3 (4.2-5.4); White Blood Count 9.7 K/mm3 (4.4-11.0)
[2023-04-24 07:41] LABS: Bedside Glucose 113 mg/dL (74-106)
[2023-04-24 08:11] LABS: Anion Gap 8 (5-15); BUN 11 mg/dL (7-18); BUN/Creat Ratio 11.4 RATIO (10-20); Calcium,Total 9.7 mg/dL (8.5-10.1); Chloride 104 mmol/L (98-107); Creatinine, Serum 0.96 mg/dL (0.55-1.02); EST Glomerular Filtration Rate 58 mL/min (>60); Est Glom Filt Rate - Afr Amer 71 mL/min (>60); Estimated Creatinine Clearance 33.27 ml/min; Glucose 107 mg/dL (74-106); Sodium Level 140 mmol/L (136-145); Thyroid Stim Hormone (TSH) 0.65 uIU/mL (0.358-3.74)
[2023-04-24] MEDS: Clopidogrel Bisulfate 75 MG Tablet PO (10:32)
[2023-04-24] MEDS: Enoxaparin 40 MG/0.4 ML Syringe SC (10:32)
[2023-04-24] MEDS: Senna/Docusate Sodium 1 Tablet PO ×2 (10:32→22:13)
[2023-04-24] MEDS: Meropenem 1 GM in 0.9% Normal Saline (100mL MB+) 100 ML IV ×2 (11:07→22:15)
[2023-04-24] MEDS: Vancomycin Trough/Random Due 1 LAB MC ×2 (11:10→11:11)
[2023-04-24] MEDS: Potassium Chloride 10mEq/100mL 10 MEQ/100 ML IV.SOLN. 100 MEQ IV BOLUS ×4 (11:20→15:05)
[2023-04-24] MEDS: Insulin Lispro 100 UNIT/ML INSULN.PEN SC ×2 (11:27→22:23)
[2023-04-24 11:30] VITALS: BP 125/59; PULSE 99; RESP 18; TEMP 36.6; O2SAT 96
[2023-04-24 11:37] LABS: Vancomycin, Trough Level 13.5 ug/mL (5.0-15.0)
[2023-04-24 11:52] LABS: Bedside Glucose 221 mg/dL (74-106)
--- NOTE | 2023-04-24 13:12 | PN.HOSP_ITS ---
Reason for Visit Reason for Visit: Altered mental status Subjective Subjective Patient much more awake today and will interact some. Is able to have a conversation with me but still confused. Very hard of hearing Objective Data Objective Data Vital Signs: Vital Signs Temp Pulse Resp BP Pulse Ox O2 Del Method O2 Flow Rate 97.9 F 99 18 125/59 H 96 Room Air 2 04/24/23 11:30 04/24/23 11:30 04/24/23 11:30 04/24/23 11:30 04/24/23 11:30 04/24/23 11:30 04/23/23 07:57 Oxygen Flow Rate (L/min) 2 Oxygen Delivery Method Room Air Weight: 67.4 kg Body Mass Index (BMI) 27.3 Intake & Output: Intake and Output for Last 24 Hours 04/22/23 04/23/23 04/24/23 23:59 23:59 23:59 Intake Total 915 / 915 250 / 250 160 / 160 Output Total 1390 / 1690 1225 / 2025 1100 / 1100 Balance -475 / -775 -975 / -1775 -940 / -940 Lab / Micro Data 04/24/23 05:36 04/24/23 05:36 Labs: Laboratory Results - last 24 hr 04/23/23 16:15: POC Glucose 110 H 04/23/23 22:19: POC Glucose 137 H 04/24/23 02:58: POC Glucose 108 H 04/24/23 05:36: WBC 9.7, RBC 4.38, Hgb 12.3, Hct 38.5, MCV 87.9, MCH 28.1, MCHC 31.9 L, RDW Std Deviation 43.8, RDW Coeff of Suzy 13.6, Plt Count 380, MPV 10.7, Immature Gran % (Auto) 0.300, Neut % (Auto) 60.0, Lymph % (Auto) 28.1, [place] % (Auto) 9.4, Eos % (Auto) 1.9, Baso % (Auto) 0.3, Absolute Neuts (auto) 5.8, Absolute Lymphs (auto) 2.71, Nucleated RBC % 0, Sodium 140, Potassium 3.0 L, Chloride 104, Carbon Dioxide 28.0, Anion Gap 8, BUN 11, Creatinine 0.96, Estim Creat Clear Calc 33.27, Est GFR (MDRD) Af Amer 71, Est GFR (MDRD) Non-Af 58 L, B UN/Creatinine Ratio 11.4, Glucose 107 H, Calcium 9.7, TSH 0.65 04/24/23 06:03: POC Glucose 113 H 04/24/23 10:55: Vancomycin Trough 13.5 04/24/23 11:26: POC Glucose 221 H Micro: Microbiology 04/21/23 12:45 Blood Culture (Wb) - Anticubital Left Blood Culture - Final Staphylococcus species 04/21/23 13:25 Blood Culture (Wb) - Anticubital Left Bacteria Detection (PCR) - Final 04/21/23 13:25 Blood Culture (Wb) - Anticubital Left Blood Culture - Final Staphylococcus hominis hominis 04/21/23 13:34 Urine, Catheterized Urine Culture - Final ESBL Escherichia coli 04/21/23 19:50 Mucosa - Nasopharyngeal Respiratory Panel (PCR) - Final 04/21/23 13:34 Urine, Clean Catch Legionella Antigen - Final 04/21/23 13:34 Urine, Clean Catch Streptococcus pneumoniae Antigen (M - Final 04/21/23 12:38 Nasal Secretion SARS-CoV-2 & FLU Antigen (Rapid) - Final Rhythm Strip Rhythm Strip: Sinus Rhythm Rate: 90 Ectopy: PAC(s) Physical Exam Const alert, no apparent distress and average body habitus Constitutional Narrative: Elderly, white female, lying in bed, is alert and interacts verbally and is able to follow commands, appears to be comfortable and not agitated, speech therapy and nursing specialist at bedside HEENT normocephalic, head/scalp atraumatic and moist oral mucous membranes HEENT Narrative: Marked hearing loss Resp normal respiratory effort, no retractions, no use of accessory muscles and clear to auscultation bilaterally Auscultation: Negative for rales, rhonchi or wheezes Cardio regular rate, regular rhythm, S1 normal heart sound, S2 normal heart sound, no murmurs, no rub, no gallops and no clicks GI normal to inspection, nondistended, normoactive bowel sounds, soft to palpation and non-tender Extremity no clubbing, cyanosis or edema Extremity Narrative: Pedal pulses are 2+, significant reduction in lean muscle mass Neuro moves all extremities and no focal motor deficits Neuro Narrative: Following some commands today, marked generalized weakness noted but moves all extremities Sensorium / Orientation: awake, alert and oriented to person Psych Psych Narrative: Pleasantly confused Assessment & Plan Assessment/Plan (1) Acute UTI: (2) Gram-positive bacteremia: (3) Acute encephalopathy: (4) Severe malnutrition: (5) Dysphagia: PLAN: Plan Sepsis secondary to Staph hominis bacteremia/ESBL E. coli UTI -Hypotensive, WBC count 16, lactate 2.5 on admit. qSOFA score of 3 (altered mentation, increased respiratory rate, low systolic blood pressure) -Blood cultures are positive for Staph hominis and this is a fairly resistant organism but is sensitive to vancomycin so we will continue this -Finalized cultures and sensitivities are pending -ID is following Staph hominis bacteremia -Continue vancomycin and ceftriaxone -Patient with previous MRSA infection however MRSA PCR is negative -Echocardiogram shows no vegetations -Repeat blood cultures are pending for clearance -Infectious diseases following-appreciate input Acute ESBL E. coli urinary tract infection -Previous culture was not resistant to ceftriaxone -Discontinue ceftriaxone and start meropenem due to ESBL producing organism -ID is following Dysphagia -Speech therapy was getting ready to evaluate the patient at the time of my exam -Await recommendations Severe malnutrition -Speech therapy is now able to evaluate due to improvement of status -Hopefully will be able to start today Hypokalemia -IV replacement due to limited p.o. status at this point -Recheck in a.m. -Check a.m. magnesium level Acute metabolic encephalopathy -Likely related to the above -Continues to slowly improve -Continue to monitor -Baseline is now reported to be alert and oriented x 3 Abnormal chest x-ray -Chest x-ray showed bibasilar infiltrates -Etiology is unclear at this time -COVID-19 is negative -Respiratory viral panel is negative -Continue broad-spectrum antibiotics as ordered -Patient not able to produce a sputum culture -Speech therapy following Debility -PT/OT following Chronic anemia -Hemoglobin currently appears to be stable when compared to previous -Continue to monitor History of stroke/carotid artery occlusion/peripheral vascular disease -Continue home Plavix DM-2 -Restart home basal insulin once p.o. intake has been reinitiated -Hold home Trulicity -Hold home metformin -SSI -Accu-Cheks as ordered -Start cardiac/carb controlled diet once able Hypertension -hold home losartan Hypothyroidism -Continue home Synthroid - TSH is within normal limits GERD -Continue home PPI Chronic pain -Continue home as needed tramadol once mental status is back to baseline Depression -Home mirtazapine Vascular dementia -Baseline mental status unclear -Continue home medications for vascular disease DVT prophylaxis -Continue subcu Lovenox CODE STATUS -Patient remains DNR CC but unfortunately POA is for finances only and not for healthcare. Will have to await until patient's mental status is improved and further conversation was with regards to hospice Charges/Coding Visit Charges Inpatient E&M: 90076 Subs Hosp L2
--- NOTE | 2023-04-24 13:38 | PCM.RX.CS ---
Consult Antibiotic Management Pharmacy has been consulted to manage selected antiobiotic: Vancomycin Type of Intervention Type of Consult: Follow-up Suspected Infection Suspected Infection: Sepsis Prior Doses of Antibiotics Prior Doses of Antibiotics Received/Current Regimen: Has been on 1000mg iv q24h. Labs Labs: Sodium 140 mmol/L (136-145) 04/24/23 05:36 Potassium 3.0 mmol/L (3.5-5.1) L 04/24/23 05:36 Chloride 104 mmol/L (98-107) 04/24/23 05:36 Carbon Dioxide 28.0 mmol/L (21.0-32.0) 04/24/23 05:36 Anion Gap 8 (5-15) 04/24/23 05:36 BUN 11 mg/dL (7-18) 04/24/23 05:36 Creatinine 0.96 mg/dL (0.55-1.02) 04/24/23 05:36 Est GFR (MDRD) Af Amer 71 mL/min (>60) 04/24/23 05:36 Est GFR (MDRD) Non-Af 58 mL/min (>60) L 04/24/23 05:36 BUN/Creatinine Ratio 11.4 RATIO (10-20) 04/24/23 05:36 Glucose 107 mg/dL (74-106) H 04/24/23 05:36 Vancomycin Trough 13.5 ug/mL (5.0-15.0) 04/24/23 10:55 Microbiology Microbiology: Microbiology 04/21/23 12:45 Blood Culture (Wb) - Anticubital Left Blood Culture - Final Staphylococcus species 04/21/23 13:25 Blood Culture (Wb) - Anticubital Left Bacteria Detection (PCR) - Final 04/21/23 13:25 Blood Culture (Wb) - Anticubital Left Blood Culture - Final Staphylococcus hominis hominis 04/21/23 13:34 Urine, Catheterized Urine Culture - Final ESBL Escherichia coli 04/21/23 19:50 Mucosa - Nasopharyngeal Respiratory Panel (PCR) - Final 04/21/23 13:34 Urine, Clean Catch Legionella Antigen - Final 04/21/23 13:34 Urine, Clean Catch Streptococcus pneumoniae Antigen (M - Final 04/21/23 12:38 Nasal Secretion SARS-CoV-2 & FLU Antigen (Rapid) - Final Dosing Weight Weight used for dosin kg Estimated Creatinine Clearance Estimated Creatinine Clearance: 37ml/min Goal Trough Goal Trough: 15-20 mcg/mL Pharmacy Plan for Drug Dosing Pharmacy Plan for Drug Dosing: Trough today 13.5 and slightly below desired range. Recommend increasing dose to 1250mg iv q24h with trough before 3rd dose of new regimen. Pharmacy Service will continue to monitor and adjust dosing as required. Follow-Up Labs Follow-Up Labs: Trough: Vancomycin (12.5.23 @1130 before 1200 dose)
[2023-04-24] MEDS: Vancomycin HCl 1,250 MG in 0.9% Normal Saline (250mL Bag) 250 ML 167 MG IV (15:05)
[2023-04-24 17:05] VITALS: BP 138/65; PULSE 88; RESP 18; TEMP 36.8; O2SAT 97
[2023-04-24 17:31] LABS: Bedside Glucose 119 mg/dL (74-106)
[2023-04-24] MEDS: MELATONIN 3 MG TABLET PO (22:13)
[2023-04-24] MEDS: Mirtazapine 15 MG Tablet 7.5 MG PO (22:14)
[2023-04-24] MEDS: Pantoprazole Sodium 40 MG Tablet PO (22:14)
[2023-04-24 22:24] VITALS: BP 134/56; PULSE 98; RESP 16; TEMP 36.7; O2SAT 98
[2023-04-25 00:38] LABS: Bedside Glucose 166 mg/dL (74-106)
[2023-04-25 03:55] VITALS: BP 121/51; PULSE 94; RESP 16; TEMP 36.5; O2SAT 94
[2023-04-25] MEDS: Levothyroxine 75 MCG Tablet PO (05:54)
[2023-04-25 06:47] LABS: Bedside Glucose 143 mg/dL (74-106)
[2023-04-25 06:58] LABS: Bedside Glucose 126 mg/dL (74-106)
[2023-04-25 07:19] LABS: Absolute Lymphocyte Count 2.63 X10^3/uL (0.83-4.51); Absolute Neutrophil Count 4.8 X10^3/uL (2.0-7.7); Basophil# 0.06 X10^3/uL; Basophil% 0.7 % (0-1); Eosinophil# 0.27 X10^3/uL; Eosinophils% 3.1 % (0-5); Hematocrit 35.7 % (37-47); Hemoglobin 11.4 g/dL (12.0-15.0); Lymphocyte # 2.63 X10^3/ul (0.83-4.51); Lymphocyte % 30.3 % (19-41); Mean Corp Hgb Conc 31.9 g/dL (32-36); Mean Corpuscular Hgb 28.2 pg (27.0-32.0); Mean Corpuscular Volume 88.4 fL (81-99); Mean Platelet Vol. 10.7 fl (6.2-12.0); Monocyte# 0.92 X10^3/uL; Monocyte% 10.6 % (0-10); NRBC Flagged by Analyzer 0 % (0-5); Neutrophil # 4.76 X10^3/uL (2.7-7.7); Neutrophil % 54.8 % (47-70); Platelet Count 363 K/mm3 (150-450); RBC Distribution Width CV 13.9 % (11.6-14.6); RBC Distribution Width SD 44.7 fl (35.1-43.9); Red Blood Count 4.04 M/mm3 (4.2-5.4); White Blood Count 8.7 K/mm3 (4.4-11.0)
[2023-04-25 08:01] VITALS: BP 121/52; PULSE 90; RESP 20; TEMP 36.8; O2SAT 96
[2023-04-25 08:04] LABS: Anion Gap 5 (5-15); BUN 18 mg/dL (7-18); BUN/Creat Ratio 14.2 RATIO (10-20); Calcium,Total 8.9 mg/dL (8.5-10.1); Chloride 109 mmol/L (98-107); Creatinine, Serum 1.27 mg/dL (0.55-1.02); EST Glomerular Filtration Rate 42 mL/min (>60); Est Glom Filt Rate - Afr Amer 51 mL/min (>60); Estimated Creatinine Clearance 25.15 ml/min; Glucose 147 mg/dL (74-106); Magnesium 1.6 mg/dL (1.6-2.6); Potassium 3.5 mmol/L (3.5-5.1); Sodium Level 140 mmol/L (136-145)
[2023-04-25 08:37] VITALS: O2SAT 96
[2023-04-25] MEDS: Clopidogrel Bisulfate 75 MG Tablet PO (10:02)
[2023-04-25] MEDS: Enoxaparin 40 MG/0.4 ML Syringe SC (10:02)
[2023-04-25] MEDS: Senna/Docusate Sodium 1 Tablet PO (10:02)
[2023-04-25] MEDS: Meropenem 1 GM in 0.9% Normal Saline (100mL MB+) 100 ML IV (10:07)
--- NOTE | 2023-04-25 10:55 | PCM.PN.ID ---
ID ID: Patient [place]; respondsive. No complaints. Murry cath in place Route of nutrition/ use of supplements: [] Nutritional Intake: [] IV Site: [] Murry Catheter: [] Abd: soft nontender. heart S1-S2 Assessment & Plan Assessment/Plan (1) Acute UTI: PLAN: Currently Day#2 of Meropenum; 3 more days of daily Ertapenum either IV or IM 1 gm daily. CoNS bacteremia contaminate will D/C [place]
[2023-04-25 11:16] LABS: Bedside Glucose 186 mg/dL (74-106)
--- NOTE | 2023-04-25 11:20 | NURSING ---
spoke with nurse at [facility] that takes care of patient states patient is at baseline mental status has dementia
--- NOTE | 2023-04-25 11:41 | CASEMGMT ---
Discharge Planning Updates as well as planned discharge for today sent to [facility] via [facility]. Rachael Grissom, Discharge Planning Asst.
[2023-04-25] MEDS: Insulin Lispro 100 UNIT/ML INSULN.PEN SC (11:45)
--- NOTE | 2023-04-25 13:51 | PCM.TXEXTCAR ---
Diet Diet Order/Speech Therapy: 04/24/23 10:19 Diet: Regular - General Food consistency:: Pureed Liquid Consistency:: [place]/Mildly Thick Type of Dietary Supplement:: Fortified Pud TID Is pt able to select menu?: No Diet Comments: Meds crushed in , total feed, only feed when alert/accepting Routine Orders/Code Status O2 Frequency: PRN Keep PO Greater than or Equal to (%): 89 Routine Lab Work: CBC Code Status: DNRCC-A (No intubation) Wound(s) rt buttock: Wound Type: Pressure Injury Dressing Change: Mepilex Suggestions for Active Care Change Position every (hours): 2 Hours to sit in a chair: 2 Times a day to sit in chair: 2 Therapies Physical Therapy: Eval and Treat Occupational Therapy: Eval and Treat Speech Therapy: Eval and Treat Problem/Diagnosis (1) Acute UTI: Status: Acute Code(s): N39.0 - Urinary tract infection, site not specified Allergies/Procedures Done in Hospital Allergies banana Allergy (Verified 01/07/23 12:08) Hives peanut Allergy (Verified 01/07/23 12:08) Hives PEANUT BUTTER Penicillins Allergy (Verified 01/07/23 12:08) Other Sulfa (Sulfonamide Antibiotics) Allergy (Verified 01/07/23 12:08) Swelling Procedures: 2-D Echocardiogram Type of Care/Length of Stay Estimated LOS: More Than 30 Days Type of Care Needed: Intermediate Rehab Potential: None Prognosis: None Additional Orders/Day of Discharge Day of Discharge: 04/25/23 Dietary and Speech Recommendations Dietitian Recommendations/Changes: Will continue liberalized regular diet with consistency/texture as per BOILER/CHILLER OPERATOR. Consider enteral nutrition support if weight declines and PO remains suboptimal. Will add fortified pudding TID w/ meals as tolerated. Discharge Plan Admission Admit Date/Time: 04/21/23 14:59 Attending Provider: Roula Chavez Primary Care Provider: Billie De Leon Consulting Providers: Anthony Cardozo; Frederic Cherry Discharge Orders/Prescriptions Prescriptions: No Action midodrine 5 mg tablet 5 mg PO BID Rx Instructions: one tab by mouth every morning and at bedtime for hypotension hold BP>130/90 clopidogrel 75 mg tablet 75 mg PO DAILY pantoprazole 40 mg Tablet,Delayed Release (Dr/Ec) 40 mg PO QHS acetaminophen 500 mg Tablet 1,000 mg PO Q6H PRN PRN (Reason: Pain Score 1-3) Qty: 0 0RF ascorbic acid (vitamin C) [Vitamin C] 500 mg Tablet 500 mg PO DAILY nystatin [Nyamyc] 100,000 unit/gram powder 1 applic topical TID Protocol: *Topical Application Instructions APPLICATION INSTRUCTIONS: Apply to Groin and under breast sennosides-docusate sodium [Stool Softener-Stimulant Laxat] 8.6-50 mg tablet 1 tab PO BID tramadol 50 mg tablet 50 mg PO Q12H insulin glargine-yfgn 100 unit/mL (3 mL) insulin pen 10 unit subcut QHS furosemide [Lasix] 20 mg Tablet 20 mg PO MOWEFR multivitamin Tablet 1 tab PO DAILY levothyroxine 88 mcg tablet 75 mcg PO DAILY polysaccharide iron complex [Ferrex 150] 150 mg iron capsule 150 mg PO DAILY losartan 50 mg tablet 25 mg PO DAILY Rx Instructions: Hold for SBP <110 guaifenesin 100 mg/5 mL Liquid 200 mg PO Q4H PRN PRN (Reason: Cough) bisacodyl 10 mg Suppository 10 mg NE DAILY PRN (Reason: Constipation) mirtazapine 7.5 mg tablet 7.5 mg PO QHS metformin 500 mg tablet 500 mg PO BID Referrals / Follow Up: Billie De Leon MD [Primary Care Provider] -
--- NOTE | 2023-04-25 13:56 | PCM.DC.SUM ---
Providers Date of Admission: 04/21/23 Date of Discharge: 04/25/23 Primary Care Physician: Dr. Billie De Leon MD Consultations 04/22/23 08:31 Consult: Onc/Wound/fashion styling intern Routine Comment: Reason for Consult:: wound to coccyx 04/22/23 08:44 Consult: Infectious Disease Routine Consulting Provider: Frederic Cherry Reason for Consult: GP Bacteremia MINING TECHNICIAN clusters EMERGENT Consult: No MD Notified: Yes Date Notified: 04/22/23 Time Notified: 08:44 Method of Notification: Text Reason For Visit: SEPSIS WITHOUT SHOCK Diagnosis Discharge Diagnosis (1) Acute UTI: Status: Acute Code(s): N39.0 - Urinary tract infection, site not specified Medications at Discharge Home Medications clopidogrel 75 mg tablet 75 mg PO DAILY antiplatelet 08/22/21 pantoprazole 40 mg tablet,delayed release 40 mg PO QHS GERD 10/24/21 acetaminophen 500 mg tablet 1,000 mg (2 x 500 mg) PO Q6H PRN PRN Pain Score 1-3 #0 tabs 11/12/21 ascorbic acid (vitamin C) 500 mg tablet (Vitamin C) 500 mg PO DAILY health maintenance 12/08/21 nystatin 100,000 unit/gram topical powder (Nyamyc) 1 applic topical TID excoriation 12/08/21 insulin glargine-yfgn 100 unit/mL (3 mL) subcutaneous pen 10 unit subcut QHS diabetes 01/13/22 sennosides 8.6 mg-docusate sodium 50 mg tablet (Stool Softener-Stimulant Laxative) 1 tab PO BID CONSTIPATION 01/13/22 tramadol 50 mg tablet 50 mg PO Q12H Pain Score 1-10 01/13/22 furosemide 20 mg tablet (Lasix) 20 mg PO MOWEFR diuretic 02/16/22 levothyroxine 88 mcg tablet 75 mcg PO DAILY THYROID 02/23/22 multivitamin 1 tab PO DAILY HEALTH MAINTENANCE 02/23/22 polysaccharide iron complex 150 mg iron capsule (Ferrex) 150 mg PO DAILY ANEMIA 02/23/22 losartan 50 mg tablet 25 mg PO DAILY BP 04/06/22 midodrine 5 mg tablet 5 mg PO BID BP 04/06/22 bisacodyl 10 mg rectal suppository 10 mg TN DAILY PRN Constipation 04/23/22 guaifenesin 100 mg/5 mL oral liquid 200 mg PO Q4H PRN PRN Cough 04/23/22 metformin 500 mg tablet 500 mg PO BID diabetes 04/08/23 mirtazapine 7.5 mg tablet 7.5 mg PO QHS appetite 04/08/23 ertapenem 1 gram solution for injection 1 g IM DAILY #5 ea 04/25/23 Hospital Course Procedures 2-D Echocardiogram, EKG and - (CT brain/chest x-ray) Summary of Care Provided Minutes Spent on Discharge: 38 Hospital Course: Ms Blair is an 88-year-old female who presented emergency department at [facility] from her local nursing facility at which she resides on 04/21/2023 due to altered mental status. She is a resident at [facility]. Per report from nursing facility she was at her baseline mental status 30 minutes prior and then was found altered. The patient was unable to provide any history and no family was present on admission. She was recently diagnosed with a urinary tract infection but is unknown the timing of this and whether she was still on antibiotics. Documentation revealed that she was a DNR comfort care only. Vital signs on presentation showed a temperature of 97.4, heart rate 75, blood pressure was 94/54 with repeat of 144/72, respiratory rate was 20 and oxygen saturation was 91% on room air. CBC demonstrated leukocytosis with a white count of 16.4 but no left shift. Coags were not normal. Her chemistry panel showed mild serum creatinine elevation at 1.20 but her baseline appears to run between 0.9 and 1.15. She was found to have an elevated lactic acid at 2.5. Liver functions were normal. Her UA does appear to be consistent with infection showing leuk esterase, white cells, and 3+ bacteria. CT of the brain showed chronic involutional changes and chest x-ray demonstrated patchy bibasilar infiltrates. Rapid COVID and flu were negative. Urine culture is pending however preliminary blood cultures are demonstrating gram-positive cocci in clusters. Respiratory viral panel is unremarkable. She was admitted to the telemetry floor and treated according to sepsis protocol and given broad-spectrum antibiotics after cultures were obtained. Her initial blood culture showed gram-positive cocci in clusters and she was started on vancomycin in addition to her ceftriaxone. An echocardiogram was obtained and showed no signs of vegetations. Repeat blood cultures were obtained as well. Finalization of the cultures were actually staph hominis which was felt to be a contamination by infectious disease and antibiotics to cover this were discontinued however, her urine culture grew an ESBL producing E. coli. Once we had sensitivities her antibiotics were transitioned from ceftriaxone to meropenem for better coverage and infectious disease indicated the need for ongoing IM Invanz at the time of discharge for another 3 days. Her mental status slowly improved as we treated her infection. She was evaluated by physical, occupational, and speech therapy. Speech therapy passed her for a regular diet however they did recommend that her meds were crushed in applesauce and that she be a total feed and only feed when she was alert and accepting. She slowly improved with time as her infection was treated. We did discuss her baseline mental status with the nursing facility and at the time of discharge she was back to her baseline. Evidently they had been pursuing hospice consultation and intervention while she was at the institution which will be further pursued after discharge. No other medication changes were made during her hospitalization. She was able to be discharged back to the nursing facility on 04/25/2023 with ongoing IM Invanz for another 3 days. I have asked that she follow-up with the primary care physician within the next 2 to 3 weeks and obtain a basic metabolic profile and a CBC within the next week. Discharge diagnoses: Sepsis ESBL E. coli UTI Blood culture contamination Dysphagia Severe malnutrition Hypokalemia-resolved Acute metabolic encephalopathy -Resolved Abnormal chest [id number] Debility Chronic anemia History of stroke Carotid artery occlusion Peripheral vascular disease DM-2 Hypertension Hypothyroidism GERD Chronic pain Depression Vascular dementia Physical Exam Const alert, no apparent distress and average body habitus Constitutional Narrative: Elderly, white female, lying in bed, is alert and interacts verbally and is able to follow commands, appears to be comfortable and not agitated General Appearance: cooperative, comfortable, well kempt and well developed Orientation / Consciousness: awake HEENT normocephalic, head/scalp atraumatic and moist oral mucous membranes HEENT Narrative: Dentition is poor, Mallampati is 1-2, no thrush, marked hearing loss Eyes PERRL and conjunctivae normal Eyes Narrative: No scleral icterus Neck no lymphadenopathy and supple Neck Narrative: Trachea midline, no thyroid enlargement Resp normal respiratory effort, no retractions, no use of accessory muscles and clear to auscultation bilaterally Auscultation: Negative for rales, rhonchi or wheezes Cardio regular rate, regular rhythm, S1 normal heart sound, S2 normal heart sound, no murmurs, no rub, no gallops and no clicks GI normal to inspection, nondistended, normoactive bowel sounds, soft to palpation and non-tender Extremity no clubbing, cyanosis or edema Extremity Narrative: Pedal pulses are 2+, significant reduction in lean muscle mass Skin no rashes or lesions noted, no wounds, skin turgor normal and no jaundice Neuro moves all extremities and no focal motor deficits Neuro Narrative: Significant generalized weakness noted, follows all commands consistently, patient speaking Tajik at this point Psych Psych Narrative: Pleasant, calm, interacts appropriately Weight / BMI Weight Weight: 67.4 kg Body Mass Index (BMI) 27.3 ABG / Lab / Microbiology Data 04/25/23 06:50 04/25/23 06:50 Laboratory: Laboratory Results - last 24 hr 04/24/23 17:00: POC Glucose 119 H 04/24/23 22:21: POC Glucose 166 H 04/25/23 02:29: POC Glucose 126 H 04/25/23 05:57: POC Glucose 143 H 04/25/23 06:50: WBC 8.7, RBC 4.04 L, Hgb 11.4 L, Hct 35.7 L, MCV 88.4, MCH 28.2, MCHC 31.9 L, RDW Std Deviation 44.7 H, RDW Coeff of Suzy 13.9, Plt Count 363, MPV 10.7, Immature Gran % (Auto) 0.500, Neut % (Auto) 54.8, Lymph % (Auto) 30.3, [place] % (Auto) 10.6 H, Eos % (Auto) 3.1, Baso % (Auto) 0.7, Absolute Neuts (auto) 4.8, Absolute Lymphs (auto) 2.63, Nucleated RBC % 0, Sodium 140, Potassium 3.5, Chloride 109 H, Carbon Dioxide 26.0, Anion Gap 5, BUN 18, Creatinine 1.27 H, Estim Creat Clear Calc 25.15, Est GFR (MDRD) Af Amer 51 L, Est GFR (MDRD) Non-Af 42 L, BUN/Creatinine Ratio 14.2, Glucose 147 H, Calcium 8.9, Magnesium 1.6 04/25/23 10:56: POC Glucose 186 H Microbiology: Microbiology 04/23/23 05:24 Blood Culture (Wb) - Right Forearm Blood Culture - Preliminary No growth in 48 hours. 04/21/23 12:45 Blood Culture (Wb) - Anticubital Left Blood Culture - Final Staphylococcus species 04/21/23 13:25 Blood Culture (Wb) - Anticubital Left Bacteria Detection (PCR) - Final 04/21/23 13:25 Blood Culture (Wb) - Anticubital Left Blood Culture - Final Staphylococcus hominis hominis 04/21/23 13:34 Urine, Catheterized Urine Culture - Final ESBL Escherichia coli 04/21/23 19:50 Mucosa - Nasopharyngeal Respiratory Panel (PCR) - Final 04/21/23 13:34 Urine, Clean Catch Legionella Antigen - Final 04/21/23 13:34 Urine, Clean Catch Streptococcus pneumoniae Antigen (M - Final 04/21/23 12:38 Nasal Secretion SARS-CoV-2 & FLU Antigen (Rapid) - Final Meaningful Use Info Meaningful Use Diagnoses (Choose all that apply): None applicable Discharge Plan Admission Admit Date/Time: 04/21/23 14:59 Primary Reason for Your Visit: Altered mental status Attending Provider: Roula Chavez Primary Care Provider: Billie De Leon Consulting Providers: Anthony Cardozo; Frederic Cherry Discharge Orders/Prescriptions Prescriptions: New ertapenem 1 gram recon soln 1 g IM DAILY Qty: 5 0RF Continued midodrine 5 mg tablet 5 mg PO BID Rx Instructions: one tab by mouth every morning and at bedtime for hypotension hold BP>130/90 clopidogrel 75 mg tablet 75 mg PO DAILY pantoprazole 40 mg Tablet,Delayed Release (Dr/Ec) 40 mg PO QHS acetaminophen 500 mg Tablet 1,000 mg PO Q6H PRN PRN (Reason: Pain Score 1-3) Qty: 0 0RF ascorbic acid (vitamin C) [Vitamin C] 500 mg Tablet 500 mg PO DAILY nystatin [Nyamyc] 100,000 unit/gram powder 1 applic topical TID Protocol: *Topical Application Instructions APPLICATION INSTRUCTIONS: Apply to Groin and under breast sennosides-docusate sodium [Stool Softener-Stimulant Laxat] 8.6-50 mg tablet 1 tab PO BID tramadol 50 mg tablet 50 mg PO Q12H insulin glargine-yfgn 100 unit/mL (3 mL) insulin pen 10 unit subcut QHS furosemide [Lasix] 20 mg Tablet 20 mg PO MOWEFR multivitamin Tablet 1 tab PO DAILY levothyroxine 88 mcg tablet 75 mcg PO DAILY polysaccharide iron complex [Ferrex 150] 150 mg iron capsule 150 mg PO DAILY losartan 50 mg tablet 25 mg PO DAILY Rx Instructions: Hold for SBP <110 guaifenesin 100 mg/5 mL Liquid 200 mg PO Q4H PRN PRN (Reason: Cough) bisacodyl 10 mg Suppository 10 mg TN DAILY PRN (Reason: Constipation) mirtazapine 7.5 mg tablet 7.5 mg PO QHS metformin 500 mg tablet 500 mg PO BID Referrals / Follow Up: Billie De Leon MD [Primary Care Provider] - Within 2 Weeks Disposition Disposition (needs filled in before D/C Order can be placed): NonSkilled NH/Intermed Care Charges/Coding Visit Charges Inpatient E&M: 36055 SNF Disch >30 Min
[2023-04-25 13:59] VITALS: BP 134/44; PULSE 100; RESP 18; TEMP 36.6; O2SAT 96
--- NOTE | 2023-04-25 14:18 | PHA.DC.MR.R ---
Pharmacy [place] Med Reconciliation Pharmacy Service has performed discharge medication reconciliation for this patient. The patient's discharge medication list was reviewed for discrepancies and discrepancies were resolved. Medications at Discharge Home Medications clopidogrel 75 mg tablet 75 mg PO DAILY antiplatelet 08/22/21 pantoprazole 40 mg tablet,delayed release 40 mg PO QHS GERD 10/24/21 acetaminophen 500 mg tablet 1,000 mg (2 x 500 mg) PO Q6H PRN PRN Pain Score 1-3 #0 tabs 11/12/21 ascorbic acid (vitamin C) 500 mg tablet (Vitamin C) 500 mg PO DAILY health maintenance 12/08/21 nystatin 100,000 unit/gram topical powder (Nyamyc) 1 applic topical TID excoriation 12/08/21 insulin glargine-yfgn 100 unit/mL (3 mL) subcutaneous pen 10 unit subcut QHS diabetes 01/13/22 sennosides 8.6 mg-docusate sodium 50 mg tablet (Stool Softener-Stimulant Laxative) 1 tab PO BID CONSTIPATION 01/13/22 tramadol 50 mg tablet 50 mg PO Q12H Pain Score 1-10 01/13/22 furosemide 20 mg tablet (Lasix) 20 mg PO MOWEFR diuretic 02/16/22 levothyroxine 88 mcg tablet 75 mcg PO DAILY THYROID 02/23/22 multivitamin 1 tab PO DAILY HEALTH MAINTENANCE 02/23/22 polysaccharide iron complex 150 mg iron capsule (Ferrex) 150 mg PO DAILY ANEMIA 02/23/22 losartan 50 mg tablet 25 mg PO DAILY BP 04/06/22 midodrine 5 mg tablet 5 mg PO BID BP 04/06/22 bisacodyl 10 mg rectal suppository 10 mg [place] DAILY PRN Constipation 04/23/22 guaifenesin 100 mg/5 mL oral liquid 200 mg PO Q4H PRN PRN Cough 04/23/22 metformin 500 mg tablet 500 mg PO BID diabetes 04/08/23 mirtazapine 7.5 mg tablet 7.5 mg PO QHS appetite 04/08/23 ertapenem 1 gram solution for injection 1 g IM DAILY #5 ea 04/25/23
--- NOTE | 2023-04-25 14:59 | CASEMGMT ---
Patient is ready for discharge back to [facility]. Plan: d/c back to [facility] under intermediate level of care. Physicians will transport patient. Fabiola NOLEN
--- NOTE | 2023-04-25 15:50 | CASEMGMT ---
Discharge Planning Discharge orders, signed med list, and transport time sent to [facility] via [facility]. [facility] will [facility] patient by cot at 3:45p. Nursing and SW updated. A vm was left for patients Grisel DISLAasha. Rachael Grissom, Discharge Planning Asst.
--- NOTE | 2023-04-25 16:08 | NURSING ---
report called to Shaun KEANE at [facility]
== END 2023-04-25 15:50 | disposition intermediate care facility (04) | DRG 689 ==
LOC: ED 14:36 → PCU 15:04
PROVIDERS: Admitting Provider Hospitalist; Emergency Provider Emergency Medicine; PCP Internal Medicine; Visit Provider Internal Medicine
DX: N39.0 Urinary tract infection, site not specified (principal); E43 Unspecified severe protein-calorie malnutrition; G93.41 Metabolic encephalopathy; E87.20 Acidosis, unspecified; J44.0 Chronic obstructive pulmonary disease with (acute) lower respiratory infection; E11.22 Type 2 diabetes mellitus with diabetic chronic kidney disease; B96.20 Unspecified Escherichia coli [E. coli] as the cause of diseases classified elsewhere; N18.30 Chronic kidney disease, stage 3 unspecified; F01.50 Vascular dementia, unspecified severity, without behavioral disturbance, psychotic disturbance, mood disturbance, and anxiety; D64.9 Anemia, unspecified; E03.9 Hypothyroidism, unspecified; I12.9 Hypertensive chronic kidney disease with stage 1 through stage 4 chronic kidney disease, or unspecified chronic kidney disease; F32.A Depression, unspecified; E11.51 Type 2 diabetes mellitus with diabetic peripheral angiopathy without gangrene; Z79.4 Long term (current) use of insulin; E78.5 Hyperlipidemia, unspecified; K21.9 Gastro-esophageal reflux disease without esophagitis; E87.6 Hypokalemia; Z66 Do not resuscitate; Z51.5 Encounter for palliative care; Z87.891 Personal history of nicotine dependence; Z79.02 Long term (current) use of antithrombotics/antiplatelets; Z79.01 Long term (current) use of anticoagulants; R53.81 Other malaise; R13.10 Dysphagia, unspecified; H91.90 Unspecified hearing loss, unspecified ear; B96.89 Other specified bacterial agents as the cause of diseases classified elsewhere; G89.29 Other chronic pain; G47.00 Insomnia, unspecified; Z86.73 Personal history of transient ischemic attack (TIA), and cerebral infarction without residual deficits; Z68.27 Body mass index [BMI] 27.0-27.9, adult
CPT/HCPCS: 36415; 70450; 71045; 80048; 80053; 80202; 81001; 82962; 83605; 83735; 84100; 84443; 84484; 85025; 85027; 85610; 85730; 87040; 87077; 87086; 87088; 87149; 87186; 87428; 87449; 87633; 87641; 92526; 92610; 93005; 93306; 94668; 99252; 99285; J2185; J7030; J7040; J7050; P9612; A4216; C8929; G0463; J0696; J1940